=== PATIENT | female | born 1950 | race African-American/Black ===

== ENCOUNTER 2016-12-19 07:08 | Inpatient (IN) | payer MEDICARE, OTHER ==
[2016-12-19] MEDS ORDERED: SODIUM CHLORIDE 0.9% 1,000 ML IV STA (07:27)
--- NOTE | 2016-12-19 07:33 | ED ---
Syncope HPI - General Chief Complaint: Syncope Stated Complaint: Syncope/Fall Time Seen by Provider: 12/19/16 07:08 Source: patient, EMS, RN notes reviewed Mode of arrival: EMS Limitations: no limitations - History of Present Illness Initial Comments: This is a 66-year-old female history of congestive heart failure and morbid obesity who states she went to bed last night blurry murmur that she forgot her phone and got up and next thing she knew she woke up on the floor in the morning. She does not recall passing out she notes she laid on the floor alive however she denies any head or neck or torso pain she states she has had a cough with clear phlegm no fevers chills or sweats she has no prior history of syncope. She denied any palpitations or chest pain. MD Complaint: loss of consciousness - Related Data Home Medications Medication Instructions Recorded Confirmed Albuterol Inhaler [Ventolin Hfa 2 puff INHALATION RT-Q4H PRN 12/19/16 12/19/16 Inhaler] Allopurinol [Zyloprim] 300 mg PO DAILY 12/19/16 12/19/16 Ammonium Lactate Lotion 1 applic TOPICAL TID 12/19/16 12/19/16 [Lac-Hydrin 12% Lotion] Carvedilol Phosphate [Coreg Cr] 40 mg PO DAILY 12/19/16 12/19/16 Cholecalciferol [Vitamin D3] 2,000 unit PO DAILY 12/19/16 12/19/16 Ferrous Sulfate [Feosol] 325 mg PO DAILY 12/19/16 12/19/16 Folic Acid 1 mg PO DAILY 12/19/16 12/19/16 Furosemide [Lasix] 40 mg PO TID 12/19/16 12/19/16 Ipratropium-Albuterol Nebulize 3 ml INHALATION RT-Q6H 12/19/16 12/19/16 [Duoneb 0.5 mg-3 mg/3 ml Soln] Potassium Chloride [Klor-Con 20] 20 meq PO BID 12/19/16 12/19/16 Allergies Allergy/AdvReac Type Severity Reaction Status Date / Time No Known Allergies Allergy Verified 12/19/16 10:27 Review of Systems ROS Statement: Those systems with pertinent positive or pertinent negative responses have been documented in the HPI. ROS Other: All systems not noted in ROS Statement are negative. Past Medical History Past Medical History: Atrial Fibrillation, Hypertension Additional Past Medical History / Comment(s): gout, morbid obesity History of Any Multi-Drug Resistant Organisms: None Reported Past Surgical History: Section, Ear Surgery Past Psychological History: No Psychological Hx Reported Smoking Status: Former smoker Past Alcohol Use History: None Reported Past Drug Use History: None Reported General Exam - General Exam Comments Initial Comments: This is a well-developed morbidly obese female she is awake alert oriented 3 Limitations: no limitations General appearance: alert, in no apparent distress Head exam: Present: atraumatic, normocephalic, normal inspection Eye exam: Present: normal appearance, PERRL, EOMI. Absent: scleral icterus, conjunctival injection, periorbital swelling ENT exam: Present: normal exam, mucous membranes moist Neck exam: Present: normal inspection. Absent: tenderness, meningismus, lymphadenopathy Respiratory exam: Present: wheezes (Occasional wheeze), decreased breath sounds. Absent: respiratory distress, rales, rhonchi, stridor Cardiovascular Exam: Present: normal rhythm, tachycardia, normal heart sounds. Absent: systolic murmur, diastolic murmur, rubs, gallop, clicks GI/Abdominal exam: Present: soft, normal bowel sounds, other (Obese abdomen). Absent: distended, tenderness, guarding, rebound, rigid, bruit, pulsatile mass Extremities exam: Present: full ROM, normal capillary refill, pedal edema, other (Stasis dermatitis with some edema noted). Absent: tenderness, joint swelling, calf tenderness Back exam: Present: normal inspection Neurological exam: Present: alert, oriented X3, CN II-XII intact Psychiatric exam: Present: normal affect, normal mood Skin exam: Present: warm, dry, intact, normal color. Absent: rash Course Vital Signs 12/19/16 12/19/16 12/19/16 07:13 07:25 07:27 Temperature 97.1 F L Pulse Rate 108 H Pulse Rate [ 104 H Remote Sensing Technician ] Respiratory 18 16 Rate Blood Pressure 227/102 O2 Sat by Pulse 92 L Oximetry 12/19/16 12/19/16 12/19/16 07:31 09:17 10:10 Temperature 98 F Pulse Rate 104 H 103 H 108 H Pulse Rate [ Remote Sensing Technician ] Respiratory 18 18 24 Rate Blood Pressure 181/87 189/94 O2 Sat by Pulse 96 99 Oximetry 12/19/16 10:46 Temperature Pulse Rate 103 H Pulse Rate [ Remote Sensing Technician ] Respiratory 24 Rate Blood Pressure 181/99 O2 Sat by Pulse 98 Oximetry EKG Findings - EKG Results: EKG: interpreted by NARCISA, sinus rhythm (Sinus rhythm with rate of 51. We'll 158 QRS duration 14 QT/QTC of 474/436 st-t wave changes are seen.) Medical Decision Making - Medical Decision Making I did reevaluate patient several occasions he is feeling much improved. I did discuss case with Dr. Lemons the patient will be rescheduled for a cardiac cath earlier this week. - Lab Data Result diagrams: 12/19/16 07:10 12/19/16 07:10 Lab Results 12/19/16 12/19/16 12/19/16 Range/Units 07:10 07:10 07:10 WBC 6.1 (3.8-10.6) k/uL RBC 4.63 (3.80-5.40) m/uL Hgb 12.6 (11.4-16.0) gm/dL Hct 43.6 (34.0-46.0) % MCV 94.3 (80.0-100.0) fL MCH 27.2 (25.0-35.0) pg MCHC 28.9 L (31.0-37.0) g/dL RDW 17.8 H (11.5-15.5) % Plt Count 142 L (150-450) k/uL Neutrophils % 72 % Lymphocytes % 12 % Monocytes % 10 % Eosinophils % 1 % Basophils % 1 % Neutrophils # 4.4 (1.3-7.7) k/uL Lymphocytes # 0.7 L (1.0-4.8) k/uL Monocytes # 0.6 (0-1.0) k/uL Eosinophils # 0.1 (0-0.7) k/uL Basophils # 0.1 (0-0.2) k/uL Hypochromasia Marked Anisocytosis Slight PT (9.0-12.0) sec INR (<1.1) APTT (22.0-30.0) sec Sodium (137-145) mmol/L Potassium (3.5-5.1) mmol/L Chloride (98-107) mmol/L Carbon Dioxide (22-30) mmol/L Anion Gap mmol/L BUN (7-17) mg/dL Creatinine (0.52-1.04) mg/dL Est GFR (MDRD) Af Amer (>60 ml/min/1.73 sqM) Est GFR (MDRD) Non-Af (>60 ml/min/1.73 sqM) Glucose (74-99) mg/dL Calcium (8.4-10.2) mg/dL Magnesium (1.6-2.3) mg/dL Total Bilirubin (0.2-1.3) mg/dL AST (14-36) U/L ALT (9-52) U/L Alkaline Phosphatase (38-126) U/L Total Creatine Kinase 83 (30-135) U/L CK-MB (CK-2) 3.6 H* (0.0-2.4) ng/mL CK-MB (CK-2) Rel Index 4.3 Troponin I 0.022 (0.000-0.034) ng/mL NT-Pro-B Natriuret Pep 6580 pg/mL Total Protein (6.3-8.2) g/dL Albumin (3.5-5.0) g/dL 12/19/16 12/19/16 Range/Units 07:10 07:10 WBC (3.8-10.6) k/uL RBC (3.80-5.40) m/uL Hgb (11.4-16.0) gm/dL Hct (34.0-46.0) % MCV (80.0-100.0) fL MCH (25.0-35.0) pg MCHC (31.0-37.0) g/dL RDW (11.5-15.5) % Plt Count (150-450) k/uL Neutrophils % % Lymphocytes % % Monocytes % % Eosinophils % % Basophils % % Neutrophils # (1.3-7.7) k/uL Lymphocytes # (1.0-4.8) k/uL Monocytes # (0-1.0) k/uL Eosinophils # (0-0.7) k/uL Basophils # (0-0.2) k/uL Hypochromasia Anisocytosis PT 14.9 H (9.0-12.0) sec INR 1.5 (<1.1) APTT 23.9 (22.0-30.0) sec Sodium 145 (137-145) mmol/L Potassium 4.3 (3.5-5.1) mmol/L Chloride 106 (98-107) mmol/L Carbon Dioxide 28 (22-30) mmol/L Anion Gap 11 mmol/L BUN 26 H (7-17) mg/dL Creatinine 1.31 H (0.52-1.04) mg/dL Est GFR (MDRD) Af Amer 49 (>60 ml/min/1.73 sqM) Est GFR (MDRD) Non-Af 41 (>60 ml/min/1.73 sqM) Glucose 98 (74-99) mg/dL Calcium 8.7 (8.4-10.2) mg/dL Magnesium 2.0 (1.6-2.3) mg/dL Total Bilirubin 1.4 H (0.2-1.3) mg/dL AST 100 H (14-36) U/L ALT 270 H (9-52) U/L Alkaline Phosphatase 213 H (38-126) U/L Total Creatine Kinase (30-135) U/L CK-MB (CK-2) (0.0-2.4) ng/mL CK-MB (CK-2) Rel Index Troponin I (0.000-0.034) ng/mL NT-Pro-B Natriuret Pep pg/mL Total Protein 6.7 (6.3-8.2) g/dL Albumin 3.2 L (3.5-5.0) g/dL - Radiology Data Radiology results: report reviewed (Imaging study shows no acute findings.), image reviewed Disposition Clinical Impression: Hypoglycemia Disposition: HOME SELF-CARE Condition: Good Instructions: Hypoglycemia in a Person with Diabetes (ED)
[2016-12-19 08:03] LABS: Anisocytosis Slight; Basophils # (A) 0.1 k/uL (0-0.2); Basophils % (A) 1 %; CH 27.2; CHCM 29.1; Eosinophils # (A) 0.1 k/uL (0-0.7); Eosinophils % (A) 1 %; HCT 43.6 % (34.0-46.0); HDW 3.21; HGB 12.6 gm/dL (11.4-16.0); Hypochromasia Marked; Luc # (Auto) 0.23; Luc % (Auto) 4; Lymphocytes # (A) 0.7 k/uL (1.0-4.8); Lymphocytes % (A) 12 %; MCH 27.2 pg (25.0-35.0); MCHC 28.9 g/dL (31.0-37.0); MCV 94.3 fL (80.0-100.0); Mean Platelet Volume 9.1; Monocytes # (A) 0.6 k/uL (0-1.0); Monocytes % (A) 10 %; Neutrophils # (A) 4.4 k/uL (1.3-7.7); Neutrophils % (A) 72 %; RBC 4.63 m/uL (3.80-5.40); RDW 17.8 % (11.5-15.5); WBC 6.1 k/uL (3.8-10.6); WBC (Perox) 6.03
[2016-12-19 08:22] LABS: Calcium 8.7 mg/dL (8.4-10.2); Potassium 4.3 mmol/L (3.5-5.1); Total Bilirubin 1.4 mg/dL (0.2-1.3); Total Protein 6.7 g/dL (6.3-8.2)
[2016-12-19 08:24] LABS: INR 1.5 (<1.1); Partial Thromboplastin Time 23.9 sec (22.0-30.0); Prothrombin Time 14.9 sec (9.0-12.0)
--- NOTE | 2016-12-19 08:33 | XR ---
EXAMINATION TYPE: XR chest 2V DATE OF EXAM: 12/19/2016 8:14 AM COMPARISON: 09/17/2013 HISTORY: 66-year-old female with syncope TECHNIQUE: AP and lateral views FINDINGS: Limited exam due to portable technique and large patient body habitus. Heart appears enlarged. Accent uation of the interstitium and pulmonary vasculature appears increased from previous. Also, there may be trace effusions on the lateral view. Left perihilar prominence can be reassessed at follow-up. IMPRESSION: 1. Limited portable exam. Correlate for CHF and pulmonary vascular congestion. Trace pleural effusion s. 2. Left hilar prominence can be reassessed with a follow-up dedicated PA view of the chest when the p atient is able though appears to be chronic.
[2016-12-19 08:49] LABS: Troponin I 0.022 ng/mL (0.000-0.034)
[2016-12-19 08:51] LABS: Creatine Kinase MB 3.6 ng/mL (0.0-2.4)
--- NOTE | 2016-12-19 09:53 | CT ---
EXAMINATION TYPE: CT brain wo con DATE OF EXAM: 12/19/2016 9:47 AM COMPARISON: NONE HISTORY: 66-year-old female with Syncope/Fall TECHNIQUE: Examination was done in axial plane without intravenous contrast. Coronal and sagittal reconstructio ns performed. CT DLP: 1090.40 mGycm Automated exposure control for dose reduction was used. FINDINGS: There is no evidence of acute intracranial hemorrhage, acute ischemic changes, mass, mass-effect, or extra-axial fluid collection. There is no effacement of cerebral sulci or basal subarachnoid cister ns. There is no hydrocephalus. There is no midline shift. Patel-white matter distinction is preserv ed. Mild mucosal thickening throughout the paranasal sinuses with trace air fluid levels in the right sph enoid and left maxillary sinuses. Orbits and globes are intact. There is normal variant of hyperostos is frontalis interna. No calvarial fracture. Mastoid air cells well pneumatized. IMPRESSION: 1. No acute intracranial abnormality seen. 2. Trace air-fluid levels in the left maxillary and right sphenoid sinuses; correlate for any symptom s of acute sinusitis.
[2016-12-19] MEDS ORDERED: ALBUTEROL NEBULIZED 2.5 MG/3 ML INHALATION PRN (11:25)
--- NOTE | 2016-12-19 11:28 | ED ---
Medical Decision Making - Medical Decision Making I did discuss findings with the patient family members patient will be admitted for evaluation for syncope. She is seen by the visiting physicians at this time she will be admitted to the hospitalist service. - Lab Data Result diagrams: 12/19/16 07:10 12/19/16 07:10 Lab Results 12/19/16 12/19/16 12/19/16 Range/Units 07:10 07:10 07:10 WBC 6.1 (3.8-10.6) k/uL RBC 4.63 (3.80-5.40) m/uL Hgb 12.6 (11.4-16.0) gm/dL Hct 43.6 (34.0-46.0) % MCV 94.3 (80.0-100.0) fL MCH 27.2 (25.0-35.0) pg MCHC 28.9 L (31.0-37.0) g/dL RDW 17.8 H (11.5-15.5) % Plt Count 142 L (150-450) k/uL Neutrophils % 72 % Lymphocytes % 12 % Monocytes % 10 % Eosinophils % 1 % Basophils % 1 % Neutrophils # 4.4 (1.3-7.7) k/uL Lymphocytes # 0.7 L (1.0-4.8) k/uL Monocytes # 0.6 (0-1.0) k/uL Eosinophils # 0.1 (0-0.7) k/uL Basophils # 0.1 (0-0.2) k/uL Hypochromasia Marked Anisocytosis Slight PT (9.0-12.0) sec INR (<1.1) APTT (22.0-30.0) sec Sodium (137-145) mmol/L Potassium (3.5-5.1) mmol/L Chloride (98-107) mmol/L Carbon Dioxide (22-30) mmol/L Anion Gap mmol/L BUN (7-17) mg/dL Creatinine (0.52-1.04) mg/dL Est GFR (MDRD) Af Amer (>60 ml/min/1.73 sqM) Est GFR (MDRD) Non-Af (>60 ml/min/1.73 sqM) Glucose (74-99) mg/dL Calcium (8.4-10.2) mg/dL Magnesium (1.6-2.3) mg/dL Total Bilirubin (0.2-1.3) mg/dL AST (14-36) U/L ALT (9-52) U/L Alkaline Phosphatase (38-126) U/L Total Creatine Kinase 83 (30-135) U/L CK-MB (CK-2) 3.6 H* (0.0-2.4) ng/mL CK-MB (CK-2) Rel Index 4.3 Troponin I 0.022 (0.000-0.034) ng/mL NT-Pro-B Natriuret Pep 6580 pg/mL Total Protein (6.3-8.2) g/dL Albumin (3.5-5.0) g/dL 12/19/16 12/19/16 Range/Units 07:10 07:10 WBC (3.8-10.6) k/uL RBC (3.80-5.40) m/uL Hgb (11.4-16.0) gm/dL Hct (34.0-46.0) % MCV (80.0-100.0) fL MCH (25.0-35.0) pg MCHC (31.0-37.0) g/dL RDW (11.5-15.5) % Plt Count (150-450) k/uL Neutrophils % % Lymphocytes % % Monocytes % % Eosinophils % % Basophils % % Neutrophils # (1.3-7.7) k/uL Lymphocytes # (1.0-4.8) k/uL Monocytes # (0-1.0) k/uL Eosinophils # (0-0.7) k/uL Basophils # (0-0.2) k/uL Hypochromasia Anisocytosis PT 14.9 H (9.0-12.0) sec INR 1.5 (<1.1) APTT 23.9 (22.0-30.0) sec Sodium 145 (137-145) mmol/L Potassium 4.3 (3.5-5.1) mmol/L Chloride 106 (98-107) mmol/L Carbon Dioxide 28 (22-30) mmol/L Anion Gap 11 mmol/L BUN 26 H (7-17) mg/dL Creatinine 1.31 H (0.52-1.04) mg/dL Est GFR (MDRD) Af Amer 49 (>60 ml/min/1.73 sqM) Est GFR (MDRD) Non-Af 41 (>60 ml/min/1.73 sqM) Glucose 98 (74-99) mg/dL Calcium 8.7 (8.4-10.2) mg/dL Magnesium 2.0 (1.6-2.3) mg/dL Total Bilirubin 1.4 H (0.2-1.3) mg/dL AST 100 H (14-36) U/L ALT 270 H (9-52) U/L Alkaline Phosphatase 213 H (38-126) U/L Total Creatine Kinase (30-135) U/L CK-MB (CK-2) (0.0-2.4) ng/mL CK-MB (CK-2) Rel Index Troponin I (0.000-0.034) ng/mL NT-Pro-B Natriuret Pep pg/mL Total Protein 6.7 (6.3-8.2) g/dL Albumin 3.2 L (3.5-5.0) g/dL - Radiology Data Radiology results: report reviewed (I did review the imaging and reports evidence of sinusitis on the CAT scan evidence of pulmonary basilar congestion the x-ray.), image reviewed Critical Care Time Critical Care Time: Yes Critical Care Time: 35 minutes of critical care time which included monitoring the EMS run as well as discussed with paramedics. History physical lab and x-ray evaluation reevaluation the patient to response to therapy reevaluation the patient discussed with family members admission orders documentation above evaluation of old charting available. Disposition Clinical Impression: Congestive heart failure (CHF), Syncope and collapse Disposition: ADMITTED IP TO THIS HOSP Condition: Stable
[2016-12-19 11:33] LABS: Appearance,Urine Cloudy (Clear); Bacteria,Urine Occasional /hpf; Bilirubin,Urine Negative (Negative); Glucose,Urine (UA) Negative (Negative); Ketones,Urine Negative (Negative); Leukocyte Esterase,Urine Small (Negative); Mucus,Urine Rare /hpf; Nitrite,Urine Positive (Negative); Particle Count 79053; Protein,Urine 2+ (Negative); RBC,Urine 170 /hpf (0-5); Specific Gravity,Urine 1.017 (1.001-1.035); Squamous Epithelial Cell,Urine 1 /hpf (0-4); UA Billing (MACRO vs. MICRO) MICRO; WBC,Urine >182 /hpf (0-5)
--- NOTE | 2016-12-19 12:35 | ED ---
Medical Decision Making - Medical Decision Making Second addendum the urinary sample was obtained and does show evidence of UTI patient be placed on antibiotics. - Lab Data Result diagrams: 12/19/16 07:10 12/19/16 07:10 Lab Results 12/19/16 12/19/16 12/19/16 Range/Units 07:10 07:10 07:10 WBC 6.1 (3.8-10.6) k/uL RBC 4.63 (3.80-5.40) m/uL Hgb 12.6 (11.4-16.0) gm/dL Hct 43.6 (34.0-46.0) % MCV 94.3 (80.0-100.0) fL MCH 27.2 (25.0-35.0) pg MCHC 28.9 L (31.0-37.0) g/dL RDW 17.8 H (11.5-15.5) % Plt Count 142 L (150-450) k/uL Neutrophils % 72 % Lymphocytes % 12 % Monocytes % 10 % Eosinophils % 1 % Basophils % 1 % Neutrophils # 4.4 (1.3-7.7) k/uL Lymphocytes # 0.7 L (1.0-4.8) k/uL Monocytes # 0.6 (0-1.0) k/uL Eosinophils # 0.1 (0-0.7) k/uL Basophils # 0.1 (0-0.2) k/uL Hypochromasia Marked Anisocytosis Slight PT (9.0-12.0) sec INR (<1.1) APTT (22.0-30.0) sec Sodium (137-145) mmol/L Potassium (3.5-5.1) mmol/L Chloride (98-107) mmol/L Carbon Dioxide (22-30) mmol/L Anion Gap mmol/L BUN (7-17) mg/dL Creatinine (0.52-1.04) mg/dL Est GFR (MDRD) Af Amer (>60 ml/min/1.73 sqM) Est GFR (MDRD) Non-Af (>60 ml/min/1.73 sqM) Glucose (74-99) mg/dL Calcium (8.4-10.2) mg/dL Magnesium (1.6-2.3) mg/dL Total Bilirubin (0.2-1.3) mg/dL AST (14-36) U/L ALT (9-52) U/L Alkaline Phosphatase (38-126) U/L Total Creatine Kinase 83 (30-135) U/L CK-MB (CK-2) 3.6 H* (0.0-2.4) ng/mL CK-MB (CK-2) Rel Index 4.3 Troponin I 0.022 (0.000-0.034) ng/mL NT-Pro-B Natriuret Pep 6580 pg/mL Total Protein (6.3-8.2) g/dL Albumin (3.5-5.0) g/dL Urine Color Urine Appearance (Clear) Urine pH (5.0-8.0) Ur Specific [place] (1.001-1.035) Urine Protein (Negative) Urine Glucose (UA) (Negative) Urine Ketones (Negative) Urine Blood (Negative) Urine Nitrate (Negative) Urine Bilirubin (Negative) Urine Urobilinogen (<2.0) mg/dL Ur Leukocyte Esterase (Negative) Urine RBC (0-5) /hpf Urine WBC (0-5) /hpf Urine WBC Clumps (None) /hpf Ur Squamous Epith Cells (0-4) /hpf Urine Bacteria (None) /hpf Urine Mucus (None) /hpf 12/19/16 12/19/16 12/19/16 Range/Units 07:10 07:10 11:09 WBC (3.8-10.6) k/uL RBC (3.80-5.40) m/uL Hgb (11.4-16.0) gm/dL Hct (34.0-46.0) % MCV (80.0-100.0) fL MCH (25.0-35.0) pg MCHC (31.0-37.0) g/dL RDW (11.5-15.5) % Plt Count (150-450) k/uL Neutrophils % % Lymphocytes % % Monocytes % % Eosinophils % % Basophils % % Neutrophils # (1.3-7.7) k/uL Lymphocytes # (1.0-4.8) k/uL Monocytes # (0-1.0) k/uL Eosinophils # (0-0.7) k/uL Basophils # (0-0.2) k/uL Hypochromasia Anisocytosis PT 14.9 H (9.0-12.0) sec INR 1.5 (<1.1) APTT 23.9 (22.0-30.0) sec Sodium 145 (137-145) mmol/L Potassium 4.3 (3.5-5.1) mmol/L Chloride 106 (98-107) mmol/L Carbon Dioxide 28 (22-30) mmol/L Anion Gap 11 mmol/L BUN 26 H (7-17) mg/dL Creatinine 1.31 H (0.52-1.04) mg/dL Est GFR (MDRD) Af Amer 49 (>60 ml/min/1.73 sqM) Est GFR (MDRD) Non-Af 41 (>60 ml/min/1.73 sqM) Glucose 98 (74-99) mg/dL Calcium 8.7 (8.4-10.2) mg/dL Magnesium 2.0 (1.6-2.3) mg/dL Total Bilirubin 1.4 H (0.2-1.3) mg/dL AST 100 H (14-36) U/L ALT 270 H (9-52) U/L Alkaline Phosphatase 213 H (38-126) U/L Total Creatine Kinase (30-135) U/L CK-MB (CK-2) (0.0-2.4) ng/mL CK-MB (CK-2) Rel Index Troponin I (0.000-0.034) ng/mL NT-Pro-B Natriuret Pep pg/mL Total Protein 6.7 (6.3-8.2) g/dL Albumin 3.2 L (3.5-5.0) g/dL Urine Color Light Red Urine Appearance Cloudy H (Clear) Urine pH 6.0 (5.0-8.0) Ur Specific [place] 1.017 (1.001-1.035) Urine Protein 2+ H (Negative) Urine Glucose (UA) Negative (Negative) Urine Ketones Negative (Negative) Urine Blood Large H (Negative) Urine Nitrate Positive H (Negative) Urine Bilirubin Negative (Negative) Urine Urobilinogen 3.0 (<2.0) mg/dL Ur Leukocyte Esterase Small H (Negative) Urine RBC 170 H (0-5) /hpf Urine WBC >182 H (0-5) /hpf Urine WBC Clumps Occasional H (None) /hpf Ur Squamous Epith Cells 1 (0-4) /hpf Urine Bacteria Occasional H (None) /hpf Urine Mucus Rare H (None) /hpf Disposition Clinical Impression: Congestive heart failure (CHF), Syncope and collapse, Urinary tract infection Disposition: ADMITTED IP TO THIS HOSP Condition: Stable
[2016-12-19] MEDS ORDERED: NITROGLYCERIN OINT 1 INCH/GM PACKET TOPICAL SCH (13:00)
[2016-12-19] MEDS: SODIUM CHLORIDE 0.9% 1,000 ML IV SCH (13:26)
[2016-12-19] MEDS: ISOSORBIDE MONONITRATE ER 30 MG TAB.ER.24H PO SCH (13:29)
[2016-12-19] MEDS: IPRATROPIUM-ALBUTEROL 3 ML NEB INHALATION SCH ×2 (13:46→20:01)
--- NOTE | 2016-12-19 13:47 | CONS ---
DATE OF CONSULTATION: Ms. Anand is a 66-year-old female with a history of hypertension, history of atrial fibrillation/flutter, although not well documented to me at this point, who was followed by the visiting physician, while at home, turned to get the remote control, felt dizzy and fell to the ground. Apparently, she had a brief syncopal episode, although the duration is not available to me, but she does not think it was a long time. She came to, she was awake, alert, was on the ground for a long time and subsequently was brought into the emergency room. Patient denies any chest pain. She is very limited in her physical activity, has severe dyspnea on exertion. She has morbid obesity, obstructive sleep apnea, uses a CPAP at home. She denies any palpitations. She has no prior syncope. She has no history of PND. She has chronic peripheral edema and chronic skin changes. She has a cough. She has recently been treated for upper respiratory infection. She had vaginal bleeding and is scheduled for D&C. She used to be anticoagulated but has been stopped in August according to her, because of the bleeding. She was at that time admitted to [facility]. Patient denies any prior history of myocardial infarction, but she has history of congestive heart failure according to her. The evaluation of her systolic function is not available to me. Her coronary risk factors are marked for hypertension. She is a nonsmoker, nondiabetic, lipid profile is not available to me. Her medications include DuoNeb, iron, Coreg 40 mg daily, Lasix 40 mg 3 times a day, allopurinol, potassium and folic acid. REVIEW OF SYSTEMS: RESPIRATORY SYSTEM: She had a cough, history of chronic dyspnea on exertion, quite severe. History of obstructive sleep apnea. GI SYSTEM: She has no recent nausea, no vomiting. She has no recent GI bleeding. SYSTEM: She had the vaginal bleeding. NERVOUS SYSTEM: No history of stroke or seizure. PHYSICAL EXAMINATION: A 66-year-old female, alert, oriented, in no apparent distress, morbidly obese. Blood pressure 182/90 with a heart rate in the 100s. HEAD: Normocephalic. EYES: Sclerae nonicteric. NECK: Good upstroke and able ( ). LUNGS: Clear to auscultation. HEART: Tachycardic. S1, S2, no S3, with a systolic murmur at the base. No diastolic murmur. ABDOMEN: Soft, obese, nontender. EXTREMITIES: Chronic skin changes with 2 to 3+ edema bilaterally. LAB DATA: BUN and creatinine 26 and 1.31. Potassium 4.3. Her AST is 100, ALT is 270. NT-proBNP is 6,580. Troponin 0.022. Hemoglobin of 12.6, platelet count of 142. INR 1.5. EKG shows atrial flutter with 2:1 conduction, a rate of [address]-T wave changes. Chest x-ray raised the possibility of congestive heart failure, though it was suboptimal in quality. Her CT scan of the head revealed no acute changes. IMPRESSION: 1. Symptoms of fall and possible syncope could be orthostatic hypotension. 2. Chronic peripheral edema with morbid obesity. Patient may have diastolic dysfunction heart failure. The edema according to her has been chronic and I do not believe that we are have an acute episode of congestive heart failure. 3. Atrial flutter/fibrillation appears to be chronic. 4. History of hypertension. 5. Morbid obesity. 6. Obstructive sleep apnea. RECOMMENDATION: Will switch her to intravenous diuretics. I will add to her regimen hydralazine and nitrate to optimize her blood pressure control. I will increase the dose of her beta shira. I will obtain the prior work-up that was done in [facility], will obtain an echocardiogram with Doppler. I will hold on adding an JUDIE inhibitor pending the progression of her renal function and her level before. Depending on her progress, further recommendation will be made. The patient will need to be anticoagulated, but apparently that was held because of severe vaginal bleeding. Thank you for this consult. Will follow with you.
[2016-12-19] MEDS: HEPARIN SODIUM,PORCINE 5,000 UNIT/ML 1 ML VIAL SQ SCH ×2 (15:20→22:46)
[2016-12-19] MEDS: hydrALAZINE HCL 25 MG TAB PO SCH ×2 (15:21→21:04)
[2016-12-19] MEDS: FUROSEMIDE 10 MG/ML 4 ML VIAL IV SCH ×2 (15:21→22:46)
[2016-12-19] MEDS ORDERED: FUROSEMIDE 40 MG TAB PO SCH ×2 (16:00)
[2016-12-19] MEDS: CARVEDILOL 12.5 MG TAB PO SCH (17:23)
[2016-12-19] MEDS ORDERED: CARVEDILOL 12.5 MG TAB PO SCH (17:30)
[2016-12-19] MEDS: POTASSIUM CHLORIDE ER 20 MEQ TAB.ER PO SCH (21:04)
[2016-12-20] MEDS: IPRATROPIUM-ALBUTEROL 3 ML NEB INHALATION SCH ×4 (02:19→20:17)
[2016-12-20 06:44] LABS: Calcium 8.2 mg/dL (8.4-10.2)
[2016-12-20] MEDS: CARVEDILOL 12.5 MG TAB PO SCH ×2 (08:12→16:45)
[2016-12-20] MEDS: ISOSORBIDE MONONITRATE ER 30 MG TAB.ER.24H PO SCH (08:12)
[2016-12-20] MEDS: FUROSEMIDE 10 MG/ML 4 ML VIAL IV SCH ×3 (08:13→23:18)
[2016-12-20] MEDS: CHOLECALCIFEROL 1,000 UNIT TAB PO SCH (08:13)
[2016-12-20] MEDS: FOLIC ACID 1 MG TAB PO SCH (08:13)
[2016-12-20] MEDS: ALLOPURINOL 300 MG TAB PO SCH (08:13)
[2016-12-20] MEDS: FERROUS SULFATE 325 MG TAB PO SCH (08:13)
[2016-12-20] MEDS: HEPARIN SODIUM,PORCINE 5,000 UNIT/ML 1 ML VIAL SQ SCH ×3 (08:13→23:19)
[2016-12-20] MEDS: POTASSIUM CHLORIDE ER 20 MEQ TAB.ER PO SCH ×2 (08:13→21:02)
[2016-12-20] MEDS: hydrALAZINE HCL 25 MG TAB PO SCH ×3 (08:13→21:02)
[2016-12-20 12:18] LABS: Glucose,Whole Blood 110 mg/dL (75-99)
[2016-12-20] MEDS: SODIUM CHLORIDE 0.9% 1,000 ML IV SCH (12:46)
--- NOTE | 2016-12-20 13:50 | HP ---
DATE OF ADMISSION: 12/19/2016 PRESENTING COMPLAINT: Dizzy, passed out. HISTORY OF PRESENTING COMPLAINT: This is a 66-year-old patient who follows with [facility]. Chronic stable medical conditions include asthma, hypertension, osteoarthritis, sleep apnea, gout. Patient uses a walker to get about in her apartment. Patient is morbidly obese with a weight of over 200 kg. Patient has occasional falls. Went to get her phone and then patient felt dizzy and then she fell down. She thinks she must have gone for about at least 20 minutes as one of the programs she watches in the evening was still on when she came about. Denies any palpitations or chest pain. Patient when arrived her, found to be in atrial flutter with a rate just over 100. Patient denies any headache. No change in vision, no change in speech, no focal weakness. The patient just is recovering from a cough and cold. Did not take any medication for the same. REVIEW OF SYSTEMS: CONSTITUTIONAL: Tired. HEENT: None. RESPIRATORY: As above. CARDIOVASCULAR: No chest pain. GASTROINTESTINAL: None. GENITOURINARY: None. MUSCULOSKELETAL: Pain in the joints. DERMATOLOGICAL: None. HEMATOLOGICAL: None. LYMPHATIC: None. PSYCHIATRY: None. NEUROLOGICAL: No focal. PAST MEDICAL HISTORY: Atrial fibrillation, asthma, congestive heart failure, hypertension, osteoarthritis, pneumonia, sleep apnea with CPAP, gout, arthritis in multiple joints, wounds. PAST SURGICAL HISTORY: , knee surgery, debridement bilateral pedal toenails. SOCIAL HISTORY: Lives at [facility] on the second floor, uses a walker to get about. Uses transportation from [employer]. Patient smoked for about 32 years, stopped in 2002. FAMILY HISTORY: Mother had colon cancer at age of 54. HOME MEDICATIONS: 1. Lac-Hydrin 12% topical t.i.d. 2. DuoNeb q.6. 3. Ferrous sulfate 325 p.o. daily. 4. Coreg CR 40 mg daily. 5. Ventolin HFA 2 puffs q.4 p.r.n. 6. Lasix 40 mg t.i.d. 7. Vitamin D3 two thousand units daily. 8. Allopurinol 300 mg daily. 9. Potassium 20 mEq p.o. b.i.d. 10. Folic acid 1 mg daily. ALLERGIES: None. On examination, temperature 97.1, pulse 108, respiration 18, blood pressure initially 227/102, repeat 181/87, pulse ox 96% on room air. GENERAL APPEARANCE: Morbidly obese with 200 kg and BMI of 73.6, sitting up in a chair, not in distress. EYES: Pupils equal, conjunctivae normal. HEENT: Neck short, thick, mass not palpable. JVD unable to assess. Respiratory effort increased. LUNGS: Distant breath sounds. CARDIOVASCULAR: Heart sounds distant. No edema. ABDOMEN: Distended, soft. Liver and spleen not palpable. LYMPHATIC: No lymph nodes palpable in neck or axillae. PSYCHIATRY: Alert and oriented x3. Mood and affect normal. NEUROLOGICAL: Pupils equal. Cranial nerves grossly intact. Power and sensation grossly intact. INVESTIGATIONS: Telemetry shows heart rate goes up to 150 with minimal activity. White count 6.1, hemoglobin 12.6, potassium 4.3. BUN 26, creatinine 1.31, troponin I 0.022, TSH positive for nitrate, leukocyte esterase, WBC 182. ASSESSMENT: 1. Persistent atrial fibrillation with rapid ventricular rate with minimal activity, likely responsible for patient's episode of syncope. 2. Acute urinary tract infection. 3. Increased LFTs, likely fatty liver. 4. Chronic kidney disease stage III, probably from hypertensive nephrosclerosis. 5. Chronic obstructive pulmonary disease in an ex-smoker. 6. Essential hypertension. 7. Primary osteoarthritis in multiple joints, bilateral. 8. Obstructive sleep apnea, uses a CPAP. 9. Chronic gout. 10. Thrombocytopenia, mild. PLAN: Patient is on Coreg 25 twice a day, switched over here. Home medications are resumed. Patient definitely not a candidate for anticoagulation because of history of fall she gives. Cardiology put the patient on IV Lasix, possibly from underlying diastolic dysfunction. Dose of beta shira has been increased. Care was discussed with the patient.
[2016-12-20 14:54] VITALS: BMI 73.5
--- NOTE | 2016-12-20 14:56 | P.PN ---
Subjective Principal diagnosis: Syncope This is a 66-year-old female with history of hypertension, atrial fibrillation, obstructive sleep apnea, uses CPAP at home, and chronic peripheral edema, who presented to the hospital following a brief syncopal episode. She was seen in consultation by Dr. Flores yesterday. Patient was also on some mild heart failure, diastolic, has been diuresing well on IV Lasix. The patient used to be on anticoagulation but because of vaginal bleeding this was discontinued. Although the echo report is yet pending, a verbal report was given by the garbage collector supervisor, stated that the RA pressures were elevated and right ventricle hypokinetic. Upon review of recent echo, this was similar to that. We will continue IV Lasix for 24 hours. Changed to by mouth Lasix tomorrow. Patient will need to be resumed on anticoagulation once stable from the bleeding perspective. Blood pressure today 135/60 with a heart rate in the 90s. Edema improved today. Objective - Vital Signs Vital signs: Vital Signs Temp 97.1 F L 12/20/16 08:00 Pulse 100 12/20/16 13:49 Resp 18 12/20/16 12:00 BP 135/61 12/20/16 12:00 Pulse Ox 98 12/20/16 12:00 Intake & Output 12/19/16 12/20/16 12/20/16 18:59 06:59 18:59 Intake Total 120 Output Total 300 400 Balance 120 -300 -400 Weight 200.5 kg Intake: Oral 120 Output: Urine 300 400 Other: Voiding Method Bedside Commode Bedpan Bedpan # Voids 1 1 - Exam PHYSICAL EXAMINATION: HEENT: Head is atraumatic, normocephalic. Pupils equal, round. Neck is supple. There is no elevated jugular venous pressure. HEART EXAMINATION: S1 and S2 systolic murmur is heard. CHEST EXAMINATION: Lungs are clear to auscultation. ABDOMEN: Soft, obese, nontender. Bowel sounds are heard. No organomegaly noted. EXTREMITIES: 1+ peripheral pulses with 2+ evidence of peripheral edema and no calf tenderness noted. NEUROLOGIC patient is awake, alert and oriented -3. . - Labs CBC & Chem 7: 12/19/16 07:10 12/20/16 05:32 Labs: Abnormal Lab Results - Last 24 Hours (Table) 12/20/16 12/20/16 Range/Units 05:32 12:13 BUN 23 H (7-17) mg/dL Creatinine 1.31 H (0.52-1.04) mg/dL POC Glucose (mg/dL) 110 H (75-99) mg/dL Calcium 8.2 L (8.4-10.2) mg/dL Assessment and Plan (1) Syncope Status: Acute (2) Diastolic CHF, acute on chronic Status: Acute (3) Chronic edema Status: Acute (4) Atrial flutter Status: Acute (5) HTN (hypertension) Status: Acute (6) Morbid obesity Status: Acute (7) Sleep apnea Status: Acute Plan: From cardiology's perspective, we'll continue current dose of IV Lasix until tomorrow. Continue to monitor intake and output. Patient will need to be resumed on anticoagulation once stable from a bleeding perspective. We will continue to follow. DNP note has been reviewed, I agree with a documented findings and plan of care. Patient was seen and examined.
[2016-12-20 17:33] LABS: Glucose,Whole Blood 99 mg/dL (75-99)
[2016-12-21] MEDS: CARVEDILOL 12.5 MG TAB PO SCH ×2 (06:39→17:25)
[2016-12-21] MEDS: FUROSEMIDE 10 MG/ML 4 ML VIAL IV SCH (08:12)
[2016-12-21] MEDS: HEPARIN SODIUM,PORCINE 5,000 UNIT/ML 1 ML VIAL SQ SCH ×3 (08:16→23:35)
[2016-12-21] MEDS: ISOSORBIDE MONONITRATE ER 30 MG TAB.ER.24H PO SCH (08:20)
[2016-12-21] MEDS: POTASSIUM CHLORIDE ER 20 MEQ TAB.ER PO SCH ×2 (08:20→20:59)
[2016-12-21] MEDS: ALLOPURINOL 300 MG TAB PO SCH (08:21)
[2016-12-21] MEDS: FERROUS SULFATE 325 MG TAB PO SCH (08:21)
[2016-12-21] MEDS: CHOLECALCIFEROL 1,000 UNIT TAB PO SCH (08:21)
[2016-12-21] MEDS: FOLIC ACID 1 MG TAB PO SCH (08:21)
[2016-12-21] MEDS: hydrALAZINE HCL 25 MG TAB PO SCH ×3 (08:22→20:59)
[2016-12-21] MEDS: IPRATROPIUM-ALBUTEROL 3 ML NEB INHALATION SCH ×3 (08:47→20:05)
[2016-12-21] MEDS: SODIUM CHLORIDE 0.9% 1,000 ML IV SCH (11:48)
--- NOTE | 2016-12-21 12:31 | P.PN ---
Subjective Principal diagnosis: Syncope This is a 66-year-old female with history of hypertension, atrial fibrillation, obstructive sleep apnea, uses CPAP at home, and chronic peripheral edema, who presented to the hospital following a brief syncopal episode. She was seen in consultation by Dr. Flores yesterday. Patient was also on some mild heart failure, diastolic, has been diuresing well on IV Lasix. The patient used to be on anticoagulation but because of vaginal bleeding this was discontinued. Although the echo report is yet pending, a verbal report was given by the relay telegrapher, stated that the RA pressures were elevated and right ventricle hypokinetic. Upon review of recent echo, this was similar to that. Patient was seen and examined this morning, continue to diurese well on IV Lasix. We will discontinue the IV Lasix today and put the patient back on her home dose of Lasix at 40 mg by mouth 3 times a day. Objective - Vital Signs Vital signs: Vital Signs Temp 96.8 F L 12/21/16 08:00 Pulse 74 12/21/16 11:48 Resp 16 12/21/16 11:48 BP 105/57 12/21/16 11:48 Pulse Ox 100 12/21/16 11:48 Intake & Output 12/20/16 12/21/16 12/21/16 18:59 06:59 18:59 Intake Total 360 1080 534 Output Total 1380 1000 Balance -1020 80 534 Weight 200.5 kg 200 kg Intake: IV 14 Invasive Line 1 14 Oral 360 1080 520 Output: Urine 1380 1000 Other: Voiding Method Bedpan Bedpan Bedpan Diaper # Voids 1 1 # Bowel Movements 0 0 - Exam PHYSICAL EXAMINATION: HEENT: Head is atraumatic, normocephalic. Pupils equal, round. Neck is supple. There is no elevated jugular venous pressure. HEART EXAMINATION: S1 and S2 systolic murmur is heard. CHEST EXAMINATION: Lungs are clear to auscultation. ABDOMEN: Soft, obese, nontender. Bowel sounds are heard. No organomegaly noted. EXTREMITIES: 1+ peripheral pulses with 2+ evidence of peripheral edema and no calf tenderness noted. NEUROLOGIC patient is awake, alert and oriented -3. . - Labs CBC & Chem 7: 12/19/16 07:10 12/20/16 05:32 Assessment and Plan (1) Syncope Status: Acute (2) Diastolic CHF, acute on chronic Status: Acute (3) Chronic edema Status: Acute (4) Atrial flutter Status: Acute (5) HTN (hypertension) Status: Acute (6) Morbid obesity Status: Acute (7) Sleep apnea Status: Acute Plan: From cardiology's perspective, we'll discontinue the IV Lasix, put the patient back on Lasix 40 mg one tablet by mouth 3 times a day. We will make her a follow-up appointment to see Dr. Monte in the office post discharge. DNP note has been reviewed, I agree with a documented findings and plan of care. Patient was seen and examined.
[2016-12-21] MEDS: FUROSEMIDE 40 MG TAB PO SCH ×3 (12:37→20:59)
--- NOTE | 2016-12-21 20:06 | PN ---
DATE OF SERVICE: 12/21/2016 PRESENTING COMPLAINT: Dizzy, edema. INTERVAL HISTORY: This is a patient who presented with dizziness and passed out, felt to be from underlying arrhythmia. Patient has had some underlying atrial fibrillation. The patient had been on IV Lasix, switched to p.o. Lasix today. Patient difficult to get about. 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 The patient is tolerating a diet. Overall doing better. Review of systems done for constitutional, cardiovascular, GI, pulmonary; relevant findings as above. Current medications include p.o. Lasix. On examination, temperature 96.8, pulse 81, respiratory rate 16, blood pressure 101/58, pulse ox 99% on 2 liters. GENERAL APPEARANCE: Sitting up, eating. EYES: Pupils equal. Conjunctivae normal. NECK: JVD unable to assess. RESPIRATORY: Effort normal. LUNGS: Distant breath sounds. CARDIOVASCULAR: Heart sounds distant. Minimal edema. ABDOMEN: Distended, soft. Liver and spleen not palpable. PSYCHIATRY: Alert and oriented x3. Mood and affect normal. INVESTIGATIONS: BUN 23, creatinine 1.31. ASSESSMENT: 1. Persistent atrial fibrillation likely reason for the patient's syncope. 2. Acute urinary tract infection. 3. Fatty liver causing elevated liver enzymes likely. 4. Chronic kidney stage III, probably from hypertensive nephrosclerosis. 5. Chronic obstructive pulmonary disease in an ex-smoker. 6. Essential hypertension. 7. Primary osteoarthritis in multiple joints, bilateral. 8. Obstructive sleep apnea uses CPAP. 9. Chronic gout. PLAN: Patient will be switched over to Lasix. deer farm worker looking into placement. Patient has got a total of 6 doses of Ceftin for urinary tract infection. Check labs in the morning. Awaiting results of 2-D echo.
[2016-12-21] MEDS: CEFUROXIME 250 MG TAB PO SCH (20:59)
[2016-12-22] MEDS: CARVEDILOL 12.5 MG TAB PO SCH (06:39)
[2016-12-22 06:56] LABS: Calcium 8.4 mg/dL (8.4-10.2); Potassium 4.4 mmol/L (3.5-5.1)
[2016-12-22] MEDS: IPRATROPIUM-ALBUTEROL 3 ML NEB INHALATION SCH ×2 (08:22→13:24)
[2016-12-22] MEDS: HEPARIN SODIUM,PORCINE 5,000 UNIT/ML 1 ML VIAL SQ SCH (08:26)
[2016-12-22] MEDS: ALLOPURINOL 300 MG TAB PO SCH (08:29)
[2016-12-22] MEDS: CEFUROXIME 250 MG TAB PO SCH (08:30)
[2016-12-22] MEDS: FUROSEMIDE 40 MG TAB PO SCH (08:30)
[2016-12-22] MEDS: FERROUS SULFATE 325 MG TAB PO SCH (08:30)
[2016-12-22] MEDS: FOLIC ACID 1 MG TAB PO SCH (08:31)
[2016-12-22] MEDS: CHOLECALCIFEROL 1,000 UNIT TAB PO SCH (08:31)
[2016-12-22] MEDS: hydrALAZINE HCL 25 MG TAB PO SCH (08:32)
[2016-12-22] MEDS: ISOSORBIDE MONONITRATE ER 30 MG TAB.ER.24H PO SCH (08:32)
[2016-12-22] MEDS: POTASSIUM CHLORIDE ER 20 MEQ TAB.ER PO SCH (08:32)
--- NOTE | 2016-12-22 10:52 | P.PN ---
Subjective Principal diagnosis: Syncope 66-year-old female patient with a history of hypertension, atrial fibrillation, obstructive sleep apnea, uses CPAP at home, and chronic peripheral edema present hospital following a brief syncopal episode. Patient was also noted to have some mild heart failure, diastolic was on IV Lasix and diuresed well. She is currently on by mouth Lasix. The patient had been on anticoagulation but has been on hold due to vaginal bleeding for which she needs a D&C. An echocardiogram was completed that showed elevated RA pressures and hypokinetic RV. Previous echo showed similar findings. On examination today, patient is resting comfortably laying flat in bed. She does say that she feels her breathing is shallow but does not necessarily complain of shortness of breath. His complaints of chest discomfort, palpitations, dizziness or lightheadedness. She does complain of lower extremity edema since this is related to her stopping her Lasix at home for quite some time. We did discuss the importance of medication compliance. Objective - Vital Signs Vital signs: Vital Signs Temp 96.0 F L 12/22/16 08:00 Pulse 68 12/22/16 08:35 Resp 20 12/22/16 08:00 BP 112/67 12/22/16 08:00 Pulse Ox 95 12/22/16 08:24 Intake & Output 12/21/16 12/22/16 12/22/16 18:59 06:59 18:59 Intake Total 1176 370 Output Total 250 Balance 1176 120 Weight 200.9 kg Intake: IV 14 10 Invasive Line 1 14 10 Oral 1162 360 Output: Urine 250 Other: Voiding Method Bedpan Bedside Commode Bedside Commode Diaper Diaper Diaper # Voids 1 1 1 - Exam PHYSICAL EXAMINATION: HEENT: Head is atraumatic, normocephalic. Pupils equal, round. Neck is supple. There is no elevated jugular venous pressure. HEART EXAMINATION: Heart sounds irregular irregular, S1 and S2 with a systolic murmur. CHEST EXAMINATION: Lungs are clear to auscultation and precussion. No chest wall tenderness is noted on palpation or with deep breathing. ABDOMEN: Soft, obese, nontender. Bowel sounds are heard. No organomegaly noted. EXTREMITIES: 2+ peripheral pulses with evidence of 2+ peripheral edema and no calf tenderness noted. NEUROLOGIC patient is awake, alert and oriented x3. . - Labs CBC & Chem 7: 12/19/16 07:10 12/22/16 05:46 Labs: Abnormal Lab Results - Last 24 Hours (Table) 12/22/16 Range/Units 05:46 BUN 25 H (7-17) mg/dL Creatinine 1.40 H (0.52-1.04) mg/dL Assessment and Plan (1) Atrial flutter Status: Chronic (2) Chronic edema Status: Chronic (3) Diastolic CHF, acute on chronic Status: Acute (4) HTN (hypertension) Status: Chronic (5) Morbid obesity Status: Chronic (6) Sleep apnea Status: Chronic (7) Syncope Status: Acute Plan: From technical communicator perspective, patient is stable for discharge to [facility]. She will need to resume anticoagulation as soon as possible following D&C. She will follow-up with Dr. Lemons in the office. STUFFING MACHINE OPERATOR note has been reviewed, I agree with a documented findings and plan of care. Patient was seen and examined.
[2016-12-22 12:49] VITALS: BP 106/56; RESP 16; TEMP 96.2
[2016-12-22 13:26] VITALS: PULSE 72
--- NOTE | 2016-12-22 13:57 | DS ---
DATE OF ADMISSION: 12/19/2016 DATE OF DISCHARGE: 12/22/2016 FINAL DIAGNOSES: 1. Persistent atrial fibrillation causing syncope. 2. Acute urinary tract infection, present at admission. 3. Fatty liver causing elevated liver enzymes likely. 4. Chronic kidney disease stage 3 from hypertensive nephrosclerosis. 5. Chronic obstructive pulmonary disease in an ex-smoker. 6. Essential hypertension. 7. Primary osteoarthritis of multiple joints, bilateral. 8. Obstructive sleep apnea uses continuous positive airway pressure. 9. Chronic gout. 10. Acute on chronic congestive heart failure from diastolic dysfunction, ejection fraction not known. HOSPITAL COURSE: This patient presented with syncope felt to underlying arrhythmia. Patient not felt a candidate for anticoagulation because of high risk of fall and vaginal bleeding. The patient also felt to have CHF, given diuretics, doing better at the time of discharge. On examination, LUNGS: Distant breath sounds. CARDIOVASCULAR: Heart sounds muffled. Edema minimal. PSYCH: Alert and oriented x3. CONSULTATION: Dr. Flores from cardiology. LABS: BUN and creatinine 25 and 1.40 at the time of discharge. DISCHARGE MEDICATIONS: 1. Ventolin HFA 2 puffs q.4 p.r.n. 2. Allopurinol 300 mg a day. 3. Lac-Hydrin 12% 1 application topical t.i.d. 4. Vitamin D3 1000 units p.o. daily. 5. Iron 65 mg p.o. daily. 6. Folic acid 1 mg p.o. daily. 7. Lasix 40 mg p.o. t.i.d. 8. DuoNeb every 6 hours. 9. Potassium 20 mEq p.o. b.i.d. 10. Coreg 25 mg p.o. b.i.d. 11. Ceftin 250 mg p.o. b.i.d. 6 tablets. 12. Imdur ER 30 mg daily. 13. Hydralazine 25 mg p.o. t.i.d. DISPOSITION: La. Follow up with Dr. Monte in 2 weeks. Follow up with [facility] from [facility]; follow up with Dr. Rodriguez at the [facility]. LABS: CBC, CMP in 3 days.
--- NOTE | 2016-12-27 10:12 | ECHOF ---
Referral Reason:chf MEASUREMENTS -------- HEIGHT: 165.1 cm WEIGHT: 182.8 kg BP: 164/92 RVIDd: 3.6 cm (< 3.3) IVSd: 1.4 cm (0.6 - 1.1) LVIDd: 4.7 cm (3.9 - 5.3) LVPWd: 1.3 cm (0.6 - 1.1) IVSs: 1.8 cm LVIDs: 3.6 cm LVPWs: 1.9 cm LA Diam: 3.8 cm (2.7 - 3.8) Ao Diam: 2.9 cm (2.0 - 3.7) AV Cusp: 1.8 cm (1.5 - 2.6) LA Diam: 3.5 cm (2.7 - 3.8) MV EXCURSION: 14.056 mm (> 18.000) MV EF SLOPE: 79 mm/s (70 - 150) EPSS: 1.0 cm RAP: 15.00 mmHg RVSP: 51.99 mmHg FINDINGS -------- The rhythm appears to be atrial flutter. This was a technically difficult study with suboptimal views. There is moderate concentric left ventricular hypertrophy. Overall left ventricular systolic function is mild-moderately impaired with, an EF between 40 - 45 %. The right ventricle is mildly enlarged. The right ventricular systolic function is severely impaired. The right ventricular septal wall is flattened in diastole and systole which is consistent with right ventricular volume and pressure overload. The left atrium is mildly dilated. The right atrium is normal in size. The aortic valve is trileaflet and appears structurally normal. The mitral valve leaflets are mildly thickened. Mild mitral annular calcification present. Mild mitral regurgitation is present. Mild tricuspid regurgitation present. There is moderate pulmonary hypertension. The right ventricular systolic pressure, as measured by Doppler, is 51.99mmHg. Trace/mild (physiologic) pulmonic regurgitation. The aortic root size is normal. The inferior vena cava is dilated with no significant inspiratory collapse which is consistent estimated right atrial pressure of >15 mmHg. There is no pericardial effusion. CONCLUSIONS -------- 1. The rhythm appears to be atrial flutter. 2. The aortic valve is trileaflet and appears structurally normal. 3. The mitral valve leaflets are mildly thickened. 4. Mild mitral annular calcification present. 5. Mild mitral regurgitation is present. 6. Mild tricuspid regurgitation present. 7. There is moderate pulmonary hypertension. 8. The right ventricular systolic pressure, as measured by Doppler, is 51.99mmHg. 9. Trace/mild (physiologic) pulmonic regurgitation. 10. The aortic root size is normal. 11. The inferior vena cava is dilated with no significant inspiratory collapse which is consistent estimated right atrial pressure of >15 mmHg. 12. This was a technically difficult study with suboptimal views. 13. There is no pericardial effusion. 14. There is moderate concentric left ventricular hypertrophy. 15. Overall left ventricular systolic function is mild-moderately impaired with, an EF between 40 - 45 %. 16. The right ventricle is mildly enlarged. 17. The right ventricular systolic function is severely impaired. 18. The right ventricular septal wall is flattened in diastole and systole which is consistent with right ventricular volume and pressure overload. 19. The left atrium is mildly dilated. 20. The right atrium is normal in size. HEDIS ANALYST: Zora Romero RDCS
== END 2016-12-22 15:27 | DRG 292 ==
LOC: EC 07:08 → 6SEL 11:28
PROVIDERS: ADMIT Hospitalist; ATTEND Hospitalist
DX: I50.33 Acute on chronic diastolic (congestive) heart failure (principal); I48.1 Persistent atrial fibrillation; I48.92 Unspecified atrial flutter; N39.0 Urinary tract infection, site not specified; D69.6 Thrombocytopenia, unspecified; I12.9 Hypertensive chronic kidney disease with stage 1 through stage 4 chronic kidney disease, or unspecified chronic kidney disease; E66.01 Morbid (severe) obesity due to excess calories; K76.0 Fatty (change of) liver, not elsewhere classified; J44.9 Chronic obstructive pulmonary disease, unspecified; N18.3 Chronic kidney disease, stage 3 (moderate); E16.2 Hypoglycemia, unspecified; G47.33 Obstructive sleep apnea (adult) (pediatric); J45.909 Unspecified asthma, uncomplicated; M15.9 Polyosteoarthritis, unspecified; M1A.9XX0 Chronic gout, unspecified, without tophus (tophi); Z79.899 Other long term (current) drug therapy; Z87.891 Personal history of nicotine dependence
CPT/HCPCS: 36415; 70450; 71020; 80048; 80053; 81001; 82550; 82553; 83735; 83880; 84443; 84484; 85025; 85610; 85730; 87502; 93005; 93306; 94640; 94760; 99291

== ENCOUNTER 2016-12-26 06:05 | Day surgery (SDC) | payer MEDICARE ==
--- NOTE | 2016-12-25 09:23 | P.HPOB ---
History of Present Illness H&P Date: 12/25/16 Chief Complaint: post menopausal bleeding 66 year old presents for D&C hysteroscopy. She started with some vaginal bleeding after she was placed on anticoagulation therapy due to CHF and arrhythmia. She has since stopped the anticoagulation treatment but continues to have some bleeding. Review of Systems All systems: negative Constitutional: Denies chills, Denies fever Eyes: denies blurred vision, denies pain Ears, nose, mouth and throat: Denies headache, Denies sore throat Cardiovascular: Denies chest pain, Denies shortness of breath Respiratory: Denies cough Gastrointestinal: Denies abdominal pain, Denies diarrhea, Denies nausea, Denies vomiting Genitourinary: Denies dysuria, Denies hematuria Musculoskeletal: Denies myalgias Integumentary: Denies pruritus, Denies rash Neurological: Denies numbness, Denies weakness Psychiatric: Denies anxiety, Denies depression Endocrine: Denies fatigue, Denies weight change Past Medical History Past Medical History: Atrial Flutter, Asthma, Heart Failure, Hypertension, Osteoarthritis (OA), Sleep Apnea/CPAP/BIPAP Additional Past Medical History / Comment(s): Hx. of Gout, taking antx.'s for current UTI, sinus problems, hx. of LLE cellulitis & wound to that area. Recently adm to [facility] for CHF and discharged on 12-22-16 to [facility] for physical therapy. History of Any Multi-Drug Resistant Organisms: None Reported Past Surgical History: Section, Ear Surgery, Tubal Ligation Additional Past Surgical History / Comment(s): Debridement bilat.toenails, colonoscopy, L ear benign tumor removed. Past Anesthesia/Blood Transfusion Reactions: No Reported Reaction Past Psychological History: No Psychological Hx Reported Smoking Status: Former smoker Past Alcohol Use History: Rare Additional Past Alcohol Use History / Comment(s): Patient quit smoking in 2002. Started in 1970. Past Drug Use History: None Reported - Past Family History Mother Family Medical History: Cancer Additional Family Medical History / Comment(s): Colon Medications and Allergies Home Medications Medication Instructions Recorded Confirmed Type Albuterol Inhaler [Ventolin Hfa 2 puff INHALATION RT-Q4H PRN 12/19/16 12/19/16 History Inhaler] Allopurinol [Zyloprim] 300 mg PO DAILY 12/19/16 12/19/16 History Ammonium Lactate Lotion 1 applic TOPICAL TID 12/19/16 12/19/16 History [Lac-Hydrin 12% Lotion] Cholecalciferol [Vitamin D3] 2,000 unit PO DAILY 12/19/16 12/19/16 History Ferrous Sulfate [Iron (65 MG 325 mg PO DAILY 12/19/16 12/19/16 History Elemental)] Folic Acid 1 mg PO DAILY 12/19/16 12/19/16 History Furosemide [Lasix] 40 mg PO TID 12/19/16 12/19/16 History Ipratropium-Albuterol Nebulize 3 ml INHALATION RT-Q6H 12/19/16 12/19/16 History [Duoneb 0.5 mg-3 mg/3 ml Soln] Potassium Chloride [Klor-Con 20] 20 meq PO BID 12/19/16 12/19/16 History Allergies Allergy/AdvReac Type Severity Reaction Status Date / Time No Known Allergies Allergy Verified 12/19/16 10:27 Exam Osteopathic Statement: *. No significant issues noted on an osteopathic structural exam other than those noted in the History and Physical/Consult. Heart: RRR Lungs: CTAB Abdomen: soft, nontender Extremeties: neg kristal's Assessment and Plan (1) Post-menopausal bleeding Status: Acute Plan: 1. D&C hysteroscopy
[2016-12-25 10:53] VITALS: BMI 73.8
[~2016-12-26 06:05] MED LIST: DEXAMETHASONE SOD PHOSPHATE 10 MG/ML 1 ML VIAL IV ONE; HYDROmorphone 1 MG/ML 1 ML SYRINGE IVP PRN; LACTATED RINGERS 1,000 ML IV SCH; LIDOCAINE 1% 20 ML VIAL (10MG/ML) FOR IV START INTRADERMA PRN; MIDAZOLAM 2 MG/2 ML VIAL IV PRN; ONDANSETRON 4 MG/2 ML VIAL IVP ONE; Pre Op ABX Message 1 EACH MISC MISCELLANE ONE; SCOPOLAMINE 1.5MG/72HR PATCH TRANSDERM ONE
[2016-12-26] MEDS ORDERED: PROPOFOL 10 MG/ML 20 ML VIAL IV ONE (08:07)
[2016-12-26] MEDS ORDERED: SUCCINYLCHOLINE CHLORIDE VIAL 200 MG/10 ML VIAL IV ONE (08:07)
[2016-12-26] MEDS ORDERED: LIDOCAINE 1% INJ 10MG/ML (20 ML MDV) ONE (08:07)
--- NOTE | 2016-12-26 08:55 | P.OP ---
Date of Procedure: 12/26/16 Preoperative Diagnosis: 1. Postmenopausal bleeding Postoperative Diagnosis: 1. Postmenopausal bleeding Procedure(s) Performed: Pap smear, D&C Anesthesia: JAMSHID Surgeon: Sondra Alcaraz Estimated Blood Loss (ml): 5 IV fluids (ml): 100 Urine output (ml): 10 Pathology: other (Pap smear, endometrial curettings) Condition: stable Disposition: PACU Operative Findings: Uterus sounded to 9 cm, minimal amount of endometrial tissue Description of Procedure: Patient is taken the operating room where general anesthesia was obtained without difficulty. She is prepped and draped in normal sterile fashion dorsal funny position, legs placed in the Kraig stirrups. Bladder was drained of all urine. Weighted speculum was not adequate so a bivalve speculum was placed in the vagina and the anterior lip the cervix was grasped with the tenaculum. The uterus was sounded to 9 cm. Cervix was dilated to #8 Hegar dilator. Sharp curet was gently used to obtain endometrial curettings. All instrument removed from the vagina. Patient tolerated the procedure well, sponge and instrument counts are correct 2 and she was taken to recovery room in stable condition.
[2016-12-26 09:14] VITALS: TEMP 97
[2016-12-26 18:15] VITALS: BP 118/78; PULSE 70; RESP 22
== END 2016-12-26 16:55 ==
LOC: OR 06:05
PROVIDERS: ATTEND Obstetrics & Gynecology
DX: N72 Inflammatory disease of cervix uteri (principal); N85.8 Other specified noninflammatory disorders of uterus; I50.9 Heart failure, unspecified; I49.9 Cardiac arrhythmia, unspecified; I10 Essential (primary) hypertension; I48.91 Unspecified atrial fibrillation; J44.9 Chronic obstructive pulmonary disease, unspecified; J45.909 Unspecified asthma, uncomplicated; Z87.891 Personal history of nicotine dependence; G47.33 Obstructive sleep apnea (adult) (pediatric); Z99.81 Dependence on supplemental oxygen; Z99.89 Dependence on other enabling machines and devices; N28.9 Disorder of kidney and ureter, unspecified; F03.90 Unspecified dementia, unspecified severity, without behavioral disturbance, psychotic disturbance, mood disturbance, and anxiety; M10.9 Gout, unspecified; Z79.2 Long term (current) use of antibiotics; Z79.899 Other long term (current) drug therapy
CPT/HCPCS: 88305; 58120; J0330; J1100; J2405; J2001; J2704

== ENCOUNTER 2016-12-30 06:40 | Inpatient (IN) | payer MEDICARE ==
[2016-12-30] MEDS ORDERED: SODIUM CHLORIDE 0.9% 1,000 ML IV ONE (06:48)
--- NOTE | 2016-12-30 06:54 | ED ---
General Adult HPI - General Source: patient, EMS, RN notes reviewed, old records reviewed Mode of arrival: EMS <BrianBereket - Last Filed: 12/30/16 06:49> <Usman Sunshine - Last Filed: 12/30/16 09:32> - General Stated complaint: abnormal labs Time Seen by Provider: 12/30/16 06:40 - History of Present Illness Initial comments: This is a 66-year-old female with a history of chronic atrial fibrillation and multiple medical problems was brought from a jail after she was found have a potassium 6.4. She complains some visual disturbances and confusion she still feels somewhat confused with the visual problems have changed back to normal. She does have morbid obesity. No history kidney disease her creatinine was also noted an elevated. (Bereket Torres) - Related Data Home Medications Medication Instructions Recorded Confirmed Albuterol Inhaler [Ventolin Hfa 2 puff INHALATION RT-Q4H PRN 12/19/16 12/25/16 Inhaler] Allopurinol [Zyloprim] 300 mg PO DAILY 12/19/16 12/26/16 Ammonium Lactate Lotion 1 applic TOPICAL TID 12/19/16 12/25/16 [Lac-Hydrin 12% Lotion] Cholecalciferol [Vitamin D3] 2,000 unit PO DAILY 12/19/16 12/25/16 Ferrous Sulfate [Iron (65 MG 325 mg PO DAILY 12/19/16 12/25/16 Elemental)] Folic Acid 1 mg PO DAILY 12/19/16 12/25/16 Furosemide [Lasix] 40 mg PO TID 12/19/16 12/26/16 Ipratropium-Albuterol Nebulize 3 ml INHALATION RT-Q6H 12/19/16 12/25/16 [Duoneb 0.5 mg-3 mg/3 ml Soln] Potassium Chloride [Klor-Con 20] 20 meq PO BID 12/19/16 12/25/16 Acetaminophen Tab [Tylenol Tab] 650 mg PO Q4H PRN 12/25/16 12/25/16 Bisacodyl 10 mg RECTAL DAILY PRN 12/25/16 12/25/16 Caldesene Powder 1 applicate TOPICAL DAILY 12/25/16 12/26/16 Magnesium Hydroxide [Milk of 400 mg PO DAILY PRN 12/25/16 12/25/16 Magnesia] Previous Rx's Medication Instructions Recorded Carvedilol [Coreg*] 25 mg PO BID-W/MEALS tab 12/22/16 Cefuroxime [Ceftin] 250 mg PO BID #6 tab 12/22/16 Isosorbide Mononitrate ER [Imdur] 30 mg PO DAILY tab.er.24h 12/22/16 hydrALAZINE HCL [Apresoline] 25 mg PO TID tab 12/22/16 Allergies Allergy/AdvReac Type Severity Reaction Status Date / Time No Known Allergies Allergy Verified 12/30/16 06:52 Review of Systems ROS Other: All systems not noted in ROS Statement are negative. <Bereket Torres - Last Filed: 12/30/16 06:49> ROS Other: All systems not noted in ROS Statement are negative. <Usman Sunshine - Last Filed: 12/30/16 09:32> ROS Statement: Those systems with pertinent positive or pertinent negative responses have been documented in the HPI. Past Medical History Past Medical History: Atrial Fibrillation, Asthma, Heart Failure, Hypertension, Osteoarthritis (OA), Pneumonia, Sleep Apnea/CPAP/BIPAP Additional Past Medical History / Comment(s): BRUNILDA with CPAP, gout bilateral legs /feet, arthritis multiple joints, sinus problems, past left lower leg cellulitis and wound, UTIs. History of Any Multi-Drug Resistant Organisms: None Reported Past Surgical History: Section, Ear Surgery Additional Past Surgical History / Comment(s): Debridement bilateral pedal toenails, colonoscopy-normal, L ear benign tumor removed, x 2. pt currently resides at [facility] Past Anesthesia/Blood Transfusion Reactions: No Reported Reaction Past Psychological History: No Psychological Hx Reported Additional Psychological History / Comment(s): Pt lives at [facility] on the second floor. She uses a walker to ambulate. She no longer drives, she uses transportation provided by [employer] on [address]. Smoking Status: Former smoker Past Alcohol Use History: Rare Additional Past Alcohol Use History / Comment(s): Pt states she started smoking in 1970 and quit in 2002 Past Drug Use History: None Reported - Past Family History Mother Family Medical History: Cancer Additional Family Medical History / Comment(s): Mother of colon cancer at the age of 54 yrs. Father Family Medical History: Myocardial Infarction ([place]) Additional Family Medical History / Comment(s): Father of a massive [place] at the age of 60 yrs. <BrianBereket - Last Filed: 12/30/16 06:49> General Exam Limitations: physical limitation General appearance: alert, in no apparent distress Head exam: Present: atraumatic, normocephalic, normal inspection Eye exam: Present: normal appearance, PERRL, EOMI. Absent: scleral icterus, conjunctival injection, periorbital swelling ENT exam: Present: normal exam, mucous membranes moist Neck exam: Present: normal inspection. Absent: tenderness, meningismus, lymphadenopathy Respiratory exam: Present: decreased breath sounds. Absent: respiratory distress, wheezes, rales, rhonchi, stridor Cardiovascular Exam: Present: regular rate, normal rhythm, normal heart sounds. Absent: systolic murmur, diastolic murmur, rubs, gallop, clicks GI/Abdominal exam: Present: soft, normal bowel sounds, other (Obese abdomen). Absent: distended, tenderness, guarding, rebound, rigid Rectal exam: Present: deferred Extremities exam: Present: full ROM, normal capillary refill, pedal edema, other (Stasis dermatitis). Absent: tenderness, joint swelling, calf tenderness Back exam: Present: normal inspection Neurological exam: Present: alert, oriented X3, CN II-XII intact Psychiatric exam: Present: normal affect, normal mood Skin exam: Present: warm, dry, intact. Absent: rash <Bereket Torres - Last Filed: 12/30/16 06:49> <Usman Sunshine - Last Filed: 12/30/16 09:32> - General Exam Comments Initial Comments: This is a well-developed morbidly obese female she is awake alert oriented 3 ( Bereket Torres) Course <Bereket Torres - Last Filed: 12/30/16 06:49> <Usman Sunshine - Last Filed: 12/30/16 09:32> Vital Signs 12/30/16 12/30/16 12/30/16 06:49 07:52 08:00 Temperature 95.5 F L Pulse Rate 60 67 57 L Respiratory 18 14 14 Rate Blood Pressure 134/79 132/73 156/69 O2 Sat by Pulse 100 100 Oximetry 12/30/16 09:00 Temperature 97 F L Pulse Rate 57 L Respiratory 14 Rate Blood Pressure 139/70 O2 Sat by Pulse 99 Oximetry - Reevaluation(s) Reevaluation #1: 12/30/16 06:53 The patient will be endorsed to Dr. Sunshine who will make the final disposition. ( Bereket Torres) EKG Findings - EKG Results: EKG: interpreted by ERMD, sinus rhythm (Irregular 69. Interval once 96 QRS duration 96 QT/QTC of 406/435 nonspecific T-wave changes) <Bereket Torres - Last Filed: 12/30/16 06:49> Medical Decision Making <Bereket Torres - Last Filed: 12/30/16 06:49> - Lab Data Result diagrams: 12/30/16 07:30 12/30/16 08:12 <Usman Sunshine - Last Filed: 12/30/16 09:32> - Medical Decision Making Patient's potassium was elevated psychiatric the patient Kayexalate, calcium chloride, D50, sodium bicarb, and insulin IV. I spoke with Dr. Bell I admitted the patient I wrote admitting orders and consult the urology (Usman Sunshine) - Lab Data Lab Results 12/30/16 12/30/16 12/30/16 Range/Units 07:30 07:32 08:09 WBC 3.6 L (3.8-10.6) k/uL RBC 4.22 (3.80-5.40) m/uL Hgb 11.1 L (11.4-16.0) gm/dL Hct 39.9 (34.0-46.0) % MCV 94.5 (80.0-100.0) fL MCH 26.4 (25.0-35.0) pg MCHC 27.9 L (31.0-37.0) g/dL RDW 17.5 H (11.5-15.5) % Plt Count 89 L (150-450) k/uL Neutrophils % 72 % Lymphocytes % 16 % Monocytes % 9 % Eosinophils % 1 % Basophils % 0 % Neutrophils # 2.6 (1.3-7.7) k/uL Lymphocytes # 0.6 L (1.0-4.8) k/uL Monocytes # 0.3 (0-1.0) k/uL Eosinophils # 0.0 (0-0.7) k/uL Basophils # 0.0 (0-0.2) k/uL Hypochromasia Marked Anisocytosis Slight PT (9.0-12.0) sec INR (<1.1) APTT (22.0-30.0) sec Sodium (137-145) mmol/L Potassium (3.5-5.1) mmol/L Chloride (98-107) mmol/L Carbon Dioxide (22-30) mmol/L Anion Gap mmol/L BUN (7-17) mg/dL Creatinine (0.52-1.04) mg/dL Est GFR (MDRD) Af Amer (>60 ml/min/1.73 sqM) Est GFR (MDRD) Non-Af (>60 ml/min/1.73 sqM) Glucose (74-99) mg/dL POC Glucose (mg/dL) 81 (75-99) mg/dL POC Glu Medical Scientist ID Milagros Barbour Calcium (8.4-10.2) mg/dL Magnesium (1.6-2.3) mg/dL Total Bilirubin (0.2-1.3) mg/dL AST (14-36) U/L ALT (9-52) U/L Alkaline Phosphatase (38-126) U/L Ammonia (<30) umol/L Total Creatine Kinase (30-135) U/L CK-MB (CK-2) (0.0-2.4) ng/mL CK-MB (CK-2) Rel Index Troponin I (0.000-0.034) ng/mL Total Protein (6.3-8.2) g/dL Albumin (3.5-5.0) g/dL TSH (0.465-4.680) mIU/L Urine Color Yellow Urine Appearance Clear (Clear) Urine pH 5.0 (5.0-8.0) Ur Specific Boyers 1.006 (1.001-1.035) Urine Protein Negative (Negative) Urine Glucose (UA) Negative (Negative) Urine Ketones Negative (Negative) Urine Blood Trace H (Negative) Urine Nitrate Negative (Negative) Urine Bilirubin Negative (Negative) Urine Urobilinogen <2.0 (<2.0) mg/dL Ur Leukocyte Esterase Negative (Negative) Urine RBC 11 H (0-5) /hpf Urine WBC 2 (0-5) /hpf Ur Squamous Epith Cells <1 (0-4) /hpf Urine Bacteria Rare H (None) /hpf Hyaline Casts 1 (0-2) /lpf Urine Mucus Rare H (None) /hpf Urine Opiates Screen Not Detected (NotDetected) Ur Oxycodone Screen Not Detected (NotDetected) Urine Methadone Screen Not Detected (NotDetected) Ur Propoxyphene Screen Not Detected (NotDetected) Ur Barbiturates Screen Not Detected (NotDetected) U Tricyclic Antidepress Not Detected (NotDetected) Ur Phencyclidine Scrn Not Detected (NotDetected) Ur Amphetamines Screen Not Detected (NotDetected) U Methamphetamines Scrn Not Detected (NotDetected) U Benzodiazepines Scrn Not Detected (NotDetected) Urine Cocaine Screen Not Detected (NotDetected) U Marijuana (THC) Screen Not Detected (NotDetected) 12/30/16 12/30/16 12/30/16 Range/Units 08:12 08:12 08:12 WBC (3.8-10.6) k/uL RBC (3.80-5.40) m/uL Hgb (11.4-16.0) gm/dL Hct (34.0-46.0) % MCV (80.0-100.0) fL MCH (25.0-35.0) pg MCHC (31.0-37.0) g/dL RDW (11.5-15.5) % Plt Count (150-450) k/uL Neutrophils % % Lymphocytes % % Monocytes % % Eosinophils % % Basophils % % Neutrophils # (1.3-7.7) k/uL Lymphocytes # (1.0-4.8) k/uL Monocytes # (0-1.0) k/uL Eosinophils # (0-0.7) k/uL Basophils # (0-0.2) k/uL Hypochromasia Anisocytosis PT (9.0-12.0) sec INR (<1.1) APTT (22.0-30.0) sec Sodium 143 (137-145) mmol/L Potassium 6.5 H* (3.5-5.1) mmol/L Chloride 101 (98-107) mmol/L Carbon Dioxide 32 H (22-30) mmol/L Anion Gap 10 mmol/L BUN 48 H (7-17) mg/dL Creatinine 2.33 H (0.52-1.04) mg/dL Est GFR (MDRD) Af Amer 25 (>60 ml/min/1.73 sqM) Est GFR (MDRD) Non-Af 21 (>60 ml/min/1.73 sqM) Glucose 93 (74-99) mg/dL POC Glucose (mg/dL) (75-99) mg/dL POC Glu Medical Scientist ID Calcium 9.8 (8.4-10.2) mg/dL Magnesium 2.3 (1.6-2.3) mg/dL Total Bilirubin 0.7 (0.2-1.3) mg/dL AST 39 H (14-36) U/L ALT 64 H (9-52) U/L Alkaline Phosphatase 112 (38-126) U/L Ammonia 28 (<30) umol/L Total Creatine Kinase <20 L (30-135) U/L CK-MB (CK-2) 1.0 (0.0-2.4) ng/mL CK-MB (CK-2) Rel Index 0.0 Troponin I <0.012 (0.000-0.034) ng/mL Total Protein 6.9 (6.3-8.2) g/dL Albumin 3.4 L (3.5-5.0) g/dL TSH 5.410 H (0.465-4.680) mIU/L Urine Color Urine Appearance (Clear) Urine pH (5.0-8.0) Ur Specific Boy[place] (1.001-1.035) Urine Protein (Negative) Urine Glucose (UA) (Negative) Urine Ketones (Negative) Urine Blood (Negative) Urine Nitrate (Negative) Urine Bilirubin (Negative) Urine Urobilinogen (<2.0) mg/dL Ur Leukocyte Esterase (Negative) Urine RBC (0-5) /hpf Urine WBC (0-5) /hpf Ur Squamous Epith Cells (0-4) /hpf Urine Bacteria (None) /hpf Hyaline Casts (0-2) /lpf Urine Mucus (None) /hpf Urine Opiates Screen (NotDetected) Ur Oxycodone Screen (NotDetected) Urine Methadone Screen (NotDetected) Ur Propoxyphene Screen (NotDetected) Ur Barbiturates Screen (NotDetected) U Tricyclic Antidepress (NotDetected) Ur Phencyclidine Scrn (NotDetected) Ur Amphetamines Screen (NotDetected) U Methamphetamines Scrn (NotDetected) U Benzodiazepines Scrn (NotDetected) Urine Cocaine Screen (NotDetected) U Marijuana (THC) Screen (NotDetected) 12/30/16 Range/Units 08:21 WBC (3.8-10.6) k/uL RBC (3.80-5.40) m/uL Hgb (11.4-16.0) gm/dL Hct (34.0-46.0) % MCV (80.0-100.0) fL MCH (25.0-35.0) pg MCHC (31.0-37.0) g/dL RDW (11.5-15.5) % Plt Count (150-450) k/uL Neutrophils % % Lymphocytes % % Monocytes % % Eosinophils % % Basophils % % Neutrophils # (1.3-7.7) k/uL Lymphocytes # (1.0-4.8) k/uL Monocytes # (0-1.0) k/uL Eosinophils # (0-0.7) k/uL Basophils # (0-0.2) k/uL Hypochromasia Anisocytosis PT 12.9 H (9.0-12.0) sec INR 1.3 (<1.1) APTT 27.5 (22.0-30.0) sec Sodium (137-145) mmol/L Potassium (3.5-5.1) mmol/L Chloride (98-107) mmol/L Carbon Dioxide (22-30) mmol/L Anion Gap mmol/L BUN (7-17) mg/dL Creatinine (0.52-1.04) mg/dL Est GFR (MDRD) Af Amer (>60 ml/min/1.73 sqM) Est GFR (MDRD) Non-Af (>60 ml/min/1.73 sqM) Glucose (74-99) mg/dL POC Glucose (mg/dL) (75-99) mg/dL POC Glu Medical Scientist ID Calcium (8.4-10.2) mg/dL Magnesium (1.6-2.3) mg/dL Total Bilirubin (0.2-1.3) mg/dL AST (14-36) U/L ALT (9-52) U/L Alkaline Phosphatase (38-126) U/L Ammonia (<30) umol/L Total Creatine Kinase (30-135) U/L CK-MB (CK-2) (0.0-2.4) ng/mL CK-MB (CK-2) Rel Index Troponin I (0.000-0.034) ng/mL Total Protein (6.3-8.2) g/dL Albumin (3.5-5.0) g/dL TSH (0.465-4.680) mIU/L Urine Color Urine Appearance (Clear) Urine pH (5.0-8.0) Ur Specific [place] (1.001-1.035) Urine Protein (Negative) Urine Glucose (UA) (Negative) Urine Ketones (Negative) Urine Blood (Negative) Urine Nitrate (Negative) Urine Bilirubin (Negative) Urine Urobilinogen (<2.0) mg/dL Ur Leukocyte Esterase (Negative) Urine RBC (0-5) /hpf Urine WBC (0-5) /hpf Ur Squamous Epith Cells (0-4) /hpf Urine Bacteria (None) /hpf Hyaline Casts (0-2) /lpf Urine Mucus (None) /hpf Urine Opiates Screen (NotDetected) Ur Oxycodone Screen (NotDetected) Urine Methadone Screen (NotDetected) Ur Propoxyphene Screen (NotDetected) Ur Barbiturates Screen (NotDetected) U Tricyclic Antidepress (NotDetected) Ur Phencyclidine Scrn (NotDetected) Ur Amphetamines Screen (NotDetected) U Methamphetamines Scrn (NotDetected) U Benzodiazepines Scrn (NotDetected) Urine Cocaine Screen (NotDetected) U Marijuana (THC) Screen (NotDetected) Critical Care Time Critical Care Time: Yes Total Critical Care Time: 35 <Usman Sunshine - Last Filed: 12/30/16 09:32> Disposition <Bereket Torres - Last Filed: 12/30/16 06:49> Time of Disposition: 09:10 <Usman Sunshine - Last Filed: 12/30/16 09:32> Clinical Impression: Hyperkalemia, Acute renal failure, Altered mental status Disposition: ADMITTED IP TO THIS HOSP
[2016-12-30 07:44] LABS: Glucose,Whole Blood 81 mg/dL (75-99)
[2016-12-30 07:58] LABS: Anisocytosis Slight; Basophils % (A) 0 %; CH 26.5; CHCM 28.3; Eosinophils % (A) 1 %; HCT 39.9 % (34.0-46.0); HDW 3.13; HGB 11.1 gm/dL (11.4-16.0); Hypochromasia Marked; Luc # (Auto) 0.06; Luc % (Auto) 2; Lymphocytes # (A) 0.6 k/uL (1.0-4.8); Lymphocytes % (A) 16 %; MCH 26.4 pg (25.0-35.0); MCV 94.5 fL (80.0-100.0); Mean Platelet Volume 10.3; Monocytes # (A) 0.3 k/uL (0-1.0); Monocytes % (A) 9 %; Neutrophils # (A) 2.6 k/uL (1.3-7.7); Neutrophils % (A) 72 %; RBC 4.22 m/uL (3.80-5.40); RDW 17.5 % (11.5-15.5); WBC 3.6 k/uL (3.8-10.6); WBC (Perox) 3.72
[2016-12-30 08:00] LABS: MCHC 27.9 g/dL (31.0-37.0)
[2016-12-30 08:47] LABS: Calcium 9.8 mg/dL (8.4-10.2); Magnesium 2.3 mg/dL (1.6-2.3); Total Bilirubin 0.7 mg/dL (0.2-1.3); Total Protein 6.9 g/dL (6.3-8.2)
[2016-12-30 08:49] LABS: INR 1.3 (<1.1); Partial Thromboplastin Time 27.5 sec (22.0-30.0); Prothrombin Time 12.9 sec (9.0-12.0)
[2016-12-30 08:49] LABS: Appearance,Urine Clear (Clear); Bacteria,Urine Rare /hpf; Bilirubin,Urine Negative (Negative); Glucose,Urine (UA) Negative (Negative); Ketones,Urine Negative (Negative); Leukocyte Esterase,Urine Negative (Negative); Mucus,Urine Rare /hpf; Nitrite,Urine Negative (Negative); Particle Count 1248; Protein,Urine Negative (Negative); RBC,Urine 11 /hpf (0-5); Specific Gravity,Urine 1.006 (1.001-1.035); Squamous Epithelial Cell,Urine <1 /hpf (0-4); UA Billing (MACRO vs. MICRO) MICRO; Urobilinogen,Urine <2.0 mg/dL (<2.0); WBC,Urine 2 /hpf (0-5)
[2016-12-30 08:50] LABS: Potassium 6.5 mmol/L (3.5-5.1)
--- NOTE | 2016-12-30 08:51 | CT ---
EXAMINATION TYPE: CT brain wo con DATE OF EXAM: 12/30/2016 8:42 AM COMPARISON: 12/19/2016 INDICATION: Confusion DLP: 1018.6 mGycm, Automated exposure control for dose reduction was used. CONTRAST: None CT of the brain is performed utilizing 3 mm thick sections through the posterior fossa and 3 mm thick sections through the remaining calvarium. Study is performed within 24 hours of arrival to the hosp [facility]. No abnormal hyperdensity is present to suggest an acute intracranial hemorrhage. No mass lesion is evident. No acute infarcts are evident. Ventricles and sulci are appropriate for the patient age. There is poor visualization of the maharaj-wh ite matter interface. Correlate for anoxic injury. Small retention cyst is within the right maxillary sinus. Remaining paranasal sinuses and mastoid air cells are clear. There is hyperostosis frontalis internus, normal variant IMPRESSIONS: 1. The maharaj-white interface is not well defined on the current examination which can be associated with anoxic injury. 2. Focal abnormality is not identified.
--- NOTE | 2016-12-30 08:53 | XR ---
EXAMINATION TYPE: XR chest 2V DATE OF EXAM: 12/30/2016 8:45 AM COMPARISON: 12/19/2016 INDICATION: Altered mental status TECHNIQUE: Single frontal view of the chest is obtained. FINDINGS: The heart size is borderline prominent.. The pulmonary vasculature is normal. Posterior pleural effusion is present likely on the right. This is developing IMPRESSION: 1. Developing small to moderate sized right posterior pleural effusion
[2016-12-30 08:58] LABS: Creatine Kinase <20 U/L (30-135)
[2016-12-30] MEDS ORDERED: CALCIUM CHLORIDE 100 MG/ML 10 ML SYRINGE IVP STA (09:03)
[2016-12-30] MEDS ORDERED: SODIUM BICARB 8.4% 50 ML SYR (1 MEQ/ML) IV STA (09:05)
[2016-12-30] MEDS ORDERED: DEXTROSE 50%-WATER 50 ML SYRINGE IVP STA ×2 (09:05→16:41)
[2016-12-30] MEDS ORDERED: INSULIN REGULAR 100 UNIT/ML VIAL IV ONE ×2 (09:05→16:40)
[2016-12-30] MEDS ORDERED: SODIUM POLYSTYRENE SULFONATE 15 GM/60 ML BOTTLE PO STA (09:05)
[2016-12-30 09:12] LABS: Troponin I <0.012 ng/mL (0.000-0.034)
--- NOTE | 2016-12-30 10:37 | P.NPCON ---
History of Present Illness - Reason for Consult acute renal failure - History of Present Illness Reason for consultation: Acute kidney injury and hyperkalemia History of present illness: Patient is a 66-year-old female seen in renal consultation for acute kidney injury and hyperkalemia. Patient has chronic kidney disease stage III secondary to nephrosclerosis with baseline creatinine near 1.3. Patient resides at [facility] and presented due to abnormal labs. She was noted to have a potassium level of 6.4 and subsequently sent to the hospital for further care. In the emergency room she did receive IV insulin, IV sodium bicarbonate as well as calcium chloride and Kayexalate. She is incontinent. In her home medications, I do see that she was taking potassium supplements. Denies vomiting or diarrhea. Appetite has been diminished. Denies chest pain or shortness of breath. Hemodynamically she's been stable. She is currently receiving IV fluids. Vital signs are stable. General: The patient appeared well nourished and normally developed. HEENT: Head exam is unremarkable. Neck is without jugular venous distension. LUNGS: Lungs are clear to auscultation and percussion. Breath sounds decreased. HEART: Rate and Rhythm are regular. First and second heart sounds normal. No murmurs, rubs or gallops. ABDOMEN: Abdominal exam reveals normal bowel sounds. Non-tender and non- distended. No evidence of peritonitis. Morbidly obese. EXTREMITITES: Chronic venous stasis changes. Past Medical History Past Medical History: Atrial Fibrillation, Asthma, Heart Failure, Hypertension, Osteoarthritis (OA), Pneumonia, Sleep Apnea/CPAP/BIPAP Additional Past Medical History / Comment(s): BRUNILDA with CPAP, gout bilateral legs /feet, arthritis multiple joints, sinus problems, past left lower leg cellulitis and wound, UTIs. History of Any Multi-Drug Resistant Organisms: None Reported Past Surgical History: Section, Ear Surgery Additional Past Surgical History / Comment(s): Debridement bilateral pedal toenails, colonoscopy-normal, L ear benign tumor removed, x 2. pt currently resides at [facility] Past Anesthesia/Blood Transfusion Reactions: No Reported Reaction Past Psychological History: No Psychological Hx Reported Additional Psychological History / Comment(s): Pt lives at [facility] on the second floor. She uses a walker to ambulate. She no longer drives, she uses transportation provided by [employer]. Smoking Status: Former smoker Past Alcohol Use History: Rare Additional Past Alcohol Use History / Comment(s): Pt states she started smoking in 1970 and quit in 2002 Past Drug Use History: None Reported - Past Family History Mother Family Medical History: Cancer Additional Family Medical History / Comment(s): Mother of colon cancer at the age of 54 yrs. Father Family Medical History: Myocardial Infarction ([place]) Additional Family Medical History / Comment(s): Father of a massive [place] at the age of 60 yrs. Medications and Allergies Home Medications Medication Instructions Recorded Confirmed Type Albuterol Inhaler [Ventolin Hfa 2 puff INHALATION RT-Q4H PRN 12/19/16 12/25/16 History Inhaler] Allopurinol [Zyloprim] 300 mg PO DAILY 12/19/16 12/26/16 History Ammonium Lactate Lotion 1 applic TOPICAL TID 12/19/16 12/25/16 History [Lac-Hydrin 12% Lotion] Cholecalciferol [Vitamin D3] 2,000 unit PO DAILY 12/19/16 12/25/16 History Ferrous Sulfate [Iron (65 MG 325 mg PO DAILY 12/19/16 12/25/16 History Elemental)] Folic Acid 1 mg PO DAILY 12/19/16 12/25/16 History Furosemide [Lasix] 40 mg PO TID 12/19/16 12/26/16 History Ipratropium-Albuterol Nebulize 3 ml INHALATION RT-Q6H 12/19/16 12/25/16 History [Duoneb 0.5 mg-3 mg/3 ml Soln] Potassium Chloride [Klor-Con 20] 20 meq PO BID 12/19/16 12/25/16 History Acetaminophen Tab [Tylenol Tab] 650 mg PO Q4H PRN 12/25/16 12/25/16 History Bisacodyl 10 mg RECTAL DAILY PRN 12/25/16 12/25/16 History Caldesene Powder 1 applicate TOPICAL DAILY 12/25/16 12/26/16 History Magnesium Hydroxide [Milk of 400 mg PO DAILY PRN 12/25/16 12/25/16 History Magnesia] Allergies Allergy/AdvReac Type Severity Reaction Status Date / Time No Known Allergies Allergy Verified 12/30/16 06:52 Results - Lab Results Most recent lab results Calcium 9.8 mg/dL (8.4-10.2) 12/30/16 08:12 Magnesium 2.3 mg/dL (1.6-2.3) 12/30/16 08:12 12/30/16 07:30 12/30/16 08:12 Assessment and Plan Plan: Assessment: #1. Nonoliguric acute kidney injury mostly prerenal secondary to diuretics and poor oral intake. Creatinine up to 2.3 today. #2. Hyperkalemia secondary to acute kidney injury and potassium supplementation. No evidence of acidosis. #3. Chronic kidney disease stage III with baseline creatinine near 1.3 secondary to nephrosclerosis. #4. Morbid obesity. #5. Hypertension with chronic kidney disease. Controlled. Plan: Maintain normal saline to be run at 100 mL an hour for the next 24 hours. Repeat potassium level at 1 PM today. He was medically treated in the emergency room with Kayexalate, IV insulin as well as IV sodium bicarbonate. Arteaga catheter placement due to retention and strict I's and O's. Avoid nephrotoxic agents and hypotensive episodes. Diuretics held for now. Check renal ultrasound. Thank you for the consultation. I will continue to follow the patient with you during her hospital stay.
--- NOTE | 2016-12-30 12:00 | P.HPIM ---
History of Present Illness H&P Date: 12/30/16 Chief Complaint: Mental status change Is a 66-year-old female with history of congestive heart failure EF is 40-45% and pulmonary hypertension comes into the hospital from [facility] as patient was noted to have change in mental status over the last few days. Patient apparently has had poor oral intake. Patient was recently in the hospital after sustaining a fall patient was noted to have low hemoglobin thereafter underwent endometrial biopsy. Patient apparently has not had significant oral intake in the last few days creatinine has jumped up from baseline of 1-2.36 on this admission. During my examination patient is not arousable opens her eyes to painful similar. The information is retrieved from the chart review. Patient has a Arteaga catheter inserted the same. Diuretics were held. Patient is currently maintained on 2 L of supplemental oxygen. At baseline patient is able to ambulate with some difficulty however is dependent on help for all ADLs. Review of Systems ROS unobtainable: due to mental status Past Medical History Past Medical History: Atrial Fibrillation, Asthma, Heart Failure, Hypertension, Osteoarthritis (OA), Pneumonia, Sleep Apnea/CPAP/BIPAP Additional Past Medical History / Comment(s): BRUNILDA with CPAP, gout bilateral legs /feet, arthritis multiple joints, sinus problems, past left lower leg cellulitis and wound, UTIs. History of Any Multi-Drug Resistant Organisms: None Reported Past Surgical History: Section, Ear Surgery Additional Past Surgical History / Comment(s): Debridement bilateral pedal toenails, colonoscopy-normal, L ear benign tumor removed, x 2. pt currently resides at [facility] Past Anesthesia/Blood Transfusion Reactions: No Reported Reaction Past Psychological History: No Psychological Hx Reported Additional Psychological History / Comment(s): Pt lives at [facility] on the second floor. She uses a walker to ambulate. She no longer drives, she uses transportation provided by [employer] on [address]. Smoking Status: Former smoker Past Alcohol Use History: Rare Additional Past Alcohol Use History / Comment(s): Pt states she started smoking in 1970 and quit in 2002 Past Drug Use History: None Reported - Past Family History Mother Family Medical History: Cancer Additional Family Medical History / Comment(s): Mother of colon cancer at the age of 54 yrs. Father Family Medical History: Myocardial Infarction ([place]) Additional Family Medical History / Comment(s): Father of a massive [place] at the age of 60 yrs. Medications and Allergies Home Medications Medication Instructions Recorded Confirmed Type Albuterol Inhaler [Ventolin Hfa 2 puff INHALATION RT-Q4H PRN 12/19/16 12/30/16 History Inhaler] Allopurinol [Zyloprim] 300 mg PO DAILY 12/19/16 12/30/16 History Ammonium Lactate Lotion 1 applic TOPICAL TID 12/19/16 12/30/16 History [Lac-Hydrin 12% Lotion] Ferrous Sulfate [Iron (65 MG 325 mg PO DAILY 12/19/16 12/30/16 History Elemental)] Folic Acid 1 mg PO DAILY 12/19/16 12/30/16 History Furosemide [Lasix] 40 mg PO TID 12/19/16 12/30/16 History Ipratropium-Albuterol Nebulize 3 ml INHALATION RT-Q6H 12/19/16 12/30/16 History [Duoneb 0.5 mg-3 mg/3 ml Soln] Potassium Chloride [Klor-Con 20] 20 meq PO BID 12/19/16 12/30/16 History Acetaminophen Tab [Tylenol Tab] 650 mg PO Q4H PRN 12/25/16 12/30/16 History Bisacodyl 10 mg RECTAL DAILY PRN 12/25/16 12/30/16 History Caldesene Powder 1 applicate TOPICAL BID 12/25/16 12/30/16 History Magnesium Hydroxide [Milk of 2,400 mg PO DAILY PRN 12/25/16 12/30/16 History Magnesia] Cholecalciferol [Vitamin D3] 2,000 unit PO DAILY 12/30/16 12/30/16 History Menthol/Zinc Oxide [Calmoseptine 1 applic TOPICAL BID 12/30/16 12/30/16 History Ointment] Na Phos,M-B/Na Phos,Di-Ba [Fleet 133 ml RECTAL DAILY PRN 12/30/16 12/30/16 History Adult] Allergies Allergy/AdvReac Type Severity Reaction Status Date / Time No Known Allergies Allergy Verified 12/30/16 11:16 Physical Exam Gen. appearance patient is lethargic Neck is supple no JVD. Heart S1-S2 heard no murmurs appreciated Lungs diminished breath sounds however exam is limited due to body habitus Abdomen is obese soft nontender no organomegaly Lower extremities chronic skin changes trace edema is appreciated that is nonpitting in nature Neurologically patient is lethargic. Results CBC & Chem 7: 12/30/16 07:30 12/30/16 08:12 Assessment and Plan Plan: 1 acute metabolic encephalopathy #2 history of COPD #3 nonoliguric acute kidney injury with underlying ATN likely secondary to medications and poor oral intake #4 history of congestive heart failure that is compensated EF of 40-45% #5 pulmonary hypertension #6 obstructive sleep apnea there is some question of compliance #7 morbid obesity #8 anemia #9 hyperkalemia #10 hypertension Plan We'll obtain a stat ABG. Patient may benefit from a noninvasive of ventilation. Hold off on all diuretics. Nephrology has evaluated the patient. Strict I's and O's. A renal ultrasound will also be done. Rest of the labs were reviewed. A repeat potassium should be done. Patient is status post Kayexalate at this time. Patient is critically ill and this was also discussed with the patient's family.
[2016-12-30 12:56] LABS: ABG Base Excess 8.2 mmol/L; ABG HCO3 34 mmol/L (21-25); ABG PCO2 69 mmHg (35-45); ABG PH 7.32 (7.35-7.45); ABG PO2 131 mmHg (83-108); ABG TCO2 36 mmol/L (19-24)
--- NOTE | 2016-12-30 13:12 | US ---
EXAMINATION TYPE: US kidneys/renal and bladder DATE OF EXAM: 12/30/2016 12:26 PM COMPARISON: NONE CLINICAL HISTORY: christiano. EXAM MEASUREMENTS: Right Kidney: 9.2 x 4.6 x 4.4 cm Left Kidney: 9.6 x 5.3 x 5.0 cm TECHNOLOGIST IMPRESSION: Limited examination due to patient body habitus, patient altered mental sta tus thus unable to hold breath or roll, and overlying bowel gas present. Right Kidney: Appears wnl as visualized Left Kidney: Obscured by overlying bowel gas, portions visualized appear wnl Bladder: Compressed around Hughes Catheter Bilateral Jets seen: No There is no evidence for hydronephrosis at this point in time. No nephrolithiasis is seen. No janet s are identified. The urinary bladder is not seen, decompressed around hughes catheter. IMPRESSION: Normal bilateral kidneys. Exam is limited due to patient body habitus
[2016-12-30] MEDS: ALBUTEROL NEBULIZED 2.5 MG/3 ML INHALATION PRN (15:42)
[2016-12-30] MEDS ORDERED: ACETAMINOPHEN TAB 325 MG TAB PO PRN (16:13)
[2016-12-30] MEDS: hydrALAZINE HCL 25 MG TAB PO SCH ×2 (17:33→22:14)
[2016-12-30] MEDS: CARVEDILOL 12.5 MG TAB PO SCH (18:27)
--- NOTE | 2016-12-30 18:33 | P.CNNES ---
History of Present Illness Consult date: 12/30/16 Reason for Consult: Patient with altered mental status. History of Present Illness: This patient is a 66-year-old right-handed -Kosovan female who has been residing recently at [facility]. Apparently on the day of admission she was noted by the nursing staff at the [facility] is having a very elevated serum potassium level. Her potassium was noted to be 6.5. For this reason she was transferred to the emergency room at [facility] for further evaluation and treatment. She was subsequently admitted to the hospital. According to the daughter who provided the medical history she has noted over the past 1 week that the patient has been having slurring of her speech. She was noted to have increase weakness and lethargy as well. According to the daughter she had not been given her CPAP machine at night for 4 days prior to her admission. She does have a history of obstructive sleep apnea and does use a CPAP on a regular basis every evening. Due to her change in mental status she was sent for a computed tomography scan of the brain. CAT scan of the brain revealed poor definition of the maharaj-white junction. No evidence of acute stroke or hemorrhage was noted. The daughter also states that over the past one week the patient has been complaining of double vision. This is a new finding according to the daughter. She has been generally weak but in the last week the family has clearly noticed a decline in the patient's overall day-to-day functioning. She has had much better days previously and was much more awake and alert. When questioned in regards to her speech should clearly sounds muffled at times with some dysarthria. According to the daughter she was also having some [facility] The patient has had intermittent lethargy. This may be due to her severe obstructive sleep apnea. She also has a history of congestive heart failure and multiple other medical issues. She was found to have evidence of acute kidney injury and her serum creatinine was elevated at 2.33. There is findings suggesting she likely has some degree of a metabolic encephalopathy due to her acute kidney injury and hyperkalemia. Nephrology has been consult for this patient. She does have chronic kidney disease stage III secondary to nephrosclerosis. According to the daughter she has noted in the past week mental status change associated with her slurred speech and also some difficulty with her vision. As noted she has been complaining of double vision only in this past week. On further evaluation of the patient at bedside she is noted to have some disconjugate eye gaze when looking to the left. This suggests possibility of ocular muscle impairment possibly secondary to stroke. Patient has been treated recently for low hemoglobin. She underwent endometrial biopsy for this condition. The daughter mentions no significant history of stroke for the patient. She is not diabetic. Due to the findings of ocular motility difficulty involving the left eye as well as a slightly abnormal CAT scan of the brain we have recommended the patient undergo an MRI of the brain if possible locally due to her weight she may require a large bore MRI unit. We have discussed this today with the patient's daughter who does work and MRI. We will try to obtain an MRI for further evaluation of possible brainstem ischemia and/or stroke. The patient is resting comfortably. She is slightly lethargic at times. She does have nasal oxygen in place at this time. Apparently when she does get the double vision it is usually a horizontal diplopia. As noted she does have eye gaze deficit in the left eye. We have discussed all of these findings in detail today with the patient's daughter at bedside. We have recommended a complete stroke evaluation for the patient. Her overall prognosis remains guarded. Neurology is now been consulted for further evaluation and recommendations. Review of Systems Constitutional: Denies chills, Denies fever Eyes: denies blurred vision, denies pain Ears, nose, mouth and throat: Denies headache, Denies sore throat Cardiovascular: Denies chest pain, Denies shortness of breath Respiratory: Reports home oxygen, Reports sleep apnea, Denies cough Gastrointestinal: Denies abdominal pain, Denies diarrhea, Denies nausea, Denies vomiting Genitourinary: Denies dysuria, Denies hematuria Musculoskeletal: Denies myalgias Integumentary: Denies pruritus, Denies rash Neurological: Reports change in mentation, Reports change in speech, Reports confusion, Reports double vision, Reports headaches, Reports memory loss, Denies numbness, Denies weakness Psychiatric: Denies anxiety, Denies depression Endocrine: Denies fatigue, Denies weight change Past Medical History Past Medical History: Atrial Fibrillation, Asthma, Heart Failure, Hypertension, Osteoarthritis (OA), Pneumonia, Sleep Apnea/CPAP/BIPAP Additional Past Medical History / Comment(s): BRUNILDA with CPAP, gout bilateral legs /feet, arthritis multiple joints, sinus problems, past left lower leg cellulitis and wound, UTIs. History of Any Multi-Drug Resistant Organisms: None Reported Past Surgical History: Section, Ear Surgery Additional Past Surgical History / Comment(s): Debridement bilateral pedal toenails, colonoscopy-normal, L ear benign tumor removed, x 2. pt currently resides at [facility] Past Anesthesia/Blood Transfusion Reactions: No Reported Reaction Past Psychological History: No Psychological Hx Reported Additional Psychological History / Comment(s): Pt lives at [facility] on the second floor. She uses a walker to ambulate. She no longer drives, she uses transportation provided by [employer]. Smoking Status: Former smoker Past Alcohol Use History: Rare Additional Past Alcohol Use History / Comment(s): Pt states she started smoking in 1970 and quit in 2002 Past Drug Use History: None Reported - Past Family History Mother Family Medical History: Cancer Additional Family Medical History / Comment(s): Mother of colon cancer at the age of 54 yrs. Father Family Medical History: Myocardial Infarction ([place]) Additional Family Medical History / Comment(s): Father of a massive [place] at the age of 60 yrs. Medications and Allergies Home Medications Medication Instructions Recorded Confirmed Type Albuterol Inhaler [Ventolin Hfa 2 puff INHALATION RT-Q4H PRN 12/19/16 12/30/16 History Inhaler] Allopurinol [Zyloprim] 300 mg PO DAILY 12/19/16 12/30/16 History Ammonium Lactate Lotion 1 applic TOPICAL TID 12/19/16 12/30/16 History [Lac-Hydrin 12% Lotion] Ferrous Sulfate [Iron (65 MG 325 mg PO DAILY 12/19/16 12/30/16 History Elemental)] Folic Acid 1 mg PO DAILY 12/19/16 12/30/16 History Furosemide [Lasix] 40 mg PO TID 12/19/16 12/30/16 History Ipratropium-Albuterol Nebulize 3 ml INHALATION RT-Q6H 12/19/16 12/30/16 History [Duoneb 0.5 mg-3 mg/3 ml Soln] Potassium Chloride [Klor-Con 20] 20 meq PO BID 12/19/16 12/30/16 History Acetaminophen Tab [Tylenol Tab] 650 mg PO Q4H PRN 12/25/16 12/30/16 History Bisacodyl 10 mg RECTAL DAILY PRN 12/25/16 12/30/16 History Caldesene Powder 1 applicate TOPICAL BID 12/25/16 12/30/16 History Magnesium Hydroxide [Milk of 2,400 mg PO DAILY PRN 12/25/16 12/30/16 History Magnesia] Cholecalciferol [Vitamin D3] 2,000 unit PO DAILY 12/30/16 12/30/16 History Menthol/Zinc Oxide [Calmoseptine 1 applic TOPICAL BID 12/30/16 12/30/16 History Ointment] Na Phos,M-B/Na Phos,Di-Ba [Fleet 133 ml RECTAL DAILY PRN 12/30/16 12/30/16 History Adult] Allergies Allergy/AdvReac Type Severity Reaction Status Date / Time No Known Allergies Allergy Verified 12/30/16 11:16 Physical Examination - Vital Signs Vital Signs: Vital Signs Temp Pulse Resp BP Pulse Ox 12/30/16 09:31 97.5 F L 54 L 16 124/72 100 Intake and Output 12/29/16 12/30/16 12/30/16 22:59 06:59 14:59 Other: Weight 204.117 kg Patient Weight 12/31/16 06:59 Weight 204.117 kg - Constitutional General appearance: morbidly obese - EENT EENT: PERRL, mucous membranes moist - Respiratory Respiratory: lungs clear, normal breath sounds - Cardiovascular Cardiovascular: regular rate, normal S1, normal S2 Extremities: no peripheral edema bilaterally - Gastrointestinal Gastrointestinal: normoactive bowel sounds - Integumentary Integumentary: normal - Neurologic Cranial nerve examination: PERRL, EOMI, VFF (Patient has evidence of left lateral rectus muscle weakness.), V1/V2/V3 grossly intact, face symmetric, tongue midline, intact gag reflex, intact corneal reflex, normal palatal elevation Speech examination: intact Sensorimotor examination: intact Motor examination - right side: 3/5: biceps, triceps, wrist flexion, wrist extension, security solutions architect, hip flexors, knee extensors, dorsiflexion, toe extension (EHL) , plantarflexion Motor examination - left side: 3/5: biceps, triceps, wrist flexion, wrist extension, security solutions architect, hip flexors, knee extensors, dorsiflexion, toe extension (EHL) , plantarflexion Detailed sensory examination: intact Reflex and gait examination: intact Reflexes: 1+: ankle, bicep, knee, tricep Cerebellar examination: ocular dysmetria - Musculoskeletal Musculoskeletal: no pain - Psychiatric Psychiatric: mood/affect appropriate, cooperative Results - Laboratory Findings CBC and BMP: 12/30/16 07:30 12/30/16 13:07 Abnormal Lab Findings: Abnormal Labs 12/30/16 12:45 ABG pH 7.32 L ABG pCO2 69 H ABG pO2 131 H ABG HCO3 34 H ABG Total CO2 36 H ABG O2 Saturation 99.0 H Assessment and Plan (1) Arterial ischemic stroke, vertebrobasilar, brainstem, acute Status: Acute Code(s): I63.219 - CEREB INFRC DUE TO UNSP OCCLS OR STENOSIS OF UNSP VERTEB ART; I63.22 - CEREBRAL INFRC DUE TO UNSP OCCLS OR STENOSIS OF BASILAR ART (2) Diplopia Status: Acute Code(s): H53.2 - DIPLOPIA (3) Expressive aphasia Status: Acute Code(s): R47.01 - APHASIA (4) Acute renal failure Status: Acute Code(s): N17.9 - ACUTE KIDNEY FAILURE, UNSPECIFIED (5) Morbid obesity Status: Chronic Code(s): E66.01 - MORBID (SEVERE) OBESITY DUE TO EXCESS CALORIES (6) Sleep apnea Status: Chronic Code(s): G47.30 - SLEEP APNEA, UNSPECIFIED Plan: This patient is a 66-year-old female who is being evaluated for altered mental status and diplopia. According to the daughter who provided the medical history today for the past 1 week she has been complaining of slurred speech as well as double vision. Her [facility] and due to the finding today of hyperkalemia she was sent in to the emergency room subsequent admitted to the hospital. The daughter who provided the medical history today at bedside states that for the past week she has noted increasing slurring of her speech. She is also more confused and disoriented. She was complaining of double vision to the daughter for the past week as well. Apparently this was a horizontal diplopia. Her neurological examination today does reveal evidence of ocular dysmetria involving the left eye. There is possible left lateral rectus muscle weakness in the left eye possibly due to brain stem ischemia. Her slurred speech is also noted today on examination. We have recommended patient undergo a complete stroke evaluation to rule out brainstem stroke. Her computed tomography scan of the brain revealed some maharaj white matter differentiation changes. We would recommend an MRI of the brain for further evaluation of possible brainstem stroke as well as further assessment of the maharaj-white junction. All of these findings were reviewed today with the patient's daughter at bedside. All of her questions were answered. We will proceed to obtain an MRI if possible locally due to her weight and girth she may have to go to a open MRI as an outpatient. We have discussed all of these details today with the patient's daughter and the patient. We will proceed with our stroke evaluation for the patient. She does have evidence of mild metabolic encephalopathy secondary to metabolic derangement. Her serum creatinine today is 2.33. Hopefully her mental status will improve as her kidney function improves. The patient does have multiple complex medical issues. We will continue close neurological follow-up for the patient during this admission. Her overall prognosis at this time remains very guarded. We will continue close neurological follow-up for this patient during this admission. Time with Patient: Greater than 30
[2016-12-31 06:21] LABS: Anisocytosis Slight; CH 26.4; CHCM 27.4; HCT 40.5 % (34.0-46.0); HDW 3.04; HGB 11.1 gm/dL (11.4-16.0); Hypochromasia Marked; Large Platelets Flag Slight; MCH 26.7 pg (25.0-35.0); MCV 96.9 fL (80.0-100.0); Macrocytosis Slight; Mean Platelet Volume 10.4; RBC 4.18 m/uL (3.80-5.40); RDW 17.6 % (11.5-15.5); WBC 3.6 k/uL (3.8-10.6); WBC (Perox) 3.93
[2016-12-31 06:35] LABS: Calcium 9.7 mg/dL (8.4-10.2); Magnesium 2.3 mg/dL (1.6-2.3); Total Bilirubin 0.7 mg/dL (0.2-1.3); Total Protein 6.6 g/dL (6.3-8.2)
[2016-12-31 06:36] LABS: MCHC 27.5 g/dL (31.0-37.0)
[2016-12-31 06:38] LABS: Potassium 6.4 mmol/L (3.5-5.1)
[2016-12-31] MEDS ORDERED: SODIUM POLYSTYRENE SULFONATE 15 GM/60 ML BOTTLE PO STA (06:50)
[2016-12-31] MEDS ORDERED: INSULIN REGULAR 100 UNIT/ML VIAL IV ONE (06:51)
[2016-12-31] MEDS ORDERED: SODIUM BICARB 8.4% 50 ML SYR (1 MEQ/ML) IV STA (06:51)
[2016-12-31] MEDS ORDERED: DEXTROSE 50%-WATER 50 ML SYRINGE IVP STA (06:52)
[2016-12-31] MEDS: CARVEDILOL 12.5 MG TAB PO SCH ×2 (07:03→18:31)
[2016-12-31 07:16] LABS: Add Differential Manual Differential
[2016-12-31 07:20] LABS: Manual Review Performed; Nucleated Red Blood Cells 0 /100 WBC (0-0); Target Cells Present; Total Cells Counted 100
[2016-12-31] MEDS: hydrALAZINE HCL 25 MG TAB PO SCH ×3 (08:15→23:10)
--- NOTE | 2016-12-31 08:50 | P.PN ---
Subjective Patient is seen in follow-up for acute kidney injury on chronic kidney disease. Patient has chronic kidney disease stage III secondary to nephrosclerosis with baseline creatinine near 1.3. It was elevated at 2.6 on admission and is improved to 2.2 today. However she remains hyperkalemic with a potassium level of 6.4. She was sent from extended care facility due to hyperkalemia. She has a Arteaga catheter in place. Urine output overnight was 600 mL. Denies chest pain or shortness of breath. Appetite has been good. Vital signs are stable. General: The patient appeared well nourished and normally developed. HEENT: Head exam is unremarkable. Neck is without jugular venous distension. LUNGS: Lungs are clear to auscultation and percussion. Breath sounds decreased. HEART: Rate and Rhythm are regular. First and second heart sounds normal. No murmurs, rubs or gallops. ABDOMEN: Abdominal exam reveals normal bowel sounds. Non-tender and non- distended. No evidence of peritonitis. EXTREMITITES: Trace edema. Chronic venous stasis changes. Objective - Vital Signs Vital signs: Vital Signs Temp 97.6 F 12/31/16 08:00 Pulse 55 L 12/31/16 08:00 Resp 16 12/31/16 08:00 BP 133/70 12/31/16 08:00 Pulse Ox 99 12/31/16 08:00 Intake & Output 12/30/16 12/31/16 12/31/16 18:59 06:59 18:59 Intake Total 120 Output Total 600 Balance -600 120 Weight 204.117 kg Intake: Oral 120 Output: Urine 600 Other: Voiding Method Indwelling Catheter Indwelling Catheter Indwelling Catheter # Voids 1 # Bowel Movements 2 - Labs CBC & Chem 7: 12/31/16 06:00 12/31/16 06:00 Labs: Abnormal Lab Results - Last 24 Hours (Table) 12/30/16 12/30/16 12/31/16 Range/Units 12:45 13:07 06:00 WBC (3.8-10.6) k/uL Hgb (11.4-16.0) gm/dL MCHC (31.0-37.0) g/dL RDW (11.5-15.5) % Plt Count (150-450) k/uL Lymphocytes # (Manual) (1.0-4.8) k/uL ABG pH 7.32 L (7.35-7.45) ABG pCO2 69 H (35-45) mmHg ABG pO2 131 H (83-108) mmHg ABG HCO3 34 H (21-25) mmol/L ABG Total CO2 36 H (19-24) mmol/L ABG O2 Saturation 99.0 H (94-97) % Potassium 5.9 H 6.4 H* (3.5-5.1) mmol/L Carbon Dioxide 35 H (22-30) mmol/L BUN 47 H (7-17) mg/dL Creatinine 2.20 H (0.52-1.04) mg/dL Glucose 70 L (74-99) mg/dL ALT 64 H (9-52) U/L Albumin 3.2 L (3.5-5.0) g/dL 12/31/16 Range/Units 06:00 WBC 3.6 L (3.8-10.6) k/uL Hgb 11.1 L (11.4-16.0) gm/dL MCHC 27.5 L (31.0-37.0) g/dL RDW 17.6 H (11.5-15.5) % Plt Count 86 L (150-450) k/uL Lymphocytes # (Manual) 0.5 L (1.0-4.8) k/uL ABG pH (7.35-7.45) ABG pCO2 (35-45) mmHg ABG pO2 (83-108) mmHg ABG HCO3 (21-25) mmol/L ABG Total CO2 (19-24) mmol/L ABG O2 Saturation (94-97) % Potassium (3.5-5.1) mmol/L Carbon Dioxide (22-30) mmol/L BUN (7-17) mg/dL Creatinine (0.52-1.04) mg/dL Glucose (74-99) mg/dL ALT (9-52) U/L Albumin (3.5-5.0) g/dL Assessment and Plan Plan: Assessment: #1. Nonoliguric acute kidney injury mostly prerenal secondary to diuretics and poor oral intake. Improving. #2. Hyperkalemia secondary to acute kidney injury and potassium supplementation. No evidence of acidosis. #3. Chronic kidney disease stage III with baseline creatinine near 1.3 secondary to nephrosclerosis. Renal ultrasound benign. Recent urinalysis also benign. #4. Morbid obesity. #5. Hypertension with chronic kidney disease. Controlled. Plan: Fluids have been discontinued. She is tolerating oral intake. Repeat potassium level at 2 PM today. It was medically treated this morning with Kayexalate, IV insulin as well as IV sodium bicarbonate. Arteaga catheter placement due to retention and strict I's and O's. Avoid nephrotoxic agents and hypotensive episodes. Diuretics held for now.
--- NOTE | 2016-12-31 08:59 | US ---
EXAMINATION TYPE: US carotid duplex BILAT DATE OF EXAM: 12/31/2016 7:45 AM COMPARISON: NONE CLINICAL HISTORY: Possible brainstem stroke, patient 5'4, 450lbs and unable to move, very technically difficult study.. EXAM MEASUREMENTS: RIGHT: Peak Systolic Velocity (PSV) cm/sec ----- Right CCA: 96.0 ----- Right ICA: 93.9 ----- Right ECA: 64.9 ICA/CCA ratio: 1.0 RIGHT: End Diastole cm/sec ----- Right CCA: 15.1 ----- Right ICA: 29.6 ----- Right ECA: 8.9 LEFT: Peak Systolic Velocity (PSV) cm/sec ----- Left CCA: 90.5 ----- Left ICA: 92.5 ----- Left ECA: 77.1 ICA/CCA ratio: 1.0 LEFT: End Diastole cm/sec ----- Left CCA: 29.9 ----- Left ICA: 41.0 ----- Left ECA: 16.2 VERTEBRALS (direction of flow): Right Vertebral: Antegrade Left Vertebral: Antegrade TECHNOLOGIST IMPRESSION: No significant velocity elevations, no obvious atherosclerotic changes alth ough exam somewhat limited. IMPRESSION: 1. No significant flow-limiting stenosis 2. Mild intimal thickening bilateral common carotid arteries Criteria for Assigning % of Stenosis / Diameter reduction (Estimation based on the indirect measurements of the internal carotid artery velocities (ICA PSV). 1. Normal (no stenosis)=ICA PSV < 125 cm/s: ratio < 2.0: ICA EDV<40 cm/s. 2. Less than 50% stenosis=ICA PSV < 125 cm/s: ratio < 2.0: ICA EDV<40 cm/s. 3. 50 to 69% stenosis=ICA PSV of 125 to 230 cm/s: ration 2.0 ? 4.0: ICA EDV 40-100 cm/s. 4. Greater than 70% stenosis to near occlusion= ICA PSV > 230 cm/s: ratio > 4.0: ICA EDV > 100 cm/s. 5. Near occlusion= ICA PSV velocities may be low or undetectable: variable ratio and ICA EDV. 6. Total occlusion=unable to detect flow.
--- NOTE | 2016-12-31 09:04 | XR ---
EXAMINATION TYPE: XR chest 1V portable DATE OF EXAM: 12/31/2016 7:02 AM COMPARISON: 12/30/2016 INDICATION: Difficulty breathing TECHNIQUE: Single frontal view of the chest is obtained. FINDINGS: The heart size is mildly prominent. The pulmonary vasculature is normal. The lungs are clear. IMPRESSION: 1. No acute pulmonary process.
[2016-12-31] MEDS: ALBUTEROL NEBULIZED 2.5 MG/3 ML INHALATION PRN ×2 (09:06→19:36)
--- NOTE | 2016-12-31 14:44 | P.PN ---
Subjective This patient is a 66-year-old right-handed -[place] female who was transferred for [facility] for evaluation of hyperkalemia. She was treated with Kayexalate yesterday for this condition. She also according to her daughter and other family members had shown changes in mentation with slurred speech and confusion for the past 1 week at the assisted. She did undergo a computed tomography scan of the brain which revealed poor delineation of the maharaj-white junction. There was no evidence of acute stroke or hemorrhage. CAT scan findings was suggesting possibility of anoxic injury. Patient does have a history of obstructive sleep apnea and does use CPAP machine for treatment. Apparently she was not using her CPAP for 4 days at the assisted. We did review the CAT scan results with the daughter and the patient yesterday. We have recommended if possible for the patient to obtain a MRI of the brain. Due to her weight this may be a restriction locally for MRI scanning. We will try to obtain an MRI for further assessment of her current neurological status. Her neurological examination yesterday also revealed her to have slurred speech as well as left ocular muscle weakness. This is suggesting a left lateral rectus palsy. For this reason MRI scanning was recommended to further evaluate for brainstem ischemia and/or stroke. The patient is being treated for hyperkalemia today as well. Her potassium level is 6.4 and she was given Kayexalate as well as IV insulin and sodium bicarbonate. Nephrology is monitoring her condition closely. Her serum creatinine is come down slightly to 2.2 today. Neurologically she is showing no new changes in her neurological exam. She did have a carotid Doppler ultrasound done which revealed no significant carotid artery stenosis. We will continue close neurological follow-up for the patient. Her overall prognosis remains guarded. Objective - Vital Signs Vital signs: Vital Signs Temp 97.6 F 12/31/16 08:00 Pulse 58 L 12/31/16 11:27 Resp 16 12/31/16 08:00 BP 133/70 12/31/16 08:00 Pulse Ox 99 12/31/16 08:00 Intake & Output 12/30/16 12/31/16 12/31/16 18:59 06:59 18:59 Intake Total 120 Output Total 600 Balance -600 120 Weight 204.117 kg Intake: Oral 120 Output: Urine 600 Other: Voiding Method Indwelling Catheter Indwelling Catheter Indwelling Catheter # Voids 1 # Bowel Movements 2 - Exam Physical examination: PHYSICAL EXAMINATION: Patient is resting comfortably in bed. VITAL SIGNS: Blood pressure is [133/70]. Heart rate is [55]. Respiration is [16] . Temperature is [97.7]. HEENT: Head is atraumatic, neck is supple, there were no carotid bruits. CHEST: Lungs are clear to auscultation and percussion. CARDIAC: S1, S2 normal rate and rhythm. There is no murmur. ABDOMEN: Soft and nontender. Bowel sounds are present. EXTREMITIES: There is no pedal edema. Peripheral pulses are present. Neurological examination: Patient's neurological examination is unchanged from yesterday. - Labs CBC & Chem 7: 12/31/16 06:00 12/31/16 14:05 Labs: Abnormal Lab Results - Last 24 Hours (Table) 12/30/16 12/31/16 12/31/16 Range/Units 13:07 06:00 06:00 WBC 3.6 L (3.8-10.6) k/uL Hgb 11.1 L (11.4-16.0) gm/dL MCHC 27.5 L (31.0-37.0) g/dL RDW 17.6 H (11.5-15.5) % Plt Count 86 L (150-450) k/uL Lymphocytes # (Manual) 0.5 L (1.0-4.8) k/uL Potassium 5.9 H 6.4 H* (3.5-5.1) mmol/L Carbon Dioxide 35 H (22-30) mmol/L BUN 47 H (7-17) mg/dL Creatinine 2.20 H (0.52-1.04) mg/dL Glucose 70 L (74-99) mg/dL ALT 64 H (9-52) U/L Albumin 3.2 L (3.5-5.0) g/dL Assessment and Plan (1) Arterial ischemic stroke, vertebrobasilar, brainstem, acute Status: Acute Code(s): I63.219 - CEREB INFRC DUE TO UNSP OCCLS OR STENOSIS OF UNSP VERTEB ART; I63.22 - CEREBRAL INFRC DUE TO UNSP OCCLS OR STENOSIS OF BASILAR ART (2) Diplopia Status: Acute Code(s): H53.2 - DIPLOPIA (3) Expressive aphasia Status: Acute Code(s): R47.01 - APHASIA (4) Acute renal failure Status: Acute Code(s): N17.9 - ACUTE KIDNEY FAILURE, UNSPECIFIED (5) Morbid obesity Status: Chronic Code(s): E66.01 - MORBID (SEVERE) OBESITY DUE TO EXCESS CALORIES (6) Sleep apnea Status: Chronic Code(s): G47.30 - SLEEP APNEA, UNSPECIFIED Plan: This patient is a 66-year-old female who is being evaluated for altered mental status and diplopia. According to the daughter who provided the medical history today for the past 1 week she has been complaining of slurred speech as well as double vision. Her daughter has been caring for her at the assisted and due to the finding today of hyperkalemia she was sent in to the emergency room subsequent admitted to the hospital. The daughter who provided the medical history today at bedside states that for the past week she has noted increasing slurring of her speech. She is also more confused and disoriented. She was complaining of double vision to the daughter for the past week as well. Apparently this was a horizontal diplopia. Her neurological examination today does reveal evidence of ocular dysmetria involving the left eye. There is possible left lateral rectus muscle weakness in the left eye possibly due to brain stem ischemia. Her slurred speech is also noted today on examination. We have recommended patient undergo a complete stroke evaluation to rule out brainstem stroke. Her computed tomography scan of the brain revealed some maharaj white matter differentiation changes. We would recommend an MRI of the brain for further evaluation of possible brainstem stroke as well as further assessment of the maharaj-white junction. All of these findings were reviewed today with the patient's daughter at bedside. All of her questions were answered. We will proceed to obtain an MRI if possible locally due to her weight and girth she may have to go to a open MRI as an outpatient. We have discussed all of these details today with the patient's daughter and the patient. We will proceed with our stroke evaluation for the patient. She does have evidence of mild metabolic encephalopathy secondary to metabolic derangement. Her serum creatinine today is 2.2. Hopefully her mental status will improve as her kidney function improves. The patient does have multiple complex medical issues. We have scheduled the patient for MRI of the brain provided she can fit into the unit. If this is not possible then would recommend outside open MRI for further evaluation. Patient continues to have symptoms of slurred speech and diplopia. We will continue close neurological follow-up for the patient during this admission. Her overall prognosis at this time remains very guarded. We will continue close neurological follow-up for this patient during this admission.
--- NOTE | 2016-12-31 15:29 | P.PN ---
Subjective Is a 66-year-old female with history of congestive heart failure EF is 40-45% and pulmonary hypertension comes into the hospital from [facility] as patient was noted to have change in mental status over the last few days. Patient apparently has had poor oral intake. Patient was recently in the hospital after sustaining a fall patient was noted to have low hemoglobin thereafter underwent endometrial biopsy. Patient apparently has not had significant oral intake in the last few days creatinine has jumped up from baseline of 1-2.36 on this admission. During my examination patient is not arousable opens her eyes to painful similar. The information is retrieved from the chart review. Patient has a Arteaga catheter inserted the same. Diuretics were held. Patient is currently maintained on 2 L of supplemental oxygen. At baseline patient is able to ambulate with some difficulty however is dependent on help for all ADLs. 12/31/2069 Patient appears to be slightly improved. Apparently is tolerating more diet. No new overnight events reported. Patient is tolerating BiPAP family was at bedside. Patient has not had a bowel movement the same. Patient's potassium was noted to be around 6.5. Objective - Vital Signs Vital signs: Vital Signs Temp 97 F L 12/31/16 12:00 Pulse 59 L 12/31/16 12:00 Resp 16 12/31/16 12:00 BP 122/64 12/31/16 12:00 Pulse Ox 100 12/31/16 12:00 Intake & Output 12/30/16 12/31/16 12/31/16 18:59 06:59 18:59 Intake Total 120 Output Total 600 250 Balance -600 -130 Weight 204.117 kg Intake: Oral 120 Output: Urine 600 250 Other: Voiding Method Indwelling Catheter Indwelling Catheter Indwelling Catheter # Voids 1 # Bowel Movements 2 - Exam Physical exam Gen. appearance oriented 3 in no distress Neck is supple no JVD Lungs breath sounds no rhonchi wheezing or crackles appreciated Heart S1-S2 heard regular rate and rhythm no murmurs appreciated Abdomen is soft nontender no organomegaly bowel sounds are intact Neurologically cranial nerves II-12 grossly intact no focal motor or sensory deficits noted Skin a skin tear apparently on the buttock region. present on admission - Labs CBC & Chem 7: 12/31/16 06:00 12/31/16 14:05 Labs: Abnormal Lab Results - Last 24 Hours (Table) 12/31/16 12/31/16 12/31/16 Range/Units 06:00 06:00 14:05 WBC 3.6 L (3.8-10.6) k/uL Hgb 11.1 L (11.4-16.0) gm/dL MCHC 27.5 L (31.0-37.0) g/dL RDW 17.6 H (11.5-15.5) % Plt Count 86 L (150-450) k/uL Lymphocytes # (Manual) 0.5 L (1.0-4.8) k/uL Potassium 6.4 H* 5.4 H (3.5-5.1) mmol/L Carbon Dioxide 35 H (22-30) mmol/L BUN 47 H (7-17) mg/dL Creatinine 2.20 H (0.52-1.04) mg/dL Glucose 70 L (74-99) mg/dL ALT 64 H (9-52) U/L Albumin 3.2 L (3.5-5.0) g/dL Assessment and Plan Plan: 1 acute metabolic encephalopathy #2 history of COPD #3 nonoliguric acute kidney injury with underlying ATN likely secondary to medications and poor oral intake #4 history of congestive heart failure that is compensated EF of 40-45% #5 pulmonary hypertension #6 obstructive sleep apnea there is some question of compliance #7 morbid obesity #8 anemia #9 hyperkalemia #10 hypertension Plan Continue BiPAP therapy. Monitor urine output. Carotid and renal ultrasound were negative. Repeat labs name. Repeat potassium. Appreciate nephrology recommendations.
[2017-01-01 06:49] LABS: Calcium 9.7 mg/dL (8.4-10.2); Potassium 5.4 mmol/L (3.5-5.1)
[2017-01-01] MEDS: CARVEDILOL 12.5 MG TAB PO SCH ×2 (07:41→17:21)
[2017-01-01] MEDS: ALBUTEROL NEBULIZED 2.5 MG/3 ML INHALATION PRN ×3 (08:00→16:56)
[2017-01-01] MEDS: hydrALAZINE HCL 25 MG TAB PO SCH ×3 (09:30→20:29)
--- NOTE | 2017-01-01 11:16 | CDI ---
In responding to this query, please exercise your independent professional judgment. The [facility] Coding Staff and Clinical Documentation Specialists appreciate your assistance in clarifying documentation, maintaining compliance with coding guidelines, accurately documenting patients condition and capturing severity of illness. The fact that a question is asked does not imply that any particular answer is desired or expected. Communication forms are a method of clarifying documentation and are not made part of the Legal Health Record. Thank you in advance for your clarification. Last Revision, December 2015 Tai Contreras [address] [place] [address] Documentation Clarification Form Date: 01/01/2017 11:03:00 AM From: Mag Romero RN, CCDS Admit Date: 12/30/2016 9:13:00 AM Patient Name: Yojana Anand Visit Number: [id number] Dr. Enrique Zheng History: Chronic atrial Fib, falls, HTN Pt came in with c/o confusion, lethargy, diplopia, slurred speech, left ocular muscle weakness Clinical Indicators: CVA is documented as a diagnosis in the Neurology Consult and Progress Notes: "Arterial ischemic stroke, vertebrobasilar, brainstem, acute." 12/30 CT Brain: The maharaj-white interface is not well defined on the current examination which can be associated with anoxic injury. " MRI/MRA: Ordered, not yet completed Treatment: MRI ordered In your professional opinion, please clarify if you agree with CVA diagnosis and was it POA and specify if able the following: Cause of Stroke/CVA: Stenosis/Occlusion Embolic Thrombolytic Hypertension Other (please specify) Unable to Determine Laterality: Left Right Bilateral Other (please specify) Unable to Determine Vessel/Location Involved: Anterior Cerebral Artery Cerebellar Middle Cerebral Artery Posterior Cerebral Artery Precerebral Artery: Carotid Basilar Auditory, internal Vertebral Other (please specify) Unable to Determine Also, indicate any deficits related to the Stroke/CVA in your documentation ( such as aphasia, ataxia, cognitive deficits, dysphagia, hemiplegiaetc.) Please document in your progress notes and discharge summary in order to capture severity of illness and risk of mortality. Include clinical findings that support your diagnosis. FYI: Press F11 to launch patient chart Place X here if this finding has no clinical significance, is not applicable or if you are not able to provide any additional documentation. MTDD
--- NOTE | 2017-01-01 17:05 | P.PN ---
Subjective This patient is a 66-year-old right-handed -[place]ian female who was transferred for [facility] for evaluation of hyperkalemia. She was treated with Kayexalate yesterday for this condition. She also according to her daughter and other family members had shown changes in mentation with slurred speech and [facility] She did undergo a computed tomography scan of the brain which revealed poor delineation of the maharaj-white junction. There was no evidence of acute stroke or hemorrhage. CAT scan findings was suggesting possibility of anoxic injury. Patient does have a history of obstructive sleep apnea and does use CPAP machine for treatment. Apparently she was not using [facility]. We did review the CAT scan results with the daughter and the patient yesterday. We have recommended if possible for the patient to obtain a MRI of the brain. Due to her weight this may be a restriction locally for MRI scanning. We will try to obtain an MRI for further assessment of her current neurological status. Her neurological examination yesterday also revealed her to have slurred speech as well as left ocular muscle weakness. This is suggesting a left lateral rectus palsy. For this reason MRI scanning was recommended to further evaluate for brainstem ischemia and/or stroke. The patient is being treated for hyperkalemia today as well. Her potassium level is 6.4 and she was given Kayexalate as well as IV insulin and sodium bicarbonate. Nephrology is monitoring her condition closely. Her serum creatinine is come down slightly to 2.2 today. Neurologically she is showing no new changes in her neurological exam. Patient continues to have slurring of her speech. She denies any headache today. She did have a carotid Doppler ultrasound done which revealed no significant carotid artery stenosis. Apparently the patient is unable to have MRI of the brain done at this facility due to her weight and girth. We have recommended that she be sent for a outside open MRI for further assessment of possible brainstem stroke. Nursing staff is aware of her inability to have MRI done locally. Case management is working on arranging for outpatient MRI to be done. We will continue close neurological follow-up for the patient. Her overall prognosis remains guarded. Objective - Vital Signs Vital signs: Vital Signs Temp 96.8 F L 01/01/17 00:00 Pulse 64 01/01/17 12:17 Resp 18 01/01/17 11:29 BP 138/75 01/01/17 11:29 Pulse Ox 99 01/01/17 11:29 Intake & Output 12/31/16 01/01/17 01/01/17 18:59 06:59 18:59 Intake Total 240 210 Output Total 250 425 Balance -10 -425 210 Weight 212 kg Intake: Oral 240 210 Output: Urine 250 425 Other: Voiding Method Indwelling Catheter Indwelling Catheter Indwelling Catheter - Exam Physical examination: PHYSICAL EXAMINATION: Patient is resting comfortably in bed. VITAL SIGNS: Blood pressure is [140/65]. Heart rate is [65]. Respiration is [16] . Temperature is [97.0]. HEENT: Head is atraumatic, neck is supple, there were no carotid bruits. CHEST: Lungs are clear to auscultation and percussion. CARDIAC: S1, S2 normal rate and rhythm. There is no murmur. ABDOMEN: Soft and nontender. Bowel sounds are present. EXTREMITIES: There is no pedal edema. Peripheral pulses are present. Neurological examination: Patient's neurological examination is unchanged from yesterday. Patient continues to show evidence of slurred speech. Cranial nerve examination continues to show evidence of disconjugate eye gaze. - Labs CBC & Chem 7: 12/31/16 06:00 01/01/17 06:00 Labs: Abnormal Lab Results - Last 24 Hours (Table) 01/01/17 Range/Units 06:00 Sodium 146 H (137-145) mmol/L Potassium 5.4 H (3.5-5.1) mmol/L Carbon Dioxide 37 H (22-30) mmol/L BUN 45 H (7-17) mg/dL Creatinine 2.01 H (0.52-1.04) mg/dL Glucose 63 L (74-99) mg/dL Assessment and Plan (1) Arterial ischemic stroke, vertebrobasilar, brainstem, acute Status: Acute Code(s): I63.219 - CEREB INFRC DUE TO UNSP OCCLS OR STENOSIS OF UNSP VERTEB ART; I63.22 - CEREBRAL INFRC DUE TO UNSP OCCLS OR STENOSIS OF BASILAR ART (2) Diplopia Status: Acute Code(s): H53.2 - DIPLOPIA (3) Expressive aphasia Status: Acute Code(s): R47.01 - APHASIA (4) Acute renal failure Status: Acute Code(s): N17.9 - ACUTE KIDNEY FAILURE, UNSPECIFIED (5) Morbid obesity Status: Chronic Code(s): E66.01 - MORBID (SEVERE) OBESITY DUE TO EXCESS CALORIES (6) Sleep apnea Status: Chronic Code(s): G47.30 - SLEEP APNEA, UNSPECIFIED Plan: This patient is a 66-year-old female who is being evaluated for possibility of brainstem stroke. She was unable to have MRI of the brain done at this facility due to her weight and girth. We're waiting to see if she can have an open MRI done as outpatient and brought back to the hospital for further management. Case management and director social service are working on this today. Patient continues to have slurring of her speech. She also continues to demonstrate disconjugate eye gaze. Concern for possibility of brainstem ischemia remains high in this patient. We will continue our complete stroke evaluation for this patient. Her overall prognosis at this time remains guarded. We will await to see if she will be able to have an MRI during this admission. As noted her overall prognosis at this time remains guarded.
--- NOTE | 2017-01-01 18:04 | P.PN ---
Subjective Is a 66-year-old female with history of congestive heart failure EF is 40-45% and pulmonary hypertension comes into the hospital from [facility] as patient was noted to have change in mental status over the last few days. Patient apparently has had poor oral intake. Patient was recently in the hospital after sustaining a fall patient was noted to have low hemoglobin thereafter underwent endometrial biopsy. Patient apparently has not had significant oral intake in the last few days creatinine has jumped up from baseline of 1-2.36 on this admission. During my examination patient is not arousable opens her eyes to painful similar. The information is retrieved from the chart review. Patient has a Arteaga catheter inserted the same. Diuretics were held. Patient is currently maintained on 2 L of supplemental oxygen. At baseline patient is able to ambulate with some difficulty however is dependent on help for all ADLs. 12/31/2069 Patient appears to be slightly improved. Apparently is tolerating more diet. No new overnight events reported. Patient is tolerating BiPAP family was at bedside. Patient has not had a bowel movement the same. Patient's potassium was noted to be around 6.5. 01/01/2002 She is awake is able to answer questions appropriately. Patient does not state to have any double vision. Is having any headaches, nausea, vomiting, diarrhea. Objective - Vital Signs Vital signs: Vital Signs Temp 96.8 F L 01/01/17 16:00 Pulse 68 01/01/17 17:07 Resp 16 01/01/17 16:00 BP 140/65 01/01/17 16:00 Pulse Ox 100 01/01/17 16:00 Intake & Output 12/31/16 01/01/17 01/01/17 18:59 06:59 18:59 Intake Total 240 330 Output Total 250 425 425 Balance -10 -425 -95 Weight 212 kg 212 kg Intake: Oral 240 330 Output: Urine 250 425 425 Other: Voiding Method Indwelling Catheter Indwelling Catheter Indwelling Catheter # Voids 1 - Exam Physical exam Gen. appearance oriented 3 in no distress Neck is supple no JVD Lungs breath sounds no rhonchi wheezing or crackles appreciated Heart S1-S2 heard regular rate and rhythm no murmurs appreciated Abdomen is soft nontender no organomegaly bowel sounds are intact Neurologically cranial nerves II-12 grossly intact no focal motor or sensory deficits noted. Disconjugate gaze Skin a skin tear apparently on the buttock region. present on admission - Labs CBC & Chem 7: 12/31/16 06:00 01/01/17 06:00 Labs: Abnormal Lab Results - Last 24 Hours (Table) 01/01/17 Range/Units 06:00 Sodium 146 H (137-145) mmol/L Potassium 5.4 H (3.5-5.1) mmol/L Carbon Dioxide 37 H (22-30) mmol/L BUN 45 H (7-17) mg/dL Creatinine 2.01 H (0.52-1.04) mg/dL Glucose 63 L (74-99) mg/dL Assessment and Plan Plan: 1 acute metabolic encephalopathy #2 history of COPD #3 nonoliguric acute kidney injury with underlying ATN likely secondary to medications and poor oral intake #4 history of congestive heart failure that is compensated EF of 40-45% #5 pulmonary hypertension #6 obstructive sleep apnea there is some question of compliance #7 morbid obesity #8 anemia #9 hyperkalemia #10 hypertension #11 disconjugate gaze likely superior obliquepalsy rule out CVA and brain stem. Plan Patient does appear to have some isolated rectus muscle palsy or possibly even a brainstem stroke Discussed regarding timing of MRI. Patient apparently needs to be an open MRI Patient will however be started on aspirin and statin at this time. Did discussed the findings with the patient's family.
--- NOTE | 2017-01-01 19:50 | PN ---
Patient is seen for followup for acute kidney injury. She was admitted to the hospital with hyperkalemia. Patient has a chronic Arteaga in place. She does have CKD with baseline creatinine of about 1.3 mg/dL. Serum creatinine was at 2.3 on 12/30/2016; now it is down to 2.01. Potassium is improved to 5.4 today. Currently patient is not on any IV fluids or diuretics. On examination, patient is comfortable. Blood pressure is 140/65, heart rate 66 per minute. She is morbidly obese. EXAMINATION OF THE HEART: S1 and S2. EXAMINATION OF LUNGS: Decreased breath sounds in bases. Breath sounds are poorly heard secondary to body habitus. Examination of lower extremities shows severe chronic skin changes with evidence of chronic edema. No open wounds are noted at this time. Labs show sodium 146, potassium 5.4, BUN 45, serum creatinine 2.01. Hemoglobin 11.1 g/dL. ASSESSMENT: 1. Acute kidney injury, non-oliguric, with indwelling Arteaga catheter secondary to fluid retention. Renal function is improving. Diuretics are on hold. 2. Hyperkalemia associated with acute kidney injury. Avoid constipation. Maintain patient on low-potassium diet. Currently she is not acidotic; therefore sodium bicarb will not help. 3. Morbid obesity. 4. Chronic kidney disease with previous creatinine in November of 2016 of about 1.3 and 1.4 mg/dL with UA negative for protein. CKD is stage III, most likely secondary to nephrosclerosis. Patient is not on any nephrotoxic medications. 5. Cardiomyopathy with ejection fraction of 40% to 45%. 6. Pulmonary hypertension. 7. Obstructive sleep apnea. PLAN: Repeat labs in a.m. Continue indwelling Arteaga catheter for now. Patient was seen in the morning at about 11:30 a.m.
[2017-01-01] MEDS: ASPIRIN 325 MG TAB PO SCH (20:30)
[2017-01-01] MEDS: ATORVASTATIN 40 MG TAB PO SCH (20:30)
[2017-01-02 03:59] LABS: Appearance,Urine Cloudy (Clear); Bacteria,Urine Occasional /hpf; Bilirubin,Urine Negative (Negative); Glucose,Urine (UA) Negative (Negative); Ketones,Urine Negative (Negative); Leukocyte Esterase,Urine Large (Negative); Mucus,Urine Rare /hpf; Nitrite,Urine Negative (Negative); Particle Count 17410; Protein,Urine 1+ (Negative); RBC,Urine 18 /hpf (0-5); Specific Gravity,Urine 1.012 (1.001-1.035); Squamous Epithelial Cell,Urine 3 /hpf (0-4); UA Billing (MACRO vs. MICRO) MICRO; Urobilinogen,Urine <2.0 mg/dL (<2.0); WBC,Urine 56 /hpf (0-5)
--- NOTE | 2017-01-02 05:16 | EEG ---
DATE OF SERVICE: 01/01/2017 INDICATIONS FOR EXAMINATION: This patient is a 66-year-old female being evaluated for brain stem stroke. Patient with increasing slurred speech and disconjugate eye gaze. AGE: 66Y EEG FINDINGS: A routine 21-channel, awake digital EEG recording was accomplished utilizing the 10 to 20 international system with bipolar and referential montages. The background activity in the most alert resting state consists of a low to medium amplitude, poorly developed and poorly sustained 5 to 6 Hz activity over the posterior head regions. This posterior rhythm attenuates minimally to eye opening. There is a small amount of low amplitude 18 to 20 Hz beta activity seen maximally over the anterior head regions. Muscle and movement artifact was observed on a few occasions during the tracing. Hyperventilation was not performed. Photic stimulation at flash frequencies of 2 to 30 Hz produced a minimal occipital driving response. No epileptiform discharges were seen. IMPRESSION: This EEG gives evidence of a severe widespread diffuse disturbance in cerebral function. The EEG failed to reveal any focal, lateralized or epileptiform abnormalities. Clinical correlation is recommended.
[2017-01-02] MEDS: CARVEDILOL 12.5 MG TAB PO SCH ×2 (06:07→17:11)
[2017-01-02 06:25] LABS: Calcium 9.5 mg/dL (8.4-10.2); Potassium 5.2 mmol/L (3.5-5.1); Total Bilirubin 0.7 mg/dL (0.2-1.3); Total Protein 5.9 g/dL (6.3-8.2)
[2017-01-02] MEDS: ASPIRIN 325 MG TAB PO SCH (10:22)
[2017-01-02] MEDS: hydrALAZINE HCL 25 MG TAB PO SCH ×3 (10:22→20:40)
--- NOTE | 2017-01-02 16:56 | P.PN ---
Objective - Vital Signs Vital signs: Vital Signs Temp 97.9 F 01/02/17 03:07 Pulse 62 01/02/17 11:35 Resp 18 01/02/17 11:35 BP 101/67 01/02/17 11:35 Pulse Ox 99 01/02/17 11:35 Intake & Output 01/01/17 01/02/17 01/02/17 18:59 06:59 18:59 Intake Total 450 540 120 Output Total 825 1400 0 Balance -375 -860 120 Weight 212 kg 214.2 kg Intake: Oral 450 540 120 Output: Urine 825 1400 0 Other: Voiding Method Indwelling Catheter Indwelling Catheter Indwelling Catheter # Voids 1 1 - Labs CBC & Chem 7: 12/31/16 06:00 01/02/17 05:47 Labs: Abnormal Lab Results - Last 24 Hours (Table) 01/02/17 01/02/17 Range/Units 03:30 05:47 Sodium 146 H (137-145) mmol/L Potassium 5.2 H (3.5-5.1) mmol/L Carbon Dioxide 35 H (22-30) mmol/L BUN 46 H (7-17) mg/dL Creatinine 1.70 H (0.52-1.04) mg/dL Glucose 72 L (74-99) mg/dL Total Protein 5.9 L (6.3-8.2) g/dL Albumin 2.9 L (3.5-5.0) g/dL Urine Appearance Cloudy H (Clear) Urine Protein 1+ H (Negative) Urine Blood Trace H (Negative) Ur Leukocyte Esterase Large H (Negative) Urine RBC 18 H (0-5) /hpf Urine WBC 56 H (0-5) /hpf Urine WBC Clumps Few H (None) /hpf Urine Bacteria Occasional H (None) /hpf Hyaline Casts 56 H (0-2) /lpf Urine Mucus Rare H (None) /hpf Assessment and Plan Plan: Was not able to see the patient today as patient was sent to open MRI in [facility]
--- NOTE | 2017-01-02 18:22 | P.PN ---
Subjective This patient is a 66-year-old right-handed -[place] female who was transferred for [facility] for evaluation of hyperkalemia. She was treated with Kayexalate yesterday for this condition. She also according to her daughter and other family members had shown changes in mentation with slurred speech and confusion for the past 1 week at the group home. She did undergo a computed tomography scan of the brain which revealed poor delineation of the maharaj-white junction. There was no evidence of acute stroke or hemorrhage. CAT scan findings was suggesting possibility of anoxic injury. Patient does have a history of obstructive sleep apnea and does use CPAP machine for treatment. Apparently she was not using her CPAP for 4 days at the group home. We did review the CAT scan results with the daughter and the patient yesterday. We have recommended if possible for the patient to obtain a MRI of the brain. Due to her weight this may be a restriction locally for MRI scanning. We will try to obtain an MRI for further assessment of her current neurological status. Her neurological examination yesterday also revealed her to have slurred speech as well as left ocular muscle weakness. This is suggesting a left lateral rectus palsy. For this reason MRI scanning was recommended to further evaluate for brainstem ischemia and/or stroke. The patient is being treated for hyperkalemia today as well. Her potassium level is 6.4 and she was given Kayexalate as well as IV insulin and sodium bicarbonate. Nephrology is monitoring her condition closely. Her serum creatinine is come down slightly to 2.2 today. Neurologically she is showing no new changes in her neurological exam. Patient continues to have slurring of her speech. She denies any headache today. She did have a carotid Doppler ultrasound done which revealed no significant carotid artery stenosis. Apparently the patient is unable to have MRI of the brain done at this facility due to her weight and girth. We have recommended that she be sent for a outside open MRI for further assessment of possible brainstem stroke. Nursing staff is aware of her inability to have MRI done locally. Case management is working on arranging for outpatient MRI to be done. Patient was able to go for MRI at the open MRI Center in [place] today. She just returned from the MRI Center and we're waiting the final report on this MRI of the brain. The patient is doing better today in terms of her speech. It is less dysphasic as it was 2 days ago. She also states that the double vision is shown some improvement today. She is continues to show some ocular weakness with the left eye movements. We will await the MRI report to rule out brainstem ischemia. Case was discussed today at length with the patient's daughter at bedside. She was updated on her neurological findings today in detail. We will continue close neurological follow-up for the patient. Her overall prognosis remains guarded. Objective - Vital Signs Vital signs: Vital Signs Temp 97.9 F 01/02/17 03:07 Pulse 62 01/02/17 11:35 Resp 18 01/02/17 11:35 BP 101/67 01/02/17 11:35 Pulse Ox 99 01/02/17 11:35 Intake & Output 01/01/17 01/02/17 01/02/17 18:59 06:59 18:59 Intake Total 450 540 120 Output Total 825 1400 0 Balance -375 -860 120 Weight 212 kg 214.2 kg Intake: Oral 450 540 120 Output: Urine 825 1400 0 Other: Voiding Method Indwelling Catheter Indwelling Catheter Indwelling Catheter # Voids 1 1 - Exam Physical examination: PHYSICAL EXAMINATION: Patient is resting comfortably in bed. VITAL SIGNS: Blood pressure is [101/67]. Heart rate is [60]. Respiration is [18] . Temperature is [97.9]. HEENT: Head is atraumatic, neck is supple, there were no carotid bruits. CHEST: Lungs are clear to auscultation and percussion. CARDIAC: S1, S2 normal rate and rhythm. There is no murmur. ABDOMEN: Soft and nontender. Bowel sounds are present. EXTREMITIES: There is no pedal edema. Peripheral pulses are present. Neurological examination: Patient's neurological examination is unchanged from yesterday. Patient has less slurring of her speech today. Cranial nerve examination continues to show evidence of disconjugate eye gaze. Patient has left eye gaze paresis. - Labs CBC & Chem 7: 12/31/16 06:00 01/02/17 05:47 Labs: Abnormal Lab Results - Last 24 Hours (Table) 01/02/17 01/02/17 Range/Units 03:30 05:47 Sodium 146 H (137-145) mmol/L Potassium 5.2 H (3.5-5.1) mmol/L Carbon Dioxide 35 H (22-30) mmol/L BUN 46 H (7-17) mg/dL Creatinine 1.70 H (0.52-1.04) mg/dL Glucose 72 L (74-99) mg/dL Total Protein 5.9 L (6.3-8.2) g/dL Albumin 2.9 L (3.5-5.0) g/dL Urine Appearance Cloudy H (Clear) Urine Protein 1+ H (Negative) Urine Blood Trace H (Negative) Ur Leukocyte Esterase Large H (Negative) Urine RBC 18 H (0-5) /hpf Urine WBC 56 H (0-5) /hpf Urine WBC Clumps Few H (None) /hpf Urine Bacteria Occasional H (None) /hpf Hyaline Casts 56 H (0-2) /lpf Urine Mucus Rare H (None) /hpf Assessment and Plan (1) Arterial ischemic stroke, vertebrobasilar, brainstem, acute Status: Acute Code(s): I63.219 - CEREB INFRC DUE TO UNSP OCCLS OR STENOSIS OF UNSP VERTEB ART; I63.22 - CEREBRAL INFRC DUE TO UNSP OCCLS OR STENOSIS OF BASILAR ART (2) Diplopia Status: Acute Code(s): H53.2 - DIPLOPIA (3) Expressive aphasia Status: Acute Code(s): R47.01 - APHASIA (4) Acute renal failure Status: Acute Code(s): N17.9 - ACUTE KIDNEY FAILURE, UNSPECIFIED (5) Morbid obesity Status: Chronic Code(s): E66.01 - MORBID (SEVERE) OBESITY DUE TO EXCESS CALORIES (6) Sleep apnea Status: Chronic Code(s): G47.30 - SLEEP APNEA, UNSPECIFIED Plan: This patient is a 66-year-old female who is being evaluated for possible stroke. Patient was able to complete a MRI of the brain at the [facility] center and fluent. She returned this evening and we're waiting the final MRI report. Case was discussed at length with the patient's daughter and family members at bedside. We're waiting the final MRI report. Rule out brainstem ischemia. Patient is showing improvement today not only with her speech but also I movements in the left eye. We will continue close neurological follow-up for this patient during this admission. She'll be reevaluated tomorrow hopefully with the results of her MRI of the brain available to be discussed with the daughter and family members. Her overall prognosis at this time remains guarded.
--- NOTE | 2017-01-02 19:34 | PN ---
Patient is seen for followup for acute kidney injury. She is currently awake, comfortable. She is not in any acute distress. She seems to be alert and oriented x3. She is currently in the process of going for an MRI in [place], as it is an open MRI. On examination today, blood pressure was 130/64, heart rate 60 per minute. She is afebrile. Examination shows chronic skin changes, lower extremities, with chronic edema. Abdomen is morbidly obese. Heart sounds are heard. Decreased breath sounds in the lung bases. Labs show sodium 146, potassium 5.2, serum creatinine down to 1.7. ASSESSMENT: 1. Acute kidney injury, currently improving. Patient has an indwelling Arteaga catheter secondary to urine retention. Blood pressure is not significantly low. No nephrotoxic made agents on board. No IV fluids or diuretics. 2. Chronic kidney disease with previous creatinine at about 1.3 and 1.4 mg/dL in November of 2016 with estimated GFR at about 30 to 36 mL/minute. Etiology is likely nephrosclerosis; however, UA shows 1+ protein. This may be secondary to urinary tract infection. Previous UA was negative for protein. 3. Hyperkalemia associated with acute kidney injury, currently improved. 4. Morbid obesity. 5. Cardiomyopathy with an ejection fraction of 40% to 45%. 6. Urine retention with indwelling Arteaga catheter. 7. Pulmonary hypertension. 8. Obstructive sleep apnea. 9. Acute cerebrovascular accident, status post MRI with findings suggestive of possible basilar artery-related infarct. Patient is being seen by Neurology. PLAN: Repeat labs in a.m. Continue to avoid nephrotoxic medications.
[2017-01-02] MEDS: ALBUTEROL NEBULIZED 2.5 MG/3 ML INHALATION PRN (20:40)
[2017-01-02] MEDS: ATORVASTATIN 40 MG TAB PO SCH (20:40)
[2017-01-02] MEDS ORDERED: DOCUSATE 100 MG CAP PO PRN (22:17)
[2017-01-02] MEDS ORDERED: LACTULOSE 20 GM/30 ML CUP PO PRN (22:20)
[2017-01-03] MEDS: CARVEDILOL 12.5 MG TAB PO SCH ×2 (06:34→16:54)
[2017-01-03] MEDS: ALBUTEROL NEBULIZED 2.5 MG/3 ML INHALATION PRN (08:20)
[2017-01-03 09:32] LABS: Calcium 9.5 mg/dL (8.4-10.2); Potassium 4.9 mmol/L (3.5-5.1)
[2017-01-03 09:34] LABS: Anisocytosis Slight; CH 26.5; HCT 36.5 % (34.0-46.0); HDW 3.09; HGB 10.5 gm/dL (11.4-16.0); Hypochromasia Marked; MCH 27.4 pg (25.0-35.0); MCHC 28.7 g/dL (31.0-37.0); MCV 95.4 fL (80.0-100.0); Macrocytosis Slight; Mean Platelet Volume 11.2; RBC 3.82 m/uL (3.80-5.40); RDW 18.1 % (11.5-15.5); WBC 4.3 k/uL (3.8-10.6)
[2017-01-03] MEDS: ASPIRIN 325 MG TAB PO SCH (10:06)
[2017-01-03] MEDS: hydrALAZINE HCL 25 MG TAB PO SCH ×3 (10:07→22:18)
--- NOTE | 2017-01-03 15:13 | PN ---
Patient is seen for follow-up for acute kidney injury, renal function has been improving with serum creatinine now down to 1.7 from 2.3 mg/dL. Patient has an indwelling Arteaga catheter and she has had fairly good urine output. Currently, she is not on Lasix or diuretics. She has had good oral intake. On examination, blood pressure is 122/58, heart rate 59 per minute. She is afebrile. Examination of the heart, S1 and S2. Examination of the lungs, decreased breath sounds in the bases. Abdomen is soft, morbidly obese. Examination of lower extremities shows chronic skin changes with chronic edema which is not worse. 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 Speech does not appear to be slurred. Labs show sodium 145, potassium 4.9, BUN 50, serum creatinine 1.78. Hemoglobin 10.5 g/dL UA shows WBC is 18 with WBC clumps. ASSESSMENT: 1. Acute kidney injury, most likely prerenal, currently improving. Patient also had urine retention for which she has an indwelling Arteaga catheter now. Continue off of IV fluids and diuretics and patient is encouraged to increase oral intake. 2. Chronic kidney disease, NKF stage III with previous creatinine about 1.3-1.4 mg/dL in November of 2016 with estimated GFR at 30 to 36 mL/min likely secondary to nephrosclerosis. Previous UA was negative for protein. 3. Hyperkalemia associated with acute kidney injury, currently improved. 4. Cardiomyopathy with ejection fraction of 40% to 45%. 5. Urine retention with indwelling Arteaga catheter. 6. Obstructive sleep apnea. 7. Acute cerebrovascular accident, being followed by Neurology, status post MRI, result of which is not available at this time. PLAN: No changes in medications. Hold off on diuretics for now along with JUDIE inhibitors. The urine culture is still in progress. Patient is currently not on any antibiotics.
--- NOTE | 2017-01-03 16:53 | P.PN ---
Subjective Is a 66-year-old female with history of congestive heart failure EF is 40-45% and pulmonary hypertension comes into the hospital from [facility] as patient was noted to have change in mental status over the last few days. Patient apparently has had poor oral intake. Patient was recently in the hospital after sustaining a fall patient was noted to have low hemoglobin thereafter underwent endometrial biopsy. Patient apparently has not had significant oral intake in the last few days creatinine has jumped up from baseline of 1-2.36 on this admission. During my examination patient is not arousable opens her eyes to painful similar. The information is retrieved from the chart review. Patient has a Arteaga catheter inserted the same. Diuretics were held. Patient is currently maintained on 2 L of supplemental oxygen. At baseline patient is able to ambulate with some difficulty however is dependent on help for all ADLs. 12/31/2069 Patient appears to be slightly improved. Apparently is tolerating more diet. No new overnight events reported. Patient is tolerating BiPAP family was at bedside. Patient has not had a bowel movement the same. Patient's potassium was noted to be around 6.5. 01/01/2017 She is awake is able to answer questions appropriately. Patient does not state to have any double vision. Is having any headaches, nausea, vomiting, diarrhea. 01/03/2017 Patient is awake family was at bedside states that this is her baseline. Is able to recognize me. Denies having any chest pain, difficulty breathing, nausea, vomiting. Patient states that she has not had a bowel movement. Objective - Vital Signs Vital signs: Vital Signs Temp 94.5 F L 01/03/17 11:20 Pulse 59 L 01/03/17 11:55 Resp 16 01/03/17 11:20 BP 122/58 01/03/17 11:20 Pulse Ox 99 01/03/17 11:20 Intake & Output 01/02/17 01/03/17 01/03/17 18:59 06:59 18:59 Intake Total 220 440 300 Output Total 250 1050 Balance -30 -610 300 Weight 214.2 kg 214 kg 214 kg Intake: Oral 220 440 300 Output: Urine 250 1050 Other: Voiding Method Indwelling Catheter Indwelling Catheter Indwelling Catheter # Voids 1 1 # Bowel Movements 0 0 0 - Exam Physical exam Gen. appearance oriented 3 in no distress Neck is supple no JVD Lungs breath sounds no rhonchi wheezing or crackles appreciated Heart S1-S2 heard regular rate and rhythm no murmurs appreciated Abdomen is soft nontender no organomegaly bowel sounds are intact Neurologically cranial nerves II-12 grossly intact no focal motor or sensory deficits noted. this appears to be normal. Skin a skin tear apparently on the buttock region. present on admission - Labs CBC & Chem 7: 01/03/17 08:00 01/03/17 08:00 Labs: Abnormal Lab Results - Last 24 Hours (Table) 01/03/17 01/03/17 01/03/17 Range/Units 07:55 08:00 08:00 Hgb 10.5 L (11.4-16.0) gm/dL MCHC 28.7 L (31.0-37.0) g/dL RDW 18.1 H (11.5-15.5) % Plt Count 65 L (150-450) k/uL Carbon Dioxide 35 H (22-30) mmol/L BUN 50 H (7-17) mg/dL Creatinine 1.78 H (0.52-1.04) mg/dL Plasma Lactic Acid [place] 0.6 L (0.7-2.0) mmol/L Microbiology - Last 24 Hours (Table) 01/02/17 18:30 Urine Culture - Preliminary Urine,Catheterized Assessment and Plan Plan: 1 acute metabolic encephalopathy #2 history of COPD #3 nonoliguric acute kidney injury with underlying ATN likely secondary to medications and poor oral intake #4 history of congestive heart failure that is compensated EF of 40-45% #5 pulmonary hypertension #6 obstructive sleep apnea there is some question of compliance #7 morbid obesity #8 anemia #9 hyperkalemia #10 hypertension #11 disconjugate gaze likely superior obliquepalsy rule out CVA and brain stem. plan Await MRI results. Patient appears to be improved. Continue ongoing care. We' ll likely need to be placed if clinical improvement appears to be stable. Continue BiPAP.
--- NOTE | 2017-01-03 19:41 | P.PN ---
Subjective This patient is a 66-year-old right-handed -[place] female who was transferred for [facility] for evaluation of hyperkalemia. She was treated with Kayexalate yesterday for this condition. She also according to her daughter and other family members had shown changes in mentation with slurred speech and confusion for the past [facility] the [facility]. She did undergo a computed tomography scan of the brain which revealed poor delineation of the maharaj-white junction. There was no evidence of acute stroke or hemorrhage. CAT scan findings was suggesting possibility of anoxic injury. Patient does have a history of obstructive sleep apnea and does use CPAP machine for treatment. Apparently she was not using her CPAP for 4 days at the [facility]. We did review the CAT scan results with the daughter and the patient yesterday. We have recommended if possible for the patient to obtain a MRI of the brain. Due to her weight this may be a restriction locally for MRI scanning. We will try to obtain an MRI for further assessment of her current neurological status. Her neurological examination yesterday also revealed her to have slurred speech as well as left ocular muscle weakness. This is suggesting a left lateral rectus palsy. For this reason MRI scanning was recommended to further evaluate for brainstem ischemia and/or stroke. The patient is being treated for hyperkalemia today as well. Her potassium level is 6.4 and she was given Kayexalate as well as IV insulin and sodium bicarbonate. Nephrology is monitoring her condition closely. Her serum creatinine is come down slightly to 2.2 today. Neurologically she is showing no new changes in her neurological exam. Patient continues to have slurring of her speech. She denies any headache today. She did have a carotid Doppler ultrasound done which revealed no significant carotid artery stenosis. Apparently the patient is unable to have MRI of the brain done at this facility due to her weight and girth. We have recommended that she be sent for a outside open MRI for further assessment of possible brainstem stroke. Nursing staff is aware of her inability to have MRI done locally. Case management is working on arranging for outpatient MRI to be done. Patient was able to go for MRI at the open MRI Center in [place] today. She just returned from the MRI Center and we're waiting the final report on this MRI of the brain. The patient is doing better today in terms of her speech. It is less dysphasic as it was 2 days ago. She also states that the double vision is shown some improvement today. She is continues to show some ocular weakness with the left eye movements. We will await the MRI report to rule out brainstem ischemia. Case was discussed today at length with the patient's daughter at bedside. The patient does seem to be doing much better today in terms of her overall mental status. She was able to recognize her physician today by name. She is also more lucid and has much clear speech. Her left eye ocular paresis is also much improved. Her waiting the final report of the MRI of the brain for further assessment. She was updated on her neurological findings today in detail. We will continue close neurological follow-up for the patient. Her overall prognosis remains guarded. Objective - Vital Signs Vital signs: Vital Signs Temp 94.5 F L 01/03/17 11:20 Pulse 59 L 01/03/17 11:55 Resp 16 01/03/17 11:20 BP 122/58 01/03/17 11:20 Pulse Ox 99 01/03/17 11:20 Intake & Output 01/02/17 01/03/17 01/03/17 18:59 06:59 18:59 Intake Total 220 440 300 Output Total 250 1050 Balance -30 -610 300 Weight 214.2 kg 214 kg 214 kg Intake: Oral 220 440 300 Output: Urine 250 1050 Other: Voiding Method Indwelling Catheter Indwelling Catheter Indwelling Catheter # Voids 1 1 # Bowel Movements 0 0 0 - Exam Physical examination: PHYSICAL EXAMINATION: Patient is resting comfortably in bed. VITAL SIGNS: Blood pressure is [122/58]. Heart rate is [59]. Respiration is [16] . Temperature is [95.0]. HEENT: Head is atraumatic, neck is supple, there were no carotid bruits. CHEST: Lungs are clear to auscultation and percussion. CARDIAC: S1, S2 normal rate and rhythm. There is no murmur. ABDOMEN: Soft and nontender. Bowel sounds are present. EXTREMITIES: There is no pedal edema. Peripheral pulses are present. Neurological examination: Patient's neurological examination is unchanged from yesterday. Patient has less slurring of her speech today. Cranial nerve examination continues to show evidence of disconjugate eye gaze. Patient has left eye gaze paresis. Eye movements are improving daily. - Labs CBC & Chem 7: 01/03/17 08:00 01/03/17 08:00 Labs: Abnormal Lab Results - Last 24 Hours (Table) 01/03/17 01/03/17 01/03/17 Range/Units 07:55 08:00 08:00 Hgb 10.5 L (11.4-16.0) gm/dL MCHC 28.7 L (31.0-37.0) g/dL RDW 18.1 H (11.5-15.5) % Plt Count 65 L (150-450) k/uL Carbon Dioxide 35 H (22-30) mmol/L BUN 50 H (7-17) mg/dL Creatinine 1.78 H (0.52-1.04) mg/dL Plasma Lactic Acid [place] 0.6 L (0.7-2.0) mmol/L Microbiology - Last 24 Hours (Table) 01/02/17 18:30 Urine Culture - Preliminary Urine,Catheterized Assessment and Plan (1) Arterial ischemic stroke, vertebrobasilar, brainstem, acute Status: Acute Code(s): I63.219 - CEREB INFRC DUE TO UNSP OCCLS OR STENOSIS OF UNSP VERTEB ART; I63.22 - CEREBRAL INFRC DUE TO UNSP OCCLS OR STENOSIS OF BASILAR ART (2) Diplopia Status: Acute Code(s): H53.2 - DIPLOPIA (3) Expressive aphasia Status: Acute Code(s): R47.01 - APHASIA (4) Acute renal failure Status: Acute Code(s): N17.9 - ACUTE KIDNEY FAILURE, UNSPECIFIED (5) Morbid obesity Status: Chronic Code(s): E66.01 - MORBID (SEVERE) OBESITY DUE TO EXCESS CALORIES (6) Sleep apnea Status: Chronic Code(s): G47.30 - SLEEP APNEA, UNSPECIFIED Plan: This patient is a 66-year-old female who is being evaluated for possible brainstem ischemia. She completed an MRI of the brain at an outside MRI Center yesterday. We're waiting the final MRI report. Clinically she is showing significant improvement in her mental status as well as ocular eye movements. Her clinical history suggesting possibility of vertebrobasilar insufficiency as a form of brainstem ischemia. We will continue close neurological follow-up for this patient. We will hopefully be able to review the MRI results tomorrow with the patient and family members. Her overall prognosis at this time remains guarded. We will continue close neurological follow-up for the patient during this admission. Case was discussed at length with her daughter is at bedside. All of their questions were answered. Her overall prognosis at this time remains guarded.
[2017-01-03] MEDS: ATORVASTATIN 40 MG TAB PO SCH (22:18)
[2017-01-04 07:10] LABS: Calcium 9.7 mg/dL (8.4-10.2); Magnesium 2.4 mg/dL (1.6-2.3); Potassium 4.8 mmol/L (3.5-5.1); Total Bilirubin 0.7 mg/dL (0.2-1.3); Total Protein 6.2 g/dL (6.3-8.2)
[2017-01-04 07:11] LABS: Anisocytosis Slight; CH 26.9; CHCM 28.3; HCT 36.3 % (34.0-46.0); HGB 10.3 gm/dL (11.4-16.0); Hypochromasia Marked; Large Platelets Flag Slight; MCH 27.2 pg (25.0-35.0); MCHC 28.4 g/dL (31.0-37.0); MCV 95.7 fL (80.0-100.0); Macrocytosis Slight; Mean Platelet Volume 11.4; RBC 3.79 m/uL (3.80-5.40); RDW 18.2 % (11.5-15.5); WBC 3.8 k/uL (3.8-10.6); WBC (Perox) 4.38
[2017-01-04] MEDS: hydrALAZINE HCL 25 MG TAB PO SCH ×3 (07:36→20:50)
[2017-01-04] MEDS: ASPIRIN 325 MG TAB PO SCH (07:36)
[2017-01-04] MEDS: CARVEDILOL 12.5 MG TAB PO SCH ×2 (07:36→17:51)
[2017-01-04 08:41] LABS: Add Differential Manual Differential
[2017-01-04 08:46] LABS: Nucleated Red Blood Cells 0 /100 WBC (0-0); Total Cells Counted 100
[2017-01-04 08:47] LABS: Target Cells Present
--- NOTE | 2017-01-04 16:40 | P.PN ---
Subjective Patient is seen in follow-up for acute kidney injury on chronic kidney disease. Patient has chronic kidney disease stage III secondary to nephrosclerosis with baseline creatinine near 1.3. It was elevated at 2.6 on admission and is stable at 1.76 today. She has a Arteaga catheter in place and is nonoliguric. Denies chest pain or shortness of breath. Appetite has been good. Vital signs are stable. General: The patient appeared well nourished and normally developed. HEENT: Head exam is unremarkable. Neck is without jugular venous distension. LUNGS: Lungs are clear to auscultation and percussion. Breath sounds decreased. HEART: Rate and Rhythm are regular. First and second heart sounds normal. No murmurs, rubs or gallops. ABDOMEN: Abdominal exam reveals normal bowel sounds. Non-tender and non- distended. No evidence of peritonitis. EXTREMITITES: Trace edema. Chronic venous stasis changes. Objective - Vital Signs Vital signs: Vital Signs Temp 97.8 F 01/04/17 08:00 Pulse 77 01/04/17 08:00 Resp 15 01/04/17 08:00 BP 121/71 01/04/17 08:00 Pulse Ox 100 01/04/17 08:00 Intake & Output 01/03/17 01/04/17 01/04/17 18:59 06:59 18:59 Intake Total 300 240 Output Total 975 Balance 300 -735 Weight 214 kg 215.541 kg 215.541 kg Intake: Oral 300 240 Output: Urine 975 Uretheral (Arteaga) 250 Other: Voiding Method Indwelling Catheter Indwelling Catheter Indwelling Catheter # Voids 200 200 # Bowel Movements 0 0 - Labs CBC & Chem 7: 01/04/17 06:22 01/04/17 06:22 Labs: Abnormal Lab Results - Last 24 Hours (Table) 01/04/17 01/04/17 Range/Units 06:22 06:22 RBC 3.79 L (3.80-5.40) m/uL Hgb 10.3 L (11.4-16.0) gm/dL MCHC 28.4 L (31.0-37.0) g/dL RDW 18.2 H (11.5-15.5) % Plt Count 65 L (150-450) k/uL Lymphocytes # (Manual) 0.3 L (1.0-4.8) k/uL Sodium 146 H (137-145) mmol/L Carbon Dioxide 38 H (22-30) mmol/L BUN 47 H (7-17) mg/dL Creatinine 1.76 H (0.52-1.04) mg/dL Magnesium 2.4 H (1.6-2.3) mg/dL Total Protein 6.2 L (6.3-8.2) g/dL Albumin 3.0 L (3.5-5.0) g/dL Microbiology - Last 24 Hours (Table) 01/02/17 18:30 Urine Culture - Final Urine,Catheterized Assessment and Plan Plan: Assessment: #1. Nonoliguric acute kidney injury mostly prerenal secondary to diuretics and poor oral intake. Creatinine stable at 1.76 today. #2. Hyperkalemia secondary to acute kidney injury and potassium supplementation. No evidence of acidosis. Resolved. #3. Chronic kidney disease stage III with baseline creatinine near 1.3 secondary to nephrosclerosis. Renal ultrasound benign. Recent urinalysis also benign. #4. Morbid obesity. #5. Hypertension with chronic kidney disease. Controlled. Plan: Fluids have been discontinued. She is tolerating oral intake. Discontinue Arteaga catheter today and monitor serial postvoid residuals. Avoid nephrotoxic agents and hypotensive episodes. Diuretics held for now. Possible discharge tomorrow.
[2017-01-04] MEDS: LACTULOSE 20 GM/30 ML CUP PO SCH ×2 (17:51→20:51)
--- NOTE | 2017-01-04 18:17 | P.PN ---
Subjective Is a 66-year-old female with history of congestive heart failure EF is 40-45% and pulmonary hypertension comes into the hospital from [facility] as patient was noted to have change in mental status over the last few days. Patient apparently has had poor oral intake. Patient was recently in the hospital after sustaining a fall patient was noted to have low hemoglobin thereafter underwent endometrial biopsy. Patient apparently has not had significant oral intake in the last few days creatinine has jumped up from baseline of 1-2.36 on this admission. During my examination patient is not arousable opens her eyes to painful similar. The information is retrieved from the chart review. Patient has a Hughes catheter inserted the same. Diuretics were held. Patient is currently maintained on 2 L of supplemental oxygen. At baseline patient is able to ambulate with some difficulty however is dependent on help for all ADLs. 12/31/2069 Patient appears to be slightly improved. Apparently is tolerating more diet. No new overnight events reported. Patient is tolerating BiPAP family was at bedside. Patient has not had a bowel movement the same. Patient's potassium was noted to be around 6.5. 01/01/2017 She is awake is able to answer questions appropriately. Patient does not state to have any double vision. Is having any headaches, nausea, vomiting, diarrhea. 01/03/2017 Patient is awake family was at bedside states that this is her baseline. Is able to recognize me. Denies having any chest pain, difficulty breathing, nausea, vomiting. Patient states that she has not had a bowel movement. 01/04/17 No new overnight events Denies cp, kellie, nausea, vomiting or diarrhea. Objective - Vital Signs Vital signs: Vital Signs Temp 97.6 F 01/04/17 16:00 Pulse 76 01/04/17 16:00 Resp 14 01/04/17 16:00 BP 117/71 01/04/17 16:00 Pulse Ox 99 01/04/17 16:00 Intake & Output 01/03/17 01/04/17 01/04/17 18:59 06:59 18:59 Intake Total 300 240 Output Total 975 Balance 300 -735 Weight 214 kg 215.541 kg 215.541 kg Intake: Oral 300 240 Output: Urine 975 Uretheral (Hughes) 250 Other: Voiding Method Indwelling Catheter Indwelling Catheter Indwelling Catheter # Voids 200 200 # Bowel Movements 0 0 - Exam Physical exam Gen. appearance oriented 3 in no distress Neck is supple no JVD Lungs breath sounds no rhonchi wheezing or crackles appreciated Heart S1-S2 heard regular rate and rhythm no murmurs appreciated Abdomen is soft nontender no organomegaly bowel sounds are intact Neurologically cranial nerves II-12 grossly intact no focal motor or sensory deficits noted. this appears to be normal. Skin a skin tear apparently on the buttock region. present on admission - Labs CBC & Chem 7: 01/04/17 06:22 01/04/17 06:22 Labs: Abnormal Lab Results - Last 24 Hours (Table) 01/04/17 01/04/17 Range/Units 06:22 06:22 RBC 3.79 L (3.80-5.40) m/uL Hgb 10.3 L (11.4-16.0) gm/dL MCHC 28.4 L (31.0-37.0) g/dL RDW 18.2 H (11.5-15.5) % Plt Count 65 L (150-450) k/uL Lymphocytes # (Manual) 0.3 L (1.0-4.8) k/uL Sodium 146 H (137-145) mmol/L Carbon Dioxide 38 H (22-30) mmol/L BUN 47 H (7-17) mg/dL Creatinine 1.76 H (0.52-1.04) mg/dL Magnesium 2.4 H (1.6-2.3) mg/dL Total Protein 6.2 L (6.3-8.2) g/dL Albumin 3.0 L (3.5-5.0) g/dL Microbiology - Last 24 Hours (Table) 01/02/17 18:30 Urine Culture - Final Urine,Catheterized Assessment and Plan Plan: 1 acute metabolic encephalopathy #2 history of COPD #3 nonoliguric acute kidney injury with underlying ATN likely secondary to medications and poor oral intake #4 history of congestive heart failure that is compensated EF of 40-45% #5 pulmonary hypertension #6 obstructive sleep apnea there is some question of compliance #7 morbid obesity #8 anemia #9 hyperkalemia #10 hypertension #11 disconjugate gaze likely superior obliquepalsy rule out CVA and brain stem. ruled out 12. Mastoiditis, asymptomatic plan MRI brain negative for stroke Patient appears to be improved. Continue ongoing care. Continue BiPAP at night Placement back to NH. bp stable Dc hughes PVR 4-6 hrs after.
--- NOTE | 2017-01-04 20:45 | P.PN ---
Subjective This patient is a 66-year-old right-handed -[place] female who was transferred for [facility] for evaluation of hyperkalemia. She was treated with Kayexalate yesterday for this condition. She also according to her daughter and other family members had shown changes in mentation with slurred speech and confusion for the [facility]. She did undergo a computed tomography scan of the brain which revealed poor delineation of the maharaj-white junction. There was no evidence of acute stroke or hemorrhage. CAT scan findings was suggesting possibility of anoxic injury. Patient does have a history of obstructive sleep apnea and does use CPAP machine for treatment. Apparently she was not using her CPAP for 4 days at the [facility]. We did review the CAT scan results with the daughter and the patient yesterday. We have recommended if possible for the patient to obtain a MRI of the brain. Due to her weight this may be a restriction locally for MRI scanning. We will try to obtain an MRI for further assessment of her current neurological status. Her neurological examination yesterday also revealed her to have slurred speech as well as left ocular muscle weakness. This is suggesting a left lateral rectus palsy. For this reason MRI scanning was recommended to further evaluate for brainstem ischemia and/or stroke. The patient is being treated for hyperkalemia today as well. Her potassium level is 6.4 and she was given Kayexalate as well as IV insulin and sodium bicarbonate. Nephrology is monitoring her condition closely. Her serum creatinine is come down slightly to 2.2 today. Neurologically she is showing no new changes in her neurological exam. Patient continues to have slurring of her speech. She denies any headache today. She did have a carotid Doppler ultrasound done which revealed no significant carotid artery stenosis. Apparently the patient is unable to have MRI of the brain done at this facility due to her weight and girth. We have recommended that she be sent for a outside open MRI for further assessment of possible brainstem stroke. Nursing staff is aware of her inability to have MRI done locally. Case management is working on arranging for outpatient MRI to be done. Patient was able to go for MRI at the open MRI Center in [place] today. She just returned from the MRI Center and we're waiting the final report on this MRI of the brain. The patient is doing better today in terms of her speech. It is less dysphasic as it was 2 days ago. She also states that the double vision is shown some improvement today. She is continues to show some ocular weakness with the left eye movements. We will await the MRI report to rule out brainstem ischemia. Case was discussed today at length with the patient's daughter at bedside. The patient does seem to be doing much better today in terms of her overall mental status. The patient clinically continues to show improvement in her overall neurological findings. We did obtain a final report on her MRI of the brain that was done on 01/02/2017. MRI reveals mild chronic white matter ischemia without evidence of acute stroke or infarct. Moderate degree of mastoid opacification is noted. We reviewed the results of the MRI today with the patient. As noted clinically she is showing significant improvement in her overall neurological exam. We will continue close monitoring of her neurological findings during this admission. Objective - Vital Signs Vital signs: Vital Signs Temp 97.6 F 01/04/17 16:00 Pulse 76 01/04/17 16:00 Resp 14 01/04/17 16:00 BP 117/71 01/04/17 16:00 Pulse Ox 99 01/04/17 16:00 Intake & Output 01/03/17 01/04/17 01/04/17 18:59 06:59 18:59 Intake Total 300 240 Output Total 1040 Balance 300 -800 Weight 214 kg 215.541 kg 215.541 kg Intake: Oral 300 240 Output: Urine 975 Uretheral (Arteaga) 250 Post Void Residual 65 Other: Voiding Method Indwelling Catheter Indwelling Catheter Incontinent # Voids 200 200 # Bowel Movements 0 0 - Exam Physical examination: PHYSICAL EXAMINATION: Patient is resting comfortably in bed. VITAL SIGNS: Blood pressure is [122/58]. Heart rate is [59]. Respiration is [16] . Temperature is [95.0]. HEENT: Head is atraumatic, neck is supple, there were no carotid bruits. CHEST: Lungs are clear to auscultation and percussion. CARDIAC: S1, S2 normal rate and rhythm. There is no murmur. ABDOMEN: Soft and nontender. Bowel sounds are present. EXTREMITIES: There is no pedal edema. Peripheral pulses are present. Neurological examination: Patient's neurological examination is unchanged from yesterday. Patient has less slurring of her speech today. Cranial nerve examination continues to show evidence of disconjugate eye gaze. Patient has left eye gaze paresis. Eye movements are improving daily. - Labs CBC & Chem 7: 01/04/17 06:22 01/04/17 06:22 Labs: Abnormal Lab Results - Last 24 Hours (Table) 01/04/17 01/04/17 Range/Units 06:22 06:22 RBC 3.79 L (3.80-5.40) m/uL Hgb 10.3 L (11.4-16.0) gm/dL MCHC 28.4 L (31.0-37.0) g/dL RDW 18.2 H (11.5-15.5) % Plt Count 65 L (150-450) k/uL Lymphocytes # (Manual) 0.3 L (1.0-4.8) k/uL Sodium 146 H (137-145) mmol/L Carbon Dioxide 38 H (22-30) mmol/L BUN 47 H (7-17) mg/dL Creatinine 1.76 H (0.52-1.04) mg/dL Magnesium 2.4 H (1.6-2.3) mg/dL Total Protein 6.2 L (6.3-8.2) g/dL Albumin 3.0 L (3.5-5.0) g/dL Microbiology - Last 24 Hours (Table) 01/02/17 18:30 Urine Culture - Final Urine,Catheterized Assessment and Plan (1) Arterial ischemic stroke, vertebrobasilar, brainstem, acute Status: Acute Code(s): I63.219 - CEREB INFRC DUE TO UNSP OCCLS OR STENOSIS OF UNSP VERTEB ART; I63.22 - CEREBRAL INFRC DUE TO UNSP OCCLS OR STENOSIS OF BASILAR ART (2) Diplopia Status: Acute Code(s): H53.2 - DIPLOPIA (3) Expressive aphasia Status: Acute Code(s): R47.01 - APHASIA (4) Acute renal failure Status: Acute Code(s): N17.9 - ACUTE KIDNEY FAILURE, UNSPECIFIED (5) Morbid obesity Status: Chronic Code(s): E66.01 - MORBID (SEVERE) OBESITY DUE TO EXCESS CALORIES (6) Sleep apnea Status: Chronic Code(s): G47.30 - SLEEP APNEA, UNSPECIFIED Plan: This patient is a 66-year-old female who is being evaluated for possible brainstem ischemia. She completed an MRI of the brain at an outside MRI Center yesterday. We're waiting the final MRI report. Clinically she is showing significant improvement in her mental status as well as ocular eye movements. Her clinical history suggesting possibility of vertebrobasilar insufficiency as a form of brainstem ischemia. We will continue close neurological follow-up for this patient. We will hopefully be able to review the MRI results tomorrow with the patient and family members. Results of her MRI that was done in [place] on 01/02/2017 was obtained today. MRI revealed only mild chronic white matter ischemia with no evidence of acute brainstem stroke or infarct. No other areas of acute infarction or hemorrhage was noted. We did review the results of the MRI today with the patient in detail. She does continue to show improvement in her overall neurological exam findings. Her clinical history is still consistent with vertebrobasilar insufficiency or brainstem ischemia. Her overall prognosis at this time remains guarded. We will continue close neurological follow-up for the patient during this admission. Case was discussed at length with her daughter is at bedside. All of their questions were answered. Her overall prognosis at this time remains guarded.
[2017-01-04] MEDS: ATORVASTATIN 40 MG TAB PO SCH (20:51)
[2017-01-04 22:42] VITALS: TEMP 97.3
[2017-01-05 03:01] VITALS: RESP 16
[2017-01-05 07:44] VITALS: BP 128/65; PULSE 62
[2017-01-05 07:59] LABS: Anisocytosis Slight; Basophils % (A) 0 %; CH 26.6; CHCM 27.9; Eosinophils # (A) 0.1 k/uL (0-0.7); Eosinophils % (A) 1 %; HCT 35.2 % (34.0-46.0); HDW 3.01; Hypochromasia Marked; Large Platelets Flag Moderate; Luc # (Auto) 0.14; Luc % (Auto) 3; Lymphocytes # (A) 0.5 k/uL (1.0-4.8); Lymphocytes % (A) 13 %; MCH 27.2 pg (25.0-35.0); MCHC 28.3 g/dL (31.0-37.0); MCV 96.2 fL (80.0-100.0); Macrocytosis Slight; Mean Platelet Volume 12.5; Monocytes # (A) 0.4 k/uL (0-1.0); Monocytes % (A) 11 %; Neutrophils % (A) 72 %; RBC 3.66 m/uL (3.80-5.40); RDW 18.1 % (11.5-15.5); WBC 4.1 k/uL (3.8-10.6); WBC (Perox) 4.35
[2017-01-05 08:06] LABS: Magnesium 2.5 mg/dL (1.6-2.3); Phosphorous 3.5 mg/dL (2.5-4.5); Potassium 4.9 mmol/L (3.5-5.1); Total Bilirubin 0.9 mg/dL (0.2-1.3); Total Protein 6.2 g/dL (6.3-8.2)
[2017-01-05] MEDS: hydrALAZINE HCL 25 MG TAB PO SCH (08:44)
[2017-01-05] MEDS: CARVEDILOL 12.5 MG TAB PO SCH (08:44)
[2017-01-05] MEDS: ASPIRIN 325 MG TAB PO SCH (08:44)
[2017-01-05] MEDS: LACTULOSE 20 GM/30 ML CUP PO SCH (08:44)
[2017-01-05 09:21] LABS: Target Cells Present
--- NOTE | 2017-01-05 10:33 | P.PN ---
Subjective Patient is seen in follow-up for acute kidney injury on chronic kidney disease. Patient has chronic kidney disease stage III secondary to nephrosclerosis with baseline creatinine near 1.3. It was elevated at 2.6 on admission and is stable at 1.66 today. She is nonoliguric. Denies chest pain or shortness of breath. Appetite has been good. Vital signs are stable. General: The patient appeared well nourished and normally developed. HEENT: Head exam is unremarkable. Neck is without jugular venous distension. LUNGS: Lungs are clear to auscultation and percussion. Breath sounds decreased. HEART: Rate and Rhythm are regular. First and second heart sounds normal. No murmurs, rubs or gallops. ABDOMEN: Abdominal exam reveals normal bowel sounds. Non-tender and non- distended. No evidence of peritonitis. EXTREMITITES: Trace edema. Chronic venous stasis changes. Objective - Vital Signs Vital signs: Vital Signs Temp 97.3 F L 01/05/17 07:30 Pulse 62 01/05/17 07:30 Resp 16 01/05/17 07:30 BP 128/65 01/05/17 07:30 Pulse Ox 97 01/05/17 07:30 Intake & Output 01/04/17 01/05/17 01/05/17 18:59 06:59 18:59 Intake Total 240 540 Output Total 1040 425 Balance -800 115 Weight 215.541 kg 215.456 kg Intake: Oral 240 540 Output: Urine 975 425 Uretheral (Arteaga) 250 Post Void Residual 65 Other: Voiding Method Incontinent Incontinent # Voids 200 1 # Bowel Movements 0 - Labs CBC & Chem 7: 01/05/17 07:17 01/05/17 07:17 Labs: Abnormal Lab Results - Last 24 Hours (Table) 01/05/17 01/05/17 Range/Units 07:17 07:17 RBC 3.66 L (3.80-5.40) m/uL Hgb 10.0 L (11.4-16.0) gm/dL MCHC 28.3 L (31.0-37.0) g/dL RDW 18.1 H (11.5-15.5) % Plt Count 54 L (150-450) k/uL Lymphocytes # 0.5 L (1.0-4.8) k/uL Sodium 148 H (137-145) mmol/L Carbon Dioxide 38 H (22-30) mmol/L BUN 47 H (7-17) mg/dL Creatinine 1.66 H (0.52-1.04) mg/dL Magnesium 2.5 H (1.6-2.3) mg/dL AST 106 H (14-36) U/L ALT 80 H (9-52) U/L Alkaline Phosphatase 159 H (38-126) U/L Total Protein 6.2 L (6.3-8.2) g/dL Albumin 2.9 L (3.5-5.0) g/dL Assessment and Plan Plan: Assessment: #1. Nonoliguric acute kidney injury mostly prerenal secondary to diuretics and poor oral intake. Creatinine stable at 1.66 today. #2. Hyperkalemia secondary to acute kidney injury and potassium supplementation. No evidence of acidosis. Resolved. #3. Chronic kidney disease stage III with baseline creatinine near 1.3 secondary to nephrosclerosis. Renal ultrasound benign. Recent urinalysis also benign. #4. Morbid obesity. #5. Hypertension with chronic kidney disease. Controlled. #6. Hypernatremia secondary to lack of oral water intake. Plan: Fluids have been discontinued. She is tolerating oral intake. I encouraged her to drink more water. Avoid nephrotoxic agents and hypotensive episodes. Diuretics held for now. Possible discharge today. She will need to follow-up as an outpatient in the next 2 weeks.
[2017-01-05 10:44] VITALS: BMI 79.0
--- NOTE | 2017-01-05 13:42 | DS ---
DATE OF ADMISSION: 12/30/2016 DATE OF DISCHARGE: 01/05/2017 FINAL DIAGNOSES: 1. Acute brainstem ischemia in a right-handed patient. 2. Acute metabolic encephalopathy probably from underlying renal failure. 3. Acute renal failure, prerenal from diuretics. 4. Chronic kidney disease, stage III secondary to nephrosclerosis. 5. Hypertension with chronic kidney disease. 6. Hyperkalemia secondary to potassium supplement. 7. Persistent atrial fibrillation. 8. Fatty liver. 9. Chronic obstructive pulmonary disease in an ex-smoker. 10. Primary osteoarthritis of multiple joints, bilateral. 11. Obstructive sleep apnea, uses a CPAP. 12. Chronic gout. 13. Chronic congestive heart failure from diastolic dysfunction; ejection fraction not known. 14. Morbid obesity, body mass index 79. CONSULTATIONS: Dr. Vaughan from nephrology; Dr. Shin nephrology. HOSPITAL COURSE: This patient presented with mental status changes felt to be brainstem ischemia per Dr. Arenas. Patient has also had renal failure and creatinine did come down. Creatinine did come down from 2.33 down to 1.66. At the time of ( ), patient was communicative, talking. Carotid Doppler was unremarkable. An EEG did not show any seizure activity. Patient's dose of Lasix was cut back. On exam, she had distant breath sounds. PSYCH: Alert and oriented x3 days. Discharge planning more than 35 minutes. Patient's BUN and creatinine were 47 and 1.66. DISCHARGE MEDICATIONS: 1. Ventolin HFA 2 puffs q.4 p.r.n. 2. Allopurinol 300 mg a day. 3. Lac-Hydrin 12% topical t.i.d.. 4. Ferrous sulfate 325 mg p.o. daily. 5. Folic acid 1 mg p.o. daily. 6. DuoNeb 3 mL q.6. 7. Coreg 25 mg p.o. b.i.d. 8. Imdur ER 30 mg daily. 9. Hydralazine 25 mg p.o. t.i.d. 10. Tylenol 650 mg p.o. q.4 p.r.n. 11. Caldesene powder topically b.i.d. 12. Milk of magnesia 2400 mg p.o. daily p.r.n. 13. Vitamin D3, 2000 units p.o. daily. 14. Calmoseptine topical b.i.d. 15. Adult Fleet 133 mL rectal daily p.r.n. 16. Aspirin 81 mg p.o. daily. 17. Lipitor 40 mg p.o. q.h.s. 18. Lasix 40 mg p.o. daily, new dose. 19. Potassium 20 mEq p.o. daily. DISPOSITION: [facility]. Follow up with Dr. Rodriguez. Discharge planning more than 35 minutes. LABS: BMP in 3 to 5 days.
--- NOTE | 2017-01-05 16:00 | P.PN ---
Subjective This patient is a 66-year-old right-handed -[place] female who was transferred for [facility] for evaluation of hyperkalemia. She was treated with Kayexalate yesterday for this condition. She also according to her daughter and other family members had shown changes in mentation with slurred speech and confusion for the past 1 week at the [place] [facility]. She did undergo a computed tomography scan of the brain which revealed poor delineation of the maharaj-white junction. There was no evidence of acute stroke or hemorrhage. CAT scan findings was suggesting possibility of anoxic injury. Patient does have a history of obstructive sleep apnea and does use CPAP machine for treatment. Apparently she was not using her CPAP for 4 days at the [place] [facility]. We did review the CAT scan results with the daughter and the patient yesterday. We have recommended if possible for the patient to obtain a MRI of the brain. Due to her weight this may be a restriction locally for MRI scanning. We will try to obtain an MRI for further assessment of her current neurological status. Her neurological examination yesterday also revealed her to have slurred speech as well as left ocular muscle weakness. This is suggesting a left lateral rectus palsy. For this reason MRI scanning was recommended to further evaluate for brainstem ischemia and/or stroke. The patient is being treated for hyperkalemia today as well. Her potassium level is 6.4 and she was given Kayexalate as well as IV insulin and sodium bicarbonate. Nephrology is monitoring her condition closely. Her serum creatinine is come down slightly to 2.2 today. Neurologically she is showing no new changes in her neurological exam. Patient continues to have slurring of her speech. She denies any headache today. She did have a carotid Doppler ultrasound done which revealed no significant carotid artery stenosis. Apparently the patient is unable to have MRI of the brain done at this facility due to her weight and girth. We have recommended that she be sent for a outside open MRI for further assessment of possible brainstem stroke. Nursing staff is aware of her inability to have MRI done locally. Case management is working on arranging for outpatient MRI to be done. Patient was able to go for MRI at the [facility] in [place] today. She just returned from the MRI Center and we're waiting the final report on this MRI of the brain. The patient is doing better today in terms of her speech. It is less dysphasic as it was 2 days ago. She also states that the double vision is shown some improvement today. She is continues to show some ocular weakness with the left eye movements. We will await the MRI report to rule out brainstem ischemia. Case was discussed today at length with the patient's daughter at bedside. The patient does seem to be doing much better today in terms of her overall mental status. The patient clinically continues to show improvement in her overall neurological findings. We did obtain a final report on her MRI of the brain that was done on 01/02/2017. MRI reveals mild chronic white matter ischemia without evidence of acute stroke or infarct. Moderate degree of mastoid opacification is noted. We reviewed the results of the MRI today with the patient. As noted clinically she is showing significant improvement in her overall neurological exam. Patient is being discharged to [facility] later today. She may follow-up in the outpatient neurology clinic soon after discharge from the [facility]. We will continue close monitoring of her neurological findings during this admission. Objective - Vital Signs Vital signs: Vital Signs Temp 97.3 F L 01/05/17 07:30 Pulse 62 01/05/17 07:30 Resp 16 01/05/17 07:30 BP 128/65 01/05/17 07:30 Pulse Ox 97 01/05/17 07:30 Intake & Output 01/04/17 01/05/17 01/05/17 18:59 06:59 18:59 Intake Total 240 540 180 Output Total 1040 425 Balance -800 115 180 Weight 215.541 kg 215.456 kg 215.456 kg Intake: Oral 240 540 180 Output: Urine 975 425 Uretheral (Arteaga) 250 Post Void Residual 65 Other: Voiding Method Incontinent Incontinent Incontinent # Voids 200 1 1 # Bowel Movements 0 - Exam Physical examination: PHYSICAL EXAMINATION: Patient is resting comfortably in bed. VITAL SIGNS: Blood pressure is [128/65]. Heart rate is [62]. Respiration is [16] . Temperature is [97.3]. HEENT: Head is atraumatic, neck is supple, there were no carotid bruits. CHEST: Lungs are clear to auscultation and percussion. CARDIAC: S1, S2 normal rate and rhythm. There is no murmur. ABDOMEN: Soft and nontender. Bowel sounds are present. EXTREMITIES: There is no pedal edema. Peripheral pulses are present. Neurological examination: Patient's neurological examination is unchanged from yesterday. Patient has less slurring of her speech today. Cranial nerve examination continues to show evidence of disconjugate eye gaze. Patient has left eye gaze paresis. Eye movements are improving daily. - Labs CBC & Chem 7: 01/05/17 07:17 01/05/17 07:17 Labs: Abnormal Lab Results - Last 24 Hours (Table) 01/05/17 01/05/17 Range/Units 07:17 07:17 RBC 3.66 L (3.80-5.40) m/uL Hgb 10.0 L (11.4-16.0) gm/dL MCHC 28.3 L (31.0-37.0) g/dL RDW 18.1 H (11.5-15.5) % Plt Count 54 L (150-450) k/uL Lymphocytes # 0.5 L (1.0-4.8) k/uL Sodium 148 H (137-145) mmol/L Carbon Dioxide 38 H (22-30) mmol/L BUN 47 H (7-17) mg/dL Creatinine 1.66 H (0.52-1.04) mg/dL Magnesium 2.5 H (1.6-2.3) mg/dL AST 106 H (14-36) U/L ALT 80 H (9-52) U/L Alkaline Phosphatase 159 H (38-126) U/L Total Protein 6.2 L (6.3-8.2) g/dL Albumin 2.9 L (3.5-5.0) g/dL Assessment and Plan (1) Arterial ischemic stroke, vertebrobasilar, brainstem, acute Status: Acute Code(s): I63.219 - CEREB INFRC DUE TO UNSP OCCLS OR STENOSIS OF UNSP VERTEB ART; I63.22 - CEREBRAL INFRC DUE TO UNSP OCCLS OR STENOSIS OF BASILAR ART (2) Diplopia Status: Acute Code(s): H53.2 - DIPLOPIA (3) Expressive aphasia Status: Acute Code(s): R47.01 - APHASIA (4) Acute renal failure Status: Acute Code(s): N17.9 - ACUTE KIDNEY FAILURE, UNSPECIFIED (5) Morbid obesity Status: Chronic Code(s): E66.01 - MORBID (SEVERE) OBESITY DUE TO EXCESS CALORIES (6) Sleep apnea Status: Chronic Code(s): G47.30 - SLEEP APNEA, UNSPECIFIED Plan: This patient is a 66-year-old -[place] female initially evaluated for altered mental status and double vision. Patient had been symptomatic for a week prior to her admission. Her neurological exam findings suggested possibility of brainstem ischemia as she had left ocular muscle paresis. The symptoms have gradually improved over the last week. She was sent for MRI of the brain for further evaluation. These results were reviewed with the patient and family members extensively. There is no evidence of acute brainstem stroke. Her clinical history is still suggesting brainstem ischemia as a type of TIA. Most likely this represents an episode of vertebrobasilar insufficiency. She is being transferred to the [facility] later today. Her symptoms of ocular paresis involving the left eye have significantly improved. Her mental status is also improved. Her speech is improved from initial evaluation. She has much less dysarthric speech at this time. Patient remains stable and is being readied for discharge to the [facility] later today. She may follow-up in the outpatient neurology clinic in 3-4 weeks following discharge from [facility]. Her overall prognosis at this time remains guarded.
== END 2017-01-05 15:36 | DRG 682 ==
LOC: EC 06:40 → 6SEL 09:13 → 3SUR 01-03 17:46
PROVIDERS: ADMIT Hospitalist; ATTEND Hospitalist
DX: N17.0 Acute kidney failure with tubular necrosis (principal); G93.41 Metabolic encephalopathy; E87.0 Hyperosmolality and hypernatremia; I13.0 Hypertensive heart and chronic kidney disease with heart failure and stage 1 through stage 4 chronic kidney disease, or unspecified chronic kidney disease; I50.32 Chronic diastolic (congestive) heart failure; Z68.45 Body mass index [BMI] 70 or greater, adult; I42.9 Cardiomyopathy, unspecified; I67.82 Cerebral ischemia; I48.1 Persistent atrial fibrillation; R47.01 Aphasia; I27.2 Other secondary pulmonary hypertension; E66.01 Morbid (severe) obesity due to excess calories; E87.5 Hyperkalemia; N18.3 Chronic kidney disease, stage 3 (moderate); K76.0 Fatty (change of) liver, not elsewhere classified; J44.9 Chronic obstructive pulmonary disease, unspecified; H53.2 Diplopia; R47.02 Dysphasia; M1A.9XX0 Chronic gout, unspecified, without tophus (tophi); G47.33 Obstructive sleep apnea (adult) (pediatric); D64.9 Anemia, unspecified; M19.91 Primary osteoarthritis, unspecified site; I87.8 Other specified disorders of veins; J45.909 Unspecified asthma, uncomplicated; R32 Unspecified urinary incontinence; R33.9 Retention of urine, unspecified; M19.90 Unspecified osteoarthritis, unspecified site; T50.2X5A Adverse effect of carbonic-anhydrase inhibitors, benzothiadiazides and other diuretics, initial encounter; Z87.891 Personal history of nicotine dependence; Z79.899 Other long term (current) drug therapy
CPT/HCPCS: 36415; 36600; 70450; 71010; 71020; 76770; 80048; 80053; 80061; 80306; 81001; 81003; 82140; 82550; 82553; 82805; 83605; 83735; 84100; 84132; 84439; 84443; 84484; 85025; 85027; 85610; 85730; 87086; 93005; 93880; 94640; 94660; 95816; 96361; 96374; 96375; 99291

== ENCOUNTER 2017-01-13 11:34 | Inpatient (IN) | payer MEDICARE, OTHER ==
[2017-01-13] MEDS ORDERED: PANTOPRAZOLE 40 MG/10 ML VIAL IVP STA (12:06)
--- NOTE | 2017-01-13 12:10 | ED ---
General Adult HPI - General Chief complaint: GI Bleed Stated complaint: Blood in vomit Time Seen by Provider: 01/13/17 11:54 Source: patient, family, EMS, RN notes reviewed Mode of arrival: EMS Limitations: no limitations - History of Present Illness Initial comments: Patient is a pleasant 66-year-old female presenting to the emergency Department with dark emesis. [facility] is [facility]. Patient reportedly had 3 episodes of coffee-ground emesis. No history of similar symptoms previously. Hemoglobin was 8.5 yesterday. Hemoglobin was 10 2 weeks ago. No abdominal pain. Patient does feel somewhat fatigued the last couple of days. No dyspnea. Patient does have a history of atrial fibrillation. Patient is currently not on anticoagulation secondary to history of vaginal bleeding. This did seem to improve after recent D&C. - Related Data Home Medications Medication Instructions Recorded Confirmed Albuterol Inhaler [Ventolin Hfa 2 puff INHALATION RT-Q4H PRN 12/19/16 12/30/16 Inhaler] Allopurinol [Zyloprim] 300 mg PO DAILY 12/19/16 12/30/16 Ammonium Lactate Lotion 1 applic TOPICAL TID 12/19/16 12/30/16 [Lac-Hydrin 12% Lotion] Ferrous Sulfate [Iron (65 MG 325 mg PO DAILY 12/19/16 12/30/16 Elemental)] Folic Acid 1 mg PO DAILY 12/19/16 12/30/16 Ipratropium-Albuterol Nebulize 3 ml INHALATION RT-Q6H 12/19/16 12/30/16 [Duoneb 0.5 mg-3 mg/3 ml Soln] Acetaminophen Tab [Tylenol] 650 mg PO Q4H PRN 12/25/16 12/30/16 Bisacodyl 10 mg RECTAL DAILY PRN 12/25/16 12/30/16 Caldesene Powder 1 applicate TOPICAL BID 12/25/16 12/30/16 Magnesium Hydroxide [Milk of 2,400 mg PO DAILY PRN 12/25/16 12/30/16 Magnesia] Cholecalciferol [Vitamin D3] 2,000 unit PO DAILY 12/30/16 12/30/16 Menthol/Zinc Oxide [Calmoseptine 1 applic TOPICAL BID 12/30/16 12/30/16 Ointment] Na Phos,M-B/Na Phos,Di-Ba [Fleet 133 ml RECTAL DAILY PRN 12/30/16 12/30/16 Adult] Previous Rx's Medication Instructions Recorded Carvedilol [Coreg*] 25 mg PO BID-W/MEALS tab 12/22/16 Isosorbide Mononitrate ER [Imdur] 30 mg PO DAILY tab.er.24h 12/22/16 hydrALAZINE HCL [Apresoline] 25 mg PO TID tab 12/22/16 Aspirin 81 mg PO DAILY #1 chewable 01/05/17 Atorvastatin [Lipitor] 40 mg PO HS tab 01/05/17 Furosemide [Lasix] 40 mg PO DAILY #0 01/05/17 Potassium Chloride [Klor-Con 20] 20 meq PO DAILY #0 01/05/17 Allergies Allergy/AdvReac Type Severity Reaction Status Date / Time No Known Allergies Allergy Verified 01/13/17 13:32 Review of Systems ROS Statement: Those systems with pertinent positive or pertinent negative responses have been documented in the HPI. ROS Other: All systems not noted in ROS Statement are negative. Constitutional: Denies: fever Eyes: Denies: eye pain ENT: Denies: ear pain Respiratory: Denies: cough Cardiovascular: Denies: chest pain Endocrine: Reports: fatigue Gastrointestinal: Reports: vomiting. Denies: abdominal pain, nausea Genitourinary: Denies: dysuria Musculoskeletal: Denies: back pain Skin: Denies: rash Neurological: Denies: headache Past Medical History Past Medical History: Atrial Fibrillation, Asthma, Heart Failure, Hypertension, Osteoarthritis (OA), Pneumonia, Sleep Apnea/CPAP/BIPAP Additional Past Medical History / Comment(s): BRUNILDA with CPAP, gout bilateral legs /feet, arthritis multiple joints, sinus problems, past left lower leg cellulitis and wound, UTIs. Morbid obesity History of Any Multi-Drug Resistant Organisms: None Reported Past Surgical History: Section, Ear Surgery Additional Past Surgical History / Comment(s): Debridement bilateral pedal toenails, colonoscopy-normal, L ear benign tumor removed, x 2. pt currently resides at [facility] [place] Past Anesthesia/Blood Transfusion Reactions: No Reported Reaction Past Psychological History: No Psychological Hx Reported Additional Psychological History / Comment(s): Pt lives at [facility] on the second floor. She uses a walker to ambulate. She no longer drives, she uses transportation provided by [employer]. Smoking Status: Former smoker Past Alcohol Use History: Rare Additional Past Alcohol Use History / Comment(s): Pt states she started smoking in 1970 and quit in 2002 Past Drug Use History: None Reported - Past Family History Mother Family Medical History: Cancer Additional Family Medical History / Comment(s): Mother of colon cancer at the age of 54 yrs. Father Family Medical History: Myocardial Infarction (UT) Additional Family Medical History / Comment(s): Father of a massive UT at the age of 60 yrs. General Exam Limitations: no limitations General appearance: alert, in no apparent distress, obese Head exam: Present: atraumatic Eye exam: Present: normal appearance, PERRL ENT exam: Present: normal oropharynx Neck exam: Present: normal inspection Respiratory exam: Present: normal lung sounds bilaterally Cardiovascular Exam: Present: irregular rhythm GI/Abdominal exam: Present: soft. Absent: distended, tenderness, guarding, rebound, rigid Extremities exam: Present: normal inspection. Absent: pedal edema, calf tenderness Neurological exam: Present: alert Psychiatric exam: Present: normal affect, normal mood Skin exam: Absent: rash Course Vital Signs 01/13/17 11:44 Temperature 97 F L Pulse Rate 84 Respiratory 20 Rate Blood Pressure 117/76 O2 Sat by Pulse 99 Oximetry EKG Findings - EKG Comments: EKG Findings:: A. fib with rate of 83. QRS 102. QT 372. QTC 437. Normal axis. Normal QRS. Inferior T wave inversion and T-wave inversion in leads V3 through V6. Medical Decision Making - Medical Decision Making Patient reevaluated and resting comfortably in bed. Patient and family updated on results and plan. Dr. shankar paged for admission for , she is covering for Dr. alvarez. - Lab Data Result diagrams: 01/13/17 12:25 01/13/17 12:25 Lab Results 01/13/17 01/13/17 01/13/17 Range/Units 12:25 12:25 12:25 WBC 8.1 (3.8-10.6) k/uL RBC 3.11 L (3.80-5.40) m/uL Hgb 8.7 L (11.4-16.0) gm/dL Hct 29.8 L (34.0-46.0) % MCV 95.8 (80.0-100.0) fL MCH 28.0 (25.0-35.0) pg MCHC 29.3 L (31.0-37.0) g/dL RDW 18.9 H (11.5-15.5) % Plt Count 110 L (150-450) k/uL Neutrophils % 84 % Lymphocytes % 7 % Monocytes % 7 % Eosinophils % 1 % Basophils % 0 % Neutrophils # 6.7 (1.3-7.7) k/uL Lymphocytes # 0.6 L (1.0-4.8) k/uL Monocytes # 0.6 (0-1.0) k/uL Eosinophils # 0.1 (0-0.7) k/uL Basophils # 0.0 (0-0.2) k/uL Hypochromasia Marked Anisocytosis Slight Macrocytosis Slight PT 12.4 H (9.0-12.0) sec INR 1.2 (<1.1) APTT 23.2 (22.0-30.0) sec Sodium 145 (137-145) mmol/L Potassium 5.2 H (3.5-5.1) mmol/L Chloride 99 (98-107) mmol/L Carbon Dioxide 37 H (22-30) mmol/L Anion Gap 9 mmol/L BUN 72 H (7-17) mg/dL Creatinine 2.97 H (0.52-1.04) mg/dL Est GFR (MDRD) Af Amer 19 (>60 ml/min/1.73 sqM) Est GFR (MDRD) Non-Af 16 (>60 ml/min/1.73 sqM) Glucose 86 (74-99) mg/dL Calcium 9.7 (8.4-10.2) mg/dL Total Bilirubin 1.1 (0.2-1.3) mg/dL AST 77 H (14-36) U/L ALT 78 H (9-52) U/L Alkaline Phosphatase 165 H (38-126) U/L Total Creatine Kinase (30-135) U/L CK-MB (CK-2) (0.0-2.4) ng/mL CK-MB (CK-2) Rel Index Troponin I (0.000-0.034) ng/mL Total Protein 6.4 (6.3-8.2) g/dL Albumin 3.2 L (3.5-5.0) g/dL Blood Type Blood Type Recheck Antibody Screen Spec Expiration Date 01/13/17 01/13/17 Range/Units 12:25 12:25 WBC (3.8-10.6) k/uL RBC (3.80-5.40) m/uL Hgb (11.4-16.0) gm/dL Hct (34.0-46.0) % MCV (80.0-100.0) fL MCH (25.0-35.0) pg MCHC (31.0-37.0) g/dL RDW (11.5-15.5) % Plt Count (150-450) k/uL Neutrophils % % Lymphocytes % % Monocytes % % Eosinophils % % Basophils % % Neutrophils # (1.3-7.7) k/uL Lymphocytes # (1.0-4.8) k/uL Monocytes # (0-1.0) k/uL Eosinophils # (0-0.7) k/uL Basophils # (0-0.2) k/uL Hypochromasia Anisocytosis Macrocytosis PT (9.0-12.0) sec INR (<1.1) APTT (22.0-30.0) sec Sodium (137-145) mmol/L Potassium (3.5-5.1) mmol/L Chloride (98-107) mmol/L Carbon Dioxide (22-30) mmol/L Anion Gap mmol/L BUN (7-17) mg/dL Creatinine (0.52-1.04) mg/dL Est GFR (MDRD) Af Amer (>60 ml/min/1.73 sqM) Est GFR (MDRD) Non-Af (>60 ml/min/1.73 sqM) Glucose (74-99) mg/dL Calcium (8.4-10.2) mg/dL Total Bilirubin (0.2-1.3) mg/dL AST (14-36) U/L ALT (9-52) U/L Alkaline Phosphatase (38-126) U/L Total Creatine Kinase <20 L (30-135) U/L CK-MB (CK-2) 0.5 (0.0-2.4) ng/mL CK-MB (CK-2) Rel Index 0.0 Troponin I 0.169 H* (0.000-0.034) ng/mL Total Protein (6.3-8.2) g/dL Albumin (3.5-5.0) g/dL Blood Type O Positive Blood Type Recheck No Antibody Screen NEGATIVE Spec Expiration Date 01/16/2017 - 8224 - Radiology Data Radiology results: image reviewed Disposition Clinical Impression: Elevated troponin, Upper gastrointestinal hemorrhage Disposition: ADMITTED IP TO THIS HOSP
[2017-01-13 12:47] LABS: Anisocytosis Slight; Basophils % (A) 0 %; CH 26.8; CHCM 28.1; Eosinophils # (A) 0.1 k/uL (0-0.7); Eosinophils % (A) 1 %; HCT 29.8 % (34.0-46.0); HGB 8.7 gm/dL (11.4-16.0); Hypochromasia Marked; Large Platelets Flag Marked; Luc % (Auto) 1; Lymphocytes # (A) 0.6 k/uL (1.0-4.8); Lymphocytes % (A) 7 %; MCHC 29.3 g/dL (31.0-37.0); MCV 95.8 fL (80.0-100.0); Macrocytosis Slight; Mean Platelet Volume 11.6; Monocytes # (A) 0.6 k/uL (0-1.0); Monocytes % (A) 7 %; Neutrophils # (A) 6.7 k/uL (1.3-7.7); Neutrophils % (A) 84 %; RBC 3.11 m/uL (3.80-5.40); RDW 18.9 % (11.5-15.5); WBC 8.1 k/uL (3.8-10.6); WBC (Perox) 8.87
[2017-01-13 12:59] LABS: Calcium 9.7 mg/dL (8.4-10.2); Potassium 5.2 mmol/L (3.5-5.1); Total Bilirubin 1.1 mg/dL (0.2-1.3); Total Protein 6.4 g/dL (6.3-8.2)
[2017-01-13 13:10] LABS: Creatine Kinase <20 U/L (30-135)
[2017-01-13 13:17] LABS: INR 1.2 (<1.1); Partial Thromboplastin Time 23.2 sec (22.0-30.0); Prothrombin Time 12.4 sec (9.0-12.0)
[2017-01-13 13:22] LABS: Creatine Kinase MB 0.5 ng/mL (0.0-2.4)
[2017-01-13 13:25] LABS: Troponin I 0.169 ng/mL (0.000-0.034)
[2017-01-13] MEDS ORDERED: NITROGLYCERIN SL TABS 0.4 MG TAB SUBLINGUAL PRN (13:42)
[2017-01-13] MEDS ORDERED: NALOXONE 0.4 MG/ML 1 ML VIAL IV PRN (13:42)
[2017-01-13] MEDS ORDERED: SODIUM CHLORIDE 0.9% 1,000 ML IV SCH (13:45)
[2017-01-13] MEDS ORDERED: BISACODYL 10 MG SUPP RECTAL PRN (15:40)
[2017-01-13] MEDS ORDERED: MAGNESIUM HYDROXIDE 2,400 MG/10 ML CUP PO PRN (15:40)
[2017-01-13] MEDS ORDERED: ALBUTEROL NEBULIZED 2.5 MG/3 ML INHALATION PRN (15:40)
--- NOTE | 2017-01-13 16:14 | XR ---
EXAMINATION TYPE: XR chest 1V DATE OF EXAM: 01/13/2017 3:59 PM COMPARISON: Prior chest x-ray 31 December 2016 HISTORY: Abnormal chest x-ray, rule out congestive heart failure TECHNIQUE: Single frontal view of the chest is obtained. FINDINGS: The heart is markedly enlarged as on prior exam. Basilar increased density is present, the left hemidiaphragm is obscured. Central vascularity is mildly prominent, there is no evident pneumot horax. There are overlying cardiac leads and the patient is rotated. IMPRESSION: Cardiomegaly, difficult to exclude lower lobe atelectasis versus pneumonia or possibly e ffusion, the exam is likely limited by patient body habitus, correlate.
[2017-01-13] MEDS: IPRATROPIUM-ALBUTEROL 3 ML NEB INHALATION SCH ×2 (16:21→21:06)
[2017-01-13] MEDS: CARVEDILOL 12.5 MG TAB PO SCH (17:11)
--- NOTE | 2017-01-13 18:03 | HP ---
This 66-year-old female was sent from [facility] because of about 3 episodes of coffee-ground emesis yesterday morning. Patient denied any abdominal pain. Patient denied any diarrhea or dark stools. Patient denied any fevers, chills and patient not on anticoagulation. Although EKG is consistent with atrial fibrillation, not a candidate for anticoagulation at this point of time because of her upper GI bleed as mentioned above. Patient does not use any NSAIDs. Patient does have CKD, probably secondary to hypertensive nephrosclerosis, and baseline creatinine is around 1.8. Now it has gone up to 2.97. Does have history of congestive heart failure, chronic diastolic dysfunction with minimally decreased ejection fraction of around 45% and patient has moderate to severe pulmonary hypertension as well. REVIEW OF SYSTEMS: CONSTITUTIONAL: No fever, no malaise, no fatigue. HEENT: No recent visual problems or hearing problems. Denied any sore throat. CARDIOVASCULAR: No chest pain, orthopnea, PND, no palpitations, no syncope. PULMONARY: No shortness of breath, no cough, no hemoptysis. GASTROINTESTINAL: As described in HPI. NEUROLOGICAL: No headaches, no weakness, no numbness. HEMATOLOGICAL: Denies any bleeding or petechiae. GENITOURINARY: Denies any burning micturition, frequency, or urgency. MUSCULOSKELETAL/RHEUMATOLOGICAL: Denies any joint pain, swelling, or any muscle pain. ENDOCRINE: Denies any polyuria or polydipsia. The rest of the 14 point review of systems is negative. Home medications include: 1. Albuterol. 2. Allopurinol. 3. Ammonium lactate. 4. Ferrous sulfate. 5. Folic acid. 6. Ipratropium. 7. Acetaminophen. 8. Bisacodyl. 9. Magnesium hydroxide. 10. Cholecalciferol. 11. Coreg. 12. Isosorbide mononitrate. 13. Hydralazine. 14. Aspirin. 15. Atorvastatin. 16. Lasix and 17. Potassium chloride. ALLERGIES: No known drug allergies. PAST MEDICAL HISTORY: Significant for atrial fibrillation not on anticoagulation, congestive heart failure with chronic systolic dysfunction as mentioned above, pulmonary hypertension, asthma, osteoarthritis, sleep apnea, uses CPAP machine, morbid obesity with BMI of around 72, ( ) infection, ear surgery. SOCIAL HISTORY: Former smoker. Quit smoking in 2002. Denied any alcohol abuse or any drug abuse. FAMILY HISTORY: Mother of colon cancer at age 54. Father of ( ) at age 60. PHYSICAL EXAMINATION: VITAL SIGNS: Temperature 97.5, pulse 92, respiratory rate of 18, blood pressure 130/80, saturating at 97% on room air. GENERAL: Patient is morbidly obese, alert and oriented x3. HEENT: Pupils are round and equally reacting to light. EOMI. No scleral icterus. No conjunctival pallor. Normocephalic, atraumatic. No pharyngeal erythema. No thyromegaly. CARDIOVASCULAR: Patient has minimally elevated JVD. PULMONARY: Chest is clear to auscultation, no wheezing or crackles. ABDOMEN: Soft, nontender, nondistended, normoactive bowel sounds. No palpable organomegaly. MUSCULOSKELETAL: No joint swelling or deformity. EXTREMITIES: Patient has pedal edema with chronic venostasis dermatosis and some skin hypertrophy from chronic venostasis, hypertrophic scars on the skin without any significant keloids. NEUROLOGICAL: Gross neurological examination did not reveal any focal deficits. SKIN: No rashes. LABORATORY DATA: CBC, CMP significant for low hemoglobin of 8.7. Patient's previous hemoglobin was around 9.5. During her last hospitalization, her potassium was 5.2 from CKD. BUN of 300, creatinine is now at 2.97. AST and ALT are very minimally elevated and troponin is 0.169. The EKG showed A. fib. changes consistent with A. fib. without any chronic acute ST-T wave changes. ASSESSMENT AND PLAN: 1. Possible upper gastrointestinal bleed secondary to gastritis. Patient is on Protonix IV twice a day, which will be continued. 2. Possible acute blood loss anemia from above. 3. Chronic anemia from anemia of chronic kidney disease. 4. Congestive heart failure. Patient is actually hypovolemic. Patient is receiving IV fluids, which will continue for up to 1 L and hold off on Lasix. 5. Moderate to severe pulmonary hypertension. 6. Obstructive sleep apnea. Uses continuous positive airway pressure machine, which will continue. 7. Morbid obesity contributing to obstructive sleep apnea and pulmonary hypertension. 8. Chronic kidney disease stage 3, probably due to hypertensive nephrosclerosis. 9. Hyperkalemia due to renal dysfunction. 10. Asthma, possible chronic obstructive pulmonary disease without any acute exacerbation. 11. Mildly elevated troponin secondary to renal dysfunction. Patient does not have any symptoms of chest pain at this point of time.
[2017-01-13 21:01] LABS: Creatine Kinase MB 0.9 ng/mL (0.0-2.4)
[2017-01-13] MEDS: ATORVASTATIN 40 MG TAB PO SCH (22:13)
[2017-01-13] MEDS: MENTHOL-ZINC OXIDE OINT 113 GM TUBE TOPICAL SCH (22:14)
[2017-01-13] MEDS: NITROGLYCERIN OINT 1 INCH/GM PACKET TOPICAL SCH (22:14)
[2017-01-13 22:15] LABS: Troponin I 0.208 ng/mL (0.000-0.034)
[2017-01-14 00:55] LABS: Creatine Kinase <20 U/L (30-135)
[2017-01-14 01:07] LABS: Creatine Kinase MB 0.9 ng/mL (0.0-2.4)
[2017-01-14 01:25] LABS: Troponin I 0.197 ng/mL (0.000-0.034)
[2017-01-14] MEDS: NITROGLYCERIN OINT 1 INCH/GM PACKET TOPICAL SCH (02:10)
[2017-01-14 07:04] LABS: Anisocytosis Slight; Basophils % (A) 1 %; CH 27.6; CHCM 29.5; Eosinophils # (A) 0.1 k/uL (0-0.7); Eosinophils % (A) 2 %; HCT 28.4 % (34.0-46.0); HDW 3.13; HGB 8.4 gm/dL (11.4-16.0); Hypochromasia Marked; Large Platelets Flag Slight; Luc # (Auto) 0.15; Luc % (Auto) 3; Lymphocytes # (A) 0.8 k/uL (1.0-4.8); Lymphocytes % (A) 13 %; MCH 27.8 pg (25.0-35.0); MCHC 29.5 g/dL (31.0-37.0); MCV 94.2 fL (80.0-100.0); Macrocytosis Slight; Monocytes # (A) 0.5 k/uL (0-1.0); Monocytes % (A) 8 %; Neutrophils # (A) 4.3 k/uL (1.3-7.7); Neutrophils % (A) 74 %; RBC 3.01 m/uL (3.80-5.40); RDW 19.6 % (11.5-15.5); WBC 5.9 k/uL (3.8-10.6); WBC (Perox) 5.99
[2017-01-14 07:55] LABS: Anion Gap 10 mmol/L; Blood Urea Nitrogen 76 mg/dL (7-17); Calcium 9.5 mg/dL (8.4-10.2); Carbon Dioxide 33 mmol/L (22-30); Chloride 103 mmol/L (98-107); Cholesterol <50 mg/dL (<200); Glucose 64 mg/dL (74-99); HDL Cholesterol 33 mg/dL (40-60); Potassium 5.3 mmol/L (3.5-5.1); Sodium 146 mmol/L (137-145); Triglycerides 39 mg/dL (<150)
[2017-01-14 07:57] LABS: Non-African American GFR(MDRD) 15 (>60 ml/min/1.73 sqM)
[2017-01-14] MEDS: MENTHOL-ZINC OXIDE OINT 113 GM TUBE TOPICAL SCH ×2 (08:15→20:17)
[2017-01-14] MEDS: CARVEDILOL 12.5 MG TAB PO SCH ×2 (08:15→18:05)
[2017-01-14] MEDS: ISOSORBIDE MONONITRATE ER 30 MG TAB.ER.24H PO SCH (08:15)
[2017-01-14] MEDS: ALLOPURINOL 100 MG TAB PO SCH (08:15)
--- NOTE | 2017-01-14 08:16 | P.NPCON ---
History of Present Illness - Reason for Consult acute renal failure - History of Present Illness Reason for consultation: Acute kidney injury History of present illness: Patient is a 66-year-old -[place] female seen in renal consultation for acute kidney injury on chronic kidney disease. Patient has chronic kidney disease stage III with baseline creatinine near 1.4 secondary to nephrosclerosis. Patient was recently admitted and at that time she was noted to have urinary retention. Patient was discharged to [facility] and had 3 episodes of coffee-ground emesis yesterday morning. She was subsequently sent to the hospital for further care. Her hemoglobin this morning is 8.4. Her renal function has also been worsening with creatinine at 3.14 today. She denies any chest pain or shortness of breath. Denies use of NSAIDs. Denies diarrhea. She is currently nothing by mouth. She has history of systolic CHF with ejection fraction of 45% with moderate pulmonary hypertension. States her urine output has been low but denies any hematuria or dysuria. Vital signs are stable. General: The patient appeared well nourished and normally developed. HEENT: Head exam is unremarkable. Neck is without jugular venous distension. LUNGS: Lungs are clear to auscultation and percussion. Breath sounds decreased. HEART: Rate and Rhythm are regular. First and second heart sounds normal. No murmurs, rubs or gallops. ABDOMEN: Abdominal exam reveals normal bowel sounds. Non-tender and non- distended. No evidence of peritonitis. EXTREMITITES: No clubbing, cyanosis, or edema. Chronic changes noted. Past Medical History Past Medical History: Atrial Fibrillation, Asthma, Heart Failure, Hypertension, Osteoarthritis (OA), Pneumonia, Sleep Apnea/CPAP/BIPAP Additional Past Medical History / Comment(s): BRUNILDA with CPAP, gout bilateral legs /feet, arthritis multiple joints, sinus problems, past left lower leg cellulitis and wound, UTIs. Morbid obesity History of Any Multi-Drug Resistant Organisms: None Reported Past Surgical History: Section, Ear Surgery Additional Past Surgical History / Comment(s): Debridement bilateral pedal toenails, colonoscopy-normal, L ear benign tumor removed, x 2. pt currently resides at [facility] Past Anesthesia/Blood Transfusion Reactions: No Reported Reaction Past Psychological History: No Psychological Hx Reported Additional Psychological History / Comment(s): Lives at [facility] Smoking Status: Former smoker Past Alcohol Use History: Rare Additional Past Alcohol Use History / Comment(s): Pt states she started smoking in 1970 and quit in 2002 Past Drug Use History: None Reported - Past Family History Mother Family Medical History: Cancer Additional Family Medical History / Comment(s): Mother of colon cancer at the age of 54 yrs. Father Family Medical History: Myocardial Infarction ([place]) Additional Family Medical History / Comment(s): Father of a massive [place] at the age of 60 yrs. Medications and Allergies Home Medications Medication Instructions Recorded Confirmed Type Albuterol Inhaler [Ventolin Hfa 2 puff INHALATION RT-Q4H PRN 12/19/16 01/13/17 History Inhaler] Allopurinol [Zyloprim] 300 mg PO DAILY 12/19/16 01/13/17 History Ammonium Lactate Lotion 1 applic TOPICAL TID 12/19/16 01/13/17 History [Lac-Hydrin 12% Lotion] Ferrous Sulfate [Iron (65 MG 325 mg PO DAILY 12/19/16 01/13/17 History Elemental)] Folic Acid 1 mg PO DAILY 12/19/16 01/13/17 History Ipratropium-Albuterol Nebulize 3 ml INHALATION RT-QID 12/19/16 01/13/17 History [Duoneb 0.5 mg-3 mg/3 ml Soln] Acetaminophen Tab [Tylenol] 650 mg PO Q4H PRN 12/25/16 01/13/17 History Bisacodyl 10 mg RECTAL DAILY PRN 12/25/16 01/13/17 History Magnesium Hydroxide [Milk of 2,400 mg PO DAILY PRN 12/25/16 01/13/17 History Magnesia] Cholecalciferol [Vitamin D3] 2,000 unit PO DAILY 12/30/16 01/13/17 History Na Phos,M-B/Na Phos,Di-Ba [Fleet 133 ml RECTAL DAILY PRN 12/30/16 01/13/17 History Adult] Menthol/Zinc Oxide [Calmoseptine 1 applic TOPICAL BID 01/13/17 01/13/17 History Ointment] Allergies Allergy/AdvReac Type Severity Reaction Status Date / Time No Known Allergies Allergy Verified 01/13/17 13:32 Physical Exam Vitals: Vital Signs Temp Pulse Pulse Resp BP BP Pulse Ox 01/14/17 04:00 97 F L 80 20 116/74 92 L 01/14/17 00:00 76 18 114/69 94 L 01/13/17 20:00 97.3 F L 83 20 112/53 93 L 01/13/17 16:26 84 01/13/17 16:22 80 01/13/17 16:00 86 19 112/69 93 L 01/13/17 15:19 97 01/13/17 14:59 97.5 F L 82 18 100/65 95 01/13/17 14:34 97.6 F 01/13/17 14:16 72 18 130/80 100 Intake and Output 01/13/17 01/14/17 01/14/17 22:59 06:59 14:59 Intake Total 420 880 Balance 420 880 Intake: IV 220 880 Sodium Chloride 0.9% 1, 220 880 000 ml @ 110 mls/hr IV . Q9H6M [facility] Rx#:[id number] Oral 200 Other: Voiding Method Diaper Bedpan # Voids 2 Results - Lab Results Most recent lab results Calcium 9.5 mg/dL (8.4-10.2) 01/14/17 06:17 01/14/17 06:17 01/14/17 06:17 Assessment and Plan Plan: Assessment: #1. Nonoliguric acute kidney injury secondary to ATN secondary to vomiting and diaphoresis. Creatinine elevated at 3.14 today. Rule out urinary retention. #2. Chronic kidney disease stage III secondary to nephrosclerosis with baseline creatinine near 1.4. Recent urinalysis and ultrasound noted to be benign. #3. Systolic CHF with ejection fraction of 45% with moderate pulmonary hypertension. Compensated. #4. Anemia. Possible underlying upper GI bleed. Rule out iron deficiency. #5. History of urinary retention. Plan: Continue normal saline to be run at 100 mL an hour. Check postvoid residual and insert Arteaga catheter for strict I's and O's. Check iron studies. Advance diet per GI recommendations. Repeat electrolytes in the morning. Repeat urinalysis. Avoid nephrotoxic agents and hypotensive episodes. Hold diuretics for now. Thank you for the consultation. I will continue to follow the patient with you during her hospital stay.
[2017-01-14] MEDS: IPRATROPIUM-ALBUTEROL 3 ML NEB INHALATION SCH ×4 (08:22→19:42)
[2017-01-14 08:45] LABS: Polychromasia Present; Toxic Vacuolation Present
[2017-01-14] MEDS ORDERED: ALLOPURINOL 300 MG TAB PO SCH (09:00)
[2017-01-14] MEDS ORDERED: ASPIRIN 81 MG CHEW PO SCH (09:00)
[2017-01-14 10:46] LABS: % Iron Saturation 9.1 % (20-50)
--- NOTE | 2017-01-14 11:31 | P.CRDCN ---
History of Present Illness Consult date: 01/14/17 History of present illness: This is a pleasant 66-year-old -[place] female patient with a past medical history significant for morbid obesity, chronic kidney disease, systemic hypertension, as well as chronic atrial fibrillation, was brought from a rehab facility to the hospital for possible upper GI bleeding. The patient was found to have a black stool. Also she had multiple episodes of vomiting black material. She did not have any dizziness or lightheadedness. She did not have any symptoms of chest pain or discomfort. The EKG showed atrial fibrillation with nonspecific changes in the inferior leads. Looks slightly worse compared to before. The cardiac enzymes were checked and came in to be slightly abnormal. As a mentioned earlier the patient did not have any symptoms of chest pain or discomfort. Beside that, currently the patient seems to be hemodynamically stable and asymptomatic. The abnormal cardiac enzymes is likely secondary to the anemia as well as chronic kidney disease. I with consider medical treatment at this point. The patient is on beta shira and statin we will continue that. We'll continue holding the aspirin to the patient seen and evaluated by the GI service. Past Medical History Past Medical History: Atrial Fibrillation, Asthma, Heart Failure, Hypertension, Osteoarthritis (OA), Pneumonia, Sleep Apnea/CPAP/BIPAP Additional Past Medical History / Comment(s): BRUNILDA with CPAP, gout bilateral legs /feet, arthritis multiple joints, sinus problems, past left lower leg cellulitis and wound, UTIs. Morbid obesity History of Any Multi-Drug Resistant Organisms: None Reported Past Surgical History: Section, Ear Surgery Additional Past Surgical History / Comment(s): Debridement bilateral pedal toenails, colonoscopy-normal, L ear benign tumor removed, x 2. pt currently resides at [facility] Past Anesthesia/Blood Transfusion Reactions: No Reported Reaction Past Psychological History: No Psychological Hx Reported Additional Psychological History / Comment(s): Lives at [facility] Smoking Status: Former smoker Past Alcohol Use History: Rare Additional Past Alcohol Use History / Comment(s): Pt states she started smoking in 1970 and quit in 2002 Past Drug Use History: None Reported - Past Family History Mother Family Medical History: Cancer Additional Family Medical History / Comment(s): Mother of colon cancer at the age of 54 yrs. Father Family Medical History: Myocardial Infarction ([place]) Additional Family Medical History / Comment(s): Father of a massive [place] at the age of 60 yrs. Medications and Allergies Home Medications Medication Instructions Recorded Confirmed Type Albuterol Inhaler [Ventolin Hfa 2 puff INHALATION RT-Q4H PRN 12/19/16 01/13/17 History Inhaler] Allopurinol [Zyloprim] 300 mg PO DAILY 12/19/16 01/13/17 History Ammonium Lactate Lotion 1 applic TOPICAL TID 12/19/16 01/13/17 History [Lac-Hydrin 12% Lotion] Ferrous Sulfate [Iron (65 MG 325 mg PO DAILY 12/19/16 01/13/17 History Elemental)] Folic Acid 1 mg PO DAILY 12/19/16 01/13/17 History Ipratropium-Albuterol Nebulize 3 ml INHALATION RT-QID 12/19/16 01/13/17 History [Duoneb 0.5 mg-3 mg/3 ml Soln] Acetaminophen Tab [Tylenol] 650 mg PO Q4H PRN 12/25/16 01/13/17 History Bisacodyl 10 mg RECTAL DAILY PRN 12/25/16 01/13/17 History Magnesium Hydroxide [Milk of 2,400 mg PO DAILY PRN 12/25/16 01/13/17 History Magnesia] Cholecalciferol [Vitamin D3] 2,000 unit PO DAILY 12/30/16 01/13/17 History Na Phos,M-B/Na Phos,Di-Ba [Fleet 133 ml RECTAL DAILY PRN 12/30/16 01/13/17 History Adult] Menthol/Zinc Oxide [Calmoseptine 1 applic TOPICAL BID 01/13/17 01/13/17 History Ointment] Allergies Allergy/AdvReac Type Severity Reaction Status Date / Time No Known Allergies Allergy Verified 01/13/17 13:32 Physical Exam Vitals: Vital Signs Temp Pulse Pulse Resp BP BP Pulse Ox 01/14/17 08:35 88 01/14/17 08:24 80 01/14/17 08:00 97 F L 83 19 120/84 92 L 01/14/17 04:00 97 F L 80 20 116/74 92 L 01/14/17 00:00 76 18 114/69 94 L 01/13/17 20:00 97.3 F L 83 20 112/53 93 L 01/13/17 16:26 84 01/13/17 16:22 80 01/13/17 16:00 86 19 112/69 93 L 01/13/17 15:19 97 01/13/17 14:59 97.5 F L 82 18 100/65 95 01/13/17 14:34 97.6 F 01/13/17 14:16 72 18 130/80 100 Intake and Output 01/13/17 01/14/17 01/14/17 22:59 06:59 14:59 Intake Total 420 880 110 Balance 420 880 110 Intake: IV 220 880 110 Sodium Chloride 0.9% 1 220 880 110 000 ml @ 110 mls/hr IV . Q9H6M [facility] Rx#:[id number] Oral 200 Other: Voiding Method Diaper Bedpan Incontinent # Voids 2 1 # Bowel Movements 0 - Constitutional General appearance: no acute distress - Respiratory Respiratory: bilateral: diminished - Cardiovascular Rhythm: irregularly irregular Heart sounds: normal: S1, S2 Results 01/14/17 06:17 01/14/17 06:17 Cardiac Enzymes 01/13/17 01/14/17 Range/Units 20:09 00:23 CK-MB (CK-2) 0.9 0.9 (0.0-2.4) ng/mL Troponin I 0.208 H* 0.197 H* (0.000-0.034) ng/mL Lipids 01/14/17 Range/Units 06:17 Triglycerides 39 (<150) mg/dL Cholesterol <50 (<200) mg/dL HDL Cholesterol 33 L (40-60) mg/dL CBC 01/14/17 Range/Units 06:17 WBC 5.9 (3.8-10.6) k/uL RBC 3.01 L (3.80-5.40) m/uL Hgb 8.4 L (11.4-16.0) gm/dL Hct 28.4 L (34.0-46.0) % Plt Count 116 L (150-450) k/uL Comprehensive Metabolic Panel 01/14/17 Range/Units 06:17 Sodium 146 H (137-145) mmol/L Potassium 5.3 H (3.5-5.1) mmol/L Chloride 103 (98-107) mmol/L Carbon Dioxide 33 H (22-30) mmol/L BUN 76 H (7-17) mg/dL Creatinine 3.14 H (0.52-1.04) mg/dL Glucose 64 L (74-99) mg/dL Calcium 9.5 (8.4-10.2) mg/dL Current Medications Generic Name Dose Route Start Last Admin Trade Name Freq PRN Reason Stop Dose Admin Acetaminophen 650 mg 01/13/17 15:40 Tylenol Tab PO Q4H PRN Fever and/ or Pain Albuterol Sulfate 2.5 mg 01/13/17 15:40 Ventolin Nebulized INHALATION RT-Q4H PRN Shortness Of Breath Albuterol/Ipratropium 3 ml 01/13/17 16:00 01/14/17 08:22 Duoneb 0.5 Mg-3 Mg/3 Ml Soln INHALATION 3 ml RT-QID [facility] Administration Allopurinol 100 mg 01/14/17 09:00 01/14/17 08:15 Zyloprim PO 100 mg DAILY [facility] Administration Atorvastatin Calcium 40 mg 01/13/17 21:00 01/13/17 22:13 Lipitor PO Not Given HS [facility] Bisacodyl 10 mg 01/13/17 15:40 Dulcolax RECTAL DAILY PRN Constipation Calamine/Phenol 1 applic 01/13/17 21:00 01/14/17 08:15 Risamine Oint TOPICAL 1 applic BID [facility] Administration Carvedilol 25 mg 01/13/17 17:30 01/14/17 08:15 Coreg PO 25 mg BID-W/MEALS [facility] Administration Isosorbide Mononitrate 30 mg 01/14/17 09:00 01/14/17 08:15 Imdur PO 30 mg DAILY [facility] Administration Magnesium Hydroxide 2,400 mg 01/13/17 15:40 Milk Of Magnesia PO DAILY PRN Constipation Naloxone HCl 0.2 mg 01/13/17 13:42 Narcan IV Q2M PRN Opioid Reversal Nitroglycerin 0.4 mg 01/13/17 13:42 Nitrostat SUBLINGUAL Q5M PRN Chest Pain Pantoprazole Sodium 40 mg 01/14/17 09:00 Protonix IV DAILY [facility] Intake and Output 01/13/17 01/14/17 01/14/17 22:59 06:59 14:59 Intake Total 420 880 110 Balance 420 880 110 Intake: IV 220 880 110 Sodium Chloride 0.9% 1, 220 880 110 000 ml @ 110 mls/hr IV . Q9H6M [facility] Rx#:[id number] Oral 200 Other: Voiding Method Diaper Bedpan Incontinent # Voids 2 1 # Bowel Movements 0 01/14/17 06:17 01/14/17 06:17 Assessment and Plan Plan: Assessment #1 possible GI bleeding #2 anemia #3 chronic kidney disease #4 mildly abnormal cardiac enzymes #5 systemic hypertension #6 morbid obesity Plan #1 conservative medical approach at this point of time #2 continue the beta shira and statin #3 continue holding the aspirin to the patient evaluated by the GI service #4 follow-up with the patient
[2017-01-14] MEDS: PANTOPRAZOLE 40 MG/10 ML VIAL IV SCH (12:23)
[2017-01-14 16:17] LABS: Amorphous Sediment,Urine Few /hpf; Appearance,Urine Turbid (Clear); Bilirubin,Urine Negative (Negative); Glucose,Urine (UA) Negative (Negative); Ketones,Urine Negative (Negative); Leukocyte Esterase,Urine Negative (Negative); Nitrite,Urine Negative (Negative); Particle Count 18003; Protein,Urine 1+ (Negative); Specific Gravity,Urine 1.011 (1.001-1.035); Squamous Epithelial Cell,Urine 5 /hpf (0-4); UA Billing (MACRO vs. MICRO) MICRO; Urobilinogen,Urine <2.0 mg/dL (<2.0); WBC,Urine 3 /hpf (0-5)
[2017-01-14] MEDS: ATORVASTATIN 40 MG TAB PO SCH (20:17)
--- NOTE | 2017-01-15 03:55 | P.CONS ---
History of Present Illness - Reason for Consult Consult date: 01/14/17 Coffee ground emesis. - Chief Complaint Coffee ground emesis. - History of Present Illness The patient is a 66-year old female with multiple medical problems including history of morbid obesity, was sent to ER from the [facility] because of three episodes of coffee ground emesis. Stools reportedly dark. Patient had a recent Hb of 10.2 and it was 8.7 on arrival to ER. Denied history of UGI complaints. Has history of atrial fibrillation, stage III chronic kidney disease secondary to nephrosclerosis with baseline Cr 1.4 and history of pulmonary HTN and CHF with EF of 40-45%. Apparently was having vaginal bleeding that has been improving and was recently hospitalized for urinary retention. Nurse indicated that the patient had no manifestations of active bleeding after admission. She had a small smear of dark/black stools noted when she was vleaning her perianal area. Review of Systems Constitutional: Denies fever, chills, sweats, weight gain, or loss. HEENT: Negative for migraines, blurred vision or loss, earaches, drainage, tinnitus, oral mucosal lesions, dysphagia, or odynophagia. CARDIAC: Negative for chest pain, arrhythmias, or palpitations. History AFib and CHF RESPIRATORY: Negative for shortness of breath, hemoptysis, cough, or sputum production. History of asthma and BRUNILDA GI: See HPI for pertinent findings. : Negative for hematuria, urgency, frequency, polyuria, or dysuria. BUILDING SPECIALIST: History of vaginal discharge. MUSCULOSKELETAL: Degenerative joint disease and history of gout. NEUROLOGIC: Negative for stroke or TIA. ENDOCRINE: Negative for thyroid problems. SKIN: Negative for rash or itching. PSYCHIATRIC: Negative history for depression and anxiety Past Medical History Past Medical History: Atrial Fibrillation, Asthma, Heart Failure, Hypertension, Osteoarthritis (OA), Pneumonia, Sleep Apnea/CPAP/BIPAP Additional Past Medical History / Comment(s): BRUNILDA with CPAP, gout bilateral legs /feet, arthritis multiple joints, sinus problems, past left lower leg cellulitis and wound, UTIs. Morbid obesity History of Any Multi-Drug Resistant Organisms: None Reported Past Surgical History: Section, Ear Surgery Additional Past Surgical History / Comment(s): Debridement bilateral pedal toenails, colonoscopy-normal, L ear benign tumor removed, x 2. pt currently resides at [facility] Past Anesthesia/Blood Transfusion Reactions: No Reported Reaction Past Psychological History: No Psychological Hx Reported Additional Psychological History / Comment(s): Lives at [facility] Smoking Status: Former smoker Past Alcohol Use History: Rare Additional Past Alcohol Use History / Comment(s): Pt states she started smoking in 1970 and quit in 2002 Past Drug Use History: None Reported - Past Family History Mother Family Medical History: Cancer Additional Family Medical History / Comment(s): Mother of colon cancer at the age of 54 yrs. Father Family Medical History: Myocardial Infarction ([place]) Additional Family Medical History / Comment(s): Father of a massive [place] at the age of 60 yrs. Medications and Allergies Home Medications Medication Instructions Recorded Confirmed Type Albuterol Inhaler [Ventolin Hfa 2 puff INHALATION RT-Q4H PRN 12/19/16 01/13/17 History Inhaler] Allopurinol [Zyloprim] 300 mg PO DAILY 12/19/16 01/13/17 History Ammonium Lactate Lotion 1 applic TOPICAL TID 12/19/16 01/13/17 History [Lac-Hydrin 12% Lotion] Ferrous Sulfate [Iron (65 MG 325 mg PO DAILY 12/19/16 01/13/17 History Elemental)] Folic Acid 1 mg PO DAILY 12/19/16 01/13/17 History Ipratropium-Albuterol Nebulize 3 ml INHALATION RT-QID 12/19/16 01/13/17 History [Duoneb 0.5 mg-3 mg/3 ml Soln] Acetaminophen Tab [Tylenol] 650 mg PO Q4H PRN 12/25/16 01/13/17 History Bisacodyl 10 mg RECTAL DAILY PRN 12/25/16 01/13/17 History Magnesium Hydroxide [Milk of 2,400 mg PO DAILY PRN 12/25/16 01/13/17 History Magnesia] Cholecalciferol [Vitamin D3] 2,000 unit PO DAILY 12/30/16 01/13/17 History Na Phos,M-B/Na Phos,Di-Ba [Fleet 133 ml RECTAL DAILY PRN 12/30/16 01/13/17 History Adult] Menthol/Zinc Oxide [Calmoseptine 1 applic TOPICAL BID 01/13/17 01/13/17 History Ointment] Allergies Allergy/AdvReac Type Severity Reaction Status Date / Time No Known Allergies Allergy Verified 01/13/17 13:32 Physical Exam Vitals: Vital Signs Temp Pulse Pulse Resp BP Pulse Ox 01/14/17 20:25 96.8 F L 80 20 106/50 92 L 01/14/17 16:00 97 F L 69 20 138/69 96 01/14/17 15:39 80 01/14/17 15:24 80 01/14/17 12:03 88 01/14/17 12:00 91 19 116/74 2 L 01/14/17 11:43 84 01/14/17 08:35 88 01/14/17 08:24 80 01/14/17 08:00 97 F L 83 19 120/84 92 L 01/14/17 04:00 97 F L 80 20 116/74 92 L 01/14/17 00:00 76 18 114/69 94 L Intake and Output 01/14/17 01/14/17 01/15/17 14:59 22:59 06:59 Intake Total 110 Output Total 100 Balance 110 -100 Intake: IV 110 Sodium Chloride 0.9% 1, 110 000 ml @ 110 mls/hr IV . Q9H6M [facility] Rx#:[id number] Output: Urine 100 Other: Voiding Method Incontinent Incontinent # Voids 1 1 # Bowel Movements 0 General appearance: The patient is very pleasant, alert, oriented, in no acute distress. HET: Head is normocephalic and atraumatic. Pupils are equal and reactive. Oropharynx is clear without lesions. Neck: Supple without lymphadenopathy. Trachea midline. Heart: Irregular, normal S1 S2. Lungs: No crackles or wheezes. Abdomen: Obese, soft, nontender, nondistended with bowel sounds. No peritoneal signs. No palpable organomegaly or masses. Extremities: Significant edema and chronic stasis changes. Radial and pedal pulses are 2/4 bilaterally. Neurological: No focal deficits. Strength and sensation are grossly intact. Results CBC & Chem 7: 01/14/17 06:17 01/14/17 06:17 Labs: Abnormal Lab Results - Last 24 Hours (Table) 01/14/17 01/14/17 01/14/17 Range/Units 00:23 06:17 06:17 RBC 3.01 L (3.80-5.40) m/uL Hgb 8.4 L (11.4-16.0) gm/dL Hct 28.4 L (34.0-46.0) % MCHC 29.5 L (31.0-37.0) g/dL RDW 19.6 H (11.5-15.5) % Plt Count 116 L (150-450) k/uL Lymphocytes # 0.8 L (1.0-4.8) k/uL Sodium 146 H (137-145) mmol/L Potassium 5.3 H (3.5-5.1) mmol/L Carbon Dioxide 33 H (22-30) mmol/L BUN 76 H (7-17) mg/dL Creatinine 3.14 H (0.52-1.04) mg/dL Glucose 64 L (74-99) mg/dL Iron (37-170) ug/dL % Saturation (20-50) % Total Creatine Kinase <20 L (30-135) U/L Troponin I 0.197 H* (0.000-0.034) ng/mL HDL Cholesterol 33 L (40-60) mg/dL Urine Appearance (Clear) Urine Protein (Negative) Ur Squamous Epith Cells (0-4) /hpf Amorphous Sediment (None) /hpf Hyaline Casts (0-2) /lpf 01/14/17 01/14/17 Range/Units 06:17 15:40 RBC (3.80-5.40) m/uL Hgb (11.4-16.0) gm/dL Hct (34.0-46.0) % MCHC (31.0-37.0) g/dL RDW (11.5-15.5) % Plt Count (150-450) k/uL Lymphocytes # (1.0-4.8) k/uL Sodium (137-145) mmol/L Potassium (3.5-5.1) mmol/L Carbon Dioxide (22-30) mmol/L BUN (7-17) mg/dL Creatinine (0.52-1.04) mg/dL Glucose (74-99) mg/dL Iron 26 L (37-170) ug/dL % Saturation 9.1 L (20-50) % Total Creatine Kinase (30-135) U/L Troponin I (0.000-0.034) ng/mL HDL Cholesterol (40-60) mg/dL Urine Appearance Turbid H (Clear) Urine Protein 1+ H (Negative) Ur Squamous Epith Cells 5 H (0-4) /hpf Amorphous Sediment Few H (None) /hpf Hyaline Casts 16 H (0-2) /lpf Microbiology - Last 24 Hours (Table) 01/14/17 15:40 Urine Culture - Preliminary Urine,Catheterized Assessment and Plan Plan: GI bleeding and anemia likely related to gastritis or PUD. Patient has multiple co-morbid conditions. Was evaluated by cardiology for elevated troponins and nephrology for increased Cr of 3.14. The patient is already on protonix and is not manifesting active bleeding at this time. Will allow clear liquid diet and consider EGD in the next 24-48 hours based on her overall condition and risk for conscious sedation. I will discuss with you and follow with you with interest.
[2017-01-15] MEDS: CARVEDILOL 12.5 MG TAB PO SCH ×2 (06:16→18:04)
[2017-01-15 07:27] LABS: Calcium 9.5 mg/dL (8.4-10.2); Potassium 4.8 mmol/L (3.5-5.1)
[2017-01-15] MEDS: ALLOPURINOL 100 MG TAB PO SCH (07:56)
[2017-01-15] MEDS: ISOSORBIDE MONONITRATE ER 30 MG TAB.ER.24H PO SCH (07:57)
[2017-01-15] MEDS: PANTOPRAZOLE 40 MG/10 ML VIAL IV SCH (07:57)
[2017-01-15] MEDS: IPRATROPIUM-ALBUTEROL 3 ML NEB INHALATION SCH ×4 (08:41→19:13)
--- NOTE | 2017-01-15 09:18 | P.PN ---
Subjective Patient is seen in follow-up for acute kidney injury on chronic kidney disease. Patient has chronic kidney disease stage III with baseline creatinine near 1.4 secondary to nephrosclerosis. Patient presented with coffee-ground emesis. She hasn't had any vomiting for the last 24 hours. Renal function is worsening with creatinine at 3.14 today. Her fluids have been discontinued. Denies any chest pain or shortness of breath. Vital signs are stable. General: The patient appeared well nourished and normally developed. HEENT: Head exam is unremarkable. Neck is without jugular venous distension. LUNGS: Lungs are clear to auscultation and percussion. Breath sounds decreased. HEART: Rate and Rhythm are regular. First and second heart sounds normal. No murmurs, rubs or gallops. ABDOMEN: Abdominal exam reveals normal bowel sounds. Non-tender and non- distended. No evidence of peritonitis. EXTREMITITES: Chronic changes. Objective - Vital Signs Vital signs: Vital Signs Temp 97.5 F L 01/15/17 08:00 Pulse 72 01/15/17 08:56 Resp 18 01/15/17 08:00 BP 109/66 01/15/17 08:00 Pulse Ox 95 01/15/17 08:00 Intake & Output 01/14/17 01/15/17 01/15/17 18:59 06:59 18:59 Intake Total 110 150 Output Total 100 Balance 10 150 Intake: IV 110 Sodium Chloride 0.9% 1, 110 000 ml @ 110 mls/hr IV . Q9H6M [facility] Rx#:[id number] Oral 150 Output: Urine 100 Other: Voiding Method Incontinent Incontinent Incontinent # Voids 1 # Bowel Movements 0 - Labs CBC & Chem 7: 01/14/17 06:17 01/15/17 06:38 Labs: Abnormal Lab Results - Last 24 Hours (Table) 01/14/17 01/14/17 01/15/17 Range/Units 06:17 15:40 06:38 Sodium 146 H (137-145) mmol/L Carbon Dioxide 32 H (22-30) mmol/L BUN 74 H (7-17) mg/dL Creatinine 3.24 H (0.52-1.04) mg/dL Glucose 68 L (74-99) mg/dL Iron 26 L (37-170) ug/dL % Saturation 9.1 L (20-50) % Urine Appearance Turbid H (Clear) Urine Protein 1+ H (Negative) Ur Squamous Epith Cells 5 H (0-4) /hpf Amorphous Sediment Few H (None) /hpf Hyaline Casts 16 H (0-2) /lpf Microbiology - Last 24 Hours (Table) 01/14/17 15:40 Urine Culture - Preliminary Urine,Catheterized Assessment and Plan Plan: Assessment: #1. Nonoliguric acute kidney injury secondary to ATN secondary to vomiting and diaphoresis. Creatinine elevated at 3.24 today. Rule out urinary retention. #2. Chronic kidney disease stage III secondary to nephrosclerosis with baseline creatinine near 1.4. Recent urinalysis and ultrasound noted to be benign. #3. Systolic CHF with ejection fraction of 45% with moderate pulmonary hypertension. Compensated. #4. Anemia. Possible underlying upper GI bleed. Iron deficiency present. #5. History of urinary retention. Plan: Resume normal saline to be run at 50 mL an hour. Will Hep-Lock IV fluids as oral intake improves. Check postvoid residual and insert Arteaga catheter for strict I's and O's. Ferrlecit 125 mg IV daily for 3 days. First dose today. Advance diet per GI recommendations. Repeat electrolytes in the morning. Avoid nephrotoxic agents and hypotensive episodes. Hold diuretics for now.
[2017-01-15] MEDS: SODIUM FERRIC GLUCONAT-SUCROSE 125 MG in SODIUM CHLORIDE 0.9% 100 ML IVPB SCH (10:09)
--- NOTE | 2017-01-15 10:29 | ECHOF ---
Referral Reason:ELEVATED TROP MEASUREMENTS -------- HEIGHT: 165.1 cm WEIGHT: 197.3 kg BP: RVIDd: 3.9 cm (< 3.3) IVSd: 1.2 cm (0.6 - 1.1) LVIDd: 4.5 cm (3.9 - 5.3) LVPWd: 1.5 cm (0.6 - 1.1) IVSs: 1.5 cm LVIDs: 3.8 cm LVPWs: 1.4 cm LA Diam: 3.5 cm (2.7 - 3.8) Ao Diam: 3.3 cm (2.0 - 3.7) AV Cusp: 1.7 cm (1.5 - 2.6) LA Diam: 5.1 cm (2.7 - 3.8) MV EXCURSION: 19.523 mm (> 18.000) MV EF SLOPE: 73 mm/s (70 - 150) EPSS: 0.5 cm MV E Silver: 0.52 m/s MV DecT: 455 ms MV A Silver: 0.78 m/s MV E/A Ratio: 0.67 RAP: 5.00 mmHg RVSP: 36.84 mmHg FINDINGS -------- Sinus rhythm. Morbid Obesity This was a techncally difficult study with suboptimal views, , Definity utilized for enhancement of images. There is mild concentric left ventricular hypertrophy. Overall left ventricular systolic function is low-normal with, an EF between 50 - 55 %. The right ventricle is moderately enlarged. The left atrial size is normal. The right atrial size is normal. 1.5MG OF DEFINITY UTLIZED: 2 OR MORE WALL SEGMENTS NOT VISUALIZED. There is mild aortic valve sclerosis. There is no evidence of aortic regurgitation. Mild mitral annular calcification present. Mild mitral regurgitation is present. Mild tricuspid regurgitation present. There is mild pulmonary hypertension. The right ventricular systolic pressure, as measured by Doppler, is 36.84mmHg. There is no pulmonic regurgitation present. The aortic root size is normal. There is no pericardial effusion. CONCLUSIONS -------- 1. Morbid Obesity 2. Mild tricuspid regurgitation present. 3. There is mild pulmonary hypertension. 4. The right ventricular systolic pressure, as measured by Doppler, is 36.84mmHg. 5. This was a techncally difficult study with suboptimal views, , Definity utilized for enhancement of images. 6. There is mild concentric left ventricular hypertrophy. 7. Overall left ventricular systolic function is low-normal with, an EF between 50 - 55 %. 8. The right ventricle is moderately enlarged. 9. 1.5MG OF DEFINITY UTLIZED: 2 OR MORE WALL SEGMENTS NOT VISUALIZED. 10. There is mild aortic valve sclerosis. 11. Mild mitral annular calcification present. 12. Mild mitral regurgitation is present. DERRICK MAN: Melissa Medina RDCS
--- NOTE | 2017-01-15 11:01 | PN ---
Patient is a 66-year-old admitted with upper GI bleed, probably secondary to peptic ulcer disease and GI to evaluate the patient. Patient has worsening renal function because of which Nephrology evaluated the patient. They believe patient has prerenal azotemia as well as acute tubular necrosis and patient is being continued on IV fluids. REVIEW OF SYSTEMS: CARDIOVASCULAR: No chest pain, no orthopnea, no PND, no palpitations. PULMONARY: Denied any shortness of breath. No cough or hemoptysis. GASTROINTESTINAL: No diarrhea, nausea or vomiting. No abdominal pain. Normoactive bowel sounds. NEUROLOGIC: No headaches, no weakness, no numbness. Medications were reviewed. PHYSICAL EXAMINATION: VITAL SIGNS: Temperature 97.0, pulse of 80, respiratory rate of 20, blood pressure 138/60, saturating at 96% on 2 L of O2 by nasal cannula. GENERAL: Morbidly obese, alert and oriented x3. EXTREMITIES: No significant change compared to yesterday. Chronic venostasis dermatosis and hypertrophic scars. HEENT: Pupils are round and equally reacting to light. EOMI. No scleral icterus. No conjunctival pallor. Normocephalic, atraumatic. No pharyngeal erythema. No thyromegaly. CARDIOVASCULAR: S1 and S2 present. No murmurs, rubs, or gallops. PULMONARY: Chest is clear to auscultation, no wheezing or crackles. ABDOMEN: Soft, nontender, nondistended, normoactive bowel sounds. No palpable organomegaly. MUSCULOSKELETAL: No joint swelling or deformity. NEUROLOGICAL: Gross neurological examination did not reveal any focal deficits. SKIN: No rashes. LABORATORY DATA: No significant drop in hemoglobin was appreciated. Potassium is 5.3 due to renal dysfunction. Patient's BUN and creatinine are elevated to 76 and 3.14. ASSESSMENT AND PLAN: 1. Possible upper gastrointestinal bleed secondary to gastritis or peptic ulcer disease and Gastroenterology will evaluate the patient. 2. Possible acute blood loss anemia, patient's hemoglobin today is stable. 3. Anemia of chronic kidney disease, congestive heart failure, mild systolic dysfunction. Patient in the hypovolemic side. Time to hold off on diuretic therapy. Mildly depressed ejection fraction of around 45%. 4. Obstructive sleep apnea. 5. Chronic kidney disease stage III probably secondary to hypertensive nephrosclerosis. 6. Hyperkalemia. 7. Asthma secondary to chronic obstructive pulmonary disease without any acute exacerbation. 8. Mildly elevated troponin secondary to renal dysfunction.
[2017-01-15] MEDS: MENTHOL-ZINC OXIDE OINT 113 GM TUBE TOPICAL SCH (11:26)
--- NOTE | 2017-01-15 12:22 | PN ---
66-year-old lady is admitted to hospital with GI bleed, anemia, chronic kidney disease, and mildly elevated troponins. She had an echo done that showed normal LV systolic function. At the time of my evaluation this morning, she appears comfortable at rest, morbidly obese. Chest exam reveals diminished air entry bilaterally. Heart exam reveals first and second heart sounds. No gallop. Exam of the extremities reveals chronic stasis changes. Mild edema. Labs show that potassium is 4.8. Troponins were 0.2 and 0.1. Creatinine is 3.2. ASSESSMENT: 1. Mild troponin probably secondary to underlying renal insufficiency. 2. Morbid obesity. 3. Chronic renal failure. 4. Chronic atrial fibrillation. PLAN: Patient is not a candidate for long-term anticoagulation at this time because of GI bleed. I will continue her on her current medications including the Lipitor, Imdur, Coreg.
[2017-01-15] MEDS: ATORVASTATIN 40 MG TAB PO SCH (21:46)
[2017-01-16] MEDS: MENTHOL-ZINC OXIDE OINT 113 GM TUBE TOPICAL SCH ×3 (04:39→21:40)
[2017-01-16] MEDS: CARVEDILOL 12.5 MG TAB PO SCH ×2 (06:46→16:57)
[2017-01-16 06:48] LABS: Calcium 9.2 mg/dL (8.4-10.2); Potassium 4.6 mmol/L (3.5-5.1)
[2017-01-16] MEDS: IPRATROPIUM-ALBUTEROL 3 ML NEB INHALATION SCH ×4 (07:38→20:20)
[2017-01-16] MEDS: ISOSORBIDE MONONITRATE ER 30 MG TAB.ER.24H PO SCH (09:23)
[2017-01-16] MEDS: PANTOPRAZOLE 40 MG/10 ML VIAL IV SCH (09:23)
[2017-01-16] MEDS: ALLOPURINOL 100 MG TAB PO SCH (09:23)
[2017-01-16] MEDS: SODIUM FERRIC GLUCONAT-SUCROSE 125 MG in SODIUM CHLORIDE 0.9% 100 ML IVPB SCH (09:23)
--- NOTE | 2017-01-16 09:23 | P.PN ---
Subjective Patient is seen in follow-up for acute kidney injury on chronic kidney disease. Patient has chronic kidney disease stage III with baseline creatinine near 1.4 secondary to nephrosclerosis. Patient presented with coffee-ground emesis. Denies any nausea or vomiting this admission. Renal function is improved with creatinine at 2.9 today. Denies any chest pain or shortness of breath. She has been tolerating clear liquid diet. Admits to good urine output. Vital signs are stable. General: The patient appeared well nourished and normally developed. HEENT: Head exam is unremarkable. Neck is without jugular venous distension. LUNGS: Lungs are clear to auscultation and percussion. Breath sounds decreased. HEART: Rate and Rhythm are regular. First and second heart sounds normal. No murmurs, rubs or gallops. ABDOMEN: Abdominal exam reveals normal bowel sounds. Non-tender and non- distended. No evidence of peritonitis. EXTREMITITES: Chronic changes. Objective - Vital Signs Vital signs: Vital Signs Temp 98.1 F 01/16/17 08:13 Pulse 66 01/16/17 08:13 Resp 18 01/16/17 08:13 BP 109/86 01/16/17 08:13 Pulse Ox 95 01/16/17 08:13 Intake & Output 01/15/17 01/16/17 01/16/17 18:59 06:59 18:59 Intake Total 160 100 0 Output Total 112 Balance 48 100 0 Intake: IV 100 Sodium Ferric Gluconat- 100 Sucrose 125 mg In Sodium Chloride 0.9% 100 ml @ 100 mls/hr IVPB DAILY [facility] Rx#:[id number] Intake, IV Titration 100 Amount Sodium Ferric Gluconat- 100 Sucrose 125 mg In Sodium Chloride 0.9% 100 ml @ 100 mls/hr IVPB DAILY [facility] Rx#:[id number] Oral 60 0 Output: Post Void Residual 112 Other: Voiding Method Incontinent Incontinent Incontinent - Labs CBC & Chem 7: 01/14/17 06:17 01/16/17 05:58 Labs: Abnormal Lab Results - Last 24 Hours (Table) 01/16/17 Range/Units 05:58 Sodium 146 H (137-145) mmol/L Carbon Dioxide 34 H (22-30) mmol/L BUN 74 H (7-17) mg/dL Creatinine 2.91 H (0.52-1.04) mg/dL Glucose 68 L (74-99) mg/dL Microbiology - Last 24 Hours (Table) 01/14/17 15:40 Urine Culture - Final Urine,Catheterized Assessment and Plan Plan: Assessment: #1. Nonoliguric acute kidney injury secondary to ATN secondary to vomiting and diaphoresis. Creatinine improved to 2.9 today. No evidence of urinary retention. #2. Chronic kidney disease stage III secondary to nephrosclerosis with baseline creatinine near 1.4. Recent urinalysis and ultrasound noted to be benign. #3. Systolic CHF with ejection fraction of 45% with moderate pulmonary hypertension. Compensated. #4. Anemia. Possible underlying upper GI bleed. Iron deficiency present. #5. History of urinary retention. Plan: Continue normal saline to be run at 50 mL an hour. Will Hep-Lock IV fluids as oral intake improves. Ferrlecit 125 mg IV daily for 3 days. Second dose today. Advance diet per GI recommendations. Repeat electrolytes in the morning. Avoid nephrotoxic agents and hypotensive episodes. Hold diuretics for now.
[2017-01-16 09:42] LABS: Anisocytosis Moderate; Basophils % (A) 0 %; CH 26.8; CHCM 28.1; Eosinophils # (A) 0.1 k/uL (0-0.7); Eosinophils % (A) 2 %; HCT 27.3 % (34.0-46.0); HDW 3.07; Hypochromasia Marked; Luc # (Auto) 0.07; Luc % (Auto) 1; Lymphocytes # (A) 0.7 k/uL (1.0-4.8); Lymphocytes % (A) 13 %; MCH 28.2 pg (25.0-35.0); MCHC 29.3 g/dL (31.0-37.0); Macrocytosis Slight; Mean Platelet Volume 11.7; Monocytes # (A) 0.3 k/uL (0-1.0); Monocytes % (A) 7 %; Neutrophils % (A) 76 %; RBC 2.84 m/uL (3.80-5.40); WBC 5.2 k/uL (3.8-10.6); WBC (Perox) 5.34
--- NOTE | 2017-01-16 10:33 | P.PN ---
Subjective Principal diagnosis: Coffee-ground emesis 66-year-old female admitted with nausea vomiting coffee-ground emesis with acute kidney injury superimposed on chronic kidney disease. History of atrial fibrillation without anticoagulation. No recurrence of nausea vomiting or coffee-ground emesis. Denies rectal bleeding. Afebrile. Hemoglobin 8. Objective - Vital Signs Vital signs: Vital Signs Temp 98.1 F 01/16/17 08:13 Pulse 66 01/16/17 08:13 Resp 18 01/16/17 08:13 BP 109/86 01/16/17 08:13 Pulse Ox 95 01/16/17 08:13 Intake & Output 01/15/17 01/16/17 01/16/17 18:59 06:59 18:59 Intake Total 160 100 0 Output Total 112 Balance 48 100 0 Intake: IV 100 Sodium Ferric Gluconat- 100 Sucrose 125 mg In Sodium Chloride 0.9% 100 ml @ 100 mls/hr IVPB DAILY [facility] Rx#:[id number] Intake, IV Titration 100 Amount Sodium Ferric Gluconat- 100 Sucrose 125 mg In Sodium Chloride 0.9% 100 ml @ 100 mls/hr IVPB DAILY [facility] Rx#:[id number] Oral 60 0 Output: Post Void Residual 112 Other: Voiding Method Incontinent Incontinent Incontinent - Exam General appearance: The patient is alert, oriented, in no acute distress. Morbidly obese. HET: Head is normocephalic and atraumatic. Pupils are equal and reactive. Oropharynx is clear without lesions. Neck: Supple without lymphadenopathy. Trachea midline. Heart: S1 S2. Lungs: No crackles or wheezes are heard. Diminished bilaterally bases. Abdomen: Soft, nontender, nondistended with bowel sounds. No peritoneal signs. No palpable organomegaly or masses. Extremities: No edema. - Labs CBC & Chem 7: 01/16/17 05:58 01/16/17 05:58 Labs: Abnormal Lab Results - Last 24 Hours (Table) 01/16/17 01/16/17 Range/Units 05:58 05:58 RBC 2.84 L (3.80-5.40) m/uL Hgb 8.0 L (11.4-16.0) gm/dL Hct 27.3 L (34.0-46.0) % MCHC 29.3 L (31.0-37.0) g/dL RDW 20.0 H (11.5-15.5) % Plt Count 133 L (150-450) k/uL Lymphocytes # 0.7 L (1.0-4.8) k/uL Sodium 146 H (137-145) mmol/L Carbon Dioxide 34 H (22-30) mmol/L BUN 74 H (7-17) mg/dL Creatinine 2.91 H (0.52-1.04) mg/dL Glucose 68 L (74-99) mg/dL Microbiology - Last 24 Hours (Table) 01/14/17 15:40 Urine Culture - Final Urine,Catheterized Assessment and Plan (1) Coffee ground emesis Narrative/Plan: Possible gastritis possible peptic ulcer disease hemoglobin relatively stable over the last 48 hours. No recurrence of coffee-ground emesis or active GI bleeding. Status: Acute (2) Upper gastrointestinal hemorrhage Status: Acute (3) Morbid obesity with BMI of 70 and over, adult Status: Acute (4) Elevated troponin Status: Acute (5) Acute renal failure Status: Acute (6) Chronic disease anemia Status: Chronic Plan: 1. Full liquid diet. Continue to monitor CBC and for any signs or symptoms of active GI bleeding. Continue with IV Protonix. Endoscopic exams not planned at this time. Assessment and plan of care discussed with Dr. Patel.
--- NOTE | 2017-01-16 11:44 | PN ---
66-year-old admitted for ( ) that resolved at this point in time. The patient is on Protonix. The patient has worsening renal function secondary to acute tubular necrosis which is multifactorial ( ), along with medications and the patient has normal ejection fraction now. The patient has only mild pulmonary hypertension. The patient is morbidly obese. The patient also has a Arteaga catheter for which the patient has urinary retention contributing to her acute renal failure. REVIEW OF SYSTEMS: CARDIOVASCULAR: No chest pain, no orthopnea, no PND, no palpitations. PULMONARY: Denied any shortness of breath. No cough or hemoptysis. GASTROINTESTINAL: No diarrhea, nausea or vomiting. No abdominal pain. Normoactive bowel sounds. NEUROLOGIC: No headaches, no weakness, no numbness. Medications are reviewed. PHYSICAL EXAMINATION: Temperature 97.7, pulse 72, respiratory rate of 16, blood pressure is 111/68, saturating at 99% on CPAP as needed. GENERAL: The patient is alert and oriented x3, not in any acute distress. Well developed, well nourished. HEENT: Pupils are round and equally reacting to light. EOMI. No scleral icterus. No conjunctival pallor. Normocephalic, atraumatic. No pharyngeal erythema. No thyromegaly. CARDIOVASCULAR: S1 and S2 present. No murmurs, rubs, or gallops. PULMONARY: Chest is clear to auscultation, no wheezing or crackles. ABDOMEN: Soft, nontender, nondistended, normoactive bowel sounds. No palpable organomegaly. MUSCULOSKELETAL: No joint swelling or deformity. EXTREMITIES: No cyanosis, clubbing, or pedal edema. NEUROLOGICAL: Gross neurological examination did not reveal any focal deficits. SKIN: No rashes. LABORATORY DATA: Basic metabolic profile is significant for fairly stable BUN and creatinine of 7.4 and 3.24, sodium of 146. Patient was started on IV normal saline by nephrology. ASSESSMENT AND PLAN: 1. Upper gastrointestinal bleed which improved secondary to peptic ulcer disease. 2. Acute blood loss anemia from upper gastrointestinal bleed. 3. Acute renal failure secondary to possible acute tubular necrosis along with severe prerenal azotemia and all the nephrotoxic medications are being held at this point of time. Patient has normal ejection fraction at this point of time. Patient does not have any congestive heart failure. I do not believe the patient even has systolic dysfunction although patient has chronic venostasis dermatosis and chronic venostasis in bilateral lower limbs. 4. Obstructive sleep apnea. 5. Chronic kidney disease stage III secondary to hypertensive nephrosclerosis. 6. Obstructive sleep apnea. 7. Morbid obesity. 8. Asthma or chronic obstructive pulmonary disease without any acute exacerbation. 9. Mildly elevated troponin secondary to chronic renal dysfunction. PLAN: Continue with IV fluids, monitor kidney function, monitor for any gastrointestinal bleed.
--- NOTE | 2017-01-16 15:15 | P.PN ---
Subjective This is a 66-year-old -[place] female who is admitted to the hospital with GI bleed, anemia, chronic kidney disease and mildly elevated troponins. She had a 2-D echo that showed normal LV systolic function. Upon examination this morning, patient is resting comfortably in bed. She denies complaints of chest discomfort, shortness of breath, palpitations, further GI bleeding or nausea and vomiting. Objective - Vital Signs Vital signs: Vital Signs Temp 97.7 F 01/16/17 11:42 Pulse 69 01/16/17 11:53 Resp 18 01/16/17 11:53 BP 131/67 01/16/17 11:42 Pulse Ox 96 01/16/17 11:42 Intake & Output 01/15/17 01/16/17 01/16/17 18:59 06:59 18:59 Intake Total 160 100 120 Output Total 112 Balance 48 100 120 Intake: IV 100 Sodium Ferric Gluconat- 100 Sucrose 125 mg In Sodium Chloride 0.9% 100 ml @ 100 mls/hr IVPB DAILY [facility] Rx#:[id number] Intake, IV Titration 100 Amount Sodium Ferric Gluconat- 100 Sucrose 125 mg In Sodium Chloride 0.9% 100 ml @ 100 mls/hr IVPB DAILY [facility] Rx#:[id number] Oral 60 120 Output: Post Void Residual 112 Other: Voiding Method Incontinent Incontinent Incontinent - Exam PHYSICAL EXAMINATION: HEENT: Head is atraumatic, normocephalic. Pupils equal, round. Neck is supple. There is no elevated jugular venous pressure. HEART EXAMINATION: Heart sounds irregular irregular, S1 and S2 normal. No murmur or gallop heard. CHEST EXAMINATION: Lungs are clear to auscultation and precussion. No chest wall tenderness is noted on palpation or with deep breathing. ABDOMEN: Soft, obese, nontender. Bowel sounds are heard. No organomegaly noted. EXTREMITIES: Diminished peripheral pulses with evidence of 1+ peripheral edema and no calf tenderness noted. Changes consistent with chronic stasis noted to bilateral lower legs. NEUROLOGIC patient is awake, alert and oriented x3. . - Labs CBC & Chem 7: 01/16/17 05:58 01/16/17 05:58 Labs: Abnormal Lab Results - Last 24 Hours (Table) 01/16/17 01/16/17 Range/Units 05:58 05:58 RBC 2.84 L (3.80-5.40) m/uL Hgb 8.0 L (11.4-16.0) gm/dL Hct 27.3 L (34.0-46.0) % MCHC 29.3 L (31.0-37.0) g/dL RDW 20.0 H (11.5-15.5) % Plt Count 133 L (150-450) k/uL Lymphocytes # 0.7 L (1.0-4.8) k/uL Sodium 146 H (137-145) mmol/L Carbon Dioxide 34 H (22-30) mmol/L BUN 74 H (7-17) mg/dL Creatinine 2.91 H (0.52-1.04) mg/dL Glucose 68 L (74-99) mg/dL Microbiology - Last 24 Hours (Table) 01/14/17 15:40 Urine Culture - Final Urine,Catheterized Assessment and Plan Plan: Assessment and plan #1 mild troponin elevation likely secondary to underlying renal insufficiency #2 chronic atrial fibrillation #3 morbid obesity #4 GI bleed #5 chronic renal failure From cardiology perspective, patient is not a candidate for long-term anticoagulation at this time due to GI bleeding. We will continue current medications including Lipitor, Imdur and Coreg. The above dictated assessment and findings were discussed with signing physician. The impression and plan of care have been directed as dictated. Mellisa Abrams, Nurse Practitioner, acting as scribe for signing physician.
[2017-01-16] MEDS: SODIUM CHLORIDE 0.9% 1,000 ML IV SCH (16:58)
--- NOTE | 2017-01-16 19:13 | PN ---
DATE OF SERVICE: 01/16/2017 CHIEF COMPLAINT: Coffee ground emesis. INTERVAL HISTORY: This patient with multiple problems presented with coffee-ground emesis with ( ) which happened at the [facility]. Patient is requesting diet to be advanced. The patient also had acute tubular necrosis felt to be multifactorial. The patient daughter at the bedside, lying in bed. Review of systems done for constitutional, cardiovascular, GI, pulmonary; relevant findings as above. Current medications are reviewed and include Protonix. On examination, temperature 97.7, pulse 59, respiratory rate 18, blood pressure 130/67, pulse ox 96% on 2 liters. GENERAL APPEARANCE: Morbidly obese, lying in bed, comfortable. EYES: Pupils equal. Conjunctivae normal. NECK: JVD unable to assess. Mass not palpable. RESPIRATORY: Effort increased. LUNGS: Distant breath sounds. CARDIOVASCULAR: Heart sounds muffled. ABDOMEN: Distended, soft. Liver and spleen not palpable. PSYCHIATRY: Alert and oriented times three. Mood and affect normal. INVESTIGATIONS: Hemoglobin is 8, potassium 4.6, BUN 74, creatinine 2.91. ASSESSMENT: 1. Acute upper gastrointestinal bleed manifesting as coffee-ground emesis, not for EGD by Dr. Patel to be followed conservatively. 2. Chronic kidney disease, stage III from nephrosclerosis. 3. Hypertension with chronic kidney disease. 4. Persistent atrial fibrillation. 5. Fatty liver disease. 6. Chronic obstructive pulmonary disease in an ex-smoker. 7. Primary osteoarthritis in multiple joints, bilateral. 8. Obstructive sleep apnea, uses CPAP. 9. Chronic gout. 10. Morbid obesity, body mass index of 79. 11. Acute renal failure, likely acute tubular necrosis, present on admission 12. Acute blood loss anemia, the patient's hemoglobin did drop down to 8. PLAN: Continue current medication and treatment plan. Diet is being advanced. Care was discussed with the patient and daughter at the bedside. No EGD per Gastroenterology. Given the renal failure, acute component, we will continue with some gentle hydration. Definitely patient on the dry side given that patient's sodium was 146.
[2017-01-16] MEDS: ATORVASTATIN 40 MG TAB PO SCH (21:40)
[2017-01-17] MEDS: SODIUM CHLORIDE 0.9% 1,000 ML IV SCH ×2 (06:21→20:20)
[2017-01-17] MEDS: CARVEDILOL 12.5 MG TAB PO SCH ×2 (06:22→17:20)
[2017-01-17 06:36] LABS: Calcium 9.2 mg/dL (8.4-10.2); Potassium 4.8 mmol/L (3.5-5.1)
[2017-01-17] MEDS: IPRATROPIUM-ALBUTEROL 3 ML NEB INHALATION SCH ×4 (08:56→22:23)
--- NOTE | 2017-01-17 10:08 | P.PN ---
Subjective Patient is seen in follow-up for acute kidney injury on chronic kidney disease. Patient has chronic kidney disease stage III with baseline creatinine near 1.4 secondary to nephrosclerosis. Patient presented with coffee-ground emesis. Denies any nausea or vomiting this admission. Renal function is improved with creatinine at 2.83 today. Denies any chest pain or shortness of breath. She has been tolerating clear liquid diet. Admits to good urine output. Vital signs are stable. General: The patient appeared well nourished and normally developed. HEENT: Head exam is unremarkable. Neck is without jugular venous distension. LUNGS: Lungs are clear to auscultation and percussion. Breath sounds decreased. HEART: Rate and Rhythm are regular. First and second heart sounds normal. No murmurs, rubs or gallops. ABDOMEN: Abdominal exam reveals normal bowel sounds. Non-tender and non- distended. No evidence of peritonitis. EXTREMITITES: Chronic changes. Objective - Vital Signs Vital signs: Vital Signs Temp 97.3 F L 01/17/17 08:05 Pulse 72 01/17/17 09:04 Resp 18 01/17/17 08:05 BP 109/60 01/17/17 08:05 Pulse Ox 98 01/17/17 08:05 Intake & Output 01/16/17 01/17/17 01/17/17 18:59 06:59 18:59 Intake Total 120 1140 120 Output Total 300 Balance 120 840 120 Weight 205 kg Intake: IV 900 Sodium Chloride 0.9% 1, 900 000 ml @ 110 mls/hr IV . Q9H6M [facility] Rx#:[id number] Oral 120 240 120 Output: Urine 300 Other: Voiding Method Incontinent Bedpan # Voids 1 # Bowel Movements 1 - Labs CBC & Chem 7: 01/16/17 05:58 01/17/17 05:50 Labs: Abnormal Lab Results - Last 24 Hours (Table) 01/17/17 Range/Units 05:50 Carbon Dioxide 32 H (22-30) mmol/L BUN 70 H (7-17) mg/dL Creatinine 2.83 H (0.52-1.04) mg/dL Assessment and Plan Plan: Assessment: #1. Nonoliguric acute kidney injury secondary to ATN secondary to vomiting and diaphoresis. Creatinine improved to 2.83 today. No evidence of urinary retention. #2. Chronic kidney disease stage III secondary to nephrosclerosis with baseline creatinine near 1.4. Recent urinalysis and ultrasound noted to be benign. #3. Systolic CHF with ejection fraction of 45% with moderate pulmonary hypertension. Compensated. #4. Anemia. Possible underlying upper GI bleed. Iron deficiency present. #5. History of urinary retention. Plan: Continue normal saline to be run at 75 mL an hour. Will Hep-Lock IV fluids as oral intake improves - she is now on a full liquid diet. Ferrlecit 125 mg IV daily for 3 days. Third dose today. Advance diet per GI recommendations. Repeat electrolytes in the morning. Avoid nephrotoxic agents and hypotensive episodes. Hold diuretics for now.
[2017-01-17] MEDS: PANTOPRAZOLE 40 MG/10 ML VIAL IV SCH (10:45)
[2017-01-17] MEDS: SODIUM FERRIC GLUCONAT-SUCROSE 125 MG in SODIUM CHLORIDE 0.9% 100 ML IVPB SCH (10:46)
[2017-01-17] MEDS: ALLOPURINOL 100 MG TAB PO SCH (10:46)
[2017-01-17] MEDS: MENTHOL-ZINC OXIDE OINT 113 GM TUBE TOPICAL SCH ×2 (11:40→22:42)
[2017-01-17] MEDS: ISOSORBIDE MONONITRATE ER 30 MG TAB.ER.24H PO SCH (11:40)
--- NOTE | 2017-01-17 12:05 | P.PN ---
Subjective Principal diagnosis: GI bleed This is a 66-year-old morbidly obese -[place] female who was admitted to the hospital with GI bleed, anemia, chronic kidney disease, and mild elevated troponins. The patient has chronic persistent atrial fibrillation, nonischemic day for anticoagulation because of GI bleeding. Patient did have an echocardiogram with Doppler study performed which revealed normal left ventricular systolic function. At the time of my examination this morning, patient is lying comfortably in bed, states her breathing is stable, denies any chest pain, no dizziness or lightheadedness. No further episodes of GI bleeding. Blood pressure 110/60 with a heart rate in 80s. Objective - Vital Signs Vital signs: Vital Signs Temp 97.3 F L 01/17/17 08:05 Pulse 72 01/17/17 09:04 Resp 18 01/17/17 08:05 BP 109/60 01/17/17 08:05 Pulse Ox 98 01/17/17 08:05 Intake & Output 01/16/17 01/17/17 01/17/17 18:59 06:59 18:59 Intake Total 120 1140 120 Output Total 300 Balance 120 840 120 Weight 205 kg Intake: IV 900 Sodium Chloride 0.9% 1, 900 000 ml @ 110 mls/hr IV . Q9H6M [facility] Rx#:[id number] Oral 120 240 120 Output: Urine 300 Other: Voiding Method Incontinent Bedpan Bedpan # Voids 1 # Bowel Movements 1 - Exam PHYSICAL EXAMINATION: HEENT: Head is atraumatic, normocephalic. Pupils equal, round. Neck is supple. There is no elevated jugular venous pressure. HEART EXAMINATION: Heart sounds irregular irregular, S1 and S2 normal. No murmur or gallop heard. CHEST EXAMINATION: Lungs are clear to auscultation and precussion. No chest wall tenderness is noted on palpation or with deep breathing. ABDOMEN: Soft, obese, nontender. Bowel sounds are heard. No organomegaly noted. EXTREMITIES: Diminished peripheral pulses with evidence of 1+ peripheral edema and no calf tenderness noted. Changes consistent with chronic stasis noted to bilateral lower legs. NEUROLOGIC patient is awake, alert and oriented x3. - Labs CBC & Chem 7: 01/16/17 05:58 01/17/17 05:50 Labs: Abnormal Lab Results - Last 24 Hours (Table) 01/17/17 Range/Units 05:50 Carbon Dioxide 32 H (22-30) mmol/L BUN 70 H (7-17) mg/dL Creatinine 2.83 H (0.52-1.04) mg/dL Assessment and Plan (1) GI bleed Status: Acute (2) Anemia Status: Acute (3) Chronic kidney disease Status: Acute (4) Hypertension Status: Acute (5) Chronic a-fib Status: Acute (6) Elevated troponin Status: Acute Plan: From cardiology's perspective, patient is not a candidate for long-term anticoagulation secondary to GI bleeding. We will continue the current medications she is on including Lipitor, Imdur and Coreg. DNP note has been reviewed, I agree with a documented findings and plan of care. Patient was seen and examined.
[2017-01-17] MEDS: ONDANSETRON 4 MG/2 ML VIAL IVP PRN (20:09)
[2017-01-17] MEDS: ATORVASTATIN 40 MG TAB PO SCH (20:20)
--- NOTE | 2017-01-17 23:28 | PN ---
DATE OF SERVICE: 01/17/2017 PRESENTING COMPLAINT: Coffee-ground emesis. This is a patient who presented with coffee-ground emesis which has settled. Diet was advanced. Patient also has acute renal failure, getting gentle hydration. Numbers are slowly coming down. Daughter is at the bedside. Review of systems done for constitutional, cardiovascular, GI, pulmonary; relevant findings as above. Current medications are reviewed. IV fluids at 75 mL/hour. Also getting IV iron. On examination, temperature 96.8, pulse 65, respiration 18, blood pressure 115/63, pulse ox 93% on 5 L. GENERAL APPEARANCE: Propped up in bed. Awake. EYES: Pupils equal. Conjunctivae normal. NECK: JVD unable to assess. Mass not palpable. RESPIRATORY: Effort increased. LUNGS: Distant breath sounds. CARDIOVASCULAR: Heart sounds muffled. ABDOMEN: Distended, soft. Liver and spleen not palpable. PSYCHIATRY: Alert and oriented x3. Mood and affect normal. INVESTIGATIONS: BUN 70, creatinine 2.83. ASSESSMENT: 1. Acute upper gastrointestinal bleed manifesting as coffee-ground emesis, not for EGD by Dr. Patel. To be followed conservatively. Patient's diet has been tolerated. 2. Chronic kidney disease, stage III, from nephrosclerosis. 3. Hypertension with chronic kidney disease. 4. Persistent atrial fibrillation. 5. Fatty liver disease. 6. Chronic obstructive pulmonary disease in an ex-smoker. 7. Primary osteoarthritis in multiple joints, bilateral. 8. Obstructive sleep apnea; uses CPAP. 9. Chronic gout. 10. Morbid obesity; body mass index 72.9. 11. Acute renal failure, likely acute tubular necrosis, present on admission, slow to respond. 12. Acute blood loss anemia. Patient did drop her hemoglobin. PLAN: Continue to hydrate the patient. Increase IV fluids to 100 mL/hour. Care was discussed with the patient and her daughter at the bedside. Await BUN and creatinine to further come down.
[2017-01-18] MEDS: SODIUM CHLORIDE 0.9% 1,000 ML IV SCH (06:15)
[2017-01-18] MEDS: CARVEDILOL 12.5 MG TAB PO SCH ×2 (08:22→17:23)
[2017-01-18] MEDS: IPRATROPIUM-ALBUTEROL 3 ML NEB INHALATION SCH ×5 (08:31→20:08)
[2017-01-18] MEDS: ONDANSETRON 4 MG/2 ML VIAL IVP PRN (08:39)
[2017-01-18 09:13] LABS: Calcium 8.9 mg/dL (8.4-10.2); Potassium 4.4 mmol/L (3.5-5.1)
[2017-01-18 09:14] LABS: Anisocytosis Moderate; Basophils % (A) 0 %; CHCM 28.2; Eosinophils # (A) 0.1 k/uL (0-0.7); Eosinophils % (A) 2 %; HGB 8.1 gm/dL (11.4-16.0); Hypochromasia Marked; Luc # (Auto) 0.07; Luc % (Auto) 2; Lymphocytes # (A) 0.6 k/uL (1.0-4.8); Lymphocytes % (A) 13 %; MCH 27.9 pg (25.0-35.0); MCHC 28.9 g/dL (31.0-37.0); MCV 96.6 fL (80.0-100.0); Macrocytosis Slight; Mean Platelet Volume 9.6; Monocytes # (A) 0.3 k/uL (0-1.0); Monocytes % (A) 7 %; Neutrophils # (A) 3.7 k/uL (1.3-7.7); Neutrophils % (A) 77 %; RDW 21.2 % (11.5-15.5); WBC 4.9 k/uL (3.8-10.6); WBC (Perox) 4.71
[2017-01-18 09:30] LABS: Large Platelets Present; Manual Review Performed; Target Cells Present
[2017-01-18] MEDS: PANTOPRAZOLE 40 MG/10 ML VIAL IV SCH (10:38)
[2017-01-18] MEDS: ALLOPURINOL 100 MG TAB PO SCH (10:39)
[2017-01-18] MEDS: ISOSORBIDE MONONITRATE ER 30 MG TAB.ER.24H PO SCH (10:39)
[2017-01-18] MEDS: MENTHOL-ZINC OXIDE OINT 113 GM TUBE TOPICAL SCH ×3 (10:41→22:06)
--- NOTE | 2017-01-18 11:21 | P.PN ---
Subjective Patient is seen in follow-up for acute kidney injury on chronic kidney disease. Patient has chronic kidney disease stage III with baseline creatinine near 1.4 secondary to nephrosclerosis. Patient presented with coffee-ground emesis. Denies any nausea or vomiting this admission. Renal function is worsened today with creatinine at 3.08. Denies any chest pain or shortness of breath. Admits to good urine output. Her oral intake has been poor and she feels nauseous. Vital signs are stable. General: The patient appeared well nourished and normally developed. HEENT: Head exam is unremarkable. Neck is without jugular venous distension. LUNGS: Lungs are clear to auscultation and percussion. Breath sounds decreased. HEART: Rate and Rhythm are regular. First and second heart sounds normal. No murmurs, rubs or gallops. ABDOMEN: Abdominal exam reveals normal bowel sounds. Non-tender and non- distended. No evidence of peritonitis. EXTREMITITES: Chronic changes. Objective - Vital Signs Vital signs: Vital Signs Temp 98.2 F 01/18/17 11:15 Pulse 74 01/18/17 11:15 Resp 20 01/18/17 11:15 BP 100/59 01/18/17 11:15 Pulse Ox 100 01/18/17 11:15 Intake & Output 01/17/17 01/18/17 01/18/17 18:59 06:59 18:59 Intake Total 1070 440 0 Balance 1070 440 0 Weight 206.4 kg Intake: IV 100 Sodium Ferric Gluconat- 100 Sucrose 125 mg In Sodium Chloride 0.9% 100 ml @ 100 mls/hr IVPB DAILY [facility] Rx#:[id number] Intake, IV Titration 600 Amount Sodium Chloride 0.9% 1, 600 000 ml @ 75 mls/hr IV . [id number] [facility] Rx#:[id number] Oral 370 440 Blood Product 0 Rc As-1 Unit 0 [id number] Other: Voiding Method Bedpan # Voids 1 1 # Bowel Movements 0 # Emeses 2 - Labs CBC & Chem 7: 01/18/17 08:33 01/18/17 08:33 Labs: Abnormal Lab Results - Last 24 Hours (Table) 01/18/17 01/18/17 01/18/17 Range/Units 08:33 08:33 08:33 RBC 2.90 L (3.80-5.40) m/uL Hgb 8.1 L (11.4-16.0) gm/dL Hct 28.0 L (34.0-46.0) % MCHC 28.9 L (31.0-37.0) g/dL RDW 21.2 H (11.5-15.5) % Plt Count 112 L (150-450) k/uL Lymphocytes # 0.6 L (1.0-4.8) k/uL Sodium 148 H (137-145) mmol/L Carbon Dioxide 36 H (22-30) mmol/L BUN 64 H (7-17) mg/dL Creatinine 3.08 H (0.52-1.04) mg/dL Crossmatch See Detail Assessment and Plan Plan: Assessment: #1. Nonoliguric acute kidney injury secondary to ATN secondary to vomiting and diaphoresis. Creatinine elevated at 3.08 today - this is related to hypotension. Her blood pressure this morning was in the systolic 60-70 range. She remains asymptomatic. #2. Chronic kidney disease stage III secondary to nephrosclerosis with baseline creatinine near 1.4. Recent urinalysis and ultrasound noted to be benign. #3. Systolic CHF with ejection fraction of 45% with moderate pulmonary hypertension. Compensated. #4. Anemia. Possible underlying upper GI bleed. Iron deficiency present. Status post 3 doses of IV iron. #5. History of urinary retention. #6. Hypernatremia secondary to lack of oral water intake. Plan: I will change IV fluids to half-normal saline to be run at 125 mL an hour. Advance diet per GI recommendations. Repeat electrolytes in the morning. Avoid nephrotoxic agents and hypotensive episodes. Hold diuretics for now. She is also scheduled to get 1 unit of packed red blood cell transfusion today. Bolus with 0.9% saline if systolic blood pressure remains persistently less than 100. Check cortisol level.
[2017-01-18] MEDS: SODIUM CHLORIDE 0.45% 1,000 ML IV SCH ×3 (12:53→22:58)
[2017-01-18] MEDS: SODIUM FERRIC GLUCONAT-SUCROSE 125 MG in SODIUM CHLORIDE 0.9% 100 ML IVPB SCH (12:53)
[2017-01-18] MEDS ORDERED: SODIUM CHLORIDE 0.9% 500 ML IV ONE (15:08)
[2017-01-18 16:59] LABS: Appearance,Urine Cloudy (Clear); Bacteria,Urine Moderate /hpf; Bilirubin,Urine Negative (Negative); Glucose,Urine (UA) Negative (Negative); Ketones,Urine Negative (Negative); Leukocyte Esterase,Urine Negative (Negative); Nitrite,Urine Negative (Negative); PH, Urine 5.5 (5.0-8.0); Particle Count 28954; Protein,Urine 2+ (Negative); Specific Gravity,Urine 1.012 (1.001-1.035); Squamous Epithelial Cell,Urine 4 /hpf (0-4); UA Billing (MACRO vs. MICRO) MICRO; WBC,Urine 7 /hpf (0-5)
[2017-01-18 17:28] LABS: Anisocytosis Moderate; CH 27.8; CHCM 29.2; HCT 29.4 % (34.0-46.0); HDW 3.73; HGB 8.5 gm/dL (11.4-16.0); Hypochromasia Marked; MCH 27.9 pg (25.0-35.0); MCHC 28.9 g/dL (31.0-37.0); MCV 96.5 fL (80.0-100.0); Macrocytosis Slight; Mean Platelet Volume 10.8; Poikilocytosis Slight; RBC 3.04 m/uL (3.80-5.40); RDW 21.9 % (11.5-15.5); WBC 4.6 k/uL (3.8-10.6)
[2017-01-18] MEDS: ATORVASTATIN 40 MG TAB PO SCH (22:05)
--- NOTE | 2017-01-18 23:00 | PN ---
DATE OF SERVICE: 01/18/2017 Presenting complaint: Coffee ground emesis. INTERVAL HISTORY: This patient presented with coffee ground emesis which has settled. This morning nurse called me, that the patient has been hypertensive running systolics about 80. Patient also having nausea, not able to keep any foods down. Hemoglobin down to 8. Given hypertensive, I decided I ordered a unit of blood to be given over an hour. The patient also getting hydration. Review of systems done for constitutional, cardiovascular, GI, pulmonary; relevant findings as above. Current medications are reviewed. On examination, temperature 98.6, pulse 69, respiration 18, blood pressure 75/40, pulse ox 96% on 3 liters. GENERAL APPEARANCE: Lying in bed, tired -appearing. EYES: Pupils equal, conjunctivae pale. NECK: JVD unable to assess. Mass not palpable. RESPIRATORY: Effort normal. LUNGS: Diminished breath sounds. CARDIOVASCULAR: Muffled. ABDOMEN: Distended, soft. Liver and spleen not palpable. PSYCHIATRIC: Alert and oriented x3. Mood and affect normal. INVESTIGATIONS: Hemoglobin was 8.1 this morning. BUN 64, creatinine 3.08, sodium 148. ASSESSMENT: 1. Acute upper gastrointestinal bleeding manifesting coffee-ground emesis. The patient did drop her hemoglobin becoming symptomatic, hypertensive, hence one unit of blood was ordered this morning. 2. Chronic kidney disease, stage III from nephrosclerosis. 3. Hypertensive with chronic kidney disease. 4. Persistent atrial fibrillation. 5. Fatty liver. 6. Chronic obstructive pulmonary disease in an ex-smoker. 7. Primary osteoarthritis of multiple joints, bilateral. 8. Obstructive sleep apnea, uses CPAP. 9. Chronic gout. 10. Moderate obesity, body mass index of 32.9. 11. Acute renal failure, likely acute tubular necrosis present at admission. 12. Acute symptomatic severe blood loss anemia. PLAN: The patient is getting a unit of blood, IV fluids are back on board. Repeat electrolytes in the morning. Follow.
[2017-01-19] MEDS: IPRATROPIUM-ALBUTEROL 3 ML NEB INHALATION SCH ×4 (08:27→20:09)
--- NOTE | 2017-01-19 09:23 | P.PN ---
Subjective Patient is seen in follow-up for acute kidney injury on chronic kidney disease. Patient has chronic kidney disease stage III with baseline creatinine near 1.4 secondary to nephrosclerosis. Patient presented with coffee-ground emesis. Denies any nausea or vomiting this admission. Renal function worsened with creatinine at 3.08 as of yesterday. Denies any chest pain or shortness of breath. Her oral intake has been poor and she feels nauseous. She does have history of urinary retention and a Arteaga catheter was inserted yesterday. Vital signs are stable. General: The patient appeared well nourished and normally developed. HEENT: Head exam is unremarkable. Neck is without jugular venous distension. LUNGS: Lungs are clear to auscultation and percussion. Breath sounds decreased. HEART: Rate and Rhythm are regular. First and second heart sounds normal. No murmurs, rubs or gallops. ABDOMEN: Abdominal exam reveals normal bowel sounds. Non-tender and non- distended. No evidence of peritonitis. EXTREMITITES: Chronic changes. Objective - Vital Signs Vital signs: Vital Signs Temp 98.1 F 01/19/17 07:00 Pulse 68 01/19/17 07:00 Resp 18 01/19/17 07:00 BP 102/48 01/19/17 07:00 Pulse Ox 99 01/19/17 07:00 Intake & Output 01/18/17 01/19/17 01/19/17 18:59 06:59 18:59 Intake Total 1420 120 Output Total 600 900 Balance 820 -780 Weight 206.4 kg 170.8 kg Intake: Intake, IV Titration 800 Amount Sodium Chloride 0.9% 1, 200 000 ml @ 100 mls/hr IV . Q10H [facility] Rx#:[id number] Sodium Chloride 0.9% 500 500 ml @ 999 mls/hr IV .Q31M [facility] Rx#:[id number] Sodium Ferric Gluconat- 100 Sucrose 125 mg In Sodium Chloride 0.9% 100 ml @ 100 mls/hr IVPB DAILY [facility] Rx#:[id number] Oral 120 Blood Product 620 Rc As-1 Unit 310 [id number] Output: Urine 600 900 Uretheral (Arteaga) 300 Other: Voiding Method Bedpan # Voids 0 0 # Bowel Movements 0 # Emeses 2 - Labs CBC & Chem 7: 01/18/17 17:10 01/18/17 08:33 Labs: Abnormal Lab Results - Last 24 Hours (Table) 01/18/17 01/18/17 01/18/17 Range/Units 08:33 08:33 08:33 RBC 2.90 L (3.80-5.40) m/uL Hgb 8.1 L (11.4-16.0) gm/dL Hct 28.0 L (34.0-46.0) % MCHC 28.9 L (31.0-37.0) g/dL RDW 21.2 H (11.5-15.5) % Plt Count 112 L (150-450) k/uL Lymphocytes # 0.6 L (1.0-4.8) k/uL Sodium 148 H (137-145) mmol/L Carbon Dioxide 36 H (22-30) mmol/L BUN 64 H (7-17) mg/dL Creatinine 3.08 H (0.52-1.04) mg/dL Urine Appearance (Clear) Urine Protein (Negative) Urine Blood (Negative) Urine WBC (0-5) /hpf Urine Bacteria (None) /hpf Crossmatch See Detail 01/18/17 01/18/17 Range/Units 16:45 17:10 RBC 3.04 L (3.80-5.40) m/uL Hgb 8.5 L (11.4-16.0) gm/dL Hct 29.4 L (34.0-46.0) % MCHC 28.9 L (31.0-37.0) g/dL RDW 21.9 H (11.5-15.5) % Plt Count 118 L (150-450) k/uL Lymphocytes # (1.0-4.8) k/uL Sodium (137-145) mmol/L Carbon Dioxide (22-30) mmol/L BUN (7-17) mg/dL Creatinine (0.52-1.04) mg/dL Urine Appearance Cloudy H (Clear) Urine Protein 2+ H (Negative) Urine Blood Small H (Negative) Urine WBC 7 H (0-5) /hpf Urine Bacteria Moderate H (None) /hpf Crossmatch Microbiology - Last 24 Hours (Table) 01/18/17 16:46 Urine Culture - Preliminary Urine,Catheterized Assessment and Plan Plan: Assessment: #1. Nonoliguric acute kidney injury secondary to ATN secondary to vomiting and hypotension. Creatinine elevated at 3.08 as of yesterday. Her blood pressure yesterday morning was in the systolic 60-70 range. Now in the systolic 120s. She remains asymptomatic. #2. Chronic kidney disease stage III secondary to nephrosclerosis with baseline creatinine near 1.4. Recent urinalysis and ultrasound noted to be benign. #3. Systolic CHF with ejection fraction of 45% with moderate pulmonary hypertension. Compensated. #4. Anemia. Possible underlying upper GI bleed. Iron deficiency present. Status post 3 doses of IV iron. She also received 1 unit of packed red blood cell transfusion on January 18. #5. Urinary retention status post Arteaga catheter placement. #6. Hypernatremia secondary to lack of oral water intake. Plan: Continue half-normal saline to be run at 125 mL an hour. Encourage oral intake as tolerated. Repeat electrolytes in the morning. Avoid nephrotoxic agents and hypotensive episodes. Hold diuretics for now. Bolus with 0.9% saline if systolic blood pressure remains persistently less than 100. Maintain Arteaga catheter. Continue to monitor renal function and urine output.
[2017-01-19 09:57] LABS: Calcium 8.8 mg/dL (8.4-10.2); Potassium 4.5 mmol/L (3.5-5.1)
[2017-01-19] MEDS: PANTOPRAZOLE 40 MG/10 ML VIAL IV SCH (10:29)
[2017-01-19] MEDS: ISOSORBIDE MONONITRATE ER 30 MG TAB.ER.24H PO SCH (10:29)
[2017-01-19] MEDS: ALLOPURINOL 100 MG TAB PO SCH (10:29)
[2017-01-19] MEDS: SODIUM CHLORIDE 0.45% 1,000 ML IV SCH ×2 (10:29→19:59)
[2017-01-19] MEDS: CARVEDILOL 12.5 MG TAB PO SCH ×2 (10:30→16:52)
[2017-01-19] MEDS: MENTHOL-ZINC OXIDE OINT 113 GM TUBE TOPICAL SCH ×2 (10:30→19:59)
[2017-01-19] MEDS: METOCLOPRAMIDE 5 MG TAB PO SCH ×2 (11:53→16:51)
[2017-01-19 15:29] LABS: Anisocytosis Moderate; Basophils % (A) 0 %; CH 27.2; CHCM 28.4; Eosinophils # (A) 0.1 k/uL (0-0.7); Eosinophils % (A) 3 %; HCT 30.1 % (34.0-46.0); HGB 8.4 gm/dL (11.4-16.0); Hypochromasia Marked; Luc # (Auto) 0.08; Luc % (Auto) 2; Lymphocytes # (A) 0.7 k/uL (1.0-4.8); Lymphocytes % (A) 15 %; MCH 27.1 pg (25.0-35.0); MCHC 28.1 g/dL (31.0-37.0); MCV 96.7 fL (80.0-100.0); Macrocytosis Slight; Mean Platelet Volume 11.3; Monocytes # (A) 0.4 k/uL (0-1.0); Monocytes % (A) 9 %; Neutrophils # (A) 3.4 k/uL (1.3-7.7); Neutrophils % (A) 72 %; Poikilocytosis Slight; RBC 3.11 m/uL (3.80-5.40); RDW 21.5 % (11.5-15.5); WBC 4.8 k/uL (3.8-10.6); WBC (Perox) 4.67
[2017-01-19] MEDS: ATORVASTATIN 40 MG TAB PO SCH (19:59)
[2017-01-20] MEDS ORDERED: ACETAMINOPHEN TAB 325 MG TAB ONE (02:15)
[2017-01-20] MEDS: SODIUM CHLORIDE 0.45% 1,000 ML IV SCH ×3 (04:15→20:04)
[2017-01-20] MEDS: IPRATROPIUM-ALBUTEROL 3 ML NEB INHALATION SCH ×4 (07:24→19:31)
[2017-01-20] MEDS: ALLOPURINOL 100 MG TAB PO SCH (07:42)
[2017-01-20] MEDS: MENTHOL-ZINC OXIDE OINT 113 GM TUBE TOPICAL SCH ×2 (07:42→20:04)
[2017-01-20] MEDS: METOCLOPRAMIDE 5 MG TAB PO SCH ×3 (07:42→17:09)
[2017-01-20] MEDS: PANTOPRAZOLE 40 MG TABLET PO SCH (07:42)
[2017-01-20] MEDS: CARVEDILOL 12.5 MG TAB PO SCH ×2 (07:42→17:09)
[2017-01-20] MEDS: ISOSORBIDE MONONITRATE ER 30 MG TAB.ER.24H PO SCH (07:42)
--- NOTE | 2017-01-20 08:19 | PN ---
DATE OF SERVICE: 01/19/2017 PRESENTING COMPLAINT: Coffee ground emesis, renal failure. INTERVAL HISTORY: This patient with coffee ground emesis. Yesterday, patient had become hypotensive and was given a unit of blood and some fluids. Parent appetite is slightly better, lying in bed. Some reflux is bothering her. Review of systems done for constitutional, cardiovascular, GI, pulmonary; relevant findings as above. Current medications are reviewed that include IV fluids. On examination, temperature 97.8, pulse 69, respiratory rate 18, blood pressure 111/60, pulse ox 99% on 3 L. GENERAL APPEARANCE: Lying in bed, tired -appearing. Eyes pupils equal. Conjunctivae normal. NECK: JVD unable to assess. Mass not palpable. RESPIRATORY: Effort normal. LUNGS: Diminished breath sounds. CARDIOVASCULAR: Heart sounds muffled. Slight edema. ABDOMEN: Distended, soft. Liver and spleen not palpable. PSYCHIATRY: Alert and oriented x3. Mood and affect normal. INVESTIGATIONS: White count 4.8, hemoglobin 8.4. Potassium 4.5, BUN 61, creatinine 3.14, sodium 146. ASSESSMENT: 1. Acute upper gastrointestinal bleed manifesting as coffee ground emesis. Did drop hemoglobin, became symptomatic, was given a unit of blood. 2. Chronic kidney disease, stage III from underlying nephrosclerosis. 3. Persistent atrial fibrillation. 4. Fatty liver. 5. Chronic obstructive pulmonary disease in an ex-smoker. 6. Primary osteoarthritis of multiple joints, bilateral. 7. Obstructive sleep apnea, uses CPAP. 8. Chronic gout. 9. Morbid obesity, body mass index of 32.9. 10. Nonoliguric acute renal failure, likely acute tubular necrosis from hypotension and other factors. PLAN: Patient's IV fluid is being increased. The patient also put on Reglan. Told the patient to be sat up when being fed. Follow.
[2017-01-20 08:38] LABS: Calcium 8.6 mg/dL (8.4-10.2); Potassium 4.5 mmol/L (3.5-5.1)
[2017-01-20 09:23] VITALS: BMI 62.3
--- NOTE | 2017-01-20 11:33 | P.PN ---
Subjective Patient is seen in follow-up for acute kidney injury on chronic kidney disease. Patient has chronic kidney disease stage III with baseline creatinine near 1.4 secondary to nephrosclerosis. Patient presented with coffee-ground emesis. On today's exam she Denies any nausea or vomiting this admission. Denies any chest pain or shortness of breath. Her oral intake has been poor and she feels nauseous. She does have history of urinary retention and a Arteaga catheter was inserted day before yesterday. She is feeling fairly well and denies any other complaints. Objective - Vital Signs Vital signs: Vital Signs Temp 96.8 F L 01/20/17 07:00 Pulse 80 01/20/17 11:25 Resp 20 01/20/17 07:00 BP 132/64 01/20/17 07:00 Pulse Ox 100 01/20/17 07:31 Intake & Output 01/19/17 01/20/17 01/20/17 18:59 06:59 18:59 Intake Total 700 Output Total 400 800 Balance -400 -100 Weight 175.2 kg 175.2 kg Intake: Oral 700 Output: Urine 400 800 Uretheral (Arteaga) 400 Other: Voiding Method Indwelling Catheter Indwelling Catheter Indwelling Catheter # Bowel Movements 0 On examination because of obesity is a difficult exam A chin exam no JVP neck is supple no facial asymmetry Lungs are clear to auscultation fair air entry bilaterally. Obesity makes it difficult for auscultation and percussion Heart sounds are unremarkable no murmur rub gallop she'll seems to be in atrial fibrillation. Abdomen is obese pendulous nontender extremity exams chronic stasis edema of her legs able to move it. Neurologically awake alert oriented no focal motor deficits - Labs CBC & Chem 7: 01/19/17 08:37 01/20/17 07:53 Labs: Abnormal Lab Results - Last 24 Hours (Table) 01/19/17 01/20/17 Range/Units 08:37 07:53 RBC 3.11 L (3.80-5.40) m/uL Hgb 8.4 L (11.4-16.0) gm/dL Hct 30.1 L (34.0-46.0) % MCHC 28.1 L (31.0-37.0) g/dL RDW 21.5 H (11.5-15.5) % Plt Count 117 L (150-450) k/uL Lymphocytes # 0.7 L (1.0-4.8) k/uL BUN 58 H (7-17) mg/dL Creatinine 2.87 H (0.52-1.04) mg/dL Glucose 66 L (74-99) mg/dL Assessment and Plan Plan: Impression. 1. Acute kidney injury secondary to prerenal, nausea vomiting and hypotension. Creatinine slowly improving, creatinine down to 2.87 this morning. 2. Hyponatremia sodium is 148, 146 last 2 days and is down to 143 with hydration. Cause of hyponatremia was acute kidney injury and decreased free water intake and therefore dehydration, and concentration defect by the kidney. 3. 2+ proteinuria on urinalysis but not quantified. 4. Morbid obesity. 5. Systolic dysfunction with ejection fraction 45% with pulmonary hypertension. 6. Possible GI bleed hemoglobin stable. Status post IV infusion of iron and packed cells. 7. Urinary retention with Arteaga catheter. 8. His chronic kidney disease stage III with creatinine of 1.4 but she has proteinuria. Recommendation. Continue IV normal saline for another 24 hours or so until oral intake is established to be adequate. Maintain Arteaga catheter for another 24 hours approximately. Will obtain urine protein to creatinine ratio
[2017-01-20] MEDS: ATORVASTATIN 40 MG TAB PO SCH (20:03)
--- NOTE | 2017-01-20 21:01 | PN ---
DATE OF SERVICE: 01/20/2017 Presenting complaint: Tired. INTERVAL HISTORY: The patient presented with coffee-ground emesis, did drop hemoglobin. Blood pressure went down. The patient received a unit of blood. The patient appetite is coming back and actually doing better after started on Reglan yesterday. Did tolerate breakfast, supper last night. Review systems done for constitutional, cardiovascular, GI, pulmonary; relevant findings as above. Current medications are reviewed. On examination, temperature 96.5, pulse 73, respiratory rate 19, blood pressure 120/64, pulse ox 100% on 2 liters. GENERAL APPEARANCE: Lying in bed, more comfortable. EYES: Pupils equal. Conjunctivae normal. NECK: JVD unable to assess. Mass not palpable. RESPIRATORY: Effort normal. LUNGS: Diminished breath sounds. CARDIOVASCULAR: Heart sounds muffled. Slight edema. ABDOMEN: Distended, soft. Liver and spleen not palpable. PSYCHIATRY: Alert and oriented x3. Mood and affect normal. INVESTIGATIONS: Potassium 4.5, BUN 58, creatinine 2.87. ASSESSMENT: 1. Acute upper gastrointestinal bleed manifesting as coffee-ground emesis, did drop hemoglobin became symptomatic given a unit of blood. 2. Acute blood loss anemia from upper gastrointestinal bleed receiving a unit of blood. 3. Chronic kidney disease, stage III, from underlying nephrosclerosis. 4. Persistent atrial fibrillation. 5. Fatty liver. 6. Chronic obstructive pulmonary disease in an ex-smoker. 7. Primary osteoarthritis of multiple joints, bilateral. 8. Obstructive sleep apnea, uses CPAP. 9. Chronic gout. 10. Morbid obesity, body mass index of 32.9. 11. Nonoliguric acute renal failure, likely acute tubular necrosis from hypotension and other factors, starting to turn around. PLAN: Continue with IV fluids. Overall doing better. Keep the patient on Reglan for at least another 24 hours. Care was discussed with the patient.
[2017-01-20 21:07] LABS: Glucose,Whole Blood 81 mg/dL (75-99)
[2017-01-20] MEDS: ACETAMINOPHEN TAB 325 MG TAB PO PRN (21:39)
[2017-01-21] MEDS: SODIUM CHLORIDE 0.45% 1,000 ML IV SCH ×2 (02:52→11:10)
[2017-01-21] MEDS: CARVEDILOL 12.5 MG TAB PO SCH ×2 (08:05→17:06)
[2017-01-21] MEDS: ISOSORBIDE MONONITRATE ER 30 MG TAB.ER.24H PO SCH (08:05)
[2017-01-21] MEDS: MENTHOL-ZINC OXIDE OINT 113 GM TUBE TOPICAL SCH ×2 (08:05→21:11)
[2017-01-21] MEDS: ALLOPURINOL 100 MG TAB PO SCH (08:05)
[2017-01-21] MEDS: METOCLOPRAMIDE 5 MG TAB PO SCH ×3 (08:05→17:06)
[2017-01-21] MEDS: PANTOPRAZOLE 40 MG TABLET PO SCH (08:05)
[2017-01-21] MEDS: ACETAMINOPHEN TAB 325 MG TAB PO PRN (10:33)
--- NOTE | 2017-01-21 11:46 | P.PN ---
Subjective Patient is seen in follow-up for acute kidney injury on chronic kidney disease. Patient has chronic kidney disease stage III with baseline creatinine near 1.4 secondary to nephrosclerosis. Patient presented with coffee-ground emesis. On today's exam she Denies any nausea or vomiting this admission. Denies any chest pain or shortness of breath. Her oral intake has improved. She continues to have a Arteaga catheter. She does have history of urinary retention and a Arteaga catheter was inserted on 01/18/2017 . She is feeling fairly well and denies any other complaints. Objective - Vital Signs Vital signs: Vital Signs Temp 98.5 F 01/21/17 07:00 Pulse 58 L 01/21/17 07:00 Resp 18 01/21/17 07:00 BP 110/59 01/21/17 07:00 Pulse Ox 96 01/21/17 07:00 Intake & Output 01/20/17 01/21/17 01/21/17 18:59 06:59 18:59 Intake Total 300 Output Total 400 600 Balance -400 -300 Weight 175.2 kg 180.7 kg Intake: Oral 300 Output: Urine 400 600 Other: Voiding Method Indwelling Catheter Indwelling Catheter Indwelling Catheter # Bowel Movements 1 She is morbidly obese. HEENT exam is difficult because of this there is no facial asymmetry neck is supple. Lungs are difficult to examine again but normal as best as one can hear her breath sounds. Heart sounds are again distant but normal Abdomen is difficult exam because of morbid obesity and large protuberant abdomen. Nontender Extremity exam reveals 2+ chronic stasis edema Neurologically awake alert oriented mostly bedridden. No focal motor deficit - Labs CBC & Chem 7: 01/19/17 08:37 01/20/17 07:53 Labs: Microbiology - Last 24 Hours (Table) 01/18/17 16:46 Urine Culture - Final Urine,Catheterized Enterococcus faecalis Assessment and Plan Plan: Impression. 1. Acute kidney injury secondary to prerenal, nausea vomiting and hypotension. Creatinine slowly improving, creatinine down to 2.87 yesterday and today's labs are pending this morning. 2. Hypernatremia sodium is improved from 148 11/29/1942 as of yesterday with hydration. Cause of hypernatremia was acute kidney injury and decreased free water intake and therefore dehydration, and concentration defect by the kidney. 3. 2+ proteinuria on urinalysis but urine protein is reported as less than 12 mg/dL and a urine creatinine is 114 therefore no significant proteinuria 4. Morbid obesity. No obesity related FSGS based on a bowel urine protein to creatinine ratio 5. Systolic dysfunction with ejection fraction 45% with pulmonary hypertension. 6. Possible GI bleed hemoglobin stable. Status post IV infusion of iron and packed cells. 7. Urinary retention with Arteaga catheter. 8. His chronic kidney disease stage III with creatinine of 1.4 but she has proteinuria. Recommendation. DC IV fluids and DC Arteaga catheter and check for postvoid residual. This may be somewhat difficult given her body habitus. Repeat labs tomorrow. If she is discharged she needs to be followed up because of the incomplete resolution of acute kidney injury and resins of chronic kidney disease.
[2017-01-21] MEDS: IPRATROPIUM-ALBUTEROL 3 ML NEB INHALATION SCH ×4 (13:36→19:44)
[2017-01-21] MEDS: ATORVASTATIN 40 MG TAB PO SCH (21:11)
[2017-01-22] MEDS: IPRATROPIUM-ALBUTEROL 3 ML NEB INHALATION SCH ×3 (07:25→15:44)
[2017-01-22 08:25] LABS: Glucose,Whole Blood 88 mg/dL (75-99)
[2017-01-22] MEDS: MENTHOL-ZINC OXIDE OINT 113 GM TUBE TOPICAL SCH (09:04)
[2017-01-22] MEDS: ISOSORBIDE MONONITRATE ER 30 MG TAB.ER.24H PO SCH (09:04)
[2017-01-22] MEDS: ALLOPURINOL 100 MG TAB PO SCH (09:04)
[2017-01-22] MEDS: CARVEDILOL 12.5 MG TAB PO SCH ×2 (09:04→17:14)
[2017-01-22] MEDS: PANTOPRAZOLE 40 MG TABLET PO SCH (09:04)
[2017-01-22 09:13] VITALS: BP 106/56; RESP 18; TEMP 96.3
[2017-01-22] MEDS ORDERED: DOCUSATE 100 MG CAP PO SCH (09:30)
[2017-01-22 09:31] LABS: Calcium 8.7 mg/dL (8.4-10.2); Potassium 4.3 mmol/L (3.5-5.1)
--- NOTE | 2017-01-22 09:41 | PN ---
DATE OF SERVICE: 01/21/2017 PRESENTING COMPLAINT: Lying in bed. INTERVAL HISTORY: This patient presented with coffee-ground emesis and did drop hemoglobin and did drop did get blood transfusion, hepatitis came back, doing well on the Reglan. Daughter at the bedside. Review of systems done for constitutional, cardiovascular, GI, pulmonary; relevant findings as above. Current medications are reviewed. On examination, temperature 96.5, pulse 54, respiration 16, blood pressure 125/73, pulse ox 95% on 4 L. GENERAL APPEARANCE: Lying in bed, comfortable. EYES: Pupils equal. Conjunctivae normal. NECK: JVD not raised. Mass not palpable. Respiratory effort normal. LUNGS: Diminished breath sounds. CARDIOVASCULAR: Heart sounds muffled, slight edema. ABDOMEN: Distended, soft. Liver and spleen not palpable. PSYCHIATRY: Alert and oriented x3. Mood and affect was normal. INVESTIGATIONS: BUN 58, creatinine 2.27 as of yesterday. ASSESSMENT: 1. Acute upper gastrointestinal bleed with coffee-ground emesis, did drop hemoglobin, became symptomatic, did receive unit of blood. 2. Acute blood loss anemia from upper gastrointestinal bleed, got a unit of blood. 3. Chronic kidney disease stage III, from underlying nephrosclerosis. 4. Persistent atrial fibrillation. 5. Fatty liver. 6. Chronic obstructive pulmonary disease in an ex-smoker. 7. Primary osteoarthritis of multiple joints, bilateral. 8. Obstructive sleep apnea, uses CPAP. 9. Chronic gout. 10. Morbid obesity, body mass index of 32.9. 11. Nonoliguric acute renal failure, likely acute tubular necrosis from hypotension and other facts, continues to improve. PLAN: Care was discussed with the patient and daughter at the bedside. Will DC the Reglan. Repeat BMP in the morning. Looking at the patient doing better. ECF hopefully tomorrow.
[2017-01-22 09:50] LABS: Anisocytosis Moderate; Basophils % (A) 0 %; CH 27.3; CHCM 28.8; Eosinophils # (A) 0.1 k/uL (0-0.7); Eosinophils % (A) 3 %; HDW 3.37; HGB 9.1 gm/dL (11.4-16.0); Hypochromasia Marked; Luc # (Auto) 0.06; Luc % (Auto) 1; Lymphocytes # (A) 0.5 k/uL (1.0-4.8); Lymphocytes % (A) 11 %; MCH 28.1 pg (25.0-35.0); MCHC 29.4 g/dL (31.0-37.0); MCV 95.7 fL (80.0-100.0); Macrocytosis Slight; Mean Platelet Volume 9.7; Monocytes # (A) 0.3 k/uL (0-1.0); Monocytes % (A) 6 %; Neutrophils # (A) 3.6 k/uL (1.3-7.7); Neutrophils % (A) 79 %; RBC 3.24 m/uL (3.80-5.40); RDW 21.7 % (11.5-15.5); WBC 4.6 k/uL (3.8-10.6)
--- NOTE | 2017-01-22 10:05 | P.PN ---
Subjective Patient is seen in follow-up for acute kidney injury on chronic kidney disease. Patient has chronic kidney disease stage III with baseline creatinine near 1.4 secondary to nephrosclerosis. Patient presented with coffee-ground emesis. Denies any nausea or vomiting this admission. Renal function improving with creatinine down to 2.6 today. Denies any chest pain or shortness of breath. Her oral intake has been improving. She does have history of urinary retention - Arteaga catheter was discontinued on January 21. She has been voiding. Vital signs are stable. General: The patient appeared well nourished and normally developed. HEENT: Head exam is unremarkable. Neck is without jugular venous distension. LUNGS: Lungs are clear to auscultation and percussion. Breath sounds decreased. HEART: Rate and Rhythm are regular. First and second heart sounds normal. No murmurs, rubs or gallops. ABDOMEN: Abdominal exam reveals normal bowel sounds. Non-tender and non- distended. No evidence of peritonitis. EXTREMITITES: Chronic changes. Objective - Vital Signs Vital signs: Vital Signs Temp 96.3 F L 01/22/17 07:00 Pulse 72 01/22/17 07:35 Resp 18 01/22/17 07:00 BP 106/56 01/22/17 07:00 Pulse Ox 95 01/22/17 07:00 Intake & Output 01/21/17 01/22/17 01/22/17 18:59 06:59 18:59 Output Total 400 Balance -400 Weight 180.7 kg Output: Urine 400 Other: Voiding Method Indwelling Catheter Bedpan Bedpan # Voids 0 # Bowel Movements 0 - Labs CBC & Chem 7: 01/22/17 08:37 01/22/17 08:41 Labs: Abnormal Lab Results - Last 24 Hours (Table) 01/22/17 01/22/17 Range/Units 08:37 08:41 RBC 3.24 L (3.80-5.40) m/uL Hgb 9.1 L (11.4-16.0) gm/dL Hct 31.0 L (34.0-46.0) % MCHC 29.4 L (31.0-37.0) g/dL RDW 21.7 H (11.5-15.5) % BUN 50 H (7-17) mg/dL Creatinine 2.62 H (0.52-1.04) mg/dL Assessment and Plan Plan: Assessment: #1. Nonoliguric acute kidney injury secondary to ATN secondary to vomiting and hypotension. Improving with creatinine down to 2.6 today. She had an episode of hypotension this admission with systolic blood pressure in the 70s which is now resolved. #2. Chronic kidney disease stage III secondary to nephrosclerosis with baseline creatinine near 1.4. Recent urinalysis and ultrasound noted to be benign. #3. Systolic CHF with ejection fraction of 45% with moderate pulmonary hypertension. Compensated. #4. Anemia. Possible underlying upper GI bleed. Iron deficiency present. Status post 3 doses of IV iron. She also received 1 unit of packed red blood cell transfusion on January 18. #5. Urinary retention status post Arteaga catheter placement. #6. Hypernatremia secondary to lack of oral water intake. Improved. Plan: She remains off all IV fluids. Oral intake is improved. Repeat electrolytes in the morning. Avoid nephrotoxic agents and hypotensive episodes. Hold diuretics for now. Bolus with 0.9% saline if systolic blood pressure remains persistently less than 100.
[2017-01-22 11:05] VITALS: PULSE 72
[2017-01-22 12:30] LABS: Manual Review Performed; Target Cells Present
[2017-01-22 12:31] LABS: Polychromasia Present
--- NOTE | 2017-01-22 15:09 | DS ---
DATE OF ADMISSION: 01/13/2017 DATE OF DISCHARGE: FINAL DIAGNOSIS(ES): 1. Acute upper gastrointestinal bleed coffee-ground emesis, causing acute blood loss anemia, having the patient receive 1 unit of blood. 2. Chronic kidney disease, stage III from underlying nephrosclerosis. 3. Persistent atrial fibrillation, not a candidate for anticoagulation. 4. Fatty liver. 5. Chronic obstructive pulmonary disease in an ex-smoker. 6. Primary osteoarthritis in multiple joints, bilateral. 7. Obstructive sleep apnea, uses CPAP. 8. Chronic gout. 9. Morbid obesity, body mass index of 32.9. 10. Nonoliguric acute renal failure, likely acute tubular necrosis from hypertension present on admission. 11. Persistent atrial fibrillation. HOSPITAL COURSE: This patient presented with coffee-ground emesis. Hemoglobin did drop down to 8. Patient was hypotensive. Has given a unit of blood. At the time of discharge, hemoglobin 9.1. Patient also felt to be acute renal failure/ acute tubular necrosis. Creatinine did climb up to 3.24. Diuretics were held. Creatinine did come down to 2.62, though this was up from before. Patient has been tolerating oral liquids expected to come down a bit more slowly. On the day of discharge, care was discussed in detail with the patient. Patient is tolerating a diet, answering questions. On exam: LUNGS: Distant breath sounds. CARDIOVASCULAR: Heart sounds distant. ABDOMEN: Soft, nontender. CONSULTATION: Dr. Eduardo and colleagues from nephrology. Dr. Patel from GI manage the gastrointestinal bleed conservatively. Dr. Lupis Banegas from cardiology. Today care was discussed with Dr. Eduardo. The patient will have repeat labs as an outpatient and follow with nephrology. Care was discussed with the patient. Questions were answered. Discharge planning more than 35 minutes. DISCHARGE MEDICATIONS: 1. Ventolin HFA 2 puffs q.4 p.r.n. 2. Lac-Hydrin 12% topical t.i.d. 3. Folic acid 1 mg daily. 4. DuoNeb q.i.d. 5. Coreg 25 mg p.o. b.i.d. 6. Imdur ER 30 mg daily. 7. Tylenol 650 mg q.4 p.r.n. 8. Dulcolax 10 mg rectal daily p.r.n. 9. Milk of magnesia 2500 mg p.o. daily p.r.n. 10. Vitamin D3 2000 units p.o. daily. 11. ( ) Fleet 133 mL rectal daily p.r.n. 12. Aspirin 81 mg p.o. daily to be started in 7 days from discharge. 13. Lipitor 40 mg p.o. q.h.s. 14. Calmoseptine topical b.i.d. 15. Allopurinol 200 mg a day. 16. Protonix 40 mg p.o. daily. LABS: BMP in 3 days. DISPOSITION: [place] [facility] . FULL CODE. Follow-up with Dr. Rodriguez on 01/23/2017. Follow-up with Dr. Eduardo in 10 days.
[2017-01-22] MEDS: ACETAMINOPHEN TAB 325 MG TAB PO PRN (15:52)
== END 2017-01-22 18:26 | DRG 377 ==
LOC: EC 11:34 → 6SEL 13:43 → 4MS4W 01-17 18:38
PROVIDERS: ADMIT Hospitalist; ATTEND Hospitalist
PROC: 30233N1 Transfusion of Nonautologous Red Blood Cells into Peripheral Vein, Percutaneous Approach (ICD-10-PCS; principal; 2017-01-18)
DX: K29.71 Gastritis, unspecified, with bleeding (principal); N17.0 Acute kidney failure with tubular necrosis; E87.0 Hyperosmolality and hypernatremia; I48.1 Persistent atrial fibrillation; D62 Acute posthemorrhagic anemia; I27.2 Other secondary pulmonary hypertension; I95.9 Hypotension, unspecified; I48.2 Chronic atrial fibrillation; K76.0 Fatty (change of) liver, not elsewhere classified; J44.9 Chronic obstructive pulmonary disease, unspecified; K27.4 Chronic or unspecified peptic ulcer, site unspecified, with hemorrhage; E66.01 Morbid (severe) obesity due to excess calories; E86.1 Hypovolemia; I12.9 Hypertensive chronic kidney disease with stage 1 through stage 4 chronic kidney disease, or unspecified chronic kidney disease; E87.5 Hyperkalemia; D63.1 Anemia in chronic kidney disease; G47.33 Obstructive sleep apnea (adult) (pediatric); J45.909 Unspecified asthma, uncomplicated; K21.9 Gastro-esophageal reflux disease without esophagitis; M15.9 Polyosteoarthritis, unspecified; M1A.9XX0 Chronic gout, unspecified, without tophus (tophi); N18.3 Chronic kidney disease, stage 3 (moderate); R33.9 Retention of urine, unspecified; R32 Unspecified urinary incontinence; D50.9 Iron deficiency anemia, unspecified; Z68.45 Body mass index [BMI] 70 or greater, adult; Z79.82 Long term (current) use of aspirin; Z79.899 Other long term (current) drug therapy; Z87.891 Personal history of nicotine dependence; Z82.49 Family history of ischemic heart disease and other diseases of the circulatory system
CPT/HCPCS: 36415; 71010; 80048; 80053; 80061; 81001; 82533; 82550; 82553; 82570; 82728; 83540; 83550; 84156; 84484; 85025; 85027; 85610; 85730; 86850; 86900; 86901; 86920; 87077; 87086; 87186; 93005; 93306; 94640; 94660; 94760; 96374; 99285

== ENCOUNTER 2017-02-23 13:52 | Inpatient (IN) | payer MEDICARE, OTHER ==
[2017-02-23 15:02] LABS: Calcium 9.1 mg/dL (8.4-10.2); Potassium 4.2 mmol/L (3.5-5.1); Total Bilirubin 0.8 mg/dL (0.2-1.3); Total Protein 5.7 g/dL (6.3-8.2)
--- NOTE | 2017-02-23 15:06 | ED ---
General Adult HPI - General Chief complaint: GI Bleed Stated complaint: Poss GI Bleed Time Seen by Provider: 02/23/17 14:00 Source: EMS, RN notes reviewed Mode of arrival: EMS Limitations: no limitations - History of Present Illness Initial comments: Patient is a 66-year-old female presents to the emergency room for evaluation of possible GI bleed. Patient states around 4:00 this morning she had 2 bowel movements an episode of vomiting. Patient states that she was told by one of the [employer] employees that her stools were very dark. Patient states she was sent here to rule out GI bleed. Patient does state that she occasionally receives iron infusions. Patient has a history of iron deficiency anemia. Patient also states that she takes iron pills daily. Patient denies any current nausea. Patient states her first bowel movement this morning was formed. Patient states her second bowel movement was diarrhea. Patient denies new foods. Patient denies recent travel outside the country. Patient denies sick contacts. Patient denies lightheadedness or dizziness. Patient denies increased shortness of breath or chest pain. Patient denies abdominal pain. Patient denies pain or burning while urinating. Patient denies any fevers or chills. - Related Data Home Medications Medication Instructions Recorded Confirmed Albuterol Inhaler [Ventolin Hfa 2 puff INHALATION RT-Q4H PRN 12/19/16 02/23/17 Inhaler] Folic Acid 1 mg PO DAILY@1700 12/19/16 02/23/17 Ipratropium-Albuterol Nebulize 3 ml INHALATION RT-QID 12/19/16 02/23/17 [Duoneb 0.5 mg-3 mg/3 ml Soln] Acetaminophen Tab [Tylenol] 650 mg PO Q4H PRN 12/25/16 02/23/17 Magnesium Hydroxide [Milk of 2,400 mg PO DAILY PRN 12/25/16 02/23/17 Magnesia] Cholecalciferol [Vitamin D3] 2,000 unit PO DAILY@1700 12/30/16 02/23/17 Aspirin 81 mg PO DAILY@0 02/23/17 02/23/17 Bisacodyl [Dulcolax] 10 mg RECTAL DAILY PRN 02/23/17 02/23/17 Carbamide Peroxide [Debrox Otic] 8 drops RIGHT EAR HS 02/23/17 02/23/17 Carvedilol [Coreg] 25 mg PO BID 02/23/17 02/23/17 Ensure Clear 1 can PO TID 02/23/17 02/23/17 Ferrous Sulfate [Feosol] 325 mg PO DAILY@1700 02/23/17 02/23/17 Lactulose 10 gm PO DAILY PRN 02/23/17 02/23/17 Menthol/Zinc Oxide [Calmoseptine 1 applic TOPICAL BID 02/23/17 02/23/17 Ointment] Previous Rx's Medication Instructions Recorded Isosorbide Mononitrate ER [Imdur] 30 mg PO DAILY tab.er.24h 12/22/16 Atorvastatin [Lipitor] 40 mg PO HS tab 01/05/17 Allopurinol [Zyloprim] 200 mg PO DAILY tab 01/22/17 Pantoprazole [Protonix] 40 mg PO DAILY tablet. 01/22/17 Allergies Allergy/AdvReac Type Severity Reaction Status Date / Time No Known Allergies Allergy Verified 02/23/17 14:38 Review of Systems ROS Statement: Those systems with pertinent positive or pertinent negative responses have been documented in the HPI. ROS Other: All systems not noted in ROS Statement are negative. Past Medical History Past Medical History: Atrial Fibrillation, Asthma, Heart Failure, Hypertension, Osteoarthritis (OA), Pneumonia, Sleep Apnea/CPAP/BIPAP Additional Past Medical History / Comment(s): BRUNILDA with CPAP, gout bilateral legs /feet, arthritis multiple joints, sinus problems, past left lower leg cellulitis and wound, UTIs. Morbid obesity History of Any Multi-Drug Resistant Organisms: None Reported Past Surgical History: Section, Ear Surgery Additional Past Surgical History / Comment(s): Debridement bilateral pedal toenails, colonoscopy-normal, L ear benign tumor removed, x 2. pt currently resides at [facility] Past Anesthesia/Blood Transfusion Reactions: No Reported Reaction Past Psychological History: No Psychological Hx Reported Additional Psychological History / Comment(s): Lives at [facility] Smoking Status: Former smoker Past Alcohol Use History: Rare Additional Past Alcohol Use History / Comment(s): Pt states she started smoking in 1970 and quit in 2002 Past Drug Use History: None Reported - Past Family History Mother Family Medical History: Cancer Additional Family Medical History / Comment(s): Mother of colon cancer at the age of 54 yrs. Father Family Medical History: Myocardial Infarction ([place]) Additional Family Medical History / Comment(s): Father of a massive [place] at the age of 60 yrs. General Exam - General Exam Comments Initial Comments: Laying in exam room, no distress. Limitations: no limitations General appearance: alert, in no apparent distress Head exam: Present: atraumatic, normocephalic, normal inspection Eye exam: Present: normal appearance ENT exam: Present: normal exam Neck exam: Present: normal inspection Respiratory exam: Present: normal lung sounds bilaterally. Absent: respiratory distress Cardiovascular Exam: Present: regular rate, normal rhythm, normal heart sounds GI/Abdominal exam: Present: soft, normal bowel sounds. Absent: distended, tenderness, guarding, rebound, rigid Rectal exam: Present: normal inspection, normal rectal tone Extremities exam: Present: normal inspection Back exam: Present: normal inspection Neurological exam: Present: alert, oriented X3, CN II-XII intact, normal gait Psychiatric exam: Present: normal affect, normal mood Skin exam: Present: warm, dry, intact, normal color. Absent: rash Course Vital Signs 02/23/17 02/23/17 14:05 19:23 Temperature 96.7 F L 95.5 F L Pulse Rate 67 66 Respiratory 18 18 Rate Blood Pressure 113/57 124/66 O2 Sat by Pulse 100 100 Oximetry Medical Decision Making - Medical Decision Making Patient is a 66-year-old female presents emergency room for evaluation of hematochezia. Nurse staff report states patient began with dark tarry stools around 2 AM this morning. Fecal occult positive. Patient's hemoglobin stable. Patient's hemoglobin compared to lab draw from yesterday which is slightly improved. Case discussed with Dr. Reynolds. Case also discussed with Dr. Fletcher agreed to admit patient. - Lab Data Result diagrams: 02/23/17 14:08 02/23/17 14:08 Lab Results 02/23/17 02/23/17 02/23/17 Range/Units 14:08 14:08 14:08 WBC 3.7 L (3.8-10.6) k/uL RBC 2.90 L (3.80-5.40) m/uL Hgb 8.9 L (11.4-16.0) gm/dL Hct 30.0 L (34.0-46.0) % MCV 103.8 H (80.0-100.0) fL MCH 30.9 (25.0-35.0) pg MCHC 29.8 L (31.0-37.0) g/dL RDW 24.0 H (11.5-15.5) % Plt Count 60 L (150-450) k/uL Neutrophils % 74 % Lymphocytes % 14 % Monocytes % 9 % Eosinophils % 1 % Basophils % 0 % Neutrophils # 2.8 (1.3-7.7) k/uL Lymphocytes # 0.5 L (1.0-4.8) k/uL Monocytes # 0.3 (0-1.0) k/uL Eosinophils # 0.1 (0-0.7) k/uL Basophils # 0.0 (0-0.2) k/uL Manual Slide Review Performed Hypochromasia Marked Poikilocytosis Slight Anisocytosis Moderate Macrocytosis Marked Sodium 145 (137-145) mmol/L Potassium 4.2 (3.5-5.1) mmol/L Chloride 109 H (98-107) mmol/L Carbon Dioxide 28 (22-30) mmol/L Anion Gap 8 mmol/L BUN 28 H (7-17) mg/dL Creatinine 2.30 H (0.52-1.04) mg/dL Est GFR (MDRD) Af Amer 26 (>60 ml/min/1.73 sqM) Est GFR (MDRD) Non-Af 21 (>60 ml/min/1.73 sqM) Glucose 77 (74-99) mg/dL Calcium 9.1 (8.4-10.2) mg/dL Total Bilirubin 0.8 (0.2-1.3) mg/dL AST 35 (14-36) U/L ALT 35 (9-52) U/L Alkaline Phosphatase 127 H (38-126) U/L Total Protein 5.7 L (6.3-8.2) g/dL Albumin 2.7 L (3.5-5.0) g/dL Amylase 32 (30-110) U/L Lipase 28 (23-300) U/L Vitamin B12 964 pg/mL Stool Occult Blood (Negative) 02/23/17 Range/Units 14:48 WBC (3.8-10.6) k/uL RBC (3.80-5.40) m/uL Hgb (11.4-16.0) gm/dL Hct (34.0-46.0) % MCV (80.0-100.0) fL MCH (25.0-35.0) pg MCHC (31.0-37.0) g/dL RDW (11.5-15.5) % Plt Count (150-450) k/uL Neutrophils % % Lymphocytes % % Monocytes % % Eosinophils % % Basophils % % Neutrophils # (1.3-7.7) k/uL Lymphocytes # (1.0-4.8) k/uL Monocytes # (0-1.0) k/uL Eosinophils # (0-0.7) k/uL Basophils # (0-0.2) k/uL Manual Slide Review Hypochromasia Poikilocytosis Anisocytosis Macrocytosis Sodium (137-145) mmol/L Potassium (3.5-5.1) mmol/L Chloride (98-107) mmol/L Carbon Dioxide (22-30) mmol/L Anion Gap mmol/L BUN (7-17) mg/dL Creatinine (0.52-1.04) mg/dL Est GFR (MDRD) Af Amer (>60 ml/min/1.73 sqM) Est GFR (MDRD) Non-Af (>60 ml/min/1.73 sqM) Glucose (74-99) mg/dL Calcium (8.4-10.2) mg/dL Total Bilirubin (0.2-1.3) mg/dL AST (14-36) U/L ALT (9-52) U/L Alkaline Phosphatase (38-126) U/L Total Protein (6.3-8.2) g/dL Albumin (3.5-5.0) g/dL Amylase (30-110) U/L Lipase (23-300) U/L Vitamin B12 pg/mL Stool Occult Blood Positive H (Negative) Disposition Clinical Impression: Hematochezia Disposition: ADMITTED IP TO THIS [facility] Referrals: Jake Rodriguez MD [Primary Care Provider] - 1-2 days Decision Date: 02/23/17
[2017-02-23 15:08] LABS: Anisocytosis Moderate; Basophils % (A) 0 %; CH 29.7; Eosinophils # (A) 0.1 k/uL (0-0.7); Eosinophils % (A) 1 %; HDW 3.46; HGB 8.9 gm/dL (11.4-16.0); Hypochromasia Marked; Luc # (Auto) 0.07; Luc % (Auto) 2; Lymphocytes # (A) 0.5 k/uL (1.0-4.8); Lymphocytes % (A) 14 %; MCH 30.9 pg (25.0-35.0); MCHC 29.8 g/dL (31.0-37.0); MCV 103.8 fL (80.0-100.0); Macrocytosis Marked; Mean Platelet Volume 9.1; Monocytes # (A) 0.3 k/uL (0-1.0); Monocytes % (A) 9 %; Neutrophils # (A) 2.8 k/uL (1.3-7.7); Neutrophils % (A) 74 %; Poikilocytosis Slight; WBC 3.7 k/uL (3.8-10.6); WBC (Perox) 3.69
[2017-02-23] MEDS ORDERED: ACETAMINOPHEN TAB 325 MG TAB PO PRN (16:41)
[2017-02-23] MEDS ORDERED: LACTULOSE 20 GM/30 ML CUP PO PRN (16:41)
[2017-02-23] MEDS ORDERED: ALBUTEROL NEBULIZED 2.5 MG/3 ML INHALATION PRN (16:41)
[2017-02-23] MEDS ORDERED: MORPHINE SULFATE 4 MG/ML SYRINGE IV PRN (16:44)
[2017-02-23] MEDS ORDERED: HYDROcodone/APAP 5-325MG 1 EACH TAB PO PRN (16:44)
[2017-02-23] MEDS ORDERED: NALOXONE 0.4 MG/ML 1 ML VIAL IV PRN (16:44)
[2017-02-23] MEDS ORDERED: ONDANSETRON 4 MG/2 ML VIAL IVP PRN (16:44)
[2017-02-23] MEDS ORDERED: FOLIC ACID 1 MG TAB PO SCH (17:00)
[2017-02-23] MEDS: SODIUM CHLORIDE 0.9% 1,000 ML IV SCH (17:22)
[2017-02-23 17:30] LABS: Manual Review Performed
--- NOTE | 2017-02-23 18:54 | HP ---
DATE OF ADMISSION: Patient is a 66-year-old, who came in with the possibility of upper gastrointestinal bleed. Patient had 2 bowel movements, which were soft and dark. Patient does take iron supplementation at home, but normally she is constipated. This time she was having loose bowel movements. Patient denied any abdominal pain. Patient denied any nausea or vomiting. Patient denied any fever, chills, diarrhea. Patient has multiple other medical problems. Patient is morbidly obese. Does have some chronic venostasis dermatosis and patient believed to have congestive heart failure, although his EF is normal and patient is not on Lasix at home. Patient had chronic kidney disease stage III to IV with baseline creatinine around 2.3 and now is 2.3. Patient's BUN is 28. Patient has mildly low platelet count and patient is on aspirin. Does not take any Advil. Patient has sleep apnea, uses CPAP machine. A very pleasant female who denies any dysuria. REVIEW OF SYSTEMS: CONSTITUTIONAL: No fever, no malaise, no fatigue. HEENT: No recent visual problems or hearing problems. Denied any sore throat. CARDIOVASCULAR: No chest pain, orthopnea, PND, no palpitations, no syncope. PULMONARY: No shortness of breath, no cough, no hemoptysis. GASTROINTESTINAL: As described in HPI. NEUROLOGICAL: No headaches, no weakness, no numbness. HEMATOLOGICAL: Denies any bleeding or petechiae. GENITOURINARY: Denies any burning micturition, frequency, or urgency. MUSCULOSKELETAL/RHEUMATOLOGICAL: Denies any joint pain, swelling, or any muscle pain. ENDOCRINE: Denies any polyuria or polydipsia. The rest of the 14 point review of systems is negative. Medications include: Albuterol, folic acid, albuterol ipratropium, acetaminophen, magnesium oxide, cholecalciferol, aspirin, aspirin, bisacodyl, Debrox otic, Coreg, Ensure Plus. Patient had previous episodes of GI bleed in the past. I still have to review her if she had any upper GI endoscopy. Patient says that she had a gastric ulcer disease in the past, peptic ulcer disease in the past. Patient also takes Protonix daily. ALLERGIES: No known drug allergies. PAST MEDICAL HISTORY: Atrial fibrillation, rate controlled at this point of time not on anticoagulation, history of asthma, hypertension, osteoarthritis, sleep apnea, chronic venostasis dermatosis and chronic bilateral lower limb edema. Patient uses CPAP machine. Morbidly obese, section, ear surgery in the past. SOCIAL HISTORY: Former smoker. Denied any alcohol abuse or any drug abuse. FAMILY HISTORY: Mother had cancer. Mother of colon cancer at age 54. Father had myocardial infarction. PHYSICAL EXAMINATION: Temperature is 96.7, pulse of 61, respiratory rate of 18, blood pressure is 110/57, saturating at 100% on 2 liters of O2 by nasal cannula. GENERAL: Morbidly obese. Alert and oriented x3. HEENT: Pupils are round and equally reacting to light. EOMI. No scleral icterus. No conjunctival pallor. Normocephalic, atraumatic. No pharyngeal erythema. No thyromegaly. CARDIOVASCULAR: S1 and S2 present. No murmurs, rubs, or gallops. PULMONARY: Chest is clear to auscultation, no wheezing or crackles. ABDOMEN: Soft, nontender, nondistended, normoactive bowel sounds. No palpable organomegaly. MUSCULOSKELETAL: No joint swelling or deformity. EXTREMITIES: Patient has chronic venostasis dermatosis and chronic pedal edema, which is nonpitting. NEUROLOGICAL: Gross neurological examination did not reveal any focal deficits. SKIN: No rashes. LABORATORY DATA: CBC, CMP are abnormal for elevated MCV of 103.8, hemoglobin is 8.9, fairly stable at that level though, but will monitor hemoglobin with clinical monitoring of gastrointestinal bleed. Creatinine of 2.3. I do not have any chest x-ray. Overall the patient is saturating well at 100% on 2 liters. The patient does use her oxygen during nighttime and CPAP during nighttime. ASSESSMENT AND PLAN: 1. Possibility of upper gastrointestinal bleed. Patient will be started on ( ) Protonix. GI will be consult, will monitor for any clinical signs or symptoms of GI bleed along with repeat hemoglobin tomorrow. 2. Chronic kidney disease, stage IV. Patient's creatinine has remained stable. 3. Atrial fibrillation, rate controlled. Patient cannot be on anticoagulation. Even aspirin, I have to hold it at this point of time. Patient has normal ejection fraction. 4. Patient has moderate pulmonary hypertension. 5. Patient has probably hypertensive nephrosclerosis. 6. Patient has chronic anemia, acute on chronic anemia along with acute blood loss anemia from GI bleed. Chronic anemia is probably iron deficiency from her previous gastrointestinal bleed. 7. Asthma without any acute exacerbation. 8. My suspicion is low that patient has either chronic diastolic or systolic dysfunction.
[2017-02-23] MEDS ORDERED: CARBAMIDE PEROXIDE 6.5% DROPS 15 ML BTL RIGHT EAR SCH (21:00)
[2017-02-23] MEDS ORDERED: ATORVASTATIN 40 MG TAB PO SCH (21:00)
[2017-02-23] MEDS: PANTOPRAZOLE 40 MG/10 ML VIAL IVP SCH (21:02)
[2017-02-23] MEDS: CARVEDILOL 12.5 MG TAB PO SCH (21:03)
[2017-02-23 21:18] LABS: Amorphous Sediment,Urine Occasional /hpf; Appearance,Urine Cloudy (Clear); Bacteria,Urine Many /hpf; Bilirubin,Urine Negative (Negative); Glucose,Urine (UA) Negative (Negative); Ketones,Urine Negative (Negative); Leukocyte Esterase,Urine Large (Negative); Mucus,Urine Rare /hpf; Nitrite,Urine Negative (Negative); PH, Urine 5.5 (5.0-8.0); Particle Count 63865; Protein,Urine 1+ (Negative); RBC,Urine 3 /hpf (0-5); Specific Gravity,Urine 1.013 (1.001-1.035); Squamous Epithelial Cell,Urine 4 /hpf (0-4); UA Billing (MACRO vs. MICRO) MICRO; Urobilinogen,Urine <2.0 mg/dL (<2.0); WBC,Urine 41 /hpf (0-5)
[2017-02-24 08:43] LABS: Calcium 9.1 mg/dL (8.4-10.2); Potassium 4.3 mmol/L (3.5-5.1)
[2017-02-24 08:47] VITALS: BP 105/53; PULSE 75; RESP 20; TEMP 96.9
[2017-02-24] MEDS ORDERED: ALLOPURINOL 100 MG TAB PO SCH (09:00)
[2017-02-24] MEDS ORDERED: ISOSORBIDE MONONITRATE ER 30 MG TAB.ER.24H PO SCH (09:00)
[2017-02-24] MEDS: SODIUM CHLORIDE 0.9% 1,000 ML IV SCH (10:05)
[2017-02-24] MEDS: PANTOPRAZOLE 40 MG/10 ML VIAL IVP SCH (10:06)
[2017-02-24] MEDS: CARVEDILOL 12.5 MG TAB PO SCH (10:06)
[2017-02-24 10:10] LABS: Anisocytosis Marked; Basophils % (A) 1 %; CH 29.1; CHCM 27.6; Eosinophils # (A) 0.1 k/uL (0-0.7); Eosinophils % (A) 2 %; HDW 3.26; HGB 7.9 gm/dL (11.4-16.0); Hypochromasia Marked; Luc # (Auto) 0.06; Luc % (Auto) 2; Lymphocytes # (A) 0.6 k/uL (1.0-4.8); Lymphocytes % (A) 20 %; MCH 30.2 pg (25.0-35.0); MCHC 28.3 g/dL (31.0-37.0); MCV 106.9 fL (80.0-100.0); Macrocytosis Marked; Mean Platelet Volume 8.5; Monocytes # (A) 0.3 k/uL (0-1.0); Monocytes % (A) 11 %; Neutrophils # (A) 1.8 k/uL (1.3-7.7); Neutrophils % (A) 64 %; RBC 2.62 m/uL (3.80-5.40); RDW 24.1 % (11.5-15.5); WBC 2.9 k/uL (3.8-10.6); WBC (Perox) 2.95
--- NOTE | 2017-02-24 11:28 | DS ---
DATE OF ADMISSION: 02/23/2017 DATE OF DISCHARGE: Patient is a 66-year-old who came in with possibility of upper GI bleed with a couple bowel movements which were dark in color, although patient is on iron supplementation. Patient did have a hemoglobin drop from 8.9 to 7.9, which is a hemodilutory effect from IV fluid she is receiving. Patient's BUN is not high enough and patient did not have any bowel movement today, because of which I do not believe patient has any GI bleed at this point of time. Patient's platelet count was low, and because of this suspicious GI bleed I am holding aspirin for a couple of days. If her platelet count improves above 50 and if patient does not have any bowel movements for the next couple of days, she can be resumed on aspirin. Patient has had multiple GI bleeds in the past, because of which patient is not on anticoagulation for atrial fibrillation. Since her low normal blood pressures with systolics going as low as 90s, I discontinued her Coreg and instead I am starting her on metoprolol, which has much lesser effect on blood pressure. Patient will be discharged to subacute rehabilitation today. Patient was seen and examined on the day of discharge. Vitals are stable. GENERAL: The patient is alert and oriented x3, not in any acute distress. Well developed, well nourished. HEENT: Pupils are round and equally reacting to light. EOMI. No scleral icterus. No conjunctival pallor. Normocephalic, atraumatic. No pharyngeal erythema. No thyromegaly. CARDIOVASCULAR: S1 and S2 present. No murmurs, rubs, or gallops. PULMONARY: Chest is clear to auscultation, no wheezing or crackles. ABDOMEN: Soft, nontender, nondistended, normoactive bowel sounds. No palpable organomegaly. MUSCULOSKELETAL: No joint swelling or deformity. EXTREMITIES: No change compared to yesterday. NEUROLOGICAL: Gross neurological examination did not reveal any focal deficits. SKIN: No rashes. Alert and oriented x3. Morbidly obese. LABORATORY DATA: Significant ones as described above. ASSESSMENT AND PLAN: 1. Patient is admitted for possibility of upper gastrointestinal bleed from peptic ulcer disease. That was ruled out and patient will be discharged today. 2. Chronic kidney disease, stage IV. Will need to follow up as an outpatient. 3. Probably hypertensive nephrosclerosis. Will need to follow up with Nephrology as an outpatient. 4. Atrial fibrillation, at present rate controlled. Patient's anticoagulation was discontinued at this point of time because of above-mentioned reasons of platelet count going down to as low as below 50. There is a low suspicion that she has upper GI bleed, because of which I am holding aspirin, which can be resumed in a couple of days if she does not have any more increase in her bowel movements or soft bowel movements and patient's platelet count goes up. 5. Moderate pulmonary hypertension. 6. Hypertensive nephrosclerosis leading to stage IV chronic kidney disease. 7. Chronic anemia, probably iron deficiency anemia. Patient will be resumed on ferrous sulfate and can use p.r.n. constipation medications. 8. Asthma without any acute exacerbation. 9. Chronic venostasis with chronic venostasis dermatosis on bilateral lower limb limbs. Patient will be discharged today. Spent greater than 35 minutes in total discharge process. DISCHARGE DIET: Cardiac activity as per the facility. Patient will follow up with Dr. Jake Rodriguez in the facility.
== END 2017-02-24 11:40 | DRG 378 ==
LOC: EC 13:52 → 5MS5E 18:35
PROVIDERS: ADMIT Internal Medicine; ATTEND Internal Medicine
DX: K92.1 Melena (principal); N18.4 Chronic kidney disease, stage 4 (severe); I27.2 Other secondary pulmonary hypertension; D62 Acute posthemorrhagic anemia; Z99.81 Dependence on supplemental oxygen; Z68.45 Body mass index [BMI] 70 or greater, adult; I48.91 Unspecified atrial fibrillation; E66.01 Morbid (severe) obesity due to excess calories; D50.9 Iron deficiency anemia, unspecified; I12.9 Hypertensive chronic kidney disease with stage 1 through stage 4 chronic kidney disease, or unspecified chronic kidney disease; K59.00 Constipation, unspecified; L98.8 Other specified disorders of the skin and subcutaneous tissue; I87.8 Other specified disorders of veins; M10.9 Gout, unspecified; G47.33 Obstructive sleep apnea (adult) (pediatric); M19.90 Unspecified osteoarthritis, unspecified site; R19.7 Diarrhea, unspecified; R11.10 Vomiting, unspecified; R60.0 Localized edema; J45.909 Unspecified asthma, uncomplicated; Z79.82 Long term (current) use of aspirin; Z79.899 Other long term (current) drug therapy; Z80.0 Family history of malignant neoplasm of digestive organs; Z82.49 Family history of ischemic heart disease and other diseases of the circulatory system; Z87.891 Personal history of nicotine dependence; Z87.11 Personal history of peptic ulcer disease; Z87.19 Personal history of other diseases of the digestive system; Z86.69 Personal history of other diseases of the nervous system and sense organs; Z87.01 Personal history of pneumonia (recurrent); Z87.440 Personal history of urinary (tract) infections; Z86.19 Personal history of other infectious and parasitic diseases; Z86.79 Personal history of other diseases of the circulatory system
CPT/HCPCS: 36415; 80048; 80053; 81001; 82150; 82272; 82607; 83690; 85025; 94660; 96360; 96361; 99285

== ENCOUNTER 2017-04-12 17:50 | Inpatient (IN) | payer MEDICARE, OTHER ==
--- NOTE | 2017-04-12 18:14 | ED ---
General Adult HPI - General Stated complaint: low temperature,abn labs Time Seen by Provider: 04/12/17 17:50 Source: patient, EMS, RN notes reviewed Mode of arrival: EMS Limitations: physical limitation - History of Present Illness Initial comments: This is a 66-year-old female history or renal insufficiency and morbid obesity who was sent in from [facility] for evaluation for worsening renal disease. Her BUN and creatinine have gone up. She does have a history of GI bleed and history of A. fib. LVH. She is not on anticoagulants. Her GFR is gone from 25 document 9 per the attending physician. Patient is here for further evaluation and nephrology consultation. Also note her temperature was reported 92.9 orally. Patient herself denies any fevers chills or sweats no shortness of breath cough or abdominal pain. - Related Data Home Medications Medication Instructions Recorded Confirmed Albuterol Inhaler [Ventolin Hfa 2 puff INHALATION RT-Q4H PRN 12/19/16 02/23/17 Inhaler] Folic Acid 1 mg PO DAILY@1700 12/19/16 02/23/17 Ipratropium-Albuterol Nebulize 3 ml INHALATION RT-QID 12/19/16 02/23/17 [Duoneb 0.5 mg-3 mg/3 ml Soln] Acetaminophen Tab [Tylenol] 650 mg PO Q4H PRN 12/25/16 02/23/17 Magnesium Hydroxide [Milk of 2,400 mg PO DAILY PRN 12/25/16 02/23/17 Magnesia] Cholecalciferol [Vitamin D3] 2,000 unit PO DAILY@1700 12/30/16 02/23/17 Bisacodyl [Dulcolax] 10 mg RECTAL DAILY PRN 02/23/17 02/23/17 Carbamide Peroxide [Debrox Otic] 8 drops RIGHT EAR HS 02/23/17 02/23/17 Ensure Clear 1 can PO TID 02/23/17 02/23/17 Ferrous Sulfate [Iron (65 MG 325 mg PO DAILY@1700 02/23/17 02/23/17 Elemental)] Lactulose 10 gm PO DAILY PRN 02/23/17 02/23/17 Menthol/Zinc Oxide [Calmoseptine 1 applic TOPICAL BID 02/23/17 02/23/17 Ointment] Previous Rx's Medication Instructions Recorded Isosorbide Mononitrate ER [Imdur] 30 mg PO DAILY tab.er.24h 12/22/16 Atorvastatin [Lipitor] 40 mg PO HS tab 01/05/17 Allopurinol [Zyloprim] 200 mg PO DAILY tab 01/22/17 Pantoprazole [Protonix] 40 mg PO DAILY tablet. 01/22/17 Aspirin 81 mg PO DAILY@1700 #0 02/24/17 Metoprolol Tartrate [Lopressor] 100 mg PO BID #60 tab 02/24/17 Allergies Allergy/AdvReac Type Severity Reaction Status Date / Time No Known Allergies Allergy Verified 04/12/17 18:09 Review of Systems ROS Statement: Those systems with pertinent positive or pertinent negative responses have been documented in the HPI. ROS Other: All systems not noted in ROS Statement are negative. Past Medical History Past Medical History: Atrial Fibrillation, Asthma, Heart Failure, Hypertension, Osteoarthritis (OA), Pneumonia, Sleep Apnea/CPAP/BIPAP Additional Past Medical History / Comment(s): BRUNILDA with CPAP, gout bilateral legs /feet, arthritis multiple joints, sinus problems, past left lower leg cellulitis and wound, UTIs. Morbid obesity History of Any Multi-Drug Resistant Organisms: None Reported Past Surgical History: Section, Ear Surgery Additional Past Surgical History / Comment(s): Debridement bilateral pedal toenails, colonoscopy-normal, L ear benign tumor removed, x 2. pt currently resides at [facility] Past Anesthesia/Blood Transfusion Reactions: No Reported Reaction Past Psychological History: No Psychological Hx Reported Smoking Status: Former smoker Past Alcohol Use History: Rare Past Drug Use History: None Reported - Past Family History Mother Family Medical History: Cancer Additional Family Medical History / Comment(s): Mother of colon cancer at the age of 54 yrs. Father Family Medical History: Myocardial Infarction (TN) Additional Family Medical History / Comment(s): Father of a massive [place] at the age of 60 yrs. General Exam - General Exam Comments Initial Comments: This is a well-developed well-nourished morbidly obese female she is awake alert oriented 3 Limitations: physical limitation General appearance: alert, in no apparent distress Head exam: Present: atraumatic, normocephalic, normal inspection Eye exam: Present: normal appearance, PERRL, EOMI. Absent: scleral icterus, conjunctival injection, periorbital swelling ENT exam: Present: normal exam, mucous membranes moist Neck exam: Present: normal inspection. Absent: tenderness, meningismus, lymphadenopathy Respiratory exam: Present: normal lung sounds bilaterally. Absent: respiratory distress, wheezes, rales, rhonchi, stridor Cardiovascular Exam: Present: regular rate, normal rhythm, normal heart sounds. Absent: systolic murmur, diastolic murmur, rubs, gallop, clicks GI/Abdominal exam: Present: soft, normal bowel sounds, other (Obese abdomen). Absent: distended, tenderness, guarding, rebound, rigid Extremities exam: Present: full ROM, normal capillary refill, other (Obese). Absent: tenderness, pedal edema, joint swelling, calf tenderness Back exam: Present: normal inspection Neurological exam: Present: alert, oriented X3, CN II-XII intact Psychiatric exam: Present: normal affect, normal mood Skin exam: Present: warm, dry, intact, normal color. Absent: rash Course Vital Signs 04/12/17 17:58 Temperature 94.6 F L Pulse Rate 64 Respiratory 18 Rate Blood Pressure 110/58 EKG Findings - EKG Results: EKG: interpreted by NARCISA (Atrial fibrillation rate of 64 QRS 110 daily since QTC of 470/[address]-T wave configuration) Medical Decision Making - Medical Decision Making I did reevaluate the lab work. Patient will be admitted I did discuss case with the admitting physician. - Lab Data Result diagrams: 04/12/17 18:20 04/12/17 18:20 Lab Results 04/12/17 04/12/17 Range/Units 18:20 18:20 WBC 3.1 L (3.8-10.6) k/uL RBC 2.93 L (3.80-5.40) m/uL Hgb 9.3 L (11.4-16.0) gm/dL Hct 30.8 L (34.0-46.0) % MCV 105.0 H (80.0-100.0) fL MCH 31.7 (25.0-35.0) pg MCHC 30.2 L (31.0-37.0) g/dL RDW 22.7 H (11.5-15.5) % Plt Count 58 L (150-450) k/uL Neutrophils % 68 % Lymphocytes % 19 % Monocytes % 7 % Eosinophils % 3 % Basophils % 0 % Neutrophils # 2.1 (1.3-7.7) k/uL Lymphocytes # 0.6 L (1.0-4.8) k/uL Monocytes # 0.2 (0-1.0) k/uL Eosinophils # 0.1 (0-0.7) k/uL Basophils # 0.0 (0-0.2) k/uL Polychromasia Present Hypochromasia Marked Poikilocytosis Slight Anisocytosis Moderate Macrocytosis Marked Sodium 142 (137-145) mmol/L Potassium 3.9 (3.5-5.1) mmol/L Chloride 101 (98-107) mmol/L Carbon Dioxide 32 H (22-30) mmol/L Anion Gap 9 mmol/L BUN 44 H (7-17) mg/dL Creatinine 5.10 H* (0.52-1.04) mg/dL Est GFR (MDRD) Af Amer 10 (>60 ml/min/1.73 sqM) Est GFR (MDRD) Non-Af 8 (>60 ml/min/1.73 sqM) Glucose 84 (74-99) mg/dL Calcium 9.1 (8.4-10.2) mg/dL Magnesium 2.2 (1.6-2.3) mg/dL Total Bilirubin 1.1 (0.2-1.3) mg/dL AST 17 (14-36) U/L ALT 23 (9-52) U/L Alkaline Phosphatase 111 (38-126) U/L Total Protein 6.1 L (6.3-8.2) g/dL Albumin 2.9 L (3.5-5.0) g/dL Disposition Clinical Impression: Acute on chronic renal failure, Chronic anemia, Morbid obesity Disposition: ADMITTED IP TO THIS [facility] Condition: Stable Referrals: Jake Rodriguez MD [Primary Care Provider] - 1-2 days
[2017-04-12 18:43] LABS: Anisocytosis Moderate; Basophils % (A) 0 %; CHCM 29.9; Eosinophils # (A) 0.1 k/uL (0-0.7); Eosinophils % (A) 3 %; HCT 30.8 % (34.0-46.0); HDW 3.56; HGB 9.3 gm/dL (11.4-16.0); Hypochromasia Marked; Luc # (Auto) 0.09; Luc % (Auto) 3; Lymphocytes # (A) 0.6 k/uL (1.0-4.8); Lymphocytes % (A) 19 %; MCH 31.7 pg (25.0-35.0); MCHC 30.2 g/dL (31.0-37.0); Macrocytosis Marked; Mean Platelet Volume 10.4; Monocytes # (A) 0.2 k/uL (0-1.0); Monocytes % (A) 7 %; Neutrophils # (A) 2.1 k/uL (1.3-7.7); Neutrophils % (A) 68 %; Poikilocytosis Slight; RBC 2.93 m/uL (3.80-5.40); RDW 22.7 % (11.5-15.5); WBC 3.1 k/uL (3.8-10.6); WBC (Perox) 3.17
[2017-04-12 18:47] LABS: Calcium 9.1 mg/dL (8.4-10.2); Magnesium 2.2 mg/dL (1.6-2.3); Potassium 3.9 mmol/L (3.5-5.1); Total Bilirubin 1.1 mg/dL (0.2-1.3); Total Protein 6.1 g/dL (6.3-8.2)
[2017-04-12 18:54] LABS: Polychromasia Present
[2017-04-12] MEDS ORDERED: NALOXONE 0.4 MG/ML 1 ML VIAL IV PRN (19:00)
[2017-04-12] MEDS ORDERED: BISACODYL 10 MG SUPP RECTAL PRN (19:09)
[2017-04-12] MEDS ORDERED: ACETAMINOPHEN TAB 325 MG TAB PO PRN (19:09)
[2017-04-12] MEDS ORDERED: MAGNESIUM HYDROXIDE 2,400 MG/10 ML CUP PO PRN (19:09)
[2017-04-12] MEDS ORDERED: LACTULOSE 20 GM/30 ML CUP PO PRN (19:09)
[2017-04-12] MEDS ORDERED: ALBUTEROL NEBULIZED 2.5 MG/3 ML INHALATION PRN (19:09)
[2017-04-12 19:11] LABS: INR 1.2 (<1.1); Partial Thromboplastin Time 26.7 sec (22.0-30.0); Prothrombin Time 11.9 sec (9.0-12.0)
[2017-04-12] MEDS: SODIUM CHLORIDE 0.9% 1,000 ML IV SCH (19:40)
[2017-04-12] MEDS: IPRATROPIUM-ALBUTEROL 3 ML NEB INHALATION SCH (21:26)
[2017-04-12] MEDS: ATORVASTATIN 40 MG TAB PO SCH (21:50)
[2017-04-12] MEDS: CARBAMIDE PEROXIDE 6.5% DROPS 15 ML BTL RIGHT EAR SCH (21:51)
[2017-04-12] MEDS: METOPROLOL TARTRATE 50 MG TAB PO SCH (21:51)
[2017-04-12] MEDS: MENTHOL-ZINC OXIDE OINT 113 GM TUBE TOPICAL SCH (21:51)
[2017-04-12] MEDS ORDERED: NON-FORMULARY DRUG (Ensure Clear 1 CAN) PO SCH (22:00)
[2017-04-12] MEDS: HEPARIN SODIUM,PORCINE 5,000 UNIT/ML 1 ML VIAL SQ SCH (23:30)
[2017-04-12] MEDS: AMMONIUM LACTATE 12% CREAM 140 GM TUBE TOPICAL SCH (23:30)
[2017-04-13] MEDS ORDERED: FUROSEMIDE 10 MG/ML 10 ML VIAL IV STA (06:50)
[2017-04-13] MEDS: IPRATROPIUM-ALBUTEROL 3 ML NEB INHALATION SCH ×4 (07:19→19:37)
--- NOTE | 2017-04-13 08:12 | XR ---
EXAMINATION TYPE: XR chest 1V DATE OF EXAM: 04/13/2017 COMPARISON: 01/13/2017 HISTORY: CHF TECHNIQUE: Single frontal view of the chest is obtained. FINDINGS: Heart is enlarged and there is bilateral infiltrate. Atherosclerotic change of the aorta. No pneumothorax. Interstitium prominent. IMPRESSION: 1. Bilateral infiltrate and small effusion correlate for mild central venous congestion.
[2017-04-13] MEDS ORDERED: PANTOPRAZOLE 40 MG TABLET PO SCH (09:00)
[2017-04-13] MEDS ORDERED: MENTHOL-ZINC OXIDE OINT 113 GM TUBE TOPICAL SCH (09:00)
[2017-04-13] MEDS ORDERED: ALLOPURINOL 100 MG TAB PO SCH (09:00)
[2017-04-13] MEDS: HEPARIN SODIUM,PORCINE 5,000 UNIT/ML 1 ML VIAL SQ SCH ×2 (09:29→16:00)
[2017-04-13] MEDS: METOPROLOL TARTRATE 50 MG TAB PO SCH (09:30)
[2017-04-13] MEDS: POTASSIUM CHLORIDE ER 10 MEQ TAB.ER.PRT PO SCH (09:30)
[2017-04-13] MEDS: PANTOPRAZOLE 40 MG TABLET PO SCH (09:30)
[2017-04-13] MEDS: ISOSORBIDE MONONITRATE ER 30 MG TAB.ER.24H PO SCH (09:31)
[2017-04-13] MEDS: FUROSEMIDE 20 MG TAB PO SCH (09:31)
[2017-04-13] MEDS: AMMONIUM LACTATE 12% CREAM 140 GM TUBE TOPICAL SCH ×2 (09:31→18:26)
[2017-04-13] MEDS: MENTHOL-ZINC OXIDE OINT 113 GM TUBE TOPICAL SCH ×2 (09:31→18:26)
[2017-04-13 11:00] LABS: Anisocytosis Moderate; Basophils % (A) 0 %; CH 31.3; CHCM 29.8; Eosinophils # (A) 0.1 k/uL (0-0.7); Eosinophils % (A) 2 %; HCT 28.1 % (34.0-46.0); HDW 3.38; HGB 8.4 gm/dL (11.4-16.0); Hypochromasia Marked; Luc # (Auto) 0.09; Luc % (Auto) 3; Lymphocytes # (A) 0.5 k/uL (1.0-4.8); Lymphocytes % (A) 16 %; MCH 31.8 pg (25.0-35.0); MCHC 29.9 g/dL (31.0-37.0); MCV 106.3 fL (80.0-100.0); Macrocytosis Marked; Mean Platelet Volume 9.9; Monocytes # (A) 0.3 k/uL (0-1.0); Monocytes % (A) 8 %; Neutrophils # (A) 2.5 k/uL (1.3-7.7); Neutrophils % (A) 72 %; RBC 2.65 m/uL (3.80-5.40); RDW 22.1 % (11.5-15.5); WBC 3.5 k/uL (3.8-10.6); WBC (Perox) 3.54
--- NOTE | 2017-04-13 13:47 | CONS ---
DATE OF CONSULTATION: REASON FOR CONSULT: Renal failure. HISTORY OF PRESENT ILLNESS: Patient is a 66-year-old female who was admitted to the hospital from the alf with worsening renal function. As outpatient, patient's serum creatinine had gone up to 4.8 mg/dL from around 2. Her blood pressure had been running on the lower side. Antihypertensive medications were held and repeat labs were done and; however, serum creatinine was higher at 5.1 mg/dL, and therefore patient was admitted to the hospital. She does have chronic kidney disease, NKF stage IIIB, with baseline creatinine previously around 1.4 and then more recently around 2 mg/dL. She was hypothermic when she came in. She does not have any sacral decub. No cough. No chest pains. No shortness of breath. Patient does have cardiomyopathy, systolic CHF with ejection fraction of about 45% with moderate pulmonary hypertension. She has had significant lower extremity edema which seems to be worse recently. PAST MEDICAL HISTORY: A. fib, asthma, CHF, hypertension, osteoarthritis, chronic kidney disease stage IIIB, pneumonia, history of sleep apnea, history of cellulitis and wound in lower extremities. PAST SURGICAL HISTORY: , colonoscopy. SOCIAL HISTORY: Patient is a former smoker, no history of drug abuse or alcohol abuse. She currently resides at [facility]. Medications prior to admission included folic acid, iron, Zyloprim, Tylenol, milk of magnesia, vitamin D3. ALLERGIES: None. REVIEW OF SYSTEMS: As per HPI. Other systems negative. On examination, patient is comfortable, awake, she is not in any acute distress. Blood pressure is 95/46, heart rate 68 per minute. She is afebrile. Examination of the heart, S1 and S2. Examination of the lungs, bilateral breath sounds are heard. They are distant secondary to body habitus. Abdomen is soft, obese, nontender. Examination of lower extremities shows significant edema bilaterally about 3+ with chronic skin changes. APPRAISER ART exam is grossly intact. Patient is moving all 4 extremities Labs show sodium 143, potassium 4.0, CO2 is 31, BUN 42, serum creatinine 5.5 mg/dL, albumin 2.9. Magnesium 2.2. Chest x-ray from this morning shows bilateral infiltrates, small effusion. Possible mild central venous congestion. ASSESSMENT: 1. Acute kidney injury, possibly acute tubular necrosis secondary to hypotension and hypoperfusion. Currently oliguric. Patient may need to have a Arteaga catheter placed to accurately check her urine output. I will try one dose of Lasix to improve her urine output. If her renal function does not improve and urine output remains poor, patient will need pressor agents as her blood pressure is low. We can add low dose dopamine. Currently, she is not on any nephrotoxic medications. I will order an ultrasound of the kidneys as well. 2. Chronic lower extremity edema with evidence of mild fluid overload noted on the chest x-ray, try Lasix x1. 3. Morbid obesity. 4. Chronic kidney disease with baseline creatinine previously at around 2.3 mg/dL as of January of 2017. It had been around 1.3 and 1.4 in September of 2016 and November of 2016. PLAN: Lasix x1, check ultrasound of the kidneys, add dopamine, check blood cultures to rule out underlying infection. Patient was hypothermic at the time of admission. Monitor hemoglobin for possible need for packed RBC transfusion. Also check a urinalysis. Patient may need Arteaga catheter placement for accurate urine output measurement. Thank you for this consultation. Will continue to follow the patient with you during her hospitalization.
--- NOTE | 2017-04-13 14:38 | US ---
EXAMINATION TYPE: US kidneys/renal and bladder DATE OF EXAM: 04/13/2017 COMPARISON: See PACS CLINICAL HISTORY: renal failure. EXAM MEASUREMENTS: Right Kidney: 9.8 x 4.5 x 5.0 cm Left Kidney: 9.3 x 5.1 x 4.8 cm Patient 5'5", 474, difficulty positioning for left kidney, technically difficult study Right Kidney: No hydronephrosis or masses seen Left Kidney: No hydronephrosis or masses seen, very limited visualization Bladder: not well visualized Mild free fluid seen right and left upper quadrants. IMPRESSION: 1. Ascites. 2. Renal ultrasound appears unremarkable
[2017-04-13] MEDS: ASPIRIN 81 MG CHEW PO SCH (18:22)
[2017-04-13] MEDS: FOLIC ACID 1 MG TAB PO SCH (18:22)
[2017-04-13] MEDS: FERROUS SULFATE 325 MG TAB PO SCH (18:22)
[2017-04-13] MEDS: CHOLECALCIFEROL 1,000 UNIT TAB PO SCH (18:22)
[2017-04-13] MEDS ORDERED: DOBUTamine DRIP 500 MG in DEXTROSE/WATER 1 250ML.BAG IV SCH (18:31)
--- NOTE | 2017-04-13 20:45 | HP ---
DATE OF ADMISSION: 04/12/2017 PRESENTING COMPLAINT: Worsening renal failure. HISTORY OF PRESENTING COMPLAINT: This is a 66-year-old patient who is a [facility] whose chronic stable medical conditions include persistent atrial fibrillation ( ) coagulation, fatty liver, chronic obstructive pulmonary disease in an ex-smoker, osteoarthritis, obstructive sleep apnea, chronic gout, morbid obesity, persistent atrial fibrillation. Patient was sent in for worsening renal functions. Patient's BUN and creatinine were 30/2.3 back in January of this year and now presents with BUN/creatinine of 44 and 5.1. Patient has been tolerating a diet. Does feel weak and tired. The patient is pretty much bed bound, being morbidly obese. REVIEW OF SYSTEMS: CONSTITUTIONAL: Tired. HEENT: None. RESPIRATORY: Baseline short of breath. CARDIOVASCULAR: None. GASTROINTESTINAL: None. GENITOURINARY: None. MUSCULOSKELETAL: Some arthritic pain in the joints. DERMATOLOGICAL: None. HEMATOLOGICAL: None. LYMPHATIC: None. PSYCHIATRY: None. NEUROLOGICAL: None. PAST MEDICAL HISTORY: Persistent atrial fibrillation, hyperlipidemia, hypertension, osteoarthritis, obstructive sleep apnea with CPAP, gout, bilateral arthritis, morbid obesity, oxygen 2 liters nasal cannula. PAST SURGICAL HISTORY: , ear surgery, debridement of bilateral ( ) toe nails, left ear benign tumor removed, . SOCIAL HISTORY: Patient resident of [facility]. Not ambulatory, uses a lift with wheelchair. Patient started smoking at the age of 21 and quit in 2006. Pack would last her a week. FAMILY HISTORY: Mother colon cancer at the age of 54. HOME MEDICATIONS: 1. Potassium 10 mEq a day. 2. Protonix 20 mg a day. 3. Zofran 4 mg q.8 p.r.n. 4. Calmoseptine one application topically b.i.d. 5. Milk of magnesia 25 mg daily p.r.n. 6. Lactulose 10 grams p.o. daily p.r.n. 7. Imdur ER 50 mg p.o. daily. 8. DuoNeb 3 mL q.i.d. 9. Lasix 20 mg p.o. daily. 10. Folic acid 1 mg p.o. daily. 11. Iron 325 daily. 12. Ensure one can p.o. t.i.d. 13. Vitamin D3 2000 units p.o. daily. 14. Coreg 3.125 p.o. b.i.d. 15. Dulcolax 10 mg rectal daily p.r.n. 16. Lipitor 40 mg q.h.s. 17. Aspirin 81 mg p.o. daily. 18. Lac-Hydrin 12% one tablet topical t.i.d. 19. Allopurinol 200 mg p.o. daily. 20. Ventolin HFA 2 puffs q.4 p.r.n. ALLERGIES: None. On examination, temperature 97.6, pulse 61, respiration 18, blood pressure 106/55, pulse ox 100% on 2- liters. GENERAL APPEARANCE: Morbidly obese. BMI 78.9. Sitting up, tired -appearing. EYES: Pupils equal. Conjunctivae normal. HEENT: Oral cavity normal. NECK: Short, thick. JVD unable to assess. RESPIRATORY: Effort normal. LUNGS: Diminished breath sounds. CARDIOVASCULAR: Heart sounds muffled. Minimal edema. ABDOMEN: Large, distended, soft. Liver and spleen not palpable. LYMPHATIC: No lymph node palpable in the neck or axillae. PSYCHIATRY: Alert and oriented x3. Mood and affect normal. NEUROLOGICAL: Pupils equal. Cranial nerves grossly intact. INVESTIGATIONS: White count 3.1, hemoglobin 9.3, platelets 58, potassium 3.9. BUN 44, creatinine 15.10. ASSESSMENT: 1. Acute kidney injury, possibly acute tubular necrosis versus prerenal in a patient with known chronic kidney disease. 2. Persistent atrial fibrillation, not a candidate for anticoagulation. 3. Fatty liver. 4. Chronic obstructive pulmonary disease in an ex-smoker. 5. Osteoarthritis of multiple joints, bilateral. 6. Obstructive sleep apnea, uses CPAP. 7. Chronic gout. 8. Morbid obesity; body mass index more than 70. 9. Chronic hypoxic respiratory failure on 2 liters of oxygen from underlying chronic obstructive pulmonary disease. 10. Chronic medical debility uses lift to wheelchair. PLAN: Patient's home medications are resumed. Nephrology was consulted. Care was discussed with the patient. Strict I's & O's will be done. Renal function will be followed closely. Prognosis guarded.
[2017-04-13] MEDS: DEXTROSE/WATER 1 500ML.BAG with DOPamine DRIP 800 MG IV SCH (21:12)
[2017-04-13 22:09] LABS: Appearance,Urine Cloudy (Clear); Bacteria,Urine Occasional /hpf; Bilirubin,Urine Negative (Negative); Glucose,Urine (UA) Negative (Negative); Ketones,Urine Negative (Negative); Leukocyte Esterase,Urine Trace (Negative); Mucus,Urine Rare /hpf; Nitrite,Urine Negative (Negative); Particle Count 9488; Protein,Urine 1+ (Negative); RBC,Urine 2 /hpf (0-5); Specific Gravity,Urine 1.008 (1.001-1.035); Squamous Epithelial Cell,Urine 1 /hpf (0-4); UA Billing (MACRO vs. MICRO) MICRO; Urobilinogen,Urine <2.0 mg/dL (<2.0); WBC,Urine 6 /hpf (0-5)
[2017-04-14] MEDS: ONDANSETRON 4 MG/2 ML VIAL IVP PRN ×2 (00:32→16:10)
[2017-04-14] MEDS: HEPARIN SODIUM,PORCINE 5,000 UNIT/ML 1 ML VIAL SQ SCH ×3 (01:22→15:59)
[2017-04-14] MEDS: METOPROLOL TARTRATE 50 MG TAB PO SCH ×3 (01:22→21:33)
[2017-04-14] MEDS: ATORVASTATIN 40 MG TAB PO SCH ×2 (01:22→21:33)
[2017-04-14] MEDS: CARBAMIDE PEROXIDE 6.5% DROPS 15 ML BTL RIGHT EAR SCH ×2 (01:22→21:33)
[2017-04-14] MEDS: SODIUM CHLORIDE 0.9% 1,000 ML IV SCH ×2 (05:37→22:20)
[2017-04-14] MEDS: AMMONIUM LACTATE 12% CREAM 140 GM TUBE TOPICAL SCH ×4 (05:55→21:34)
[2017-04-14] MEDS: PANTOPRAZOLE 40 MG TABLET PO SCH (06:41)
[2017-04-14 06:42] LABS: Anisocytosis Moderate; Basophils % (A) 0 %; CHCM 28.8; Eosinophils # (A) 0.1 k/uL (0-0.7); Eosinophils % (A) 2 %; HCT 32.4 % (34.0-46.0); HDW 3.23; HGB 9.4 gm/dL (11.4-16.0); Hypochromasia Marked; Luc # (Auto) 0.08; Luc % (Auto) 2; Lymphocytes # (A) 0.5 k/uL (1.0-4.8); Lymphocytes % (A) 11 %; MCH 31.5 pg (25.0-35.0); MCHC 28.9 g/dL (31.0-37.0); MCV 108.9 fL (80.0-100.0); Macrocytosis Marked; Mean Platelet Volume 10.7; Monocytes # (A) 0.4 k/uL (0-1.0); Monocytes % (A) 8 %; Neutrophils # (A) 3.3 k/uL (1.3-7.7); Neutrophils % (A) 77 %; RBC 2.97 m/uL (3.80-5.40); WBC 4.3 k/uL (3.8-10.6); WBC (Perox) 4.45
[2017-04-14] MEDS: IPRATROPIUM-ALBUTEROL 3 ML NEB INHALATION SCH ×4 (07:05→19:51)
[2017-04-14 07:21] LABS: Potassium 4.5 mmol/L (3.5-5.1)
[2017-04-14] MEDS: POTASSIUM CHLORIDE ER 10 MEQ TAB.ER.PRT PO SCH (08:37)
[2017-04-14] MEDS: ISOSORBIDE MONONITRATE ER 30 MG TAB.ER.24H PO SCH (08:37)
[2017-04-14] MEDS: ALLOPURINOL 100 MG TAB PO SCH (08:37)
[2017-04-14] MEDS: FUROSEMIDE 20 MG TAB PO SCH (08:37)
[2017-04-14] MEDS: MENTHOL-ZINC OXIDE OINT 113 GM TUBE TOPICAL SCH ×2 (08:42→21:34)
[2017-04-14] MEDS ORDERED: FUROSEMIDE 10 MG/ML 10 ML VIAL IV STA (09:35)
--- NOTE | 2017-04-14 10:11 | PN ---
The patient is seen for followup for acute kidney injury. Patient's blood pressure had been low as outpatient. Her creatinine continued to rise. She initially had no significant urine output. She was started on dopamine and transferred to [facility]. The Arteaga catheter was also placed and I do see that she has had good urine output at least in the last 8 hours of about 300 mL. Serum creatinine is about the same as yesterday at least it is not worse. Patient denies any significant complaints. On examination, blood pressure is 111/71, heart rate 75 per minute. She is afebrile. EXAMINATION OF THE HEART: S1 and S2. EXAMINATION OF THE LUNGS: Bilateral breath sounds are heard. Heart sounds and lung sounds are distant secondary to body habitus. ABDOMEN: Soft, obese, morbidly obese. Examination of lower extremities shows chronic skin changes, chronic edema bilaterally. JUDGE'S CLERK exam is grossly intact. Labs show sodium 143, potassium 4.5, BUN 49, serum creatinine 5.5. Hemoglobin 9.4 g/dL. ASSESSMENT: 1. Acute kidney injury, most likely acute tubular necrosis, currently nonoliguric with improved urine output. Patient was hypotensive initially. Currently she is maintained on dopamine, which I will continue. Her ejection fraction was 50% to 55% on echocardiogram done in December 2016. She had mild pulmonary hypertension at that time. 2. Chronic kidney disease with baseline creatinine of about 2.3 mg/dL as of January 2017; previously it had been at about 1.3 and 1.4 in September 2016 and November 2016. 3. Chronic lower extremity edema which seems to be worse as compared to a few months ago. Patient did not respond well to Lasix yesterday. I will repeat another dose of Lasix today while she is on the dopamine. 4. Anemia with no active bleeding noted. Hemoglobin is up to 9.4 g/dL today. PLAN: Repeat Lasix. Continue dopamine and repeat labs in the a.m. Continue to avoid nephrotoxic agents.
[2017-04-14] MEDS: ASPIRIN 81 MG CHEW PO SCH (15:59)
[2017-04-14] MEDS: FOLIC ACID 1 MG TAB PO SCH (15:59)
[2017-04-14] MEDS: CHOLECALCIFEROL 1,000 UNIT TAB PO SCH (15:59)
[2017-04-14] MEDS: FERROUS SULFATE 325 MG TAB PO SCH (15:59)
--- NOTE | 2017-04-14 20:28 | P.PN ---
Progress Note - Text DATE OF SERVICE: 04/14/2017 PRESENTING COMPLAINT: Worsening renal failure INTERVAL HISTORY: This is a 66-year-old female who has acute kidney injury, possibly acute tubular necrosis. Today the patient is lying in bed appears comfortable. Tolerating her diet able to move around in her bed, patient is obese and requires much assistance to move around. No family at the bedside plan of care was discussed with patient REVIEW OF SYSTEMS: Done for constitutional ,cardiovascular, GI, pulmonary with relevant findings as above. CURRENT MEDICATIONS DuoNeb, Zyloprim, aspirin, Lipitor, Protonix, Lopressor, potassium, dopamine drip, PHYSICAL EXAM: VITAL SIGNS: 96.2 temperature, pulse 75, respiratory rate 18, blood pressure 111/71, oxygen saturation 99% on 2 L GENERAL APPEARANCE: Lying in bed, appears comfortable. EYES: Pupils equal. Conjunctiva normal. NECK: JVD not raised. Mass not palpable. RESPIRATORY: Respiratory effort normal. Lungs sounds distant to auscultation. CARDIOVASCULAR: First and second sounds normal. No edema. ABDOMEN: Soft. Pendulous abdomen, Liver and spleen not palpable. No tenderness. No mass palpable. PSYCHIATRY: Alert and oriented x3. Mood and affect normal. INVESTIGATIONS: Hemoglobin 9.4, platelet count 65, BUN 49 creatinine 5.50, TSH 5.760. ASSESSMENT: Acute kidney injury, possibly acute tubular necrosis versus prerenal in patient with known chronic kidney disease. Persistent atrial fibrillation, not a candidate for anticoagulation. Fatty liver. Chronic obstructive pulmonic disease and ex-smoker. Osteoarthritis of multiple joints, bilateral. Obstructive sleep apnea, uses a CPAP. Chronic gout. Morbid obesity, body mass index of more than 70. Chronic hypoxic respiratory failure on 2 L of oxygen from underlying chronic obstructive pulmonate disease. Chronic medical debility uses lift and wheelchair. PLAN: Nephrology continues to follow patient, dopamine drip continues to run with good results. Patient's TSH low, will evaluate using Synthroid. Patient's prognosis is guarded plan of care discussed with the patient and is agreeable. We'll continue to follow closely. LOCKSTITCH COAT JOINER statement: Patient was seen and examined by nurse practitioner Beatrice Fajardo in all elements of the case discussed with attending is Dr. Stephens
[2017-04-14] MEDS: DEXTROSE/WATER 1 500ML.BAG with DOPamine DRIP 800 MG IV SCH (22:20)
[2017-04-15 06:38] LABS: Anisocytosis Moderate; Basophils % (A) 0 %; CH 31.1; CHCM 29.7; Eosinophils # (A) 0.1 k/uL (0-0.7); Eosinophils % (A) 3 %; HCT 32.6 % (34.0-46.0); HDW 3.33; HGB 9.6 gm/dL (11.4-16.0); Hypochromasia Marked; Luc % (Auto) 3; Lymphocytes # (A) 0.5 k/uL (1.0-4.8); Lymphocytes % (A) 11 %; MCH 31.2 pg (25.0-35.0); MCHC 29.5 g/dL (31.0-37.0); MCV 105.9 fL (80.0-100.0); Macrocytosis Marked; Mean Platelet Volume 9.8; Monocytes # (A) 0.3 k/uL (0-1.0); Monocytes % (A) 7 %; Neutrophils # (A) 3.1 k/uL (1.3-7.7); Neutrophils % (A) 76 %; RBC 3.08 m/uL (3.80-5.40); RDW 21.9 % (11.5-15.5); WBC 4.1 k/uL (3.8-10.6); WBC (Perox) 4.47
[2017-04-15] MEDS: PANTOPRAZOLE 40 MG TABLET PO SCH (06:42)
[2017-04-15 06:46] LABS: Calcium 9.2 mg/dL (8.4-10.2); Potassium 4.4 mmol/L (3.5-5.1)
[2017-04-15] MEDS: IPRATROPIUM-ALBUTEROL 3 ML NEB INHALATION SCH ×4 (08:07→20:32)
[2017-04-15 08:36] LABS: Manual Review Performed; Target Cells Present
[2017-04-15] MEDS: MENTHOL-ZINC OXIDE OINT 113 GM TUBE TOPICAL SCH ×2 (08:48→21:27)
[2017-04-15] MEDS: AMMONIUM LACTATE 12% CREAM 140 GM TUBE TOPICAL SCH ×3 (08:48→21:26)
[2017-04-15] MEDS: ISOSORBIDE MONONITRATE ER 30 MG TAB.ER.24H PO SCH (08:51)
[2017-04-15] MEDS: POTASSIUM CHLORIDE ER 10 MEQ TAB.ER.PRT PO SCH (08:51)
[2017-04-15] MEDS: METOPROLOL TARTRATE 50 MG TAB PO SCH ×2 (08:51→21:20)
[2017-04-15] MEDS: ALLOPURINOL 100 MG TAB PO SCH (08:51)
[2017-04-15] MEDS: ONDANSETRON 4 MG/2 ML VIAL IVP PRN ×2 (08:56→21:19)
--- NOTE | 2017-04-15 12:33 | PN ---
DATE OF SERVICE: 04/14/2017 PRESENTING COMPLAINT: Fever. INTERVAL HISTORY: This is a patient with multiple medical problems with acute kidney injury, ATN, is on dopamine drip. The patient did throw up last night and also threw up this morning. Not much of an appetite she states. Urine output is limited. On examination, blood pressure 101/71. LUNGS: Distant breath sounds. CARDIOVASCULAR: Heart sounds normal. Lower extremity edema is present. PSYCH: Awake, answering questions. ASSESSMENT: 1. Acute kidney injury, possible acute tubular necrosis, nonoliguric. 2. Persistent atrial fibrillation, not a candidate for anticoagulation. 3. Thyrombocytopenia, likely idiopathic thrombocytopenic purpura. PLAN: Prognosis is not good. Continue on dopamine drip. Follow with nephrology. Patient to get medication for nausea. Follow. Note the patient's creatinine has not budged at all.
[2017-04-15] MEDS ORDERED: TERBUTALINE 1 MG/ML VIAL SQ ONE (14:40)
--- NOTE | 2017-04-15 14:46 | P.PN ---
Progress Note - Text DATE OF SERVICE: 04/15/2017 PRESENTING COMPLAINT: Worsening renal failure INTERVAL HISTORY: This is a 66-year-old female who has acute kidney injury, possibly acute tubular necrosis. Today the patient is lying in bed appears comfortable. Does not feel like eating, nauseated when food present, able to move around in her bed,with assistance patient is obese. Patient's tolerating her diet, producing urine, lower extremities wrapped with Everette wraps to aid with venous return. REVIEW OF SYSTEMS: Done for constitutional ,cardiovascular, GI, pulmonary with relevant findings as above. CURRENT MEDICATIONS DuoNeb, Zyloprim, aspirin, Lipitor, Protonix, Lopressor, potassium, dopamine drip, PHYSICAL EXAM: VITAL SIGNS: Temperature 96.0, pulse 70 respiratory rate 18, blood pressure 115/58, oxygen saturation 100% on 2 L. GENERAL APPEARANCE: Lying in bed, appears comfortable. EYES: Pupils equal. Conjunctiva normal. NECK: JVD not raised. Mass not palpable. RESPIRATORY: Respiratory effort normal. Lungs sounds distant to auscultation. CARDIOVASCULAR: First and second sounds normal. No edema. ABDOMEN: Soft. Pendulous abdomen, Liver and spleen not palpable. No tenderness. No mass palpable. PSYCHIATRY: Alert and oriented x3. Mood and affect normal. INVESTIGATIONS: Hemoglobin 9.6, platelet count 64, BUN 51, creatinine 5.73, ASSESSMENT: Acute kidney injury, possibly acute tubular necrosis , nonoliguric Persistent atrial fibrillation, not a candidate for anticoagulation. Thrombocytopenia, likely idiopathic thrombocytopenic purpura Fatty liver. Chronic obstructive pulmonary disease and ex-smoker. Osteoarthritis of multiple joints, bilateral. Obstructive sleep apnea, uses a CPAP. Chronic gout. Morbid obesity, body mass index of more than 70. Chronic hypoxic respiratory failure on 2 L of oxygen from underlying chronic obstructive pulmonate disease. Chronic medical debility uses lift and wheelchair. PLAN: Nephrology continues to follow patient, dopamine drip continues with good results. Patient's TSH low, will consider using Synthroid. Patient's prognosis is guarded plan of care discussed with the patient and daughter and both are agreeable. We'll continue to follow closely. FUNERAL SERVICE MANAGER statement: Patient was seen and examined by nurse practitioner Beatrice Fajardo in all elements of the case discussed with attending is Dr. Stephens
--- NOTE | 2017-04-15 14:51 | PN ---
Patient is seen for follow-up for acute kidney injury. Currently she is lying in bed. She is comfortable, awake, alert, oriented x3. Patient's family is present at bedside. She has an indwelling Arteaga catheter and has had urine output of about 950 mL for 24 hours. Patient was admitted with a creatinine of 5.1 mg/dL as outpatient, which it had increased from a baseline of about 2.5. Patient's blood pressure had been on the lower side and as outpatient at [facility] prior to admission. Since she was admitted they started her on dopamine. Initially patient had no urine output; however, her urine output has now improved. She is not on any nephrotoxic medications and there is no evidence of obstructive uropathy on the ultrasound. No suspicion for acute interstitial nephritis. I have discussed with the patient regarding her renal function and at this time she is agreeable to starting renal replacement therapy if renal function does not improve. Systolic blood pressures is still staying at about 95 to 100 mmHg with highest at 115. The dopamine will be increased further today. On examination, blood pressure is 114/65, heart rate 65 per minute. She is afebrile. Examination of the heart: S1 and S2. Examination of the lungs: Bilateral breath sounds are heard. Abdomen is soft, morbidly obese. Heart sounds and breath sounds are distant secondary to body habitus. Examination of lower extremities shows significant chronic skin changes bilaterally with edema noted in her lower extremities as well. No draining wounds are seen. Labs show sodium 143, potassium 4.4, chloride 101, CO2 33, BUN 51, serum creatinine 5.73, hemoglobin 9.6 g/dL. UA shows 1+ protein, trace leukocyte esterase, no blood is noted. ASSESSMENT: 1. Acute kidney injury, most likely acute tubular necrosis secondary to hypotension and hypoperfusion. No evidence of obstructive uropathy clinical picture and urinalysis is not suggestive of acute interstitial nephritis. I will increase the dopamine to 5 mcg and I will start her on IV fluids as well and repeat labs in a.m. At this time patient has agreed to renal replacement therapy in case her renal function is worse. She has been nauseated and has not been able to maintain good oral intake over the last few days. 2. Morbid obesity. 3. History of hypertension. Blood pressure currently is staying on the lower side. 4. Atrial fibrillation, not on anticoagulation. 5. Chronic obstructive pulmonary disease. 6. Obstructive sleep apnea. 7. Chronic kidney disease with baseline creatinine about 2.3 in January 2017 and previously as low as 1.3 and 1.4 in September 2016 and November 2016. PLAN: Increase dopamine to 5 mcg and start IV fluids at 70 mL/h and repeat labs in a.m.
[2017-04-15] MEDS: CHOLECALCIFEROL 1,000 UNIT TAB PO SCH ×2 (16:43→17:42)
[2017-04-15] MEDS: ASPIRIN 81 MG CHEW PO SCH ×2 (16:43→17:42)
[2017-04-15] MEDS: FERROUS SULFATE 325 MG TAB PO SCH ×2 (16:43→17:42)
[2017-04-15] MEDS: FOLIC ACID 1 MG TAB PO SCH ×2 (16:43→17:42)
[2017-04-15] MEDS: CARBAMIDE PEROXIDE 6.5% DROPS 15 ML BTL RIGHT EAR SCH (21:20)
[2017-04-15] MEDS: ATORVASTATIN 40 MG TAB PO SCH (21:20)
[2017-04-15] MEDS: SODIUM CHLORIDE 0.9% 1,000 ML IV SCH ×3 (22:19→22:20)
[2017-04-16] MEDS: SODIUM CHLORIDE 0.9% 1,000 ML IV SCH ×4 (06:43→22:42)
[2017-04-16] MEDS: DEXTROSE/WATER 1 500ML.BAG with DOPamine DRIP 800 MG IV SCH ×6 (06:44→22:40)
[2017-04-16] MEDS: PANTOPRAZOLE 40 MG TABLET PO SCH (06:44)
[2017-04-16 06:57] LABS: Anisocytosis Moderate; Basophils % (A) 0 %; CHCM 29.1; Eosinophils # (A) 0.1 k/uL (0-0.7); Eosinophils % (A) 3 %; HCT 35.6 % (34.0-46.0); HDW 3.13; HGB 10.4 gm/dL (11.4-16.0); Hypochromasia Marked; Luc % (Auto) 2; Lymphocytes # (A) 0.6 k/uL (1.0-4.8); Lymphocytes % (A) 13 %; MCH 31.5 pg (25.0-35.0); MCHC 29.2 g/dL (31.0-37.0); MCV 107.9 fL (80.0-100.0); Macrocytosis Marked; Mean Platelet Volume 9.2; Monocytes # (A) 0.5 k/uL (0-1.0); Monocytes % (A) 10 %; Neutrophils # (A) 3.2 k/uL (1.3-7.7); Neutrophils % (A) 72 %; Potassium 4.5 mmol/L (3.5-5.1); RDW 21.4 % (11.5-15.5); WBC 4.5 k/uL (3.8-10.6); WBC (Perox) 4.58
--- NOTE | 2017-04-16 07:19 | PN ---
DATE OF SERVICE: 04/15/2017 ATTENDING NOTE: This patient was seen and examined by me earlier today. Patient with acute kidney injury. Has been on dopamine drip earlier. Not much oral intake because of nausea. On examination, blood pressure 105/58. The patient lying in bed, not grossly short of breath. ABDOMEN: Soft and nontender. PSYCHIATRY: Awake, alert. Answering questions. Lower extremities some edema is present. INVESTIGATIONS: BUN 51, creatinine 5.73. ASSESSMENT: 1. Acute kidney disease, possibly acute tubular necrosis nonoliguric, worsening. 2. Persistent atrial fibrillation, not a candidate for anticoagulation. 3. Thrombocytopenia, likely idiopathic thrombocytopenic purpura. 4. Primary osteoarthritis of multiple joints, bilateral. PLAN: Nephrology spoke with the patient. Looking at renal replacement therapy/hemodialysis. Patient is agreeable to the same especially in view of persistent nausea from the same.
[2017-04-16 08:27] LABS: Manual Review Performed; Target Cells Present
--- NOTE | 2017-04-16 08:40 | P.PN ---
Subjective Patient is seen in follow-up for acute kidney injury on chronic kidney disease. Patient has chronic kidney disease stage IIIB secondary to nephrosclerosis with baseline creatinine in the range of 2-2.5. Her creatinine peaked at 5.73 and is 5.5 today. Patient admits to nausea and has a poor appetite. Her urine output in the last 24 hours was about 500 mL. She is currently maintained on dopamine as well as IV fluids. Diuretics were held. Denies chest pain or shortness of breath. Vital signs are stable. General: The patient appeared well nourished and normally developed. HEENT: Head exam is unremarkable. Neck is without jugular venous distension. LUNGS: Lungs are clear to auscultation and percussion. Breath sounds decreased. HEART: Rate and Rhythm are regular. First and second heart sounds normal. No murmurs, rubs or gallops. ABDOMEN: Abdominal exam reveals normal bowel sounds. Non-tender and non- distended. No evidence of peritonitis. EXTREMITITES: 1+ edema. Wound dressing clean and dry with no obvious drainage. Chronic changes noted. Objective - Vital Signs Vital signs: Vital Signs Temp 97.4 F L 04/16/17 04:00 Pulse 72 04/16/17 04:00 Resp 18 04/16/17 04:00 BP 113/65 04/16/17 04:00 Pulse Ox 98 04/16/17 04:00 Intake & Output 04/15/17 04/16/17 04/16/17 18:59 06:59 18:59 Intake Total 160 1320 Output Total 250 275 Balance -90 1045 Weight 202.3 kg Intake: Intake, IV Titration 160 1320 Amount Dextrose/Water 1 500ml. 480 bag @ 5 MCG/KG/MIN 40.31 mls/hr IV .[id number] CARLOS with DOPamine DRIP 800 mg Rx#:[id number] Sodium Chloride 0.9% 1, 160 840 000 ml @ 70 mls/hr IV . [id number] CARLOS Rx#:[id number] Output: Urine 250 275 Other: Voiding Method Indwelling Catheter Indwelling Catheter - Labs CBC & Chem 7: 04/16/17 06:20 04/16/17 06:20 Labs: Abnormal Lab Results - Last 24 Hours (Table) 04/15/17 04/16/17 04/16/17 Range/Units 06:05 06:20 06:20 RBC 3.08 L 3.30 L (3.80-5.40) m/uL Hgb 9.6 L 10.4 L (11.4-16.0) gm/dL Hct 32.6 L (34.0-46.0) % MCV 105.9 H 107.9 H (80.0-100.0) fL MCHC 29.5 L 29.2 L (31.0-37.0) g/dL RDW 21.9 H 21.4 H (11.5-15.5) % Plt Count 64 L 81 L (150-450) k/uL Lymphocytes # 0.5 L 0.6 L (1.0-4.8) k/uL BUN 52 H (7-17) mg/dL Creatinine 5.59 H* (0.52-1.04) mg/dL Assessment and Plan Plan: Assessment: #1. Acute kidney injury secondary to ischemic ATN secondary to hypotension. No significant improvement in renal function. Creatinine 5.59 today. #2. Chronic kidney disease stage IIIB secondary to nephrosclerosis with baseline creatinine in the range of 2-2.5. #3. Hypertension with chronic kidney disease. Blood pressures now on the lower side. #4. Morbid obesity. Plan: As patient has poor urine output and no significant improvement in renal function, I will plan for first treatment of hemodialysis today. She does have some signs of uremia including nausea and poor appetite. Continue with dopamine as well as IV fluids. Avoid nephrotoxic agents and hypotensive episodes. Maintain Arteaga catheter for strict I's and O's.
[2017-04-16] MEDS: ONDANSETRON 4 MG/2 ML VIAL IVP PRN (09:23)
[2017-04-16] MEDS: IPRATROPIUM-ALBUTEROL 3 ML NEB INHALATION SCH ×4 (09:25→19:59)
[2017-04-16] MEDS ORDERED: LIDOCAINE 2% INJ 20 MG/ML (20 ML MDV) ONE (10:43)
[2017-04-16] MEDS ORDERED: SODIUM CHLORIDE 0.9% 1,000 ML IV ONE (10:58)
[2017-04-16] MEDS ORDERED: fentaNYL (PF) 50 MCG/ML 2 ML AMP ONE (11:00)
[2017-04-16] MEDS ORDERED: fentaNYL (PF) 50 MCG/ML 2 ML AMP IVP ONE (11:02)
[2017-04-16] MEDS ORDERED: LIDOCAINE 2% INJ 20 MG/ML SQ ONE (11:03)
[2017-04-16] MEDS ORDERED: MIDAZOLAM 2 MG/2 ML VIAL ONE (11:04)
[2017-04-16] MEDS ORDERED: MIDAZOLAM 2 MG/2 ML VIAL IVP ONE (11:06)
[2017-04-16] MEDS ORDERED: HEPARIN SODIUM 1,000 UNIT/ML VIAL ONE (11:23)
[2017-04-16] MEDS: ALLOPURINOL 100 MG TAB PO SCH (12:26)
[2017-04-16] MEDS: METOPROLOL TARTRATE 50 MG TAB PO SCH (12:26)
[2017-04-16] MEDS: ISOSORBIDE MONONITRATE ER 30 MG TAB.ER.24H PO SCH (12:26)
[2017-04-16] MEDS: MENTHOL-ZINC OXIDE OINT 113 GM TUBE TOPICAL SCH (12:31)
[2017-04-16] MEDS: AMMONIUM LACTATE 12% CREAM 140 GM TUBE TOPICAL SCH ×2 (12:31→16:55)
--- NOTE | 2017-04-16 12:47 | XR ---
EXAMINATION TYPE: XR chest 1V portable DATE OF EXAM: 04/16/2017 COMPARISON: 04/13/2017 HISTORY: Dialysis catheter insertion TECHNIQUE: Single frontal view of the chest is obtained. FINDINGS: There is bilateral small effusion left lower lobe infiltrate. Arthropathy of the shoulders seen with right-sided dialysis catheter and tip overlying the SVC. No pneumothorax. Cardiomegaly not ed. IMPRESSION: 1. Bilateral airspace disease and pleural effusion correlate for mild venous congestion 2. No pneumothorax.
--- NOTE | 2017-04-16 13:05 | CONS ---
DATE OF CONSULTATION: This is a 66-year-old female with history of renal insufficiency and morbid obesity. Patient came with nausea and vomiting and a high BUN and creatinine. I was consulted for placement of dialysis catheter. Patient has history of GI bleed and history of A. fib in the past. She is not on any anticoagulation. Her GFR is 25 documented 9% of attending physician. Patient was seen by Dr. Eduardo and requested placement of dialysis catheter. Past medical history includes history of atrial fibrillation, has some heart failure, hypertension, osteoarthritis, sleep apnea. On examination, patient is a well-developed. Neck is supple. No bruit appreciated. Patient has normal breath sounds bilaterally. First and second sounds present. ABDOMEN: Protuberant. No mass palpable. LAB FINDINGS: Her hemoglobin is 9.3. Potassium is 3.9. IMPRESSION: 1. Acute on chronic renal failure. 2. History of morbid obesity. Plan is placement of dialysis catheter. Risks and complications of bleeding, infection, thrombosis has been discussed.
[2017-04-16] MEDS: ASPIRIN 81 MG CHEW PO SCH (16:55)
[2017-04-16] MEDS: CHOLECALCIFEROL 1,000 UNIT TAB PO SCH (16:55)
[2017-04-16] MEDS: FERROUS SULFATE 325 MG TAB PO SCH (16:55)
[2017-04-16] MEDS: FOLIC ACID 1 MG TAB PO SCH (16:56)
--- NOTE | 2017-04-16 17:42 | IR ---
Fluoroscopy HISTORY: Pain 2.2 minutes fluoroscopy time supplied to the referring clinician. 665 intraoperative C-arm images do cument the procedure. See dictated report from vascular surgery.
--- NOTE | 2017-04-16 19:45 | P.PN ---
Progress Note - Text DATE OF SERVICE: 04/16/2017 PRESENTING COMPLAINT: Worsening renal failure INTERVAL HISTORY: This is a 66-year-old female who has acute kidney injury, secondary to ischemic acute tubular necrosis. Today the patient is lying in bed appears uncomfortable. . Does not feel like eating, nauseated, no emesis, when food present it makes her feel worse. Able to move around in her bed,with assistance patient is obese. Producing urine,about 500 ml, lower extremities wrapped with Everette wraps to aid with venous return. Continues on dopamine IV 5 mcg/kg/min , diuretics held per nephrology . Scheduled for hemodialysis catheter placement this morning and received a round of hemodialysis later this afternoon. REVIEW OF SYSTEMS: Done for constitutional ,cardiovascular, GI, , pulmonary with relevant findings as above. CURRENT MEDICATIONS DuoNeb, Zyloprim, aspirin, Lipitor, Protonix, Lopressor, potassium, dopamine PHYSICAL EXAM: VITAL SIGNS: Temperature 96.7, pulse 90, respiratory rate 18, blood pressure 105/56, oxygen saturation 91% on 3 L. GENERAL APPEARANCE: Lying in bed, appears comfortable. EYES: Pupils equal. Conjunctiva normal. NECK: JVD unable to assess. Mass not palpable. RESPIRATORY: Respiratory effort mildly labored.. Lungs sounds distant to auscultation. CARDIOVASCULAR: First and second sounds normal. Some edema legs Everette wrapped area ABDOMEN: Soft. Pendulous abdomen, Liver and spleen not palpable. No tenderness. No mass palpable. PSYCHIATRY: Alert and oriented x3. Mood and affect normal. INVESTIGATIONS: Hemoglobin 10.4, platelet count 81, BUN 52, creatinine 5.59. Chest x-ray: Right-sided hemodialysis catheter with tip overlying the SVC. No pneumothorax. ASSESSMENT: Acute kidney injury, secondary to ischemic acute tubular necrosis , nonoliguric , worsening. Chronic kidney disease stage IIIB secondary to nephrosclerosis, baseline creatinine 2-2.5. Persistent atrial fibrillation, not a candidate for anticoagulation. Thrombocytopenia, likely idiopathic thrombocytopenic purpura Fatty liver. Chronic obstructive pulmonary disease and ex-smoker. Primary osteoarthritis of multiple joints, bilateral. Obstructive sleep apnea, uses a CPAP. Chronic gout. Morbid obesity, body mass index of more than 70. Chronic hypoxic respiratory failure on 2 L of oxygen from underlying chronic obstructive pulmonate disease. Chronic medical debility uses lift and wheelchair. PLAN: Nephrology continues to follow patient, dopamine drip continues, not a significant increase in urine output. Renal replacement therapy/hemodialysis will be initiated once patient has her dialysis catheter placed today. Patient' s prognosis is guarded plan of care discussed with the patient and granddaughters and both are agreeable. We'll continue to follow closely. BEHAVIORAL HEALTH DIRECTOR statement: Patient was seen and examined by nurse practitioner Beatrice Fajardo in all elements of the case discussed with attending is Dr. Stephens
--- NOTE | 2017-04-16 23:30 | PCN ---
DATE OF PROCEDURE: PREOPERATIVE DIAGNOSIS: Acute on chronic renal failure. PROCEDURE: Placement of a dialysis catheter, 28 cm, ultrasound-guided, right internal jugular approach. PROCEDURE: This patient was brought to the center medical and lab director. Right side of the neck and chest was prepped and draped in usual sterile manner. Lidocaine 1% was infiltrated into the neck and chest area. Ultrasound-guided micropuncture was introduced into the right internal jugular vein. Micropuncture guidewire was passed. Then we passed a regular guidewire, which was parked in the inferior vena cava. After that, we created a tunnel. Through the tunnel we brought the 28 cm dialysis catheter. Dilator was advanced on top of the guidewire. The sheath was advanced. Through the sheath we introduced the dialysis catheter ( ) vena cava ( ) atrial junction, flushed with heparin saline. Incision was closed nylon and dressing applied. Patient tolerated the procedure well.
[2017-04-17] MEDS: ATORVASTATIN 40 MG TAB PO SCH ×2 (00:04→23:53)
[2017-04-17] MEDS: METOPROLOL TARTRATE 50 MG TAB PO SCH ×5 (00:05→23:56)
[2017-04-17] MEDS: CARBAMIDE PEROXIDE 6.5% DROPS 15 ML BTL RIGHT EAR SCH ×2 (00:06→23:52)
[2017-04-17] MEDS: AMMONIUM LACTATE 12% CREAM 140 GM TUBE TOPICAL SCH ×4 (00:10→23:50)
[2017-04-17] MEDS: MENTHOL-ZINC OXIDE OINT 113 GM TUBE TOPICAL SCH ×3 (00:10→23:57)
[2017-04-17 06:28] LABS: Anisocytosis Moderate; Basophils % (A) 0 %; CHCM 29.8; Eosinophils # (A) 0.1 k/uL (0-0.7); Eosinophils % (A) 3 %; HCT 35.1 % (34.0-46.0); HDW 3.31; HGB 10.3 gm/dL (11.4-16.0); Hypochromasia Marked; Luc # (Auto) 0.09; Luc % (Auto) 2; Lymphocytes # (A) 0.5 k/uL (1.0-4.8); Lymphocytes % (A) 11 %; MCH 30.7 pg (25.0-35.0); MCHC 29.2 g/dL (31.0-37.0); MCV 105.2 fL (80.0-100.0); Macrocytosis Marked; Mean Platelet Volume 8.4; Monocytes # (A) 0.3 k/uL (0-1.0); Monocytes % (A) 6 %; Neutrophils # (A) 3.6 k/uL (1.3-7.7); Neutrophils % (A) 78 %; RBC 3.34 m/uL (3.80-5.40); RDW 21.4 % (11.5-15.5); WBC 4.6 k/uL (3.8-10.6); WBC (Perox) 4.65
[2017-04-17 06:39] LABS: Anion Gap 10 mmol/L; Blood Urea Nitrogen 40 mg/dL (7-17); Calcium 8.8 mg/dL (8.4-10.2); Carbon Dioxide 29 mmol/L (22-30); Chloride 101 mmol/L (98-107); Glucose 86 mg/dL (74-99); Potassium 4.1 mmol/L (3.5-5.1); Sodium 140 mmol/L (137-145)
[2017-04-17 06:46] LABS: Non-African American GFR(MDRD) 10 (>60 ml/min/1.73 sqM)
[2017-04-17] MEDS: IPRATROPIUM-ALBUTEROL 3 ML NEB INHALATION SCH ×4 (07:02→20:29)
[2017-04-17 07:10] LABS: Hepatitis B Surface Ag Index 0.05
[2017-04-17 07:27] LABS: Hepatitis B Surface Antibody Negative (Negative)
--- NOTE | 2017-04-17 08:45 | P.PN ---
Subjective Patient is seen in follow-up for acute kidney injury on chronic kidney disease. Patient has chronic kidney disease stage IIIB secondary to nephrosclerosis with baseline creatinine in the range of 2-2.5. Her creatinine peaked at 5.73 this admission. Patient admits to nausea and has a poor appetite. Her urine output in the last 24 hours was about 600 mL. She is currently maintained on dopamine as well as IV fluids. Diuretics are held. Denies chest pain or shortness of breath. She underwent first treatment of hemodialysis on April 16. Vital signs are stable. General: The patient appeared well nourished and normally developed. HEENT: Head exam is unremarkable. Neck is without jugular venous distension. LUNGS: Lungs are clear to auscultation and percussion. Breath sounds decreased. HEART: Rate and Rhythm are regular. First and second heart sounds normal. No murmurs, rubs or gallops. ABDOMEN: Abdominal exam reveals normal bowel sounds. Non-tender and non- distended. No evidence of peritonitis. EXTREMITITES: 1+ edema. Wound dressing clean and dry with no obvious drainage. Chronic changes noted. Objective - Vital Signs Vital signs: Vital Signs Temp 97.2 F L 04/17/17 04:00 Pulse 76 04/17/17 04:00 Resp 18 04/17/17 04:00 BP 117/63 04/17/17 04:00 Pulse Ox 95 04/17/17 04:00 Intake & Output 04/16/17 04/17/17 04/17/17 18:59 06:59 18:59 Intake Total 125 Output Total 225 400 Balance -100 -400 Weight 199.3 kg Intake: IV 125 Output: Urine 225 400 Other: Voiding Method Indwelling Catheter Indwelling Catheter # Voids 0 # Bowel Movements 0 - Labs CBC & Chem 7: 04/17/17 05:33 04/17/17 05:33 Labs: Abnormal Lab Results - Last 24 Hours (Table) 04/17/17 04/17/17 Range/Units 05:33 05:33 RBC 3.34 L (3.80-5.40) m/uL Hgb 10.3 L (11.4-16.0) gm/dL MCV 105.2 H (80.0-100.0) fL MCHC 29.2 L (31.0-37.0) g/dL RDW 21.4 H (11.5-15.5) % Plt Count 72 L (150-450) k/uL Lymphocytes # 0.5 L (1.0-4.8) k/uL BUN 40 H (7-17) mg/dL Creatinine 4.50 H (0.52-1.04) mg/dL Assessment and Plan Plan: Assessment: #1. Acute kidney injury secondary to ischemic ATN secondary to hypotension. Currently hemodialysis dependent. Underwent first treatment of hemodialysis on April 16. #2. Chronic kidney disease stage IIIB secondary to nephrosclerosis with baseline creatinine in the range of 2-2.5. #3. Hypertension with chronic kidney disease. Blood pressures now on the lower side. #4. Morbid obesity. Plan: Second treatment of hemodialysis today. Continue with dopamine as well as IV fluids. Avoid nephrotoxic agents and hypotensive episodes. Maintain Arteaga catheter for strict I's and O's. Encouraged oral intake.
[2017-04-17] MEDS: ONDANSETRON 4 MG/2 ML VIAL IVP PRN (08:46)
[2017-04-17] MEDS: ISOSORBIDE MONONITRATE ER 30 MG TAB.ER.24H PO SCH (08:56)
[2017-04-17] MEDS: ALLOPURINOL 100 MG TAB PO SCH (08:56)
[2017-04-17] MEDS: PANTOPRAZOLE 40 MG TABLET PO SCH (08:56)
--- NOTE | 2017-04-17 09:14 | PN ---
DATE OF SERVICE: 04/16/2017 ATTENDING NOTE: This patient was seen and examined by me on 04/16/2017. I reviewed the note of my nurse practitioner, Ms. Fajardo. Discussed, reviewed additional findings below. This is a patient admitted with acute kidney injury, worsening renal failure, has been on dopamine drip. When I saw this patient in the morning, the patient already had a dialysis catheter placed on the right chest wall, pending dialysis. Family was at the bedside. Patient is tired with a poor appetite, nausea. Daughter is present. On examination, blood pressure 105/56. LUNGS: Distant breath sounds. CARDIOVASCULAR: Heart sounds distant. PSYCH: Awake, answering questions, tired appearing. INVESTIGATIONS: Hemoglobin 10.4. BUN 52, creatinine 5.59. ASSESSMENT: 1. Acute kidney injury, nonoliguric on dopamine drip, worsening. 2. Renal replacement therapy to be started. Patient already has a dialysis catheter placed. 3. Signs of uremia including tiredness, nausea, all present hopefully should get better with dialysis. Discussed this with the daughter. PLAN: Care was discussed with the patient and daughter. Questions were answered. Hopefully her symptoms will get better after dialysis ( ) this afternoon. Will follow.
[2017-04-17] MEDS: DEXTROSE/WATER 1 500ML.BAG with DOPamine DRIP 800 MG IV SCH ×2 (11:08→23:50)
[2017-04-17] MEDS: SODIUM CHLORIDE 0.9% 1,000 ML IV SCH (11:08)
--- NOTE | 2017-04-17 15:05 | P.PN ---
Progress Note - Text DATE OF SERVICE: 04/17/2017 PRESENTING COMPLAINT: Worsening renal failure INTERVAL HISTORY: This is a 66-year-old female who has acute kidney injury, secondary to ischemic acute tubular necrosis. Today the patient is lying in bed appears uncomfortable and tired. Nausea continues, received first round of hemodialysis on Sunday after her dialysis port placement. Blood pressure low this morning see below, manually retaken found to be 130/80. Iron supplementation discontinued secondary to nausea. No BM for about the past week , lactulose, Dulcolax ordered. Lower extremities wrapped with Everette wraps to aid with venous return. Continues on dopamine IV 5 mcg/kg/min, diuretics held per nephrology . Scheduled for hemodialysis today. REVIEW OF SYSTEMS: Done for constitutional ,cardiovascular, GI, , pulmonary with relevant findings as above. CURRENT MEDICATIONS DuoNeb, Zyloprim, aspirin, Lipitor, Protonix, Lopressor, potassium, dopamine drip PHYSICAL EXAM: VITAL SIGNS: Temperature 97.3, pulse 68, respiratory rate 18, blood pressure 85/48, oxygen saturation 100% on 3 L. GENERAL APPEARANCE: Lying in bed, appears uncomfortable.. EYES: Pupils equal. Conjunctiva normal. NECK: JVD unable to assess. Mass not palpable. RESPIRATORY: Respiratory effort mildly labored.. Lungs sounds distant to auscultation. CARDIOVASCULAR: First and second sounds normal. Moderate edema legs Everette wrapped. ABDOMEN: Soft. Pendulous abdomen, Liver and spleen not palpable. No tenderness. No mass palpable. PSYCHIATRY: Alert and oriented x3. Mood and affect tired appearing. INVESTIGATIONS: Hemoglobin 10.3, platelet count 72, sodium 140, potassium 4.1, BUN 40, creatinine 4.50. Chest x-ray: Right-sided hemodialysis catheter with tip overlying the SVC. No pneumothorax. ASSESSMENT: Acute kidney injury, secondary to ischemic acute tubular necrosis , nonoliguric , on dopamine drip, first hemodialysis 04/16, slowly improving Renal replacement therapy initiated 04/16. Second round expected today. Uremia secondary to acute kidney injury, tired nausea, should get better with continued dialysis. Chronic kidney disease stage IIIB secondary to nephrosclerosis, baseline creatinine 2-2.5. Persistent atrial fibrillation, not a candidate for anticoagulation. Thrombocytopenia, likely idiopathic thrombocytopenic purpura Constipation, lactulose and Dulcolax given, await results. Fatty liver. Chronic obstructive pulmonary disease and ex-smoker. Primary osteoarthritis of multiple joints, bilateral. Obstructive sleep apnea, uses a CPAP. Chronic gout. Morbid obesity, body mass index of more than 70. Chronic hypoxic respiratory failure on 2 L of oxygen from underlying chronic obstructive pulmonate disease. Chronic medical debility uses lift and wheelchair. PLAN: Nephrology continues to follow patient, dopamine drip and fluids continue. Renal replacement therapy/hemodialysis completed 04/16, and a second round expected today. Constipated, lactulose given, await results. Patient's prognosis is guarded plan of care discussed with the patient and daughter , questions answered to their satisfaction, and both are agreeable. We'll continue to follow closely. REPAIRER SCREEN CRUSHER statement: Patient was seen and examined by nurse practitioner Beatrice Fajardo in all elements of the case discussed with attending is Dr. Stephens
[2017-04-17] MEDS: ASPIRIN 81 MG CHEW PO SCH ×2 (16:03→18:40)
[2017-04-17] MEDS: CHOLECALCIFEROL 1,000 UNIT TAB PO SCH ×2 (16:03→18:40)
[2017-04-17] MEDS: FOLIC ACID 1 MG TAB PO SCH ×2 (16:03→18:40)
[2017-04-18] MEDS: PANTOPRAZOLE 40 MG TABLET PO SCH (06:28)
[2017-04-18] MEDS: IPRATROPIUM-ALBUTEROL 3 ML NEB INHALATION SCH ×4 (06:47→20:16)
[2017-04-18 07:29] LABS: Calcium 8.4 mg/dL (8.4-10.2)
[2017-04-18 07:34] LABS: Potassium 4.4 mmol/L (3.5-5.1)
[2017-04-18] MEDS: AMMONIUM LACTATE 12% CREAM 140 GM TUBE TOPICAL SCH ×3 (09:27→22:07)
[2017-04-18] MEDS: ALLOPURINOL 100 MG TAB PO SCH (09:27)
[2017-04-18] MEDS: METOPROLOL TARTRATE 50 MG TAB PO SCH ×2 (09:28→22:06)
[2017-04-18] MEDS: ISOSORBIDE MONONITRATE ER 30 MG TAB.ER.24H PO SCH (09:28)
[2017-04-18] MEDS: MENTHOL-ZINC OXIDE OINT 113 GM TUBE TOPICAL SCH ×2 (09:28→22:07)
[2017-04-18] MEDS: SODIUM CHLORIDE 0.9% 1,000 ML IV SCH ×2 (09:29→16:58)
[2017-04-18] MEDS ORDERED: FUROSEMIDE 10 MG/ML 10 ML VIAL IV STA (10:10)
--- NOTE | 2017-04-18 10:10 | P.PN ---
Subjective Patient is seen in follow-up for acute kidney injury on chronic kidney disease. Patient has chronic kidney disease stage IIIB secondary to nephrosclerosis with baseline creatinine in the range of 2-2.5. Her creatinine peaked at 5.73 this admission. Patient was nauseous and had a poor appetite which are both improved today. Her urine output in the last 24 hours was about 600 mL. She is currently maintained on dopamine as well as IV fluids. Diuretics are held. Denies chest pain or shortness of breath. She underwent second treatment of hemodialysis on April 17. Vital signs are stable. General: The patient appeared well nourished and normally developed. HEENT: Head exam is unremarkable. Neck is without jugular venous distension. LUNGS: Lungs are clear to auscultation and percussion. Breath sounds decreased. HEART: Rate and Rhythm are regular. First and second heart sounds normal. No murmurs, rubs or gallops. ABDOMEN: Abdominal exam reveals normal bowel sounds. Non-tender and non- distended. No evidence of peritonitis. EXTREMITITES: 1+ edema. Wound dressing clean and dry with no obvious drainage. Chronic changes noted. Objective - Vital Signs Vital signs: Vital Signs Temp 97.7 F 04/18/17 03:50 Pulse 70 04/18/17 07:00 Resp 18 04/18/17 03:50 BP 119/67 04/18/17 03:50 Pulse Ox 100 04/18/17 00:00 Intake & Output 04/17/17 04/18/17 04/18/17 18:59 06:59 18:59 Intake Total 880 0 Output Total 200 Balance 880 -200 0 Weight 199.3 kg 198.7 kg Intake: Intake, IV Titration 880 Amount Dextrose/Water 1 500ml. 320 bag @ 5 MCG/KG/MIN 40.31 mls/hr IV .[id number] [facility] with DOPamine DRIP 800 mg Rx#:[id number] Sodium Chloride 0.9% 1, 560 000 ml As IV .[employer] Rx#:[id number] Oral 0 Output: Urine 200 Other: Voiding Method Indwelling Catheter Indwelling Catheter # Voids 0 - Labs CBC & Chem 7: 04/17/17 05:33 04/18/17 06:18 Labs: Abnormal Lab Results - Last 24 Hours (Table) 06/20/17 06/21/17 Range/Units 05:33 06:18 BUN 30 H (7-17) mg/dL Creatinine 3.55 H (0.52-1.04) mg/dL Hep B Core Total Ab Reactive H (Non-Reactive) Assessment and Plan Plan: Assessment: #1. Acute kidney injury secondary to ischemic ATN secondary to hypotension. Currently hemodialysis dependent. Underwent second treatment of hemodialysis on April 17. #2. Chronic kidney disease stage IIIB secondary to nephrosclerosis with baseline creatinine in the range of 2-2.5. #3. Hypertension with chronic kidney disease. Blood pressures now on the lower side. #4. Morbid obesity. Plan: Hold dialysis today. Lasix 80 mg IV once today. Continue with dopamine as well as IV fluids. Avoid nephrotoxic agents and hypotensive episodes. Maintain Arteaga catheter for strict I's and O's. Encouraged oral intake.
[2017-04-18] MEDS ORDERED: FUROSEMIDE 10 MG/ML 4 ML VIAL ONE (10:55)
--- NOTE | 2017-04-18 15:44 | PN ---
DATE OF SERVICE: 04/17/17. ATTENDING NOTE: This patient was seen and examined by me on 04/17/17. I reviewed the note of my nurse practitioner, Ms. Fajardo. Discussed reviewed additional finings below. This is a patient with progressive renal failure, who has been on dopamine drip, now started on hemodialysis. Feeling weak and tired. The patient is due to get hemodialyzed today, complaining of constipation. Lactulose has been ordered. On examination, blood pressure 85/45. Repeat blood pressure checked manually was 133/70. LUNGS: Distant breath sounds. CARDIOVASCULAR: Heart sounds distant edema is present. Everette wraps. Investigations: Potassium 4.1, hemoglobin 10.3. ASSESSMENT: 1. Acute kidney injury secondary to acute tubular necrosis on dopamine now started on hemodialysis on 04/16/17. 2. Uremic symptoms including weak, tired, nausea expected to get better with dialysis. PLAN: Care was discussed with the patient's family is at bedside. Lactulose has been ordered. If ( ) enema was will be given. The patient may need a couple days of hemodialysis before she is goes back to the ECF.
[2017-04-18] MEDS: CHOLECALCIFEROL 1,000 UNIT TAB PO SCH (16:59)
[2017-04-18] MEDS: ASPIRIN 81 MG CHEW PO SCH (16:59)
[2017-04-18] MEDS: FOLIC ACID 1 MG TAB PO SCH (17:00)
[2017-04-18] MEDS: CARBAMIDE PEROXIDE 6.5% DROPS 15 ML BTL RIGHT EAR SCH (22:07)
[2017-04-18] MEDS: ATORVASTATIN 40 MG TAB PO SCH (22:07)
[2017-04-19 05:57] VITALS: RESP 18
[2017-04-19 06:12] LABS: Calcium 8.6 mg/dL (8.4-10.2); Potassium 3.7 mmol/L (3.5-5.1)
[2017-04-19] MEDS: PANTOPRAZOLE 40 MG TABLET PO SCH (06:34)
[2017-04-19] MEDS: DEXTROSE/WATER 1 500ML.BAG with DOPamine DRIP 800 MG IV SCH ×2 (06:35)
[2017-04-19] MEDS: IPRATROPIUM-ALBUTEROL 3 ML NEB INHALATION SCH ×4 (06:58→20:35)
--- NOTE | 2017-04-19 07:22 | PN ---
DATE OF SERVICE: 04/18/2017 This 67-year-old woman was admitted with acute kidney disease secondary to acute tubular necrosis. Was on Dopamine. The patient started hemodialysis with PermCath on the right side. The patient is feeling slightly better. Nephrology is following the patient closely. The most recent chest x-ray was done about two days ago, showed bilateral air space disease and pleural effusion and congestion without any pneumothorax. Past medical history reviewed. REVIEW OF SYSTEMS: CARDIOVASCULAR: As mentioned earlier. GI: As mentioned earlier. : As mentioned earlier. CENTRAL NERVOUS SYSTEM: Generalized weakness. Current medications are reviewed and include: 1. Tylenol 650 q.4 p.r.n. 2. Ventolin 2.5 q.4. p.r.n. . 3. Zyloprim 100 mg. 4. Aspirin 81 mg. 5. Lipitor 40 mg. 7. Calamine lotion. 8. Debrox ointment. 9. Vitamin D3. 10. Folic acid. 12. Lactose 10 grams daily. 13. Lopressor 25 mg p.o. b.i.d. 14. Milk of magnesia 2.4 daily p.r.n. 15. Zofran 4 mg q.6. 16. Protonix 40 mg daily. PHYSICAL EXAMINATION: The patient is alert and oriented x three. Pulse 79, blood pressure 140/82, respirations 16. Temperature is normal, pulse ox is 100% on room air. HEENT: Conjunctivae normal. NECK: No jugular venous distention. CARDIOVASCULAR: S1, S2 muffled. RESPIRATORY: Breath sounds diminished at the bases. A few scattered rhonchi and crackles. ABDOMEN: Soft, obese, nontender. LEGS: No edema. No swelling. CENTRAL NERVOUS SYSTEM: Diffusely weak. LABS: WBC 4.7, hemoglobin 10.3 and the creatinine is 3.55. Hepatitis B core antibodies positive. ASSESSMENT: 1. Acute renal failure secondary to acute tubular necrosis secondary to prerenal factors with nonoliguric. 2. Chronic kidney disease, stage IIIB secondary to nephrosclerosis baseline creatinine 2 to 2.5. 3. Started on new hemodialysis thru right Permacath. 4. Persistent atrial fibrillation, not a candidate for anticoagulation. 5. Thrombocytopenia likely idiopathic thrombocytopenic purpura. 6. Fatty liver. 7. Chronic obstructive pulmonary disease. 8. History of nicotine dependence. 9. Primary degenerative joint disease multiple joints bilaterally. 10. Obstructive sleep apnea on CPAP. 11. Chronic gout. 12. Morbid obesity body mass index more than 30. 13. Gait dysfunction. 14. Chronic hypoxic respiratory failure on 2 L oxygen from underlying chronic obstructive pulmonary disease. 15. Chronic hypoxic respiratory failure. 16. Chronic medical debility using wheelchair. 17. FULL CODE. RECOMMENDATIONS AND DISCUSSION: In this 67 -year-old woman presented with multiple complex medical issues, we will monitor the patient closely. Continue the current medications. Continue hemodialysis. Otherwise, we will closely follow with discharge planning team for possible discharge. Dr. Eduardo has seen the patient. The patient is significantly better feeling. Shortness of breath also improving. The patient also had Lasix. Avoid nephrotoxic medications and continue to monitor. Prognosis guarded. Further recommendations to follow. MTDD
[2017-04-19] MEDS: SODIUM CHLORIDE 0.9% 1,000 ML IV SCH ×5 (08:35→23:49)
[2017-04-19] MEDS: ISOSORBIDE MONONITRATE ER 30 MG TAB.ER.24H PO SCH (08:36)
[2017-04-19] MEDS: METOPROLOL TARTRATE 50 MG TAB PO SCH ×2 (08:36→22:03)
[2017-04-19] MEDS: AMMONIUM LACTATE 12% CREAM 140 GM TUBE TOPICAL SCH ×3 (08:36→22:04)
[2017-04-19] MEDS: MENTHOL-ZINC OXIDE OINT 113 GM TUBE TOPICAL SCH ×2 (08:36→22:04)
[2017-04-19] MEDS: ALLOPURINOL 100 MG TAB PO SCH (08:36)
--- NOTE | 2017-04-19 11:29 | P.PN ---
Subjective Patient is seen in follow-up for acute kidney injury on chronic kidney disease. Patient has chronic kidney disease stage IIIB secondary to nephrosclerosis with baseline creatinine in the range of 2-2.5. Her creatinine peaked at 5.73 this admission. Patient was nauseous and had a poor appetite which are both improved today. Her urine output in the last 24 hours was 1850 mL. She is currently maintained on dopamine as well as IV fluids. Denies chest pain or shortness of breath. She underwent second treatment of hemodialysis on April 17. Creatinine is stable at 3.58 today. Vital signs are stable. General: The patient appeared well nourished and normally developed. HEENT: Head exam is unremarkable. Neck is without jugular venous distension. LUNGS: Lungs are clear to auscultation and percussion. Breath sounds decreased. HEART: Rate and Rhythm are regular. First and second heart sounds normal. No murmurs, rubs or gallops. ABDOMEN: Abdominal exam reveals normal bowel sounds. Non-tender and non- distended. No evidence of peritonitis. EXTREMITITES: 1+ edema. Wound dressing clean and dry with no obvious drainage. Chronic changes noted. Objective - Vital Signs Vital signs: Vital Signs Temp 96.6 F L 04/19/17 08:00 Pulse 76 04/19/17 08:00 Resp 18 04/19/17 08:00 BP 135/83 04/19/17 08:00 Pulse Ox 99 04/19/17 08:00 Intake & Output 04/18/17 04/19/17 04/19/17 18:59 06:59 18:59 Intake Total 0 880 Output Total 800 1050 Balance -800 -170 Weight 200.6 kg Intake: Intake, IV Titration 880 Amount Dextrose/Water 1 500ml. 320 bag @ 5 MCG/KG/MIN 40.31 mls/hr IV .[id number] [facility] with DOPamine DRIP 800 mg Rx#:[id number] Sodium Chloride 0.9% 1, 560 000 ml @ 70 mls/hr IV . [id number] [facility] Rx#:[id number] Oral 0 Output: Urine 800 1050 Other: Voiding Method Indwelling Catheter Indwelling Catheter Indwelling Catheter # Voids 1 - Labs CBC & Chem 7: 04/17/17 05:33 04/19/17 05:40 Labs: Abnormal Lab Results - Last 24 Hours (Table) 04/19/17 Range/Units 05:40 BUN 31 H (7-17) mg/dL Creatinine 3.58 H (0.52-1.04) mg/dL Assessment and Plan Plan: Assessment: #1. Acute kidney injury secondary to ischemic ATN secondary to hypotension. Currently hemodialysis dependent. Underwent second treatment of hemodialysis on April 17. #2. Chronic kidney disease stage IIIB secondary to nephrosclerosis with baseline creatinine in the range of 2-2.5. #3. Hypertension with chronic kidney disease. Blood pressures now on the lower side. #4. Morbid obesity. Plan: Hold dialysis today. Lasix 80 mg IV once today. Discontinue dopamine. Decreased rate of IV fluids to 50 mL an hour. Avoid nephrotoxic agents and hypotensive episodes. Maintain Arteaga catheter for strict I's and O's. Encouraged oral intake. Complaining of swelling around catheter insertion site. Vascular surgery to evaluate.
[2017-04-19] MEDS ORDERED: FUROSEMIDE 10 MG/ML 10 ML VIAL IV STA (11:30)
[2017-04-19] MEDS: CHOLECALCIFEROL 1,000 UNIT TAB PO SCH (16:50)
[2017-04-19] MEDS: ASPIRIN 81 MG CHEW PO SCH (16:50)
[2017-04-19] MEDS: FOLIC ACID 1 MG TAB PO SCH (16:50)
--- NOTE | 2017-04-19 16:55 | P.PN ---
Subjective Date of service 04/19/2017. Progress note being dictated for Dr. Coreas. Interval history: This is a 67-year-old female admitted with acute renal failure secondary to acute tubular necrosis, status post placement of permacath with initiation of hemodialysis. Total urine output Dopamine drip discontinued this morning, IV fluids decreased to 50 MLS with 1 dose of Lasix IV push administered as per nephrology. Patient complaining of swelling around permacath insertion site, reevaluation per Dr. Singh -vascular surgery pending. Improving Diet intake, denies nausea or vomiting. Telemetry atrial fibrillation with controlled ventricular rate. Denies chest pain, or palpitations Review of systems: HEENT: Denies headache or focal deficits. Denies any dizziness or lightheadedness. Respiratory: Denies any increased shortness of breath. Cardiac: Denies any chest pain, palpitations. GI: Denies any nausea, vomiting, or diarrhea. Denies any abdominal tenderness. : As mentioned earlier Psychiatry: Denies any anxiety or depression. Central Nervous System: Generalized weakness Active Medications Acetaminophen (Tylenol Tab) 650 mg PO Q4H PRN PRN Reason: Fever and/ or Mild Pain Albuterol Sulfate (Ventolin Nebulized) 2.5 mg INHALATION RT-Q4H PRN PRN Reason: Shortness Of Breath Albuterol/Ipratropium (Duoneb 0.5 Mg-3 Mg/3 Ml Soln) 3 ml INHALATION RT-QID [facility] Last Admin: 04/19/17 11:42 Dose: 3 ml Allopurinol (Zyloprim) 100 mg PO DAILY [facility] Last Admin: 04/19/17 08:36 Dose: 100 mg Aspirin (Aspirin) 81 mg PO DAILY@1700 [facility] Last Admin: 04/18/17 16:59 Dose: 81 mg Atorvastatin Calcium (Lipitor) 40 mg PO HS [facility] Last Admin: 04/18/17 22:07 Dose: 40 mg Bisacodyl (Dulcolax) 10 mg RECTAL DAILY PRN PRN Reason: Constipation Last Admin: 04/17/17 11:17 Dose: 10 mg Calamine/Phenol (Risamine Oint) 1 applic TOPICAL BID [facility] Last Admin: 04/19/17 08:36 Dose: 1 applic Carbamide Perox/Anhydrous Glycerin (Debrox Otic) 8 drops RIGHT EAR [facility] Last Admin: 06/21/17 22:07 Dose: 8 drops Cholecalciferol (Vitamin D3) 2,000 unit PO DAILY@1700 [facility] Last Admin: 04/18/17 16:59 Dose: 2,000 unit Folic Acid (Folic Acid) 1 mg PO DAILY@1700 [facility] Last Admin: 04/18/17 17:00 Dose: 1 mg Sodium Chloride (Saline 0.9%) 1,000 mls @ 50 mls/hr IV .Q20H [facility] Last Admin: 04/19/17 12:19 Dose: Not Given Isosorbide Mononitrate (Imdur) 30 mg PO DAILY [facility] Last Admin: 04/19/17 08:36 Dose: 30 mg Lactic Acid (Ammonium Lactate) 1 applic TOPICAL TID [facility] Last Admin: 04/19/17 08:36 Dose: 1 applic Lactulose (Cephulac) 10 gm PO DAILY PRN PRN Reason: Constipation Magnesium Hydroxide (Milk Of Magnesia) 2,400 mg PO DAILY PRN PRN Reason: Constipation Metoprolol Tartrate (Lopressor) 100 mg PO BID [facility] Last Admin: 04/19/17 08:36 Dose: 100 mg Naloxone HCl (Narcan) 0.2 mg IV Q2M PRN PRN Reason: Opioid Reversal Ondansetron HCl (Zofran) 4 mg IVP Q6HR PRN PRN Reason: Nausea And Vomiting Last Admin: 04/17/17 08:46 Dose: 4 mg Pantoprazole Sodium (Protonix) 40 mg PO AC-BRKFST [facility] Last Admin: 04/19/17 06:34 Dose: 40 mg Objective - Vital Signs Vital signs: Vital Signs Temp 96.0 F L 04/19/17 15:34 Pulse 71 04/19/17 15:34 Resp 18 04/19/17 15:34 BP 117/57 04/19/17 15:34 Pulse Ox 100 04/19/17 15:34 Intake & Output 04/18/17 04/19/17 04/19/17 18:59 06:59 18:59 Intake Total 0 880 Output Total 800 1050 650 Balance -800 -170 -650 Weight 200.6 kg Intake: Intake, IV Titration 880 Amount Dextrose/Water 1 500ml. 320 bag @ 5 MCG/KG/MIN 40.31 mls/hr IV [id number] [facility] with DOPamine DRIP 800 mg Rx#:[id number] Sodium Chloride 0.9% 1, 560 000 ml @ 50 mls/hr IV . Q20H [facility] Rx#:[id number] Oral 0 Output: Urine 800 1050 650 Other: Voiding Method Indwelling Catheter Indwelling Catheter Indwelling Catheter # Voids 1 - Exam PHYSICAL EXAM: VITAL SIGNS: As above GENERAL: sitting up in bed, no acute distress] HEENT: [Pupils equal conjunctiva normal.] NECK: [Supple, no JVD] RESPIRATORY EFFORT:[ Normal] LUNGS: [] Bilateral Diminished bases, scattered rhonchi, fine bibasilar crackles] CARDIOVASCULAR[ irregular, no murmurs rubs or gallops, positive edema] GI: [Abdomen soft, nontender, positive bowel sounds.] PSYCH: [Alert and oriented -3, mood and affect normal.] CENTRAL NERVOUS SYSTEM: Generalized diffuse weakness] - Labs CBC & Chem 7: 04/17/17 05:33 04/19/17 05:40 Labs: Abnormal Lab Results - Last 24 Hours (Table) 04/19/17 Range/Units 05:40 BUN 31 H (7-17) mg/dL Creatinine 3.58 H (0.52-1.04) mg/dL Microbiology - Last 24 Hours (Table) 04/18/17 23:30 Gram Stain - Preliminary Chest Wound Culture - Preliminary Assessment and Plan Plan: 1. [ Acute renal failure secondary to acute tubular necrosis related to prerenal factors, nonoliguric]. 2. [ CKD, stage IIIB, secondary to nephrosclerosis, baseline creatinine to 2.5]. 3. [ Status post permacath with initiation of hemodialysis]. 4. [ Persistent atrial fibrillation, not a candidate for anticoagulation]. 5. [ Thrombocytopenia likely idiopathic thrombocytopenic purpura]. 6. [ Fatty liver]. 7. [ COPD]. 8. History of nicotine dependence 9. Chronic medical debility ,Gait dysfunction-uses wheelchair, Primary degenerative joint disease, multiple joints bilaterally 10. Obstructive sleep apnea on CPAP 11. Chronic 12. Morbid obesity, BMI 73.6 13. Chronic hypoxic respiratory failure on 2 L nasal cannula secondary to underlying COPD Plan: Continue on current medication regime ,monitoring and symptomatic treatment. Hemodialysis as per nephrology. Re-evaluation of permacath pending per vascular surgery, Dr. Singh. Discharge planning in progress for return to [facility] rehab. tomorrow. Prognosis guarded. Further recommendations to follow. The impression and plan of care has been dictated as directed. : I performed a H&P examination of this patient and discussed the same with the dictator. I agree with the dictator's note. Any additional findings/opinions/ etc. will be noted.
[2017-04-19] MEDS: ATORVASTATIN 40 MG TAB PO SCH (22:03)
[2017-04-19] MEDS: CARBAMIDE PEROXIDE 6.5% DROPS 15 ML BTL RIGHT EAR SCH (22:04)
--- NOTE | 2017-04-19 23:18 | PN ---
DATE OF SERVICE: 04/19/2017 This 67 -year-old woman was admitted to the hospital with acute renal failure, on hemodialysis and the patient also had PT/OT evaluation. Seen and evaluated the patient along with nurse practitioner. Please refer to the nurse practitioner notes and impression documented as a scribe for further information. Prognosis guarded. Increase ambulation, possible plan to return to ECF once the patient is stable. LINDAD
[2017-04-20] MEDS: PANTOPRAZOLE 40 MG TABLET PO SCH (06:49)
[2017-04-20] MEDS: SODIUM CHLORIDE 0.9% 1,000 ML IV SCH ×3 (07:40→09:34)
[2017-04-20] MEDS: IPRATROPIUM-ALBUTEROL 3 ML NEB INHALATION SCH ×3 (07:55→16:06)
[2017-04-20 08:39] LABS: Calcium 8.7 mg/dL (8.4-10.2); Potassium 4.1 mmol/L (3.5-5.1)
[2017-04-20] MEDS: ISOSORBIDE MONONITRATE ER 30 MG TAB.ER.24H PO SCH (09:07)
[2017-04-20] MEDS: ALLOPURINOL 100 MG TAB PO SCH (09:07)
[2017-04-20] MEDS: METOPROLOL TARTRATE 50 MG TAB PO SCH (09:07)
[2017-04-20] MEDS: MENTHOL-ZINC OXIDE OINT 113 GM TUBE TOPICAL SCH (09:07)
[2017-04-20] MEDS: AMMONIUM LACTATE 12% CREAM 140 GM TUBE TOPICAL SCH ×2 (09:08→16:27)
[2017-04-20 09:25] VITALS: BMI 57.1
--- NOTE | 2017-04-20 10:36 | P.PN ---
Subjective Patient is seen in follow-up for acute kidney injury on chronic kidney disease. Patient has chronic kidney disease stage IIIB secondary to nephrosclerosis with baseline creatinine in the range of 2-2.5. Her creatinine peaked at 5.73 this admission. Patient was nauseous and had a poor appetite which are both improved today. Her urine output in the last 24 hours was 1550 mL. dopamine was discontinued yesterday. Denies chest pain or shortness of breath. She underwent second treatment of hemodialysis on April 17. Creatinine is stable at 3.50 today. Vital signs are stable. General: The patient appeared well nourished and normally developed. HEENT: Head exam is unremarkable. Neck is without jugular venous distension. LUNGS: Lungs are clear to auscultation and percussion. Breath sounds decreased. HEART: Rate and Rhythm are regular. First and second heart sounds normal. No murmurs, rubs or gallops. ABDOMEN: Abdominal exam reveals normal bowel sounds. Non-tender and non- distended. No evidence of peritonitis. EXTREMITITES: Trace edema. Wound dressing clean and dry with no obvious drainage. Chronic changes noted. Objective - Vital Signs Vital signs: Vital Signs Temp 97.1 F L 04/20/17 09:07 Pulse 70 04/20/17 09:07 Resp 18 04/20/17 09:07 BP 114/54 04/20/17 09:07 Pulse Ox 100 04/20/17 09:07 Intake & Output 04/19/17 04/20/17 04/20/17 18:59 06:59 18:59 Intake Total 400 Output Total 650 900 Balance -650 -500 Weight 155.7 kg 155.7 kg Intake: Intake, IV Titration 400 Amount Sodium Chloride 0.9% 1, 400 000 ml @ 50 mls/hr IV . Q20H [facility] Rx#:[id number] Output: Urine 650 900 Other: Voiding Method Indwelling Catheter Indwelling Catheter Indwelling Catheter # Voids 1 - Labs CBC & Chem 7: 04/17/17 05:33 04/20/17 06:30 Labs: Abnormal Lab Results - Last 24 Hours (Table) 04/20/17 Range/Units 06:30 BUN 32 H (7-17) mg/dL Creatinine 3.50 H (0.52-1.04) mg/dL Glucose 52 L (74-99) mg/dL Microbiology - Last 24 Hours (Table) 04/18/17 23:30 Gram Stain - Preliminary Chest Wound Culture - Preliminary Gram Neg Bacilli Assessment and Plan Plan: Assessment: #1. Acute kidney injury secondary to ischemic ATN secondary to hypotension. Status post 2 treatments of hemodialysis this admission - underwent second treatment of hemodialysis on April 17. Renal function stable with creatinine at 3.5 today. #2. Chronic kidney disease stage IIIB secondary to nephrosclerosis with baseline creatinine in the range of 2-2.5. #3. Hypertension with chronic kidney disease. Blood pressures now on the lower side. #4. Morbid obesity. Plan: No further need for hemodialysis at this time. Stable to be discharged to [facility] on Lasix 40 mg once daily with repeat basic metabolic panel to be checked Sunday morning. She will need to follow-up as an outpatient in the next 7-10 days. Arteaga catheter may be discontinued but monitor for urinary retention.
--- NOTE | 2017-04-20 14:29 | DS ---
DATE OF ADMISSION: 04/12/2017 DATE OF DISCHARGE: 04/20/2017 FINAL DIAGNOSES: 1. Acute renal failure secondary to acute tubular necrosis secondary to prerenal factors, nonoliguric. 2. Chronic kidney stage 3B secondary to nephrosclerosis. Baseline creatinine 2.5. 3. Status post PermCath and initiation of hemodialysis, new onset, during the current admission 4. Persistent atrial fibrillation, not a candidate for anticoagulation. 5. Thrombocytopenia, likely immune thrombocytopenic purpura. 6. Fatty liver history. 7. History of chronic obstructive pulmonary disease. 8. History of nicotine dependence. 9. Super morbid obesity. 10. Gait dysfunction. 11. General medical debility. 12. Primary degenerative joint disease of multiple joints bilaterally. 13. History of sleep apnea on continuous positive airway pressure. 14. Morbid obesity. 15. Chronic hypoxic respiratory failure on 2L nasal cannula secondary to chronic obstructive pulmonary disease underlying. 16. Cellulitis. 17. FULL CODE. DISCHARGE DISPOSITION: The patient will be discharged in stable condition with guarded prognosis. The patient will be transferred to [facility] for further rehab. Total time taken is 35 minutes. HISTORY OF PRESENT ILLNESS: This 67-year-old woman with a past medical history of multiple medical problems was admitted with acute on chronic renal failure. Creatinine was elevated at 5.59. Hemodialysis initiated by Dr. Bobby, who saw the patient, and the patient was seen by nephrology, Dr. Boone, also. Patient improved significantly, feeling much better. PT, OT evaluated the patient, recommended rehab. On exam, vital are stable. CARDIOVASCULAR: S1, S2 muffled. ABDOMEN: Soft. NERVOUS SYSTEM: No focal deficits. DISCHARGE ADVICE AND MEDICATIONS: 1. Diet is renal. 2. Activity as tolerated. 3. CBC, BMP in 2 to 3 days. 4. Continue with hemodialysis per Nephrology. 5. Otherwise, antibiotics per Infectious Disease. 6. Other medications are as follows: a. Tylenol 650 q.4 p.r.n. b. Ventolin 2.5 q.i.d. and p.r.n. c. Zyloprim 200 mg p.o. daily. d. Lac-Hydrin 1 application topically daily. e. Aspirin 81 mg p.o. daily. f. Lipitor 40 mg q.h.s. h. Vitamin D3 2000 daily. i. Ensure Clear 1 can p.o. t.i.d. j. Ancef 320 mg p.o. daily. k. Folic acid 1 mg p.o. daily. l. Lasix 40 mg p.o. daily. m. Albuterol/Atrovent updrafts q.i.d. and p.r.n. n. Imdur ER 30 mg p.o. daily. o. Lactulose 10 g p.o. daily p.r.n. p. Calmoseptine for local application. q. Lopressor 100 mg p.o. b.i.d. r. Zofran 4 mg q.8 p.r.n. s. Protonix 20 mg p.o. daily. Once again, the patient will be discharged in stable condition with guarded prognosis. MTDD
[2017-04-20 15:35] LABS: Anisocytosis Moderate; Basophils % (A) 0 %; CH 30.7; CHCM 29.1; Eosinophils # (A) 0.1 k/uL (0-0.7); Eosinophils % (A) 1 %; HCT 30.1 % (34.0-46.0); HDW 3.16; Hypochromasia Marked; Luc # (Auto) 0.09; Luc % (Auto) 1; Lymphocytes # (A) 0.5 k/uL (1.0-4.8); Lymphocytes % (A) 8 %; MCH 31.8 pg (25.0-35.0); MCHC 29.9 g/dL (31.0-37.0); MCV 106.4 fL (80.0-100.0); Macrocytosis Marked; Mean Platelet Volume 9.4; Monocytes # (A) 0.5 k/uL (0-1.0); Monocytes % (A) 8 %; Neutrophils # (A) 5.3 k/uL (1.3-7.7); Neutrophils % (A) 81 %; RBC 2.83 m/uL (3.80-5.40); RDW 20.8 % (11.5-15.5); WBC 6.5 k/uL (3.8-10.6); WBC (Perox) 6.73
[2017-04-20 16:22] VITALS: BP 122/67; PULSE 68; TEMP 97.2
[2017-04-20] MEDS: CHOLECALCIFEROL 1,000 UNIT TAB PO SCH (16:26)
[2017-04-20] MEDS: ASPIRIN 81 MG CHEW PO SCH (16:26)
[2017-04-20] MEDS: FOLIC ACID 1 MG TAB PO SCH (16:26)
--- NOTE | 2017-04-20 17:08 | CONS ---
DATE OF CONSULTATION: 04/20/2017 REASON FOR CONSULTATION: ( ) site infection. HISTORY OF PRESENT ILLNESS: The patient is a 67 -year-old female who presented to the [facility] ER on 04/12/2017 more than a week ago with symptoms of for evaluation of renal insufficiency sent in from the long term, when she was noticed to have an elevated BUN and creatinine ( ) by nephrology services. Dialysis was recommended. Patient did have a right IJ Perm-A-Cath placed, ultrasound-guided by Dr. Bobby on 04/16/2017 and the patient getting dialysis thru the same. The patient remains to be afebrile throughout her hospital stay. Apparently the nurses on the twenty-first at night noted there was some swelling on the chest wall or the neck area which is slightly distal to the insertion of the Perm-A-Cath site and did obtain cultures from it which are now showing gram-negative bacilli and so I was asked to see the patient for antibiotic recommendation and clearance for discharge so the patient can arrange to go back to the long term already. Patient as I said remaining to be afebrile. The patient said that initially after placement of the [id number]-I-[id number] she was having some pain in that area, but that has been improving. The patient did have has some bruises on that area, which is more laterally to it. Culture has been obtained. Slight skin breakdown is there. The patient denies any drainage from it. Patient denies having any fever, chills. Denies significant chest pain, shortness of breath, or cough. No abdominal pain or any diarrhea. REVIEW OF SYSTEMS: CONSTITUTIONAL: Positive for weakness. No fever has been recorded during this hospital stay. EYES: No complaint. ENT: No complaint. RESPIRATORY: No complaint. CARDIOVASCULAR: No complaint. GENITOURINARY: No complaint. GASTROINTESTINAL: No complaint. INTEGUMENTARY: As mentioned earlier. ENDOCRINE: No complaint. NEUROLOGICAL: No complaint. PAST MEDICAL HISTORY: Past medical history significant for atrial fibrillation, hypertension, osteoarthritis, pneumonia, sleep apnea, heart failure and cellulitis, urinary tract infection, morbid obesity. Past surgical history: History of , bilateral debridement of big toe nails, colonoscopy, left ( ) benign tumor removed. SOCIAL HISTORY: Remote history of smoking. No drinking or drug use. FAMILY HISTORY: Mother had colon cancer, age 54. Father with NH, age of 60. ALLERGIES: No known allergies. Medications currently include the patient is on: 1. Tylenol. 2. Ventolin. 3. DuoNeb. 4. Zyloprim. 5. Aspirin. 6. Lipitor. 7. Dulcolax. 8. Calamine lotion. 9. Dobrox teardrops. 10. Vitamin D3. 11. Folic acid. 12. Lasix. 13. Imdur. 14. Lactulose. On examination, blood pressure 109/50 with a pulse of 71. ( ) 100% on 3 L nasal cannula. General description is an elderly female lying in bed in no distress. No tachypnea or accessory muscles of respiration use. HEENT EXAMINATION: Pallor. No scleral icterus. Oral mucosa membranes moist. NECK: The Perm-A-Cath site insertion site looks clean. There is a bruise around the area with small skin breakdown distal to the insertion of the Ochs-N-Pcrhjxwd with no induration, fluctuation or any drainage was noticed. LUNGS: Unlabored breathing. Clear to auscultation anteriorly. HEART: S1, S2 regular rate and rhythm. ABDOMEN: Soft. No tenderness. EXTREMITIES: No edema of feet. LABS: No CBC has been done today. BUN of 32, creatinine 3.50. ( ) antibody was positive. ( ) antigen was negative. Cultures obtained from the Perm-A-Cath site is showing gram negative bacilli. DIAGNOSTIC IMPRESSION AND PLAN: Patient ( ) had Perm-A-Cath slightly ( ) slightly distended with actual Perm-A-Cath is going into the neck area. I did not see any evidence of any swelling, redness or cellulitis. She did have some bruise, more peripherally. Clinically doubt significant infection. However, we have taken cultures from more likely skin colonization rather than actual cellulitis. PLAN: 1. Blood cultures ( ) to be on the safe side and CBC should be obtained. 2. Patient may be continued on a short course of Cipro; however, I would advised to be keep a close eye on this area. If the area becomes more swollen, or red or the patient develop any fevers, to call us as soon as possible. 3. Plan of care discussed with the attending admitting team.
[2017-04-21] MEDS ORDERED: CIPROFLOXACIN HCL 500 MG TAB PO SCH (09:00)
[2017-04-21] MEDS ORDERED: FUROSEMIDE 40 MG TAB PO SCH (09:00)
== END 2017-04-20 17:03 | DRG 683 ==
LOC: EC 17:50 → 5MS5E 19:00 → 6SEL 04-13 20:09
PROVIDERS: ADMIT Hospitalist; ATTEND Hospitalist
PROC: 0T9B70Z Drainage of Bladder with Drainage Device, Via Natural or Artificial Opening (ICD-10-PCS; 2017-04-13)
PROC: 5A1D60Z (ICD-10-PCS; principal; 2017-04-16 10:48)
PROC: 02HV33Z Insertion of Infusion Device into Superior Vena Cava, Percutaneous Approach (ICD-10-PCS; 2017-04-16 10:48)
DX: N17.0 Acute kidney failure with tubular necrosis (principal); I48.1 Persistent atrial fibrillation; D69.3 Immune thrombocytopenic purpura; J96.11 Chronic respiratory failure with hypoxia; I95.9 Hypotension, unspecified; I42.9 Cardiomyopathy, unspecified; I13.0 Hypertensive heart and chronic kidney disease with heart failure and stage 1 through stage 4 chronic kidney disease, or unspecified chronic kidney disease; I50.20 Unspecified systolic (congestive) heart failure; I27.2 Other secondary pulmonary hypertension; Z68.45 Body mass index [BMI] 70 or greater, adult; N18.3 Chronic kidney disease, stage 3 (moderate); K76.0 Fatty (change of) liver, not elsewhere classified; J44.9 Chronic obstructive pulmonary disease, unspecified; M19.91 Primary osteoarthritis, unspecified site; E66.01 Morbid (severe) obesity due to excess calories; G47.33 Obstructive sleep apnea (adult) (pediatric); E78.5 Hyperlipidemia, unspecified; M1A.9XX0 Chronic gout, unspecified, without tophus (tophi); R26.9 Unspecified abnormalities of gait and mobility; K59.00 Constipation, unspecified; D64.9 Anemia, unspecified; R11.2 Nausea with vomiting, unspecified; Z87.19 Personal history of other diseases of the digestive system; Z99.2 Dependence on renal dialysis; Z82.49 Family history of ischemic heart disease and other diseases of the circulatory system; Z79.899 Other long term (current) drug therapy; Z79.82 Long term (current) use of aspirin; Z80.0 Family history of malignant neoplasm of digestive organs; Z87.891 Personal history of nicotine dependence; Z87.440 Personal history of urinary (tract) infections; Z87.01 Personal history of pneumonia (recurrent); Z86.19 Personal history of other infectious and parasitic diseases; Z99.81 Dependence on supplemental oxygen
CPT/HCPCS: 36415; 36556; 71010; 76770; 76937; 77001; 80048; 80053; 81001; 83735; 84439; 84443; 84481; 85025; 85610; 85730; 86704; 86706; 87040; 87070; 87077; 87186; 87205; 87340; 90935; 93005; 94640; 94660; 94760; 96374; 99285

== ENCOUNTER 2017-06-28 07:04 | Day surgery (SDC) | payer MEDICARE, OTHER ==
[2017-06-25 16:49] VITALS: BMI 62.6
[~2017-06-28 07:04] MED LIST changes: -DEXAMETHASONE SOD PHOSPHATE 10 MG/ML 1 ML VIAL IV ONE; -HYDROmorphone 1 MG/ML 1 ML SYRINGE IVP PRN; -MIDAZOLAM 2 MG/2 ML VIAL IV PRN; -ONDANSETRON 4 MG/2 ML VIAL IVP ONE; -Pre Op ABX Message 1 EACH MISC MISCELLANE ONE; -SCOPOLAMINE 1.5MG/72HR PATCH TRANSDERM ONE
[2017-06-28 07:46] VITALS: TEMP 97.1
[2017-06-28] MEDS ORDERED: LIDOCAINE 1% INJ 10MG/ML (20 ML MDV) ONE (08:40)
[2017-06-28] MEDS ORDERED: PROPOFOL 10 MG/ML 20 ML VIAL IV ONE (08:40)
--- NOTE | 2017-06-28 09:20 | P.OP ---
Date of Procedure: 06/28/17 Preoperative Diagnosis: History of gases reflux disease and weight loss Postoperative Diagnosis: sever Erosive gastritis Patient has pandiverticulosis Procedure(s) Performed: EGD with cold biopsy forceps for biopsies. Colonoscopy Implants: Anesthesia: JAMSHID Surgeon: Ariella Nails Pathology: other Indications for Procedure: Operative Findings: Description of Procedure: patient's 67-year-old female who had excessive weight loss and has had a colonoscopy 2 years ago he she presents for EGD and colonoscopy because of her history of gases which reflux disease and excessive weight loss. Informed consent was obtained and the patient taken to the procedure room and placed in the family discuss position and given IV sedation after appropriate timeout. After this plate and were lubricated EGD scope was passed all the way down the esophagus to the symmetrical stomach traversing it into the duodenum which was 40 documented and biopsied. Scope was then withdrawn and antrum was biopsied. Scope was then retroflexed and the hill grade 2 hiatal hernia. On the fundus the patient has severe obstructive gastritis which was not actively bleeding and was biopsied. Scope was withdrawn to the GE junction at 38 cm from the incisors she's also biopsied. Scope was then completely withdrawn completing the EGD. The patient's position was then turned to the colonoscopy. Digital examination was not performed due to the patient's habitus. We will await: The scope was passed all the way through the anus and traversing easily into the ascending colon. Descending colon and very poor prep and had completely obscured the cecum in spite of thoroughly washing and cecum was not properly visible however the upper surface of the IVC valve was identified and further documented. The base of the cecum was not clearly visualized. The scope with abdominal mucosa was inspected as stated the right colon ascending colon had poor prep with very difficult visualizing obvious mass tumor in the right colon. Mucosa was inspected for the remaining part of the colon revealing dudley diverticulosis extending into the transverse colon. There was no active bleeding or mass or infection in them. Scope was then withdrawn into the left side of the colon and mucosa inspected and looked normal. Scope was withdrawn and the rectum was retroflexed revealing normal looking hemorrhoids. Scope was instructed straightened: Desufflated and scope removed.
[2017-06-28 09:24] VITALS: RESP 16
[2017-06-28 09:53] VITALS: BP 120/69; PULSE 80
== END 2017-06-28 10:20 | disposition home or self-care (01) ==
LOC: ORWHC2ENDO 07:04
PROVIDERS: ATTEND Surgery
DX: K29.50 Unspecified chronic gastritis without bleeding (principal); K57.30 Diverticulosis of large intestine without perforation or abscess without bleeding; K44.9 Diaphragmatic hernia without obstruction or gangrene; R63.4 Abnormal weight loss; E78.5 Hyperlipidemia, unspecified; I48.91 Unspecified atrial fibrillation; I13.0 Hypertensive heart and chronic kidney disease with heart failure and stage 1 through stage 4 chronic kidney disease, or unspecified chronic kidney disease; N18.9 Chronic kidney disease, unspecified; I50.9 Heart failure, unspecified; G47.33 Obstructive sleep apnea (adult) (pediatric); E66.01 Morbid (severe) obesity due to excess calories; Z79.82 Long term (current) use of aspirin; Z79.899 Other long term (current) drug therapy
CPT/HCPCS: 88305; 88342; 45378; 43239; J2001; J2704

== ENCOUNTER 2017-08-23 15:10 | Observation (INO) | payer MEDICARE, OTHER ==
--- NOTE | 2017-08-23 15:22 | ED ---
GI Bleed HPI - General Chief complaint: GI Bleed Stated complaint: GI Bleed Time Seen by Provider: 08/23/17 15:10 Source: patient, RN/MD, RN notes reviewed Mode of arrival: EMS Limitations: no limitations - History of Present Illness Initial comments: This is a 67-year-old jail patient was brought in for evaluation for possible GI bleed she apparently was found have a hemoglobin of 9 yesterday she had nausea vomiting with dark brown material also brown loose stool from below both were darker than usual but no definite black or red material noted patient does take iron pills. She does have a history however the prior GI bleed. She states she has some epigastric discomfort no shortness of breath chest pain fevers chills or sweats she is nonambulatory. - Related Data Home Medications Medication Instructions Recorded Confirmed Folic Acid 1 mg PO DAILY@1700 12/19/16 08/23/17 Ipratropium-Albuterol Nebulize 3 ml INHALATION RT-QID 12/19/16 08/23/17 [Duoneb 0.5 mg-3 mg/3 ml Soln] Acetaminophen Tab [Tylenol] 650 mg PO Q4H PRN 12/25/16 08/23/17 Cholecalciferol [Vitamin D3] 2,000 unit PO DAILY@1700 12/30/16 08/23/17 Bisacodyl [Dulcolax] 10 mg RECTAL DAILY PRN 02/23/17 08/23/17 Ferrous Sulfate [Iron (65 MG 325 mg PO DAILY@1700 02/23/17 08/23/17 Elemental)] Menthol/Zinc Oxide [Calmoseptine 1 applic TOPICAL BID 04/12/17 08/23/17 Ointment] Ondansetron HCl [Zofran] 4 mg PO Q8H PRN 04/12/17 08/23/17 Pantoprazole Sodium [Protonix] 20 mg PO DAILY 04/12/17 08/23/17 Ammonium Lactate Cream [Lac-Hydrin 1 applic TOPICAL BID 06/25/17 08/23/17 12% Cream] Atorvastatin [Lipitor] 40 mg PO HS 06/25/17 08/23/17 Magnesium Hydroxide [Milk of 400 mg PO DAILY PRN 06/25/17 08/23/17 Magnesia] Potassium Chloride [K-Tab ER] 20 meq PO DAILY@1700 06/25/17 08/23/17 Calcium Acetate [Phoslo] 667 mg PO DAILY@1700 08/23/17 08/23/17 Epoetin Juan Jose [Procrit] 20,000 unit IM SA 08/23/17 08/23/17 Furosemide [Lasix] 20 mg PO DAILY 08/23/17 08/23/17 Linaclotide [Linzess] 145 mcg PO DAILY 08/23/17 08/23/17 Omeprazole 40 mg PO DAILY PRN 08/23/17 08/23/17 Polyethylene Glycol 3350 [Miralax] 17 gm PO Q12H PRN 08/23/17 08/23/17 Previous Rx's Medication Instructions Recorded Allopurinol [Zyloprim] 200 mg PO DAILY tab 01/22/17 Aspirin 81 mg PO DAILY@1700 #0 02/24/17 Albuterol Nebulized [Ventolin 2.5 mg INHALATION RT-Q4H PRN neb 04/20/17 Nebulized] Ensure Clear 1 can PO TID #0 04/20/17 Isosorbide Mononitrate ER [Imdur] 30 mg PO DAILY tab 04/20/17 Metoprolol Tartrate [Lopressor] 100 mg PO BID tab 04/20/17 Allergies Allergy/AdvReac Type Severity Reaction Status Date / Time Iodinated Contrast- Oral and AdvReac SEE COMMENT Verified 08/23/17 16:08 IV Dye sodium phosphate AdvReac SEE COMMENT Verified 08/23/17 16:08 [From Fleet Enema] NEPHROTOXINS Allergy SEE COMMENT Uncoded 08/23/17 16:08 Review of Systems ROS Statement: Those systems with pertinent positive or pertinent negative responses have been documented in the HPI. ROS Other: All systems not noted in ROS Statement are negative. Past Medical History Past Medical History: Atrial Fibrillation, Asthma, Heart Failure, Hyperlipidemia , Hypertension, Osteoarthritis (OA), Pneumonia, Renal Disease, Sleep Apnea/CPAP/ BIPAP Additional Past Medical History / Comment(s): BRUNILDA with CPAP, gout bilateral legs /feet, arthritis multiple joints, sinus problems, past left lower leg cellulitis and wound, UTIs. Morbid obesity, 02 2 LITERS N/C, gastritis,"in my 20 's i had ulcers", anemia "has had blood transfusion, and iron infusions" History of Any Multi-Drug Resistant Organisms: None Reported Past Surgical History: Section, Ear Surgery Additional Past Surgical History / Comment(s): Debridement bilateral pedal toenails, colonoscopy-normal, L ear benign tumor removed, x 2. pt currently resides at [facility] Past Anesthesia/Blood Transfusion Reactions: No Reported Reaction Additional Past Anesthesia/Blood Transfusion Reaction / Comment(s): blood transfusions- no reaction Past Psychological History: No Psychological Hx Reported Smoking Status: Former smoker Past Alcohol Use History: Rare Past Drug Use History: None Reported - Past Family History Mother Family Medical History: Cancer Additional Family Medical History / Comment(s): Mother of colon cancer at the age of 54 yrs. Father Family Medical History: Myocardial Infarction (OH) Additional Family Medical History / Comment(s): Father of a massive [place] at the age of 60 yrs. General Exam - General Exam Comments Initial Comments: This is a well-developed well-nourished awake alert oriented 3 female Limitations: no limitations General appearance: alert, in no apparent distress Head exam: Present: atraumatic, normocephalic, normal inspection Eye exam: Present: normal appearance, PERRL, EOMI. Absent: scleral icterus, conjunctival injection, periorbital swelling ENT exam: Present: normal exam, mucous membranes moist Neck exam: Present: normal inspection. Absent: tenderness, meningismus, lymphadenopathy Respiratory exam: Present: normal lung sounds bilaterally. Absent: respiratory distress, wheezes, rales, rhonchi, stridor Cardiovascular Exam: Present: normal rhythm, tachycardia, normal heart sounds. Absent: systolic murmur, diastolic murmur, rubs, gallop, clicks GI/Abdominal exam: Present: soft, tenderness (Mild epigastric tenderness palpation no guarding no rebound), normal bowel sounds, other (Obese abdomen). Absent: distended, guarding, rebound, rigid Extremities exam: Present: normal inspection, full ROM, normal capillary refill. Absent: tenderness, pedal edema, joint swelling, calf tenderness Back exam: Present: normal inspection Neurological exam: Present: alert, oriented X3, CN II-XII intact Psychiatric exam: Present: normal affect, normal mood Skin exam: Present: warm, dry, intact, normal color. Absent: rash Course Vital Signs 08/23/17 15:11 Temperature 96.9 F L Pulse Rate 126 H Respiratory 18 Rate Blood Pressure 140/66 O2 Sat by Pulse 95 Oximetry Medical Decision Making - Medical Decision Making I did discuss the findings with the patient family member that was present. The patient did have heme positive stools and is unclear whether this is from GI bleed or from the patient's oral iron that she takes. Patient will be admitted for observation for serial CBCs and consultation by GI. I did discuss case with Dr. Stephens. - Lab Data Result diagrams: 08/23/17 16:23 08/23/17 16:23 Lab Results 08/23/17 08/23/17 08/23/17 Range/Units 16:23 16:23 16:23 WBC 14.7 H (3.8-10.6) k/uL RBC 3.56 L (3.80-5.40) m/uL Hgb 11.1 L (11.4-16.0) gm/dL Hct 38.1 (34.0-46.0) % MCV 107.2 H (80.0-100.0) fL MCH 31.1 (25.0-35.0) pg MCHC 29.0 L (31.0-37.0) g/dL RDW 21.2 H (11.5-15.5) % Plt Count 209 (150-450) k/uL APTT (22.0-30.0) sec Sodium 144 (137-145) mmol/L Potassium 5.4 H (3.5-5.1) mmol/L Chloride 110 H (98-107) mmol/L Carbon Dioxide 21 L (22-30) mmol/L Anion Gap 13 mmol/L BUN 56 H (7-17) mg/dL Creatinine 2.46 H (0.52-1.04) mg/dL Est GFR (MDRD) Af Amer 24 (>60 ml/min/1.73 sqM) Est GFR (MDRD) Non-Af 20 (>60 ml/min/1.73 sqM) Glucose 109 H (74-99) mg/dL Calcium 10.0 (8.4-10.2) mg/dL Magnesium 2.1 (1.6-2.3) mg/dL Total Bilirubin 1.1 (0.2-1.3) mg/dL AST 26 (14-36) U/L ALT 24 (9-52) U/L Alkaline Phosphatase 132 H (38-126) U/L Total Protein 7.4 (6.3-8.2) g/dL Albumin 3.6 (3.5-5.0) g/dL Stool Occult Blood Positive H (Negative) 08/23/17 Range/Units 16:23 WBC (3.8-10.6) k/uL RBC (3.80-5.40) m/uL Hgb (11.4-16.0) gm/dL Hct (34.0-46.0) % MCV (80.0-100.0) fL MCH (25.0-35.0) pg MCHC (31.0-37.0) g/dL RDW (11.5-15.5) % Plt Count (150-450) k/uL APTT 22.9 (22.0-30.0) sec Sodium (137-145) mmol/L Potassium (3.5-5.1) mmol/L Chloride (98-107) mmol/L Carbon Dioxide (22-30) mmol/L Anion Gap mmol/L BUN (7-17) mg/dL Creatinine (0.52-1.04) mg/dL Est GFR (MDRD) Af Amer (>60 ml/min/1.73 sqM) Est GFR (MDRD) Non-Af (>60 ml/min/1.73 sqM) Glucose (74-99) mg/dL Calcium (8.4-10.2) mg/dL Magnesium (1.6-2.3) mg/dL Total Bilirubin (0.2-1.3) mg/dL AST (14-36) U/L ALT (9-52) U/L Alkaline Phosphatase (38-126) U/L Total Protein (6.3-8.2) g/dL Albumin (3.5-5.0) g/dL Stool Occult Blood (Negative) - EKG Data -: EKG Interpreted by Me (Atrial fibrillation the rate is well 5 QRS 96 QT since QTC of 366/43 nonspe) - Radiology Data Radiology results: report reviewed (I did review the imaging and reports no acute findings.), image reviewed Disposition Clinical Impression: GI bleed, Anemia Disposition: ADMITTED IP TO THIS [facility] Condition: Stable Referrals: Jake Rodriguez MD [Primary Care Provider] - 1-2 days
--- NOTE | 2017-08-23 16:18 | XR ---
EXAMINATION TYPE: XR KUB portable DATE OF EXAM: 08/23/2017 4:13 PM CLINICAL HISTORY: Abdominal pain and diarrhea. TECHNIQUE: 3 AP portable supine views of the abdomen are obtained. COMPARISON: None. FINDINGS: Gamma suboptimal secondary to portable technique and patient's large body habitus. Gas is s een in nondistended stomach gas is seen in non-distended small bowel loops in the left abdomen. There is some paucity of bowel gas in the right abdomen. A few pelvic phleboliths are seen. There is multi level spurring in the mid to lower thoracic spine. There is moderate joint space loss in both hips. IMPRESSION: Overall nonspecific but favor nonobstructive bowel gas pattern.
[2017-08-23 16:35] LABS: Anisocytosis Moderate; Basophils % (A) 0 %; CH 31.3; CHCM 29.5; Eosinophils # (A) 0.1 k/uL (0-0.7); Eosinophils % (A) 1 %; HCT 38.1 % (34.0-46.0); HDW 2.95; HGB 11.1 gm/dL (11.4-16.0); Hypochromasia Marked; Luc # (Auto) 0.04; Luc % (Auto) 0; Lymphocytes # (A) 0.6 k/uL (1.0-4.8); Lymphocytes % (A) 4 %; MCH 31.1 pg (25.0-35.0); MCV 107.2 fL (80.0-100.0); Macrocytosis Marked; Mean Platelet Volume 8.1; Monocytes # (A) 0.4 k/uL (0-1.0); Monocytes % (A) 3 %; Neutrophils # (A) 13.5 k/uL (1.3-7.7); Neutrophils % (A) 92 %; RBC 3.56 m/uL (3.80-5.40); RDW 21.2 % (11.5-15.5); WBC 14.7 k/uL (3.8-10.6); WBC (Perox) 14.95
[2017-08-23 16:43] LABS: Magnesium 2.1 mg/dL (1.6-2.3); Potassium 5.4 mmol/L (3.5-5.1); Total Bilirubin 1.1 mg/dL (0.2-1.3); Total Protein 7.4 g/dL (6.3-8.2)
[2017-08-23] MEDS ORDERED: NALOXONE 0.4 MG/ML 1 ML VIAL IV PRN (16:49)
[2017-08-23] MEDS ORDERED: MAGNESIUM HYDROXIDE 2,400 MG/10 ML CUP PO PRN (16:53)
[2017-08-23] MEDS ORDERED: ACETAMINOPHEN TAB 325 MG TAB PO PRN (16:53)
[2017-08-23] MEDS ORDERED: BISACODYL 10 MG SUPP RECTAL PRN (16:53)
[2017-08-23] MEDS ORDERED: ONDANSETRON 4 MG TAB PO PRN (16:53)
[2017-08-23] MEDS ORDERED: POLYETHYLENE GLYCOL 3350 17 GM POWD.PACK PO PRN (16:53)
[2017-08-23 16:56] LABS: Manual Review Performed; Polychromasia Present; Target Cells Present
[2017-08-23] MEDS ORDERED: FERROUS SULFATE 325 MG TAB PO SCH (17:00)
[2017-08-23] MEDS ORDERED: SODIUM CHLORIDE 0.9% 1,000 ML IV SCH (17:00)
[2017-08-23 17:04] LABS: Creatine Kinase 28 U/L (30-135)
[2017-08-23 17:17] LABS: Creatine Kinase MB 0.5 ng/mL (0.0-2.4); Troponin I <0.012 ng/mL (0.000-0.034)
[2017-08-23] MEDS: CALCIUM ACETATE 667 MG CAP PO SCH (18:27)
[2017-08-23] MEDS: POTASSIUM CHLORIDE ER 20 MEQ TAB.ER PO SCH (18:27)
[2017-08-23] MEDS: CHOLECALCIFEROL 1,000 UNIT TAB PO SCH (18:27)
[2017-08-23] MEDS: FOLIC ACID 1 MG TAB PO SCH (18:28)
[2017-08-23 18:51] VITALS: BMI 55.1
[2017-08-23] MEDS ORDERED: ALBUTEROL NEBULIZED 2.5 MG/3 ML INHALATION PRN (19:25)
[2017-08-23] MEDS: IPRATROPIUM-ALBUTEROL 3 ML NEB INHALATION SCH (20:08)
[2017-08-23] MEDS: MENTHOL-ZINC OXIDE OINT 113 GM TUBE TOPICAL SCH (20:41)
[2017-08-23] MEDS: METOPROLOL TARTRATE 50 MG TAB PO SCH (20:41)
[2017-08-23] MEDS: AMMONIUM LACTATE 12% CREAM 140 GM TUBE TOPICAL SCH (20:41)
[2017-08-23] MEDS ORDERED: PANTOPRAZOLE 40 MG/10 ML VIAL IV SCH (21:00)
[2017-08-23] MEDS ORDERED: ATORVASTATIN 40 MG TAB PO SCH (21:00)
[2017-08-23] MEDS ORDERED: NON-FORMULARY DRUG (Ensure Clear 1 CAN) PO SCH (22:00)
[2017-08-23 22:48] LABS: Anisocytosis Slight; CH 32.2; CHCM 30.4; HCT 35.8 % (34.0-46.0); HDW 3.03; HGB 10.8 gm/dL (11.4-16.0); Hypochromasia Marked; MCH 32.1 pg (25.0-35.0); MCHC 30.1 g/dL (31.0-37.0); MCV 106.7 fL (80.0-100.0); Mean Platelet Volume 7.4; RBC 3.36 m/uL (3.80-5.40); RDW 19.9 % (11.5-15.5); WBC 18.9 k/uL (3.8-10.6)
[2017-08-23 22:49] LABS: Macrocytosis Marked
--- NOTE | 2017-08-23 23:08 | HP ---
HISTORY AND PHYSICAL DATE OF ADMISSION: 08/23/2017 PRESENTING COMPLAINT: Nausea, vomiting, diarrhea. HISTORY OF PRESENTING COMPLAINT: This is a very pleasant 67-year-old patient of Dr. Rodriguez, resident of [facility]. Chronic stable medical conditions include atrial fibrillation, fatty liver, COPD in an ex- smoker, osteoarthritis, obstructive sleep apnea, uses CPAP; chronic gout, morbid obesity. The patient this morning started off with nausea, vomiting and abdominal pain, multiple loose stools. Some blood was noted. Denies any fever. Tired, run down and she was sent in here. She did have some food brought in from outside by her daughter the previous night. REVIEW OF SYSTEMS: CONSTITUTIONAL: Tired. HEENT: None. RESPIRATORY: Baseline short of breath. CARDIOVASCULAR: None. GASTROINTESTINAL: As above. GENITOURINARY: None. MUSCULOSKELETAL: Arthritic pain in joints. DERMATOLOGICAL: None. HEMATOLOGIC: None. LYMPHATIC: None. PSYCHIATRY: None. NEUROLOGICAL: None. PAST MEDICAL HISTORY: Atrial fibrillation, hyperlipidemia, hypertension, osteoarthritis, also sleep apnea with CPAP, gout, bilateral arthritis, morbid obesity, oxygen 2L at all times. PAST SURGICAL HISTORY: , ear surgery, debridement of bilateral toenails, left ear benign tumor removed, . SOCIAL HISTORY: Resident of [facility], nonambulatory, uses the left foot wheelchair. The patient started smoking at age of 21 and quit in 2006 and smoked a few cigarettes a day. FAMILY HISTORY: Mother had colon cancer at the age of 54. HOME MEDICATIONS: 1. Potassium 20 mEq p.o. daily. 2. MiraLAX 17 g p.o. q.12 p.r.n. 3. Protonix 20 mg p.o. daily. 4. Zofran 4 mg p.o. q.8h p.r.n. 5. Omeprazole 40 mg p.o. daily p.r.n. 6. Lopressor 100 mg p.o. b.i.d. 7. Calmoseptine 1 application topical b.i.d. 8. Milk of magnesia 400 mg p.o. daily p.r.n. 9. Linzess 145 mcg p.o. daily. 10.Imdur ER 30 mg p.o. daily. 11.DuoNeb q.i.d. 12.Lasix 20 mg p.o. daily. 13.Folic acid 1 mg p.o. daily. 14.Iron 325 p.o. daily. 15.Procrit 20,000 units IM. 16.Ensure 1 can p.o. t.i.d. 17.Vitamin D3 2000 units p.o. daily. 18.PhosLo 667 mg p.o. daily. 19.Dulcolax 10 mg rectal daily p.r.n. 20.Lipitor 40 mg q.h.s. 21.Aspirin 81 mg p.o. daily. 22.Lac-Hydrin 12% topical b.i.d. 23.Allopurinol 200 mg p.o. daily. 24.Ventolin nebulizer 2.5 q.4h p.r.n. 25.Tylenol 650 mg q.4 p.r.n. ALLERGY: TO IV CONTRAST DYE, FLEET ENEMA, NEPHROTOXINS. EXAMINATION: VITAL SIGNS: On presentation, temperature 96.9, pulse 126, respirations 18, blood pressure 140/66, pulse ox 95% on room air. GENERAL APPEARANCE: Well-built, BMI of 55.2, lying in bed, tired appearing. EYES: Pupils equal. Conjunctivae normal. HEENT: Oral cavity: Dry mucous membranes. NECK: Short, thick. JVD unable to assess. Mass not palpable. RESPIRATORY: Effort normal. Lungs are clear. CARDIOVASCULAR: First and second sounds normal. No edema. ABDOMEN: Slight tenderness, diffuse. Liver and spleen not palpable. LYMPHATIC: No lymph node palpable in neck or axillae. PSYCHIATRY: Alert and oriented x3. Mood and affect normal. NEUROLOGICAL: Pupils equal. Cranial nerve grossly intact. Power and sensation grossly intact. MUSCULOSKELETAL: Evidence of osteoarthritis, especially in the knees and hands. INVESTIGATIONS: White count 14.7, hemoglobin 11.1. Potassium 5.4, BUN 56, creatinine 2.46. The patient's BUN/creatinine was 32/3.50 on 04/20/2017. Stool occult is positive. KUB nonspecific. ASSESSMENT: 1. This is a patient that presented with severe nausea, vomiting, diarrhea, started earlier in the day, actually starting to recede, possibly acute food poisoning/acute gastroenteritis with systemic inflammatory response syndrome. 2. Persistent atrial fibrillation, not a candidate for anticoagulation. 3. Fatty liver. 4. Chronic obstructive pulmonary disease in an ex-smoker. 5. Primary osteoarthritis multiple joints, bilateral. 6. Obstructive sleep apnea. Uses continuous positive airway pressure. 7. Chronic gout. 8. Morbid obesity. Body mass index more than 55. 9. Chronic hypoxic respiratory failure, decreased oxygen from underlying chronic obstructive pulmonary disease. 10.Chronic medical debility. Uses a left wheelchair. 11.Chronic kidney disease stage 4 from hypertensive nephrosclerosis. 12.Hyperkalemia from renal failure. PLAN: Patient's home medications will be resumed. Hold off any diuretic right now. Patient will be hydrated. Normally, this food poisoning is self-limiting and often times viral. No need for antibiotics for the same. The patient will be put on a clear liquid diet and diet will be advanced as tolerated. Patient will BiPAP settings from before. Care was discussed with the patient. MARIOLA / JOHANNYN: [id number] /
[2017-08-23] MEDS: LACTATED RINGERS 1,000 ML IV SCH (23:17)
[2017-08-24] MEDS: LACTATED RINGERS 1,000 ML IV SCH ×2 (05:48→15:26)
[2017-08-24] MEDS: IPRATROPIUM-ALBUTEROL 3 ML NEB INHALATION SCH ×3 (07:17→16:53)
[2017-08-24 07:44] VITALS: BP 129/73; RESP 16; TEMP 97.9
[2017-08-24] MEDS: ALLOPURINOL 100 MG TAB PO SCH (08:33)
[2017-08-24] MEDS: METOPROLOL TARTRATE 50 MG TAB PO SCH (08:33)
[2017-08-24] MEDS: MENTHOL-ZINC OXIDE OINT 113 GM TUBE TOPICAL SCH (08:37)
[2017-08-24] MEDS: AMMONIUM LACTATE 12% CREAM 140 GM TUBE TOPICAL SCH (08:37)
[2017-08-24] MEDS ORDERED: ISOSORBIDE MONONITRATE ER 30 MG TAB.ER.24H PO SCH (09:00)
[2017-08-24] MEDS ORDERED: FUROSEMIDE 20 MG TAB PO SCH (09:00)
[2017-08-24] MEDS ORDERED: NON-FORMULARY DRUG (Linaclotide [Linzess] 145 MCG) PO SCH (09:00)
[2017-08-24] MEDS ORDERED: ALLOPURINOL 100 MG TAB PO SCH (09:00)
[2017-08-24 09:32] LABS: Anisocytosis Slight; Basophils % (A) 0 %; CH 31.7; CHCM 29.6; Eosinophils # (A) 0.2 k/uL (0-0.7); Eosinophils % (A) 2 %; HCT 32.9 % (34.0-46.0); HGB 9.5 gm/dL (11.4-16.0); Hypochromasia Marked; Luc # (Auto) 0.08; Luc % (Auto) 1; Lymphocytes # (A) 0.9 k/uL (1.0-4.8); Lymphocytes % (A) 8 %; MCH 31.3 pg (25.0-35.0); MCV 108.1 fL (80.0-100.0); Macrocytosis Marked; Mean Platelet Volume 7.6; Monocytes # (A) 0.6 k/uL (0-1.0); Monocytes % (A) 5 %; Neutrophils # (A) 9.9 k/uL (1.3-7.7); Neutrophils % (A) 85 %; RBC 3.05 m/uL (3.80-5.40); RDW 19.8 % (11.5-15.5); WBC 11.8 k/uL (3.8-10.6); WBC (Perox) 12.18
[2017-08-24 09:47] LABS: Calcium 9.4 mg/dL (8.4-10.2)
--- NOTE | 2017-08-24 09:47 | P.CONS ---
History of Present Illness - Reason for Consult Consult date: 08/24/17 Nausea vomiting diarrhea Requesting physician: Leonardo Stephens - History of Present Illness 67-year-old female with a history of multiple medical problems including atrial fibrillation morbid obesity CHF chronic kidney disease stage III anemia chronic constipation presently undergoing rehabilitation at [facility] presents with intractable nausea vomiting diarrhea that started yesterday. Patient is on iron supplementation. She had multiple episodes of darker looking bowel movements yesterday but denies gross hematochezia hematemesis or melena. Intermittent abdominal discomfort yesterday but improved today. She underwent EGD and colonoscopy 06/28/[address] Nails with findings of severe erosive gastritis and pandiverticulosis. Admission hemoglobin 11.1 presently 9.5. MCV 108. Platelet 183. BUN 56. Creatinine 2.4. Hemoccult stool positive. Presently denies abdominal pain.. No further emesis. Requesting diet advancement. ECF medications include but not limited to Protonix baby aspirin Linzess Procrit and ferrous sulfate. KUB nonspecific nonobstructive bowel gas pattern. Review of Systems Constitutional: Denies fever, chills, sweats, weight gain, or loss. HEENT: Negative for migraines, blurred vision or loss, earaches, drainage, tinnitus, oral mucosal lesions, dysphagia, or odynophagia. CARDIAC: CHF. Atrial fibrillation. Hypo-lipid. Hypertension. Negative for chest pain, arrhythmias, or palpitation. RESPIRATORY: Obstructive sleep apnea. Pneumonia. Asthma. Negative for shortness of breath, hemoptysis, cough, or sputum production. GI: See HPI for pertinent findings. : Negative for hematuria, urgency, frequency, polyuria, or dysuria. GYNc: Denies possibility of . Negative vaginal discharge. MUSCULOSKELETAL: Osteoarthritis. NEUROLOGIC: Negative for stroke or TIA. ENDOCRINE: Negative for thyroid problems. Nephrology: Chronic kidney disease stage III. Anemia. SKIN: Negative for rash or itching. PSYCHIATRIC: Negative history for depression and anxiety All systems: negative (See HPI) Past Medical History Past Medical History: Atrial Fibrillation, Asthma, Heart Failure, Hyperlipidemia , Hypertension, Osteoarthritis (OA), Pneumonia, Renal Disease, Sleep Apnea/CPAP/ BIPAP Additional Past Medical History / Comment(s): BRUNILDA with CPAP, gout bilateral legs /feet, arthritis multiple joints, sinus problems, past left lower leg cellulitis and wound, UTIs. Morbid obesity, 02 2 LITERS N/C, gastritis,"in my 20 's i had ulcers", anemia "has had blood transfusion, and iron infusions" History of Any Multi-Drug Resistant Organisms: None Reported Past Surgical History: Section, Ear Surgery Additional Past Surgical History / Comment(s): Debridement bilateral pedal toenails, colonoscopy-normal, L ear benign tumor removed, x 2. pt currently resides at [facility] Past Anesthesia/Blood Transfusion Reactions: No Reported Reaction Additional Past Anesthesia/Blood Transfusion Reaction / Comm: blood transfusions - no reaction Past Psychological History: No Psychological Hx Reported Additional Psychological History / Comment(s): pt currently at [facility]. not ambulatory-they use lift to w/c Smoking Status: Former smoker Past Alcohol Use History: Rare Additional Past Alcohol Use History / Comment(s): started smoking at age 21 and quit 2007 a pack would last a week. Past Drug Use History: None Reported - Past Family History Mother Family Medical History: Cancer Additional Family Medical History / Comment(s): Mother of colon cancer at the age of 54 yrs. Father Family Medical History: Myocardial Infarction (NE) Additional Family Medical History / Comment(s): Father of a massive NE at the age of 60 yrs. Medications and Allergies Home Medications Medication Instructions Recorded Confirmed Type Folic Acid 1 mg PO DAILY@1700 12/19/16 08/23/17 History Ipratropium-Albuterol Nebulize 3 ml INHALATION RT-QID 12/19/16 08/23/17 History [Duoneb 0.5 mg-3 mg/3 ml Soln] Acetaminophen Tab [Tylenol] 650 mg PO Q4H PRN 12/25/16 08/23/17 History Cholecalciferol [Vitamin D3] 2,000 unit PO DAILY@1700 12/30/16 08/23/17 History Allopurinol [Zyloprim] 200 mg PO DAILY tab 01/22/17 08/23/17 Rx Bisacodyl [Dulcolax] 10 mg RECTAL DAILY PRN 02/23/17 08/23/17 History Ferrous Sulfate [Iron (65 MG 325 mg PO DAILY@1700 02/23/17 08/23/17 History Elemental)] Aspirin 81 mg PO DAILY@1700 #0 02/24/17 08/23/17 Rx Menthol/Zinc Oxide [Calmoseptine 1 applic TOPICAL BID 04/12/17 08/23/17 History Ointment] Ondansetron HCl [Zofran] 4 mg PO Q8H PRN 04/12/17 08/23/17 History Pantoprazole Sodium [Protonix] 20 mg PO DAILY 04/12/17 08/23/17 History Albuterol Nebulized [Ventolin 2.5 mg INHALATION RT-Q4H PRN neb 04/20/17 Rx Nebulized] Ensure Clear 1 can PO TID #0 04/20/17 08/23/17 Rx Isosorbide Mononitrate ER [Imdur] 30 mg PO DAILY tab 04/20/17 08/23/17 Rx Metoprolol Tartrate [Lopressor] 100 mg PO BID tab 04/20/17 08/23/17 Rx Ammonium Lactate Cream [Lac-Hydrin 1 applic TOPICAL BID 06/25/17 08/23/17 History 12% Cream] Atorvastatin [Lipitor] 40 mg PO HS 06/25/17 08/23/17 History Magnesium Hydroxide [Milk of 400 mg PO DAILY PRN 06/25/17 08/23/17 History Magnesia] Potassium Chloride [K-Tab ER] 20 meq PO DAILY@1700 06/25/17 08/23/17 History Calcium Acetate [Phoslo] 667 mg PO DAILY@1700 08/23/17 08/23/17 History Epoetin Juan Jose [Procrit] 20,000 unit IM SA 08/23/17 08/23/17 History Furosemide [Lasix] 20 mg PO DAILY 08/23/17 08/23/17 History Linaclotide [Linzess] 145 mcg PO DAILY 08/23/17 08/23/17 History Omeprazole 40 mg PO DAILY PRN 08/23/17 08/23/17 History Polyethylene Glycol 3350 [Miralax] 17 gm PO Q12H PRN 08/23/17 08/23/17 History Allergies Allergy/AdvReac Type Severity Reaction Status Date / Time Iodinated Contrast- Oral and AdvReac SEE COMMENT Verified 08/23/17 16:08 IV Dye sodium phosphate AdvReac SEE COMMENT Verified 08/23/17 16:08 [From Fleet Enema] NEPHROTOXINS Allergy SEE COMMENT Uncoded 08/23/17 16:08 Physical Exam Vitals: Vital Signs Temp Pulse Pulse Resp BP BP Pulse Ox 08/24/17 07:24 104 H 08/24/17 07:19 102 H 08/24/17 07:00 97.9 F 80 16 129/73 98 08/23/17 23:00 98.3 F 105 H 20 103/60 93 L 08/23/17 20:22 110 H 08/23/17 20:11 108 H 08/23/17 18:00 96.7 F L 97 18 155/91 100 08/23/17 16:45 111 H 18 172/78 08/23/17 15:11 96.9 F L 126 H 18 140/66 95 Intake and Output 08/23/17 08/24/17 08/24/17 22:59 06:59 14:59 Intake Total 400 100 Balance 400 100 Intake: Oral 400 100 Other: # Voids 1 3 Weight 155 kg General appearance: The patient is alert, oriented, in no acute distress. HET: Head is normocephalic and atraumatic. Pupils are equal and reactive. Oropharynx is clear without lesions. Neck: Supple without lymphadenopathy. Trachea midline. Heart: S1 S2. Regular rate and rhythm. Lungs: No crackles or wheezes are heard. Abdomen: Soft, nontender, nondistended with bowel sounds. No peritoneal signs. No palpable organomegaly or masses. Extremities: +2 bilateral lower extremity edema with Everette wraps. Neurological: No focal deficits. Strength and sensation are grossly intact. Results CBC & Chem 7: 08/23/17 22:25 08/23/17 16:23 Labs: Abnormal Lab Results - Last 24 Hours (Table) 08/23/17 08/23/17 08/23/17 Range/Units 16:23 16:23 16:23 WBC 14.7 H (3.8-10.6) k/uL RBC 3.56 L (3.80-5.40) m/uL Hgb 11.1 L (11.4-16.0) gm/dL MCV 107.2 H (80.0-100.0) fL MCHC 29.0 L (31.0-37.0) g/dL RDW 21.2 H (11.5-15.5) % Neutrophils # 13.5 H (1.3-7.7) k/uL Lymphocytes # 0.6 L (1.0-4.8) k/uL Potassium 5.4 H (3.5-5.1) mmol/L Chloride 110 H (98-107) mmol/L Carbon Dioxide 21 L (22-30) mmol/L BUN 56 H (7-17) mg/dL Creatinine 2.46 H (0.52-1.04) mg/dL Glucose 109 H (74-99) mg/dL Alkaline Phosphatase 132 H (38-126) U/L Total Creatine Kinase 28 L (30-135) U/L Stool Occult Blood (Negative) 08/23/17 08/23/17 Range/Units 16:23 22:25 WBC 18.9 H (3.8-10.6) k/uL RBC 3.36 L (3.80-5.40) m/uL Hgb 10.8 L (11.4-16.0) gm/dL MCV 106.7 H (80.0-100.0) fL MCHC 30.1 L (31.0-37.0) g/dL RDW 19.9 H (11.5-15.5) % Neutrophils # (1.3-7.7) k/uL Lymphocytes # (1.0-4.8) k/uL Potassium (3.5-5.1) mmol/L Chloride (98-107) mmol/L Carbon Dioxide (22-30) mmol/L BUN (7-17) mg/dL Creatinine (0.52-1.04) mg/dL Glucose (74-99) mg/dL Alkaline Phosphatase (38-126) U/L Total Creatine Kinase (30-135) U/L Stool Occult Blood Positive H (Negative) Abdominal x-ray: report reviewed (Dr. Banegas) Assessment and Plan (1) Nausea vomiting and diarrhea Narrative/Plan: 67-year-old female admitted with intractable nausea vomiting diarrhea without overt bleeding but positive guaiac stool. Possible gastroenteritis possible gastritis possible esophagitis status post EGD colonoscopy 06/28/2017 with findings of severe erosive gastritis and pandiverticulosis. Current Visit: Yes Status: Acute Code(s): R11.2 - NAUSEA WITH VOMITING, UNSPECIFIED; R19.7 - DIARRHEA, UNSPECIFIED SNOMED Code(s): 7004424 (2) Morbid obesity with BMI of 50.0-59.9, adult Current Visit: Yes Status: Acute Code(s): E66.01 - MORBID (SEVERE) OBESITY DUE TO EXCESS CALORIES; Z68.43 - BODY MASS INDEX (BMI) 50-59.9 , ADULT SNOMED Code(s): 820255102 (3) Acute on chronic renal failure Current Visit: No Status: Acute Code(s): N17.9 - ACUTE KIDNEY FAILURE, UNSPECIFIED; N18.9 - CHRONIC KIDNEY DISEASE, UNSPECIFIED SNOMED Code(s): 729870367 (4) Chronic a-fib Current Visit: No Status: Acute Code(s): I48.2 - CHRONIC ATRIAL FIBRILLATION SNOMED Code(s): 616334191 (5) Chronic anemia Current Visit: No Status: Acute Code(s): D64.9 - ANEMIA, UNSPECIFIED SNOMED Code(s): 192026637 (6) Diverticulosis of colon Current Visit: Yes Status: Acute Code(s): K57.30 - DVRTCLOS OF LG INT W/O PERFORATION OR ABSCESS W/O BLEEDING SNOMED Code(s): 078206064 (7) Guaiac + stool Current Visit: Yes Status: Acute Code(s): R19.5 - OTHER FECAL ABNORMALITIES SNOMED Code(s): 99564762 Plan: 1. Protonix 40 mg daily. 2. Carafate 1 g twice a day with meals. 3. Full liquid diet. Repeat endoscopy not planned this time but contingent on clinical course. Follow CBC closely. Continue with maintenance medications. We'll continue to follow with you. Stool studies requested and pending. Thank you for this kind referral and the opportunity to participate in the care of your patient. This consultation was discussed with Dr. Banegas. The impression and plan of care have been directed as dictated.
[2017-08-24 09:49] LABS: Potassium 4.6 mmol/L (3.5-5.1)
[2017-08-24 10:57] LABS: Manual Review Performed
--- NOTE | 2017-08-24 15:34 | DS ---
DISCHARGE SUMMARY DATE OF ADMISSION: 08/23/2017. DATE OF DISCHARGE: 08/24/2017. FINAL DIAGNOSIS: MMODL / IJN: [id number] /
--- NOTE | 2017-08-24 15:58 | DS ---
DISCHARGE SUMMARY DATE OF ADMISSION: August 23, 2017. DATE OF DISCHARGE: August 24, 2017 FINAL DIAGNOSES: 1. Acute severe acute severe gastroenteritis with systemic inflammatory response syndrome and acute food poisoning. 2. Persistent atrial fibrillation, not a candidate for anticoagulation. 3. Fatty liver. 4. Chronic obstructive pulmonary disease in an ex-smoker. 5. Primary osteoarthritis multiple joints, bilateral. 6. Obstructive sleep apnea uses CPAP. 7. Chronic gout. 8. Morbid obesity, BMI more than 55. 9. Chronic hypoxic respiratory failure, decreased oxygen from underlying chronic obstructive pulmonary disease. 10.Chronic medical debility. Uses a lift and a wheelchair. 11.Chronic kidney disease stage 4 from hypertensive nephrosclerosis. 12.Hypokalemia from chronic renal failure. HOSPITAL COURSE: This patient ate food brought in by the daughter including cheese preparation, cooked meat and also then had [employer], developed nausea, vomiting, abdominal cramping, diarrhea which since has all resolved. The patient is afebrile. White count came down nicely. Tolerating a full liquid diet. The patient has chronic kidney disease. BUN and creatinine is 55 and 2.37. Patient advanced now to a soft bland diet. PHYSICAL EXAMINATION: On exam abdomen is soft, nontender. Patient looks comfortable. Patient being discharged back to the [facility]. Care was discussed with the patient. DISCHARGE MEDICATIONS: 1. Folic acid 1 mg p.o. daily. 2. DuoNeb q.i.d. 3. Tylenol 650 mg q.4 p.r.n. 4. Vitamin D3 2000 units p.o. daily. 5. Dulcolax 10 mg rectal daily p.r.n. 6. Iron 325 p.o. daily. 7. Aspirin 81 mg p.o. daily. 8. Calmoseptine 1 application topical b.i.d. 9. Zofran 4 mg p.o. q8h p.r.n. 10.Ventolin 2.5 nebulizer q.4h p.r.n. 11.Ensure Clear 1 can p.o. t.i.d. 12.Imdur ER 30 mg p.o. daily. 13.Lopressor 100 mg p.o. b.i.d. 14.Lac-Hydrin 12% topical b.i.d. 15.Lipitor 40 mg q.h.s. 16.Milk of magnesia 400 mg p.o. daily. 17.Potassium 20 mEq p.o. daily. 18.PhosLo 667 mg p.o. daily 5:00 pm. 19.Procrit 20,000 units IM on Saturdays. 20.Lasix 20 mg p.o. daily. 21.Linzess 145 mcg p.o. daily. 22.Omeprazole 40 mg p.o. daily. 23.MiraLAX 17 g p.o. q.12 hours p.r.n. 24.Allopurinol 100 mg p.o. daily new dose for the renal failure. 25.Ceftin 5 mg p.o. b.i.d. 6 tablets. DISPOSITION: [facility]. Follow up with Dr. Rodriguez. Labs, CBC, BMP in 1-2 days. Diet soft bland advanced then into renal diet. MMODL / IJN: [id number] /
[2017-08-24] MEDS: CHOLECALCIFEROL 1,000 UNIT TAB PO SCH (16:31)
[2017-08-24] MEDS: POTASSIUM CHLORIDE ER 20 MEQ TAB.ER PO SCH (16:31)
[2017-08-24] MEDS: CALCIUM ACETATE 667 MG CAP PO SCH (16:31)
[2017-08-24] MEDS: FOLIC ACID 1 MG TAB PO SCH (16:31)
[2017-08-24 17:11] VITALS: PULSE 72
[2017-08-25] MEDS ORDERED: DARBEPOETIN ALFA 60 MCG/0.3 ML SYRINGE SQ SCH (09:00)
== END 2017-08-24 19:17 ==
LOC: EC 15:10 → 4MS4W 16:49
PROVIDERS: ADMIT Hospitalist; ATTEND Hospitalist
DX: T62.91XA Toxic effect of unspecified noxious substance eaten as food, accidental (unintentional), initial encounter (principal); K52.9 Noninfective gastroenteritis and colitis, unspecified; R65.10 Systemic inflammatory response syndrome (SIRS) of non-infectious origin without acute organ dysfunction; K76.0 Fatty (change of) liver, not elsewhere classified; I48.1 Persistent atrial fibrillation; G47.33 Obstructive sleep apnea (adult) (pediatric); J44.9 Chronic obstructive pulmonary disease, unspecified; J96.11 Chronic respiratory failure with hypoxia; E66.01 Morbid (severe) obesity due to excess calories; I13.0 Hypertensive heart and chronic kidney disease with heart failure and stage 1 through stage 4 chronic kidney disease, or unspecified chronic kidney disease; I50.9 Heart failure, unspecified; M1A.9XX0 Chronic gout, unspecified, without tophus (tophi); N18.4 Chronic kidney disease, stage 4 (severe); E78.5 Hyperlipidemia, unspecified; M15.9 Polyosteoarthritis, unspecified; E87.5 Hyperkalemia; D64.9 Anemia, unspecified; K59.09 Other constipation; N17.9 Acute kidney failure, unspecified; K57.30 Diverticulosis of large intestine without perforation or abscess without bleeding; Z68.43 Body mass index [BMI] 50.0-59.9, adult; Z79.899 Other long term (current) drug therapy; Z79.82 Long term (current) use of aspirin; Z88.8 Allergy status to other drugs, medicaments and biological substances; Z91.041 Radiographic dye allergy status; Z99.89 Dependence on other enabling machines and devices; Z99.81 Dependence on supplemental oxygen; Z87.11 Personal history of peptic ulcer disease; Z87.891 Personal history of nicotine dependence; Z80.0 Family history of malignant neoplasm of digestive organs; Z82.49 Family history of ischemic heart disease and other diseases of the circulatory system
CPT/HCPCS: 96361; 96365; 96375; 99285; 36415; 94660 ×2; 94640 ×3; 94760; 93005; 86900; 86901; 80053; 80048; 82550; 82553; 83735; 84484; 85025 ×2; 85027; 85730; 86850; 82272; 74000; G0378 ×2; J0696; C9113

== ENCOUNTER 2019-05-23 15:36 | Inpatient (IN) | payer MEDICARE, OTHER ==
[2019-05-23] MEDS ORDERED: FUROSEMIDE 10 MG/ML 4 ML VIAL IV STA (16:35)
[2019-05-23] MEDS ORDERED: MAGNESIUM SULFATE-D5W PMX 1 GM in DEXTROSE/WATER 1 100ML.BAG IVPB STA (16:35)
--- NOTE | 2019-05-23 16:40 | ED ---
SOB HPI - General Chief Complaint: Shortness of Breath Stated Complaint: SOB, Abnormal Labs Time Seen by Provider: 05/23/19 16:15 Source: patient, RN notes reviewed Mode of arrival: ambulatory Limitations: no limitations - History of Present Illness Initial Comments: This is a 69-year-old female history of congestive heart failure and asthma among other medical issues who was sent in from her [facility] with complaints of shortness of breath and exertional dyspnea for the past 2-3 days with at least a 10 pound weight gain in the last week. She was easier updrafts without much relief no fevers chills or sweats she has had a cough no palpitations no overt chest pain she states she has had increased edema. MD Complaint: shortness of breath - Related Data Home Medications Medication Instructions Recorded Confirmed Folic Acid 1 mg PO DAILY@1700 12/19/16 11/25/18 Cholecalciferol [Vitamin D3 (25 2,000 unit PO DAILY@1700 12/30/16 11/25/18 Mcg = 1000 Iu)] Bisacodyl [Dulcolax] 10 mg RECTAL DAILY PRN 02/23/17 11/25/18 Ferrous Sulfate [Iron (65 MG 325 mg PO DAILY@1700 02/23/17 11/25/18 Elemental)] Atorvastatin [Lipitor] 40 mg PO HS 06/25/17 11/25/18 Magnesium Hydroxide [Milk of 400 mg PO DAILY PRN 06/25/17 11/25/18 Magnesia] Potassium Chloride [K-Tab ER] 20 meq PO DAILY@1700 06/25/17 11/25/18 Calcium Acetate [PhosLo] 667 mg PO DAILY@1700 08/23/17 11/25/18 Epoetin Juan Jose [Procrit] 20,000 unit IM WEEKLY 08/23/17 11/25/18 Linaclotide [Linzess] 145 mcg PO DAILY 08/23/17 11/25/18 Calcitriol 0.25 mcg PO DAILY 11/20/18 11/25/18 Lactulose 30 ml PO DAILY 11/20/18 11/25/18 Sennosides [Senna] 8.6 mg PO HS 11/20/18 11/25/18 Torsemide [Demadex] 100 mg PO DAILY 11/20/18 11/25/18 Previous Rx's Medication Instructions Recorded Aspirin 81 mg PO DAILY@1700 #0 02/24/17 Albuterol Nebulized [Ventolin 2.5 mg INHALATION RT-Q4H PRN neb 04/20/17 Nebulized] Isosorbide Mononitrate ER [Imdur] 30 mg PO DAILY tab 04/20/17 Metoprolol Tartrate [Lopressor] 100 mg PO BID tab 04/20/17 Allopurinol [Zyloprim] 100 mg PO DAILY #0 tab 08/24/17 Allergies Allergy/AdvReac Type Severity Reaction Status Date / Time Iodinated Contrast- Oral and AdvReac SEE COMMENT Verified 05/23/19 17:56 IV Dye sodium phosphate AdvReac SEE COMMENT Verified 05/23/19 17:56 [From Fleet Enema] NEPHROTOXINS Allergy SEE COMMENT Uncoded 11/25/18 12:54 Review of Systems ROS Statement: Those systems with pertinent positive or pertinent negative responses have been documented in the HPI. ROS Other: All systems not noted in ROS Statement are negative. Past Medical History Past Medical History: Atrial Fibrillation, Asthma, Heart Failure, Hyperlipidemia, Hypertension, Osteoarthritis (OA), Pneumonia, Renal Disease, Sleep Apnea/CPAP/BIPAP Additional Past Medical History / Comment(s): BRUNILDA with CPAP, gout bilateral legs/feet, arthritis multiple joints, sinus problems, past left lower leg cellulitis and wound, UTIs. Morbid obesity, 02 2 LITERS N/C, gastritis,"in my 20's i had ulcers", anemia "has had blood transfusion, and iron infusions" History of Any Multi-Drug Resistant Organisms: None Reported Past Surgical History: Section, Ear Surgery Additional Past Surgical History / Comment(s): Debridement bilateral pedal toenails, colonoscopy-normal, L ear benign tumor removed, x 2. pt currently resides at [facility] Past Anesthesia/Blood Transfusion Reactions: No Reported Reaction Additional Past Anesthesia/Blood Transfusion Reaction / Comment(s): blood transfusions- no reaction Past Psychological History: No Psychological Hx Reported Smoking Status: Former smoker - Past Family History Mother Family Medical History: Cancer Additional Family Medical History / Comment(s): Mother of colon cancer at the age of 54 yrs. Father Family Medical History: Myocardial Infarction (MT) Additional Family Medical History / Comment(s): Father of a massive MT at the age of 60 yrs. General Exam - General Exam Comments Initial Comments: This a well-developed well-nourished obese female who is awake alert oriented 3 Limitations: no limitations General appearance: alert, anxious Head exam: Present: atraumatic, normocephalic, normal inspection Eye exam: Present: normal appearance, PERRL, EOMI. Absent: scleral icterus, conjunctival injection, periorbital swelling ENT exam: Present: normal exam, mucous membranes moist Neck exam: Present: normal inspection, full ROM, other (Phenergan or bruits). Absent: tenderness, meningismus, lymphadenopathy Respiratory exam: Present: decreased breath sounds. Absent: respiratory distress, wheezes, rales, rhonchi, stridor Cardiovascular Exam: Present: irregular rhythm. Absent: systolic murmur, diastolic murmur, rubs, gallop, clicks GI/Abdominal exam: Present: soft, normal bowel sounds. Absent: distended, tenderness, guarding, rebound, rigid Extremities exam: Present: full ROM, normal capillary refill, pedal edema. Absent: tenderness, joint swelling, calf tenderness Back exam: Present: normal inspection Neurological exam: Present: alert, oriented X3, CN II-XII intact Psychiatric exam: Present: normal affect, normal mood Skin exam: Present: warm, dry, intact, normal color. Absent: rash Course Vital Signs 05/23/19 15:58 Temperature 97.2 F L Pulse Rate 62 Respiratory 20 Rate Blood Pressure 124/74 O2 Sat by Pulse 100 Oximetry - Reevaluation(s) Reevaluation #1: 05/23/19 18:00 Reevaluation patient she is receiving a breathing treatment. Patient will be admitted she does demonstrate evidence of CHF. Medical Decision Making - Medical Decision Making The patient will be admitted I did discuss case Dr. Coreas. He does evidence of CHF and renal insufficiency. Both cardiology and nephrology will be consulted. - Lab Data Result diagrams: 05/23/19 16:21 05/23/19 16:21 Lab Results 05/23/19 05/23/19 05/23/19 Range/Units 16:21 16:21 16:21 WBC 11.4 H (3.8-10.6) k/uL RBC 3.98 (3.80-5.40) m/uL Hgb 11.6 (11.4-16.0) gm/dL Hct 38.0 (34.0-46.0) % MCV 95.7 (80.0-100.0) fL MCH 29.1 (25.0-35.0) pg MCHC 30.4 L (31.0-37.0) g/dL RDW 16.2 H (11.5-15.5) % Plt Count 210 (150-450) k/uL Neutrophils % 82 % Lymphocytes % 9 % Monocytes % 5 % Eosinophils % 4 % Basophils % 0 % Neutrophils # 9.3 H (1.3-7.7) k/uL Lymphocytes # 1.0 (1.0-4.8) k/uL Monocytes # 0.5 (0-1.0) k/uL Eosinophils # 0.4 (0-0.7) k/uL Basophils # 0.0 (0-0.2) k/uL Hypochromasia Moderate Anisocytosis Slight PT (9.0-12.0) sec INR (<1.2) APTT (22.0-30.0) sec Sodium 140 (137-145) mmol/L Potassium 4.5 (3.5-5.1) mmol/L Chloride 102 (98-107) mmol/L Carbon Dioxide 28 (22-30) mmol/L Anion Gap 10 mmol/L BUN 68 H (7-17) mg/dL Creatinine 3.07 H (0.52-1.04) mg/dL Est GFR (CKD-EPI)AfAm 17 (>60 ml/min/1.73 sqM) Est GFR (CKD-EPI)NonAf 15 (>60 ml/min/1.73 sqM) Glucose 107 H (74-99) mg/dL Calcium 9.1 (8.4-10.2) mg/dL Magnesium 2.2 (1.6-2.3) mg/dL Total Bilirubin 0.5 (0.2-1.3) mg/dL AST 26 (14-36) U/L ALT 16 (9-52) U/L Alkaline Phosphatase 156 H (38-126) U/L Creatine Kinase 53 (30-135) U/L Troponin I (0.000-0.034) ng/mL NT-Pro-B Natriuret Pep 4650 pg/mL Total Protein 6.9 (6.3-8.2) g/dL Albumin 3.4 L (3.5-5.0) g/dL 07/26/19 07/26/19 Range/Units 16:21 16:21 WBC (3.8-10.6) k/uL RBC (3.80-5.40) m/uL Hgb (11.4-16.0) gm/dL Hct (34.0-46.0) % MCV (80.0-100.0) fL MCH (25.0-35.0) pg MCHC (31.0-37.0) g/dL RDW (11.5-15.5) % Plt Count (150-450) k/uL Neutrophils % % Lymphocytes % % Monocytes % % Eosinophils % % Basophils % % Neutrophils # (1.3-7.7) k/uL Lymphocytes # (1.0-4.8) k/uL Monocytes # (0-1.0) k/uL Eosinophils # (0-0.7) k/uL Basophils # (0-0.2) k/uL Hypochromasia Anisocytosis PT 10.5 (9.0-12.0) sec INR 1.0 (<1.2) APTT 25.6 (22.0-30.0) sec Sodium (137-145) mmol/L Potassium (3.5-5.1) mmol/L Chloride (98-107) mmol/L Carbon Dioxide (22-30) mmol/L Anion Gap mmol/L BUN (7-17) mg/dL Creatinine (0.52-1.04) mg/dL Est GFR (CKD-EPI)AfAm (>60 ml/min/1.73 sqM) Est GFR (CKD-EPI)NonAf (>60 ml/min/1.73 sqM) Glucose (74-99) mg/dL Calcium (8.4-10.2) mg/dL Magnesium (1.6-2.3) mg/dL Total Bilirubin (0.2-1.3) mg/dL AST (14-36) U/L ALT (9-52) U/L Alkaline Phosphatase (38-126) U/L Creatine Kinase (30-135) U/L Troponin I <0.012 (0.000-0.034) ng/mL NT-Pro-B Natriuret Pep pg/mL Total Protein (6.3-8.2) g/dL Albumin (3.5-5.0) g/dL - EKG Data -: EKG Interpreted by Me (Atrial fibrillation with a rate of 6070 QRS 90 QT since QTC 424/448 abnorma) - Radiology Data Radiology results: report reviewed (Increased pulmonary vascular markings cardiomegaly), image reviewed Critical Care Time Critical Care Time: Yes Critical Care Time: Review of critical care time which includes initial presentation with history physical labs x-rays multiple reevaluation the patient review old charting discussion with Dr. Coreas admission orders documentation the above Disposition Clinical Impression: Systolic congestive heart failure, Asthma exacerbation, Adult respiratory distress syndrome, Renal insufficiency syndrome, Obesity Disposition: ADMITTED IP TO THIS HOSP Condition: Fair Referrals: Jake Rodriguez MD [Primary Care Provider] - 1-2 days
[2019-05-23 16:55] LABS: Anisocytosis Slight; Basophils % (A) 0 %; Eosinophils # (A) 0.4 k/uL (0-0.7); Eosinophils % (A) 4 %; HGB 11.6 gm/dL (11.4-16.0); Hypochromasia Moderate; Lymphocytes % (A) 9 %; MCH 29.1 pg (25.0-35.0); MCHC 30.4 g/dL (31.0-37.0); MCV 95.7 fL (80.0-100.0); Mean Platelet Volume 6.9; Monocytes # (A) 0.5 k/uL (0-1.0); Monocytes % (A) 5 %; Neutrophils # (A) 9.3 k/uL (1.3-7.7); Neutrophils % (A) 82 %; Platelet Count 210 k/uL (150-450); RBC 3.98 m/uL (3.80-5.40); RDW 16.2 % (11.5-15.5); WBC 11.4 k/uL (3.8-10.6)
[2019-05-23 17:04] LABS: Partial Thromboplastin Time 25.6 sec (22.0-30.0); Prothrombin Time 10.5 sec (9.0-12.0)
[2019-05-23 17:06] LABS: Albumin 3.4 g/dL (3.5-5.0); Calcium 9.1 mg/dL (8.4-10.2); Magnesium 2.2 mg/dL (1.6-2.3); Potassium 4.5 mmol/L (3.5-5.1); Total Bilirubin 0.5 mg/dL (0.2-1.3); Total Protein 6.9 g/dL (6.3-8.2)
[2019-05-23] MEDS ORDERED: IPRATROPIUM-ALBUTEROL 3 ML NEB INHALATION STA (17:15)
--- NOTE | 2019-05-23 17:42 | XR ---
EXAMINATION: XR chest 2V DATE AND TIME: 05/23/2019 5:23 PM CLINICAL INDICATION: PHH; difficulty breathing TECHNIQUE: Departmental protocol COMPARISON: 04/16/2017 FINDINGS: The cardiac silhouette is markedly enlarged, appearing more prominent that the prior study. Pulmonary vasculature is mildly silhouetted by a fine reticular pattern of increased density with mil dly thickened fissures, consistent with interstitial phase pulmonary edema. Pleural spaces are negative. No definite acute skeletal or soft tissue findings. IMPRESSION: Mild interstitial phase cardiogenic pulmonary edema pattern.
[2019-05-23] MEDS ORDERED: NA PHOS,M-B/NA PHOS,DI-BA 133 ML ENEMA RECTAL PRN (18:12)
[2019-05-23] MEDS ORDERED: MAGNESIUM HYDROXIDE 2,400 MG/10 ML CUP PO PRN (18:12)
[2019-05-23] MEDS ORDERED: BISACODYL 10 MG SUPP RECTAL PRN (18:12)
[2019-05-23] MEDS ORDERED: ALPRAZolam 0.25 MG TAB PO PRN (21:01)
[2019-05-23] MEDS ORDERED: NITROGLYCERIN OINT 1 INCH/GM PACKET TOPICAL SCH (22:00)
[2019-05-23] MEDS: ATORVASTATIN 40 MG TAB PO SCH (22:07)
[2019-05-23] MEDS: SENNOSIDES 8.6 MG TAB PO SCH (22:07)
--- NOTE | 2019-05-23 23:00 | HP ---
HISTORY AND PHYSICAL DATE OF SERVICE: 05/23/2019 CHIEF COMPLAINT: Shortness of breath and weight gain. HISTORY OF PRESENT ILLNESS: 69-year-old woman with a past medical history of multiple medical problems including CHF, is being followed by Dr. Rodriguez in [facility] on the [place]. A 2D echocardiogram done in 2017 showed ejection fraction about 55 to 55 percent. The patient is complaining of increasing shortness of breath and also gaining weight at least 20 to 30 pounds over the past several weeks. The patient came to [facility] and was admitted for further evaluation and treatment. The patient also had other medical issues including chronic kidney disease, history of asthma, atrial fibrillation, hypertension, hyperlipidemia, DJD, history pneumonia, sleep apnea, chronic hypoxic respiratory failure also. The creatinine was found to be elevated around 3.07, which is more than normal indicating acute on chronic renal failure. The patient was admitted for further evaluation. Patient was started on IV Lasix. There is no history of fever, rigors. No history of chest pain, palpitations. No history of headache, loss of consciousness, seizures. PAST MEDICAL HISTORY: Renal failure, history of CHF, history of asthma, atrial fibrillation, DJD, history of sleep apnea, history of section. MEDICATIONS: 1. Demadex 100 mg p.o. daily. 2. Senna 8.6 at bedtime p.r.n. 3. K-Tab ER 20 mg p.o. daily. 4. Fleets enema p.r.n. 5. Lopressor 100 mg p.o. b.i.d. 6. Milk of magnesia 2.4 mg daily p.r.n. 7. Linzess 145 g mcg p.o. daily. 8. Lactulose 20 mg p.o. daily. 9. Imdur 30 mg p.o. daily. 10.DuoNeb q.i.d. 11.Folic acid 1 mg p.o. daily. 12.Iron 320 mg p.o. daily. 13.Procrit 20,000. 14.Coenzyme Q 60 mg p.o. daily. 15.Vitamin D3 2000 daily. 16.PhosLo 667 p.o. daily. 17.Calcitriol 0.25 mcg p.o. daily. 18.Dulcolax p.r.n. 19.Lipitor 40 mg at bedtime. 20.Aspirin 81 mg p.o. daily. 21.Zyloprim 100 mg p.o. daily. 22.Ventolin HFA 1-2 puffs every 4h p.r.n. 23.Tylenol 650 every 4 p.r.n. ALLERGIES: IODINATED CONTRAST DYE, SODIUM PHOSPHATE, NEPHROTOXINS. FAMILY HISTORY: No history of cancer in the family. SOCIAL HISTORY: History of smoking. Occasional alcohol intake. REVIEW OF SYSTEMS: ENT: No diminished vision or hearing. CARDIOVASCULAR: As mentioned earlier. GI: No nausea. : No dysuria. NERVOUS SYSTEM: No numbness or weakness. ALLERGY/IMMUNOLOGY: No asthma or hayfever. MUSCULOSKELETAL: As mentioned earlier. ENDOCRINE: No history of diabetes or hypothyroidism. CONSTITUTIONAL: As mentioned earlier. DERMATOLOGY: Negative. RHEUMATOLOGY: Negative. PSYCHIATRY: As mentioned. PHYSICAL EXAMINATION: Alert oriented. Pulse is 62, blood pressure is 120/70, respirations 20, temperature 97.2, pulse ox 100 percent on room air. HEENT: Conjunctivae normal. Oral mucosa moist. NECK: Obese. Jugular venous veins are not visible. CARDIOVASCULAR: S1 and S2 muffled. Ejection systolic murmur. LUNGS: Breath sounds diminished at the bases. Breathing effort is increased. Bilateral scattered rhonchi and basilar crackles. ABDOMEN: Soft, nontender. No mass palpable. LEGS: Bilateral leg edema. Generalized anasarca also present. NERVOUS SYSTEM: Higher functions as mentioned. Moves all 4 limbs. Mild diffuse weakness. LYMPHATICS: No lymph nodes palpable in the neck, axillae or groin. JOINTS: No active deformities or arthropathy. LABS: WBC 7.2, hemoglobin 11.6, sodium 140, potassium 4.5, creatinine 3.07. ASSESSMENT: 1. Congestive heart failure acute exacerbation acute on chronic diastolic dysfunction ejection fraction 40-50 percent. 2. Renal failure with creatinine 3.07 with possible acute on chronic renal failure with baseline chronic kidney disease stage III. 3. Increased WBC. 4. History of atrial fibrillation. 5. History of asthma. 6. History of hypertension. 7. History of hyperlipidemia. 8. History of DJD. 9. History of pneumonia. 10.History of sleep apnea. 11.Chronic hypoxic respiratory failure on 2 L nasal cannula. 12.History of degenerative joint disease. 13.Remote history of nicotine dependence. 14.Obesity with body mass index of 64.2. RECOMMENDATIONS AND DISCUSSION: In this 69-year-old woman who presented with multiple medical issues, we will monitor the patient closely. Resume the home medications. Avoid nephrotoxic medications. I would recommend Lasix 40 IV every 8 and limit fluid intake to 1200 mL per 24 hours. Otherwise cardiology consultation. Guarded prognosis because of multiple complex medical issues. Further recommendations to follow. MMLETY / JOHANNYN: [id number] /
[2019-05-23] MEDS: FUROSEMIDE 10 MG/ML 4 ML VIAL IV SCH (23:49)
[2019-05-24] MEDS ORDERED: FUROSEMIDE 40 MG TAB PO SCH
[2019-05-24] MEDS: IPRATROPIUM-ALBUTEROL 3 ML NEB INHALATION SCH ×4 (01:44→19:23)
[2019-05-24] MEDS: PANTOPRAZOLE 40 MG TABLET PO SCH (06:34)
[2019-05-24] MEDS: CALCIUM ACETATE 667 MG CAP PO SCH (06:34)
[2019-05-24 07:19] LABS: Anisocytosis Slight; Basophils % (A) 0 %; Eosinophils # (A) 0.5 k/uL (0-0.7); Eosinophils % (A) 4 %; HCT 35.5 % (34.0-46.0); HGB 10.9 gm/dL (11.4-16.0); Hypochromasia Marked; Lymphocytes % (A) 8 %; MCH 30.4 pg (25.0-35.0); MCHC 30.6 g/dL (31.0-37.0); MCV 99.1 fL (80.0-100.0); Macrocytosis Slight; Mean Platelet Volume 7.2; Monocytes # (A) 0.6 k/uL (0-1.0); Monocytes % (A) 5 %; Neutrophils # (A) 10.1 k/uL (1.3-7.7); Neutrophils % (A) 82 %; Platelet Count 221 k/uL (150-450); RBC 3.58 m/uL (3.80-5.40); RDW 16.7 % (11.5-15.5); WBC 12.3 k/uL (3.8-10.6)
[2019-05-24 07:44] LABS: Potassium 4.1 mmol/L (3.5-5.1)
[2019-05-24] MEDS: CALCITRIOL 0.25 MCG CAP PO SCH (08:22)
[2019-05-24] MEDS: METOPROLOL TARTRATE 50 MG TAB PO SCH ×2 (08:22→16:23)
[2019-05-24] MEDS: FUROSEMIDE 10 MG/ML 4 ML VIAL IV SCH ×3 (08:22→23:26)
[2019-05-24] MEDS ORDERED: TORSEMIDE 100 MG PO SCH (09:00)
[2019-05-24] MEDS ORDERED: CO Q10 PO SCH (09:00)
[2019-05-24] MEDS: ALLOPURINOL 100 MG TAB PO SCH (09:06)
[2019-05-24] MEDS: LACTULOSE 20 GM/30 ML CUP PO SCH (09:06)
[2019-05-24] MEDS: HEPARIN SODIUM,PORCINE 5,000 UNIT/ML 1 ML VIAL SQ SCH ×2 (09:06→20:48)
--- NOTE | 2019-05-24 09:26 | P.CRDCN ---
History of Present Illness Consult date: 05/24/19 Requesting physician: Margie Coreas Consult reason: congestive heart failure Chief complaint: Shortness of breath History of present illness: This is a 69-year-old -[place] female with past medical history significant for obesity, chronic chronic kidney disease, hypertension, chronic persistent atrial fibrillation, patient states she used to be on blood thinners because of history of GI bleeding as well as vaginal bleeding this had been discontinued. Patient also has history of sleep apnea for which she uses a BiPAP regularly. She lives at [facility], presented to the hospital with symptoms of progressively worsening shortness of breath, and she did notice some swelling in her feet and her hands. Chest x-ray showed mild interstitial phase cardiogenic pulmonary edema. EKG showed atrial fibrillation with a controlled ventricular response. I pressure on arrival here 124/70 with a heart rate in the 60s, 100% on room air. White blood cell count 12.3, hemoglobin 10.9, platelet count 221. Sodium 141, potassium 4.1, BUN 64, creatinine 2.9. Magnesium 2.2, troponins negative 3, BNP level 4650. The patient was initiated on IV Lasix in the emergency room, she is overall diuresing well, 2600 out night. Past Medical History Past Medical History: Atrial Fibrillation, Asthma, Heart Failure, Hyperlipidemia, Hypertension, Osteoarthritis (OA), Pneumonia, Renal Disease, Sleep Apnea/CPAP/BIPAP Additional Past Medical History / Comment(s): BRUNILDA with CPAP, gout bilateral legs/feet, arthritis multiple joints, sinus problems, past left lower leg cellulitis and wound, UTIs. Morbid obesity, 02 2 LITERS N/C, gastritis,"in my 20's i had ulcers", anemia "has had blood transfusion, and iron infusions" History of Any Multi-Drug Resistant Organisms: None Reported Past Surgical History: Section, Ear Surgery Additional Past Surgical History / Comment(s): Debridement bilateral pedal toenails, colonoscopy-normal, L ear benign tumor removed, x 2. pt currently resides at [facility] Past Anesthesia/Blood Transfusion Reactions: No Reported Reaction Additional Past Anesthesia/Blood Transfusion Reaction / Comment(s): blood transfusions- no reaction Past Psychological History: No Psychological Hx Reported Additional Psychological History / Comment(s): pt currently at [facility]. not ambulatory-they use lift to w/c Smoking Status: Former smoker Past Alcohol Use History: Rare Additional Past Alcohol Use History / Comment(s): started smoking at age 21 and quit 2007 a pack would last a week. Past Drug Use History: None Reported - Past Family History Mother Family Medical History: Cancer Additional Family Medical History / Comment(s): Mother of colon cancer at the age of 54 yrs. Father Family Medical History: Myocardial Infarction ([place]) Additional Family Medical History / Comment(s): Father of a massive VA at the age of 60 yrs. Medications and Allergies Home Medications Medication Instructions Recorded Confirmed Type Folic Acid 1 mg PO DAILY@1200 12/19/16 05/23/19 History Cholecalciferol [Vitamin D3 (25 2,000 unit PO DAILY@1200 12/30/16 05/23/19 History Mcg = 1000 Iu)] Bisacodyl [Dulcolax] 10 mg RECTAL DAILY PRN 02/23/17 05/23/19 History Ferrous Sulfate [Iron (65 MG 325 mg PO DAILY@1200 02/23/17 05/23/19 History Elemental)] Atorvastatin [Lipitor] 40 mg PO HS 06/25/17 05/23/19 History Magnesium Hydroxide [Milk of 2,400 mg PO DAILY PRN 06/25/17 05/23/19 History Magnesia] Potassium Chloride [K-Tab ER] 20 meq PO DAILY@1200 06/25/17 05/23/19 History Calcium Acetate [PhosLo] 667 mg PO DAILY 08/23/17 05/23/19 History Epoetin Juan Jose [Procrit] 20,000 unit SQ TH 08/23/17 05/23/19 History Linaclotide [Linzess] 145 mcg PO DAILY 08/23/17 05/23/19 History Allopurinol [Zyloprim] 100 mg PO DAILY #0 tab 08/24/17 05/23/19 Rx Calcitriol 0.25 mcg PO DAILY@0800 11/20/18 05/23/19 History Lactulose 20 mg PO DAILY 11/20/18 05/23/19 History Sennosides [Senna] 8.6 - 17.2 mg PO HS PRN 11/20/18 05/23/19 History Torsemide [Demadex] 100 mg PO DAILY 11/20/18 05/23/19 History Acetaminophen Tab [Tylenol Tab] 650 mg PO Q4H 05/23/19 05/23/19 History Albuterol Inhaler [Ventolin Hfa 1 - 2 puff INHALATION RT-Q4H PRN 05/23/19 05/23/19 History Inhaler] Aspirin 81 mg PO DAILY@1200 05/23/19 05/23/19 History Co Q-10 60mg 60 mg PO DAILY 05/23/19 05/23/19 History Ipratropium-Albuterol Nebulize 3 ml INHALATION RT-QID 05/23/19 05/23/19 History [Duoneb 0.5 mg-3 mg/3 ml Soln] Isosorbide Mononitrate ER [Imdur] 30 mg PO DAILY@1200 05/23/19 05/23/19 History Metoprolol Tartrate [Lopressor] 100 mg PO BID@0800,1700 05/23/19 05/23/19 History Na Phos,M-B/Na Phos,Di-Ba [Fleet 133 ml RECTAL ONCE PRN 05/23/19 05/23/19 History Adult] Allergies Allergy/AdvReac Type Severity Reaction Status Date / Time Iodinated Contrast- Oral and AdvReac SEE COMMENT Verified 05/23/19 17:56 IV Dye sodium phosphate AdvReac SEE COMMENT Verified 05/23/19 17:56 [From Fleet Enema] NEPHROTOXINS Allergy SEE COMMENT Uncoded 11/25/18 12:54 Physical Exam Vitals: Vital Signs Temp Pulse Pulse Resp BP BP Pulse Ox 05/24/19 08:28 74 05/24/19 08:16 70 05/24/19 07:45 98.5 F 74 18 118/54 97 05/24/19 04:00 97.5 F L 70 20 122/57 100 05/24/19 01:55 68 05/24/19 01:46 68 05/23/19 23:45 98.1 F 62 18 118/79 100 05/23/19 21:30 98.4 F 64 16 107/51 99 05/23/19 20:00 97.8 F 76 18 126/78 98 05/23/19 18:12 70 05/23/19 17:59 68 05/23/19 16:45 20 05/23/19 15:58 97.2 F L 62 20 124/74 100 Intake and Output 05/23/19 05/24/19 05/24/19 22:59 06:59 14:59 Intake Total 240 180 Output Total 1800 800 Balance -1800 -560 180 Intake: Oral 240 180 Output: Urine 1800 800 Other: Voiding Method Indwelling Catheter Indwelling Catheter Indwelling Catheter Weight 175.087 kg 176.9 kg PHYSICAL EXAMINATION: GENERAL: 69-year-old -[place] female in no acute distress at the time of my examination HEENT: Head is atraumatic, normocephalic. Pupils equal, round. Sclera anicteric. Conjunctiva are clear. Mucous membranes of the mouth are moist. Neck is supple. There is no elevated jugular venous pressure. No carotid bruit is heard. HEART EXAMINATION: Heart S1 and S2 irregularly irregular a systolic murmur is heard CHEST EXAMINATION: Lungs reveal diminished air entry to bilateral bases. ABDOMEN: Soft, obese, nontender. Bowel sounds are heard. No organomegaly noted. EXTREMITIES:[ 2+ peripheral pulses with trace to 1+ evidence of peripheral edema, ulcerated area noted to the patient on the right leg NEUROLOGIC patient is awake, alert and oriented 3 . . Results 05/24/19 06:30 05/24/19 06:30 Cardiac Enzymes 05/23/19 05/23/19 05/23/19 Range/Units 16:21 16:21 23:48 AST 26 (14-36) U/L Troponin I <0.012 <0.012 (0.000-0.034) ng/mL 05/24/19 Range/Units 06:30 AST (14-36) U/L Troponin I <0.012 (0.000-0.034) ng/mL Coagulation 05/23/19 Range/Units 16:21 PT 10.5 (9.0-12.0) sec APTT 25.6 (22.0-30.0) sec CBC 05/23/19 05/24/19 Range/Units 16:21 06:30 WBC 11.4 H 12.3 H (3.8-10.6) k/uL RBC 3.98 3.58 L (3.80-5.40) m/uL Hgb 11.6 10.9 L (11.4-16.0) gm/dL Hct 38.0 35.5 (34.0-46.0) % Plt Count 210 221 (150-450) k/uL Comprehensive Metabolic Panel 05/23/19 05/24/19 Range/Units 16:21 06:30 Sodium 140 141 (137-145) mmol/L Potassium 4.5 4.1 (3.5-5.1) mmol/L Chloride 102 102 (98-107) mmol/L Carbon Dioxide 28 31 H (22-30) mmol/L BUN 68 H 64 H (7-17) mg/dL Creatinine 3.07 H 2.98 H (0.52-1.04) mg/dL Glucose 107 H 90 (74-99) mg/dL Calcium 9.1 9.0 (8.4-10.2) mg/dL AST 26 (14-36) U/L ALT 16 (9-52) U/L Alkaline Phosphatase 156 H (38-126) U/L Total Protein 6.9 (6.3-8.2) g/dL Albumin 3.4 L (3.5-5.0) g/dL Current Medications Generic Name Dose Route Start Last Admin Trade Name Freq PRN Reason Stop Dose Admin Acetaminophen 650 mg 05/23/19 18:15 Tylenol Tab PO Q4H PRN mild pain/fever Albuterol/Ipratropium 3 ml 05/24/19 02:00 05/24/19 08:14 Duoneb 0.5 Mg-3 Mg/3 Ml Soln INHALATION 3 ml RT-Q6H CARLOS Administration Allopurinol 100 mg 05/24/19 09:00 05/24/19 09:06 Zyloprim PO 100 mg DAILY [facility] Administration Alprazolam 0.25 mg 05/23/19 21:01 Xanax PO TID PRN Anxiety Aspirin 81 mg 05/24/19 12:00 Aspirin PO DAILY@1200 [facility] Atorvastatin Calcium 40 mg 05/23/19 21:00 05/23/19 22:07 Lipitor PO 40 mg HS [facility] Administration Bisacodyl 10 mg 05/23/19 18:12 Dulcolax RECTAL DAILY PRN Constipation Calcitriol 0.25 mcg 05/24/19 08:00 05/24/19 08:22 Rocaltrol PO 0.25 mcg DAILY@0800 [facility] Administration Calcium Acetate 667 mg 05/24/19 07:30 05/24/19 06:34 Phoslo PO 667 mg AC-BRKFST [facility] Administration Cholecalciferol 2,000 unit 05/24/19 12:00 Vitamin D3 (25 Mcg = 1000 Iu) PO DAILY@1200 [facility] Darbepoetin Juan Jose 60 mcg 05/29/19 09:00 Aranesp SQ TH [facility] Ferrous Sulfate 325 mg 05/24/19 12:00 Feosol PO DAILY@1200 [facility] Folic Acid 1 mg 05/24/19 12:00 Folic Acid PO DAILY@1200 [facility] Furosemide 40 mg 05/24/19 00:00 05/24/19 08:22 Lasix IV 40 mg Q8HR [facility] Administration Heparin Sodium (Porcine) 5,000 unit 05/24/19 09:00 05/24/19 09:06 Heparin SQ 5,000 unit Q12HR [facility] Administration Isosorbide Mononitrate 30 mg 05/24/19 12:00 Imdur PO DAILY@1200 [facility] Lactulose 20 gm 05/24/19 09:00 05/24/19 09:06 Cephulac PO 20 gm DAILY [facility] Administration Magnesium Hydroxide 2,400 mg 05/23/19 18:12 Milk Of Magnesia PO DAILY PRN Constipation Metoprolol Tartrate 100 mg 05/24/19 08:00 05/24/19 08:22 Lopressor PO 100 mg BID@0800,1700 [facility] Administration Linaclotide [Linzess 145 mcg 05/24/19 09:00 05/24/19 09:03 ] 145 Mcg PO Not Given DAILY [facility] Pantoprazole Sodium 40 mg 05/24/19 07:30 05/24/19 06:34 Protonix PO 40 mg AC-BRKFST [facility] Administration Potassium Chloride 20 meq 05/24/19 12:00 K-Dur 20 PO DAILY@1200 [facility] Senna 8.6 mg 05/23/19 21:00 05/23/19 22:07 Senokot PO 8.6 mg HS [facility] Administration Sodium Biphosphate/Sodium Phosphate 133 ml 05/23/19 18:12 Fleet Adult RECTAL ONCE PRN Constipation Intake and Output 05/23/19 05/24/19 05/24/19 22:59 06:59 14:59 Intake Total 240 180 Output Total 1800 800 Balance -1800 -560 180 Intake: Oral 240 180 Output: Urine 1800 800 Other: Voiding Method Indwelling Catheter Indwelling Catheter Indwelling Catheter Weight 175.087 kg 176.9 kg 05/24/19 06:30 05/24/19 06:30 EKG Interpretations (text) EKG shows atrial fibrillation with a controlled ventricular response Assessment and Plan Plan: Assessment and plan #1 diastolic congestive heart failure acute on chronic. Patient had an echo cardiac gram with Doppler study performed in 2016 which revealed an ejection fraction of 50-55% #2 obesity #3 hypertension #4 diabetes #5 hyperlipidemia #6 chronic kidney disease #7 sleep apnea #8 chronic atrial fibrillation, not a candidate for anticoagulation because of history of GI and vaginal bleeding Plan We will obtain an echocardiogram with Doppler study and continue current dose of IV Lasix, monitoring intake and output as well as daily weights and daily lytes BUN and creatinine closely. Further recommendations to follow. DNP note has been reviewed, I agree with a documented findings and plan of care. Patient was seen and examined.
--- NOTE | 2019-05-24 09:36 | P.NPCON ---
History of Present Illness - Reason for Consult Consult date: 05/24/19 acute renal failure - Chief Complaint Shortness of breath - History of Present Illness Admitted to the hospital with shortness of breath and 10 pound weight gain. History of diastolic CHF on Demadex 100 mg by mouth daily. Denies noncompliance. Questionable dietary compliance. No nausea vomiting diarrhea. Chronic kidney disease stage IV with Baseline creatinine 2.8-3.0 MG per DL. Currently has a Arteaga catheter. 2 L of urine output since last night and currently on Lasix 40 mg IV every 8. Feels better today. No NSAID use, recent contrast studies. Review of Systems Constitutional: Reports as per HPI Past Medical History Past Medical History: Atrial Fibrillation, Asthma, Heart Failure, Hyperlipidemia, Hypertension, Osteoarthritis (OA), Pneumonia, Renal Disease, Sleep Apnea/CPAP/BIPAP Additional Past Medical History / Comment(s): BRUNILDA with CPAP, gout bilateral legs/feet, arthritis multiple joints, sinus problems, past left lower leg cellulitis and wound, UTIs. Morbid obesity, 02 2 LITERS [place], gastritis,"in my 20's i had ulcers", anemia "has had blood transfusion, and iron infusions" History of Any Multi-Drug Resistant Organisms: None Reported Past Surgical History: Section, Ear Surgery Additional Past Surgical History / Comment(s): Debridement bilateral pedal toenails, colonoscopy-normal, L ear benign tumor removed, x 2. pt currently resides at [facility] Past Anesthesia/Blood Transfusion Reactions: No Reported Reaction Additional Past Anesthesia/Blood Transfusion Reaction / Comment(s): blood transfusions- no reaction Past Psychological History: No Psychological Hx Reported Additional Psychological History / Comment(s): pt currently at [facility]. not ambulatory-they use lift to w/c Smoking Status: Former smoker Past Alcohol Use History: Rare Additional Past Alcohol Use History / Comment(s): started smoking at age 21 and quit 2007 a pack would last a week. Past Drug Use History: None Reported - Past Family History Mother Family Medical History: Cancer Additional Family Medical History / Comment(s): Mother of colon cancer at the age of 54 yrs. Father Family Medical History: Myocardial Infarction ([place]) Additional Family Medical History / Comment(s): Father of a massive VA at the age of 60 yrs. Medications and Allergies Home Medications Medication Instructions Recorded Confirmed Type Folic Acid 1 mg PO DAILY@1200 12/19/16 05/23/19 History Cholecalciferol [Vitamin D3 (25 2,000 unit PO DAILY@1200 12/30/16 05/23/19 History Mcg = 1000 Iu)] Bisacodyl [Dulcolax] 10 mg RECTAL DAILY PRN 02/23/17 05/23/19 History Ferrous Sulfate [Iron (65 MG 325 mg PO DAILY@1200 02/23/17 05/23/19 History Elemental)] Atorvastatin [Lipitor] 40 mg PO HS 06/25/17 05/23/19 History Magnesium Hydroxide [Milk of 2,400 mg PO DAILY PRN 06/25/17 05/23/19 History Magnesia] Potassium Chloride [K-Tab ER] 20 meq PO DAILY@1200 06/25/17 05/23/19 History Calcium Acetate [PhosLo] 667 mg PO DAILY 08/23/17 05/23/19 History Epoetin Juan Jose [Procrit] 20,000 unit SQ TH 08/23/17 05/23/19 History Linaclotide [Linzess] 145 mcg PO DAILY 08/23/17 05/23/19 History Allopurinol [Zyloprim] 100 mg PO DAILY #0 tab 08/24/17 05/23/19 Rx Calcitriol 0.25 mcg PO DAILY@0800 11/20/18 05/23/19 History Lactulose 20 mg PO DAILY 11/20/18 05/23/19 History Sennosides [Senna] 8.6 - 17.2 mg PO HS PRN 11/20/18 05/23/19 History Torsemide [Demadex] 100 mg PO DAILY 11/20/18 05/23/19 History Acetaminophen Tab [Tylenol Tab] 650 mg PO Q4H 05/23/19 05/23/19 History Albuterol Inhaler [Ventolin Hfa 1 - 2 puff INHALATION RT-Q4H PRN 05/23/19 05/23/19 History Inhaler] Aspirin 81 mg PO DAILY@1200 05/23/19 05/23/19 History Co Q-10 60mg 60 mg PO DAILY 05/23/19 05/23/19 History Ipratropium-Albuterol Nebulize 3 ml INHALATION RT-QID 05/23/19 05/23/19 History [Duoneb 0.5 mg-3 mg/3 ml Soln] Isosorbide Mononitrate ER [Imdur] 30 mg PO DAILY@1200 05/23/19 05/23/19 History Metoprolol Tartrate [Lopressor] 100 mg PO BID@0800,1700 05/23/19 05/23/19 History Na Phos,M-B/Na Phos,Di-Ba [Fleet 133 ml RECTAL ONCE PRN 05/23/19 05/23/19 History Adult] Allergies Allergy/AdvReac Type Severity Reaction Status Date / Time Iodinated Contrast- Oral and AdvReac SEE COMMENT Verified 05/23/19 17:56 IV Dye sodium phosphate AdvReac SEE COMMENT Verified 05/23/19 17:56 [From Fleet Enema] NEPHROTOXINS Allergy SEE COMMENT Uncoded 11/25/18 12:54 Physical Exam Vitals: Vital Signs Temp Pulse Pulse Resp BP BP Pulse Ox 05/24/19 08:28 74 05/24/19 08:16 70 05/24/19 07:45 98.5 F 74 18 118/54 97 05/24/19 04:00 97.5 F L 70 20 122/57 100 05/24/19 01:55 68 05/24/19 01:46 68 05/23/19 23:45 98.1 F 62 18 118/79 100 05/23/19 21:30 98.4 F 64 16 107/51 99 05/23/19 20:00 97.8 F 76 18 126/78 98 05/23/19 18:12 70 05/23/19 17:59 68 05/23/19 16:45 20 05/23/19 15:58 97.2 F L 62 20 124/74 100 Intake and Output 05/23/19 05/24/19 05/24/19 22:59 06:59 14:59 Intake Total 240 180 Output Total 1800 800 Balance -1800 -560 180 Intake: Oral 240 180 Output: Urine 1800 800 Other: Voiding Method Indwelling Catheter Indwelling Catheter Indwelling Catheter Weight 175.087 kg 176.9 kg No acute distress S1-S2 heard Decreased breath sounds Arteaga catheter Edema Results - Lab Results Most recent lab results Calcium 9.0 mg/dL (8.4-10.2) 05/24/19 06:30 Magnesium 2.2 mg/dL (1.6-2.3) 05/23/19 16:21 05/24/19 06:30 05/24/19 06:30 Assessment and Plan Assessment: #1 CK D stage IV secondary to nephrosclerosis/type to cardiorenal syndrome with a baseline creatinine of 2.8-3.0 MG per DL. 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 Continue with IV Lasix at the current dose. #2 check ABG to rule out peritonitis acidosis causing metabolic alkalosis. #3 at discharge change Demadex to 40 mg by mouth twice a day. #4 avoid nephrotoxic agents and hypotensive episodes.
[2019-05-24] MEDS: CHOLECALCIFEROL 1,000 UNIT TAB PO SCH (11:35)
[2019-05-24] MEDS: ASPIRIN 81 MG PO SCH (11:35)
[2019-05-24] MEDS: FOLIC ACID 1 MG TAB PO SCH (11:35)
[2019-05-24] MEDS: POTASSIUM CHLORIDE ER 20 MEQ TAB.ER PO SCH (11:35)
[2019-05-24] MEDS: FERROUS SULFATE 325 MG TAB PO SCH (11:35)
[2019-05-24] MEDS ORDERED: ISOSORBIDE MONONITRATE ER 30 MG TAB.ER.24H PO SCH (12:00)
[2019-05-24 13:54] VITALS: BMI 64.9
[2019-05-24] MEDS ORDERED: ASPIRIN 325 MG TAB PO SCH (14:00)
[2019-05-24 18:23] LABS: Appearance,Urine Clear (Clear); Bacteria,Urine Rare /hpf; Bilirubin,Urine Negative (Negative); Blood,Urine Small (Negative); Color,Urine Light Yellow; Glucose,Urine (UA) Negative (Negative); Ketones,Urine Negative (Negative); Leukocyte Esterase,Urine Large (Negative); Mucus,Urine Rare /hpf; Nitrite,Urine Negative (Negative); PH, Urine 5.5 (5.0-8.0); Protein,Urine Negative (Negative); RBC,Urine 6 /hpf (0-5); Specific Gravity,Urine 1.009 (1.001-1.035); Squamous Epithelial Cell,Urine 1 /hpf (0-4); Urobilinogen,Urine <2.0 mg/dL (<2.0); WBC,Urine 34 /hpf (0-5)
--- NOTE | 2019-05-24 19:58 | PN ---
PROGRESS NOTE DATE OF SERVICE: 05/24/2019 This 69-year-old woman who was admitted with CHF acute exacerbation with acute on chronic diastolic dysfunction, is on IV diuretics. Patient appears to be diuresing well at this time. Cardiology following the patient as well as nephrology. The creatinine is 2.98 today. PAST MEDICAL HISTORY: Reviewed. REVIEW OF SYSTEMS: CARDIOVASCULAR SYSTEM: No angina or palpitations. RESPIRATION: As mentioned earlier. GI: As mentioned earlier. : No dysuria. CENTRAL NERVOUS SYSTEM: No focal deficits. CURRENT MEDICATIONS: Reviewed and include: 1. Tylenol 650 q.4 p.r.n. 2. DuoNeb q.i.d. and p.r.n. 3. Zyloprim 100 mg p.o. 4. Xanax 0.5 t.i.d. 5. Aspirin 81 mg. 6. Lipitor 40 mg q.h.s. 7. Dulcolax 10 mg daily p.r.n. 8. Rocaltrol 0.5 mg daily. 9. PhosLo 667 with breakfast. 10.Vitamin D3 2000 daily. 11.Iron sulfate 320 mg daily. 12.Folic acid 1 mg. 13.Lasix 40 mg IV q.8h. 14.Heparin 5000 subcu b.i.d. 15.Imdur 30 mg. 16.Cephulac 20 g p.o. daily. 17.Milk of magnesia. 18.Lopressor 100 mg p.o. b.i.d. 19.Linzess 145 mg p.o. daily. 20.Protonix 40 mg a.c. breakfast. 21.K-Dur 20 mEq p.o. daily. 22.Senokot 8.6 mg q.h.s. 23.Fleet enema p.r.n. PHYSICAL EXAM: Patient is alert, oriented x3. Pulse 67. Blood pressure 108/57, respiration 18, temperature 97.7, pulse ox 98% on room air. HEENT: Conjunctivae normal. Oral mucosa moist. NECK: Obese. CARDIOVASCULAR SYSTEM: S1, S2 muffled. Ejection systolic murmur. RESPIRATORY: Breath sounds diminished in the bases. A few scattered rhonchi and crackles. ABDOMEN: Soft, obese, nontender. LEGS: Bilateral leg edema. NERVOUS SYSTEM: Diffusely weak. LAB: WBC 12.2, hemoglobin 10.9. Sodium 140, potassium 4.1. ASSESSMENT: 1. Congestive heart failure, acute exacerbation with acute on chronic diastolic dysfunction. Ejection fraction 40-50 percent. 2. Renal failure with creatinine 3.07, possible acute on chronic kidney failure with baseline chronic kidney stage III. 3. Increased WBC. 4. Atrial fibrillation. 5. History of asthma. 6. History of hypertension. 7. History of hyperlipidemia. 8. History of degenerative joint disease. 9. History of pneumonia. 10.History of sleep apnea. 11.Chronic hypoxic respiratory failure on 2 L nasal cannula. 12.History of degenerative joint disease. 13.Remote history of nicotine dependence. 14.Obesity with body mass index 64.2. RECOMMENDATIONS AND DISCUSSION: In this 69-year-old woman who presented with multiple medical issues, at this time, I recommend to continue current medications, management and symptomatic treatment. Continue the diuretics. Monitor fluid and electrolytes balance closely. Fluid restriction 1200 mL for 24 hours. Otherwise, continue the rest of medications. Repeat labs. I would also recommend UA with micro. Closely follow with multiple consultants. Guarded prognosis. Further recommendations to follow. MMODL / IJN: [id number] /
[2019-05-24] MEDS: SENNOSIDES 8.6 MG TAB PO SCH (20:48)
[2019-05-24] MEDS: ATORVASTATIN 40 MG TAB PO SCH (20:48)
[2019-05-25] MEDS: ACETAMINOPHEN TAB 325 MG TAB PO PRN ×2 (00:08→06:34)
[2019-05-25] MEDS: IPRATROPIUM-ALBUTEROL 3 ML NEB INHALATION SCH ×5 (02:11→20:01)
[2019-05-25] MEDS: PANTOPRAZOLE 40 MG TABLET PO SCH (06:31)
[2019-05-25] MEDS: CALCIUM ACETATE 667 MG CAP PO SCH (06:31)
[2019-05-25 07:08] LABS: Anisocytosis Slight; Basophils % (A) 0 %; Eosinophils # (A) 0.5 k/uL (0-0.7); Eosinophils % (A) 4 %; HGB 10.5 gm/dL (11.4-16.0); Hypochromasia Moderate; Lymphocytes # (A) 1.2 k/uL (1.0-4.8); Lymphocytes % (A) 10 %; MCHC 30.1 g/dL (31.0-37.0); MCV 96.4 fL (80.0-100.0); Mean Platelet Volume 6.6; Monocytes # (A) 0.6 k/uL (0-1.0); Monocytes % (A) 5 %; Neutrophils # (A) 9.1 k/uL (1.3-7.7); Neutrophils % (A) 79 %; Platelet Count 219 k/uL (150-450); RBC 3.63 m/uL (3.80-5.40); RDW 16.2 % (11.5-15.5); WBC 11.6 k/uL (3.8-10.6)
[2019-05-25 07:14] LABS: Potassium 4.3 mmol/L (3.5-5.1)
[2019-05-25] MEDS: CALCITRIOL 0.25 MCG CAP PO SCH (08:16)
[2019-05-25] MEDS: LACTULOSE 20 GM/30 ML CUP PO SCH ×2 (08:16→08:18)
[2019-05-25] MEDS: FUROSEMIDE 10 MG/ML 4 ML VIAL IV SCH ×2 (08:16→21:31)
[2019-05-25] MEDS: HEPARIN SODIUM,PORCINE 5,000 UNIT/ML 1 ML VIAL SQ SCH ×2 (08:17→21:31)
[2019-05-25] MEDS: ALLOPURINOL 100 MG TAB PO SCH (08:17)
[2019-05-25] MEDS: METOPROLOL TARTRATE 50 MG TAB PO SCH ×2 (09:09→17:50)
--- NOTE | 2019-05-25 10:11 | P.PN ---
Subjective Principal diagnosis: Seen and examined for the follow-up of acute kidney injury. Shortness of breath better. No nausea vomiting diarrhea. 3 L of urine output in the last 24 hours. Objective - Vital Signs Vital signs: Vital Signs Temp 97.9 F 05/25/19 07:34 Pulse 66 05/25/19 07:34 Resp 18 05/25/19 07:34 BP 98/68 05/25/19 07:34 Pulse Ox 96 05/25/19 07:34 Intake & Output 05/24/19 05/25/19 05/25/19 18:59 06:59 18:59 Intake Total 660 100 180 Output Total 1800 1200 Balance -1140 -1100 180 Weight 176.9 kg Intake: Oral 660 100 180 Output: Urine 1800 1200 Other: Voiding Method Indwelling Catheter Indwelling Catheter Indwelling Catheter - Exam No acute distress S1-S2 heard Lungs clear Arteaga catheter No edema - Labs CBC & Chem 7: 05/25/19 06:48 05/25/19 06:48 Labs: Abnormal Lab Results - Last 24 Hours (Table) 05/24/19 05/25/19 05/25/19 Range/Units 18:08 06:48 06:48 WBC 11.6 H (3.8-10.6) k/uL RBC 3.63 L (3.80-5.40) m/uL Hgb 10.5 L (11.4-16.0) gm/dL MCHC 30.1 L (31.0-37.0) g/dL RDW 16.2 H (11.5-15.5) % Neutrophils # 9.1 H (1.3-7.7) k/uL Carbon Dioxide 31 H (22-30) mmol/L BUN 72 H (7-17) mg/dL Creatinine 3.11 H (0.52-1.04) mg/dL Glucose 111 H (74-99) mg/dL Urine Blood Small H (Negative) Ur Leukocyte Esterase Large H (Negative) Urine RBC 6 H (0-5) /hpf Urine WBC 34 H (0-5) /hpf Urine Bacteria Rare H (None) /hpf Urine Mucus Rare H (None) /hpf Assessment and Plan Assessment: #1 CKD stage IV secondary to nephrosclerosis/type 2 cardiorenal syndrome with a baseline creatinine of 2.8-3.0 MG per DL. 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 Continue with IV Lasix. Decrease Lasix to twice daily. #2 check ABG to rule out respiratory acidosis causing metabolic alkalosis. #3 at discharge change Demadex to 40 mg by mouth twice a day. #4 avoid nephrotoxic agents and hypotensive episodes.
--- NOTE | 2019-05-25 10:28 | ECHOF ---
Referral Reason:chf MEASUREMENTS -------- HEIGHT: 165.1 cm WEIGHT: 176.4 kg BP: 102/57 RVIDd: 3.7 cm (< 3.3) IVSd: 1.3 cm (0.6 - 1.1) LVIDd: 4.9 cm (3.9 - 5.3) LVPWd: 1.2 cm (0.6 - 1.1) IVSs: 1.8 cm LVIDs: 2.6 cm LVPWs: 2.0 cm LA Diam: 3.8 cm (2.7 - 3.8) Ao Diam: 2.6 cm (2.0 - 3.7) MV EXCURSION: 15.662 mm (> 18.000) MV EF SLOPE: 54 mm/s (70 - 150) EPSS: 0.5 cm RAP: 5.00 mmHg RVSP: 24.18 mmHg FINDINGS -------- Sinus rhythm. This was a technically difficult study with suboptimal views. The left ventricular size is normal. There is mild concentric left ventricular hypertrophy. Overa ll left ventricular systolic function is low-normal with, an EF between 50 - 55 %. The right ventricle is mild to moderately enlarged. The left atrial size is normal. The right atrium is normal in size. The aortic valve was not well visualized. The mitral valve leaflets are mildly thickened. Mild tricuspid regurgitation present. Right ventricular systolic pressure is normal at < 35 mmHg. The pulmonic valve was not well visualized. The aortic root size is normal. IVC Not well visulized. There is no pericardial effusion. CONCLUSIONS -------- 1. Sinus rhythm. 2. This was a technically difficult study with suboptimal views. 3. The left ventricular size is normal. 4. There is mild concentric left ventricular hypertrophy. 5. Overall left ventricular systolic function is low-normal with, an EF between 50 - 55 %. 6. The right ventricle is mild to moderately enlarged. 7. The left atrial size is normal. 8. The right atrium is normal in size. 9. The aortic valve was not well visualized. 10. The mitral valve leaflets are mildly thickened. 11. Mild tricuspid regurgitation present. 12. Right ventricular systolic pressure is normal at < 35 mmHg. 13. The pulmonic valve was not well visualized. 14. The aortic root size is normal. 15. IVC Not well visulized. 16. There is no pericardial effusion. [employer]IL CAR UN[employer]ER: Criss Kidd RDCS
--- NOTE | 2019-05-25 10:34 | P.PN ---
Subjective Progress Note Date: 05/25/19 This is a 69-year-old -[place]ian female with past medical history significant for obesity, chronic chronic kidney disease, hypertension, chronic persistent atrial fibrillation, patient states she used to be on blood thinners because of history of GI bleeding as well as vaginal bleeding this had been discontinued. Patient also has history of sleep apnea for which she uses a BiPAP regularly. She lives at [facility], presented to the hospital with symptoms of progressively worsening shortness of breath, and she did notice some swelling in her feet and her hands. Chest x-ray showed mild interstitial phase cardiogenic pulmonary edema. EKG showed atrial fibrillation with a controlled ventricular response. I pressure on arrival here 124/70 with a heart rate in the 60s, 100% on room air. White blood cell count 12.3, hemoglobin 10.9, platelet count 221. Sodium 141, potassium 4.1, BUN 64, creatinine 2.9. Magnesium 2.2, troponins negative 3, BNP level 4650. The patient was initiated on IV Lasix in the emergency room, she is overall diuresing well, 2600 out night. 05/25 2019 Patient seen and examined this morning, breathing is improving, good urine output through the night last night. Creatinine 3.1 today, continues to be on IV Lasix. She was complaining of some bilateral knee pain through the night which she states is much improved this morning. Blood pressure 98/68 with a he art rate in the 60s, 96% on room air. White blood cell count 11.6, hemoglobin 10.5, platelet count 219. Sodium 141, potassium 4.3, BUN 72 and creatinine 3.1 today. Objective - Vital Signs Vital signs: Vital Signs Temp 97.9 F 05/25/19 07:34 Pulse 66 05/25/19 07:34 Resp 18 05/25/19 07:34 BP 98/68 05/25/19 07:34 Pulse Ox 96 05/25/19 07:34 Intake & Output 05/24/19 05/25/19 05/25/19 18:59 06:59 18:59 Intake Total 660 100 180 Output Total 1800 1200 Balance -1140 -1100 180 Weight 176.9 kg Intake: Oral 660 100 180 Output: Urine 1800 1200 Other: Voiding Method Indwelling Catheter Indwelling Catheter Indwelling Catheter - Exam PHYSICAL EXAMINATION: GENERAL: 69-year-old -[place]ian female in no acute distress at the time of my examination HEENT: Head is atraumatic, normocephalic. Pupils equal, round. Sclera anicter ic. Conjunctiva are clear. Mucous membranes of the mouth are moist. Neck is supple. There is no elevated jugular venous pressure. No carotid bruit is heard. HEART EXAMINATION: Heart S1 and S2 irregularly irregular a systolic murmur is heard CHEST EXAMINATION: Lungs reveal diminished air entry to bilateral bases. ABDOMEN: Soft, obese, nontender. Bowel sounds are heard. No organomegaly noted. EXTREMITIES:[ 2+ peripheral pulses with trace to 1+ evidence of peripheral edema, ulcerated area noted to the patient on the right leg NEUROLOGIC patient is awake, alert and oriented 3 . - Labs CBC & Chem 7: 05/25/19 06:48 05/25/19 06:48 Labs: Abnormal Lab Results - Last 24 Hours (Table) 05/24/19 05/25/19 05/25/19 Range/Units 18:08 06:48 06:48 WBC 11.6 H (3.8-10.6) k/uL RBC 3.63 L (3.80-5.40) m/uL Hgb 10.5 L (11.4-16.0) gm/dL MCHC 30.1 L (31.0-37.0) g/dL RDW 16.2 H (11.5-15.5) % Neutrophils # 9.1 H (1.3-7.7) k/uL Carbon Dioxide 31 H (22-30) mmol/L BUN 72 H (7-17) mg/dL Creatinine 3.11 H (0.52-1.04) mg/dL Glucose 111 H (74-99) mg/dL Urine Blood Small H (Negative) Ur Leukocyte Esterase Large H (Negative) Urine RBC 6 H (0-5) /hpf Urine WBC 34 H (0-5) /hpf Urine Bacteria Rare H (None) /hpf Urine Mucus Rare H (None) /hpf Assessment and Plan Plan: Assessment and plan #1 diastolic congestive heart failure acute on chronic. Patient had an echo car diac gram with Doppler study performed in 2017 which revealed an ejection fraction of 50-55% #2 obesity #3 hypertension #4 diabetes #5 hyperlipidemia #6 chronic kidney disease #7 sleep apnea #8 chronic atrial fibrillation, not a candidate for anticoagulation because of history of GI and vaginal bleeding Plan Echocardiogram with Doppler study was performed which revealed an ejection fraction of 50-55%, we'll continue with current dose of IV Lasix, continue to monitor intake and output along with daily weights and daily lytes BUN and creatinine. DNP note has been reviewed, I agree with a documented findings and plan of care. Patient was seen and examined.
[2019-05-25] MEDS: FOLIC ACID 1 MG TAB PO SCH (12:32)
[2019-05-25] MEDS: CHOLECALCIFEROL 1,000 UNIT TAB PO SCH (12:32)
[2019-05-25] MEDS: POTASSIUM CHLORIDE ER 20 MEQ TAB.ER PO SCH (12:32)
[2019-05-25] MEDS: FERROUS SULFATE 325 MG TAB PO SCH (12:32)
[2019-05-25] MEDS: ASPIRIN 81 MG PO SCH (12:32)
[2019-05-25] MEDS ORDERED: IPRATROPIUM-ALBUTEROL 3 ML NEB INHALATION PRN (19:56)
--- NOTE | 2019-05-25 20:25 | PN ---
PROGRESS NOTE DATE OF SERVICE: 05/25/2019 This 69-year-old woman who was admitted with CHF acute exacerbations on IV Lasix. Creatinine is slightly high at this time. No chest pain. No palpitations. No fever. Cardiology and nephrology following the patient closely. The patient is currently still on Lasix 40 IV b.i.d. No chest pain. No palpitations. No fever. EXAM: Alert and oriented x3. Pulse 64, blood pressure 125/70, respiration 18, temperature 97.9, pulse ox 97% on room air. HEENT: Conjunctivae normal. NECK: No jugular venous distention. CARDIOVASCULAR: S1, S2 muffled. RESPIRATORY: Breath sounds diminished in the bases. A few scattered rhonchi. ABDOMEN: Soft, obese. LEGS: Bilateral leg edema. NERVOUS SYSTEM: Diffusely weak. LABS: WBC 11.2, hemoglobin 10.5, sodium 140, potassium 4.2, creatinine 3.11. ASSESSMENT: 1. Congestive heart failure acute exacerbation with acute on chronic diastolic dysfunction, ejection fraction 50-55 percent. 2. Renal failure with creatinine 3.07, possible acute on chronic kidney failure with baseline chronic kidney disease stage III. 3. Increased WBC. 4. Atrial fibrillation. 5. History of asthma. 6. History of hypertension. 7. History of hyperlipidemia. 8. History of degenerative joint disease. 9. History of pneumonia. 10.History of sleep apnea. 11.Chronic hypoxic respiratory failure on 2 L nasal cannula. 12.History of degenerative joint disease. 13.Remote history of nicotine dependence. 14.Obesity with body mass index 64.2. RECOMMENDATIONS AND DISCUSSION: I recommend to continue current medications, continue symptomatic treatment. Otherwise we will continue the Lasix. Monitor creatinine closely. Intake will monitor closely with Cardiology and Nephrology. Guarded prognosis. Resume the rest of medications. Further recommendations to follow. See orders for details. MMODL / IJN: [id number] /
[2019-05-25] MEDS: ATORVASTATIN 40 MG TAB PO SCH (21:31)
[2019-05-25] MEDS: SENNOSIDES 8.6 MG TAB PO SCH (21:32)
[2019-05-26] MEDS: PANTOPRAZOLE 40 MG TABLET PO SCH (06:30)
[2019-05-26] MEDS: CALCIUM ACETATE 667 MG CAP PO SCH (06:30)
[2019-05-26] MEDS: IPRATROPIUM-ALBUTEROL 3 ML NEB INHALATION SCH ×4 (07:23→19:09)
[2019-05-26 07:37] LABS: Anisocytosis Slight; Basophils % (A) 0 %; Eosinophils # (A) 0.5 k/uL (0-0.7); Eosinophils % (A) 5 %; HCT 35.8 % (34.0-46.0); HGB 10.8 gm/dL (11.4-16.0); Hypochromasia Marked; Lymphocytes # (A) 1.1 k/uL (1.0-4.8); Lymphocytes % (A) 11 %; MCH 29.8 pg (25.0-35.0); MCHC 30.1 g/dL (31.0-37.0); MCV 99.1 fL (80.0-100.0); Macrocytosis Slight; Mean Platelet Volume 7.5; Monocytes # (A) 0.6 k/uL (0-1.0); Monocytes % (A) 6 %; Neutrophils # (A) 7.9 k/uL (1.3-7.7); Neutrophils % (A) 76 %; Platelet Count 197 k/uL (150-450); RBC 3.61 m/uL (3.80-5.40); RDW 16.4 % (11.5-15.5); WBC 10.4 k/uL (3.8-10.6)
[2019-05-26 07:50] LABS: Calcium 8.9 mg/dL (8.4-10.2); Potassium 4.7 mmol/L (3.5-5.1)
[2019-05-26] MEDS: LACTULOSE 20 GM/30 ML CUP PO SCH (08:02)
[2019-05-26] MEDS: CALCITRIOL 0.25 MCG CAP PO SCH (08:15)
[2019-05-26] MEDS: METOPROLOL TARTRATE 50 MG TAB PO SCH ×2 (08:15→17:24)
[2019-05-26] MEDS: FUROSEMIDE 10 MG/ML 4 ML VIAL IV SCH (08:15)
[2019-05-26] MEDS: ALLOPURINOL 100 MG TAB PO SCH (08:15)
[2019-05-26] MEDS: HEPARIN SODIUM,PORCINE 5,000 UNIT/ML 1 ML VIAL SQ SCH ×2 (08:16→21:35)
--- NOTE | 2019-05-26 09:51 | P.PN ---
Subjective Patient is seen in follow-up for acute kidney injury on chronic kidney disease. Renal function is stable. Dyspnea and edema has improved. Oral intake is fair. No vomiting or diarrhea. Vital signs are stable. General: The patient appeared well nourished and normally developed. HEENT: Head exam is unremarkable. Neck is without jugular venous distension. LUNGS: Lungs are clear to auscultation and percussion. Breath sounds decreased. HEART: Rate and Rhythm are regular. First and second heart sounds normal. No murmurs, rubs or gallops. ABDOMEN: Abdominal exam reveals normal bowel sounds. Non-tender and non- distended. No evidence of peritonitis. EXTREMITITES: 1+ edema. Chronic changes noted. Objective - Vital Signs Vital signs: Vital Signs Temp 98.2 F 05/26/19 07:41 Pulse 61 05/26/19 07:41 Resp 18 05/26/19 07:41 BP 118/72 05/26/19 07:41 Pulse Ox 92 L 05/26/19 07:41 Intake & Output 05/25/19 05/26/19 05/26/19 18:59 06:59 18:59 Intake Total 660 500 240 Output Total 1450 Balance -790 500 240 Weight 179.9 kg Intake: Oral 660 500 240 Output: Urine 1450 Other: Voiding Method Indwelling Catheter Indwelling Catheter Indwelling Catheter - Labs CBC & Chem 7: 05/26/19 06:44 05/26/19 06:44 Labs: Abnormal Lab Results - Last 24 Hours (Table) 05/26/19 05/26/19 Range/Units 06:44 06:44 RBC 3.61 L (3.80-5.40) m/uL Hgb 10.8 L (11.4-16.0) gm/dL MCHC 30.1 L (31.0-37.0) g/dL RDW 16.4 H (11.5-15.5) % Neutrophils # 7.9 H (1.3-7.7) k/uL Carbon Dioxide 31 H (22-30) mmol/L BUN 74 H (7-17) mg/dL Creatinine 3.17 H (0.52-1.04) mg/dL Assessment and Plan Plan: Assessment: 1. Mild acute kidney injury mostly prerenal secondary to diuresis. Creatinine 3.17 today. 2. Chronic kidney disease stage IV secondary to nephrosclerosis and cardiorenal syndrome with baseline creatinine near 3. 3. Chronic kidney disease mineral bone disease. 4. Dyspnea secondary to volume overload. 5. Anemia of chronic kidney disease. Hemoglobin at goal. 6. Diastolic CHF. Plan: Change IV Lasix to oral Demadex 40 mg twice daily. Low-salt diet. 60-70 ounces fluid restriction outpatient. Avoid nephrotoxins. Follow up outpatient in the next 2 weeks.
--- NOTE | 2019-05-26 10:48 | P.PN ---
Subjective Progress Note Date: 05/26/19 This is a 69-year-old -Citizen Of [place] female with past medical history significant for obesity, chronic chronic kidney disease, hypertension, chronic persistent atrial fibrillation, patient states she used to be on blood thinners because of history of GI bleeding as well as vaginal bleeding this had been discontinued. Patient also has history of sleep apnea for which she uses a BiPAP regularly. She lives at [facility], presented to the hospital with symptoms of progressively worsening shortness of breath, and she did notice some swelling in her feet and her hands. Chest x-ray showed mild interstitial phase cardiogenic pulmonary edema. EKG showed atrial fibrillation with a controlled ventricular response. I pressure on arrival here 124/70 with a heart rate in the 60s, 100% on room air. White blood cell count 12.3, hemoglobin 10.9, platelet count 221. Sodium 141, potassium 4.1, BUN 64, creatinine 2.9. Magnesium 2.2, troponins negative 3, BNP level 4650. The patient was initiated on IV Lasix in the emergency room, she is overall diuresing well, 2600 out night. 05/25 2019 Patient seen and examined this morning, breathing is improving, good urine output through the night last night. Creatinine 3.1 today, continues to be on IV Lasix. She was complaining of some bilateral knee pain through the night which she states is much improved this morning. Blood pressure 98/68 with a he art rate in the 60s, 96% on room air. White blood cell count 11.6, hemoglobin 10.5, platelet count 219. Sodium 141, potassium 4.3, BUN 72 and creatinine 3.1 today. 05/26/2019 Patient seen and examined this morning, diuresed again well through the night last night and continues to feel better. Breathing is stable. Blood pressure 118/70 with a heart rate of 60, 92% on room air. White blood cell count 10.4, hemoglobin 10.8, platelet count 197. Sodium 141, potassium 4.7, BUN 74 and creatinine 3.1. Objective - Vital Signs Vital signs: Vital Signs Temp 98.2 F 05/26/19 07:41 Pulse 61 05/26/19 07:41 Resp 18 05/26/19 07:41 BP 118/72 05/26/19 07:41 Pulse Ox 92 L 05/26/19 07:41 Intake & Output 05/25/19 05/26/19 05/26/19 18:59 06:59 18:59 Intake Total 660 500 240 Output Total 1450 Balance -790 500 240 Weight 179.9 kg Intake: Oral 660 500 240 Output: Urine 1450 Other: Voiding Method Indwelling Catheter Indwelling Catheter Indwelling Catheter - Exam PHYSICAL EXAMINATION: GENERAL: 69-year-old -Citizen Of [place] female in no acute distress at the time of my examination HEENT: Head is atraumatic, normocephalic. Pupils equal, round. Sclera anicteric. Conjunctiva are clear. Mucous membranes of the mouth are moist. Neck is supple. There is no elevated jugular venous pressure. No carotid bruit is heard. HEART EXAMINATION: Heart S1 and S2 irregularly irregular a systolic murmur is heard CHEST EXAMINATION: Lungs reveal improvement in air entry to bilateral bases. ABDOMEN: Soft, obese, nontender. Bowel sounds are heard. No organomegaly noted. EXTREMITIES:[ 2+ peripheral pulses with trace to 1+ evidence of peripheral edema, ulcerated area noted to the patient on the right leg NEUROLOGIC patient is awake, alert and oriented 3 . - Labs CBC & Chem 7: 05/26/19 06:44 05/26/19 06:44 Labs: Abnormal Lab Results - Last 24 Hours (Table) 05/26/19 05/26/19 Range/Units 06:44 06:44 RBC 3.61 L (3.80-5.40) m/uL Hgb 10.8 L (11.4-16.0) gm/dL MCHC 30.1 L (31.0-37.0) g/dL RDW 16.4 H (11.5-15.5) % Neutrophils # 7.9 H (1.3-7.7) k/uL Carbon Dioxide 31 H (22-30) mmol/L BUN 74 H (7-17) mg/dL Creatinine 3.17 H (0.52-1.04) mg/dL Assessment and Plan Plan: Assessment and plan #1 diastolic congestive heart failure acute on chronic. Patient had an echo cardiac gram with Doppler study performed in 2017 which revealed an ejection fraction of 50-55% #2 obesity #3 hypertension #4 diabetes #5 hyperlipidemia #6 chronic kidney disease #7 sleep apnea #8 chronic atrial fibrillation, not a candidate for anticoagulation because of history of GI and vaginal bleeding Plan Echocardiogram with Doppler study was performed which revealed an ejection f raction of 50-55%, we'll continue with current dose of IV Lasix, continue to monitor intake and output along with daily weights and daily lytes BUN and creatinine. DNP note has been reviewed, I agree with a documented findings and plan of care. Patient was seen and examined.
[2019-05-26] MEDS: FERROUS SULFATE 325 MG TAB PO SCH (11:19)
[2019-05-26] MEDS: FOLIC ACID 1 MG TAB PO SCH (11:19)
[2019-05-26] MEDS: ASPIRIN 81 MG PO SCH (11:19)
[2019-05-26] MEDS: CHOLECALCIFEROL 1,000 UNIT TAB PO SCH (11:19)
[2019-05-26] MEDS: POTASSIUM CHLORIDE ER 20 MEQ TAB.ER PO SCH (11:19)
[2019-05-26 15:12] VITALS: RESP 16
[2019-05-26] MEDS: SENNOSIDES 8.6 MG TAB PO SCH (21:34)
[2019-05-26] MEDS: ATORVASTATIN 40 MG TAB PO SCH (21:35)
[2019-05-26] MEDS: TORSEMIDE 20 MG TAB PO SCH (21:35)
--- NOTE | 2019-05-26 23:47 | P.PN ---
Progress Note - Text Progress Note Date: 05/26/19 Interval history: Patient admitted with CHF exacerbation. Had been on IV Lasix. Also and acute on chronic kidney disease. Today-feeling better. Was on IV Lasix. Seen by nephrology. Switched over to by mouth Demadex. Patient is tolerating a diet. Her nausea vomiting. Had a bowel movement. Breathing is better. Patient's long-term resident of [facility]. Review of systems: Was done for constitutional, cardiovascular, GI, pulmonary. relevant finding as above Active Medications Acetaminophen (Tylenol Tab) 650 mg PO Q4H PRN PRN Reason: mild pain/fever Last Admin: 05/25/19 06:34 Dose: 650 mg Documented by: Albuterol/Ipratropium (Duoneb 0.5 Mg-3 Mg/3 Ml Soln) 3 ml INHALATION RT-QID [facility] Last Admin: 05/26/19 19:09 Dose: 3 ml Documented by: Albuterol/Ipratropium (Duoneb 0.5 Mg-3 Mg/3 Ml Soln) 3 ml INHALATION RT-Q2H PRN PRN Reason: Shortness Of Breath Or Wheezing Allopurinol (Zyloprim) 100 mg PO DAILY [facility] Last Admin: 05/26/19 08:15 Dose: 100 mg Documented by: Alprazolam (Xanax) 0.25 mg PO TID PRN PRN Reason: Anxiety Aspirin (Aspirin) 81 mg PO DAILY@1200 [facility] Last Admin: 05/26/19 11:19 Dose: 81 mg Documented by: Atorvastatin Calcium (Lipitor) 40 mg PO HS [facility] Last Admin: 05/26/19 21:35 Dose: 40 mg Documented by: Bisacodyl (Dulcolax) 10 mg RECTAL DAILY PRN PRN Reason: Constipation Last Admin: 05/25/19 23:42 Dose: 10 mg Documented by: Calcitriol (Rocaltrol) 0.25 mcg PO DAILY@0800 [facility] Last Admin: 05/26/19 08:15 Dose: 0.25 mcg Documented by: Calcium Acetate (Phoslo) 667 mg PO AC-BRKFST [facility] Last Admin: 05/26/19 06:30 Dose: 667 mg Documented by: Cholecalciferol (Vitamin D3 (25 Mcg = 1000 Iu)) 2,000 unit PO DAILY@1200 [facility] Last Admin: 05/26/19 11:19 Dose: 2,000 unit Documented by: Darbepoetin Juan Jose (Aranesp) 60 mcg SQ TH [facility] Ferrous Sulfate (Feosol) 325 mg PO DAILY@1200 [facility] Last Admin: 05/26/19 11:19 Dose: 325 mg Documented by: Folic Acid (Folic Acid) 1 mg PO DAILY@1200 [facility] Last Admin: 05/26/19 11:19 Dose: 1 mg Documented by: Heparin Sodium (Porcine) (Heparin) 5,000 unit SQ Q12HR [facility] Last Admin: 05/26/19 21:35 Dose: 5,000 unit Documented by: Lactulose (Cephulac) 20 gm PO DAILY [facility] Last Admin: 05/26/19 08:02 Dose: Not Given Documented by: Magnesium Hydroxide (Milk Of Magnesia) 2,400 mg PO DAILY PRN PRN Reason: Constipation Metoprolol Tartrate (Lopressor) 100 mg PO BID@0800,1700 [facility] Last Admin: 05/26/19 17:24 Dose: 100 mg Documented by: Linaclotide [Linzess (] 145 Mcg) 145 mcg PO DAILY [facility] Last Admin: 05/26/19 08:02 Dose: Not Given Documented by: Pantoprazole Sodium (Protonix) 40 mg PO AC-BRKFST [facility] Last Admin: 05/26/19 06:30 Dose: 40 mg Documented by: Potassium Chloride (K-Dur 20) 20 meq PO DAILY@1200 [facility] Last Admin: 05/26/19 11:19 Dose: 20 meq Documented by: Senna (Senokot) 8.6 mg PO HS [facility] Last Admin: 05/26/19 21:34 Dose: 8.6 mg Documented by: Torsemide (Demadex) 40 mg PO BID [facility] Last Admin: 05/26/19 21:35 Dose: 40 mg Documented by: On examination: VITAL SIGNS: 98.2, 61, 18, 118/72, 92% room air GENERAL APPEARANCE: BMI 66. Lying in bed, not in distress. HEENT: Normal external appearance of nose and ear. Oral cavity normal EYES: Pupils equal. Conjunctiva normal. NECK: JVD unable to assess. Mass not palpable. RESPIRATORY: Respiratory effort normal. Lungs distant breath sounds CARDIOVASCULAR: Heart sounds muffled,. Minimal edema. ABDOMEN: Soft. Liver and spleen not palpable. No tenderness. No mass palpable. PSYCHIATRY: Alert and oriented x3. Mood and affect normal. INVESTIGATIONS, reviewed in the clinical context: White count 10.4 hemoglobin 10.8 platelets 197 potassium 4.7 Bun 74 creatinine 3.17 2-D echocardiogram-difficult study. EF 50-55% Assessment: -Acute on chronic congestive heart failure from diastolic dysfunction EF 50-55% -Morbid obesity BMI 66 -Chronic kidney disease stage IV secondary to nephrosclerosis and cardiorenal syndrome -Chronic kidney disease, minimal bone disease -Anemia of chronic kidney disease -Persistent atrial fibrillation -Fatty liver -COPD in an ex-smoker -Primary osteoarthritis multiple joints -Obstructive sleep apnea uses CPAP -Chronic gout -Chronic hypoxic respiratory failure -Chronic medical debility uses a lift and a wheelchair Plan: Care was discussed in detail with the patient. Seen by nephrology earlier today. Switched over to oral Lasix. We'll repeat labs in the morning. Hopefully can be discharged to [facility] tomorrow.
[2019-05-27] MEDS: PANTOPRAZOLE 40 MG TABLET PO SCH (06:29)
[2019-05-27] MEDS: CALCIUM ACETATE 667 MG CAP PO SCH (06:29)
[2019-05-27 07:02] LABS: Calcium 9.3 mg/dL (8.4-10.2); Magnesium 2.7 mg/dL (1.6-2.3); Potassium 4.6 mmol/L (3.5-5.1)
[2019-05-27 08:40] VITALS: TEMP 98.1
[2019-05-27] MEDS: IPRATROPIUM-ALBUTEROL 3 ML NEB INHALATION SCH ×3 (08:44→15:16)
[2019-05-27] MEDS: METOPROLOL TARTRATE 50 MG TAB PO SCH (08:48)
[2019-05-27] MEDS: CALCITRIOL 0.25 MCG CAP PO SCH (08:48)
[2019-05-27] MEDS: ALLOPURINOL 100 MG TAB PO SCH (08:48)
[2019-05-27] MEDS: HEPARIN SODIUM,PORCINE 5,000 UNIT/ML 1 ML VIAL SQ SCH (08:48)
[2019-05-27] MEDS: TORSEMIDE 20 MG TAB PO SCH (08:49)
[2019-05-27] MEDS: LACTULOSE 20 GM/30 ML CUP PO SCH (08:50)
--- NOTE | 2019-05-27 11:17 | P.PN ---
Subjective Patient is seen in follow-up for acute kidney injury on chronic kidney disease. Renal function is stable. Dyspnea and edema have improved. Oral intake is fair. No vomiting or diarrhea. Vital signs are stable. General: The patient appeared well nourished and normally developed. HEENT: Head exam is unremarkable. Neck is without jugular venous distension. LUNGS: Lungs are clear to auscultation and percussion. Breath sounds decreased. HEART: Rate and Rhythm are regular. First and second heart sounds normal. No murmurs, rubs or gallops. ABDOMEN: Abdominal exam reveals normal bowel sounds. Non-tender and non- distended. No evidence of peritonitis. EXTREMITITES: 1+ edema. Chronic changes noted. Objective - Vital Signs Vital signs: Vital Signs Temp 98.1 F 05/27/19 08:00 Pulse 70 05/27/19 08:56 Resp 16 05/27/19 08:00 BP 118/74 05/27/19 08:00 Pulse Ox 97 05/27/19 08:00 Intake & Output 05/26/19 05/27/19 05/27/19 18:59 06:59 18:59 Intake Total 1202 500 420 Output Total 1700 1150 Balance -498 500 -730 Weight 180.2 kg Intake: Oral 1202 500 420 Output: Urine 1700 1150 Other: Voiding Method Indwelling Catheter Bedside Commode Indwelling Catheter # Voids 1 # Bowel Movements 1 - Labs CBC & Chem 7: 05/26/19 06:44 05/27/19 06:13 Labs: Abnormal Lab Results - Last 24 Hours (Table) 05/27/19 Range/Units 06:13 Carbon Dioxide 32 H (22-30) mmol/L BUN 70 H (7-17) mg/dL Creatinine 3.21 H (0.52-1.04) mg/dL Magnesium 2.7 H (1.6-2.3) mg/dL Assessment and Plan Plan: Assessment: 1. Mild acute kidney injury mostly prerenal secondary to diuresis. Creatinine 3.21 today. 2. Chronic kidney disease stage IV secondary to nephrosclerosis and cardiorenal syndrome with baseline creatinine near 3. 3. Chronic kidney disease mineral bone disease maintained on PhosLo and calcitriol. 4. Dyspnea secondary to volume overload. Better. 5. Anemia of chronic kidney disease. Hemoglobin at goal. 6. Diastolic CHF. Plan: Maintain Demadex 40 mg twice daily. Low-salt diet. 60-70 ounces fluid restriction outpatient. Avoid nephrotoxins. Follow up outpatient in the next 2 weeks.
[2019-05-27 11:24] VITALS: BP 125/54
[2019-05-27] MEDS: FOLIC ACID 1 MG TAB PO SCH (11:24)
[2019-05-27] MEDS: ASPIRIN 81 MG PO SCH (11:24)
[2019-05-27] MEDS: CHOLECALCIFEROL 1,000 UNIT TAB PO SCH (11:24)
[2019-05-27] MEDS: POTASSIUM CHLORIDE ER 20 MEQ TAB.ER PO SCH (11:24)
[2019-05-27] MEDS: FERROUS SULFATE 325 MG TAB PO SCH (11:24)
--- NOTE | 2019-05-27 11:40 | XR ---
EXAMINATION TYPE: XR chest 1V portable DATE OF EXAM: 05/27/2019 COMPARISON: Prior chest x-ray 05/23/2019 HISTORY: Congestive heart failure and abnormal chest x-ray TECHNIQUE: Single frontal view of the chest is obtained. FINDINGS: Technique is somewhat limited. Patient is rotated. There are overlying cardiac leads. Hear t remains enlarged. The aorta is dense. No pneumothorax or evident effusion. Left lung base not well seen. Central vascularity appears less prominently. Pulmonary artery may be enlarged. Arthropathy not ed shoulders. IMPRESSION: There may be some improvement in patient's volume status, there are differences in techn ique. Persistent cardiomegaly, consider possible pulmonary artery hypertension.
--- NOTE | 2019-05-27 12:20 | P.DS ---
Providers Date of admission: 05/23/19 18:05 Expected date of discharge: 05/27/19 Attending physician: Leonardo Stephens Consults: 05/23/19 18:05 Consult Physician Routine Consulting Provider: Darrin Banegas Consult Reason/Comments: CHF Do you want consulting provider notified?: Yes Consult Physician Routine Consulting Provider: Natasha Vaughan Consult Reason/Comments: Renal failure syndrome Do you want consulting provider notified?: Yes Primary care physician: Jake Rodriguez Hospital Course: Hospital course: Patient admitted with CHF exacerbation. Had been on IV Lasix. Also and acute on chronic kidney disease. Doing much better by the time of discharge. Tolerating a diet. Breathing much improved. Consultations: Dr. Eduardo from nephrology Dr. Marti Banegas from cardiology On examination: VITAL SIGNS: 70, 16, 125/654, 98% room air GENERAL APPEARANCE: BMI 66. Lying in bed, comfortable. HEENT: Normal external appearance of nose and ear. Oral cavity normal EYES: Pupils equal. Conjunctiva normal. NECK: JVD unable to assess. Mass not palpable. RESPIRATORY: Respiratory effort normal. Lungs distant breath sounds CARDIOVASCULAR: Heart sounds muffled,. Minimal edema. ABDOMEN: Soft. Liver and spleen not palpable. No tenderness. No mass palpable. PSYCHIATRY: Alert and oriented x3. Mood and affect normal. INVESTIGATIONS, reviewed in the clinical context: White count 10.4 hemoglobin 10.8 platelets 197 Potassium 4.6 170 creatinine 3.21 2-D echocardiogram-difficult study. EF 50-55% Assessment: -Acute on chronic congestive heart failure from diastolic dysfunction EF 50-55% -Morbid obesity BMI 66 -Chronic kidney disease stage IV secondary to nephrosclerosis and cardiorenal syndrome -Chronic kidney disease, minimal bone disease -Anemia of chronic kidney disease -Persistent atrial fibrillation -Fatty liver -COPD in an ex-smoker -Primary osteoarthritis multiple joints -Obstructive sleep apnea uses CPAP -Chronic gout -Chronic hypoxic respiratory failure, from COPD -Chronic medical debility uses a lift and a wheelchair Disposition: [facility] Patient Condition at Discharge: Stable Plan - Discharge Summary Discharge Rx Participant: No New Discharge Prescriptions: No Action Folic Acid 1 mg PO DAILY@1200 Cholecalciferol [Vitamin D3 (25 Mcg = 1000 Iu)] 2,000 unit PO DAILY@1200 Bisacodyl [Dulcolax] 10 mg RECTAL DAILY PRN PRN Reason: Constipation Ferrous Sulfate [Iron (65 MG Elemental)] 325 mg PO DAILY@1200 Potassium Chloride [K-Tab ER] 20 meq PO DAILY@1200 Atorvastatin [Lipitor] 40 mg PO HS Magnesium Hydroxide [Milk of Magnesia] 2,400 mg PO DAILY PRN PRN Reason: Constipation Epoetin Juan Jose [Procrit] 20,000 unit SQ TH Linaclotide [Linzess] 145 mcg PO DAILY Calcium Acetate [PhosLo] 667 mg PO DAILY Allopurinol [Zyloprim] 100 mg PO DAILY #0 tab Sennosides [Senna] 8.6 - 17.2 mg PO HS PRN PRN Reason: Constipation Lactulose 20 mg PO DAILY Calcitriol 0.25 mcg PO DAILY@0800 Torsemide [Demadex] 100 mg PO DAILY Na Phos,M-B/Na Phos,Di-Ba [Fleet Adult] 133 ml RECTAL ONCE PRN PRN Reason: Constipation Metoprolol Tartrate [Lopressor] 100 mg PO BID@0800,1700 Isosorbide Mononitrate ER [Imdur] 30 mg PO DAILY@1200 Ipratropium-Albuterol Nebulize [Duoneb 0.5 mg-3 mg/3 ml Soln] 3 ml INHALATION RT-QID Aspirin 81 mg PO DAILY@1200 Albuterol Inhaler [Ventolin Hfa Inhaler] 1 - 2 puff INHALATION RT-Q4H PRN PRN Reason: Shortness Of Breath Acetaminophen Tab [Tylenol Tab] 650 mg PO Q4H Co Q-10 60mg 60 mg PO DAILY Discharge Medication List Folic Acid 1 mg PO DAILY@1200 12/19/16 [History] Cholecalciferol [Vitamin D3 (25 Mcg = 1000 Iu)] 2,000 unit PO DAILY@1200 12/30/16 [History] Bisacodyl [Dulcolax] 10 mg RECTAL DAILY PRN 02/23/17 [History] Ferrous Sulfate [Iron (65 MG Elemental)] 325 mg PO DAILY@1200 02/23/17 [History] Atorvastatin [Lipitor] 40 mg PO HS 06/25/17 [History] Magnesium Hydroxide [Milk of Magnesia] 2,400 mg PO DAILY PRN 06/25/17 [History] Potassium Chloride [K-Tab ER] 20 meq PO DAILY@1200 06/25/17 [History] Calcium Acetate [PhosLo] 667 mg PO DAILY 08/23/17 [History] Epoetin Juan Jose [Procrit] 20,000 unit SQ TH 08/23/17 [History] Linaclotide [Linzess] 145 mcg PO DAILY 08/23/17 [History] Allopurinol [Zyloprim] 100 mg PO DAILY #0 tab 08/24/17 [Rx] Calcitriol 0.25 mcg PO DAILY@0800 11/20/18 [History] Lactulose 20 mg PO DAILY 11/20/18 [History] Sennosides [Senna] 8.6 - 17.2 mg PO HS PRN 11/20/18 [History] Torsemide [Demadex] 100 mg PO DAILY 11/20/18 [History] Acetaminophen Tab [Tylenol Tab] 650 mg PO Q4H 05/23/19 [History] Albuterol Inhaler [Ventolin Hfa Inhaler] 1 - 2 puff INHALATION RT-Q4H PRN 05/23/19 [History] Aspirin 81 mg PO DAILY@1200 05/23/19 [History] Co Q-10 60mg 60 mg PO DAILY 05/23/19 [History] Ipratropium-Albuterol Nebulize [Duoneb 0.5 mg-3 mg/3 ml Soln] 3 ml INHALATION RT-QID 05/23/19 [History] Isosorbide Mononitrate ER [Imdur] 30 mg PO DAILY@1200 05/23/19 [History] Metoprolol Tartrate [Lopressor] 100 mg PO BID@0800,1700 05/23/19 [History] Na Phos,M-B/Na Phos,Di-Ba [Fleet Adult] 133 ml RECTAL ONCE PRN 05/23/19 [History] Follow up Appointment(s)/Referral(s): Jake Rodriguez MD [Primary Care Provider] - 1-2 days La Fuller [NON-STAFF] - As Needed George Eduardo DO [STAFF PHYSICIAN] - 2 Weeks Activity/Diet/Wound Care/Special Instructions: 60 ounces of fluid restriction daily BMP in 7 days
--- NOTE | 2019-05-27 12:59 | P.PN ---
Subjective Progress Note Date: 05/27/19 This is a 69-year-old -[place] female with past medical history significant for obesity, chronic chronic kidney disease, hypertension, chronic persistent atrial fibrillation, patient states she used to be on blood thinners because of history of GI bleeding as well as vaginal bleeding this had been discontinued. Patient also has history of sleep apnea for which she uses a BiPAP regularly. She lives at [facility], presented to the hospital with symptoms of progressively worsening shortness of breath, and she did notice some swelling in her feet and her hands. Chest x-ray showed mild interstitial phase cardiogenic pulmonary edema. EKG showed atrial fibrillation with a controlled ventricular response. I pressure on arrival here 124/70 with a heart rate in the 60s, 100% on room air. White blood cell count 12.3, hemoglobin 10.9, platelet count 221. Sodium 141, potassium 4.1, BUN 64, creatinine 2.9. Magnesium 2.2, troponins negative 3, BNP level 4650. The patient was initiated on IV Lasix in the emergency room, she is overall diuresing well, 2600 out night. 05/25 2019 Patient seen and examined this morning, breathing is improving, good urine output through the night last night. Creatinine 3.1 today, continues to be on IV Lasix. She was complaining of some bilateral knee pain through the night which she states is much improved this morning. Blood pressure 98/68 with a he art rate in the 60s, 96% on room air. White blood cell count 11.6, hemoglobin 10.5, platelet count 219. Sodium 141, potassium 4.3, BUN 72 and creatinine 3.1 today. 05/26/2019 Patient seen and examined this morning, diuresed again well through the night last night and continues to feel better. Breathing is stable. Blood pressure 118/70 with a heart rate of 60, 92% on room air. White blood cell count 10.4, hemoglobin 10.8, platelet count 197. Sodium 141, potassium 4.7, BUN 74 and creatinine 3.1. 05/27/2019 Patient seen and examined this morning, continues to diurese well again through the night last night. Feeling significantly better overall. Her weight is down. Sodium 140, potassium 4.6, BUN 70 and creatinine 3.2 today. Patient's IV Lasix has been discontinued and she is currently on oral diuretics. Objective - Vital Signs Vital signs: Vital Signs Temp 98.1 F 05/27/19 08:00 Pulse 52 L 05/27/19 11:53 Resp 16 05/27/19 11:22 BP 125/54 05/27/19 11:22 Pulse Ox 98 05/27/19 11:22 Intake & Output 05/26/19 05/27/19 05/27/19 18:59 06:59 18:59 Intake Total 1202 500 420 Output Total 1700 1150 Balance -498 500 -730 Weight 180.2 kg Intake: Oral 1202 500 420 Output: Urine 1700 1150 Other: Voiding Method Indwelling Catheter Bedside Commode Indwelling Catheter # Voids 1 # Bowel Movements 1 - Exam PHYSICAL EXAMINATION: GENERAL: 69-year-old -[place]aj[place] female in no acute distress at the time of my examination HEENT: Head is atraumatic, normocephalic. Pupils equal, round. Sclera ani cteric. Conjunctiva are clear. Mucous membranes of the mouth are moist. Neck is supple. There is no elevated jugular venous pressure. No carotid bruit is heard. HEART EXAMINATION: Heart S1 and S2 irregularly irregular a systolic murmur is heard CHEST EXAMINATION: Lungs reveal improvement in air entry to bilateral bases. ABDOMEN: Soft, obese, nontender. Bowel sounds are heard. No organomegaly noted. EXTREMITIES:[ 2+ peripheral pulses with trace to 1+ evidence of peripheral edema, ulcerated area noted to the patient on the right leg NEUROLOGIC patient is awake, alert and oriented 3 . - Labs CBC & Chem 7: 05/26/19 06:44 05/27/19 06:13 Labs: Abnormal Lab Results - Last 24 Hours (Table) 05/27/19 Range/Units 06:13 Carbon Dioxide 32 H (22-30) mmol/L BUN 70 H (7-17) mg/dL Creatinine 3.21 H (0.52-1.04) mg/dL Magnesium 2.7 H (1.6-2.3) mg/dL Assessment and Plan Plan: Assessment and plan #1 diastolic congestive heart failure acute on chronic. Patient had an echo cardiac gram with Doppler study performed in 2017 which revealed an ejection fraction of 50-55% #2 obesity #3 hypertension #4 diabetes #5 hyperlipidemia #6 chronic kidney disease #7 sleep apnea #8 chronic atrial fibrillation, not a candidate for anticoagulation because of history of GI and vaginal bleeding Plan Echocardiogram with Doppler study was performed which revealed an ejection fraction of 50-55%, IV Lasix has been discontinued and patient is currently on by mouth Demadex. From Cardiology perspective she may be able to be discharged home today. We'll make her a follow-up appointment in the office post discharge. DNP note has been reviewed, I agree with a documented findings and plan of care. Patient was seen and examined.
[2019-05-27 15:25] VITALS: PULSE 72
[2019-05-29] MEDS ORDERED: DARBEPOETIN ALFA 60 MCG/0.3 ML SYRINGE SQ SCH (09:00)
== END 2019-05-27 15:41 | DRG 291 ==
LOC: EC 15:36 → 3SCARD 18:05
PROVIDERS: ADMIT Hospitalist; ATTEND Hospitalist
DX: I13.0 Hypertensive heart and chronic kidney disease with heart failure and stage 1 through stage 4 chronic kidney disease, or unspecified chronic kidney disease (principal); I50.33 Acute on chronic diastolic (congestive) heart failure; Z68.44 Body mass index [BMI] 60.0-69.9, adult; J96.11 Chronic respiratory failure with hypoxia; N17.9 Acute kidney failure, unspecified; N18.4 Chronic kidney disease, stage 4 (severe); E87.3 Alkalosis; E66.01 Morbid (severe) obesity due to excess calories; E88.89 Other specified metabolic disorders; G47.33 Obstructive sleep apnea (adult) (pediatric); M15.9 Polyosteoarthritis, unspecified; M1A.9XX0 Chronic gout, unspecified, without tophus (tophi); I48.2 Chronic atrial fibrillation; D63.1 Anemia in chronic kidney disease; E11.22 Type 2 diabetes mellitus with diabetic chronic kidney disease; E78.5 Hyperlipidemia, unspecified; J44.9 Chronic obstructive pulmonary disease, unspecified; K76.0 Fatty (change of) liver, not elsewhere classified; T50.2X5A Adverse effect of carbonic-anhydrase inhibitors, benzothiadiazides and other diuretics, initial encounter; Z87.891 Personal history of nicotine dependence; Z99.3 Dependence on wheelchair; Z99.81 Dependence on supplemental oxygen; Z79.82 Long term (current) use of aspirin; Z79.899 Other long term (current) drug therapy; Z87.01 Personal history of pneumonia (recurrent); Z82.49 Family history of ischemic heart disease and other diseases of the circulatory system; Z80.0 Family history of malignant neoplasm of digestive organs; Z88.8 Allergy status to other drugs, medicaments and biological substances; Z91.041 Radiographic dye allergy status
CPT/HCPCS: 36415; 71045; 71046; 80048; 80053; 81001; 82550; 83735; 83880; 84484; 85025; 85610; 85730; 93005; 93306; 94640; 94760; 96365; 96375; 99285

== ENCOUNTER 2019-10-28 11:51 | Emergency (ER) | payer MEDICARE, OTHER ==
[2019-10-28 12:13] VITALS: RESP 18; TEMP 97.5
[2019-10-28] MEDS ORDERED: SODIUM CHLORIDE 0.9% 500 ML 500 ML IV STA (12:24)
[2019-10-28 13:07] LABS: Anisocytosis Slight; Basophils % (A) 0 %; Eosinophils # (A) 0.8 k/uL (0-0.7); Eosinophils % (A) 5 %; HCT 31.9 % (34.0-46.0); Hypochromasia Marked; Lymphocytes # (A) 1.2 k/uL (1.0-4.8); Lymphocytes % (A) 8 %; MCH 29.6 pg (25.0-35.0); MCHC 31.3 g/dL (31.0-37.0); MCV 94.7 fL (80.0-100.0); Mean Platelet Volume 7.7; Monocytes # (A) 0.7 k/uL (0-1.0); Monocytes % (A) 4 %; Neutrophils # (A) 12.7 k/uL (1.3-7.7); Neutrophils % (A) 82 %; Platelet Count 230 k/uL (150-450); RBC 3.37 m/uL (3.80-5.40); RDW 17.2 % (11.5-15.5); WBC 15.5 k/uL (3.8-10.6)
[2019-10-28 13:17] LABS: Albumin 3.2 g/dL (3.5-5.0); Calcium 9.5 mg/dL (8.4-10.2); Potassium 4.6 mmol/L (3.5-5.1); Total Bilirubin 0.6 mg/dL (0.2-1.3); Total Protein 7.1 g/dL (6.3-8.2)
--- NOTE | 2019-10-28 13:50 | ED ---
General Adult HPI - General Chief complaint: Vaginal Bleeding Stated complaint: Vaginal Bleeding Source: EMS Mode of arrival: EMS Limitations: no limitations - History of Present Illness Initial comments: 69-year-old female with a past medical history of hyperlipidemia, hypertension renal disease, heart failure, atrial fibrillation, asthma presents to the emergency center from [facility] for a chief complaint of vaginal bleeding. Patient has had vaginal bleeding for about 2 weeks. Primary care was unable to get patient into [facility] so sent her to the emergency department. Patient has had vaginal bleeding earlier this year and was taken off blood thinner, vaginal bleeding then resolved. However as patient is not on any blood thinners at this time it was recommended she come for further evaluation.Patient has no other complaints at this time including shortness of breath, chest pain, abdominal pain, nausea or vomiting, headache, or visual changes. - Related Data Home Medications Medication Instructions Recorded Confirmed Folic Acid 1 mg PO DAILY@1200 12/19/16 10/28/19 Cholecalciferol [Vitamin D3 (25 2,000 unit PO DAILY@1700 12/30/16 10/28/19 Mcg = 1000 Iu)] Bisacodyl [Dulcolax] 10 mg RECTAL DAILY PRN 02/23/17 10/28/19 Ferrous Sulfate [Iron (65 MG 325 mg PO DAILY@1200 02/23/17 10/28/19 Elemental)] Atorvastatin [Lipitor] 40 mg PO HS@2100 06/25/17 10/28/19 Magnesium Hydroxide [Milk of 2,400 mg PO DAILY PRN 06/25/17 10/28/19 Magnesia] Calcium Acetate [PhosLo] 667 mg PO DAILY@0800 08/23/17 10/28/19 Epoetin Juan Jose [Procrit] 20,000 unit SQ TH 08/23/17 10/28/19 Linaclotide [Linzess] 145 mcg PO DAILY@0800 08/23/17 10/28/19 Calcitriol 0.25 mcg PO DAILY@0800 11/20/18 10/28/19 Lactulose 20 mg PO DAILY PRN 11/20/18 10/28/19 Sennosides [Senna] 8.6 - 17.2 mg PO HS PRN 11/20/18 10/28/19 Acetaminophen Tab [Tylenol] 650 mg PO Q4H PRN 05/23/19 10/28/19 Albuterol Inhaler [Ventolin Hfa 1 - 2 puff INHALATION RT-Q4H PRN 05/23/19 10/28/19 Inhaler] Aspirin 81 mg PO DAILY@1200 05/23/19 10/28/19 Co Q-10 60mg 60 mg PO DAILY@1700 05/23/19 10/28/19 Ipratropium-Albuterol Nebulize 3 ml INHALATION RT-QID 05/23/19 10/28/19 [Duoneb 0.5 mg-3 mg/3 ml Soln] Isosorbide Mononitrate ER [Imdur] 30 mg PO DAILY@0800 05/23/19 10/28/19 Na Phos,M-B/Na Phos,Di-Ba [Fleet 133 ml RECTAL DAILY PRN 05/23/19 10/28/19 Adult] Acetaminophen-Codeine 300-30mg 1 tab PO TID PRN 10/28/19 10/28/19 [Tylenol w/codeine #3] Allopurinol [Zyloprim] 100 mg PO DAILY@0800 10/28/19 10/28/19 Hydrocortisone Cream 1 applic TOPICAL BID 10/28/19 10/28/19 [Hydrocortisone 2.5% Cream] Metoprolol Tartrate [Lopressor] 50 mg PO BID@0800,1700 10/28/19 10/28/19 Potassium Chloride [K-Tab ER] 20 meq PO DAILY@1200 10/28/19 10/28/19 Torsemide [Demadex] 40 mg PO BID@0800,1700 10/28/19 10/28/19 Allergies Allergy/AdvReac Type Severity Reaction Status Date / Time Iodinated Contrast Media AdvReac SEE COMMENT Verified 10/28/19 12:24 [Iodinated Contrast- Oral and IV Dye] sodium phosphate AdvReac SEE COMMENT Verified 10/28/19 12:24 [From Fleet Enema] NEPHROTOXINS Allergy SEE COMMENT Uncoded 11/25/18 12:54 Review of Systems ROS Statement: Those systems with pertinent positive or pertinent negative responses have been documented in the HPI. ROS Other: All systems not noted in ROS Statement are negative. Past Medical History Past Medical History: Atrial Fibrillation, Asthma, Heart Failure, Hyperlipidemia, Hypertension, Osteoarthritis (OA), Pneumonia, Renal Disease, Sleep Apnea/CPAP/BIPAP Additional Past Medical History / Comment(s): BRUNILDA with CPAP, gout bilateral legs/feet, arthritis multiple joints, sinus problems, past left lower leg cellulitis and wound, UTIs. Morbid obesity, 02 2 LITERS N/C, gastritis,"in my 20's i had ulcers", anemia "has had blood transfusion, and iron infusions" History of Any Multi-Drug Resistant Organisms: Other MDRO Past Surgical History: Section, Ear Surgery Additional Past Surgical History / Comment(s): Debridement bilateral pedal toenails, colonoscopy-normal, L ear benign tumor removed, x 2. pt currently resides at [facility] Past Anesthesia/Blood Transfusion Reactions: No Reported Reaction Additional Past Anesthesia/Blood Transfusion Reaction / Comment(s): blood transfusions- no reaction Past Psychological History: No Psychological Hx Reported Smoking Status: Former smoker Past Alcohol Use History: Rare Past Drug Use History: None Reported - Past Family History Mother Family Medical History: Cancer Additional Family Medical History / Comment(s): Mother of colon cancer at the age of 54 yrs. Father Family Medical History: Myocardial Infarction ([place]) Additional Family Medical History / Comment(s): Father of a massive [place] at the age of 60 yrs. General Exam Limitations: no limitations General appearance: alert, in no apparent distress Head exam: Present: atraumatic, normocephalic, normal inspection Eye exam: Present: normal appearance, PERRL, EOMI. Absent: scleral icterus, conjunctival injection ENT exam: Present: normal exam, mucous membranes moist Neck exam: Present: normal inspection, full ROM. Absent: tenderness, meningismus, lymphadenopathy Respiratory exam: Present: normal lung sounds bilaterally. Absent: respiratory distress, wheezes, rales, rhonchi, stridor Cardiovascular Exam: Present: regular rate, normal rhythm, normal heart sounds. Absent: systolic murmur, diastolic murmur, rubs, gallop, clicks GI/Abdominal exam: Present: soft, normal bowel sounds. Absent: distended, tenderness, guarding, rebound, rigid External exam: Present: normal external exam. Absent: erythema, swelling, lesions, lacerations, ecchymosis Speculum exam: Present: vaginal bleeding (Vaginal bleeding noted from cervix. Large clot passed). Absent: normal speculum exam, erythema, vaginal discharge, cervical discharge, foreign body, tissue, laceration Course Vital Signs 10/28/19 12:02 Temperature 97.5 F L Pulse Rate 60 Respiratory 18 Rate Blood Pressure 120/60 O2 Sat by Pulse 96 Oximetry Medical Decision Making - Medical Decision Making CBC shows a white blood cell count 15.5. This is not abnormal for patient. Hemoglobin is 10.0 which is chronic. Creatinine of 2.79 is also chronic. The vehicle exam revealed blood clot from the vaginal opening however only mild bleeding on exam. Ultrasound shows abnormal thickening of the endometrium. Differential includes hyperplasia but neoplasm cannot be excluded. This was limited given patient's body habitus. I contacted Dr. Angeles about this to states that she would like to come to the emergency department and do biopsy well patient is here as it is difficult for her to follow up outpatient. Dr. Mendoza saw patient in the ER and did endometrial biopsy. This was personally taken down to the lab by Delaney SWANN and requisition form was completed for cytology. Dr. Mendoza recommends patient follow up with her outpatient next week. - Lab Data Result diagrams: 10/28/19 12:42 10/28/19 12:42 Lab Results 10/28/19 10/28/19 Range/Units 12:42 12:42 WBC 15.5 H (3.8-10.6) k/uL RBC 3.37 L (3.80-5.40) m/uL Hgb 10.0 L (11.4-16.0) gm/dL Hct 31.9 L (34.0-46.0) % MCV 94.7 (80.0-100.0) fL MCH 29.6 (25.0-35.0) pg MCHC 31.3 (31.0-37.0) g/dL RDW 17.2 H (11.5-15.5) % Plt Count 230 (150-450) k/uL Neutrophils % 82 % Lymphocytes % 8 % Monocytes % 4 % Eosinophils % 5 % Basophils % 0 % Neutrophils # 12.7 H (1.3-7.7) k/uL Lymphocytes # 1.2 (1.0-4.8) k/uL Monocytes # 0.7 (0-1.0) k/uL Eosinophils # 0.8 H (0-0.7) k/uL Basophils # 0.0 (0-0.2) k/uL Hypochromasia Marked Anisocytosis Slight Sodium 141 (137-145) mmol/L Potassium 4.6 (3.5-5.1) mmol/L Chloride 103 (98-107) mmol/L Carbon Dioxide 30 (22-30) mmol/L Anion Gap 8 mmol/L BUN 70 H (7-17) mg/dL Creatinine 2.79 H (0.52-1.04) mg/dL Est GFR (CKD-EPI)AfAm 19 (>60 ml/min/1.73 sqM) Est GFR (CKD-EPI)NonAf 17 (>60 ml/min/1.73 sqM) Glucose 133 H (74-99) mg/dL Calcium 9.5 (8.4-10.2) mg/dL Total Bilirubin 0.6 (0.2-1.3) mg/dL AST 22 (14-36) U/L ALT 9 (4-34) U/L Alkaline Phosphatase 139 H (38-126) U/L Total Protein 7.1 (6.3-8.2) g/dL Albumin 3.2 L (3.5-5.0) g/dL Disposition Clinical Impression: Vaginal bleeding Disposition: HOME SELF-CARE Condition: Good Instructions (If sedation given, give patient instructions): Dysfunctional Uterine Bleeding (ED) Additional Instructions: Please follow up with Dr. Mendoza next week. Please return to the emergency department if you have any worsening symptoms. As discussed with Dr. Mendoza, you will continue to have vaginal bleeding. Is patient prescribed a controlled substance at d/c from ED?: No Referrals: Jake Rodriguez MD [Primary Care Provider] - 1-2 days Laura Mendoza DO [Doctor of Osteopathic Medicine] - 1-2 days Time of Disposition: 17:11
--- NOTE | 2019-10-28 14:09 | US ---
EXAMINATION TYPE: US pelvic complete DATE OF EXAM: 10/28/2019 COMPARISON: NONE CLINICAL HISTORY: DUB. passing clots for 2 weeks, this happened earlier this year, , 2 c-sections , tubal ligation, morbidly obese TECHNIQUE: TA. Transabdominal sonographic images of the pelvis were acquired. Due to patients size , TV approach was not an option Date of LMP: 20+yrs ago EXAM MEASUREMENTS: Uterus: 10.7 x 5.0 x 4.7 cm Endometrial Stripe: 1.1 cm Right Ovary: not seen Left Ovary: not seen limited imaging due to 388lb habitus 1. Uterus: Anteverted wnl 2. Endometrium: thickened 3. Right Ovary: not seen due to bowel gas, atrophy and habitus 4. Left Ovary: not seen due to bowel gas, atrophy and habitus 5. Bilateral Adnexa: wnl 6. Posterior cul-de-sac: wnl Exam suboptimal due to patient's large body habitus. IMPRESSION: Suboptimal study with abnormal thickening of the endometrium identified and transabdomina l pelvic ultrasound. Differential includes hyperplasia and polyp but neoplasm cannot be excluded. Fur ther investigation with endometrial biopsy advised.
[2019-10-28 17:46] VITALS: BP 122/70; PULSE 62
== END 2019-10-28 18:08 | disposition home or self-care (01) ==
LOC: EC 11:51
DX: N93.9 Abnormal uterine and vaginal bleeding, unspecified (principal); R93.89 Abnormal findings on diagnostic imaging of other specified body structures; J45.909 Unspecified asthma, uncomplicated; I11.0 Hypertensive heart disease with heart failure; I50.9 Heart failure, unspecified; E78.5 Hyperlipidemia, unspecified; M19.90 Unspecified osteoarthritis, unspecified site; G47.33 Obstructive sleep apnea (adult) (pediatric); M10.9 Gout, unspecified; D64.9 Anemia, unspecified; Z87.891 Personal history of nicotine dependence; Z88.8 Allergy status to other drugs, medicaments and biological substances; Z91.041 Radiographic dye allergy status; Z91.048 Other nonmedicinal substance allergy status; Z79.52 Long term (current) use of systemic steroids; Z79.82 Long term (current) use of aspirin; Z79.899 Other long term (current) drug therapy; Z99.89 Dependence on other enabling machines and devices
CPT/HCPCS: 36415; 76856; 80053; 85025; 88305; 99284

== ENCOUNTER 2020-04-30 14:49 | Inpatient (IN) | payer MEDICARE, OTHER ==
[2020-04-30] MEDS ORDERED: SODIUM CHLORIDE 0.9% 1,000 ML IV STA (14:52)
--- NOTE | 2020-04-30 14:55 | ED ---
Recheck HPI - General Stated Complaint: Elevated labs Time Seen by Provider: 04/30/20 14:52 Source: RN notes reviewed, old records reviewed Limitations: no limitations - History of Present Illness Initial Comments: This is a 70-year-old female presented today for evaluation regards to abnormal outpatient lab studies. Worsening renal failure increasing BUN. Patient suffers mildly altered patient suffers from high blood pressure diabetes atrial fibrillation, mild renal disease. Patient herself denying any significant complaints patient was told by primary care presents emergency department secondary to abnormal outpatient lab testing. Complaint: abnormal lab -: unknown Returns Today for: Called Because of Abnormal Lab/Test Symptoms Since Prior Visit: no new symptoms Context: called for abnormal lab result Associated Symptoms: none - Related Data Home Medications Medication Instructions Recorded Confirmed Folic Acid 1 mg PO DAILY@1200 12/19/16 10/28/19 Cholecalciferol [Vitamin D3 (25 2,000 unit PO DAILY@1700 12/30/16 10/28/19 Mcg = 1000 Iu)] Bisacodyl [Dulcolax] 10 mg RECTAL DAILY PRN 02/23/17 10/28/19 Ferrous Sulfate [Iron (65 MG 325 mg PO DAILY@1200 02/23/17 10/28/19 Elemental)] Atorvastatin [Lipitor] 40 mg PO HS@2100 06/25/17 10/28/19 Magnesium Hydroxide [Milk of 2,400 mg PO DAILY PRN 06/25/17 10/28/19 Magnesia] Calcium Acetate [PhosLo] 667 mg PO DAILY@0800 08/23/17 10/28/19 Epoetin Juan Jose [Procrit] 20,000 unit SQ TH 08/23/17 10/28/19 Linaclotide [Linzess] 145 mcg PO DAILY@0800 08/23/17 10/28/19 Calcitriol 0.25 mcg PO DAILY@0800 11/20/18 10/28/19 Lactulose 20 mg PO DAILY PRN 11/20/18 10/28/19 Sennosides [Senna] 8.6 - 17.2 mg PO HS PRN 11/20/18 10/28/19 Acetaminophen Tab [Tylenol] 650 mg PO Q4H PRN 05/23/19 10/28/19 Albuterol Inhaler (Mhu) [Ventolin 1 - 2 puff INHALATION RT-Q4H PRN 05/23/19 10/28/19 Hfa Inhaler (Mhu)] Aspirin 81 mg PO DAILY@1200 05/23/19 10/28/19 Co Q-10 60mg 60 mg PO DAILY@1700 05/23/19 10/28/19 Ipratropium-Albuterol Nebulize 3 ml INHALATION RT-QID 05/23/19 10/28/19 [Duoneb 0.5 mg-3 mg/3 ml Soln] Isosorbide Mononitrate ER [Imdur] 30 mg PO DAILY@0800 05/23/19 10/28/19 Na Phos,M-B/Na Phos,Di-Ba [Fleet 133 ml RECTAL DAILY PRN 05/23/19 10/28/19 Adult] Acetaminophen-Codeine 300-30mg 1 tab PO TID PRN 10/28/19 10/28/19 [Tylenol w/codeine #3] Allopurinol [Zyloprim] 100 mg PO DAILY@0800 10/28/19 10/28/19 Hydrocortisone Cream 1 applic TOPICAL BID 10/28/19 10/28/19 [Hydrocortisone 2.5% Cream] Metoprolol Tartrate [Lopressor] 50 mg PO BID@0800,1700 10/28/19 10/28/19 Potassium Chloride [K-Tab ER] 20 meq PO DAILY@1200 10/28/19 10/28/19 Torsemide [Demadex] 40 mg PO BID@0800,1700 10/28/19 10/28/19 Allergies Allergy/AdvReac Type Severity Reaction Status Date / Time Iodinated Contrast Media AdvReac SEE COMMENT Verified 10/28/19 12:24 [Iodinated Contrast- Oral and IV Dye] sodium phosphate AdvReac SEE COMMENT Verified 10/28/19 12:24 [From Fleet Enema] NEPHROTOXINS Allergy SEE COMMENT Uncoded 11/25/18 12:54 Review of Systems ROS Statement: Those systems with pertinent positive or pertinent negative responses have been documented in the HPI. ROS Other: All systems not noted in ROS Statement are negative. Past Medical History Past Medical History: Atrial Fibrillation, Asthma, Heart Failure, Hyperlipidemia, Hypertension, Osteoarthritis (OA), Pneumonia, Renal Disease, Sleep Apnea/CPAP/BIPAP Additional Past Medical History / Comment(s): BRUNILDA with CPAP, gout bilateral legs/feet, arthritis multiple joints, sinus problems, past left lower leg cellulitis and wound, UTIs. Morbid obesity, 02 2 LITERS [place], gastritis,"in my 20's i had ulcers", anemia "has had blood transfusion, and iron infusions" History of Any Multi-Drug Resistant Organisms: Other MDRO Past Surgical History: Section, Ear Surgery Additional Past Surgical History / Comment(s): Debridement bilateral pedal toenails, colonoscopy-normal, L ear benign tumor removed, x 2. pt currently resides at [facility] Past Anesthesia/Blood Transfusion Reactions: No Reported Reaction Additional Past Anesthesia/Blood Transfusion Reaction / Comment(s): blood transfusions- no reaction Past Psychological History: No Psychological Hx Reported Smoking Status: Former smoker Past Alcohol Use History: Rare Past Drug Use History: None Reported - Past Family History Mother Family Medical History: Cancer Additional Family Medical History / Comment(s): Mother of colon cancer at the age of 54 yrs. Father Family Medical History: Myocardial Infarction ([place]) Additional Family Medical History / Comment(s): Father of a massive [place] at the age of 60 yrs. General Exam General appearance: alert, in no apparent distress Head exam: Present: atraumatic, normocephalic, normal inspection Eye exam: Present: normal appearance, PERRL, EOMI. Absent: scleral icterus, conjunctival injection, periorbital swelling ENT exam: Present: normal exam, mucous membranes moist Neck exam: Present: normal inspection. Absent: tenderness, meningismus, lymphadenopathy Respiratory exam: Present: normal lung sounds bilaterally. Absent: respiratory distress, wheezes, rales, rhonchi, stridor Cardiovascular Exam: Present: regular rate, normal rhythm, normal heart sounds. Absent: systolic murmur, diastolic murmur, rubs, gallop, clicks GI/Abdominal exam: Present: soft, normal bowel sounds. Absent: distended, tenderness, guarding, rebound, rigid Extremities exam: Present: normal inspection, full ROM, normal capillary refill. Absent: tenderness, pedal edema, joint swelling, calf tenderness Back exam: Present: normal inspection Neurological exam: Present: alert, oriented X3, CN II-XII intact Psychiatric exam: Present: normal affect, normal mood Skin exam: Present: warm, dry, intact, normal color. Absent: rash Course Vital Signs 04/30/20 14:57 Temperature 97.5 F L Pulse Rate 72 Respiratory 18 Rate Blood Pressure 99/41 O2 Sat by Pulse 95 Oximetry - Reevaluation(s) Reevaluation #1: 04/30/20 15:05 Medical records reviewed Reevaluation #2: 04/30/20 16:10 Patient still continued to feel weak, mildly confused at times - Consultations Consultation #1: Spoke with Dr. Stephens agrees to admit patient Medical Decision Making - Medical Decision Making 70 female DF for evaluation of abnormal patient Lantus significantly elevated BUN recent drop in hemoglobin likely related to probable upper GI bleed. We'll admit for continued evaluation monitoring of hemoglobin as well as uremia - Lab Data Result diagrams: 04/30/20 15:16 04/30/20 15:16 Lab Results 04/30/20 04/30/20 04/30/20 Range/Units 15:16 15:16 15:16 WBC 16.7 H (3.8-10.6) k/uL RBC 3.11 L (3.80-5.40) m/uL Hgb 8.5 L (11.4-16.0) gm/dL Hct 29.2 L (34.0-46.0) % MCV 93.8 (80.0-100.0) fL MCH 27.4 (25.0-35.0) pg MCHC 29.2 L (31.0-37.0) g/dL RDW 20.4 H (11.5-15.5) % Plt Count 214 (150-450) k/uL Neutrophils % 87 % Lymphocytes % 5 % Monocytes % 5 % Eosinophils % 3 % Basophils % 0 % Neutrophils # 14.4 H (1.3-7.7) k/uL Lymphocytes # 0.8 L (1.0-4.8) k/uL Monocytes # 0.8 (0-1.0) k/uL Eosinophils # 0.4 (0-0.7) k/uL Basophils # 0.0 (0-0.2) k/uL Hypochromasia Marked Anisocytosis Moderate Macrocytosis Slight Sodium 141 (137-145) mmol/L Potassium 4.5 (3.5-5.1) mmol/L Chloride 103 (98-107) mmol/L Carbon Dioxide 28 (22-30) mmol/L Anion Gap 10 mmol/L BUN 116 H* (7-17) mg/dL Creatinine 2.73 H (0.52-1.04) mg/dL Est GFR (CKD-EPI)AfAm 20 (>60 ml/min/1.73 sqM) Est GFR (CKD-EPI)NonAf 17 (>60 ml/min/1.73 sqM) Glucose 136 H (74-99) mg/dL Plasma Lactic Acid [place] 1.1 (0.7-2.0) mmol/L Calcium 9.0 (8.4-10.2) mg/dL Phosphorus 3.5 (2.5-4.5) mg/dL Magnesium 2.3 (1.6-2.3) mg/dL Total Bilirubin 0.5 (0.2-1.3) mg/dL AST 23 (14-36) U/L ALT 12 (4-34) U/L Alkaline Phosphatase 124 (38-126) U/L Creatine Kinase 39 (30-135) U/L NT-Pro-B Natriuret Pep pg/mL Total Protein 6.5 (6.3-8.2) g/dL Albumin 3.1 L (3.5-5.0) g/dL 04/30/20 Range/Units 15:16 WBC (3.8-10.6) k/uL RBC (3.80-5.40) m/uL Hgb (11.4-16.0) gm/dL Hct (34.0-46.0) % MCV (80.0-100.0) fL MCH (25.0-35.0) pg MCHC (31.0-37.0) g/dL RDW (11.5-15.5) % Plt Count (150-450) k/uL Neutrophils % % Lymphocytes % % Monocytes % % Eosinophils % % Basophils % % Neutrophils # (1.3-7.7) k/uL Lymphocytes # (1.0-4.8) k/uL Monocytes # (0-1.0) k/uL Eosinophils # (0-0.7) k/uL Basophils # (0-0.2) k/uL Hypochromasia Anisocytosis Macrocytosis Sodium (137-145) mmol/L Potassium (3.5-5.1) mmol/L Chloride (98-107) mmol/L Carbon Dioxide (22-30) mmol/L Anion Gap mmol/L BUN (7-17) mg/dL Creatinine (0.52-1.04) mg/dL Est GFR (CKD-EPI)AfAm (>60 ml/min/1.73 sqM) Est GFR (CKD-EPI)NonAf (>60 ml/min/1.73 sqM) Glucose (74-99) mg/dL Plasma Lactic Acid [place] (0.7-2.0) mmol/L Calcium (8.4-10.2) mg/dL Phosphorus (2.5-4.5) mg/dL Magnesium (1.6-2.3) mg/dL Total Bilirubin (0.2-1.3) mg/dL AST (14-36) U/L ALT (4-34) U/L Alkaline Phosphatase (38-126) U/L Creatine Kinase (30-135) U/L NT-Pro-B Natriuret Pep 7830 pg/mL Total Protein (6.3-8.2) g/dL Albumin (3.5-5.0) g/dL - EKG Data -: EKG Interpreted by Me (EKG shows A. fib of 68 QRS 90 QTC 4:38) Disposition Clinical Impression: Uremia, Anemia, Acute renal failure, Altered mental status Disposition: HOME SELF-CARE Condition: Fair Is patient prescribed a controlled substance at d/c from ED?: No Referrals: Jake Rodriguez MD [Primary Care Provider] - 1-2 days
[2020-04-30 15:28] LABS: Anisocytosis Moderate; Basophils % (A) 0 %; Eosinophils # (A) 0.4 k/uL (0-0.7); Eosinophils % (A) 3 %; HCT 29.2 % (34.0-46.0); HGB 8.5 gm/dL (11.4-16.0); Hypochromasia Marked; Lymphocytes # (A) 0.8 k/uL (1.0-4.8); Lymphocytes % (A) 5 %; MCH 27.4 pg (25.0-35.0); MCHC 29.2 g/dL (31.0-37.0); MCV 93.8 fL (80.0-100.0); Macrocytosis Slight; Mean Platelet Volume 7.8; Monocytes # (A) 0.8 k/uL (0-1.0); Monocytes % (A) 5 %; Neutrophils # (A) 14.4 k/uL (1.3-7.7); Neutrophils % (A) 87 %; Platelet Count 214 k/uL (150-450); RBC 3.11 m/uL (3.80-5.40); RDW 20.4 % (11.5-15.5); WBC 16.7 k/uL (3.8-10.6)
[2020-04-30 15:43] LABS: Albumin 3.1 g/dL (3.5-5.0); Magnesium 2.3 mg/dL (1.6-2.3); Phosphorus 3.5 mg/dL (2.5-4.5); Potassium 4.5 mmol/L (3.5-5.1); Total Bilirubin 0.5 mg/dL (0.2-1.3); Total Protein 6.5 g/dL (6.3-8.2)
[2020-04-30] MEDS ORDERED: LORATADINE 10 MG TAB PO PRN (18:07)
[2020-04-30] MEDS ORDERED: BISACODYL 10 MG SUPP RECTAL PRN (18:07)
[2020-04-30] MEDS ORDERED: ALBUTEROL NEBULIZED 2.5 MG/3 ML INHALATION PRN (18:07)
[2020-04-30] MEDS ORDERED: ACETAMINOPHEN TAB 325 MG TAB PO PRN (18:07)
[2020-04-30] MEDS ORDERED: LACTULOSE 20 GM/30 ML CUP PO PRN (18:07)
[2020-04-30] MEDS ORDERED: Acetaminophen-Codeine 300-30mg TAB PO PRN (18:07)
[2020-04-30] MEDS ORDERED: SENNOSIDES 8.6 MG TAB PO PRN (18:07)
[2020-04-30] MEDS ORDERED: MAGNESIUM HYDROXIDE 2,400 MG/10 ML CUP PO PRN (18:07)
[2020-04-30] MEDS: IPRATROPIUM-ALBUTEROL 3 ML NEB INHALATION SCH (20:10)
[2020-04-30] MEDS: ATORVASTATIN 40 MG TAB PO SCH (20:41)
--- NOTE | 2020-04-30 22:50 | P.HPIM ---
History of Present Illness H&P Date: 04/30/20 Chief Complaint: Abnormal renal function History of presenting complaint: This is a pleasant 70-year-old patient was chronic stable medical conditions include CHF EF 55 and 55%, morbid obesity, chronic kidney disease stage IV secondary to nephrosclerosis, renal bone disease, anemia of chronic kidney disease, persistent atrial fibrillation, fatty liver, COPD, primary osteoa rthritis, obstructive sleep apnea, chronic gout, on home oxygen, chronic medical debility at her baseline uses a lift a wheelchair. Patient is a resident at [facility]. Patient was sent in from the [facility] for worsening kidney function. His appetite is fair. Does feel at baseline tired. No fever no chills. No respiratory symptoms. No trouble with bowel movements. Review of systems: GEN.: Tired EYES: None HEENT: None NECK: None RESPIRATORY: None CARDIOVASCULAR: None GASTROINTESTINAL: None GENITOURINARY: None MUSCULOSKELETAL: [Joint pains LYMPHATICS: None HEMATOLOGICAL: None PSYCHIATRY: None NEUROLOGICAL: None Past medical history to include: CHF EF 55 and 55%, morbid obesity, chronic kidney disease stage IV secondary to nephrosclerosis, renal bone disease, anemia of chronic kidney disease, persistent atrial fibrillation, fatty liver, COPD, primary osteoarthritis, obstructive sleep apnea, chronic gout, on home oxygen, chronic medical debility at her baseline uses a lift to a wheelchair Social history: Lives at the [facility]. Patient smoked from age of 21 for about 35 years. Typically a pack would last about for a week. Alcohol rarely. Physical examination: VITAL SIGNS: [97.6, 62, 16, 100/66, 97% room air GENERAL: BMI 69, laying in bed, awake. EYES: Pupils equal. Conjunctiva normal. HEENT: External appearance of nose and ears normal, oral cavity grossly normal. NECK: JVD not raised; masses not palpable. HEART: First and second heart sounds are normal; no edema. LUNGS: Respiratory rate normal; clear to auscultation. ABDOMEN: Soft, nontender, liver spleen not palpable, no masses palpable. PSYCH: Alert and oriented x3; mood and affect normal. NEUROLOGICAL: Cranial nerves grossly intact; no facial asymmetry, power and sensation grossly intact. LYMPHATICS: No lymph nodes palpable in the axilla and neck INVESTIGATIONS, reviewed in the clinical context: White count 16.7 8.5 platelets 214 potassium 4.5 bun 116 creatinine 2.73 EKG tracing atrial fibrillation rate in the 60s with some PVC Assessment: -Chronic kidney disease stage IV secondary to nephrosclerosis with some worsening -Chronic congestive heart failure from diastolic dysfunction EF 55-60% -Morbid obesity BMI 16.6 -Chronic kidney disease renal bone disease -Anemia of chronic kidney disease -Persistent atrial fibrillation, rate controlled Nonalcoholic fatty liver disease -COPD in an ex-smoker -Primary osteoarthritis -Obstructive sleep apnea -Chronic gout -Chronic hypoxic respiratory failure from COPD -Chronic medical debility and a baseline patient does use a lift to a wheelchair Plan: Home medications resumed. Patient be gently hydrated. Nephrology is consulted. Patient really does not have any significant uremic symptoms at the present time. We'll temporally hold of the dose of Demadex to tomorrow. He'll be gently hydrated the patient. Go from there. Care was discussed the patient. Past Medical History Past Medical History: Atrial Fibrillation, Asthma, Heart Failure, Hyperlipidemia, Hypertension, Osteoarthritis (OA), Pneumonia, Renal Disease, Sleep Apnea/CPAP/BIPAP Additional Past Medical History / Comment(s): BRUNILDA with CPAP, gout bilateral legs/feet, arthritis multiple joints, sinus problems, past left lower leg cellulitis and wound, UTIs. Morbid obesity, 02 2 LITERS N/[place], gastritis,"in my 20's i had ulcers", anemia "has had blood transfusion, and iron infusions" History of Any Multi-Drug Resistant Organisms: Other MDRO Past Surgical History: Section, Ear Surgery Additional Past Surgical History / Comment(s): Debridement bilateral pedal toenails, colonoscopy-normal, L ear benign tumor removed, x 2. pt currently resides at [facility] Past Anesthesia/Blood Transfusion Reactions: No Reported Reaction Additional Past Anesthesia/Blood Transfusion Reaction / Comment(s): blood transfusions- no reaction Past Psychological History: No Psychological Hx Reported Additional Psychological History / Comment(s): pt currently at [facility]. not ambulatory-they use lift to w/c Smoking Status: Former smoker Past Alcohol Use History: Rare Additional Past Alcohol Use History / Comment(s): started smoking at age 21 and quit 2007 a pack would last a week. Past Drug Use History: None Reported - Past Family History Mother Family Medical History: Cancer Additional Family Medical History / Comment(s): Mother of colon cancer at the age of 54 yrs. Father Family Medical History: Myocardial Infarction ([place]) Additional Family Medical History / Comment(s): Father of a massive [place] at the age of 60 yrs. Medications and Allergies Home Medications Medication Instructions Recorded Confirmed Type Folic Acid 1 mg PO DAILY@1200 12/19/16 04/30/20 History Cholecalciferol [Vitamin D3 (25 2,000 unit PO DAILY@1700 12/30/16 04/30/20 History Mcg = 1000 Iu)] Bisacodyl [Dulcolax] 10 mg RECTAL DAILY PRN 02/23/17 04/30/20 History Ferrous Sulfate [Iron (65 MG 325 mg PO DAILY@1200 02/23/17 04/30/20 History Elemental)] Atorvastatin [Lipitor] 40 mg PO HS@2100 06/25/17 04/30/20 History Calcium Acetate [PhosLo] 667 mg PO DAILY@0800 08/23/17 04/30/20 History Epoetin Juan Jose [Procrit] 20,000 unit SQ TH 08/23/17 04/30/20 History Linaclotide [Linzess] 145 mcg PO DAILY@0800 08/23/17 04/30/20 History Calcitriol 0.25 mcg PO DAILY@0800 11/20/18 04/30/20 History Lactulose 20 mg PO DAILY PRN 11/20/18 04/30/20 History Sennosides [Senna] 8.6 - 17.2 mg PO HS PRN 11/20/18 04/30/20 History Acetaminophen Tab [Tylenol] 650 mg PO Q4H PRN 05/23/19 04/30/20 History Aspirin 81 mg PO DAILY@1200 05/23/19 04/30/20 History Co Q-10 60mg 60 mg PO DAILY@1700 05/23/19 04/30/20 History Ipratropium-Albuterol Nebulize 3 ml INHALATION RT-QID 05/23/19 04/30/20 History [Duoneb 0.5 mg-3 mg/3 ml Soln] Isosorbide Mononitrate ER [Imdur] 30 mg PO DAILY@0800 05/23/19 04/30/20 History Na Phos,M-B/Na Phos,Di-Ba [Fleet 133 ml RECTAL DAILY PRN 05/23/19 04/30/20 History Adult] Acetaminophen-Codeine 300-30mg 1 tab PO TID PRN 10/28/19 04/30/20 History [Tylenol w/codeine #3] Allopurinol [Zyloprim] 100 mg PO DAILY@0800 10/28/19 04/30/20 History Hydrocortisone Cream 1 applic TOPICAL BID 10/28/19 04/30/20 History [Hydrocortisone 2.5% Cream] Potassium Chloride [K-Tab ER] 20 meq PO DAILY@1200 10/28/19 04/30/20 History Torsemide [Demadex] 40 mg PO BID@0800,1700 10/28/19 04/30/20 History Albuterol Sulfate [Albuterol 2 puff PO RT-Q4H PRN 04/30/20 04/30/20 History Sulfate Hfa] Hydrocortisone Cream 1 applic TOPICAL DAILY PRN 04/30/20 04/30/20 History [Hydrocortisone 2.5% Cream] Loratadine [Claritin] 10 mg PO Q48H PRN 04/30/20 04/30/20 History Magnesium Hydroxide [Milk of 7,200 mg PO DAILY PRN 04/30/20 04/30/20 History Magnesia Concentrate] Metoprolol Tartrate [Lopressor] 100 mg PO BID@0800,1700 04/30/20 04/30/20 History Allergies Allergy/AdvReac Type Severity Reaction Status Date / Time Iodinated Contrast Media AdvReac SEE COMMENT Verified 04/30/20 16:41 [Iodinated Contrast- Oral and IV Dye] sodium phosphate AdvReac SEE COMMENT Verified 04/30/20 16:41 [From Fleet Enema] NEPHROTOXINS Allergy SEE COMMENT Uncoded 11/25/18 12:54 Physical Exam Vitals: Vital Signs Temp Pulse Pulse Resp BP BP Pulse Ox 04/30/20 20:22 62 04/30/20 20:13 58 L 04/30/20 19:00 97.6 F 62 16 100/66 97 04/30/20 17:25 97.8 F 56 L 16 103/66 97 04/30/20 17:00 18 100 04/30/20 16:54 57 L 18 105/52 100 04/30/20 16:00 18 100 04/30/20 15:00 18 04/30/20 14:57 97.5 F L 72 18 99/41 95 Intake and Output 04/30/20 04/30/20 04/30/20 06:59 14:59 22:59 Output Total 400 Balance -400 Output: Urine 400 Other: Voiding Method Bedpan # Voids 1 Weight 190.509 kg 190.509 kg Results CBC & Chem 7: 04/30/20 15:16 04/30/20 15:16 Labs: Abnormal Lab Results - Last 24 Hours (Table) 04/30/20 04/30/20 Range/Units 15:16 15:16 WBC 16.7 H (3.8-10.6) k/uL RBC 3.11 L (3.80-5.40) m/uL Hgb 8.5 L (11.4-16.0) gm/dL Hct 29.2 L (34.0-46.0) % MCHC 29.2 L (31.0-37.0) g/dL RDW 20.4 H (11.5-15.5) % Neutrophils # 14.4 H (1.3-7.7) k/uL Lymphocytes # 0.8 L (1.0-4.8) k/uL BUN 116 H* (7-17) mg/dL Creatinine 2.73 H (0.52-1.04) mg/dL Glucose 136 H (74-99) mg/dL Albumin 3.1 L (3.5-5.0) g/dL Thrombosis Risk Factor Assmnt - Choose All That Apply Each Risk Factor Represents 2 Points: Age 61-74 years, Patient confined to bed Thrombosis Risk Factor Assessment Total Risk Factor Score: 4 Thrombosis Risk Factor Assessment Level: Moderate Risk
[2020-04-30] MEDS: SODIUM CHLORIDE 0.9% 1,000 ML IV SCH (23:11)
[2020-05-01] MEDS: IPRATROPIUM-ALBUTEROL 3 ML NEB INHALATION SCH ×4 (07:50→19:48)
[2020-05-01] MEDS ORDERED: METOPROLOL TARTRATE 50 MG TAB PO SCH ×2 (08:00→21:00)
[2020-05-01] MEDS ORDERED: TORSEMIDE 20 MG TAB PO SCH (08:00)
[2020-05-01] MEDS: ISOSORBIDE MONONITRATE ER 30 MG TAB.ER.24H PO SCH (09:01)
[2020-05-01] MEDS: CALCIUM ACETATE 667 MG TAB PO SCH (09:01)
[2020-05-01] MEDS: ALLOPURINOL 100 MG TAB PO SCH (09:02)
[2020-05-01] MEDS: CALCITRIOL 0.25 MCG CAP PO SCH (09:02)
[2020-05-01] MEDS: Linaclotide [Linzess] PO SCH (09:04)
--- NOTE | 2020-05-01 09:49 | P.NPCON ---
History of Present Illness - Reason for Consult acute renal failure - Chief Complaint Asymptomatic patient with high BUN - History of Present Illness This is a 70-year-old female shelter resident of [facility] who came in because of a high BUN. She has chronic kidney disease stage IV with a creatinine ranging between 2.7-3.2. Admission creatinine was 2.7 but BUN is high at 112 usually she runs around 60s to 70s BUN She denies any nausea vomiting diarrhea abdominal pain fever chills shortness of breath. Good appetite. No diarrhea. No dysuria frequency She is morbidly obese less than a shelter for the last 3 years No recent changes in medications. No recent GI bleed. Her hemoglobin is down from 12.9 on 04/21/2020 10 days ago -7.8 on admission. No history of melena heartburn or taking any nonsteroidals. Past Medical History Past Medical History: Atrial Fibrillation, Asthma, Heart Failure, Hyperlipidemia, Hypertension, Osteoarthritis (OA), Pneumonia, Renal Disease, Sleep Apnea/CPAP/BIPAP Additional Past Medical History / Comment(s): BRUNILDA with CPAP, gout bilateral legs/feet, arthritis multiple joints, sinus problems, past left lower leg cellulitis and wound, UTIs. Morbid obesity, 02 2 L[place], gastritis,"in my 20's i had ulcers", anemia "has had blood transfusion, and iron infusions" History of Any Multi-Drug Resistant Organisms: Other MDRO Past Surgical History: Section, Ear Surgery Additional Past Surgical History / Comment(s): Debridement bilateral pedal toenails, colonoscopy-normal, L ear benign tumor removed, x 2. pt currently resides at [facility] Past Anesthesia/Blood Transfusion Reactions: No Reported Reaction Additional Past Anesthesia/Blood Transfusion Reaction / Comment(s): blood transfusions- no reaction Past Psychological History: No Psychological Hx Reported Additional Psychological History / Comment(s): pt currently at [facility]. not ambulatory-they use lift to w/c Smoking Status: Former smoker Past Alcohol Use History: Rare Additional Past Alcohol Use History / Comment(s): started smoking at age 21 and quit 2007 a pack would last a week. Past Drug Use History: None Reported - Past Family History Mother Family Medical History: Cancer Additional Family Medical History / Comment(s): Mother of colon cancer at the age of 54 yrs. Father Family Medical History: Myocardial Infarction ([place]) Additional Family Medical History / Comment(s): Father of a massive [place] at the age of 60 yrs. Medications and Allergies Home Medications Medication Instructions Recorded Confirmed Type Folic Acid 1 mg PO DAILY@1200 12/19/16 04/30/20 History Cholecalciferol [Vitamin D3 (25 2,000 unit PO DAILY@1700 12/30/16 04/30/20 History Mcg = 1000 Iu)] Bisacodyl [Dulcolax] 10 mg RECTAL DAILY PRN 02/23/17 04/30/20 History Ferrous Sulfate [Iron (65 MG 325 mg PO DAILY@1200 02/23/17 04/30/20 History Elemental)] Atorvastatin [Lipitor] 40 mg PO HS@2100 06/25/17 04/30/20 History Calcium Acetate [PhosLo] 667 mg PO DAILY@0800 08/23/17 04/30/20 History Epoetin Juan Jose [Procrit] 20,000 unit SQ TH 08/23/17 04/30/20 History Linaclotide [Linzess] 145 mcg PO DAILY@0800 08/23/17 04/30/20 History Calcitriol 0.25 mcg PO DAILY@0800 11/20/18 04/30/20 History Lactulose 20 mg PO DAILY PRN 11/20/18 04/30/20 History Sennosides [Senna] 8.6 - 17.2 mg PO HS PRN 11/20/18 04/30/20 History Acetaminophen Tab [Tylenol] 650 mg PO Q4H PRN 05/23/19 04/30/20 History Aspirin 81 mg PO DAILY@1200 05/23/19 04/30/20 History Co Q-10 60mg 60 mg PO DAILY@1700 05/23/19 04/30/20 History Ipratropium-Albuterol Nebulize 3 ml INHALATION RT-QID 05/23/19 04/30/20 History [Duoneb 0.5 mg-3 mg/3 ml Soln] Isosorbide Mononitrate ER [Imdur] 30 mg PO DAILY@0800 05/23/19 04/30/20 History Na Phos,M-B/Na Phos,Di-Ba [Fleet 133 ml RECTAL DAILY PRN 05/23/19 04/30/20 History Adult] Acetaminophen-Codeine 300-30mg 1 tab PO TID PRN 10/28/19 04/30/20 History [Tylenol w/codeine #3] Allopurinol [Zyloprim] 100 mg PO DAILY@0800 10/28/19 04/30/20 History Hydrocortisone Cream 1 applic TOPICAL BID 10/28/19 04/30/20 History [Hydrocortisone 2.5% Cream] Potassium Chloride [K-Tab ER] 20 meq PO DAILY@1200 10/28/19 04/30/20 History Torsemide [Demadex] 40 mg PO BID@0800,1700 10/28/19 04/30/20 History Albuterol Sulfate [Albuterol 2 puff PO RT-Q4H PRN 04/30/20 04/30/20 History Sulfate Hfa] Hydrocortisone Cream 1 applic TOPICAL DAILY PRN 04/30/20 04/30/20 History [Hydrocortisone 2.5% Cream] Loratadine [Claritin] 10 mg PO Q48H PRN 04/30/20 04/30/20 History Magnesium Hydroxide [Milk of 7,200 mg PO DAILY PRN 04/30/20 04/30/20 History Magnesia Concentrate] Metoprolol Tartrate [Lopressor] 100 mg PO BID@0800,1700 04/30/20 04/30/20 History Allergies Allergy/AdvReac Type Severity Reaction Status Date / Time Iodinated Contrast Media AdvReac SEE COMMENT Verified 04/30/20 16:41 [Iodinated Contrast- Oral and IV Dye] sodium phosphate AdvReac SEE COMMENT Verified 04/30/20 16:41 [From Fleet Enema] NEPHROTOXINS Allergy SEE COMMENT Uncoded 11/25/18 12:54 Physical Exam Vitals: Vital Signs Temp Pulse Pulse Resp BP BP Pulse Ox 05/01/20 08:00 60 05/01/20 07:52 60 05/01/20 04:49 97.6 F 72 18 101/65 91 L 04/30/20 20:22 62 04/30/20 20:13 58 L 04/30/20 19:00 97.6 F 62 16 100/66 97 04/30/20 17:25 97.8 F 56 L 16 103/66 97 04/30/20 17:00 18 100 04/30/20 16:54 57 L 18 105/52 100 04/30/20 16:00 18 100 04/30/20 15:00 18 04/30/20 14:57 97.5 F L 72 18 99/41 95 Intake and Output 04/30/20 05/01/20 05/01/20 22:59 06:59 14:59 Output Total 400 Balance -400 Output: Urine 400 Other: Voiding Method Bedpan Bedpan # Voids 1 1 # Bowel Movements 1 Weight 190.509 kg This is a morbidly obese female. HEENT exam no JVP neck is supple no facial asymmetry Lungs are clear to auscultation good air entry bilaterally Heart sounds are unremarkable for any murmur rub gallop Abdomen soft nontender obese difficult to examine Extremity exam reveals minimal edema Neurologically awake alert oriented Results - Lab Results Most recent lab results Calcium 9.0 mg/dL (8.4-10.2) 04/30/20 15:16 Phosphorus 3.5 mg/dL (2.5-4.5) 04/30/20 15:16 Magnesium 2.3 mg/dL (1.6-2.3) 04/30/20 15:16 04/30/20 15:16 04/30/20 15:16 Assessment and Plan Assessment: Impression 1. Chronic kidney disease, stage IV for is in the is 16-20 range, etiology is nephrosclerosis Baseline creatinine 2.7-3.2 DATED 2016 9.89.3 [facility] SMALL KIDNEYS 2. Admitted with increased BUn, she usually runs in the 60-70 but was admitted in the 110 range. This is likely from the GI bleed as her hemoglobin has gone down from 12.9 on 04/21/2020 TO 7.8 on admission. No history of melena although she has dark stool but she is also on ferrous sulfate. She does have vaginal bleeding but she says is small and that should not cause her BUN to be disproportionately high 3. Blood pressure slightly low. 4. History of obstructive sleep apnea on CPAP 5. History of vaginal bleeding and has had endometrial biopsy which was unremarkable she does bleed small amounts. Recommendation 1. Hold diuresis for right now because of the low blood pressure. 2. Check iron saturation to rule out an deficiency 3. Possible GI workup. 4. Reduce the metoprolol from 100 twice a day to 50 twice a day, because of the low blood pressure and heart rate in the 60s Thank you for this consultation and I'll continue to follow
[2020-05-01 10:22] LABS: Calcium 8.6 mg/dL (8.4-10.2); Potassium 4.1 mmol/L (3.5-5.1)
[2020-05-01] MEDS: FERROUS SULFATE 325 MG TAB PO SCH (12:41)
[2020-05-01] MEDS: ASPIRIN 81 MG PO SCH (12:41)
[2020-05-01] MEDS: FOLIC ACID 1 MG TAB PO SCH (12:41)
[2020-05-01] MEDS: POTASSIUM CHLORIDE ER 20 MEQ TAB.ER PO SCH (12:41)
[2020-05-01] MEDS: SODIUM CHLORIDE 0.9% 1,000 ML IV SCH ×2 (12:46→20:11)
[2020-05-01] MEDS ORDERED: CO Q10 PO SCH (17:00)
--- NOTE | 2020-05-01 17:33 | P.PN ---
Progress Note - Text Progress Note Date: 05/01/20 Chief Complaint: Abnormal renal function History of presenting complaint: This is a pleasant 70-year-old patient was chronic stable medical conditions include CHF EF 55 and 55%, morbid obesity, chronic kidney disease stage IV secondary to nephrosclerosis, renal bone disease, anemia of chronic kidney disease, persistent atrial fibrillation, fatty liver, COPD, primary osteoarthritis, obstructive sleep apnea, chronic gout, on home oxygen, chronic medical debility at her baseline uses a lift a wheelchair. Patient is a resident at [facility]. Patient was sent in from the [facility] for worsening kidney function. His appetite is fair. Does feel at baseline tired. No fever no c hills. No respiratory symptoms. No trouble with bowel movements. Patient recently's had intermittent vaginal bleeding. Admitted with elevated BUN. Could be from GI bleed. Today-laying in bed. Awaiting endoscopy tomorrow. No new issues. Review of systems: Was done for constitutional, cardiovascular, GI, pulmonary. relevant finding as above Active Medications Acetaminophen (Tylenol Tab) 650 mg PO Q4H PRN PRN Reason: Pain or Fever > 100.5 Acetaminophen/Codeine Phosphate (Tylenol #3) 1 each PO TID PRN PRN Reason: Pain Albuterol Sulfate (Ventolin Nebulized) 2.5 mg INHALATION RT-Q4H PRN PRN Reason: Shortness Of Breath Albuterol/Ipratropium (Duoneb 0.5 Mg-3 Mg/3 Ml Soln) 3 ml INHALATION RT-QID [facility] Last Admin: 05/01/20 15:31 Dose: Not Given Documented by: Allopurinol (Zyloprim) 100 mg PO DAILY@0800 [facility] Last Admin: 05/01/20 09:02 Dose: 100 mg Documented by: Aspirin (Aspirin) 81 mg PO DAILY@1200 [facility] Last Admin: 05/01/20 12:41 Dose: 81 mg Documented by: Atorvastatin Calcium (Lipitor) 40 mg PO HS@2100 [facility] Last Admin: 04/30/20 20:41 Dose: 40 mg Documented by: Bisacodyl (Dulcolax) 10 mg RECTAL DAILY PRN PRN Reason: Constipation Calcitriol (Rocaltrol) 0.25 mcg PO DAILY@0800 [facility] Last Admin: 05/01/20 09:02 Dose: 0.25 mcg Documented by: Calcium Acetate (Phoslo) 667 mg PO DAILY@0800 [facility] Last Admin: 05/01/20 09:01 Dose: 667 mg Documented by: Cholecalciferol (Vitamin D3 (25 Mcg = 1000 Iu)) 2,000 unit PO DAILY@1700 [facility] Darbepoetin Juan Jose (Aranesp) 60 mcg SQ TH [facility] Ferrous Sulfate (Feosol) 325 mg PO DAILY@1200 [facility] Last Admin: 05/01/20 12:41 Dose: 325 mg Documented by: Folic Acid (Folic Acid) 1 mg PO DAILY@1200 [facility] Last Admin: 05/01/20 12:41 Dose: 1 mg Documented by: Sodium Chloride (Saline 0.9%) 1,000 mls @ 75 mls/hr IV .[id number] [facility] Last Admin: 05/01/20 12:46 Dose: 75 mls/hr Documented by: Isosorbide Mononitrate (Imdur) 30 mg PO DAILY@0800 [facility] Last Admin: 05/01/20 09:01 Dose: 30 mg Documented by: Lactulose (Cephulac) 20 gm PO DAILY PRN PRN Reason: Constipation Loratadine (Claritin) 10 mg PO Q48H PRN PRN Reason: Allergy Symptoms Magnesium Hydroxide (Milk Of Magnesia) 7,200 mg PO DAILY PRN PRN Reason: Constipation Metoprolol Tartrate (Lopressor) 50 mg PO BID [facility] Linaclotide [Linzess (]) 145 mcg PO DAILY@0800 [facility] Last Admin: 05/01/20 09:04 Dose: Not Given Documented by: Potassium Chloride (K-Dur 20) 20 meq PO DAILY@1200 [facility] Last Admin: 05/01/20 12:41 Dose: 20 meq Documented by: Senna (Senokot) 8.6 - 17.2 mg PO HS PRN PRN Reason: Constipation Physical examination: VITAL SIGNS: 97.7, 63, 18, 89/53, 91% room air GENERAL: BMI 69, laying in bed, awake. EYES: Pupils equal. Conjunctiva normal. HEENT: External appearance of nose and ears normal, oral cavity grossly normal. NECK: JVD not raised; masses not palpable. HEART: First and second heart sounds are normal; no edema. LUNGS: Respiratory rate normal; clear to auscultation. ABDOMEN: Soft, nontender, liver spleen not palpable, no masses palpable. PSYCH: Alert and oriented x3; mood and affect normal. INVESTIGATIONS, reviewed in the clinical context: Potassium 4.1 creatinine 2.76 Previous testing White count 16.7 Hemoglobin 8.5 platelets 214 potassium 4.5 bun 116 creatinine 2.73 EKG tracing atrial fibrillation rate in the 60s with some PVC April 21-hemoglobin was 12.9 Assessment: -Chronic kidney disease stage IV secondary to nephrosclerosis with some worsening -Lower GI bleed. Hemoglobin dropped from 12.9 on April 21 down to currently 7.8 on presentation. Also patient's been having some vaginal bleeding.-Intermittent -Chronic congestive heart failure from diastolic dysfunction EF 55-60% -Morbid obesity BMI 16.6 -Chronic kidney disease renal bone disease -Anemia of chronic kidney disease -Persistent atrial fibrillation, rate controlled Nonalcoholic fatty liver disease -COPD in an ex-smoker -Primary osteoarthritis -Obstructive sleep apnea -Chronic gout -Chronic hypoxic respiratory failure from COPD -Chronic medical debility and a baseline patient does use a lift to a wheelchair Plan: -Patient is scheduled for EGD colonoscopic tomorrow. Discussed the patient.
[2020-05-01] MEDS: CHOLECALCIFEROL 1,000 UNIT TAB PO SCH (17:48)
[2020-05-01] MEDS: ATORVASTATIN 40 MG TAB PO SCH (20:11)
--- NOTE | 2020-05-01 23:51 | P.CONS ---
History of Present Illness - Reason for Consult Consult date: 05/01/20 Anemia Requesting physician: Leonardo Stephens - Chief Complaint Abnormal labs - History of Present Illness 70-year-old female with a medical history significant for congestive heart failure, morbid obesity, chronic kidney disease, anemia of chronic disease, persistent atrial fibrillation, fatty liver, COPD, osteoarthritis, BRUNILDA, and gout who presented to the hospital for evaluation of abnormal labs. The patient is a resident at an extended care facility and was noted to have worsening kidney function and was sent in for further evaluation. On questioning the patient d enies any gross GI bleeding with no hematemesis or hematochezia. She does feel that bowel movements have been somewhat dark but does note that she is on iron therapy. She reports some nausea and one episode of dark vomiting. She also reports constipation at baseline. Laboratory evaluation on presentation was significant for WBC 16.7, platelet count 214,000, hemoglobin 8.5 with normocytic normochromic indices with a total bilirubin 0.3, alkaline phosphatase 224, AST 23 and ALT 12. She does report some postmenopausal bleeding which has been evaluated by gynecology in the past. Review of Systems REVIEW OF SYSTEMS: CONSTITUTIONAL: Denies any fevers, chills, weight change or fatigue. CARDIOVASCULAR: Denies any chest pain, palpitations high or low blood pressures RESPIRATORY: Denies any shortness of breath, hemoptysis or cough. GENITOURINARY: No dysuria or hematuria, but does report postmenopausal bleeding. MUSCULOSKELETAL: No weakness reported. SKIN: Denies any new rashes or lesions, jaundice or pallor. PSYCHIATRIC: Denies any depression or anxiety. NEUROLOGY: Denies headache, denies any new focal deficits. EARS/NOSE/THROAT: No recent hearing change, congestion, nasal discharge or sore throat. EYES: No pain in eyes, discharge or change in vision. GASTROINTESTINAL: As per HPI. Past Medical History Past Medical History: Atrial Fibrillation, Asthma, Heart Failure, Hyperli pidemia, Hypertension, Osteoarthritis (OA), Pneumonia, Renal Disease, Sleep Apnea/CPAP/BIPAP Additional Past Medical History / Comment(s): BRUNILDA with CPAP, gout bilateral legs/feet, arthritis multiple joints, sinus problems, past left lower leg cellulitis and wound, UTIs. Morbid obesity, 02 2 LITERS N/C, gastritis,"in my 20's i had ulcers", anemia "has had blood transfusion, and iron infusions" History of Any Multi-Drug Resistant Organisms: Other MDRO Past Surgical History: Section, Ear Surgery Additional Past Surgical History / Comment(s): Debridement bilateral pedal toenails, colonoscopy-normal, L ear benign tumor removed, x 2. pt currently resides at [facility] Past Anesthesia/Blood Transfusion Reactions: No Reported Reaction Additional Past Anesthesia/Blood Transfusion Reaction / Comm: blood transfusions- no reaction Past Psychological History: No Psychological Hx Reported Additional Psychological History / Comment(s): pt currently at [facility]. not ambulatory-they use lift to w/c Smoking Status: Former smoker Past Alcohol Use History: Rare Additional Past Alcohol Use History / Comment(s): started smoking at age 21 and quit 2007 a pack would last a week. Past Drug Use History: None Reported - Past Family History Mother Family Medical History: Cancer Additional Family Medical History / Comment(s): Mother of colon cancer at the age of 54 yrs. Father Family Medical History: Myocardial Infarction (WA) Additional Family Medical History / Comment(s): Father of a massive [place] at the age of 60 yrs. Medications and Allergies Home Medications Medication Instructions Recorded Confirmed Type Folic Acid 1 mg PO DAILY@1200 12/19/16 04/30/20 History Cholecalciferol [Vitamin D3 (25 2,000 unit PO DAILY@1700 12/30/16 04/30/20 History Mcg = 1000 Iu)] Bisacodyl [Dulcolax] 10 mg RECTAL DAILY PRN 02/23/17 04/30/20 History Ferrous Sulfate [Iron (65 MG 325 mg PO DAILY@1200 02/23/17 04/30/20 History Elemental)] Atorvastatin [Lipitor] 40 mg PO HS@2100 06/25/17 04/30/20 History Calcium Acetate [PhosLo] 667 mg PO DAILY@0800 08/23/17 04/30/20 History Epoetin Juan Jose [Procrit] 20,000 unit SQ TH 08/23/17 04/30/20 History Linaclotide [Linzess] 145 mcg PO DAILY@0800 08/23/17 04/30/20 History Calcitriol 0.25 mcg PO DAILY@0800 11/20/18 04/30/20 History Lactulose 20 mg PO DAILY PRN 11/20/18 04/30/20 History Sennosides [Senna] 8.6 - 17.2 mg PO HS PRN 11/20/18 04/30/20 History Acetaminophen Tab [Tylenol] 650 mg PO Q4H PRN 05/23/19 04/30/20 History Aspirin 81 mg PO DAILY@1200 05/23/19 04/30/20 History Co Q-10 60mg 60 mg PO DAILY@1700 05/23/19 04/30/20 History Ipratropium-Albuterol Nebulize 3 ml INHALATION RT-QID 05/23/19 04/30/20 History [Duoneb 0.5 mg-3 mg/3 ml Soln] Isosorbide Mononitrate ER [Imdur] 30 mg PO DAILY@0800 05/23/19 04/30/20 History Na Phos,M-B/Na Phos,Di-Ba [Fleet 133 ml RECTAL DAILY PRN 05/23/19 04/30/20 History Adult] Acetaminophen-Codeine 300-30mg 1 tab PO TID PRN 10/28/19 04/30/20 History [Tylenol w/codeine #3] Allopurinol [Zyloprim] 100 mg PO DAILY@0800 10/28/19 04/30/20 History Hydrocortisone Cream 1 applic TOPICAL BID 10/28/19 04/30/20 History [Hydrocortisone 2.5% Cream] Potassium Chloride [K-Tab ER] 20 meq PO DAILY@1200 10/28/19 04/30/20 History Torsemide [Demadex] 40 mg PO BID@0800,1700 10/28/19 04/30/20 History Albuterol Sulfate [Albuterol 2 puff PO RT-Q4H PRN 04/30/20 04/30/20 History Sulfate Hfa] Hydrocortisone Cream 1 applic TOPICAL DAILY PRN 04/30/20 04/30/20 History [Hydrocortisone 2.5% Cream] Loratadine [Claritin] 10 mg PO Q48H PRN 04/30/20 04/30/20 History Magnesium Hydroxide [Milk of 7,200 mg PO DAILY PRN 04/30/20 04/30/20 History Magnesia Concentrate] Metoprolol Tartrate [Lopressor] 100 mg PO BID@0800,1700 04/30/20 04/30/20 Histor y Allergies Allergy/AdvReac Type Severity Reaction Status Date / Time Iodinated Contrast Media AdvReac SEE COMMENT Verified 04/30/20 16:41 [Iodinated Contrast- Oral and IV Dye] sodium phosphate AdvReac SEE COMMENT Verified 04/30/20 16:41 [From Fleet Enema] NEPHROTOXINS Allergy SEE COMMENT Uncoded 11/25/18 12:54 Physical Exam Vitals: Vital Signs Temp Pulse Pulse Resp BP BP Pulse Ox 05/01/20 08:00 60 05/01/20 07:52 60 05/01/20 07:00 98.0 F 62 17 112/66 94 L 05/01/20 04:49 97.6 F 72 18 101/65 91 L 04/30/20 20:22 62 04/30/20 20:13 58 L 04/30/20 19:00 97.6 F 62 16 100/66 97 04/30/20 17:25 97.8 F 56 L 16 103/66 97 04/30/20 17:00 18 100 04/30/20 16:54 57 L 18 105/52 100 04/30/20 16:00 18 100 04/30/20 15:00 18 04/30/20 14:57 97.5 F L 72 18 99/41 95 Intake and Output 04/30/20 05/01/20 05/01/20 22:59 06:59 14:59 Output Total 400 Balance -400 Output: Urine 400 Other: Voiding Method Bedpan Bedpan Bedpan # Voids 1 1 # Bowel Movements 1 Weight 190.509 kg On physical examination, patient appears comfortable in no apparent distress. HEAD: Normocephalic, atraumatic. EYES: No scleral icterus. No conjunctival injection. MOUTH: No lesions, tongue midline. NECK: Trachea midline, no gross abnormalities. CHEST: Clear to auscultation with no wheezing or rhonchi appreciated. HEART: Regular rate and rhythm. ABDOMEN: Soft, morbidly obese. Bowel sounds are positive. No organomegaly. No guarding or rigidity. EXTREMITIES: No pedal edema. SKIN: No rashes, no jaundice. NEUROLOGIC: Alert and oriented x3. Results CBC & Chem 7: 04/30/20 15:16 05/01/20 09:21 Labs: Abnormal Lab Results - Last 24 Hours (Table) 04/30/20 04/30/20 05/01/20 Range/Units 15:16 15:16 09:21 WBC 16.7 H (3.8-10.6) k/uL RBC 3.11 L (3.80-5.40) m/uL Hgb 8.5 L (11.4-16.0) gm/dL Hct 29.2 L (34.0-46.0) % MCHC 29.2 L (31.0-37.0) g/dL RDW 20.4 H (11.5-15.5) % Neutrophils # 14.4 H (1.3-7.7) k/uL Lymphocytes # 0.8 L (1.0-4.8) k/uL BUN 116 H* 102 H* (7-17) mg/dL Creatinine 2.73 H 2.76 H (0.52-1.04) mg/dL Glucose 136 H 122 H (74-99) mg/dL Albumin 3.1 L (3.5-5.0) g/dL Assessment and Plan (1) Normocytic normochromic anemia Narrative/Plan: 70-year-old female with multiple medical comorbidities including anemia of chronic disease and chronic kidney disease who presented to the hospital due to worsening kidney function on laboratory evaluation. Patient found to be anemic on presentation with a hemoglobin of 8.5 with normocytic indices. She does report a prior colonoscopy 3-4 years ago but does not believe she's had EGD in the past. She denies any excessive NSAID use. She does report 1 episode of dark-colored vomit and some dark stool, however is on iron therapy. Likely etiology of normocytic anemia is anemia of chronic disease and worsening kidney function, however plan is to rule out upper GI bleed given dark-colored stool and episode of dark colored emesis although this may be likely secondary to iron supplementation with EGD. Current Visit: Yes Status: Acute Code(s): D64.9 - ANEMIA, UNSPECIFIED SNOMED Code(s): 36196231 (2) Melena Current Visit: Yes Status: Acute Code(s): K92.1 - MELENA SNOMED Code(s): 7641162 Plan: Supportive care Continue to monitor hemoglobin and hematocrit and transfuse as needed Okay for diet Nothing by mouth after midnight Anemia laboratory evaluation ordered Plan for EGD tomorrow for further evaluation Continue nephrology care Thank you for allowing us to participate in the care of the patient
[2020-05-02] MEDS ORDERED: PROPOFOL 10 MG/ML 20 ML VIAL IV ONE (07:44)
[2020-05-02] MEDS ORDERED: IV FLUID CONTINUATION 1,000 ML IV ONE (07:46)
[2020-05-02] MEDS: IPRATROPIUM-ALBUTEROL 3 ML NEB INHALATION SCH ×4 (07:57→21:15)
--- NOTE | 2020-05-02 08:16 | P.PCN ---
Date of Procedure: 05/02/20 Description of Procedure: BRIEF HISTORY: 70-year-old female with a medical history significant for congestive heart failure, morbid obesity, chronic kidney disease, anemia of chronic disease, persistent atrial fibrillation, fatty liver, COPD, osteoarthritis, BRUNILDA, and gout who presented to the hospital for evaluation of abnormal labs. The patient is a resident at an [facility] and was noted to have worsening kidney function and was sent in for further evaluation. On questioning the patient denies any gross GI bleeding with no hematemesis or hematochezia. She does feel that bowel movements have been somewhat dark but does note that she is on iron therapy. She reports some nausea and one episode of dark vomiting. She also reports constipation at baseline. Laboratory evaluation on presentation was significant for WBC 16.7, platelet count 214,000, hemoglobin 8.5 with normocytic normochromic indices. PROCEDURE PERFORMED: Esophagogastroduodenoscopy with biopsy. PREOPERATIVE DIAGNOSIS: Melena, anemia. ESTIMATED BLOOD LOSS: Minimal. IV sedation per anesthesia. PROCEDURE: After informed consent was obtained, the patient was brought into the endoscopy unit. IV sedation was administered by Anesthesia under continuous monitoring. Initially the Olympus GIF-190 video endoscope was inserted into the mouth. Esophagus intubated without any difficulty. It was gradually advanced into the stomach and duodenum and carefully examined. The bulb and the second part of the duodenum appeared normal except for some mild punctate erythema suggestive of mild duodenitis. The scope at this time was withdrawn to the stomach, adequately insufflated with air, and upon careful examination, mucosa of the antrum, body, cardia and the fundus appeared normal, except for some mild punctate erythema in the antrum and body suggestive of mild gastritis with biopsies taken. The scope was then withdrawn into the esophagus. The GE junction was located at 42 cm from the incisors with 2 cm hiatal hernia noted. The esophagus appeared normal. There were no erosions or ulcerations seen and the patient tolerated the procedure well. IMPRESSION: 1. Mild gastritis antrum and body, biopsied. 2. Mild duodenitis, biopsied. 3. Small hiatal hernia. RECOMMENDATIONS: The findings of this examination were discussed with the patient. Okay to resume diet. Okay to resume medications. Await pathology from biopsies. We'll initiate Pepcid daily for mild gastritis. Avoid NSAID use.
[2020-05-02 08:39] LABS: Reticulocyte % 3.6 % (0.5-2.0)
[2020-05-02] MEDS: ISOSORBIDE MONONITRATE ER 30 MG TAB.ER.24H PO SCH (08:55)
[2020-05-02] MEDS: CALCITRIOL 0.25 MCG CAP PO SCH (08:55)
[2020-05-02] MEDS: FAMOTIDINE 20 MG TAB PO SCH (08:55)
[2020-05-02] MEDS: CALCIUM ACETATE 667 MG TAB PO SCH (08:55)
[2020-05-02] MEDS: Linaclotide [Linzess] PO SCH (08:56)
[2020-05-02] MEDS: ALLOPURINOL 100 MG TAB PO SCH (08:56)
--- NOTE | 2020-05-02 09:04 | P.PN ---
Subjective Progress Note Date: 05/02/20 Principal diagnosis: This is a 70-year-old female fpc resident of [facility] who came in because of a high BUN. She has chronic kidney disease stage IV with a creatinine ranging between 2.7-3.2. Admission creatinine was 2.7 but BUN is high at 112 usually she runs around 60s to 70s BUN. This is deemed to be from GI bleeding as her hemoglobin went down basically from 12-8 She denies any nausea vomiting diarrhea abdominal pain fever chills shortness of breath. Good appetite. No diarrhea. No dysuria frequency She is morbidly obese less than a fpc for the last 3 years No recent changes in medications. No recent GI bleed. Her hemoglobin is down from 12.9 on 04/21/2020 10 days ago -7.8 on admission. No history of melena heartburn or taking any nonsteroidals. Since admission here, she's been stable. This morning she had EGD which shows gastritis and did not display. She is also complaining of constipation. Yesterday had reduced her metoprolol from 100 mg to 50 twice a day because of blood pressure being low. Her blood pressure remains low sometimes in the 90s millimeters to her and 35 with heart rate in the 50s to 60s Objective - Vital Signs Vital signs: Vital Signs Temp 97.4 F L 05/02/20 07:00 Pulse 66 05/02/20 07:00 Resp 16 05/02/20 07:00 BP 100/57 05/02/20 07:00 Pulse Ox 94 L 05/02/20 07:00 Intake & Output 05/01/20 05/02/20 05/02/20 18:59 06:59 18:59 Intake Total 100 Output Total 120 350 Balance -120 -350 100 Weight 187 kg Intake: IV 100 Output: Urine 120 350 Other: Voiding Method Bedpan Bedpan # Voids 1 On examination she is awake alert oriented She is morbidly obese HEENT exam difficult exam but no JVP neck is supple no facial asymmetry Lungs clear to auscultation good air entry bilaterally somewhat difficult exam because of obesity Heart sounds are unremarkable for any murmur rub gallop Abdomen soft nontender no masses noted Extremity exam reveals trace edema Neurologically awake alert oriented but profoundly weak - Labs CBC & Chem 7: 04/30/20 15:16 05/01/20 09:21 Labs: Abnormal Lab Results - Last 24 Hours (Table) 05/01/20 05/01/20 Range/Units 09:21 09:21 Retic Count 3.6 H (0.5-2.0) % BUN 102 H* (7-17) mg/dL Creatinine 2.76 H (0.52-1.04) mg/dL Glucose 122 H (74-99) mg/dL Assessment and Plan Assessment: Impression 1. Chronic kidney disease, stage IV for is in the is 16-20 range, etiology is nephrosclerosis, Baseline creatinine 2.7-3.2. Ultrasound on 04/13/2017 shows 9.8-9.3 cm kidneys 2. Admitted with increased BUN, acute kidney injury. BUN usually runs in the 60-70 but was admitted in the 110 range. Creatinine is 2.7 which is baseline. This disproportionate increase in BUN is likely from the GI bleed as her hemoglobin has gone down from 12.9 on 04/21/2020 TO 7.8 on admission. No his tory of melena although she has dark stool but she is also on ferrous sulfate. She does have vaginal bleeding but she says is small and that should not cause her BUN to be disproportionately high. EGD shows gastritis and duodenitis this morning 05/02/2020. BUN has improved from 160s to 102 3. Blood pressure slightly low. On reduced dose of metoprolol 100 mg a day to 50 g twice a day yesterday, blood pressure remains low 4. History of obstructive sleep apnea on CPAP 5. History of vaginal bleeding and has had endometrial biopsy which was unremarkable she does bleed small amounts. Recommendation 1. Continue to reduce the metoprolol further from 50 mg twice a day to 25 minute gram twice a day and hold for blood pressure less than 110. 2. Iron saturation is pending she'll need IV iron if it is low 3. Hold diuresis for right now because of the low blood pressure.
[2020-05-02] MEDS: METOPROLOL TARTRATE 25 MG TAB PO SCH ×2 (10:37→19:47)
[2020-05-02] MEDS: POTASSIUM CHLORIDE ER 20 MEQ TAB.ER PO SCH (12:06)
[2020-05-02] MEDS: FERROUS SULFATE 325 MG TAB PO SCH (12:06)
[2020-05-02] MEDS: ASPIRIN 81 MG PO SCH (12:06)
[2020-05-02] MEDS: FOLIC ACID 1 MG TAB PO SCH (12:06)
--- NOTE | 2020-05-02 16:18 | P.PN ---
Progress Note - Text Progress Note Date: 05/02/20 Chief Complaint: Abnormal renal function History of presenting complaint: This is a pleasant 70-year-old patient was chronic stable medical conditions include CHF EF 55 and 55%, morbid obesity, chronic kidney disease stage IV secondary to nephrosclerosis, renal bone disease, anemia of chronic kidney disease, persistent atrial fibrillation, fatty liver, COPD, primary osteoarthritis, obstructive sleep apnea, chronic gout, on home oxygen, chronic medical debility at her baseline uses a lift a wheelchair. Patient is a resident at [facility]. Patient was sent in from the [facility] for worsening kidney function. His appetite is fair. Does feel at baseline tired. No fever no c hills. No respiratory symptoms. No trouble with bowel movements. Patient recently's had intermittent vaginal bleeding. Admitted with elevated BUN. Dose of beta shira was cut back because of low blood pressure. Diuretics were held. Today-EGD showed mild gastritis and duodenitis. Patient otherwise comfortable. Review of systems: Was done for constitutional, cardiovascular, GI, pulmonary. relevant finding as above Active Medications Acetaminophen (Tylenol Tab) 650 mg PO Q4H PRN PRN Reason: Pain or Fever > 100.5 Acetaminophen/Codeine Phosphate (Tylenol #3) 1 each PO TID PRN PRN Reason: Pain Last Admin: 05/02/20 08:57 Dose: 1 each Documented by: Albuterol Sulfate (Ventolin Nebulized) 2.5 mg INHALATION RT-Q4H PRN PRN Reason: Shortness Of Breath Albuterol/Ipratropium (Duoneb 0.5 Mg-3 Mg/3 Ml Soln) 3 ml INHALATION RT-QID [facility] Last Admin: 05/02/20 11:30 Dose: 3 ml Documented by: Allopurinol (Zyloprim) 100 mg PO DAILY@0800 [facility] Last Admin: 05/02/20 08:56 Dose: 100 mg Documented by: Aspirin (Aspirin) 81 mg PO DAILY@1200 [facility] Last Admin: 05/02/20 12:06 Dose: 81 mg Documented by: Atorvastatin Calcium (Lipitor) 40 mg PO HS@2100 [facility] Last Admin: 05/01/20 20:11 Dose: 40 mg Documented by: Bisacodyl (Dulcolax) 10 mg RECTAL DAILY PRN PRN Reason: Constipation Calcitriol (Rocaltrol) 0.25 mcg PO DAILY@0800 [facility] Last Admin: 05/02/20 08:55 Dose: 0.25 mcg Documented by: Calcium Acetate (Phoslo) 667 mg PO DAILY@0800 [facility] Last Admin: 05/02/20 08:55 Dose: 667 mg Documented by: Cholecalciferol (Vitamin D3 (25 Mcg = 1000 Iu)) 2,000 unit PO DAILY@1700 [facility] Last Admin: 05/01/20 17:48 Dose: 2,000 unit Documented by: Darbepoetin Juan Jose (Aranesp) 60 mcg SQ TH [facility] Famotidine (Pepcid) 40 mg PO DAILY [facility] Last Admin: 05/02/20 08:55 Dose: 40 mg Documented by: Ferrous Sulfate (Feosol) 325 mg PO DAILY@1200 [facility] Last Admin: 05/02/20 12:06 Dose: 325 mg Documented by: Folic Acid (Folic Acid) 1 mg PO DAILY@1200 [facility] Last Admin: 05/02/20 12:06 Dose: 1 mg Documented by: Sodium Chloride (Saline 0.9%) 1,000 mls @ 75 mls/hr IV .[id number] [facility] Last Admin: 05/01/20 20:11 Dose: 75 mls/hr Documented by: Isosorbide Mononitrate (Imdur) 30 mg PO DAILY@0800 [facility] Last Admin: 05/02/20 08:55 Dose: 30 mg Documented by: Lactulose (Cephulac) 20 gm PO DAILY PRN PRN Reason: Constipation Last Admin: 05/02/20 13:20 Dose: 20 gm Documented by: Loratadine (Claritin) 10 mg PO Q48H PRN PRN Reason: Allergy Symptoms Magnesium Hydroxide (Milk Of Magnesia) 7,200 mg PO DAILY PRN PRN Reason: Constipation Metoprolol Tartrate (Lopressor) 25 mg PO BID [facility] Last Admin: 05/02/20 10:37 Dose: 25 mg Documented by: Linaclotide [Linzess (]) 145 mcg PO DAILY@0800 [facility] Last Admin: 05/02/20 08:56 Dose: Not Given Documented by: Potassium Chloride (K-Dur 20) 20 meq PO DAILY@1200 [facility] Last Admin: 05/02/20 12:06 Dose: 20 meq Documented by: Senna (Senokot) 8.6 - 17.2 mg PO HS PRN PRN Reason: Constipation Physical examination: VITAL SIGNS: 96.9, 54, 18, 112/69, 97% room air GENERAL: BMI 69, laying in bed, comfortable EYES: Pupils equal. Conjunctiva pale HEENT: External appearance of nose and ears normal, oral cavity grossly normal. NECK: JVD not raised; masses not palpable. HEART: First and second heart sounds are normal; no edema. LUNGS: Respiratory rate normal; clear to auscultation. ABDOMEN: Soft, nontender, liver spleen not palpable, no masses palpable. PSYCH: Alert and oriented x3; mood and affect normal. INVESTIGATIONS, reviewed in the clinical context: Potassium 4.1 creatinine 2.76 Previous testing White count 16.7 Hemoglobin 8.5 platelets 214 potassium 4.5 bun 116 creatinine 2.73 EKG tracing atrial fibrillation rate in the 60s with some PVC April 21-hemoglobin was 12.9 Assessment: -Chronic kidney disease stage IV secondary to nephrosclerosis with some worsening -Chronic gastritis. -Also patient's been having some vaginal bleeding.-Intermittent -Chronic congestive heart failure from diastolic dysfunction EF 55-60% -Morbid obesity BMI 16.6 -Chronic kidney disease renal bone disease -Anemia of chronic kidney disease -Hypotension-patient does of beta shira and diuretics come back -Persistent atrial fibrillation, rate controlled Nonalcoholic fatty liver disease -COPD in an ex-smoker -Primary osteoarthritis -Obstructive sleep apnea -Chronic gout -Chronic hypoxic respiratory failure from COPD -Chronic medical debility and a baseline patient does use a lift to a wheelchair Plan: -Dose of Lopressor been cut back to 25 mg twice a day. Diuretics have been held. Repeat labs in the morning.
[2020-05-02] MEDS: CHOLECALCIFEROL 1,000 UNIT TAB PO SCH (17:25)
[2020-05-02] MEDS: SODIUM CHLORIDE 0.9% 1,000 ML IV SCH (19:33)
[2020-05-02] MEDS: ATORVASTATIN 40 MG TAB PO SCH (20:53)
[2020-05-03] MEDS: SODIUM CHLORIDE 0.9% 1,000 ML IV SCH (03:29)
[2020-05-03] MEDS: IPRATROPIUM-ALBUTEROL 3 ML NEB INHALATION SCH ×2 (07:51→11:49)
[2020-05-03 08:06] VITALS: TEMP 97.4
[2020-05-03] MEDS: ISOSORBIDE MONONITRATE ER 30 MG TAB.ER.24H PO SCH (08:25)
[2020-05-03] MEDS: METOPROLOL TARTRATE 25 MG TAB PO SCH (08:25)
[2020-05-03] MEDS: ALLOPURINOL 100 MG TAB PO SCH (08:25)
[2020-05-03] MEDS: FAMOTIDINE 20 MG TAB PO SCH (08:25)
[2020-05-03] MEDS: CALCIUM ACETATE 667 MG TAB PO SCH (08:25)
[2020-05-03] MEDS: CALCITRIOL 0.25 MCG CAP PO SCH (08:25)
[2020-05-03] MEDS: Linaclotide [Linzess] PO SCH (08:26)
[2020-05-03 10:51] LABS: Anisocytosis Moderate; HCT 27.7 % (34.0-46.0); HGB 8.1 gm/dL (11.4-16.0); Hypochromasia Marked; MCH 28.8 pg (25.0-35.0); MCHC 29.4 g/dL (31.0-37.0); Macrocytosis Moderate; Mean Platelet Volume 7.8; Platelet Count 187 k/uL (150-450); Poikilocytosis Slight; RBC 2.82 m/uL (3.80-5.40); RDW 20.4 % (11.5-15.5); WBC 10.1 k/uL (3.8-10.6)
[2020-05-03 11:23] LABS: Calcium 8.8 mg/dL (8.4-10.2); Potassium 3.9 mmol/L (3.5-5.1)
[2020-05-03 11:50] LABS: Ferritin 31.4 ng/mL (10.0-291.0)
[2020-05-03 12:32] LABS: % Iron Saturation 8.92 (12.00-45.00)
[2020-05-03 12:38] LABS: Folate, Serum >24.0 ng/mL
[2020-05-03] MEDS: ASPIRIN 81 MG PO SCH (13:18)
[2020-05-03] MEDS: POTASSIUM CHLORIDE ER 20 MEQ TAB.ER PO SCH (13:18)
[2020-05-03] MEDS: FERROUS SULFATE 325 MG TAB PO SCH (13:18)
[2020-05-03] MEDS: FOLIC ACID 1 MG TAB PO SCH (13:18)
--- NOTE | 2020-05-03 16:01 | PN ---
PROGRESS NOTE Patient is seen for followup for chronic kidney disease. She is currently lying in bed. Patient is complaining of soreness in the chest. She has an ice pack on. Her renal function is fairly stable. No active bleeding noted. BUN has decreased to 81. The patient received IV fluids. PHYSICAL EXAMINATION: On examination today, blood pressure was 121/55, heart rate 58 per minute. She is afebrile. EXAMINATION OF THE HEART: S1 and S2. EXAMINATION OF LUNGS: Decreased breath sounds at bases. ABDOMEN: Soft, obese, non-tender. Examination of lower extremities shows chronic skin changes, edema 1+ bilaterally. [employer] exam is grossly intact. LAB: Labs show sodium of 139, potassium 3.9, chloride 105, BUN 81, creatinine 2.77. ASSESSMENT: 1. Chronic kidney disease, NKF stage 4. Renal function at baseline. 2. Disproportionately elevated BUN, possibly related to hypovolemia, currently improved with IV fluids. No active bleeding noted, but EGD did show gastritis and duodenitis. Therefore there may have been an element of occult GI bleed. 3. History of obstructive sleep apnea. 4. History of vaginal bleeding, status post endometrial biopsy. PLAN: Continue to hold diuretics. Resume the diuretics that patient was taking in 2-3 days, starting at a lower dose, with repeat labs to be done as outpatient. The patient should follow up in the office in about 1-2 weeks' time. MMODL / IJN: [id number] /
[2020-05-03 16:12] VITALS: BP 101/57; PULSE 67; RESP 17
--- NOTE | 2020-05-03 16:46 | PN ---
PROGRESS NOTE DATE OF DICTATION: 05/03/2020 REQUESTING PHYSICIAN: Dr. Rodriguez Patient is a 70-year-old female with history of morbid obesity and history of anemia, chronic anemia of several months duration, was admitted to hospital with anemia as well as dark colored bowel movements and hemoglobin of 8.5 g/dL. She underwent an upper endoscopy by Dr. Singleton 2 days ago that showed mild gastritis but no evidence of peptic ulcer disease. Her last colonoscopy was done by Dr. Nails in May of 2017 and had small colon polyps. The patient currently is doing well. She denies any abdominal pain. She is complaining of severe constipation. She was given a dose of lactulose yesterday with no relief. No nausea, vomiting. No fever, chills, night sweats. PHYSICAL EXAMINATION: Appears comfortable, in no apparent distress. Vital signs are stable. Blood pressure is 166/55, pulse rate 68, temperature 98. HEENT: Examination unremarkable, conjunctivae are pink, sclerae nonicteric, oral cavity no lesions. NECK: No JVD or lymph node encouragement. CHEST: Clear to auscultation. HEART: Regular rate and rhythm. ABDOMEN: Soft, bowel sounds are positive, obese. EXTREMITIES: No pedal edema. NEURO: She is alert, oriented to name, place and time. LABS: From today WBC 10.1, hemoglobin 8.1, platelets 187. Rest of the labs are within normal limits. BUN is 81, creatinine 2.77. IMPRESSION: 1. Anemia with dark colored stools, status post EGD by Dr. Singleton 2 days ago that showed gastritis. Hemoglobin currently stable at 8.1 g/dL. She did have iron studies done, her iron saturation was 8.9% and serum ferritin was 31.4, consistent with iron deficiency anemia. Her last colonoscopy was [address] Nails and according to the patient was within normal limits. 2. Chronic kidney disease. 3. Morbid obesity. 4. Chronic constipation. RECOMMENDATION: 1. Continue iron supplements. 2. Agree with iron supplements. 3. Increase lactulose to 20 g 3 times daily to help with the constipation. 4. Discussed with the patient the need for colonoscopy on outpatient basis. 5. Will follow with you closely. Thank you for this consultation. MMODL / IJN: [id number] /
[2020-05-04] MEDS ORDERED: LACTULOSE 20 GM/30 ML CUP PO SCH (09:00)
[2020-05-04] MEDS ORDERED: BISACODYL 10 MG SUPP RECTAL SCH (09:00)
--- NOTE | 2020-05-04 10:38 | P.DS ---
Providers Date of admission: 04/30/20 16:09 Expected date of discharge: 05/03/20 Attending physician: Leonardo Stephens Consults: 04/30/20 16:09 Consult Physician Routine Consulting Provider: Jose Carlos Singleton Consult Reason/Comments: gib Do you want consulting provider notified?: Yes Consult Physician Routine Consulting Provider: Natasha Vaughan Consult Reason/Comments: arf Do you want consulting provider notified?: Yes Primary care physician: [facility] Hospital Course: Chief Complaint: Abnormal renal function History of presenting complaint: This is a pleasant 70-year-old patient was chronic stable medical conditions include CHF EF 55 and 55%, morbid obesity, chronic kidney disease stage IV secondary to nephrosclerosis, renal bone disease, anemia of chronic kidney disease, persistent atrial fibrillation, fatty liver, COPD, primary osteoarthritis, obstructive sleep apnea, chronic gout, on home oxygen, chronic medical debility at her baseline uses a lift a wheelchair. Patient is a resident at [facility]. Patient was sent in from the [facility] for worsening kidney function. His appetite is fair. Does feel at baseline tired. No fever no chills. No respiratory symptoms. No trouble with bowel movements. Patient recently's had intermittent vaginal bleeding.-Patient did follow with her SAP SECURITY ARCHITECT earlier this year. Admitted with elevated BUN. Dose of beta shira was cut back because of low blood pressure. Diuretics were held. EGD showed mild gastritis and duodenitis. Blood loss anemia felt to be from vaginal bleeding intermittently. Today-. Comfortable. BUN is coming down. Care was discussed at length with the patient. She will follow with her SAP SECURITY ARCHITECT. Also with nephrology. Discussion and discharge planning more than 35 minutes Consultation: Dr. Barreto from GI from nephrology Physical examination: VITAL SIGNS: 97.4, 67, 17, 101/57, 99% on room air GENERAL: BMI 69, laying in bed, comfortable EYES: Pupils equal. Conjunctiva pale HEENT: External appearance of nose and ears normal, oral cavity grossly normal. NECK: JVD not raised; masses not palpable. HEART: First and second heart sounds are normal; no edema. LUNGS: Respiratory rate normal; clear to auscultation. ABDOMEN: Soft, nontender, liver spleen not palpable, no masses palpable. PSYCH: Alert and oriented x3; mood and affect normal. INVESTIGATIONS, reviewed in the clinical context: White count 10.1 hemoglobin 8.1 potassium 3.9 bun 81 creatinine 2.77 Previous testing White count 16.7 Hemoglobin 8.5 platelets 214 potassium 4.5 bun 116 creatinine 2.73 EKG tracing atrial fibrillation rate in the 60s with some PVC April 21-hemoglobin was 12.9 Assessment: -Chronic kidney disease stage IV secondary to nephrosclerosis with some worsening -Chronic gastritis. -History of intermittent vaginal bleeding that is being followed up by [employer] SECURITY ARCHITECT -Chronic congestive heart failure from diastolic dysfunction EF 55-60% -Morbid obesity BMI 16.6 -Chronic kidney disease renal bone disease -Anemia of chronic kidney disease -Hypotension-patient does of beta shira and diuretics come back -Persistent atrial fibrillation, rate controlled -Nonalcoholic fatty liver disease -COPD in an ex-smoker -Primary osteoarthritis -Obstructive sleep apnea-uses CPAP -Chronic gout -Chronic hypoxic respiratory failure from COPD -Chronic medical debility and a baseline patient does use a lift to a wheelchair Disposition: [facility] Patient Condition at Discharge: Stable Plan - Discharge Summary New Discharge Prescriptions: New Metoprolol Tartrate [Lopressor] 25 mg PO BID tab Famotidine [Pepcid] 20 mg PO BID #1 tablet Continue Folic Acid 1 mg PO DAILY@1200 Cholecalciferol [Vitamin D3 (25 Mcg = 1000 Iu)] 2,000 unit PO DAILY@1700 Bisacodyl [Dulcolax] 10 mg RECTAL DAILY PRN PRN Reason: Constipation Ferrous Sulfate [Iron (65 MG Elemental)] 325 mg PO DAILY@1200 Atorvastatin [Lipitor] 40 mg PO HS@2100 Epoetin Juan Jose [Procrit] 20,000 unit SQ TH Linaclotide [Linzess] 145 mcg PO DAILY@0800 Calcium Acetate [PhosLo] 667 mg PO DAILY@0800 Sennosides [Senna] 8.6 - 17.2 mg PO HS PRN PRN Reason: Constipation Lactulose 20 mg PO DAILY PRN PRN Reason: Constipation Calcitriol 0.25 mcg PO DAILY@0800 Na Phos,M-B/Na Phos,Di-Ba [Fleet Adult] 133 ml RECTAL DAILY PRN PRN Reason: Constipation Isosorbide Mononitrate ER [Imdur] 30 mg PO DAILY@0800 Ipratropium-Albuterol Nebulize [Duoneb 0.5 mg-3 mg/3 ml Soln] 3 ml INHALATION RT-QID Aspirin 81 mg PO DAILY@1200 Acetaminophen Tab [Tylenol] 650 mg PO Q4H PRN PRN Reason: Pain Or Fever > 100.5 Co Q-10 60mg 60 mg PO DAILY@1700 Hydrocortisone Cream [Hydrocortisone 2.5% Cream] 1 applic TOPICAL BID Allopurinol [Zyloprim] 100 mg PO DAILY@0800 Loratadine [Claritin] 10 mg PO Q48H PRN PRN Reason: Allergy Symptoms Albuterol Sulfate [Albuterol Sulfate Hfa] 2 puff PO RT-Q4H PRN PRN Reason: Shortness Of Breath Magnesium Hydroxide [Milk of Magnesia Concentrate] 7,200 mg PO DAILY PRN PRN Reason: Constipation Acetaminophen-Codeine 300-30mg [Tylenol w/codeine #3] 1 tab PO TID PRN #9 tab PRN Reason: Pain Changed Torsemide [Demadex] 40 mg PO MOWEFR #0 Potassium Chloride [K-Tab ER] 20 meq PO MOWEFR #0 Discontinued Hydrocortisone Cream [Hydrocortisone 2.5% Cream] 1 applic TOPICAL DAILY PRN PRN Reason: RASH ON BUTTOCKS Metoprolol Tartrate [Lopressor] 100 mg PO BID@0800,1700 Discharge Medication List Folic Acid 1 mg PO DAILY@1200 12/19/16 [History] Cholecalciferol [Vitamin D3 (25 Mcg = 1000 Iu)] 2,000 unit PO DAILY@1700 12/30/16 [History] Bisacodyl [Dulcolax] 10 mg RECTAL DAILY PRN 02/23/17 [History] Ferrous Sulfate [Iron (65 MG Elemental)] 325 mg PO DAILY@1200 02/23/17 [History] Atorvastatin [Lipitor] 40 mg PO HS@2100 06/25/17 [History] Calcium Acetate [PhosLo] 667 mg PO DAILY@0800 08/23/17 [History] Epoetin Juan Jose [Procrit] 20,000 unit SQ TH 08/23/17 [History] Linaclotide [Linzess] 145 mcg PO DAILY@0800 08/23/17 [History] Calcitriol 0.25 mcg PO DAILY@0800 11/20/18 [History] Lactulose 20 mg PO DAILY PRN 11/20/18 [History] Sennosides [Senna] 8.6 - 17.2 mg PO HS PRN 11/20/18 [History] Acetaminophen Tab [Tylenol] 650 mg PO Q4H PRN 05/23/19 [History] Aspirin 81 mg PO DAILY@1200 05/23/19 [History] Co Q-10 60mg 60 mg PO DAILY@1700 05/23/19 [History] Ipratropium-Albuterol Nebulize [Duoneb 0.5 mg-3 mg/3 ml Soln] 3 ml INHALATION RT-QID 05/23/19 [History] Isosorbide Mononitrate ER [Imdur] 30 mg PO DAILY@0800 05/23/19 [History] Na Phos,M-B/Na Phos,Di-Ba [Fleet Adult] 133 ml RECTAL DAILY PRN 05/23/19 [History] Allopurinol [Zyloprim] 100 mg PO DAILY@0800 10/28/19 [History] Hydrocortisone Cream [Hydrocortisone 2.5% Cream] 1 applic TOPICAL BID 10/28/19 [History] Albuterol Sulfate [Albuterol Sulfate Hfa] 2 puff PO RT-Q4H PRN 04/30/20 [History] Loratadine [Claritin] 10 mg PO Q48H PRN 04/30/20 [History] Magnesium Hydroxide [Milk of Magnesia Concentrate] 7,200 mg PO DAILY PRN 04/30/20 [History] Acetaminophen-Codeine 300-30mg [Tylenol w/codeine #3] 1 tab PO TID PRN #9 tab 05/03/20 [Rx] Famotidine [Pepcid] 20 mg PO BID #1 tablet 05/03/20 [Rx] Metoprolol Tartrate [Lopressor] 25 mg PO BID tab 05/03/20 [Rx] Potassium Chloride [K-Tab ER] 20 meq PO MOWEFR #0 05/03/20 [Rx] Torsemide [Demadex] 40 mg PO MOWEFR #0 05/03/20 [Rx] Follow up Appointment(s)/Referral(s): Natasha Vaughan MD [STAFF PHYSICIAN] - 1 Week Jake Rodriguez MD [Primary Care Provider] - 1-2 days Activity/Diet/Wound Care/Special Instructions: ellie
--- NOTE | 2020-05-05 15:15 | CDI ---
Documentation Clarification Form Date: 05/05/20 From: Ashly Hernández CCS Phone: If you have a question about this query, please contact Carolin Bowser, Rubber Mill Operator at [phone] between 8am and 5pm. Admit Date: 04/30/20 Discharge Date:05/03/20 Patient Name: Yojana Anand Visit Number: [id number] ATTENTION: The Clinical Documentation Specialists (CDI) and [facility] Coding Staff appreciate your assistance in clarifying documentation. Please respond to the clarification below the line at the bottom and electronically sign. The CDI & [facility] Coding staff will review the response and follow-up if needed. Please note: Queries are made part of the Legal Health Record. If you have any questions, please contact the author of this message via ITS. Dear Dr. Stephens, Blood loss anemia felt to be from vaginal bleeding intermittently is documented in the DS. History/Risk Factors: Vaginal bleeding, Melena, CKD, HTN, Morbid obesity Clinical indicators: Blood loss anemia Hemoglobin: 8.5, 8.1 Hematocrit: 29.2, 27.7 Treatment: Feosol 325 mg PO daily In order to capture the severity of condition, please clarify the acuity of anemia if known:. Acute blood loss anemia Acute on chronic blood loss anemia Chronic blood loss anemia Unable to determine Other, please specify Acute blood loss anemia likely from vaginal bleeding intermittent _ MTDD
--- NOTE | 2020-05-05 15:24 | CDI ---
Documentation Clarification Form Date: 05/05/20 From: Ashly Hernández CCS Phone: If you have a question about this query, please contact Carolin Bowser, Statistical Analyst at [phone] between 8am and 5pm. Admit Date: 04/30/20 Discharge Date: 05/03/20 Patient Name: Yojana Anand Visit Number: [id number] ATTENTION: The Clinical Documentation Specialists (CDI) and [facility] Coding Staff appreciate your assistance in clarifying documentation. Please respond to the clarification below the line at the bottom and electronically sign. The CDI & [facility] Coding staff will review the response and follow-up if needed. Please note: Queries are made part of the Legal Health Record. If you have any questions, please contact the author of this message via ITS. Dear Dr. Singleton, GI bleed is documented in the H&P, PNs, Consult, Procedure. Patient history/risk factors: CKD, Melena, Morbid obesity, HTN, CHF Clinical Indicators: Melena EGD/colonoscopy performed and findings: Mild gastritis antrum and body, biopsied, mild duodenitis, biopsied, small hiatal hernia. Labs: Hgb 8.1, Hct 27.7 Treatment: Feosol 325 mg PO daily Other treatment: Outpatient colonoscopy recommended In your professional opinion, can you please clarify the underlying cause of GI bleed if known? Gastritis with bleed Duodenitis with bleed GI bleed ruled out Other, please specify Unable to determine GI BLEED RULED OUT MTDD
[2020-05-06] MEDS ORDERED: DARBEPOETIN ALFA 60 MCG/0.3 ML SYRINGE SQ SCH (09:00)
== END 2020-05-03 16:38 | DRG 683 ==
LOC: EC 14:49 → 4SSUR 16:09
PROVIDERS: ADMIT Hospitalist; ATTEND Hospitalist
PROC: 0DB98ZX Excision of Duodenum, Via Natural or Artificial Opening Endoscopic, Diagnostic (ICD-10-PCS; 2020-05-02)
PROC: 0DB78ZX Excision of Stomach, Pylorus, Via Natural or Artificial Opening Endoscopic, Diagnostic (ICD-10-PCS; principal; 2020-05-02 08:00)
DX: N17.9 Acute kidney failure, unspecified (principal); I50.32 Chronic diastolic (congestive) heart failure; J96.11 Chronic respiratory failure with hypoxia; I13.0 Hypertensive heart and chronic kidney disease with heart failure and stage 1 through stage 4 chronic kidney disease, or unspecified chronic kidney disease; I48.19 Other persistent atrial fibrillation; Z68.44 Body mass index [BMI] 60.0-69.9, adult; D62 Acute posthemorrhagic anemia; Z11.59 Encounter for screening for other viral diseases; D63.1 Anemia in chronic kidney disease; N18.4 Chronic kidney disease, stage 4 (severe); E83.9 Disorder of mineral metabolism, unspecified; E11.22 Type 2 diabetes mellitus with diabetic chronic kidney disease; K76.0 Fatty (change of) liver, not elsewhere classified; I95.9 Hypotension, unspecified; J44.9 Chronic obstructive pulmonary disease, unspecified; E66.01 Morbid (severe) obesity due to excess calories; R41.82 Altered mental status, unspecified; G47.33 Obstructive sleep apnea (adult) (pediatric); E78.5 Hyperlipidemia, unspecified; M1A.9XX0 Chronic gout, unspecified, without tophus (tophi); M19.91 Primary osteoarthritis, unspecified site; R53.81 Other malaise; N27.1 Small kidney, bilateral; N93.9 Abnormal uterine and vaginal bleeding, unspecified; K59.09 Other constipation; K44.9 Diaphragmatic hernia without obstruction or gangrene; E86.1 Hypovolemia; K29.80 Duodenitis without bleeding; K29.50 Unspecified chronic gastritis without bleeding; N95.0 Postmenopausal bleeding; Z79.899 Other long term (current) drug therapy; Z79.82 Long term (current) use of aspirin; Z87.01 Personal history of pneumonia (recurrent); Z98.890 Other specified postprocedural states; Z87.891 Personal history of nicotine dependence; Z99.81 Dependence on supplemental oxygen; Z99.3 Dependence on wheelchair; Z87.440 Personal history of urinary (tract) infections; Z86.010 Personal history of colon polyps; Z88.8 Allergy status to other drugs, medicaments and biological substances; Z91.041 Radiographic dye allergy status; Z82.49 Family history of ischemic heart disease and other diseases of the circulatory system; Z80.0 Family history of malignant neoplasm of digestive organs
CPT/HCPCS: 36415; 43239; 80048; 80053; 82550; 82607; 82728; 82746; 83540; 83550; 83605; 83735; 83880; 84100; 84484; 85025; 85027; 85045; 86850; 86900; 86901; 88305; 93005; 94640; 94760; 96360; 99285

== ENCOUNTER 2020-06-02 12:31 | Inpatient (IN) | payer MEDICARE, OTHER ==
--- NOTE | 2020-06-02 12:48 | ED ---
General Adult HPI - General Chief complaint: Shortness of Breath Stated complaint: CHF Time Seen by Provider: 06/02/20 12:34 Source: patient, RN notes reviewed, old records reviewed Mode of arrival: EMS Limitations: no limitations - History of Present Illness Initial comments: 70-year-old female presented from the skilled nursing with increased dyspnea and hypoxia. Patient has history of congestive heart failure, chronic kidney disease, atrial fibrillation. Over the past one week she has had an 11 pound weight gain. She reports worsening lower extremity edema. Patient is unable to ambulate, currently bedbound. She denies fever. She does report a mild cough. No chest pain. No abdominal pain nausea vomiting. - Related Data Home Medications Medication Instructions Recorded Confirmed Folic Acid 1 mg PO DAILY@1200 12/19/16 06/02/20 Cholecalciferol [Vitamin D3 (25 2,000 unit PO DAILY@1700 12/30/16 06/02/20 Mcg = 1000 Iu)] Ferrous Sulfate [Iron (65 MG 325 mg PO DAILY@1200 02/23/17 06/02/20 Elemental)] bisacodyL [Dulcolax] 10 mg RECTAL DAILY PRN 02/23/17 06/02/20 Atorvastatin [Lipitor] 40 mg PO HS@2100 06/25/17 06/02/20 Calcium Acetate [PhosLo] 667 mg PO DAILY@0808/23/17 06/02/20 Epoetin Juan Jose [Procrit] 20,000 unit SQ TH 08/23/17 06/02/20 Linaclotide [Linzess] 145 mcg PO DAILY@0800 08/23/17 06/02/20 Lactulose 10 mg PO BID PRN 11/20/18 06/02/20 Sennosides [Senna] 8.6 - 17.2 mg PO HS PRN 11/20/18 06/02/20 calcitrioL [Calcitriol] 0.25 mcg PO DAILY@1700 11/20/18 06/02/20 Acetaminophen Tab [Tylenol] 650 mg PO Q4H PRN 05/23/19 06/02/20 Aspirin 81 mg PO DAILY@1200 05/23/19 06/02/20 Co Q-10 60mg 60 mg PO DAILY@1700 05/23/19 06/02/20 Ipratropium-Albuterol Nebulize 3 ml INHALATION RT-QID 05/23/19 06/02/20 [Duoneb 0.5 mg-3 mg/3 ml Soln] Isosorbide Mononitrate ER [Imdur] 30 mg PO DAILY@0800 05/23/19 06/02/20 Hydrocortisone Cream 1 applic TOPICAL BID 10/28/19 06/02/20 [Hydrocortisone 2.5% Cream] allopurinoL [Zyloprim] 100 mg PO DAILY@0800 10/28/19 06/02/20 Albuterol Sulfate [Albuterol 2 puff PO RT-Q4H PRN 04/30/20 06/02/20 Sulfate Hfa] Loratadine [Claritin] 10 mg PO Q48H PRN 04/30/20 06/02/20 Magnesium Hydroxide [Milk of 7,200 mg PO DAILY PRN 04/30/20 06/02/20 Magnesia Concentrate] Caldesene Powder 1 applic TOPICAL BID 06/02/20 06/02/20 Metoprolol Tartrate [Lopressor] 25 mg PO BID@0800,1700 06/02/20 06/02/20 Potassium Chloride [Klor-Con 10] 10 meq PO SUTUTHSA@1700 06/02/20 06/02/20 Torsemide [Demadex] 40 mg PO DAILY@0800 06/02/20 06/02/20 Previous Rx's Medication Instructions Recorded Acetaminophen-Codeine 300-30mg 1 tab PO TID PRN #9 tab 05/03/20 [Tylenol w/codeine #3] Allergies Allergy/AdvReac Type Severity Reaction Status Date / Time Iodinated Contrast Media AdvReac SEE COMMENT Verified 06/02/20 13:03 [Iodinated Contrast- Oral and IV Dye] sodium phosphate AdvReac SEE COMMENT Verified 06/02/20 13:03 [From Fleet Enema] NEPHROTOXINS AdvReac SEE COMMENT Uncoded 06/02/20 13:03 Review of Systems ROS Statement: Those systems with pertinent positive or pertinent negative responses have been documented in the HPI. ROS Other: All systems not noted in ROS Statement are negative. Past Medical History Past Medical History: Atrial Fibrillation, Asthma, Heart Failure, Hyperlipidemia, Hypertension, Osteoarthritis (OA), Pneumonia, Renal Disease, Sleep Apnea/CPAP/BIPAP Additional Past Medical History / Comment(s): BRUNILDA with CPAP, gout bilateral legs/feet, arthritis multiple joints, sinus problems, past left lower leg cellulitis and wound, UTIs. Morbid obesity, 02 2 LITERS N/C, gastritis,"in my 20's i had ulcers", anemia "has had blood transfusion, and iron infusions" History of Any Multi-Drug Resistant Organisms: Other MDRO Past Surgical History: Section, Ear Surgery Additional Past Surgical History / Comment(s): Debridement bilateral pedal toenails, colonoscopy-normal, L ear benign tumor removed, x 2. pt currently resides at [facility] Past Anesthesia/Blood Transfusion Reactions: No Reported Reaction Additional Past Anesthesia/Blood Transfusion Reaction / Comment(s): blood transfusions- no reaction Past Psychological History: No Psychological Hx Reported Smoking Status: Former smoker Past Alcohol Use History: Rare Past Drug Use History: None Reported - Past Family History Mother Family Medical History: Cancer Additional Family Medical History / Comment(s): Mother of colon cancer at the age of 54 yrs. Father Family Medical History: Myocardial Infarction (HI) Additional Family Medical History / Comment(s): Father of a massive HI at the age of 60 yrs. General Exam Limitations: no limitations General appearance: alert, in no apparent distress Head exam: Present: atraumatic, normocephalic Eye exam: Present: normal appearance, PERRL ENT exam: Present: normal exam Neck exam: Present: normal inspection. Absent: tenderness, meningismus Respiratory exam: Present: rales, decreased breath sounds. Absent: respiratory distress Cardiovascular Exam: Present: regular rate, irregular rhythm GI/Abdominal exam: Present: soft. Absent: distended, tenderness, guarding Extremities exam: Present: pedal edema Neurological exam: Present: alert, oriented X3, CN II-XII intact. Absent: motor sensory deficit Psychiatric exam: Present: normal affect, normal mood Skin exam: Present: warm, dry, intact. Absent: cyanosis, diaphoretic Course Vital Signs 06/02/20 06/02/20 12:34 12:41 Temperature 97.4 F L Pulse Rate 68 66 Respiratory 18 18 Rate Blood Pressure 119/4 113/60 EKG Findings - EKG Comments: EKG Findings:: EKG: Atrial fibrillation, no ST segment elevation, rate of 66, QRS duration 104, QTC 431 Medical Decision Making - Medical Decision Making 70-year-old female presenting with hypoxia, initial pulse ox 86 on room air. She has been on supplemental oxygen the past one week. She denies pain complaints. She does report some mild dyspnea and cough. Patient is afebrile, with stable vitals other than mild hypoxia. She's in atrial fibrillation which is rate controlled. She has no chest pain. No fever. Workup reveals anemia which is stable for this patient at 7.9. She has a creatinine of 3.62 which is baseline. She has an elevated BNP at 11,000, negative troponin. Chest x-ray shows complete opacification of the left hemithorax, there is good aeration on the right lung. I did discuss case with Dr. ramirezion will admit. Patient given Lasix, DuoNeb antibiotics in the emergency department. She will be admitted with pulmonology, Dr. James on consult. - Lab Data Result diagrams: 06/02/20 12:47 06/02/20 12:47 Lab Results 06/02/20 06/02/20 06/02/20 Range/Units 12:47 12:47 12:47 WBC 9.3 (3.8-10.6) k/uL RBC 2.85 L (3.80-5.40) m/uL Hgb 7.9 L (11.4-16.0) gm/dL Hct 28.5 L (34.0-46.0) % MCV 100.1 H (80.0-100.0) fL MCH 27.5 (25.0-35.0) pg MCHC 27.5 L (31.0-37.0) g/dL RDW 19.8 H (11.5-15.5) % Plt Count 159 (150-450) k/uL Neutrophils % 84 % Lymphocytes % 5 % Monocytes % 8 % Eosinophils % 1 % Basophils % 0 % Neutrophils # 7.8 H (1.3-7.7) k/uL Lymphocytes # 0.5 L (1.0-4.8) k/uL Monocytes # 0.8 (0-1.0) k/uL Eosinophils # 0.1 (0-0.7) k/uL Basophils # 0.0 (0-0.2) k/uL Hypochromasia Marked Poikilocytosis Slight Anisocytosis Slight Macrocytosis Moderate PT 12.0 (9.0-12.0) sec INR 1.2 H (<1.2) APTT 24.5 (22.0-30.0) sec Sodium 138 (137-145) mmol/L Potassium 4.9 (3.5-5.1) mmol/L Chloride 103 (98-107) mmol/L Carbon Dioxide 26 (22-30) mmol/L Anion Gap 9 mmol/L BUN 90 H (7-17) mg/dL Creatinine 3.62 H (0.52-1.04) mg/dL Est GFR (CKD-EPI)AfAm 14 (>60 ml/min/1.73 sqM) Est GFR (CKD-EPI)NonAf 12 (>60 ml/min/1.73 sqM) Glucose 117 H (74-99) mg/dL Calcium 9.6 (8.4-10.2) mg/dL Magnesium 2.4 H (1.6-2.3) mg/dL Total Bilirubin 0.5 (0.2-1.3) mg/dL AST 16 (14-36) U/L ALT 13 (4-34) U/L Alkaline Phosphatase 148 H (38-126) U/L Troponin I (0.000-0.034) ng/mL NT-Pro-B Natriuret Pep pg/mL Total Protein 6.9 (6.3-8.2) g/dL Albumin 3.3 L (3.5-5.0) g/dL 06/02/20 06/02/20 Range/Units 12:47 12:47 WBC (3.8-10.6) k/uL RBC (3.80-5.40) m/uL Hgb (11.4-16.0) gm/dL Hct (34.0-46.0) % MCV (80.0-100.0) fL MCH (25.0-35.0) pg MCHC (31.0-37.0) g/dL RDW (11.5-15.5) % Plt Count (150-450) k/uL Neutrophils % % Lymphocytes % % Monocytes % % Eosinophils % % Basophils % % Neutrophils # (1.3-7.7) k/uL Lymphocytes # (1.0-4.8) k/uL Monocytes # (0-1.0) k/uL Eosinophils # (0-0.7) k/uL Basophils # (0-0.2) k/uL Hypochromasia Poikilocytosis Anisocytosis Macrocytosis PT (9.0-12.0) sec INR (<1.2) APTT (22.0-30.0) sec Sodium (137-145) mmol/L Potassium (3.5-5.1) mmol/L Chloride (98-107) mmol/L Carbon Dioxide (22-30) mmol/L Anion Gap mmol/L BUN (7-17) mg/dL Creatinine (0.52-1.04) mg/dL Est GFR (CKD-EPI)AfAm (>60 ml/min/1.73 sqM) Est GFR (CKD-EPI)NonAf (>60 ml/min/1.73 sqM) Glucose (74-99) mg/dL Calcium (8.4-10.2) mg/dL Magnesium (1.6-2.3) mg/dL Total Bilirubin (0.2-1.3) mg/dL AST (14-36) U/L ALT (4-34) U/L Alkaline Phosphatase (38-126) U/L Troponin I <0.012 (0.000-0.034) ng/mL NT-Pro-B Natriuret Pep 40696 pg/mL Total Protein (6.3-8.2) g/dL Albumin (3.5-5.0) g/dL Disposition Clinical Impression: Chronic disease anemia, Pleural effusion, Congestive heart failure (CHF) Disposition: ADMITTED IP TO THIS [facility] Condition: Stable Is patient prescribed a controlled substance at d/c from ED?: No Referrals: Jake Rodriguez MD [Primary Care Provider] - 1-2 days Decision to Admit Reason: Admit from EC Decision Date: 06/02/20 Decision Time: 14:02
[2020-06-02 13:10] LABS: Anisocytosis Slight; Basophils % (A) 0 %; Eosinophils # (A) 0.1 k/uL (0-0.7); Eosinophils % (A) 1 %; HCT 28.5 % (34.0-46.0); HGB 7.9 gm/dL (11.4-16.0); Hypochromasia Marked; Lymphocytes # (A) 0.5 k/uL (1.0-4.8); Lymphocytes % (A) 5 %; MCH 27.5 pg (25.0-35.0); MCHC 27.5 g/dL (31.0-37.0); MCV 100.1 fL (80.0-100.0); Macrocytosis Moderate; Mean Platelet Volume 9.1; Monocytes # (A) 0.8 k/uL (0-1.0); Monocytes % (A) 8 %; Neutrophils # (A) 7.8 k/uL (1.3-7.7); Neutrophils % (A) 84 %; Platelet Count 159 k/uL (150-450); Poikilocytosis Slight; RBC 2.85 m/uL (3.80-5.40); RDW 19.8 % (11.5-15.5); WBC 9.3 k/uL (3.8-10.6)
--- NOTE | 2020-06-02 13:13 | XR ---
EXAMINATION TYPE: XR chest 1V portable DATE OF EXAM: 06/02/2020 COMPARISON: Chest x-ray May 27, 2019 and older studies HISTORY: Shortness of breath for a few days. TECHNIQUE: Single AP portable frontal view of the chest is obtained. FINDINGS: There is now completely opacified left hemithorax silhouetting left heart border and hemid iaphragm. Right lung remains clear. Persistent. Atherosclerotic change in aortic knob. No definitiv e new mediastinal shift. Degenerative change bilateral glenohumeral joints redemonstrated. IMPRESSION: New Completely opacified left hemithorax without obvious mediastinal shift. Consider ob structing central endobronchial mass and/or mucous plugging. Short-term follow-up advised.
[2020-06-02 13:26] LABS: INR 1.2 (<1.2); Partial Thromboplastin Time 24.5 sec (22.0-30.0)
[2020-06-02 13:33] LABS: Albumin 3.3 g/dL (3.5-5.0); Calcium 9.6 mg/dL (8.4-10.2); Magnesium 2.4 mg/dL (1.6-2.3); Potassium 4.9 mmol/L (3.5-5.1); Total Bilirubin 0.5 mg/dL (0.2-1.3); Total Protein 6.9 g/dL (6.3-8.2)
[2020-06-02] MEDS ORDERED: ALBUTEROL NEBULIZED 2.5 MG/3 ML INHALATION STA (13:50)
[2020-06-02] MEDS ORDERED: cefTRIAXone IN SWFI 1,000 MG/10 ML SYRINGE IVP STA (13:50)
[2020-06-02] MEDS ORDERED: IPRATROPIUM-ALBUTEROL 3 ML NEB INHALATION STA (13:50)
[2020-06-02] MEDS ORDERED: FUROSEMIDE 10 MG/ML 4 ML VIAL IV STA (13:54)
--- NOTE | 2020-06-02 16:24 | P.CNPUL ---
History of Present Illness Consult date: 06/02/20 Reason for consult: dyspnea, pleural effusion History of present illness: 70-year-old female patient, [facility] resident who was referred back to the emergency department because of worsening shortness of breath and hypoxemia. The patient had significant amount of weight gain in the order of 11 pounds over this past week. She also reported worsening lower extremity edema. She was unable to ambulate. She is currently bedbound. She is morbidly obese with a BMI of 34.2. No fever no chills. No aspiration. She has a mild cough. No c hest pain. The chest x-rays showing complete opacification of the left lung without any significant shift of the trachea or volume loss. The left mainstem bronchus is currently off. White cell count 9.3 with hemoglobin of 7.9. Coagulation profile is within normal. 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 Serum bicarb is 29 with a sodium of 138. The liver functions is on essentially within normal limits. Albumin is at 3.3 with a total protein of 6.9. ProBNP level was 11,300. Currently, the patient is on 2 L of oxygen by nasal cannula. Pulse ox and order of 97%. Long with stage IV kidney disease secondary to do hypertensive nephrosclerosis. She also has chronic anemia, chronic proximal atrial fibrillation, COPD, osteoarthritis, obstructive sleep apnea, gout and she Zyvox and dependent and she has home O2. She is medically debilitated and she is a left and a walker. She is a resident of a [facility]. During her most recent hospitalization, the anemia was further worked up by EGD EGD showed mild gastritis. There was mild duodenitis. There was a small hiatal hernia. Review of Systems Constitutional: Reports chronic pain, Reports daytime sleepiness, Reports fatig ue, Reports poor appetite, Reports weight gain Eyes: denies as per HPI, denies blurred vision, denies bulging eye, denies decreased vision, denies diplopia, denies discharge, denies dry eye, denies irritation, denies itching, denies pain, denies photophobia, denies loss of p eripheral vision, denies loss of vision, denies tunnel vision/blind spots Ears: deny: decreased hearing, ear discharge, earache, tinnitus Ears, nose, mouth and throat: Denies headache, Denies sore throat Breasts: absent: as per HPI, change in shape, gynecomastia, masses, nipple discharge, pain, skin changes, swelling Cardiovascular: Reports decreased exercise tolerance, Reports dyspnea on exertion, Reports leg edema, Reports shortness of breath Respiratory: Reports dyspnea, Reports home oxygen Gastrointestinal: Reports as per HPI Genitourinary: Reports as per HPI Menstruation: Reports as per HPI (Vaginal bleed) Musculoskeletal: Reports limitation of motion, Reports muscle weakness Musculoskeletal: bilateral: ankle swelling, absent: ankle pain, ankle stiffness Integumentary: Reports as per HPI Neurological: Reports as per HPI, Reports gait dysfunction, Reports weakness Psychiatric: Reports as per HPI Endocrine: Reports as per HPI, Reports fatigue Hematologic/Lymphatic: Reports as per HPI Allergic/Immunologic: Reports as per HPI Past Medical History Past Medical History: Atrial Fibrillation, Asthma, Heart Failure, Hyperlipidemia, Hypertension, Liver Disease, Osteoarthritis (OA), Pneumonia, Renal Disease, Sleep Apnea/CPAP/BIPAP Additional Past Medical History / Comment(s): BRUNILDA with CPAP, O2 at 2L/NC during day, morbid obesity, intermittent vaginal bleed, fatty liver, CKD stage IV/mineral bone disease, UTIs, murmur, gout bilateral legs/feet, arthritis multiple joints, sinus problems, past left lower leg cellulitis and wound, gastritis,"in my 20's i had ulcers", anemia "has had blood transfusion, and iron infusions", hiatal hernia, current excoriation R side abdominal fold and [facility] placing cream to buttock which pt states is red. History of Any Multi-Drug Resistant Organisms: Other MDRO Past Surgical History: Section, Ear Surgery Additional Past Surgical History / Comment(s): Debridement bilateral feet toenails, 04/2020 EGDcolonoscopy-normal, L ear benign tumor removed, x 2. Past Anesthesia/Blood Transfusion Reactions: No Reported Reaction Additional Past Anesthesia/Blood Transfusion Reaction / Comment(s): blood transfusions- no reaction Past Psychological History: No Psychological Hx Reported Additional Psychological History / Comment(s): Pt currently at [facility]. Pt is not ambulatory-they use lift to w/c Smoking Status: Former smoker Past Alcohol Use History: Rare Additional Past Alcohol Use History / Comment(s): started smoking at age 21 and quit 2007 a pack would last a week. Past Drug Use History: None Reported - Past Family History Mother Family Medical History: Cancer Additional Family Medical History / Comment(s): Mother of colon cancer at the age of 54 yrs. Father Family Medical History: Myocardial Infarction (ND) Additional Family Medical History / Comment(s): Father of a massive ND at the age of 60 yrs. Medications and Allergies Home Medications Medication Instructions Recorded Confirmed Type Folic Acid 1 mg PO DAILY@1200 12/19/16 06/02/20 History Cholecalciferol [Vitamin D3 (25 2,000 unit PO DAILY@17012/30/16 06/02/20 History Mcg = 1000 Iu)] Ferrous Sulfate [Iron (65 MG 325 mg PO DAILY@1200 02/23/17 06/02/20 History Elemental)] bisacodyL [Dulcolax] 10 mg RECTAL DAILY PRN 02/23/17 06/02/20 History Atorvastatin [Lipitor] 40 mg PO HS@2100 06/25/17 06/02/20 History Calcium Acetate [PhosLo] 667 mg PO DAILY@0808/23/17 06/02/20 History Epoetin Juan Jose [Procrit] 20,000 unit SQ TH 08/23/17 06/02/20 History Linaclotide [Linzess] 145 mcg PO DAILY@0808/23/17 06/02/20 History Lactulose 10 mg PO BID PRN 11/20/18 06/02/20 History Sennosides [Senna] 8.6 - 17.2 mg PO HS PRN 11/20/18 06/02/20 History calcitrioL [Calcitriol] 0.25 mcg PO DAILY@169911/20/18 06/02/20 History Acetaminophen Tab [Tylenol] 650 mg PO Q4H PRN 05/23/19 06/02/20 History Aspirin 81 mg PO DAILY@1200 05/23/19 06/02/20 History Co Q-10 60mg 60 mg PO DAILY@169905/23/19 06/02/20 History Ipratropium-Albuterol Nebulize 3 ml INHALATION RT-QID 05/23/19 06/02/20 History [Duoneb 0.5 mg-3 mg/3 ml Soln] Isosorbide Mononitrate ER [Imdur] 30 mg PO DAILY@0800 05/23/19 06/02/20 History Hydrocortisone Cream 1 applic TOPICAL BID 10/28/19 06/02/20 History [Hydrocortisone 2.5% Cream] allopurinoL [Zyloprim] 100 mg PO DAILY@0800 10/28/19 06/02/20 History Albuterol Sulfate [Albuterol 2 puff PO RT-Q4H PRN 04/30/20 06/02/20 History Sulfate Hfa] Loratadine [Claritin] 10 mg PO Q48H PRN 04/30/20 06/02/20 History Magnesium Hydroxide [Milk of 7,200 mg PO DAILY PRN 04/30/20 06/02/20 History Magnesia Concentrate] Acetaminophen-Codeine 300-30mg 1 tab PO TID PRN #9 tab 05/03/20 06/02/20 Rx [Tylenol w/codeine #3] Caldesene Powder 1 applic TOPICAL BID 06/02/20 06/02/20 History Metoprolol Tartrate [Lopressor] 25 mg PO BID@0800,1700 06/02/20 06/02/20 History Potassium Chloride [Klor-Con 10] 10 meq PO SUTUTHSA@1700 06/02/20 06/02/20 History Torsemide [Demadex] 40 mg PO DAILY@0800 06/02/20 06/02/20 History Allergies Allergy/AdvReac Type Severity Reaction Status Date / Time Iodinated Contrast Media AdvReac SEE COMMENT Verified 06/02/20 13:03 [Iodinated Contrast- Oral and IV Dye] sodium phosphate AdvReac SEE COMMENT Verified 06/02/20 13:03 [From Fleet Enema] NEPHROTOXINS AdvReac SEE COMMENT Uncoded 06/02/20 13:03 Physical Exam Vitals: Vital Signs Temp Pulse Resp BP Pulse Ox 06/02/20 14:48 60 18 117/60 97 06/02/20 14:34 61 06/02/20 14:23 64 06/02/20 12:41 97.4 F L 66 18 113/60 06/02/20 12:34 68 18 119/4 Intake and Output 06/02/20 06/02/20 06/02/20 06:59 14:59 22:59 Other: Weight 202.302 kg Morbidly obesity BMI of 74.2 Head exam was generally normal. There was no scleral icterus or corneal arcus. Mucous membranes were moist. Neck was supple and without jugular venous distension, thyromegaly, or carotid bruits. Carotids were easily palpable bilaterally. There was no adenopathy. The patient is a Mallampati class IV with significant crowding of posterior pharynx Cardiac exam revealed the PMI to be normally situated and sized. The rhythm was regular and no extrasystoles were noted during several minutes of auscultation. The first and second heart sounds were normal and physiologic splitting of the second heart sound was noted. There were no murmurs, rubs, clicks, or gallops. Lungs sounds are diminished bilaterally left more than right Abdominal exam revealed normal bowel sounds. The abdomen was soft, non-tender, and without masses, organomegaly, or appreciable enlargement of the abdominal aorta. Organs aren't not accurately assess as the patient is morbidly obese. Examination of the extremities revealed easily palpable radial, femoral and pedal pulses. There was no cyanosis, clubbing and there is increased edema in the lower extremities bilaterally. Examination of the skin revealed no evidence of significant rashes, suspicious appearing nevi or other concerning lesions. Neurologically, the patient is awake and alert and the patient does not have any focal neurological deficit. Cranial nerves are essentially intact. Results - Laboratory Findings CBC and BMP: 06/02/20 12:47 06/02/20 12:47 PT/INR, D-dimer PT 12.0 sec (9.0-12.0) 06/02/20 12:47 INR 1.2 (<1.2) H 06/02/20 12:47 Abnormal lab findings: Abnormal Labs 06/02/20 06/02/20 06/02/20 12:47 12:47 12:47 RBC 2.85 L Hgb 7.9 L Hct 28.5 L MCV 100.1 H MCHC 27.5 L RDW 19.8 H Neutrophils # 7.8 H Lymphocytes # 0.5 L INR 1.2 H BUN 90 H Creatinine 3.62 H Glucose 117 H Magnesium 2.4 H Alkaline Phosphatase 148 H Albumin 3.3 L - Diagnostic Findings Chest x-ray: image reviewed Assessment and Plan Plan: 1 acute left lung opacification not present on previous chest x-ray. No significant mediastinal shift. Consider a combination of fluid and atelectasis. A noncontrast CAT scan of the chest will be done prior to any intervention 2 shortness of breath secondary to above 3 morbid obesity with a BMI of 74.2 4 chronic hypoxic respiratory failure currently on 2 L of oxygen by nasal cannula 5 Chronic kidney disease stage IV secondary to nephrosclerosis with some worsening 6 Chronic gastritis finding any recent EGD 7 vaginal bleeding.-Intermittent 8 Chronic congestive heart failure from diastolic dysfunction EF 55-60% 9 Morbid obesity BMI 34.2 10 renal bone disease 11 Anemia of chronic kidney disease 12 Persistent atrial fibrillation, rate controlled 13 Nonalcoholic fatty liver disease 14 COPD in an ex-smoker 15 Primary osteoarthritis 16 Obstructive sleep apnea 17 Chronic gout 18 Chronic hypoxic respiratory failure from COPD 19 Chronic medical debility and a baseline patient does use a lift to a wheelchair Plan Noncontrast CAT scan of the chest Possible thoracentesis based on the results of the CAT scan of the chest. May also need a bronchoscopy with a later stage if there is any atelectasis or volume loss or any concern for a distal left nasal obstruction. Put the patient on Lasix 80 mg every 12 hours IV. Follow-up with nephrology. We'll continue to follow.
[2020-06-02] MEDS ORDERED: LORATADINE 10 MG TAB PO PRN (18:22)
[2020-06-02] MEDS ORDERED: MAGNESIUM HYDROXIDE 2,400 MG/10 ML CUP PO PRN (18:22)
[2020-06-02] MEDS ORDERED: ACETAMINOPHEN TAB 325 MG TAB PO PRN (18:22)
[2020-06-02] MEDS ORDERED: bisacodyL 10 MG SUPP RECTAL PRN (18:22)
[2020-06-02] MEDS ORDERED: ALBUTEROL HFA INHALER INHALATION PRN (18:22)
[2020-06-02] MEDS: IPRATROPIUM-ALBUTEROL 3 ML NEB INHALATION SCH (18:59)
[2020-06-02] MEDS ORDERED: ALBUTEROL NEBULIZED 2.5 MG/3 ML INHALATION SCH (19:00)
[2020-06-02] MEDS: FUROSEMIDE 10 MG/ML 10 ML VIAL IV SCH (19:49)
[2020-06-02] MEDS: ATORVASTATIN 40 MG TAB PO SCH (19:49)
[2020-06-02] MEDS: TRIAMCINOLONE 0.1% CREAM 80 GM TUBE TOPICAL SCH (19:50)
[2020-06-02] MEDS ORDERED: NON FORMULARY DRUG (Caldesene Powder 1 APPLIC) TOPICAL SCH (21:00)
[2020-06-02] MEDS ORDERED: FUROSEMIDE 10 MG/ML 4 ML VIAL IV SCH (21:00)
[2020-06-03] MEDS: IPRATROPIUM-ALBUTEROL 3 ML NEB INHALATION SCH ×4 (08:21→20:26)
[2020-06-03] MEDS: ISOSORBIDE MONONITRATE ER 30 MG TAB.ER.24H PO SCH (10:10)
[2020-06-03] MEDS: ASPIRIN 81 MG PO SCH (10:10)
[2020-06-03] MEDS: CALCIUM ACETATE 667 MG TAB PO SCH (10:10)
[2020-06-03] MEDS: FUROSEMIDE 10 MG/ML 10 ML VIAL IV SCH ×2 (10:11→20:33)
[2020-06-03] MEDS: METOPROLOL TARTRATE 25 MG TAB PO SCH ×2 (10:11→15:57)
[2020-06-03] MEDS: FOLIC ACID 1 MG TAB PO SCH (10:11)
[2020-06-03] MEDS: NON FORMULARY DRUG (Linaclotide [Linzess] 145 MCG) PO SCH (10:11)
[2020-06-03] MEDS: FERROUS SULFATE 325 MG TAB PO SCH (10:11)
[2020-06-03] MEDS: allopurinoL 100 MG TAB PO SCH (10:11)
[2020-06-03] MEDS: TRIAMCINOLONE 0.1% CREAM 80 GM TUBE TOPICAL SCH ×2 (10:12→20:34)
[2020-06-03] MEDS: LACTULOSE 20 GM/30 ML CUP PO PRN (10:24)
[2020-06-03] MEDS: SENNOSIDES 8.6 MG TAB PO PRN (10:28)
--- NOTE | 2020-06-03 11:50 | P.PN ---
Subjective Progress Note Date: 06/03/20 Principal diagnosis: Acute left lung opacification. 70-year-old female patient, custodial resident who was referred back to the emergency department because of worsening shortness of breath and hypoxemia. The patient had significant amount of weight gain in the order of 11 pounds over this past week. She also reported worsening lower extremity edema. She was unable to ambulate. She is currently bedbound. She is morbidly obese with a BMI of 34.2. No fever no chills. No aspiration. She has a mild cough. No chest pain. The chest x-rays showing complete opacification of the left lung without any significant shift of the trachea or volume loss. The left mainstem bronchus is currently off. White cell count 9.3 with hemoglobin of 7.9. Coagulation profile is within normal. 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 Serum bicarb is 29 with a sodium of 138. The liver functions is on essentially within normal limits. Albumin is at 3.3 with a total protein of 6.9. ProBNP level was 11,300. Currently, the patient is on 2 L of oxygen by nasal cannula. Pulse ox and order of 97%. Long with stage IV kidney disease secondary to do hypertensive nephrosclerosis. She also has chronic anemia, chronic proximal atrial fibrillation, COPD, osteoarthritis, obstructive sleep apnea, gout and she Zyvox and dependent and she has home O2. She is medically debilitated and she is a left and a walker. She is a resident of a [facility]. During her most recent hospitalization, the anemia was further worked up by EGD EGD showed mild gastritis. There was mild duodenitis. There was a small hiatal hernia. The patient is seen today 06/03/2020 in follow-up on the selective care unit. She is awake and alert in no acute distress. Currently resting flat in bed. Maintaining O2 saturation in the mid 90s on 2 L/m per nasal cannula. She's been afebrile. Was unable to tolerate a computed tomography scan of the chest yesterday. Sodium 138. Potassium 6.0. Creatinine 3.54. She remains on Lasix 80 mg IV every 12 hours. Objective - Vital Signs Vital signs: Vital Signs Temp 98.4 F 06/03/20 04:00 Pulse 53 L 06/03/20 08:37 Resp 18 06/03/20 04:00 BP 106/58 06/03/20 04:00 Pulse Ox 97 06/03/20 04:00 Intake & Output 06/02/20 06/03/20 06/03/20 18:59 06:59 18:59 Intake Total 130 156 0 Output Total 275 500 Balance -145 -344 0 Weight 205 kg 205 kg Intake: IV 10 36 Invasive Line 1 10 36 Oral 120 120 0 Output: Urine 275 500 Other: Voiding Method Indwelling Catheter - Exam Very pleasant 70-year-old female patient, morbidly obesity BMI of 75.2 Head exam was generally normal. There was no scleral icterus or corneal arcus. Mucous membranes were moist. Neck was supple and without jugular venous distension, thyromegaly, or carotid bruits. Carotids were easily palpable bilaterally. There was no adenopathy. The patient is a Mallampati class IV with significant crowding of posterior pharynx Cardiac exam revealed the PMI to be normally situated and sized. The rhythm was regular and no extrasystoles were noted during several minutes of auscultation. The first and second heart sounds were normal and physiologic splitting of the second heart sound was noted. There were no murmurs, rubs, clicks, or gallops. Lungs sounds are diminished bilaterally left more than right Abdominal exam revealed normal bowel sounds. The abdomen was soft, non-tender, and without masses, organomegaly, or appreciable enlargement of the abdominal aorta. Organs aren't not accurately assess as the patient is morbidly obese. Examination of the extremities revealed easily palpable radial, femoral and pedal pulses. There was no cyanosis, clubbing and there is increased edema in the lower extremities bilaterally. Examination of the skin revealed no evidence of significant rashes, suspicious appearing nevi or other concerning lesions. Neurologically, the patient is awake and alert and the patient does not have any focal neurological deficit. Cranial nerves are essentially intact. - Labs CBC & Chem 7: 06/02/20 12:47 06/03/20 10:20 Labs: Abnormal Lab Results - Last 24 Hours (Table) 06/02/20 06/02/20 06/02/20 Range/Units 12:47 12:47 12:47 RBC 2.85 L (3.80-5.40) m/uL Hgb 7.9 L (11.4-16.0) gm/dL Hct 28.5 L (34.0-46.0) % MCV 100.1 H (80.0-100.0) fL MCHC 27.5 L (31.0-37.0) g/dL RDW 19.8 H (11.5-15.5) % Neutrophils # 7.8 H (1.3-7.7) k/uL Lymphocytes # 0.5 L (1.0-4.8) k/uL INR 1.2 H (<1.2) Potassium (3.5-5.1) mmol/L BUN 90 H (7-17) mg/dL Creatinine 3.62 H (0.52-1.04) mg/dL Glucose 117 H (74-99) mg/dL Magnesium 2.4 H (1.6-2.3) mg/dL Alkaline Phosphatase 148 H (38-126) U/L Albumin 3.3 L (3.5-5.0) g/dL 06/03/20 Range/Units 10:20 RBC (3.80-5.40) m/uL Hgb (11.4-16.0) gm/dL Hct (34.0-46.0) % MCV (80.0-100.0) fL MCHC (31.0-37.0) g/dL RDW (11.5-15.5) % Neutrophils # (1.3-7.7) k/uL Lymphocytes # (1.0-4.8) k/uL INR (<1.2) Potassium 6.0 H (3.5-5.1) mmol/L BUN 93 H (7-17) mg/dL Creatinine 3.54 H (0.52-1.04) mg/dL Glucose (74-99) mg/dL Magnesium (1.6-2.3) mg/dL Alkaline Phosphatase (38-126) U/L Albumin (3.5-5.0) g/dL Assessment and Plan Assessment: 1 acute left lung opacification not present on previous chest x-ray. No significant mediastinal shift. Consider a combination of fluid and atelectasis. A noncontrast CAT scan of the chest was ordered to be done prior to any intervention however she could not tolerate a computed tomography scan. We'll request interventional radiology to perform a left-sided thoracentesis, ultrasound-guided 2 shortness of breath secondary to above 3 morbid obesity with a BMI of 74.2 4 chronic hypoxic respiratory failure currently on 2 L of oxygen by nasal can nula 5 Chronic kidney disease stage IV secondary to nephrosclerosis with some worsening 6 Chronic gastritis finding any recent EGD 7 vaginal bleeding.-Intermittent 8 Chronic congestive heart failure from diastolic dysfunction EF 55-60% 9 Morbid obesity BMI 34.2 10 renal bone disease 11 Anemia of chronic kidney disease 12 Persistent atrial fibrillation, rate controlled 13 Nonalcoholic fatty liver disease 14 COPD in an ex-smoker 15 Primary osteoarthritis 16 Obstructive sleep apnea 17 Chronic gout 18 Chronic hypoxic respiratory failure from COPD 19 Chronic medical debility and a baseline patient does use a lift to a wheelchair Plan The patient was seen and evaluated by Dr. James Unable to obtain computed tomography scan of the chest We've requested interventional radiology to perform a left sided ultrasound guided thoracentesis We'll continue the current treatment plan for now We'll continue to follow I, the cosigning physician, performed a history & physical examination of the patient. Lungs sounds diminished in the left lung crews. Maintaining good O2 saturations in the 90s on 2 L/m per nasal cannula. I discussed the assessment and plan of care with my nurse practitioner, Ama Streeter. I attest to the above note as dictated by her.
[2020-06-03] MEDS ORDERED: INSULIN REGULAR 100 UNIT/ML VIAL IV ONE (13:11)
--- NOTE | 2020-06-03 13:11 | CONS ---
CONSULTATION REASON FOR CONSULT: Renal failure. HISTORY OF PRESENT ILLNESS: Patient is a 70-year-old female with history of chronic kidney disease, NKF stage IV with previous history of dialysis dependent acute renal failure. She also has history of CHF with mostly diastolic dysfunction with previous echocardiogram in 2019 showing ejection fraction 50%-55%. Patient was admitted to the hospital with complaints of increasing shortness of breath and increased lower extremity edema. Her baseline creatinine has been around 2.7-3 mg/dL. This admission her creatinine was 3.5 and 3.6 mg/dL. Patient currently has an indwelling Arteaga catheter, 24 hour urine output charted at 775 mL. Patient is maintained on Lasix 80 mg q.12 hours. She states overall she is feeling better. Patient denied any fever, chills, nausea, vomiting. No abdominal pain or diarrhea. Blood pressures have been on the lower side with systolic around 93 mmHg yesterday. MEDICATION REVIEW: Does not show any nonsteroidal anti-inflammatory agents or JUDIE inhibitors prior to admission. Patient is maintained on Demadex. PAST MEDICAL HISTORY: CKD stage 4, atrial fibrillation, asthma, CHF, mostly diastolic dysfunction, obstructive sleep apnea, history of pneumonia, history of UTIs, anemia of chronic disease. PAST SURGICAL HISTORY: , ear surgery, PermCath placement removal, debridement, bilateral foot ulcers, EGD, colonoscopy, left ear benign tumor removal, x2. SOCIAL HISTORY: Patient is a former smoker. No history of drug abuse or alcohol abuse. She currently resides at [facility]. REVIEW OF SYSTEMS: As per HPI. MEDICATIONS: At home prior to admission included folic acid, vitamin D, Dulcolax, Lipitor, PhosLo, Procrit, Calcitriol, Tylenol, aspirin, Co Q10, Imdur, Zyloprim, Claritin, albuterol, milk of magnesia, Lopressor, potassium, Demadex. ALLERGIES: Include IV contrast, Fleet enema. PHYSICAL EXAMINATION: Patient is comfortable, awake, alert, oriented x3, not in any acute distress. Blood pressure is 106/58, heart rate 58 per minute, she is afebrile. Examination of the heart S1, S2. Examination of the lungs, decreased breath sounds at bases. Abdomen is soft, obese, nontender. Examination of the lower extremities shows edema 1+ bilaterally. Chronic skin changes. Patient does not move her lower extremities much. 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 Her movements in the upper extremities is fairly normal. LABS: Show sodium 138, potassium 6.0, chloride 104, BUN 93, creatinine 3.54, hemoglobin 7.9 g/dL. Blood sugar was 85. ASSESSMENT: 1. Acute kidney injury, mostly cardiorenal and associated with hypotension, hypoperfusion. Continue with the current dose of IV Lasix. Repeat labs in a.m. Patient has an indwelling Arteaga catheter. 2. Hyperkalemia associated with acute kidney injury. Will treat with IV medications, avoid use of Kayexalate. 3. CHF, acute on top of chronic, mostly diastolic. Chest x-ray does not appear to be significant and does not appear to so show significant volume overload. There is opacification of the left lung, but the right lung is clear. 4. Chronic kidney disease stage 4, previous creatinine about 2.7 mg/dL. Etiology is nephrosclerosis. UA shows no evidence of protein. PLAN: Continue with the Lasix. Decrease dose later on today. Repeat chest x-ray. Follow up with Pulmonology. May need bronchoscopy and void nephrotoxic agents. Avoid hypotension. Continue with the Rocaltrol and PhosLo. Discontinue the potassium supplementation. Thank you for this consultation. Will continue to follow the patient with you during her hospitalization. MMODL / IJN: [id number] /
[2020-06-03] MEDS ORDERED: DEXTROSE 50% SYRINGE 50 ML IVP STA (13:12)
[2020-06-03] MEDS: CHOLECALCIFEROL 1,000 UNIT TAB PO SCH (15:57)
[2020-06-03] MEDS: DARBEPOETIN ALFA 60 MCG/0.3 ML SYRINGE SQ SCH (15:58)
[2020-06-03] MEDS ORDERED: POTASSIUM CHLORIDE ER 10 MEQ TAB.ER.PRT PO SCH (17:00)
[2020-06-03] MEDS ORDERED: CO Q10 PO SCH (17:00)
--- NOTE | 2020-06-03 18:58 | P.HPIM ---
History of Present Illness H&P Date: 06/03/20 Chief Complaint: Fluid overload History of presenting complaint: This is a pleasant 70-year-old patient was chronic stable medical conditions include CHF EF 55 and 55%, morbid obesity, chronic kidney disease stage IV secondary to nephrosclerosis, renal bone disease, anemia of chronic kidney disease, persistent atrial fibrillation, fatty liver, COPD, primary osteoarthritis, obstructive sleep apnea, chronic gout, on home oxygen, chronic medical debility at her baseline uses a lift a wheelchair. Patient is a resident at [facility]. Patient presents with increasing swelling about a week. Increase in shortness of breath. Appetite is okay. Bowel movements are okay. No fever no chills. Started on IV Lasix. Review of systems: GEN.: Tired EYES: None HEENT: None NECK: None RESPIRATORY: As above CARDIOVASCULAR: Edema present GASTROINTESTINAL: None GENITOURINARY: None MUSCULOSKELETAL: [Joint pains LYMPHATICS: None HEMATOLOGICAL: None PSYCHIATRY: None NEUROLOGICAL: None Past medical history to include: CHF EF 55 and 55%, morbid obesity, chronic kidney disease stage IV secondary to nephrosclerosis, renal bone disease, anemia of chronic kidney disease, persistent atrial fibrillation, fatty liver, COPD, primary osteoarthritis, obstructive sleep apnea, chronic gout, on home oxygen, chronic medical debility at her baseline uses a lift to a wheelchair Social history: Lives at the [facility]. Patient smoked from age of 21 for about 35 years. Typically a pack would last about for a week. Alcohol rarely. Physical examination: VITAL SIGNS: 97.4, 66, 18, 130s over 60, 88% on 2 L GENERAL: BMI 35.2 laying in bed, awake. EYES: Pupils equal. Conjunctiva normal. HEENT: External appearance of nose and ears normal, oral cavity grossly normal. NECK: JVD unable to assess masses not palpable. HEART: First and second heart sounds are normal; no edema. LUNGS: Respiratory rate increased, distant breath sounds. ABDOMEN: Soft, nontender, liver spleen not palpable, no masses palpable. PSYCH: Alert and oriented x3; mood and affect normal. NEUROLOGICAL: Cranial nerves grossly intact; no facial asymmetry, power and sensation grossly intact. LYMPHATICS: No lymph nodes palpable in the axilla and neck -MUSCULAR skeletal: [place] INVESTIGATIONS, reviewed in the clinical context: White count 9.3 hemoglobin 7.9 potassium 4.9 bun 90 creatinine 2.6 to. Repeat p otassium this morning was 6 EKG tracing personally reviewed by me shows atrial fibrillation rate of 60s Chest x-ray film personally reviewed by me-near whiteout on the left side Assessment: -Acute on Chronic congestive heart failure from diastolic dysfunction EF 55-60% -Chronic kidney disease stage IV secondary to nephrosclerosis with some worsening -Morbid obesity BMI 75.2 -Chronic kidney disease renal bone disease -Anemia of chronic kidney disease -Persistent atrial fibrillation, rate controlled Nonalcoholic fatty liver disease -COPD in an ex-smoker -Primary osteoarthritis -Obstructive sleep apnea -Chronic gout -Chronic hypoxic respiratory failure from COPD -Chronic medical debility and a baseline patient does use a lift to a wheelchair Plan: Patient put on IV Lasix. Home medications resumed. Follow electrolytes. Care was discussed with the patient. Questions answered.. Consultation to pulmonary, nephrology. Past Medical History Past Medical History: Atrial Fibrillation, Asthma, Heart Failure, Hyperlipidemia, Hypertension, Liver Disease, Osteoarthritis (OA), Pneumonia, Renal Disease, Sleep Apnea/CPAP/BIPAP Additional Past Medical History / Comment(s): BRUNILDA with CPAP, O2 at 2L/NC during day, morbid obesity, intermittent vaginal bleed, fatty liver, CKD stage IV/mineral bone disease, UTIs, murmur, gout bilateral legs/feet, arthritis multiple joints, sinus problems, past left lower leg cellulitis and wound, gastritis,"in my 20's i had ulcers", anemia "has had blood transfusion, and iron infusions", hiatal hernia, current excoriation R side abdominal fold and [facility] placing cream to buttock which pt states is red. History of Any Multi-Drug Resistant Organisms: Other MDRO Past Surgical History: Section, Ear Surgery Additional Past Surgical History / Comment(s): Debridement bilateral feet toenails, 04/2020 EGDcolonoscopy-normal, L ear benign tumor removed, x 2. Past Anesthesia/Blood Transfusion Reactions: No Reported Reaction Additional Past Anesthesia/Blood Transfusion Reaction / Comment(s): blood transfusions- no reaction Past Psychological History: No Psychological Hx Reported Additional Psychological History / Comment(s): Pt currently at [facility]. Pt is not ambulatory-they use lift to w/c Smoking Status: Former smoker Past Alcohol Use History: Rare Additional Past Alcohol Use History / Comment(s): started smoking at age 21 and quit 2006 a pack would last a week. Past Drug Use History: None Reported - Past Family History Mother Family Medical History: Cancer Additional Family Medical History / Comment(s): Mother of colon cancer at the age of 54 yrs. Father Family Medical History: Myocardial Infarction (NH) Additional Family Medical History / Comment(s): Father of a massive NH at the age of 60 yrs. Medications and Allergies Home Medications Medication Instructions Recorded Confirmed Type Folic Acid 1 mg PO DAILY@1200 12/19/16 06/02/20 History Cholecalciferol [Vitamin D3 (25 2,000 unit PO DAILY@1700 12/30/16 06/02/20 History Mcg = 1000 Iu)] Ferrous Sulfate [Iron (65 MG 325 mg PO DAILY@1200 02/23/17 06/02/20 History Elemental)] bisacodyL [Dulcolax] 10 mg RECTAL DAILY PRN 02/23/17 06/02/20 History Atorvastatin [Lipitor] 40 mg PO HS@2100 06/25/17 06/02/20 History Calcium Acetate [PhosLo] 667 mg PO DAILY@0800 08/23/17 06/02/20 History Epoetin Juan Jose [Procrit] 20,000 unit SQ TH 08/23/17 06/02/20 History Linaclotide [Linzess] 145 mcg PO DAILY@0800 08/23/17 06/02/20 History Lactulose 10 gm PO BID PRN 11/20/18 06/02/20 History Sennosides [Senna] 8.6 - 17.2 mg PO HS PRN 11/20/18 06/02/20 History calcitrioL [Calcitriol] 0.25 mcg PO DAILY@1700 11/20/18 06/02/20 History Acetaminophen Tab [Tylenol] 650 mg PO Q4H PRN 05/23/19 06/02/20 History Aspirin 81 mg PO DAILY@1200 05/23/19 06/02/20 History Co Q-10 60mg 60 mg PO DAILY@169905/23/19 06/02/20 History Ipratropium-Albuterol Nebulize 3 ml INHALATION RT-QID 05/23/19 06/02/20 History [Duoneb 0.5 mg-3 mg/3 ml Soln] Isosorbide Mononitrate ER [Imdur] 30 mg PO DAILY@0800 05/23/19 06/02/20 History Hydrocortisone Cream 1 applic TOPICAL BID 10/28/19 06/02/20 History [Hydrocortisone 2.5% Cream] allopurinoL [Zyloprim] 100 mg PO DAILY@0800 10/28/19 06/02/20 History Albuterol Sulfate [Albuterol 2 puff PO RT-Q4H PRN 04/30/20 06/02/20 History Sulfate Hfa] Loratadine [Claritin] 10 mg PO Q48H PRN 04/30/20 06/02/20 History Magnesium Hydroxide [Milk of 7,200 mg PO DAILY PRN 04/30/20 06/02/20 History Magnesia Concentrate] Acetaminophen-Codeine 300-30mg 1 tab PO TID PRN #9 tab 05/03/20 06/02/20 Rx [Tylenol w/codeine #3] Caldesene Powder 1 applic TOPICAL BID 06/02/20 06/02/20 History Metoprolol Tartrate [Lopressor] 25 mg PO BID@0800,1700 06/02/20 06/02/20 History Potassium Chloride [Klor-Con 10] 10 meq PO SUTUTHSA@1700 06/02/20 06/02/20 History Torsemide [Demadex] 40 mg PO DAILY@0800 06/02/20 06/02/20 History Allergies Allergy/AdvReac Type Severity Reaction Status Date / Time Iodinated Contrast Media AdvReac SEE COMMENT Verified 06/02/20 13:03 [Iodinated Contrast- Oral and IV Dye] sodium phosphate AdvReac SEE COMMENT Verified 06/02/20 13:03 [From Fleet Enema] NEPHROTOXINS AdvReac SEE COMMENT Uncoded 06/02/20 13:03 Physical Exam Vitals: Vital Signs Temp Pulse Pulse Resp BP BP Pulse Ox 06/03/20 08:37 53 L 06/03/20 08:21 52 L 06/03/20 04:00 98.4 F 58 L 18 106/58 97 06/03/20 00:00 52 L 18 114/76 98 06/02/20 20:00 98.2 F 56 L 20 110/68 99 06/02/20 19:12 56 L 06/02/20 19:00 55 L 08/05/20 16:00 62 16 06/02/20 15:45 97.5 F L 62 16 93/53 97 06/02/20 14:48 60 18 117/60 97 06/02/20 14:34 61 06/02/20 14:30 64 18 107/60 97 06/02/20 14:23 64 06/02/20 14:00 64 15 110/29 100 06/02/20 13:30 65 16 105/48 99 06/02/20 13:00 64 16 113/60 98 06/02/20 12:41 97.4 F L 66 18 113/60 06/02/20 12:34 68 18 119/4 Intake and Output 06/02/20 06/03/20 06/03/20 22:59 06:59 14:59 Intake Total 148 138 0 Output Total 275 500 Balance -127 -362 0 Intake: IV 28 18 Invasive Line 1 28 18 Oral 120 120 0 Output: Urine 275 500 Other: Voiding Method Indwelling Catheter Weight 205 kg Results CBC & Chem 7: 06/02/20 12:47 06/03/20 12:50 Labs: Abnormal Lab Results - Last 24 Hours (Table) 06/02/20 06/02/20 06/02/20 Range/Units 12:47 12:47 12:47 RBC 2.85 L (3.80-5.40) m/uL Hgb 7.9 L (11.4-16.0) gm/dL Hct 28.5 L (34.0-46.0) % MCV 100.1 H (80.0-100.0) fL MCHC 27.5 L (31.0-37.0) g/dL RDW 19.8 H (11.5-15.5) % Neutrophils # 7.8 H (1.3-7.7) k/uL Lymphocytes # 0.5 L (1.0-4.8) k/uL INR 1.2 H (<1.2) BUN 90 H (7-17) mg/dL Creatinine 3.62 H (0.52-1.04) mg/dL Glucose 117 H (74-99) mg/dL Magnesium 2.4 H (1.6-2.3) mg/dL Alkaline Phosphatase 148 H (38-126) U/L Albumin 3.3 L (3.5-5.0) g/dL Thrombosis Risk Factor Assmnt - Choose All That Apply Any of the Below Risk Factors Present?: Yes Each Factor Represents 1 point: Heart failure (<1month), Obesity (BMI >25), Serious lung disease incl. pneumonia (< 1month) Other Risk Factors: Yes Each Risk Factor Represents 2 Points: Age 61-74 years Other congenital or acquired thrombophilia - If yes, enter type in comment: No Thrombosis Risk Factor Assessment Total Risk Factor Score: 5 Thrombosis Risk Factor Assessment Level: High Risk
[2020-06-03] MEDS: ATORVASTATIN 40 MG TAB PO SCH (20:33)
[2020-06-04] MEDS: Acetaminophen-Codeine 300-30mg TAB PO PRN (01:23)
[2020-06-04] MEDS: ONDANSETRON 4 MG/2 ML VIAL IVP PRN (05:36)
[2020-06-04 09:30] LABS: Calcium 9.1 mg/dL (8.4-10.2); Potassium 4.9 mmol/L (3.5-5.1)
[2020-06-04] MEDS: IPRATROPIUM-ALBUTEROL 3 ML NEB INHALATION SCH ×4 (09:30→19:59)
[2020-06-04] MEDS: NON FORMULARY DRUG (Linaclotide [Linzess] 145 MCG) PO SCH (09:51)
[2020-06-04] MEDS: TRIAMCINOLONE 0.1% CREAM 80 GM TUBE TOPICAL SCH ×2 (09:52→22:01)
--- NOTE | 2020-06-04 09:52 | XR ---
EXAMINATION TYPE: XR chest 1V DATE OF EXAM: 06/04/2020 CLINICAL HISTORY: Abnormal x-ray progress study. TECHNIQUE: Single AP portable semiupright view of the chest is obtained. COMPARISON: Chest x-ray from 2 days earlier and older studies. FINDINGS: Persistent completely opacified left hemithorax silhouetting left heart border and hemidia phragm. Right lung remains clear. Persistent atherosclerotic change in aortic knob. No New mediastinal shift. Multilevel spurring in the spine. IMPRESSION: Overall stable findings, completely opacified left hemithorax without mediastinal shift . Consider bronchoscopy evaluation to assess for obstructing bronchial mass or mucous plug.
[2020-06-04] MEDS: FUROSEMIDE 10 MG/ML 10 ML VIAL IV SCH (09:54)
--- NOTE | 2020-06-04 12:02 | PN ---
PROGRESS NOTE Patient is seen for follow up for acute kidney injury on top of chronic kidney disease. Patient was admitted with fluid overload. She has been diuresed. Lasix is currently at 60 IV q.12 hours. The chest x-ray; however, shows right lung to be clear and left lung complete opacification was noted. The patient is being followed by Pulmonology. I had decreased her Lasix yesterday. She has an indwelling Arteaga catheter and urine output is documented at about 880 mL for 24 hours. PHYSICAL EXAMINATION: On examination today, blood pressure was 109/56, heart rate 64 per minute, she is afebrile. Examination of the heart S1, S2. Examination of the lungs, bilateral breath sounds are heard. Abdomen is soft. Morbidly obese. Examination of the lower extremities shows edema 1+ bilaterally with chronic skin changes noted. CHECK TOTALER exam grossly intact. Patient does not move her lower extremities much. LABS: Show sodium 140, potassium 4.9, chloride 103, BUN 96, serum creatinine 3.74, hemoglobin was 7.9 on 06/02. ASSESSMENT: 1. Acute kidney injury on top of chronic kidney disease, mostly associated with hypotension hypoperfusion. a component of cardiorenal syndrome as well. I will decrease the Lasix further as she is not significantly volume overloaded. 2. Hyperkalemia associated with acute kidney injury, currently improved. 3. CHF acute on top of chronic, mostly diastolic, currently improved. 4. Mediastinal shift and opacification of the left lung with clear right lung. 5. Chronic kidney disease stage IV. Previous creatinine 2.7 secondary to nephrosclerosis. No evidence of proteinuria. PLAN: Decrease Lasix further. Continue indwelling Arteaga catheter. Add midodrine for hypotension and repeat labs in a.m. MMODL / IJN: [id number] /
--- NOTE | 2020-06-04 12:59 | P.PN ---
Subjective Progress Note Date: 06/04/20 Principal diagnosis: Acute left lung opacification 70-year-old female patient, retirement resident who was referred back to the emergency department because of worsening shortness of breath and hypoxemia. The patient had significant amount of weight gain in the order of 11 pounds over this past week. She also reported worsening lower extremity edema. She was unable to ambulate. She is currently bedbound. She is morbidly obese with a BMI of 34.2. No fever no chills. No aspiration. She has a mild cough. No chest pain. The chest x-rays showing complete opacification of the left lung without any significant shift of the trachea or volume loss. The left mainstem bronchus is currently off. White cell count 9.3 with hemoglobin of 7.9. Coagulation profile is within normal. 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 Serum bicarb is 29 with a sodium of 138. The liver functions is on essentially within normal limits. Albumin is at 3.3 with a total protein of 6.9. ProBNP level was 11,300. Currently, the patient is on 2 L of oxygen by nasal cannula. Pulse ox and order of 97%. Long with stage IV kidney disease secondary to do hypertensive nephrosclerosis. She also has chronic anemia, chronic proximal atrial fibrillation, COPD, osteoarthritis, obstructive sleep apnea, gout and she Zyvox and dependent and she has home O2. She is medically debilitated and she is a left and a walker. She is a resident of a [facility]. During her most recent hospitalization, the anemia was further worked up by EGD EGD showed mild gastritis. There was mild duodenitis. There was a small hiatal hernia. The patient is seen today 06/03/2020 in follow-up on the selective care unit. She is awake and alert in no acute distress. Currently resting flat in bed. Maintaining O2 saturation in the mid 90s on 2 L/m per nasal cannula. She's been afebrile. Was unable to tolerate a computed tomography scan of the chest yesterday. Sodium 138. Potassium 6.0. Creatinine 3.54. She remains on Lasix 80 mg IV every 12 hours. On 06/04/2020 patient seen in follow-up on selective care unit. She is resting comfortably in bed. She appears to be in no acute distress, she is on 2 L of oxygen her pulse ox is 92-100%, hemodynamically she stable, no couplets or chest pain, she's been afebrile, yesterday she had unsuccessful attempt at ultrasound- guided left thoracentesis, and patient was experiencing a lot of discomfort when the staff was trying to position her for the thoracentesis, and the procedure was aborted. Electrolytes are within normal limits, BUN was 96, creatinine was 3.74. She remains on diuretics 40 mg every 12 hours, her lower extremity edema slightly improved. Lung sounds reveal absent breath sounds on the left, and clear diminished breath sounds on the right, no cough or congestion. No altered mentation. Follow-up chest x-ray today shows stable findings complete opacified left hemithorax without mediastinal shift. Objective - Vital Signs Vital signs: Vital Signs Temp 97.8 F 06/04/20 03:58 Pulse 67 06/04/20 11:58 Resp 18 06/04/20 08:00 BP 109/56 06/04/20 08:00 Pulse Ox 100 06/04/20 08:00 Intake & Output 06/03/20 06/04/20 06/04/20 18:59 06:59 18:59 Intake Total 940 Output Total 500 380 Balance 440 -380 Weight 205 kg 204.1 kg Intake: IV 40 Invasive Line 1 40 Oral 900 Output: Urine 500 380 Uretheral (Arteaga) 500 Other: Voiding Method Indwelling Catheter Indwelling Catheter Indwelling Catheter - Exam GENERAL EXAM: Alert, very pleasant, supra morbidly obese 70-year-old - [place] female on 2 L of oxygen and the pulse ox of 9200% comfortable in no apparent distress. HEAD: Normocephalic/atraumatic. EYES: Normal reaction of pupils, equal size. Conjunctiva pink, sclera white. NOSE: Clear with pink turbinates. THROAT: No erythema or exudates. NECK: No masses, no JVD, no thyroid enlargement, no adenopathy. CHEST: No chest wall deformity. Symmetrical expansion. LUNGS: Equal air entry with no crackles, wheeze, rhonchi or dullness. CVS: Regular rate and rhythm, normal S1 and S2, no gallops, no murmurs, no rubs ABDOMEN: Soft, nontender. No hepatosplenomegaly, normal bowel sounds, no guarding or rigidity. EXTREMITIES: No clubbing, 1+ edema, no cyanosis, 2+ pulses and upper and lower extremities. MUSCULOSKELETAL: Muscle strength and tone normal. SPINE: No scoliosis or deformity SKIN: No rashes CENTRAL NERVOUS SYSTEM: Alert and oriented -3. No focal deficits, tone is normal in all 4 extremities. PSYCHIATRIC: Alert and oriented -3. Appropriate affect. Intact judgment and insight. - Labs CBC & Chem 7: 06/02/20 12:47 06/04/20 08:59 Labs: Abnormal Lab Results - Last 24 Hours (Table) 06/04/20 Range/Units 08:59 BUN 96 H (7-17) mg/dL Creatinine 3.74 H (0.52-1.04) mg/dL Microbiology - Last 24 Hours (Table) 06/02/20 14:23 Blood Culture - Preliminary Blood No Growth after 24 hours Assessment and Plan Plan: Assessment: 1 acute left lung opacification not present on previous chest x-ray. No significant mediastinal shift. Consider a combination of fluid and atelectasis. A noncontrast CAT scan of the chest was ordered to be done prior to any intervention however she could not tolerate a computed tomography scan. We'll request interventional radiology to perform a left-sided thoracentesis, ultrasound-guided 2 shortness of breath secondary to above 3 morbid obesity with a BMI of 74.2 4 chronic hypoxic respiratory failure currently on 2 L of oxygen by nasal cannu la 5 Chronic kidney disease stage IV secondary to nephrosclerosis with some worsening 6 Chronic gastritis finding any recent EGD 7 vaginal bleeding.-Intermittent 8 Chronic congestive heart failure from diastolic dysfunction EF 55-60% 9 Morbid obesity BMI 34.2 10 renal bone disease 11 Anemia of chronic kidney disease 12 Persistent atrial fibrillation, rate controlled 13 Nonalcoholic fatty liver disease 14 COPD in an ex-smoker 15 Primary osteoarthritis 16 Obstructive sleep apnea 17 Chronic gout 18 Chronic hypoxic respiratory failure from COPD 19 Chronic medical debility and a baseline patient does use a lift to a wheelchair Plan: Continue IV Lasix, patient denies any acute respiratory distress, today's chest x-ray still shows stable findings of left hemithorax. Yesterday patient had a failed attempt at ultrasound-guided left thoracentesis by interventional radiology, today we spoke to interventional radiology and they will be attempted again, perhaps with the use of a mechanical lift. In the meantime continue nebulized bronchodilators, Lasix. Continue following electrolytes and renal profile. I performed a history & physical examination of the patient and discussed their management with my nurse practitioner, Perri Forrest. I reviewed the nurse practitioner's note and agree with the documented findings and plan of care. Lung sounds are positive for absent breath sounds on the left. The findings and the impression was discussed with the patient. I attest to the documentation by the nurse practitioner. Time with Patient: Less than 30
[2020-06-04] MEDS: allopurinoL 100 MG TAB PO SCH (14:42)
[2020-06-04] MEDS: CALCIUM ACETATE 667 MG TAB PO SCH (14:44)
[2020-06-04] MEDS: METOPROLOL TARTRATE 25 MG TAB PO SCH ×2 (14:45→19:03)
[2020-06-04] MEDS: ISOSORBIDE MONONITRATE ER 30 MG TAB.ER.24H PO SCH (14:45)
[2020-06-04] MEDS: FOLIC ACID 1 MG TAB PO SCH (14:45)
[2020-06-04] MEDS: MIDODRINE 5 MG TAB PO SCH ×2 (14:45→19:03)
[2020-06-04] MEDS: ASPIRIN 81 MG PO SCH (14:45)
[2020-06-04] MEDS: FERROUS SULFATE 325 MG TAB PO SCH (14:46)
[2020-06-04] MEDS ORDERED: EPINEPHrine 10 ML SYRINGE (0.1 MG/ML) ONE (16:22)
[2020-06-04] MEDS ORDERED: propofoL 100 ML IV ONE (16:43)
[2020-06-04 16:58] LABS: Glucose,Whole Blood 129 mg/dL (75-99)
[2020-06-04] MEDS ORDERED: LIDOCAINE 1% INJ 10MG/ML (20 ML MDV) ONE (17:05)
--- NOTE | 2020-06-04 17:11 | XR ---
EXAMINATION TYPE: XR chest 1V portable DATE OF EXAM: 06/04/2020 CLINICAL HISTORY: Post left thoracentesis and endotracheal tube placement TECHNIQUE: Portable spine view of the chest obtained COMPARISON: 06/08/2020 chest radiograph at 9:33 AM FINDINGS: Endotracheal tube distal tip 3.8 cm from the michell. There is leftward mediastinal shift. There is aeration over the left upper lung which was not seen on 9:33 AM same day comparison chest ra diograph, likely pneumothorax given supine technique. No evidence of tension pneumothorax. Large left pleural effusion. IMPRESSION: 1. Appropriate radiographic position of endotracheal tube. 2. Moderate to large left pneumothorax. 3. Large left pleural effusion. Dr. Dasha Medeiros spoke with Dr. Rhonda James via the phone at 5:00 PM on 06/04/2020 and results were acknowledged.
[2020-06-04 17:14] LABS: ABG Base Excess -1.9 mmol/L; ABG HCO3 28 mmol/L (21-25); ABG PO2 >400 mmHg (83-108); ABG TCO2 30 mmol/L (19-24); Allen Test Performed? Yes
[2020-06-04] MEDS ORDERED: CISATRACURIUM 2 MG/ML 5 ML VIAL IV ONE ×2 (17:16→17:47)
[2020-06-04 17:21] LABS: ABG PH 7.12 (7.35-7.45)
--- NOTE | 2020-06-04 17:21 | US ---
EXAMINATION TYPE: US left thoracentesis DATE OF EXAM: 06/04/2020 COMPARISON: Chest x-ray 06/04/2020 HISTORY: Pleural effusion. P[employer]ING [employer]SE LABORER: Dr. Dasha Medeiros PROCEDURE: The procedure was discussed with the patient. The risks, complications, benefits, and alternatives we re discussed and any questions were answered. Informed consent was obtained. Preprocedure preliminary imaging demonstrated large volume left pleural effusion. The patient was positioned right lateral decubitus. Maximal barrier technique was utilized. The skin overlying a suitable pocket of fluid of the left chest was localized and the overlying skin prepped a nd draped. Lidocaine was used for local anesthesia. Ultrasound was used with sterile technique. Using continuous ultrasound guidance, a 5FR 10 cm one-step centesis catheter was advanced to the level of the pleural border, with aspiration. Dark red bloody return was seen at the level of the pleural bord er, and needle hub was at the level of the patient's skin and not long enough to advance into the ple ural cavity. Centesis catheter was removed. The patient demonstrated coughing and was rolled supine with elevated head of bed. The patient began to experience oxygen desaturation, and became unresponsive. CODE BLUE was called. IMPRESSION: 1. Status post attempted left-sided thoracentesis, with centesis catheter not long enough to advanced past the level of the pleural border. 2. Patient became unstable after procedure. Please see additional notes in patient's chart for furthe r details.
[2020-06-04 17:22] LABS: ABG PCO2 85 mmHg (35-45)
[2020-06-04] MEDS: NOREPINEPHRINE 32 MG in SODIUM CHLORIDE 0.9% 218 ML IV SCH (17:39)
--- NOTE | 2020-06-04 18:09 | XR ---
EXAMINATION TYPE: XR chest 1V portable DATE OF EXAM: 06/04/2020 COMPARISON: Today HISTORY: Check tube placement TECHNIQUE: FINDINGS: There is endotracheal tube 4.5 cm from the michell. There is nasogastric tube in the stomach . There is left jugular catheter with tip in the superior vena cava. There is left side pleural effus ion. There is mild pulmonary congestion. I see no pneumothorax. IMPRESSION: Pulmonary vascularity increased slightly compared to exam one hour ago. Tubing in good po sition. Left pleural effusion unchanged.
--- NOTE | 2020-06-04 18:16 | P.PN ---
Progress Note - Text Progress Note Date: 06/04/20 CODE BLUE note CODE MINI was called. Patient was undergoing thoracentesis when she was noted to have hemoptysis and agonal breathing. Patient was found to be in PEA. High- quality chest compressions were started. She was given 1 mg of epinephrine. She was intubated. ROSC was achieved. Please refer to CODE BLUE sheet for full details. Stat chest x-ray was ordered which showed left-sided pneumothorax. Patient was moved to the ICU. Primary care was notified by nursing. Dr. James was notified. This series of events took approximately 35 minutes.
--- NOTE | 2020-06-04 18:44 | P.PCN ---
Date of Procedure: 06/04/20 Preoperative Diagnosis: Complete white out of left lung, effusion, atelectasis, possible pneumothorax Postoperative Diagnosis: Same Procedure(s) Performed: Central line insertion , arterial line insertion, Bronchoscopy with airway inspection, Thoravent insertion Anesthesia: DULCEA, local Surgeon: Nikky James Estimated Blood Loss (ml): 0 Pathology: other Condition: critical Disposition: ICU Indications for Procedure: This patient had a complete left lung white out. The patient's had an ultrasound-guided thoracentesis by interventional radiology. During the process, some technical difficulties was encountered by the interventional radiologist due to her morbid obesity. After using a long thoracentesis catheter, only 10 mL of pleural fluid was aspirated that was blood-tinged. During the same time, the patient became progressively more hypoxic and hypotensive and she had a brief cardiac pulmonary arrest. During that, a CODE BLUE was called and the patient was resuscitated according to the ACLS protocol. The patient received CPR. She was intubated and she was given epinephrine and the downtime was exactly around 8 minutes. Pulse was recovered after the preceding one epinephrine. The patient was kept intubated the patient was transferred to the intensive care unit. I saw the patient immediately after she arrived to the ICU. She was sedated. She was hypotensive and she was started on pressors. Immediately the following procedures were done to optimize her overall hemodynamic status and respiratory status. Condition is critical. Family was informed of the above-mentioned clinical changes. Operative Findings: Indication: Hemodynamic monitoring/Intravenous access. A time-out was completed verifying correct patient, procedure, site, positioning, and implant(s) or special equipment if applicable. The patient was placed in a dependent position appropriate for central line placement based on the vein to be cannulated. The patient's left neck was prepped and draped in sterile fashion. 1% Lidocaine was used to anesthetize the surrounding skin area. A triple lumen 9F Cordis catheter was introduced into the internal jugular or common femoral] vein using Seldinger technique. The catheter was threaded smoothly over the guide wire and appropriate blood return was obtained. Each lumen of the catheter was evacuated of air and flushed with sterile saline. The catheter was then sutured in place to the skin and a sterile dressing applied. Perfusion to the extremity distal to the point of catheter insertion was checked and found to be adequate. The patient tolerated the procedure well and there were no complications. Indication: Hemodynamic monitoring. A time-out was completed verifying correct patient, procedure, site, positioning, and implant(s) or special equipment if applicable. Allens test was performed to ensure adequate perfusion. The patients left wrist was prepped and draped in sterile fashion. 1% Lidocaine was used to anesthetize the area. An 18G Arrow arterial line was introduced into the radial artery. The catheter was threaded over the guide wire and the needle was removed with appropriate pulsatile blood return. Blood loss was minimal. The catheter was then sutured in place to the skin and a sterile dressing applied. Perfusion to the extremity distal to the point of catheter insertion was checked and found to be adequate. The patient tolerated the procedure well and there were no complications. Flexible bronchoscopy This patient was already intubated on a mechanical ventilator. The patient was already sedated with propofol. The patient was given 20 mg of Nimbex for paralysis. While the patient being adequately ventilated and oxygenated, and adapter was attached to the orotracheal tube and following that the bronchoscope was used for airway inspection. The flexible bronchoscope was easily inserted through the orotracheal tube and was advanced to the lower trachea. The father ET tube was seen about 2 cm above the michell. Examination of the right side including the right mainstem bronchus, right upper lobe bronchus, right middle lobe and right lower lobe bronchus along with its various segments and subsegments. All of these airways were patent within normal limits. Some loose bloody respiratory secretions were seen in the left mainstem bronchus. Therapeutic it was suctioning was done. After achieving adequate airway patency, the left upper lobe bronchus and lingular segments was seen. Following that the left lower lobe bronchus was seen. The various segments of the lingula in the left lower lobe segments were atelectatic. No endobronchial tumors or lesions or abnormalities noted. Loose bloody respiratory secretions were all suctioned out. Airway patency was achieved and the bronchoscope was removed. The patient was kept intubated on a mechanical ventilator. Insertion of a thoravent This procedure was done in the intensive care unit. After reviewing the series of x-rays, there was a question of the patient may have an underlying pneumothorax in addition to left-sided pleural effusion. Note that the patient had a bedside ultrasound and this was evaluated and examined by Dr. Medeiros and there was a high suspicion that the patient may have a pneumothorax in addition to pleural effusion. As such, and due to the extreme technical difficulty related to her morbid obese body habitus, I decided to place an anterior Thoravent. This was done under local anesthesia. Anterior chest was palpated and the intercostal space was identified left or to the sternal border at the level of the second to third intercostal space. The skin was incised using a scalpel and following that a 13-Arabic Thoravent was inserted over a trocar. After successful insertion, there was evacuation of at least 800 mL immediately of cloudy blood-tinged pleural effusion. There was also some limited air leak that ultimately subsided. The Thoravent was attached to a Pleur-evac and there position of the tube was confirmed by chest x-ray. There was adequate aeration of the left lung following the procedure. The appropriate dressing was applied.
--- NOTE | 2020-06-04 18:46 | XR ---
EXAMINATION TYPE: XR chest 1V portable DATE OF EXAM: 06/04/2020 COMPARISON: Today HISTORY: Check tube placement TECHNIQUE: Single view FINDINGS: Endotracheal tube is 3.5 cm from the michell. There is nasogastric tube in the stomach. Ther e is left jugular catheter with the tip in the superior vena cava. Tip of the nasogastric tube is not included on this exam. There is moderate left pleural effusion and left pulmonary infiltrate. There are chest leads. IMPRESSION: No change compared to exam 45 minutes ago.
--- NOTE | 2020-06-04 18:48 | XR ---
EXAMINATION TYPE: XR chest 1V portable DATE OF EXAM: 06/04/2020 COMPARISON: Today HISTORY: Tube placement TECHNIQUE: Aisha view FINDINGS: There is left-sided chest tube with the tip over the lateral left upper lobe. There is left pleural effusion and left pulmonary infiltrate. Trachea is midline. I see no pneumothorax. Left jugular catheter has tip in the superior vena cava. Endotracheal tube is 3.5 cm from the michell. There is nasogastric tube in the stomach. IMPRESSION: Chest tube appears to be in good position. No pneumothorax. No change.
[2020-06-04 18:56] LABS: ABG Base Excess -0.3 mmol/L; ABG HCO3 26 mmol/L (21-25); ABG PCO2 49 mmHg (35-45); ABG PH 7.33 (7.35-7.45); ABG PO2 >400 mmHg (83-108); ABG TCO2 27 mmol/L (19-24); Allen Test Performed? Yes
[2020-06-04] MEDS: CHOLECALCIFEROL 1,000 UNIT TAB PO SCH (19:03)
--- NOTE | 2020-06-04 19:57 | US ---
EXAMINATION TYPE: US chest DATE OF EXAM: 06/04/2020 COMPARISON: x-ray 06/04/2020 CLINICAL HISTORY: Left pleural effusion. Possible pneumothorax. TECHNIQUE: Targeted ultrasound of the posterior lower left EXAM MEASUREMENTS: Patient scanned by Dr Medeiros in ICU to assess for possible pneumothorax Exam significantly limited due to patient body habitus and patient positioning. Patient was scanned i n supine position. Limited scanning of the left lateral chest demonstrated small visualized pleural e ffusion. Scanning of the left anterior apical chest demonstrated areas of dirty shadowing in between rib shado ws, which did not move in conjunction with lung respiratory motion, most likely representing pneumoth orax. Site marking of the left anterior apical chest was performed for potential thoracentesis and placemen t by ICU attending physician. IMPRESSIONS: Limited examination demonstrates findings most likely representing left anterior apical chest pneumothorax.
[2020-06-04] MEDS ORDERED: IPRATROPIUM-ALBUTEROL 3 ML NEB INHALATION SCH (20:00)
--- NOTE | 2020-06-04 20:11 | P.PN ---
Progress Note - Text Progress Note Date: 06/04/20 Chief Complaint: Fluid overload History of presenting complaint: This is a pleasant 70-year-old patient was chronic stable medical conditions include CHF EF 55 and 55%, morbid obesity, chronic kidney disease stage IV secondary to nephrosclerosis, renal bone disease, anemia of chronic kidney disease, persistent atrial fibrillation, fatty liver, COPD, primary osteoarthritis, obstructive sleep apnea, chronic gout, on home oxygen, chronic medical debility at her baseline uses a lift a wheelchair. Patient is a resident at [facility]. Patient presents with increasing swelling about a week. Increase in shortness of breath. Appetite is okay. Bowel movements are okay. No fever no chills. Started on IV Lasix. Admitted with CHF exacerbation. Today-so the patient this afternoon. Didn't have much of an appetite. And vomited once. I changed to full liquids. Later patient was taken to for thoracentesis and it was a bit difficult by IR. Patient went into PEA cardiac arrest. intubated. Hypotensive. Moved to ICU. Thora-vent was placed. About 500 mL of bloody fluid was obtained. Review of systems: Was done for constitutional, cardiovascular, GI, pulmonary. relevant finding as above Current medications reviewed in today's electronic records Physical examination: VITAL SIGNS: 97.8, 64, 18, 109/56, 100% on 2 L GENERAL: Laying in bed, tired EYES: Pupils equal. Conjunctiva normal. HEENT: External appearance of nose and ears normal, oral cavity grossly normal. NECK: JVD unable to assess masses not palpable. HEART: First and second heart sounds are normal; no edema. LUNGS: Respiratory rate increased, distant breath sounds. ABDOMEN: Soft, nontender, liver spleen not palpable, no masses palpable. PSYCH: Alert and oriented x3; mood and affect tired. -MUSCULAR skeletal: [place] INVESTIGATIONS, reviewed in the clinical context: Potassium 4.9 bun 96 creatinine 3.74 Previous testing White count 9.3 hemoglobin 7.9 potassium 4.9 bun 90 creatinine 2.6 to. Repeat potassium this morning was 6 EKG tracing personally reviewed by me shows atrial fibrillation rate of 60s Chest x-ray film personally reviewed by me-near whiteout on the left side Assessment: -Acute on Chronic congestive heart failure from diastolic dysfunction EF 55-60% -Chronic kidney disease stage IV secondary to nephrosclerosis with some worsening -Morbid obesity BMI 75.2 -Chronic kidney disease renal bone disease -Anemia of chronic kidney disease -Persistent atrial fibrillation, rate controlled Nonalcoholic fatty liver disease -COPD in an ex-smoker -Primary osteoarthritis -Obstructive sleep apnea -Chronic gout -Chronic hypoxic respiratory failure from COPD -Chronic medical debility and a baseline patient does use a lift to a wheelchair -Thoracentesis with the Thora-vent in place -Acute hypoxic, hypercapnic respiratory failure-requiring ventilator support -Hypotensive shock requiring pressor support Plan: Continue current medication treatment plan. Patient on levo fed. IV propofol, IV Zosyn. Prognosis guarded. Follow
[2020-06-04 20:38] LABS: Appearance,BF Bloody; Color,BF Red; Nucleated Cells, Body Fluid 12500 /uL; RBC, Body Fluid 222500 /uL
[2020-06-04 20:39] LABS: Mononuclear WBC,Body Fluid 69 %; Polynuclear WBC,Body Fluid 31 %
[2020-06-04] MEDS ORDERED: FUROSEMIDE 10 MG/ML 4 ML VIAL IV SCH (21:00)
[2020-06-04] MEDS: SODIUM CHLORIDE 0.9% 1,000 ML IV SCH (21:10)
[2020-06-04] MEDS: ATORVASTATIN 40 MG TAB PO SCH (21:12)
[2020-06-04] MEDS: CHLORHEXIDINE GLUCONATE 15 ML CUP MUCOUS MEM SCH (21:12)
[2020-06-04] MEDS: PIPERACILLIN-TAZOBACTAM 3.375 GM in SODIUM CHLORIDE 0.9% 100 ML IVPB SCH (21:13)
[2020-06-05 00:03] LABS: Glucose,Whole Blood 96 mg/dL (75-99)
[2020-06-05 04:03] LABS: Cholesterol,BF Source Pleural Fluid; Cholesterol,Body Fluid 33 mg/dL; Glucose, BF Source Pleural Fluid; Glucose, Body Fluid 86 mg/dL; LDH, Body Fluid Source Pleural Fluid
[2020-06-05 05:15] LABS: Anisocytosis Slight; Basophils % (A) 0 %; Eosinophils % (A) 0 %; HCT 26.3 % (34.0-46.0); HGB 7.4 gm/dL (11.4-16.0); Hypochromasia Marked; Lymphocytes # (A) 0.6 k/uL (1.0-4.8); Lymphocytes % (A) 4 %; MCH 27.2 pg (25.0-35.0); MCV 97.3 fL (80.0-100.0); Macrocytosis Slight; Mean Platelet Volume 9.5; Monocytes # (A) 0.6 k/uL (0-1.0); Monocytes % (A) 4 %; Neutrophils # (A) 13.8 k/uL (1.3-7.7); Neutrophils % (A) 91 %; Platelet Count 164 k/uL (150-450); Poikilocytosis Slight; RDW 19.8 % (11.5-15.5); WBC 15.2 k/uL (3.8-10.6)
[2020-06-05 05:24] LABS: Albumin 2.5 g/dL (3.5-5.0); Calcium 8.7 mg/dL (8.4-10.2); Potassium 4.4 mmol/L (3.5-5.1); Total Bilirubin 0.9 mg/dL (0.2-1.3); Total Protein 5.5 g/dL (6.3-8.2)
[2020-06-05 05:25] LABS: Allen Test Performed? Yes
[2020-06-05 05:26] LABS: ABG Base Excess 1.5 mmol/L; ABG HCO3 26 mmol/L (21-25); ABG PCO2 37 mmHg (35-45); ABG PH 7.44 (7.35-7.45); ABG PO2 177 mmHg (83-108); ABG TCO2 27 mmol/L (19-24)
--- NOTE | 2020-06-05 07:43 | XR ---
EXAMINATION TYPE: XR chest 1V portable DATE OF EXAM: 06/05/2020 COMPARISON: 06/04/2020 HISTORY: Shortness of breath TECHNIQUE: Single frontal view of the chest is obtained. FINDINGS: There is left-sided chest tube. Tip is indeterminant position. Increasing consolidation in volving the left lung. Small right effusion is seen and there is interstitial process. ET and NG tube appear in good position is a left-sided central line. Atherosclerotic change of the aorta. IMPRESSION: 1. Increasing consolidation may represent pleural effusion or postobstructive pneumonia or atelectasi s with abrupt termination of the left mainstem bronchus. 2. Stable position of a left-sided chest tube may be outside the thoracic cavity should be correlated clinically. 3. Interstitial pattern now presents correlate for mild venous congestion.
[2020-06-05 08:01] LABS: Glucose,Whole Blood 86 mg/dL (75-99)
[2020-06-05] MEDS: IPRATROPIUM-ALBUTEROL 3 ML NEB INHALATION SCH ×4 (08:08→19:59)
--- NOTE | 2020-06-05 08:53 | P.PN ---
Subjective Patient is seen in follow-up for acute kidney injury on chronic kidney disease. Renal function stable. Urine output 60-100 mL an hour. Patient had PEA arrest yesterday and received 1 dose of epinephrine. She is intubated and sedated. Noted to have pneumothorax and has a thoravent in place. 850 mL of purulent drainage so far. She is maintained on normal saline at 100 mL an hour. Diuretics are held. She is currently on about 8 mics of Levophed. Vital signs are stable. Currently on Levophed. General: The patient appeared well nourished and normally developed. HEENT: Head exam is unremarkable. Neck is without jugular venous distension. Intubated. LUNGS: Breath sounds decreased. HEART: Regular rhythm. ABDOMEN: Soft, nontender. Obese. EXTREMITITES: 1+ edema. Chronic changes noted. Objective - Vital Signs Vital signs: Vital Signs Temp 98.5 F 06/05/20 08:00 Pulse 104 H 06/05/20 08:21 Resp 28 H 06/05/20 08:00 BP 150/104 06/04/20 23:00 Pulse Ox 99 06/05/20 08:00 Intake & Output 06/04/20 06/05/20 06/05/20 18:59 06:59 18:59 Intake Total 9.422 1812.074 200 Output Total 20 810 1120 Balance -10.578 1002.074 -920 Weight 203.572 kg Intake: IV 1300 200 Piperacillin-Tazobactam 3 100 .375 gm In Sodium Chloride 0.9% 100 ml @ 25 mls/hr IVPB Q12HR [facility] Rx #:[id number] Sodium Chloride 0.9% 1, 1200 200 000 ml @ 100 mls/hr IV . Q10H [facility] Rx#:[id number] Intake, IV Titration 9.422 512.074 Amount Norepinephrine 32 mg In 6.156 15.340 Sodium Chloride 0.9% 218 ml @ 0.05 MCG/KG/MIN 4. 784 mls/hr IV .Q24H [facility] Rx#:[id number] propofoL 1,000 mg In 3.266 496.734 Empty Bag 1 bag @ Titrate IV .Q0M [facility] Rx#: [id number] Output: Chest Tube Drainage 850 Left Upper Anterior Chest 850 Gastric Drainage 100 Urine 20 810 170 Other: Voiding Method Indwelling Catheter Indwelling Catheter # Bowel Movements 1 ABP, PAP, CO, CI - Last Documented Arterial Blood Pressure 128/57 - Labs CBC & Chem 7: 06/05/20 04:55 06/05/20 04:55 Labs: Abnormal Lab Results - Last 24 Hours (Table) 06/04/20 06/04/20 06/04/20 Range/Units 08:59 16:56 17:05 WBC (3.8-10.6) k/uL RBC (3.80-5.40) m/uL Hgb (11.4-16.0) gm/dL Hct (34.0-46.0) % MCHC (31.0-37.0) g/dL RDW (11.5-15.5) % Neutrophils # (1.3-7.7) k/uL Lymphocytes # (1.0-4.8) k/uL ABG pH 7.12 L* (7.35-7.45) ABG pCO2 85 H* (35-45) mmHg ABG pO2 >400 H (83-108) mmHg ABG HCO3 28 H (21-25) mmol/L ABG Total CO2 30 H (19-24) mmol/L ABG O2 Saturation 100.0 H (94-97) % BUN 96 H (7-17) mg/dL Creatinine 3.74 H (0.52-1.04) mg/dL POC Glucose (mg/dL) 129 H (75-99) mg/dL Total Protein (6.3-8.2) g/dL Albumin (3.5-5.0) g/dL 06/04/20 06/05/20 06/05/20 Range/Units 18:55 04:55 04:55 WBC 15.2 H (3.8-10.6) k/uL RBC 2.70 L (3.80-5.40) m/uL Hgb 7.4 L (11.4-16.0) gm/dL Hct 26.3 L (34.0-46.0) % MCHC 28.0 L (31.0-37.0) g/dL RDW 19.8 H (11.5-15.5) % Neutrophils # 13.8 H (1.3-7.7) k/uL Lymphocytes # 0.6 L (1.0-4.8) k/uL ABG pH 7.33 L (7.35-7.45) ABG pCO2 49 H (35-45) mmHg ABG pO2 >400 H (83-108) mmHg ABG HCO3 26 H (21-25) mmol/L ABG Total CO2 27 H (19-24) mmol/L ABG O2 Saturation 100.0 H (94-97) % BUN 91 H (7-17) mg/dL Creatinine 3.65 H (0.52-1.04) mg/dL POC Glucose (mg/dL) (75-99) mg/dL Total Protein 5.5 L (6.3-8.2) g/dL Albumin 2.5 L (3.5-5.0) g/dL 06/05/20 Range/Units 05:22 WBC (3.8-10.6) k/uL RBC (3.80-5.40) m/uL Hgb (11.4-16.0) gm/dL Hct (34.0-46.0) % MCHC (31.0-37.0) g/dL RDW (11.5-15.5) % Neutrophils # (1.3-7.7) k/uL Lymphocytes # (1.0-4.8) k/uL ABG pH (7.35-7.45) ABG pCO2 (35-45) mmHg ABG pO2 177 H (83-108) mmHg ABG HCO3 26 H (21-25) mmol/L ABG Total CO2 27 H (19-24) mmol/L ABG O2 Saturation 100.0 H (94-97) % BUN (7-17) mg/dL Creatinine (0.52-1.04) mg/dL POC Glucose (mg/dL) (75-99) mg/dL Total Protein (6.3-8.2) g/dL Albumin (3.5-5.0) g/dL Microbiology - Last 24 Hours (Table) 06/04/20 18:57 Gram Stain - Preliminary Pleural Fluid Body Fluid Culture - Preliminary 06/02/20 14:23 Blood Culture - Preliminary Blood No Growth after 48 hours Assessment and Plan Plan: Assessment: 1. Acute kidney injury secondary to ATN secondary to cardiac arrest/hemodynamic instability. Creatinine stable at 3.65. 2. Chronic kidney disease stage IV with baseline creatinine 2.7-3 secondary to nephrosclerosis. 3. Acute on chronic diastolic CHF. 4. Status post PEA arrest on June 04. 5. Anemia of chronic kidney disease maintained on Aranesp. 6. Chronic kidney disease mineral bone disease maintained on calcitriol and PhosLo. 7. Shock possibly septic from pneumonia maintained on Levophed. 8. Pneumothorax status post Thora-Vent placement. Plan: Decrease normal saline to 50 mL an hour. Hold Lasix for now. Follow-up cultures. Continue to monitor renal function and urine output.
--- NOTE | 2020-06-05 09:50 | XR ---
EXAMINATION TYPE: XR chest 1V portable DATE OF EXAM: 06/05/2020 COMPARISON: NONE HISTORY: Central line placement TECHNIQUE: Single frontal view of the chest is obtained. FINDINGS: Chest tube overlies the lateral margin of the left thoracic cavity. Lung apices and lower lung field is not included. There is near complete opacification left hemithorax. Exam is limited due to patient rotation but an ET and NG tube are present. Tip of the left-sided central line appears to be overlying the right atrium. Correlate for underlying CHF with right-sided consolidation and small effusion. IMPRESSION: 1. Left-sided central line is seen with the tip overlying the right atrium. 2. There is near complete opacification of the left hemithorax. 3. Correlate for positioning of left-sided chest tube. 4. Correlate for CHF with small right effusion and interstitial pattern now noted.
[2020-06-05] MEDS: INSULIN ASPART (NovoLOG) 100 UNIT/ML VIAL SQ SCH ×3 (10:47→18:28)
[2020-06-05] MEDS: METOPROLOL TARTRATE 25 MG TAB PO SCH ×2 (10:50→17:06)
[2020-06-05] MEDS: allopurinoL 100 MG TAB PO SCH (10:52)
[2020-06-05] MEDS: CALCIUM ACETATE 667 MG TAB PO SCH (10:52)
[2020-06-05] MEDS: MIDODRINE 5 MG TAB PO SCH ×3 (10:52→17:24)
[2020-06-05] MEDS: PIPERACILLIN-TAZOBACTAM 3.375 GM in SODIUM CHLORIDE 0.9% 100 ML IVPB SCH ×2 (10:52→20:36)
[2020-06-05] MEDS: TRIAMCINOLONE 0.1% CREAM 80 GM TUBE TOPICAL SCH ×2 (10:53→20:37)
[2020-06-05] MEDS: NON FORMULARY DRUG (Linaclotide [Linzess] 145 MCG) PO SCH (10:53)
[2020-06-05] MEDS: CHLORHEXIDINE GLUCONATE 15 ML CUP MUCOUS MEM SCH ×2 (10:53→20:36)
[2020-06-05] MEDS: FOLIC ACID 1 MG TAB PO SCH (12:38)
[2020-06-05] MEDS: ASPIRIN 81 MG PO SCH (12:38)
--- NOTE | 2020-06-05 12:54 | P.PN ---
Subjective Progress Note Date: 06/05/20 On 06/05/2020 and seeing this patient for a follow-up. The patient was intubated and placed on a mechanical ventilator yesterday. I was able to bronchoscope the patient and endobronchially she is patent and the patient has a patent left mainstem bronchus and the upper lobe and lower lobe are also patent. There is some compressive atelectasis of the radius segment as mentioned. I inserted a Thoravent and immediately there was a 850 mL of blood-tinged pleural fluid was aspirated from the left hemithorax. Since then, the output dropped and today's chest x-ray shows that the catheter itself is outside the chest. As such, I replaced the tube another 13-Tajik Thoravent. Immediately another 550 mL of pleural fluid was again aspirated. The fluid has a glucose of 86, LDH 120, cholesterol of 33, and a protein of 2.6. The patient fluid also has a white cell count of 12.5 K. The culture is still pending. The fluid cytology still pending. The chest x-ray from today shows worsening of the opacification of the left lung. As such the Thoravent was replaced. It acutely remains in a good location. The patient is an assist-control mode of ventilation at the rate of 20 with a tidal volume 400 and FiO2 of 50% with a PEEP of 5. Peak airway pressure is 30, static pressure is 22, the blood gases showed a pH of 7.44 with a pCO2 of 37 and pO2 of 177. She was found to be hypothermic and she was given external warming. She is on from before running at 40 mics and the patient is on norepinephrine infusion running at 0.04 migraines per KG per minute. She remains on IV fluid with normal saline today to 100 mL an hour. Tube feeds will be also started. The patient's remains in atrial fibrillation for now. Objective - Vital Signs Vital signs: Vital Signs Temp 98.5 F 06/05/20 08:00 Pulse 84 06/05/20 12:00 Resp 28 H 06/05/20 12:00 BP 150/104 06/04/20 23:00 Pulse Ox 100 06/05/20 12:00 Intake & Output 06/04/20 06/05/20 06/05/20 18:59 06:59 18:59 Intake Total 9.422 1812.074 600 Output Total 20 810 2140 Balance -10.578 1002.074 -1540 Weight 203.572 kg 203.572 kg Intake: IV 1300 500 Piperacillin-Tazobactam 3 100 100 .375 gm In Sodium Chloride 0.9% 100 ml @ 25 mls/hr IVPB Q12HR [facility] Rx #:[id number] Sodium Chloride 0.9% 1, 1200 400 000 ml @ 50 mls/hr IV . Q20H [facility] Rx#:[id number] Intake, IV Titration 9.422 512.074 100 Amount Norepinephrine 32 mg In 6.156 15.340 Sodium Chloride 0.9% 218 ml @ 0.05 MCG/KG/MIN 4. 784 mls/hr IV .Q24H [facility] Rx#:[id number] propofoL 1,000 mg In 3.266 496.734 100 Empty Bag 1 bag @ Titrate IV .Q0M [facility] Rx#: [id number] Output: Chest Tube Drainage 1420 Left Upper Anterior Chest 1420 Gastric Drainage 100 Urine 20 810 620 Other: Voiding Method Indwelling Catheter Indwelling Catheter Indwelling Catheter # Bowel Movements 1 ABP, PAP, CO, CI - Last Documented Arterial Blood Pressure 97/51 - Exam Gen. appearance the patient is morbidly obese with a BMI of 74.7., Comfortable not in distress. Was sedated intubated on a mechanical ventilator. She has an orotracheal and orogastric tube are both in place. Head exam was generally normal. There was no scleral icterus or corneal arcus. Mucous membranes were moist. Neck was supple and without jugular venous distension, thyromegaly, or carotid bruits. Carotids were easily palpable bilaterally. There was no adenopathy. The patient has a left IJ triple-lumen catheter in place. Lungs sounds are diminished in the left compared to the right. The patient has a fluoroscopy vent inserted over the anterior aspect of the left chest lateral to the sternal border at the level of the second and the third intercostal space. Cardiac exam revealed the PMI to be normally situated and sized. The rhythm was regular and no extrasystoles were noted during several minutes of auscultation. The first and second heart sounds were normal and physiologic splitting of the second heart sound was noted. There were no murmurs, rubs, clicks, or gallops. Abdomen is obese soft nontender. Organs cannot be palpated as the patient is morbidly obese. Extremities revealed +1 pitting edema and there is no cyanosis or clubbing. neurologically the patient is sedated, comfortable no acute distress. - Labs CBC & Chem 7: 06/05/20 04:55 06/05/20 04:55 Labs: Abnormal Lab Results - Last 24 Hours (Table) 06/04/20 06/04/20 06/04/20 Range/Units 16:56 17:05 18:55 WBC (3.8-10.6) k/uL RBC (3.80-5.40) m/uL Hgb (11.4-16.0) gm/dL Hct (34.0-46.0) % MCHC (31.0-37.0) g/dL RDW (11.5-15.5) % Neutrophils # (1.3-7.7) k/uL Lymphocytes # (1.0-4.8) k/uL ABG pH 7.12 L* 7.33 L (7.35-7.45) ABG pCO2 85 H* 49 H (35-45) mmHg ABG pO2 >400 H >400 H (83-108) mmHg ABG HCO3 28 H 26 H (21-25) mmol/L ABG Total CO2 30 H 27 H (19-24) mmol/L ABG O2 Saturation 100.0 H 100.0 H (94-97) % BUN (7-17) mg/dL Creatinine (0.52-1.04) mg/dL POC Glucose (mg/dL) 129 H (75-99) mg/dL Total Protein (6.3-8.2) g/dL Albumin (3.5-5.0) g/dL 06/05/20 06/05/20 06/05/20 Range/Units 04:55 04:55 05:22 WBC 15.2 H (3.8-10.6) k/uL RBC 2.70 L (3.80-5.40) m/uL Hgb 7.4 L (11.4-16.0) gm/dL Hct 26.3 L (34.0-46.0) % MCHC 28.0 L (31.0-37.0) g/dL RDW 19.8 H (11.5-15.5) % Neutrophils # 13.8 H (1.3-7.7) k/uL Lymphocytes # 0.6 L (1.0-4.8) k/uL ABG pH (7.35-7.45) ABG pCO2 (35-45) mmHg ABG pO2 177 H (83-108) mmHg ABG HCO3 26 H (21-25) mmol/L ABG Total CO2 27 H (19-24) mmol/L ABG O2 Saturation 100.0 H (94-97) % BUN 91 H (7-17) mg/dL Creatinine 3.65 H (0.52-1.04) mg/dL POC Glucose (mg/dL) (75-99) mg/dL Total Protein 5.5 L (6.3-8.2) g/dL Albumin 2.5 L (3.5-5.0) g/dL Microbiology - Last 24 Hours (Table) 06/04/20 18:57 Gram Stain - Preliminary Pleural Fluid Body Fluid Culture - Preliminary 06/02/20 14:23 Blood Culture - Preliminary Blood No Growth after 48 hours Assessment and Plan Plan: 1 acute hypoxic respiratory failure post thoracentesis. The patient had a complete opacification of the left lung due to a combination of atelectasis and effusion. The patient is currently intubated on a mechanical ventilator. The patient has had a Thoravent inserted to the left lung with evacuation of at least 1.3 L of pleural fluid and the fluid seems to be transudate at this point in time. Fluid cytology still pending for now. A second Thoravent was inserted and the original tube that was inserted yesterday was replaced today. The patient remains intubated on a mechanical ventilator and sedated and, comfortable. There is ongoing volume loss in the left lower lobe. Consider the possibility of an underlying atelectasis or a mass. This is difficult to characterize further the patient is morbidly obese and she would not fit into our CAT scan machine. 2 hypotension, consider pneumonia of the left lower lobe, consider septic shock. No evidence of any tension in the chest area the patient's airway pressures are on the lower and post intubation. The patient is currently on pressors and the presence of being gradually weaned off. 3 morbid obesity with a BMI of 74.2 4 chronic hypoxic respiratory failure currently on 2 L of oxygen by nasal cannula 5 Chronic kidney disease stage IV secondary to nephrosclerosis with some worsening, currently on IV Lasix. 6 Chronic gastritis finding any recent EGD 7 vaginal bleeding.-Intermittent 8 Chronic congestive heart failure from diastolic dysfunction EF 55-60% 9 Morbid obesity BMI 34.2 10 renal bone disease 11 Anemia of chronic kidney disease 12 Persistent atrial fibrillation, rate controlled 13 Nonalcoholic fatty liver disease 14 COPD in an ex-smoker 15 Primary osteoarthritis 16 Obstructive sleep apnea 17 Chronic gout 18 Chronic hypoxic respiratory failure from COPD 19 Chronic medical debility and a baseline patient does use a lift to a wheelc hair Plan Continue vent support Keep the patient sedated with propofol The Thoravent has been replaced Monitor the output from the chest Awaiting pleural fluid cytology and cultures Continue Zosyn Wean off norepinephrine Condition is critical we'll continue to follow and will make further accommo dations based on her progress. This evaluation was done and more than 30 minutes and the family has been updated on her condition. Time with Patient: Greater than 30
[2020-06-05 12:55] LABS: Glucose,Whole Blood 84 mg/dL (75-99)
--- NOTE | 2020-06-05 12:56 | P.PCN ---
Date of Procedure: 06/05/20 Preoperative Diagnosis: Left-sided pleural effusion Postoperative Diagnosis: Left-sided pleural effusion Procedure(s) Performed: Thoravent insertion, 13-Swedish catheter. Anesthesia: local Surgeon: Nikky James Estimated Blood Loss (ml): 0 Pathology: none sent Condition: critical Disposition: ICU Description of Procedure: Insertion of a thoravent This procedure was done in the intensive care unit. After reviewing the series of x-rays, there was a question of the patient may have an underlying pneumothorax in addition to left-sided pleural effusion. The previously inserted tube was out of the chest and based on that. Catheter was removed. This current procedure was done under local anesthesia. Anterior chest was palpated and the intercostal space was identified left or to the sternal border at the level of the second to third intercostal space. I made the incision a bit more medial compared to the original inserted Thoravent catheter. The skin was incised using a scalpel and following that a 13-Swedish Thoravent was inserted over a trocar. After successful insertion, there was evacuation of at least 550 mL immediately of cloudy blood-tinged pleural effusion. There was also some limited air leak that ultimately subsided. The Thoravent was attached to a Pleur-evac and there position of the tube was confirmed by chest x-ray. There was adequate aeration of the left lung following the procedure. The appropriate dressing was applied.
[2020-06-05] MEDS: SODIUM CHLORIDE 0.9% 1,000 ML IV SCH ×2 (13:07→18:30)
[2020-06-05] MEDS: CHOLECALCIFEROL 1,000 UNIT TAB PO SCH (17:24)
[2020-06-05 18:27] LABS: Glucose,Whole Blood 102 mg/dL (75-99)
[2020-06-05] MEDS: ATORVASTATIN 40 MG TAB PO SCH (20:36)
--- NOTE | 2020-06-05 21:21 | P.PN ---
Progress Note - Text Progress Note Date: 06/05/20 Chief Complaint: Fluid overload History of presenting complaint: This is a pleasant 70-year-old patient was chronic stable medical conditions include CHF EF 55 and 55%, morbid obesity, chronic kidney disease stage IV secondary to nephrosclerosis, renal bone disease, anemia of chronic kidney disease, persistent atrial fibrillation, fatty liver, COPD, primary osteoarthritis, obstructive sleep apnea, chronic gout, on home oxygen, chronic medical debility at her baseline uses a lift a wheelchair. Patient is a resident at [facility]. Patient presents with increasing swelling about a week. Increase in shortness of breath. Appetite is okay. Bowel movements are okay. No fever no chills. Started on IV Lasix. Admitted with CHF exacerbation. Put on IV Lasix. On June 04 -was taken to for thoracentesis and it was a bit difficult by IR. Patient went into PEA cardiac arrest. intubated. Hypotensive. Moved to ICU. Thora-vent was placed. About 850 mL of pus-bloody fluid was obtained. [id number] FiO2 50. Telemetry shows sinus rhythm. On IV levo fed and propofol. Left-sided chest tube putting out some thick bloody aspirate Review of systems: Patient intubated Active Medications Acetaminophen (Tylenol Tab) 650 mg PO Q4H PRN PRN Reason: Pain or Fever > 100.5 Acetaminophen/Codeine Phosphate (Tylenol #3) 1 each PO TID PRN PRN Reason: Pain Last Admin: 06/04/20 01:23 Dose: 1 each Documented by: Albuterol/Ipratropium (Duoneb 0.5 Mg-3 Mg/3 Ml Soln) 3 ml INHALATION RT-QID [facility] Last Admin: 06/05/20 19:59 Dose: 3 ml Documented by: Allopurinol (Zyloprim) 100 mg PO DAILY@0800 [facility] Last Admin: 06/05/20 10:52 Dose: 100 mg Documented by: Aspirin (Aspirin) 81 mg PO DAILY@1200 [facility] Last Admin: 06/05/20 12:38 Dose: 81 mg Documented by: Atorvastatin Calcium (Lipitor) 40 mg PO HS@2100 [facility] Last Admin: 06/05/20 20:36 Dose: 40 mg Documented by: Bisacodyl (Dulcolax) 10 mg RECTAL DAILY PRN PRN Reason: Constipation Last Admin: 06/03/20 10:28 Dose: 10 mg Documented by: Calcitriol (Rocaltrol) 0.25 mcg PO DAILY@1700 [facility] Last Admin: 06/05/20 18:54 Dose: 0.25 mcg Documented by: Calcium Acetate (Phoslo) 667 mg PO DAILY@0800 [facility] Last Admin: 06/05/20 10:52 Dose: 667 mg Documented by: Chlorhexidine Gluconate (Peridex) 15 ml MUCOUS MEM BID [facility] Last Admin: 06/05/20 20:36 Dose: 15 ml Documented by: Cholecalciferol (Vitamin D3 (25 Mcg = 1000 Iu)) 2,000 unit PO DAILY@1700 [facility] Last Admin: 06/05/20 17:24 Dose: 2,000 unit Documented by: Darbepoetin Juan Jose (Aranesp) 60 mcg SQ TH [facility] Last Admin: 06/03/20 15:58 Dose: 60 mcg Documented by: Folic Acid (Folic Acid) 1 mg PO DAILY@1200 [facility] Last Admin: 06/05/20 12:38 Dose: 1 mg Documented by: Propofol 1,000 mg/ IV Solution 100 mls @ 0 mls/hr IV .Q0M [facility]; Protocol Last Admin: 06/05/20 18:54 Dose: 40 mcg/kg/min, 48.984 mls/hr Documented by: Norepinephrine Bitartrate 32 (mg/ Sodium Chloride) 250 mls @ 4.784 mls/hr IV .Q24H [facility]; Protocol Last Titration: 06/05/20 18:23 Dose: 0.03 mcg/kg/min, 2.87 mls/hr Documented by: Piperacillin Sod/Tazobactam (Sod 3.375 gm/ Sodium Chloride) 100 mls @ 25 mls/hr IVPB Q12HR [facility] Last Admin: 06/05/20 20:36 Dose: 25 mls/hr Documented by: Sodium Chloride (Saline 0.9%) 1,000 mls @ 50 mls/hr IV .Q20H [facility] Last Admin: 06/05/20 18:30 Dose: Not Given Documented by: Insulin Aspart (Novolog) 0 unit SQ Q6H [facility]; Protocol Last Admin: 06/05/20 18:28 Dose: Not Given Documented by: Lactulose (Cephulac) 10 gm PO BID PRN PRN Reason: Constipation Loratadine (Claritin) 10 mg PO Q48H PRN PRN Reason: Allergy Symptoms Magnesium Hydroxide (Milk Of Magnesia) 2,400 mg PO DAILY PRN PRN Reason: Constipation Metoprolol Tartrate (Lopressor) 25 mg PO BID@0800,1700 [facility] Last Admin: 06/05/20 17:06 Dose: Not Given Documented by: Midodrine (Proamatine) 5 mg PO AC-TID [facility] Last Admin: 06/05/20 17:24 Dose: 5 mg Documented by: Non-Formulary Medication (Linaclotide [Linzess]) 145 mcg PO DAILY@0800 [facility] Last Admin: 06/05/20 10:53 Dose: Not Given Documented by: Ondansetron HCl (Zofran) 4 mg IVP Q6HR PRN PRN Reason: Nausea And Vomiting Last Admin: 06/04/20 05:36 Dose: 4 mg Documented by: Senna (Senokot) 8.6 - 17.2 mg PO HS PRN PRN Reason: Constipation Last Admin: 06/03/20 10:28 Dose: 17.2 mg Documented by: Triamcinolone Acetonide (Kenalog) 1 applic TOPICAL BID [facility] Last Admin: 06/05/20 20:37 Dose: 1 applic Documented by: Active Medications Acetaminophen (Tylenol Tab) 650 mg PO Q4H PRN PRN Reason: Pain or Fever > 100.5 Acetaminophen/Codeine Phosphate (Tylenol #3) 1 each PO TID PRN PRN Reason: Pain Last Admin: 06/04/20 01:23 Dose: 1 each Documented by: Albuterol/Ipratropium (Duoneb 0.5 Mg-3 Mg/3 Ml Soln) 3 ml INHALATION RT-QID [facility] Last Admin: 06/05/20 19:59 Dose: 3 ml Documented by: Allopurinol (Zyloprim) 100 mg PO DAILY@0800 [facility] Last Admin: 06/05/20 10:52 Dose: 100 mg Documented by: Aspirin (Aspirin) 81 mg PO DAILY@1200 [facility] Last Admin: 06/05/20 12:38 Dose: 81 mg Documented by: Atorvastatin Calcium (Lipitor) 40 mg PO HS@2100 [facility] Last Admin: 06/05/20 20:36 Dose: 40 mg Documented by: Bisacodyl (Dulcolax) 10 mg RECTAL DAILY PRN PRN Reason: Constipation Last Admin: 06/03/20 10:28 Dose: 10 mg Documented by: Calcitriol (Rocaltrol) 0.25 mcg PO DAILY@1700 [facility] Last Admin: 06/05/20 18:54 Dose: 0.25 mcg Documented by: Calcium Acetate (Phoslo) 667 mg PO DAILY@0800 [facility] Last Admin: 06/05/20 10:52 Dose: 667 mg Documented by: Chlorhexidine Gluconate (Peridex) 15 ml MUCOUS MEM BID [facility] Last Admin: 06/05/20 20:36 Dose: 15 ml Documented by: Cholecalciferol (Vitamin D3 (25 Mcg = 1000 Iu)) 2,000 unit PO DAILY@1700 [facility] Last Admin: 06/05/20 17:24 Dose: 2,000 unit Documented by: Darbepoetin Juan Jose (Aranesp) 60 mcg SQ TH [facility] Last Admin: 06/03/20 15:58 Dose: 60 mcg Documented by: Folic Acid (Folic Acid) 1 mg PO DAILY@1200 [facility] Last Admin: 06/05/20 12:38 Dose: 1 mg Documented by: Propofol 1,000 mg/ IV Solution 100 mls @ 0 mls/hr IV .Q0M [facility]; Protocol Last Admin: 06/05/20 18:54 Dose: 40 mcg/kg/min, 48.984 mls/hr Documented by: Norepinephrine Bitartrate 32 (mg/ Sodium Chloride) 250 mls @ 4.784 mls/hr IV .Q24H [facility]; Protocol Last Titration: 06/05/20 18:23 Dose: 0.03 mcg/kg/min, 2.87 mls/hr Documented by: Piperacillin Sod/Tazobactam (Sod 3.375 gm/ Sodium Chloride) 100 mls @ 25 mls/hr IVPB Q12HR [facility] Last Admin: 06/05/20 20:36 Dose: 25 mls/hr Documented by: Sodium Chloride (Saline 0.9%) 1,000 mls @ 50 mls/hr IV .Q20H [facility] Last Admin: 06/05/20 18:30 Dose: Not Given Documented by: Insulin Aspart (Novolog) 0 unit SQ Q6H [facility]; Protocol Last Admin: 06/05/20 18:28 Dose: Not Given Documented by: Lactulose (Cephulac) 10 gm PO BID PRN PRN Reason: Constipation Loratadine (Claritin) 10 mg PO Q48H PRN PRN Reason: Allergy Symptoms Magnesium Hydroxide (Milk Of Magnesia) 2,400 mg PO DAILY PRN PRN Reason: Constipation Metoprolol Tartrate (Lopressor) 25 mg PO BID@0800,1700 [facility] Last Admin: 06/05/20 17:06 Dose: Not Given Documented by: Midodrine (Proamatine) 5 mg PO AC-TID [facility] Last Admin: 06/05/20 17:24 Dose: 5 mg Documented by: Non-Formulary Medication (Linaclotide [Linzess]) 145 mcg PO DAILY@0800 [facility] Last Admin: 06/05/20 10:53 Dose: Not Given Documented by: Ondansetron HCl (Zofran) 4 mg IVP Q6HR PRN PRN Reason: Nausea And Vomiting Last Admin: 06/04/20 05:36 Dose: 4 mg Documented by: Senna (Senokot) 8.6 - 17.2 mg PO HS PRN PRN Reason: Constipation Last Admin: 06/03/20 10:28 Dose: 17.2 mg Documented by: Triamcinolone Acetonide (Kenalog) 1 applic TOPICAL BID [facility] Last Admin: 06/05/20 20:37 Dose: 1 applic Documented by: Physical examination: VITAL SIGNS: 97.7, 84, 28, 97/51, 100% on the ventilator GENERAL: Laying in bed, intubated EYES: Pupils equal. Conjunctiva normal. HEENT: External appearance of nose and ears normal, oral cavity-endotracheal tube NECK: JVD unable to assess masses not palpable. HEART: First and second heart sounds are normal; no edema. LUNGS: Respiratory rate increased, distant breath [id number] chest tube ABDOMEN: Soft, nontender, liver spleen not palpable, no masses palpable. PSYCH: Sedated -MUSCULAR skeletal: [place] INVESTIGATIONS, reviewed in the clinical context: White count 15.2 hemoglobin 7.4 potassium 4.4 creatinine 3.65 Chest x-ray near-complete or basophilic dictation of the left hemithorax with chest tube Previous testing White count 9.3 hemoglobin 7.9 potassium 4.9 bun 90 creatinine 2.6 to. Repeat potassium this morning was 6 EKG tracing personally reviewed by me shows atrial fibrillation rate of 60s Chest x-ray film personally reviewed by me-near whiteout on the left side Assessment: - -Acute on Chronic congestive heart failure from diastolic dysfunction EF 55-60% -Left pleural effusion 8 50 mL of fluid evacuated without Thora-vent now with the chest tube-slow to respond -Chronic kidney disease stage IV secondary to nephrosclerosis with some worsening -Morbid obesity BMI 75.2 -Chronic kidney disease renal bone disease -Anemia of chronic kidney disease -Persistent atrial fibrillation, rate controlled Nonalcoholic fatty liver disease -COPD in an ex-smoker -Primary osteoarthritis -Obstructive sleep apnea -Chronic gout -Chronic hypoxic respiratory failure from COPD -Chronic medical debility and a baseline patient does use a lift to a wheelchair -Thoracentesis with the Thora-vent in place -Acute hypoxic, hypercapnic respiratory failure-requiring ventilator support- slow to respond -Hypotensive shock requiring pressor support Plan: Patient remains on the ventilator, on propofol at levo fed. Antibodies include IV Zosyn. Other medications to continue. Prognosis guarded. Patient's granddaughter the bedside.
[2020-06-06 00:11] LABS: Glucose,Whole Blood 110 mg/dL (75-99)
[2020-06-06] MEDS: INSULIN ASPART (NovoLOG) 100 UNIT/ML VIAL SQ SCH ×4 (00:48→18:37)
[2020-06-06 01:17] LABS: Glucose,Whole Blood 111 mg/dL (75-99)
[2020-06-06 04:43] LABS: Anisocytosis Slight; Basophils % (A) 0 %; Eosinophils # (A) 0.1 k/uL (0-0.7); Eosinophils % (A) 1 %; HGB 7.4 gm/dL (11.4-16.0); Hypochromasia Marked; Lymphocytes # (A) 0.9 k/uL (1.0-4.8); Lymphocytes % (A) 8 %; MCH 27.3 pg (25.0-35.0); MCHC 28.5 g/dL (31.0-37.0); MCV 95.7 fL (80.0-100.0); Macrocytosis Slight; Mean Platelet Volume 9.7; Monocytes # (A) 0.5 k/uL (0-1.0); Monocytes % (A) 4 %; Neutrophils # (A) 9.6 k/uL (1.3-7.7); Neutrophils % (A) 86 %; Platelet Count 139 k/uL (150-450); Poikilocytosis Moderate; RBC 2.72 m/uL (3.80-5.40); RDW 19.6 % (11.5-15.5); WBC 11.2 k/uL (3.8-10.6)
[2020-06-06 04:53] LABS: Calcium 8.5 mg/dL (8.4-10.2); Potassium 3.9 mmol/L (3.5-5.1)
[2020-06-06 05:13] LABS: Glucose,Whole Blood 132 mg/dL (75-99)
[2020-06-06] MEDS: NOREPINEPHRINE 32 MG in SODIUM CHLORIDE 0.9% 218 ML IV SCH ×2 (05:15→16:54)
[2020-06-06 05:18] LABS: ABG Base Excess 1.9 mmol/L; ABG HCO3 26 mmol/L (21-25); ABG PCO2 35 mmHg (35-45); ABG PH 7.47 (7.35-7.45); ABG PO2 242 mmHg (83-108); ABG TCO2 27 mmol/L (19-24)
[2020-06-06] MEDS: MIDODRINE 5 MG TAB PO SCH ×3 (06:37→16:54)
[2020-06-06 07:54] LABS: Glucose,Whole Blood 118 mg/dL (75-99)
[2020-06-06] MEDS ORDERED: FUROSEMIDE 10 MG/ML 4 ML VIAL IV STA (08:18)
--- NOTE | 2020-06-06 08:18 | P.PN ---
Subjective Patient is seen in follow-up for acute kidney injury on chronic kidney disease. Renal function stable. Urine output 50-100 mL an hour. Patient had PEA arrest on June 04 and received 1 dose of epinephrine. She is intubated and sedated. Noted to have pneumothorax and has a thoravent in place. 850 mL of purulent drainage initially and another 550 mL yesterday. She is maintained on normal saline at 50 mL an hour. Also receiving tube feeding. Diuretics are held. Remains on Levophed. Vital signs are stable. Currently on Levophed. General: The patient appeared well nourished and normally developed. HEENT: Head exam is unremarkable. Neck is without jugular venous distension. Intubated. LUNGS: Breath sounds decreased. HEART: Regular rhythm. ABDOMEN: Soft, nontender. Obese. EXTREMITITES: 1+ edema. Chronic changes noted. Objective - Vital Signs Vital signs: Vital Signs Temp 97.7 F 06/06/20 08:00 Pulse 87 06/06/20 08:00 Resp 28 H 06/06/20 08:00 BP 150/104 06/04/20 23:00 Pulse Ox 100 06/06/20 08:00 Intake & Output 06/05/20 06/06/20 06/06/20 18:59 06:59 18:59 Intake Total 0034.034 0633.760 282 Output Total 2805 805 130 Balance -1151.525 907.760 152 Weight 202.6 kg 204.253 kg Intake: IV 966 716 112 0.9 pressure bag 66 66 12 Piperacillin-Tazobactam 3 100 100 .375 gm In Sodium Chloride 0.9% 100 ml @ 25 mls/hr IVPB Q12HR [facility] Rx #:[id number] Sodium Chloride 0.9% 1, 800 550 100 000 ml @ 50 mls/hr IV . Q20H [facility] Rx#:[id number] Intake, IV Titration 537.475 476.760 100 Amount Norepinephrine 32 mg In 79.076 Sodium Chloride 0.9% 218 ml @ 0.05 MCG/KG/MIN 4. 784 mls/hr IV .Q24H [facility] Rx#:[id number] propofoL 1,000 mg In 458.399 476.760 100 Empty Bag 1 bag @ Titrate IV .Q0M [facility] Rx#: [id number] Tube Feeding 120 430 40 Other 30 90 30 Output: Chest Tube Drainage 1550 Left Upper Anterior Chest 1550 Gastric Drainage 100 Urine 1155 805 130 Other: Voiding Method Indwelling Catheter Indwelling Catheter ABP, PAP, CO, CI - Last Documented Arterial Blood Pressure 117/58 - Labs CBC & Chem 7: 06/06/20 04:30 06/06/20 04:30 Labs: Abnormal Lab Results - Last 24 Hours (Table) 06/05/20 06/06/20 06/06/20 Range/Units 18:26 00:09 01:15 WBC (3.8-10.6) k/uL RBC (3.80-5.40) m/uL Hgb (11.4-16.0) gm/dL Hct (34.0-46.0) % MCHC (31.0-37.0) g/dL RDW (11.5-15.5) % Plt Count (150-450) k/uL Neutrophils # (1.3-7.7) k/uL Lymphocytes # (1.0-4.8) k/uL ABG pH (7.35-7.45) ABG pO2 (83-108) mmHg ABG HCO3 (21-25) mmol/L ABG Total CO2 (19-24) mmol/L ABG O2 Saturation (94-97) % BUN (7-17) mg/dL Creatinine (0.52-1.04) mg/dL Glucose (74-99) mg/dL POC Glucose (mg/dL) 102 H 110 H 111 H (75-99) mg/dL 06/06/20 06/06/20 06/06/20 Range/Units 04:30 04:30 05:11 WBC 11.2 H (3.8-10.6) k/uL RBC 2.72 L (3.80-5.40) m/uL Hgb 7.4 L (11.4-16.0) gm/dL Hct 26.0 L (34.0-46.0) % MCHC 28.5 L (31.0-37.0) g/dL RDW 19.6 H (11.5-15.5) % Plt Count 139 L (150-450) k/uL Neutrophils # 9.6 H (1.3-7.7) k/uL Lymphocytes # 0.9 L (1.0-4.8) k/uL ABG pH (7.35-7.45) ABG pO2 (83-108) mmHg ABG HCO3 (21-25) mmol/L ABG Total CO2 (19-24) mmol/L ABG O2 Saturation (94-97) % BUN 91 H (7-17) mg/dL Creatinine 3.48 H (0.52-1.04) mg/dL Glucose 113 H (74-99) mg/dL POC Glucose (mg/dL) 132 H (75-99) mg/dL 06/06/20 06/06/20 Range/Units 05:15 07:53 WBC (3.8-10.6) k/uL RBC (3.80-5.40) m/uL Hgb (11.4-16.0) gm/dL Hct (34.0-46.0) % MCHC (31.0-37.0) g/dL RDW (11.5-15.5) % Plt Count (150-450) k/uL Neutrophils # (1.3-7.7) k/uL Lymphocytes # (1.0-4.8) k/uL ABG pH 7.47 H (7.35-7.45) ABG pO2 242 H (83-108) mmHg ABG HCO3 26 H (21-25) mmol/L ABG Total CO2 27 H (19-24) mmol/L ABG O2 Saturation 100.0 H (94-97) % BUN (7-17) mg/dL Creatinine (0.52-1.04) mg/dL Glucose (74-99) mg/dL POC Glucose (mg/dL) 118 H (75-99) mg/dL Microbiology - Last 24 Hours (Table) 06/04/20 18:57 Gram Stain - Preliminary Pleural Fluid Body Fluid Culture - Preliminary 06/02/20 14:23 Blood Culture - Preliminary Blood No Growth after 72 hours Assessment and Plan Plan: Assessment: 1. Acute kidney injury secondary to ATN secondary to cardiac arrest/hemodynamic instability. Creatinine stable at 3.48. 2. Chronic kidney disease stage IV with baseline creatinine 2.7-3 secondary to nephrosclerosis. 3. Acute on chronic diastolic CHF. 4. Status post PEA arrest on June 04. 5. Anemia of chronic kidney disease maintained on Aranesp. 6. Chronic kidney disease mineral bone disease maintained on calcitriol and PhosLo. 7. Shock possibly septic from pneumonia maintained on Levophed. 8. Pneumothorax status post Thora-Vent placement. Plan: Hep-Lock IV fluids. Lasix 40 mg IV once today. Follow-up cultures. Continue to monitor renal function and urine output.
[2020-06-06] MEDS: IPRATROPIUM-ALBUTEROL 3 ML NEB INHALATION SCH ×4 (08:39→20:02)
[2020-06-06] MEDS: PIPERACILLIN-TAZOBACTAM 3.375 GM in SODIUM CHLORIDE 0.9% 100 ML IVPB SCH ×2 (09:00→21:34)
[2020-06-06] MEDS: NON FORMULARY DRUG (Linaclotide [Linzess] 145 MCG) PO SCH (09:05)
[2020-06-06] MEDS: allopurinoL 100 MG TAB PO SCH (10:48)
[2020-06-06] MEDS: CHLORHEXIDINE GLUCONATE 15 ML CUP MUCOUS MEM SCH ×2 (10:48→21:35)
[2020-06-06] MEDS: METOPROLOL TARTRATE 25 MG TAB PO SCH ×2 (10:51→16:53)
[2020-06-06] MEDS: CALCIUM ACETATE 667 MG TAB PO SCH (10:52)
[2020-06-06] MEDS: TRIAMCINOLONE 0.1% CREAM 80 GM TUBE TOPICAL SCH ×2 (11:01→21:35)
[2020-06-06 11:50] LABS: Glucose,Whole Blood 117 mg/dL (75-99)
--- NOTE | 2020-06-06 12:21 | P.PN ---
Subjective Progress Note Date: 06/06/20 06/06/2020, the patient remains intubated on a mechanical ventilator. The patient is currently sedated with propofol running at 40 g per KG per minute. The patient is requiring low-dose norepinephrine infusion for blood pressure support and this is running at 0.0 mg per KG per minute. The patient is receiving enteral feeding with vital high protein at the rate of 50 mL an hour. The patient has a fluoroscopy vent on the left lung. A total of 700 mL of fluid was aspirated yesterday. The fluid is a bit bloody and creamy and esophagus and there is a possibility of a chylothorax. The initial analysis came back as a transudate with a low LDH and low protein. The fluid triglycerides still pen ding for now. Meanwhile, the patient had a follow-up chest x-ray today that showed that the Thoravent is adequate location. There is some improved aeration left upper lobe. His volume loss in the left lung along with some ongoing consolidation of left lower lobe. The ET tube is in a good location. The patient has some cardiomegaly. The patient is currently on assist control mode of ventilation. The patient is on a assist-control of 20 with a rate of 20 and a tidal volume of 400 and FiO2 of 50% and a PEEP of 5. The pH is at 7.47 with a pCO2 of 35 and pO2 of 232. The patient's peak air pressure is around 30 to anesthetic pressures somewhat elevated this is secondary and this is secondary to extrapulmonary restriction with elevation of the anesthetic pressures. Adequate urine output. Lasix was given by nephrology to dose of 40 mg 1. There is some edema lower extremities. Fluid cytology from the left lung is still pending for now. Objective - Vital Signs Vital signs: Vital Signs Temp 97.7 F 06/06/20 08:00 Pulse 92 06/06/20 12:07 Resp 28 H 06/06/20 11:00 BP 150/104 06/04/20 23:00 Pulse Ox 99 06/06/20 11:00 Intake & Output 06/05/20 06/06/20 06/06/20 18:59 06:59 18:59 Intake Total 0890.217 2659.760 498.07 Output Total 2805 805 370 Balance -1151.525 907.760 128.07 Weight 202.6 kg 204.253 kg Intake: IV 966 716 235 0.9 pressure bag 66 66 30 Piperacillin-Tazobactam 3 100 100 75 .375 gm In Sodium Chloride 0.9% 100 ml @ 25 mls/hr IVPB Q12HR [facility] Rx #:[id number] Sodium Chloride 0.9% 1, 800 550 130 000 ml @ 50 mls/hr IV . Q20H [facility] Rx#:[id number] Intake, IV Titration 537.475 476.760 193.07 Amount Norepinephrine 32 mg In 79.076 Sodium Chloride 0.9% 218 ml @ 0.05 MCG/KG/MIN 4. 784 mls/hr IV .Q24H [facility] Rx#:[id number] propofoL 1,000 mg In 458.399 476.760 193.07 Empty Bag 1 bag @ Titrate IV .Q0M [facility] Rx#: [id number] Tube Feeding 120 430 40 Other 30 90 30 Output: Chest Tube Drainage 1550 Left Upper Anterior Chest 1550 Gastric Drainage 100 Urine 1155 805 370 Other: Voiding Method Indwelling Catheter Indwelling Catheter Indwelling Catheter ABP, PAP, CO, CI - Last Documented Arterial Blood Pressure 123/54 - Exam Gen. appearance the patient is morbidly obese with a BMI of 74.7., Comfortable not in distress. Was sedated intubated on a mechanical ventilator. She has an orotracheal and orogastric tube are both in place. Head exam was generally normal. There was no scleral icterus or corneal arcus. Mucous membranes were moist. Neck was supple and without jugular venous distension, thyromegaly, or carotid bruits. Carotids were easily palpable bilaterally. There was no adenopathy. The patient has a left IJ triple-lumen catheter in place. Lungs sounds are diminished in the left compared to the right. The patient has a fluoroscopy vent inserted over the anterior aspect of the left chest lateral to the sternal border at the level of the second and the third intercostal space. Cardiac exam revealed the PMI to be normally situated and sized. The rhythm was regular and no extrasystoles were noted during several minutes of auscultation. The first and second heart sounds were normal and physiologic splitting of the second heart sound was noted. There were no murmurs, rubs, clicks, or gallops. Abdomen is obese soft nontender. Organs cannot be palpated as the patient is morbidly obese. Extremities revealed +1 pitting edema and there is no cyanosis or clubbing. neurologically the patient is sedated, comfortable no acute distress. - Labs CBC & Chem 7: 06/06/20 04:30 06/06/20 04:30 Labs: Abnormal Lab Results - Last 24 Hours (Table) 06/05/20 06/06/20 06/06/20 Range/Units 18:26 00:09 01:15 WBC (3.8-10.6) k/uL RBC (3.80-5.40) m/uL Hgb (11.4-16.0) gm/dL Hct (34.0-46.0) % MCHC (31.0-37.0) g/dL RDW (11.5-15.5) % Plt Count (150-450) k/uL Neutrophils # (1.3-7.7) k/uL Lymphocytes # (1.0-4.8) k/uL ABG pH (7.35-7.45) ABG pO2 (83-108) mmHg ABG HCO3 (21-25) mmol/L ABG Total CO2 (19-24) mmol/L ABG O2 Saturation (94-97) % BUN (7-17) mg/dL Creatinine (0.52-1.04) mg/dL Glucose (74-99) mg/dL POC Glucose (mg/dL) 102 H 110 H 111 H (75-99) mg/dL 06/06/20 06/06/20 06/06/20 Range/Units 04:30 04:30 05:11 WBC 11.2 H (3.8-10.6) k/uL RBC 2.72 L (3.80-5.40) m/uL Hgb 7.4 L (11.4-16.0) gm/dL Hct 26.0 L (34.0-46.0) % MCHC 28.5 L (31.0-37.0) g/dL RDW 19.6 H (11.5-15.5) % Plt Count 139 L (150-450) k/uL Neutrophils # 9.6 H (1.3-7.7) k/uL Lymphocytes # 0.9 L (1.0-4.8) k/uL ABG pH (7.35-7.45) ABG pO2 (83-108) mmHg ABG HCO3 (21-25) mmol/L ABG Total CO2 (19-24) mmol/L ABG O2 Saturation (94-97) % BUN 91 H (7-17) mg/dL Creatinine 3.48 H (0.52-1.04) mg/dL Glucose 113 H (74-99) mg/dL POC Glucose (mg/dL) 132 H (75-99) mg/dL 06/06/20 06/06/20 06/06/20 Range/Units 05:15 07:53 11:48 WBC (3.8-10.6) k/uL RBC (3.80-5.40) m/uL Hgb (11.4-16.0) gm/dL Hct (34.0-46.0) % MCHC (31.0-37.0) g/dL RDW (11.5-15.5) % Plt Count (150-450) k/uL Neutrophils # (1.3-7.7) k/uL Lymphocytes # (1.0-4.8) k/uL ABG pH 7.47 H (7.35-7.45) ABG pO2 242 H (83-108) mmHg ABG HCO3 26 H (21-25) mmol/L ABG Total CO2 27 H (19-24) mmol/L ABG O2 Saturation 100.0 H (94-97) % BUN (7-17) mg/dL Creatinine (0.52-1.04) mg/dL Glucose (74-99) mg/dL POC Glucose (mg/dL) 118 H 117 H (75-99) mg/dL Microbiology - Last 24 Hours (Table) 06/04/20 18:57 Gram Stain - Preliminary Pleural Fluid Body Fluid Culture - Preliminary 06/02/20 14:23 Blood Culture - Preliminary Blood No Growth after 72 hours Assessment and Plan Plan: 1 acute hypoxic respiratory failure post thoracentesis. The patient had a complete opacification of the left lung due to a combination of atelectasis and effusion. The patient is currently intubated on a mechanical ventilator. The patient has had a Thoravent inserted to the left lung with evacuation of at least 1.3 L of pleural fluid and the fluid seems to be transudate at this point in time. Fluid cytology still pending for now. A second Thoravent was inserted following the dislodgment of the initial catheter. Since a second catheter was inserted, another 7 50 mL of pleural fluid was aspirated from the patient's left lung. There is some improved aeration of the left upper lobe. The current ca theter is in a good location. Awaiting fluid triglyceride. Awaiting fluid cytology. 2 hypotension, consider pneumonia of the left lower lobe, consider septic shock. The patient is currently on low-dose norepinephrine infusion for blood pressure support. 3 morbid obesity with a BMI of 74.2 4 chronic hypoxic respiratory failure currently on 2 L of oxygen by nasal cannula 5 Chronic kidney disease stage IV secondary to nephrosclerosis with some worsening, currently receiving diuretics per nephrology's consultation. 6 Chronic gastritis finding any recent EGD 7 vaginal bleeding.-Intermittent 8 Chronic congestive heart failure from diastolic dysfunction EF 55-60% 9 Morbid obesity BMI 34.2 10 renal bone disease 11 Anemia of chronic kidney disease 12 Persistent atrial fibrillation, rate controlled 13 Nonalcoholic fatty liver disease 14 COPD in an ex-smoker 15 Primary osteoarthritis 16 Obstructive sleep apnea 17 Chronic gout 18 Chronic hypoxic respiratory failure from COPD 19 Chronic medical debility and a baseline patient does use a lift to a wheelchair Plan Continue vent support Sedation holiday Assessment weaning parameters Possible exhibition of the patient shows adequate weaning parameters and adequate recovery from sedation The Thoravent has been replaced Monitor the output from the chest Awaiting pleural fluid cytology and cultures, in addition to pleural fluid triglyceride Continue enteral feeding for nutritional support Continue Zosyn Wean off norepinephrine Condition is critical we'll continue to follow and will make further accommodations based on her progress. This evaluation was done and more than 30 minutes and the family has been updated on her condition. Time with Patient: Greater than 30
--- NOTE | 2020-06-06 12:43 | XR ---
EXAMINATION TYPE: XR chest 1V portable DATE OF EXAM: 06/06/2020 CLINICAL HISTORY: Tube placement TECHNIQUE: Semiupright portable view of the chest obtained COMPARISON: 06/05/2020 chest radiograph at 9:25 AM FINDINGS: Chest tube overlies the lateral margin of the left hemithorax. Endotracheal tube at the le samuel of the clavicular heads. Enteric tube nonvisualization of distal tip, however side port overlies the projected area of the stomach. Left internal jugular central venous catheter distal tip over the cavoatrial junction versus right atrium. Opacification of the left basilar hemithorax, with mildly im proved aeration of the left upper lung. Right pulmonary vascular congestion and small right pleural e ffusion. IMPRESSION: 1. Left-sided chest tube distal tip again overlies the lateral margin of the left hemithorax. Additio nal tubes and lines unchanged. 2. Opacification of the left basilar hemithorax, with mildly improved aeration of the left upper lung versus 06/05/2020. 3. Pulmonary vascular congestion and small right pleural effusion appear similar.
[2020-06-06] MEDS: FOLIC ACID 1 MG TAB PO SCH (13:21)
[2020-06-06] MEDS: ASPIRIN 81 MG PO SCH (13:21)
--- NOTE | 2020-06-06 14:20 | P.PN ---
Progress Note - Text Progress Note Date: 06/06/20 Chief Complaint: Fluid overload History of presenting complaint: This is a pleasant 70-year-old patient was chronic stable medical conditions include CHF EF 55 and 55%, morbid obesity, chronic kidney disease stage IV secondary to nephrosclerosis, renal bone disease, anemia of chronic kidney disease, persistent atrial fibrillation, fatty liver, COPD, primary osteoarthritis, obstructive sleep apnea, chronic gout, on home oxygen, chronic medical debility at her baseline uses a lift a wheelchair. Patient is a resident at [facility]. Patient presents with increasing swelling about a week. Increase in shortness of breath. Appetite is okay. Bowel movements are okay. No fever no chills. Started on IV Lasix. Admitted with CHF exacerbation. Put on IV Lasix. On June 04 -was taken to for thoracentesis and it was a bit difficult by IR. Patient went into PEA cardiac arrest. intubated. Hypotensive. Moved to ICU. Thora-vent was placed. About 850 mL of pus-bloody fluid was obtained. [id number]. On the ventilator. Telemetry shows sinus rhythm. Left chest tube to suction. On IV levo fed and propofol. Tube feeding. Granddaughter at the bedside. Review of systems: Patient intubated Active Medications Acetaminophen (Tylenol Tab) 650 mg PO Q4H PRN PRN Reason: Pain or Fever > 100.5 Acetaminophen/Codeine Phosphate (Tylenol #3) 1 each PO TID PRN PRN Reason: Pain Last Admin: 06/04/20 01:23 Dose: 1 each Documented by: Albuterol/Ipratropium (Duoneb 0.5 Mg-3 Mg/3 Ml Soln) 3 ml INHALATION RT-QID [facility] Last Admin: 06/06/20 12:03 Dose: 3 ml Documented by: Allopurinol (Zyloprim) 100 mg PO DAILY@0800 [facility] Last Admin: 06/06/20 10:48 Dose: 100 mg Documented by: Aspirin (Aspirin) 81 mg PO DAILY@1200 [facility] Last Admin: 06/06/20 13:21 Dose: 81 mg Documented by: Atorvastatin Calcium (Lipitor) 40 mg PO HS@2100 [facility] Last Admin: 06/05/20 20:36 Dose: 40 mg Documented by: Bisacodyl (Dulcolax) 10 mg RECTAL DAILY PRN PRN Reason: Constipation Last Admin: 06/03/20 10:28 Dose: 10 mg Documented by: Calcitriol (Rocaltrol) 0.25 mcg PO DAILY@1700 [facility] Last Admin: 06/05/20 18:54 Dose: 0.25 mcg Documented by: Calcium Acetate (Phoslo) 667 mg PO DAILY@0800 [facility] Last Admin: 06/06/20 10:52 Dose: 667 mg Documented by: Chlorhexidine Gluconate (Peridex) 15 ml MUCOUS MEM BID [facility] Last Admin: 06/06/20 10:48 Dose: 15 ml Documented by: Cholecalciferol (Vitamin D3 (25 Mcg = 1000 Iu)) 2,000 unit PO DAILY@1700 [facility] Last Admin: 06/05/20 17:24 Dose: 2,000 unit Documented by: Darbepoetin Juan Jose (Aranesp) 60 mcg SQ TH [facility] Last Admin: 06/03/20 15:58 Dose: 60 mcg Documented by: Folic Acid (Folic Acid) 1 mg PO DAILY@1200 [facility] Last Admin: 06/06/20 13:21 Dose: 1 mg Documented by: Propofol 1,000 mg/ IV Solution 100 mls @ 0 mls/hr IV .Q0M [facility]; Protocol Last Titration: 06/06/20 09:25 Dose: 0 mcg/kg/min, 0 mls/hr Documented by: Norepinephrine Bitartrate 32 (mg/ Sodium Chloride) 250 mls @ 4.784 mls/hr IV .Q24H [facility]; Protocol Last Admin: 06/06/20 05:15 Dose: Not Given Documented by: Piperacillin Sod/Tazobactam (Sod 3.375 gm/ Sodium Chloride) 100 mls @ 25 mls/hr IVPB Q12HR [facility] Last Admin: 06/06/20 09:00 Dose: 25 mls/hr Documented by: Insulin Aspart (Novolog) 0 unit SQ Q6H [facility]; Protocol Last Admin: 06/06/20 13:20 Dose: Not Given Documented by: Lactulose (Cephulac) 10 gm PO BID PRN PRN Reason: Constipation Loratadine (Claritin) 10 mg PO Q48H PRN PRN Reason: Allergy Symptoms Magnesium Hydroxide (Milk Of Magnesia) 2,400 mg PO DAILY PRN PRN Reason: Constipation Metoprolol Tartrate (Lopressor) 25 mg PO BID@0800,1700 [facility] Last Admin: 06/06/20 10:51 Dose: 25 mg Documented by: Midodrine (Proamatine) 5 mg PO AC-TID [facility] Last Admin: 06/06/20 14:01 Dose: 5 mg Documented by: Non-Formulary Medication (Linaclotide [Linzess]) 145 mcg PO DAILY@0800 [facility] Last Admin: 06/06/20 09:05 Dose: Not Given Documented by: Ondansetron HCl (Zofran) 4 mg IVP Q6HR PRN PRN Reason: Nausea And Vomiting Last Admin: 06/04/20 05:36 Dose: 4 mg Documented by: Senna (Senokot) 8.6 - 17.2 mg PO HS PRN PRN Reason: Constipation Last Admin: 06/03/20 10:28 Dose: 17.2 mg Documented by: Triamcinolone Acetonide (Kenalog) 1 applic TOPICAL BID [facility] Last Admin: 06/06/20 11:01 Dose: 1 applic Documented by: Physical examination: VITAL SIGNS: 98.3, 87, 28, 134/73, 100% on the ventilator GENERAL: Laying in bed, intubated EYES: Pupils equal. Conjunctiva normal. HEENT: External appearance of nose and ears normal, oral cavity-endotracheal tube NECK: JVD unable to assess masses not palpable. HEART: First and second heart sounds are normal; no edema. LUNGS: Respiratory rate increased, distant breath [id number] chest tube ABDOMEN: Soft, nontender, liver spleen not palpable, no masses palpable. PSYCH: Sedated MUSCULAR skeletal: [place] INVESTIGATIONS, reviewed in the clinical context: White count 11.2 hemoglobin 7.4 platelets 139 potassium 3.9 bun 91 creatinine 3.48 Chest x-ray near-complete or basophilic dictation of the left hemithorax with chest tube Previous testing White count 9.3 hemoglobin 7.9 potassium 4.9 bun 90 creatinine 2.6 to. Repeat potassium this morning was 6 EKG tracing personally reviewed by me shows atrial fibrillation rate of 60s Chest x-ray film personally reviewed by me-near whiteout on the left side Assessment: - -Acute on Chronic congestive heart failure from diastolic dysfunction EF 55-60% -Left pleural effusion 8 50 mL of fluid evacuated with Thora-vent now with the chest tube-slow to respond -Chronic kidney disease stage IV secondary to nephrosclerosis with some worsening -Morbid obesity BMI 75.2 -Chronic kidney disease renal bone disease -Anemia of chronic kidney disease -Persistent atrial fibrillation, rate controlled Nonalcoholic fatty liver disease -COPD in an ex-smoker -Primary osteoarthritis -Obstructive sleep apnea -Chronic gout -Chronic hypoxic respiratory failure from COPD -Chronic medical debility and a baseline patient does use a lift to a wheelchair -Thoracentesis with the Thora-vent in place -Acute hypoxic, hypercapnic respiratory failure-requiring ventilator support- slow to respond -Hypotensive shock requiring pressor support Plan: remains on the ventilator, on propofol at levo fed. Antibodies include IV Zosyn. Other medications to continue. Prognosis guarded. Discussed with the granddaughter at the bedside.
[2020-06-06] MEDS: CHOLECALCIFEROL 1,000 UNIT TAB PO SCH (16:54)
[2020-06-06 17:55] LABS: Glucose,Whole Blood 108 mg/dL (75-99)
[2020-06-06] MEDS: ATORVASTATIN 40 MG TAB PO SCH (21:35)
[2020-06-06 23:41] LABS: Glucose,Whole Blood 122 mg/dL (75-99)
[2020-06-07] MEDS: INSULIN ASPART (NovoLOG) 100 UNIT/ML VIAL SQ SCH ×4 (00:09→17:51)
--- NOTE | 2020-06-07 01:11 | XR ---
EXAMINATION TYPE: XR chest 1V portable DATE OF EXAM: 06/07/2020 COMPARISON: Yesterday HISTORY: Check tube placement Chest tube. TECHNIQUE: Single view FINDINGS: Endotracheal tube is 2.5 cm from the michell. There is left mid lung field chest tube that a ppears to be in good position. I see no definite pneumothorax. Nasogastric tube is in the stomach. Th ere is patchy pulmonary edema. There are chest leads. IMPRESSION: Patchy pulmonary edema unchanged and consistent with congestive heart failure. Left side chest tube in good position unchanged. Left pleural effusion probably improved compared to yesterday.
[2020-06-07 04:25] LABS: ABG Base Excess 2.7 mmol/L; ABG HCO3 26 mmol/L (21-25); ABG PCO2 36 mmHg (35-45); ABG PH 7.47 (7.35-7.45); ABG PO2 164 mmHg (83-108); ABG TCO2 27 mmol/L (19-24)
[2020-06-07 04:31] LABS: Anisocytosis Slight; Basophils % (A) 0 %; Eosinophils # (A) 0.2 k/uL (0-0.7); Eosinophils % (A) 2 %; HCT 23.8 % (34.0-46.0); Hypochromasia Marked; Lymphocytes # (A) 0.9 k/uL (1.0-4.8); Lymphocytes % (A) 8 %; MCH 26.8 pg (25.0-35.0); MCHC 28.3 g/dL (31.0-37.0); MCV 94.7 fL (80.0-100.0); Macrocytosis Slight; Mean Platelet Volume 9.6; Monocytes % (A) 9 %; Neutrophils # (A) 8.7 k/uL (1.3-7.7); Neutrophils % (A) 80 %; Platelet Count 114 k/uL (150-450); Poikilocytosis Slight; RBC 2.51 m/uL (3.80-5.40); RDW 19.6 % (11.5-15.5)
[2020-06-07 04:39] LABS: Calcium 8.3 mg/dL (8.4-10.2); Potassium 3.8 mmol/L (3.5-5.1)
[2020-06-07 04:40] LABS: HGB 6.7 gm/dL (11.4-16.0)
[2020-06-07 04:58] LABS: Glucose,Whole Blood 127 mg/dL (75-99)
[2020-06-07 05:01] LABS: Allen Test Performed? no
[2020-06-07] MEDS: MIDODRINE 5 MG TAB PO SCH ×3 (06:49→17:19)
[2020-06-07] MEDS: IPRATROPIUM-ALBUTEROL 3 ML NEB INHALATION SCH ×4 (08:01→20:43)
[2020-06-07] MEDS: NON FORMULARY DRUG (Linaclotide [Linzess] 145 MCG) PO SCH (08:20)
[2020-06-07] MEDS: CALCIUM ACETATE 667 MG TAB PO SCH (08:25)
[2020-06-07] MEDS: METOPROLOL TARTRATE 25 MG TAB PO SCH ×2 (08:25→17:19)
[2020-06-07] MEDS: CHLORHEXIDINE GLUCONATE 15 ML CUP MUCOUS MEM SCH ×2 (08:26→21:46)
[2020-06-07] MEDS: PIPERACILLIN-TAZOBACTAM 3.375 GM in SODIUM CHLORIDE 0.9% 100 ML IVPB SCH ×2 (08:26→21:46)
[2020-06-07] MEDS: allopurinoL 100 MG TAB PO SCH (08:26)
[2020-06-07] MEDS: TRIAMCINOLONE 0.1% CREAM 80 GM TUBE TOPICAL SCH ×2 (08:37→21:47)
--- NOTE | 2020-06-07 09:31 | XR ---
EXAMINATION TYPE: XR chest 1V portable DATE OF EXAM: 06/07/2020 CLINICAL HISTORY: Tube placement. Left-sided Thora vent. TECHNIQUE: Portable semiupright view of the chest obtained. COMPARISON: 06/07/2020 12:34 AM chest radiograph. FINDINGS: Endotracheal tube distal tip 3.4 cm from the michell. Enteric tube with nonvisualization of the distal tip. Left-sided internal jugular central venous catheter distal tip over the cavoatrial j unction versus right atrium. Left-sided Thora vent distal tip now lies lateral to the left rib cage. Patchy pulmonary edema. Left pleural effusion. Similar small right pleural effusion. No pneumothorax, although left apex obscured by overlying neck soft tissue. IMPRESSION: 1. Left Thora vent and distal tip now lies lateral to the left hemithorax, likely displaced. 2. Pulmonary edema and bilateral pleural effusions appear similar to comparison at 12:[address] Dasha eMdeiros discussed findings with Ricarda Pantoja RN via the phone on 06/07/2020 at 9:27 AM, a nd results were acknowledged.
--- NOTE | 2020-06-07 09:41 | P.PN ---
Subjective Patient is seen in follow-up for acute kidney injury on chronic kidney disease. Renal function stable. Urine output 50-100 mL an hour. Patient had PEA arrest on June 04 and received 1 dose of epinephrine. She is intubated and sedated. Noted to have pneumothorax and has a thoravent in place. She is receiving tube feeding. Remains on Levophed. hemoglobin 6.7. She's currently receiving a unit of blood. Vital signs are stable. Currently on Levophed. General: The patient appeared well nourished and normally developed. HEENT: Head exam is unremarkable. Neck is without jugular venous distension. Intubated. LUNGS: Breath sounds decreased. HEART: Regular rhythm. ABDOMEN: Soft, nontender. Obese. EXTREMITITES: 1+ edema. Chronic changes noted. Objective - Vital Signs Vital signs: Vital Signs Temp 97.6 F 06/07/20 08:00 Pulse 76 06/07/20 09:15 Resp 28 H 06/07/20 09:15 BP 102/44 06/07/20 07:09 Pulse Ox 100 06/07/20 09:15 Intake & Output 06/06/20 06/07/20 06/07/20 18:59 06:59 18:59 Intake Total 1145.693 534.654 51.689 Output Total 1200 835 150 Balance -54.307 -300.346 -98.311 Weight 205.2 kg Intake: IV 388 331 36 0.9 pressure bag 78 66 6 Piperacillin-Tazobactam 3 100 100 .375 gm In Sodium Chloride 0.9% 100 ml @ 25 mls/hr IVPB Q12HR [facility] Rx #:[id number] Sodium Chloride 0.9% 1, 210 165 30 000 ml @ 50 mls/hr IV . Q20H [facility] Rx#:[id number] Intake, IV Titration 257.693 203.654 15.689 Amount Norepinephrine 32 mg In 64.623 40.662 15.689 Sodium Chloride 0.9% 218 ml @ 0.05 MCG/KG/MIN 4. 784 mls/hr IV .Q24H [facility] Rx#:[id number] propofoL 1,000 mg In 193.07 162.992 Empty Bag 1 bag @ Titrate IV .Q0M [facility] Rx#: [id number] Tube Feeding 410 Blood Product 0 Rc As-1 Unit 0 [id number] Other 90 Output: Chest Tube Drainage 0 Left Upper Anterior Chest 0 Urine 1200 835 150 Other: Voiding Method Indwelling Catheter Indwelling Catheter ABP, PAP, CO, CI - Last Documented Arterial Blood Pressure 126/59 - Labs CBC & Chem 7: 06/07/20 04:25 06/07/20 04:25 Labs: Abnormal Lab Results - Last 24 Hours (Table) 06/06/20 06/06/20 06/06/20 Range/Units 11:48 17:54 23:40 WBC (3.8-10.6) k/uL RBC (3.80-5.40) m/uL Hgb (11.4-16.0) gm/dL Hct (34.0-46.0) % MCHC (31.0-37.0) g/dL RDW (11.5-15.5) % Plt Count (150-450) k/uL Neutrophils # (1.3-7.7) k/uL Lymphocytes # (1.0-4.8) k/uL ABG pH (7.35-7.45) ABG pO2 (83-108) mmHg ABG HCO3 (21-25) mmol/L ABG Total CO2 (19-24) mmol/L ABG O2 Saturation (94-97) % BUN (7-17) mg/dL Creatinine (0.52-1.04) mg/dL Glucose (74-99) mg/dL POC Glucose (mg/dL) 117 H 108 H 122 H (75-99) mg/dL Calcium (8.4-10.2) mg/dL Crossmatch 06/07/20 06/07/20 06/07/20 Range/Units 04:25 04:25 04:25 WBC 11.0 H (3.8-10.6) k/uL RBC 2.51 L (3.80-5.40) m/uL Hgb 6.7 L* (11.4-16.0) gm/dL Hct 23.8 L (34.0-46.0) % MCHC 28.3 L (31.0-37.0) g/dL RDW 19.6 H (11.5-15.5) % Plt Count 114 L (150-450) k/uL Neutrophils # 8.7 H (1.3-7.7) k/uL Lymphocytes # 0.9 L (1.0-4.8) k/uL ABG pH 7.47 H (7.35-7.45) ABG pO2 164 H (83-108) mmHg ABG HCO3 26 H (21-25) mmol/L ABG Total CO2 27 H (19-24) mmol/L ABG O2 Saturation 100.0 H (94-97) % BUN 94 H (7-17) mg/dL Creatinine 3.34 H (0.52-1.04) mg/dL Glucose 114 H (74-99) mg/dL POC Glucose (mg/dL) (75-99) mg/dL Calcium 8.3 L (8.4-10.2) mg/dL Crossmatch 06/07/20 06/07/20 Range/Units 04:56 05:00 WBC (3.8-10.6) k/uL RBC (3.80-5.40) m/uL Hgb (11.4-16.0) gm/dL Hct (34.0-46.0) % MCHC (31.0-37.0) g/dL RDW (11.5-15.5) % Plt Count (150-450) k/uL Neutrophils # (1.3-7.7) k/uL Lymphocytes # (1.0-4.8) k/uL ABG pH (7.35-7.45) ABG pO2 (83-108) mmHg ABG HCO3 (21-25) mmol/L ABG Total CO2 (19-24) mmol/L ABG O2 Saturation (94-97) % BUN (7-17) mg/dL Creatinine (0.52-1.04) mg/dL Glucose (74-99) mg/dL POC Glucose (mg/dL) 127 H (75-99) mg/dL Calcium (8.4-10.2) mg/dL Crossmatch See Detail Microbiology - Last 24 Hours (Table) 06/04/20 18:57 Gram Stain - Preliminary Pleural Fluid Body Fluid Culture - Preliminary 06/02/20 14:23 Blood Culture - Preliminary Blood No Growth after 96 hours Assessment and Plan Plan: Assessment: 1. Acute kidney injury secondary to ATN secondary to cardiac arrest/hemodynamic instability. Creatinine stable at 3.34. 2. Chronic kidney disease stage IV with baseline creatinine 2.7-3 secondary to nephrosclerosis. 3. Acute on chronic diastolic CHF. 4. Status post PEA arrest on June 04. 5. Anemia of chronic kidney disease maintained on Aranesp. Receiving a unit of blood today. 6. Chronic kidney disease mineral bone disease maintained on calcitriol and PhosLo. 7. Shock possibly septic from pneumonia maintained on Levophed. 8. Pneumothorax status post Thora-Vent placement. Plan: Start Lasix 40 mg IV once daily. Follow-up cultures. Continue to monitor renal function and urine output. Weaf FiO2.
[2020-06-07] MEDS: FUROSEMIDE 10 MG/ML 4 ML VIAL IV SCH (10:28)
[2020-06-07 11:33] LABS: Glucose,Whole Blood 135 mg/dL (75-99)
[2020-06-07] MEDS: FOLIC ACID 1 MG TAB PO SCH (11:36)
[2020-06-07] MEDS: ASPIRIN 81 MG PO SCH (11:36)
--- NOTE | 2020-06-07 14:36 | P.PN ---
Subjective Progress Note Date: 06/07/20 Principal diagnosis: Acute hypoxic respiratory failure and left lower lobe pneumonia, with pleural effusion. 70-year-old female patient, retirement resident who was referred back to the emergency department because of worsening shortness of breath and hypoxemia. The patient had significant amount of weight gain in the order of 11 pounds over this past week. She also reported worsening lower extremity edema. She was unable to ambulate. She is currently bedbound. She is morbidly obese with a BMI of 34.2. No fever no chills. No aspiration. She has a mild cough. No c hest pain. The chest x-rays showing complete opacification of the left lung without any significant shift of the trachea or volume loss. The left mainstem bronchus is currently off. White cell count 9.3 with hemoglobin of 7.9. Coagulation profile is within normal. 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 Serum bicarb is 29 with a sodium of 138. The liver functions is on essentially within normal limits. Albumin is at 3.3 with a total protein of 6.9. ProBNP level was 11,300. Currently, the patient is on 2 L of oxygen by nasal cannula. Pulse ox and order of 97%. Long with stage IV kidney disease secondary to do hypertensive nephrosclerosis. She also has chronic anemia, chronic proximal atrial fibrillation, COPD, osteoarthritis, obstructive sleep apnea, gout and she Zyvox and dependent and she has home O2. She is medically debilitated and she is a left and a walker. [facility] During her most recent hospitalization, the anemia was further worked up by EGD EGD showed mild gastritis. There was mild duodenitis. There was a small hiatal hernia. 06/06/2020, the patient remains intubated on a mechanical ventilator. The patient is currently sedated with propofol running at 40 g per KG per minute. The patient is requiring low-dose norepinephrine infusion for blood pressure sup port and this is running at 0.0 mg per KG per minute. The patient is receiving enteral feeding with vital high protein at the rate of 50 mL an hour. The patient has a fluoroscopy vent on the left lung. A total of 700 mL of fluid was aspirated yesterday. The fluid is a bit bloody and creamy and esophagus and there is a possibility of a chylothorax. The initial analysis came back as a transudate with a low LDH and low protein. The fluid triglycerides still pending for now. Meanwhile, the patient had a follow-up chest x-ray today that showed that the Thoravent is adequate location. There is some improved aeration left upper lobe. His volume loss in the left lung along with some ongoing consolidation of left lower lobe. The ET tube is in a good location. The patient has some cardiomegaly. The patient is currently on assist control mode of ventilation. The patient is on a assist-control of 20 with a rate of 20 and a tidal volume of 400 and FiO2 of 50% and a PEEP of 5. The pH is at 7.47 with a pCO2 of 35 and pO2 of 232. The patient's peak air pressure is around 30 to anesthetic pressures somewhat elevated this is secondary and this is secondary to extrapulmonary restriction with elevation of the anesthetic pressures. Adequate urine output. Lasix was given by nephrology to dose of 40 mg 1. There is some edema lower extremities. Fluid cytology from the left lung is still pending for now. On 06/07/20, patient remains in the ICU, intubated and mechanically ventilated. She is on assist control rate of 28, FiO2 is 40%, tidal volume is 400 and PEEP of 5. ABG showed a pO2 of 164 pCO2 of 36 and pH of 7.47. Patient remains sedated, on propofol at 20 mcg/kg/m, she is also on norepinephrine at 0.02 mcg/kg/m. Ventilator settings were changed to assist control rate of 24 and FiO2 was decreased down to 35%. Patient is in atrial fibrillation however her rate seems to be well-controlled. Continues to have a left sided chest tube/thoravent in place. Continues to have significant consolidation of the left lower lobe. Patient is now draining significantly yellow fluid possible chylothorax noted, triglycerides were ordered on the fluid. She also received a unit of packed RBCs today for hemoglobin of 6.7. That triglycerides level on the pleural effusion is pending. Objective - Vital Signs Vital signs: Vital Signs Temp 97.6 F 06/07/20 12:00 Pulse 70 06/07/20 14:00 Resp 24 06/07/20 14:00 BP 119/52 06/07/20 10:15 Pulse Ox 100 06/07/20 14:00 Intake & Output 06/06/20 06/07/20 06/07/20 18:59 06:59 18:59 Intake Total 1145.693 175.883 2594.689 Output Total 1200 835 725 Balance -54.307 -300.346 406.689 Weight 205.2 kg 205.2 kg Intake: IV 388 331 241 0.9 pressure bag 78 66 36 Piperacillin-Tazobactam 3 100 100 100 .375 gm In Sodium Chloride 0.9% 100 ml @ 25 mls/hr IVPB Q12HR [facility] Rx #:[id number] Sodium Chloride 0.9% 1, 210 165 105 000 ml @ 50 mls/hr IV . Q20H [facility] Rx#:[id number] Intake, IV Titration 257.693 203.654 115.689 Amount Norepinephrine 32 mg In 64.623 40.662 15.689 Sodium Chloride 0.9% 218 ml @ 0.05 MCG/KG/MIN 4. 784 mls/hr IV .Q24H [facility] Rx#:[id number] propofoL 1,000 mg In 193.07 162.992 100.000 Empty Bag 1 bag @ Titrate IV .Q0M [facility] Rx#: [id number] Tube Feeding 410 390 Blood Product 0 310 Rc As-1 Unit 0 310 [id number] Other 90 75 Output: Chest Tube Drainage 0 Left Upper Anterior Chest 0 Urine 1200 835 725 Other: Voiding Method Indwelling Catheter Indwelling Catheter Indwelling Catheter ABP, PAP, CO, CI - Last Documented Arterial Blood Pressure 128/55 - Exam Very pleasant 70-year-old female patient, morbidly obesity BMI of 75.2 on mechanical ventilation. Head exam atraumatic, normocephalic. Endotracheal tube and orogastric tubes are intact. Neck was supple and without jugular venous distension, thyromegaly, or carotid bruits. Carotids were easily palpable bilaterally. Cardiac exam distant S1 and S2, no S3 gallop, no murmur could be appreciated. Lungs symmetrical chest expansion, diminished breath sounds on the left side, left sided thoravent is noted. Abdominal exam revealed morbidly obese, nontender, no megaly, no rebound Examination of the extremities revealed bipedal edema, diminished distal pulses bilaterally. Examination of the skin revealed no evidence of significant rashes, Neurologically, could not be assessed. Patient is not responding to any painful or verbal stimuli. On propofol Psychiatric could not be assessed. - Labs CBC & Chem 7: 06/07/20 04:25 06/07/20 04:25 Labs: Abnormal Lab Results - Last 24 Hours (Table) 06/06/20 06/06/20 06/06/20 Range/Units 09:36 17:54 23:40 WBC (3.8-10.6) k/uL RBC (3.80-5.40) m/uL Hgb (11.4-16.0) gm/dL Hct (34.0-46.0) % MCHC (31.0-37.0) g/dL RDW (11.5-15.5) % Plt Count (150-450) k/uL Neutrophils # (1.3-7.7) k/uL Lymphocytes # (1.0-4.8) k/uL ABG pH (7.35-7.45) ABG pO2 (83-108) mmHg ABG HCO3 (21-25) mmol/L ABG Total CO2 (19-24) mmol/L ABG O2 Saturation (94-97) % BUN (7-17) mg/dL Creatinine (0.52-1.04) mg/dL Glucose (74-99) mg/dL POC Glucose (mg/dL) 108 H 122 H (75-99) mg/dL Calcium (8.4-10.2) mg/dL Procalcitonin 0.57 H (0.02-0.09) ng/mL Crossmatch 06/07/20 06/07/20 06/07/20 Range/Units 04:25 04:25 04:25 WBC 11.0 H (3.8-10.6) k/uL RBC 2.51 L (3.80-5.40) m/uL Hgb 6.7 L* (11.4-16.0) gm/dL Hct 23.8 L (34.0-46.0) % MCHC 28.3 L (31.0-37.0) g/dL RDW 19.6 H (11.5-15.5) % Plt Count 114 L (150-450) k/uL Neutrophils # 8.7 H (1.3-7.7) k/uL Lymphocytes # 0.9 L (1.0-4.8) k/uL ABG pH 7.47 H (7.35-7.45) ABG pO2 164 H (83-108) mmHg ABG HCO3 26 H (21-25) mmol/L ABG Total CO2 27 H (19-24) mmol/L ABG O2 Saturation 100.0 H (94-97) % BUN 94 H (7-17) mg/dL Creatinine 3.34 H (0.52-1.04) mg/dL Glucose 114 H (74-99) mg/dL POC Glucose (mg/dL) (75-99) mg/dL Calcium 8.3 L (8.4-10.2) mg/dL Procalcitonin (0.02-0.09) ng/mL Crossmatch 06/07/20 06/07/20 06/07/20 Range/Units 04:56 05:00 11:31 WBC (3.8-10.6) k/uL RBC (3.80-5.40) m/uL Hgb (11.4-16.0) gm/dL Hct (34.0-46.0) % MCHC (31.0-37.0) g/dL RDW (11.5-15.5) % Plt Count (150-450) k/uL Neutrophils # (1.3-7.7) k/uL Lymphocytes # (1.0-4.8) k/uL ABG pH (7.35-7.45) ABG pO2 (83-108) mmHg ABG HCO3 (21-25) mmol/L ABG Total CO2 (19-24) mmol/L ABG O2 Saturation (94-97) % BUN (7-17) mg/dL Creatinine (0.52-1.04) mg/dL Glucose (74-99) mg/dL POC Glucose (mg/dL) 127 H 135 H (75-99) mg/dL Calcium (8.4-10.2) mg/dL Procalcitonin (0.02-0.09) ng/mL Crossmatch See Detail Microbiology - Last 24 Hours (Table) 06/04/20 18:57 Gram Stain - Preliminary Pleural Fluid Body Fluid Culture - Preliminary 06/02/20 14:23 Blood Culture - Preliminary Blood No Growth after 96 hours Assessment and Plan Assessment: Impression: Acute on chronic hypoxic respiratory failure, presented with complete opacification of the left lung and large left-sided pleural effusion, transudative in nature, however the color of the fluid today is suspicious for possible chylothorax. Triglycerides on the fluid are pending. Cytology on the fluid is pending. Acute left lower lobe pneumonia and possible septic shock on presentation. Morbid obesity with BMI of 74.2. Chronic hypoxic respiratory failure, normally on 2 L nasal cannula. Chronic kidney disease stage IV Chronic gastritis. Chronic diastolic congestive heart failure. Anemia of chronic kidney disease. Nonalcoholic fatty liver disease. COPD, ex-smoker. Presently inactive. Medical debility, patient is bed bound Chronic gout. Obstructive sleep apnea syndrome. Recommendation: Continue ventilatory support. Continue sedation holidays. Awaiting final report on the fluid including report on the cytology and triglycerides. And cultures. Consider discontinuation of the chest tube. Wean off norepinephrine as tolerates. Continue antibiotics empirically. Continue enteral feeding. Continue Restasis and hemodynamic support. I have a feeling the patient will be extremely difficult to wean and extubate successfully. May have to eventually considered tracheostomy and PEG tube placement. Prognosis is extremely poor and guarded. Patient is critically ill. Critical care time is 40 minutes Time with Patient: Greater than 30
[2020-06-07] MEDS: CHOLECALCIFEROL 1,000 UNIT TAB PO SCH (17:19)
[2020-06-07] MEDS: NOREPINEPHRINE 32 MG in SODIUM CHLORIDE 0.9% 218 ML IV SCH (17:23)
[2020-06-07 17:51] LABS: Glucose,Whole Blood 98 mg/dL (75-99)
[2020-06-07] MEDS: ATORVASTATIN 40 MG TAB PO SCH (21:46)
[2020-06-08 00:01] LABS: Glucose,Whole Blood 98 mg/dL (75-99)
--- NOTE | 2020-06-08 00:35 | P.PN ---
Subjective Progress Note Date: 06/07/20 Principal diagnosis: fluid overload This is a pleasant 70-year-old patient was chronic stable medical conditions include CHF EF 55 and 55%, morbid obesity, chronic kidney disease stage IV secondary to nephrosclerosis, renal bone disease, anemia of chronic kidney disease, persistent atrial fibrillation, fatty liver, COPD, primary osteoarthritis, obstructive sleep apnea, chronic gout, on home oxygen, chronic medical debility at her baseline uses a lift a wheelchair. Patient is a resident at [facility]. Patient presents with increasing swelling about a week. Increase in shortness of breath. Appetite is okay. Bowel movements are okay. No fever no chills. Started on IV Lasix. Admitted with CHF exacerbation. Put on IV Lasix. On June 04 -was taken to for thoracentesis and it was a bit difficult by IR. Patient went into PEA cardiac arrest. intubated. Hypotensive. Moved to ICU. Thora-vent was placed. About 850 mL of pus-bloody fluid was obtained. [id number]. On the ventilator. Telemetry shows sinus rhythm. Left chest tube to suction. On IV levo fed and propofol. Tube feeding. Granddaughter at the bedside. Review of systems: Patient intubated Active Medications Acetaminophen (Tylenol Tab) 650 mg PO Q4H PRN PRN Reason: Pain or Fever > 100.5 Acetaminophen/Codeine Phosphate (Tylenol #3) 1 each PO TID PRN PRN Reason: Pain Last Admin: 06/04/20 01:23 Dose: 1 each Documented by: Albuterol/Ipratropium (Duoneb 0.5 Mg-3 Mg/3 Ml Soln) 3 ml INHALATION RT-QID [facility] Last Admin: 06/07/20 20:43 Dose: 3 ml Documented by: Allopurinol (Zyloprim) 100 mg PO DAILY@0800 [facility] Last Admin: 06/07/20 08:26 Dose: 100 mg Documented by: Aspirin (Aspirin) 81 mg PO DAILY@1200 [facility] Last Admin: 06/07/20 11:36 Dose: 81 mg Documented by: Atorvastatin Calcium (Lipitor) 40 mg PO HS@2100 [facility] Last Admin: 06/07/20 21:46 Dose: 40 mg Documented by: Bisacodyl (Dulcolax) 10 mg RECTAL DAILY PRN PRN Reason: Constipation Last Admin: 06/03/20 10:28 Dose: 10 mg Documented by: Calcitriol (Rocaltrol) 0.25 mcg PO DAILY@1700 [facility] Last Admin: 06/07/20 17:19 Dose: Not Given Documented by: Calcium Acetate (Phoslo) 667 mg PO DAILY@0800 [facility] Last Admin: 06/07/20 08:25 Dose: 667 mg Documented by: Chlorhexidine Gluconate (Peridex) 15 ml MUCOUS MEM BID [facility] Last Admin: 06/07/20 21:46 Dose: 15 ml Documented by: Cholecalciferol (Vitamin D3 (25 Mcg = 1000 Iu)) 2,000 unit PO DAILY@1700 [facility] Last Admin: 06/07/20 17:19 Dose: 2,000 unit Documented by: Darbepoetin Juan Jose (Aranesp) 60 mcg SQ TH [facility] Last Admin: 06/03/20 15:58 Dose: 60 mcg Documented by: Folic Acid (Folic Acid) 1 mg PO DAILY@1200 [facility] Last Admin: 06/07/20 11:36 Dose: 1 mg Documented by: Furosemide (Lasix) 40 mg IV DAILY [facility] Last Admin: 06/07/20 10:28 Dose: 40 mg Documented by: Propofol 1,000 mg/ IV Solution 100 mls @ 0 mls/hr IV .Q0M [facility]; Protocol Last Admin: 06/07/20 23:02 Dose: 20 mcg/kg/min, 24.624 mls/hr Documented by: Norepinephrine Bitartrate 32 (mg/ Sodium Chloride) 250 mls @ 4.784 mls/hr IV .Q24H [facility]; Protocol Last Titration: 06/07/20 18:49 Dose: 0.02 mcg/kg/min, 1.913 mls/hr Documented by: Piperacillin Sod/Tazobactam (Sod 3.375 gm/ Sodium Chloride) 100 mls @ 25 mls/hr IVPB Q12HR [facility] Last Admin: 06/07/20 21:46 Dose: 25 mls/hr Documented by: Insulin Aspart (Novolog) 0 unit SQ Q6H [facility]; Protocol Last Admin: 06/07/20 17:51 Dose: Not Given Documented by: Lactulose (Cephulac) 10 gm PO BID PRN PRN Reason: Constipation Loratadine (Claritin) 10 mg PO Q48H PRN PRN Reason: Allergy Symptoms Magnesium Hydroxide (Milk Of Magnesia) 2,400 mg PO DAILY PRN PRN Reason: Constipation Metoprolol Tartrate (Lopressor) 25 mg PO BID@0800,1700 [facility] Last Admin: 06/07/20 17:19 Dose: 25 mg Documented by: Midodrine (Proamatine) 5 mg PO AC-TID [facility] Last Admin: 06/07/20 17:19 Dose: 5 mg Documented by: Non-Formulary Medication (Linaclotide [Linzess]) 145 mcg PO DAILY@0800 [facility] Last Admin: 06/07/20 08:20 Dose: Not Given Documented by: Ondansetron HCl (Zofran) 4 mg IVP Q6HR PRN PRN Reason: Nausea And Vomiting Last Admin: 06/04/20 05:36 Dose: 4 mg Documented by: Sendavid (Senokot) 8.6 - 17.2 mg PO HS PRN PRN Reason: Constipation Last Admin: 06/03/20 10:28 Dose: 17.2 mg Documented by: Triamcinolone Acetonide (Kenalog) 1 applic TOPICAL BID [facility] Last Admin: 06/07/20 21:47 Dose: 1 applic Documented by: Objective - Vital Signs Vital signs: Vital Signs Temp 97.6 F 06/07/20 12:00 Pulse 66 06/07/20 15:00 Resp 24 06/07/20 15:00 BP 119/52 06/07/20 10:15 Pulse Ox 100 06/07/20 15:00 Intake & Output 06/06/20 06/07/20 06/07/20 18:59 06:59 18:59 Intake Total 1145.693 647.630 9851.689 Output Total 1200 835 925 Balance -54.307 -300.346 292.689 Weight 205.2 kg 205.2 kg Intake: IV 388 331 262 0.9 pressure bag 78 66 42 Piperacillin-Tazobactam 3 100 100 100 .375 gm In Sodium Chloride 0.9% 100 ml @ 25 mls/hr IVPB Q12HR [facility] Rx #:[id number] Sodium Chloride 0.9% 1, 210 165 120 000 ml @ 50 mls/hr IV . Q20H [facility] Rx#:[id number] Intake, IV Titration 257.693 203.654 115.689 Amount Norepinephrine 32 mg In 64.623 40.662 15.689 Sodium Chloride 0.9% 218 ml @ 0.05 MCG/KG/MIN 4. 784 mls/hr IV .Q24H [facility] Rx#:[id number] propofoL 1,000 mg In 193.07 162.992 100.000 Empty Bag 1 bag @ Titrate IV .Q0M [facility] Rx#: [id number] Tube Feeding 410 455 Blood Product 0 310 Rc As-1 Unit 0 310 [id number] Other 90 75 Output: Chest Tube Drainage 0 Left Upper Anterior Chest 0 Urine 1200 835 925 Other: Voiding Method Indwelling Catheter Indwelling Catheter Indwelling Catheter ABP, PAP, CO, CI - Last Documented Arterial Blood Pressure 118/51 - Exam GENERAL: Laying in bed, intubated EYES: Pupils equal. Conjunctiva normal. HEENT: External appearance of nose and ears normal, oral cavity-endotracheal tube NECK: JVD unable to assess masses not palpable. HEART: First and second heart sounds are normal; no edema. LUNGS: Respiratory rate increased, distant breath [id number] chest tube ABDOMEN: Soft, nontender, liver spleen not palpable, no masses palpable. PSYCH: Sedated MUSCULAR skeletal: [place] - Labs CBC & Chem 7: 06/07/20 04:25 06/07/20 04:25 Labs: Abnormal Lab Results - Last 24 Hours (Table) 06/06/20 06/06/20 06/06/20 Range/Units 09:36 17:54 23:40 WBC (3.8-10.6) k/uL RBC (3.80-5.40) m/uL Hgb (11.4-16.0) gm/dL Hct (34.0-46.0) % MCHC (31.0-37.0) g/dL RDW (11.5-15.5) % Plt Count (150-450) k/uL Neutrophils # (1.3-7.7) k/uL Lymphocytes # (1.0-4.8) k/uL ABG pH (7.35-7.45) ABG pO2 (83-108) mmHg ABG HCO3 (21-25) mmol/L ABG Total CO2 (19-24) mmol/L ABG O2 Saturation (94-97) % BUN (7-17) mg/dL Creatinine (0.52-1.04) mg/dL Glucose (74-99) mg/dL POC Glucose (mg/dL) 108 H 122 H (75-99) mg/dL Calcium (8.4-10.2) mg/dL Procalcitonin 0.57 H (0.02-0.09) ng/mL Crossmatch 06/07/20 06/07/20 06/07/20 Range/Units 04:25 04:25 04:25 WBC 11.0 H (3.8-10.6) k/uL RBC 2.51 L (3.80-5.40) m/uL Hgb 6.7 L* (11.4-16.0) gm/dL Hct 23.8 L (34.0-46.0) % MCHC 28.3 L (31.0-37.0) g/dL RDW 19.6 H (11.5-15.5) % Plt Count 114 L (150-450) k/uL Neutrophils # 8.7 H (1.3-7.7) k/uL Lymphocytes # 0.9 L (1.0-4.8) k/uL ABG pH 7.47 H (7.35-7.45) ABG pO2 164 H (83-108) mmHg ABG HCO3 26 H (21-25) mmol/L ABG Total CO2 27 H (19-24) mmol/L ABG O2 Saturation 100.0 H (94-97) % BUN 94 H (7-17) mg/dL Creatinine 3.34 H (0.52-1.04) mg/dL Glucose 114 H (74-99) mg/dL POC Glucose (mg/dL) (75-99) mg/dL Calcium 8.3 L (8.4-10.2) mg/dL Procalcitonin (0.02-0.09) ng/mL Crossmatch 06/07/20 06/07/20 06/07/20 Range/Units 04:56 05:00 11:31 WBC (3.8-10.6) k/uL RBC (3.80-5.40) m/uL Hgb (11.4-16.0) gm/dL Hct (34.0-46.0) % MCHC (31.0-37.0) g/dL RDW (11.5-15.5) % Plt Count (150-450) k/uL Neutrophils # (1.3-7.7) k/uL Lymphocytes # (1.0-4.8) k/uL ABG pH (7.35-7.45) ABG pO2 (83-108) mmHg ABG HCO3 (21-25) mmol/L ABG Total CO2 (19-24) mmol/L ABG O2 Saturation (94-97) % BUN (7-17) mg/dL Creatinine (0.52-1.04) mg/dL Glucose (74-99) mg/dL POC Glucose (mg/dL) 127 H 135 H (75-99) mg/dL Calcium (8.4-10.2) mg/dL Procalcitonin (0.02-0.09) ng/mL Crossmatch See Detail Microbiology - Last 24 Hours (Table) 06/04/20 18:57 Gram Stain - Preliminary Pleural Fluid Body Fluid Culture - Preliminary 06/02/20 14:23 Blood Culture - Preliminary Blood No Growth after 96 hours Assessment and Plan Assessment: - -Acute on Chronic congestive heart failure from diastolic dysfunction EF 55-60% -Left pleural effusion 8 50 mL of fluid evacuated with Thora-vent now with the chest tube-slow to respond -Chronic kidney disease stage IV secondary to nephrosclerosis with some worsening -Morbid obesity BMI 75.2 -Chronic kidney disease renal bone disease -Anemia of chronic kidney disease -Persistent atrial fibrillation, rate controlled Nonalcoholic fatty liver disease -COPD in an ex-smoker -Primary osteoarthritis -Obstructive sleep apnea -Chronic gout -Chronic hypoxic respiratory failure from COPD -Chronic medical debility and a baseline patient does use a lift to a wheelchair -Thoracentesis with the Thora-vent in place -Acute hypoxic, hypercapnic respiratory failure-requiring ventilator support- slow to respond -Hypotensive shock requiring pressor support Plan: remains on the ventilator, on propofol at levo fed. Antibodies include IV Zosyn. Other medications to continue. Prognosis guarded. Time with Patient: Greater than 30
[2020-06-08] MEDS: INSULIN ASPART (NovoLOG) 100 UNIT/ML VIAL SQ SCH ×4 (00:40→17:53)
[2020-06-08 04:59] LABS: Anisocytosis Slight; HCT 24.4 % (34.0-46.0); Hypochromasia Marked; MCH 26.9 pg (25.0-35.0); MCHC 28.5 g/dL (31.0-37.0); MCV 94.5 fL (80.0-100.0); Macrocytosis Slight; Mean Platelet Volume 9.6; Poikilocytosis Moderate; RBC 2.58 m/uL (3.80-5.40); WBC 8.2 k/uL (3.8-10.6)
[2020-06-08 05:08] LABS: Albumin 2.2 g/dL (3.5-5.0); Calcium 8.3 mg/dL (8.4-10.2); Potassium 3.8 mmol/L (3.5-5.1); Total Bilirubin 0.8 mg/dL (0.2-1.3); Total Protein 4.9 g/dL (6.3-8.2)
[2020-06-08 05:22] LABS: Platelet Count 87 k/uL (150-450)
[2020-06-08 05:46] LABS: Glucose,Whole Blood 114 mg/dL (75-99)
[2020-06-08] MEDS: IPRATROPIUM-ALBUTEROL 3 ML NEB INHALATION SCH ×4 (07:40→21:17)
--- NOTE | 2020-06-08 07:42 | XR ---
EXAMINATION TYPE: XR chest 1V portable DATE OF EXAM: 06/08/2020 CLINICAL HISTORY: Difficulty breathing progress study. TECHNIQUE: Single AP portable upright view of the chest is obtained. COMPARISON: Chest x-ray from one day earlier and older studies. FINDINGS: Stable endotracheal tube, orogastric tube, and left internal jugular central venous cathet er. Persistent left basilar Thoravent pleural drainage catheter. Persistent cardiomegaly with bibasil ar opacities and left suprahilar focal consolidation. Central vascular congestion redemonstrated. Mul tilevel spurring the spine spine again seen. IMPRESSION: Cardiomegaly with central vascular congestion and small to moderate-sized bilateral pleur al fluid collections with left-sided pleural drainage catheter. Bibasilar acute atelectasis and/or in filtrate redemonstrated. Persistent left suprahilar masslike consolidation. No significant change fro m one day earlier.
[2020-06-08 07:45] LABS: ABG Base Excess 3.7 mmol/L; ABG HCO3 28 mmol/L (21-25); ABG Oxygen Saturation 90.6 % (94-97); ABG PCO2 43 mmHg (35-45); ABG PH 7.42 (7.35-7.45); ABG PO2 60 mmHg (83-108); ABG TCO2 29 mmol/L (19-24)
[2020-06-08] MEDS: NON FORMULARY DRUG (Linaclotide [Linzess] 145 MCG) PO SCH (08:10)
[2020-06-08] MEDS: CHLORHEXIDINE GLUCONATE 15 ML CUP MUCOUS MEM SCH ×2 (08:17→20:30)
[2020-06-08] MEDS: allopurinoL 100 MG TAB PO SCH (08:17)
[2020-06-08] MEDS: MIDODRINE 5 MG TAB PO SCH ×3 (08:17→16:50)
[2020-06-08] MEDS: CALCIUM ACETATE 667 MG TAB PO SCH (08:17)
[2020-06-08] MEDS: METOPROLOL TARTRATE 25 MG TAB PO SCH ×2 (08:18→16:50)
[2020-06-08] MEDS: TRIAMCINOLONE 0.1% CREAM 80 GM TUBE TOPICAL SCH ×2 (08:18→20:30)
[2020-06-08] MEDS: FUROSEMIDE 10 MG/ML 4 ML VIAL IV SCH ×2 (08:18→20:30)
[2020-06-08] MEDS: PIPERACILLIN-TAZOBACTAM 3.375 GM in SODIUM CHLORIDE 0.9% 100 ML IVPB SCH ×2 (08:18→20:29)
--- NOTE | 2020-06-08 10:25 | P.PN ---
Subjective Patient is seen in follow-up for acute kidney injury on chronic kidney disease. Renal function stable. Urine output 50-100 mL an hour. Patient had PEA arrest on June 04 and received 1 dose of epinephrine. She is intubated and sedated. Noted to have pneumothorax and has a thoravent in place. She is receiving tube feeding. Remains on Levophed. Status post blood transfusion on June 07. Hemoglobin 7.0 today. Vital signs are stable. Currently on Levophed. General: The patient appeared well nourished and normally developed. HEENT: Head exam is unremarkable. Neck is without jugular venous distension. Intubated. LUNGS: Breath sounds decreased. HEART: Regular rhythm. ABDOMEN: Soft, nontender. Obese. EXTREMITITES: 3+ edema. Chronic changes noted. Objective - Vital Signs Vital signs: Vital Signs Temp 97.8 F 06/08/20 08:00 Pulse 101 H 06/08/20 09:00 Resp 24 06/08/20 09:00 BP 119/52 06/07/20 10:15 Pulse Ox 94 L 06/08/20 09:00 Intake & Output 06/07/20 06/08/20 06/08/20 18:59 06:59 18:59 Intake Total 8003.003 9143.236 532.854 Output Total 1850 1020 195 Balance -104.875 165.236 337.854 Weight 205.2 kg 205.2 kg Intake: IV 346 292 84 0.9 pressure bag 66 72 24 Piperacillin-Tazobactam 3 100 100 .375 gm In Sodium Chloride 0.9% 100 ml @ 25 mls/hr IVPB Q12HR [facility] Rx #:[id number] Sodium Chloride 0.9% 1, 180 120 60 000 ml @ 50 mls/hr IV . Q20H [facility] Rx#:[id number] Intake, IV Titration 269.125 188.236 128.854 Amount Norepinephrine 32 mg In 33.831 28.854 Sodium Chloride 0.9% 218 ml @ 0.05 MCG/KG/MIN 4. 784 mls/hr IV .Q24H [facility] Rx#:[id number] propofoL 1,000 mg In 235.294 188.236 100 Empty Bag 1 bag @ Titrate IV .Q0M [facility] Rx#: [id number] Tube Feeding 715 585 260 Blood Product 310 Rc As-1 Unit 310 [id number] Other 105 120 60 Output: Urine 1850 1020 195 Other: Voiding Method Indwelling Catheter Indwelling Catheter Indwelling Catheter ABP, PAP, CO, CI - Last Documented Arterial Blood Pressure 96/52 - Labs CBC & Chem 7: 06/08/20 04:45 06/08/20 04:45 Labs: Abnormal Lab Results - Last 24 Hours (Table) 06/06/20 06/07/20 06/08/20 Range/Units 09:36 11:31 04:45 RBC 2.58 L (3.80-5.40) m/uL Hgb 7.0 L (11.4-16.0) gm/dL Hct 24.4 L (34.0-46.0) % MCHC 28.5 L (31.0-37.0) g/dL RDW 19.0 H (11.5-15.5) % Plt Count 87 L (150-450) k/uL ABG pO2 (83-108) mmHg ABG HCO3 (21-25) mmol/L ABG Total CO2 (19-24) mmol/L ABG O2 Saturation (94-97) % Chloride (98-107) mmol/L BUN (7-17) mg/dL Creatinine (0.52-1.04) mg/dL POC Glucose (mg/dL) 135 H (75-99) mg/dL Calcium (8.4-10.2) mg/dL Total Protein (6.3-8.2) g/dL Albumin (3.5-5.0) g/dL Procalcitonin 0.57 H (0.02-0.09) ng/mL 06/08/20 06/08/20 06/08/20 Range/Units 04:45 05:45 07:40 RBC (3.80-5.40) m/uL Hgb (11.4-16.0) gm/dL Hct (34.0-46.0) % MCHC (31.0-37.0) g/dL RDW (11.5-15.5) % Plt Count (150-450) k/uL ABG pO2 60 L (83-108) mmHg ABG HCO3 28 H (21-25) mmol/L ABG Total CO2 29 H (19-24) mmol/L ABG O2 Saturation 90.6 L (94-97) % Chloride 108 H (98-107) mmol/L BUN 84 H (7-17) mg/dL Creatinine 3.29 H (0.52-1.04) mg/dL POC Glucose (mg/dL) 114 H (75-99) mg/dL Calcium 8.3 L (8.4-10.2) mg/dL Total Protein 4.9 L (6.3-8.2) g/dL Albumin 2.2 L (3.5-5.0) g/dL Procalcitonin (0.02-0.09) ng/mL Microbiology - Last 24 Hours (Table) 06/02/20 14:23 Blood Culture - Preliminary Blood No Growth after 120 hours Assessment and Plan Plan: Assessment: 1. Acute kidney injury secondary to ATN secondary to cardiac arrest/hemodynamic instability. Creatinine stable at 3.29. 2. Chronic kidney disease stage IV with baseline creatinine 2.7-3 secondary to nephrosclerosis. 3. Acute on chronic diastolic CHF. 4. Status post PEA arrest on June 04. 5. Anemia of chronic kidney disease maintained on Aranesp. Receiving a unit of blood today. 6. Chronic kidney disease mineral bone disease maintained on calcitriol and PhosLo. 7. Shock possibly septic from pneumonia maintained on Levophed. 8. Pneumothorax status post Thora-Vent placement. Plan: Increase Lasix to 40 mg IV twice daily. Continue to monitor renal function and urine output. Weaf FiO2 and Levophed. Monitor hemoglobin. Maintain tube feeding.
[2020-06-08 11:40] LABS: Glucose,Whole Blood 132 mg/dL (75-99)
[2020-06-08] MEDS: FOLIC ACID 1 MG TAB PO SCH (11:41)
[2020-06-08] MEDS: ASPIRIN 81 MG PO SCH (11:41)
--- NOTE | 2020-06-08 14:25 | P.PN ---
Subjective Progress Note Date: 06/08/20 Principal diagnosis: Acute hypoxic respiratory failure and left lower lobe pneumonia, with pleural effusion. 70-year-old female patient, residential resident who was referred back to the emergency department because of worsening shortness of breath and hypoxemia. The patient had significant amount of weight gain in the order of 11 pounds over this past week. She also reported worsening lower extremity edema. She was unable to ambulate. She is currently bedbound. She is morbidly obese with a BMI of 34.2. No fever no chills. No aspiration. She has a mild cough. No c hest pain. The chest x-rays showing complete opacification of the left lung without any significant shift of the trachea or volume loss. The left mainstem bronchus is currently off. White cell count 9.3 with hemoglobin of 7.9. Coagulation profile is within normal. 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 Serum bicarb is 29 with a sodium of 138. The liver functions is on essentially within normal limits. Albumin is at 3.3 with a total protein of 6.9. ProBNP level was 11,300. Currently, the patient is on 2 L of oxygen by nasal cannula. Pulse ox and order of 97%. Long with stage IV kidney disease secondary to do hypertensive nephrosclerosis. She also has chronic anemia, chronic proximal atrial fibrillation, COPD, osteoarthritis, obstructive sleep apnea, gout and she Zyvox and dependent and she has home O2. She is medically debilitated and she is a left and a walker. She is a resident of a [facility]. During her most recent hospitalization, the anemia was further worked up by EGD EGD showed mild gastritis. There was mild duodenitis. There was a small hiatal hernia. 06/06/2020, the patient remains intubated on a mechanical ventilator. The patient is currently sedated with propofol running at 40 g per KG per minute. The patient is requiring low-dose norepinephrine infusion for blood pressure sup port and this is running at 0.0 mg per KG per minute. The patient is receiving enteral feeding with vital high protein at the rate of 50 mL an hour. The patient has a fluoroscopy vent on the left lung. A total of 700 mL of fluid was aspirated yesterday. The fluid is a bit bloody and creamy and esophagus and there is a possibility of a chylothorax. The initial analysis came back as a transudate with a low LDH and low protein. The fluid triglycerides still pending for now. Meanwhile, the patient had a follow-up chest x-ray today that showed that the Thoravent is adequate location. There is some improved aeration left upper lobe. His volume loss in the left lung along with some ongoing consolidation of left lower lobe. The ET tube is in a good location. The patient has some cardiomegaly. The patient is currently on assist control mode of ventilation. The patient is on a assist-control of 20 with a rate of 20 and a tidal volume of 400 and FiO2 of 50% and a PEEP of 5. The pH is at 7.47 with a pCO2 of 35 and pO2 of 232. The patient's peak air pressure is around 30 to anesthetic pressures somewhat elevated this is secondary and this is secondary to extrapulmonary restriction with elevation of the anesthetic pressures. Adequate urine output. Lasix was given by nephrology to dose of 40 mg 1. There is some edema lower extremities. Fluid cytology from the left lung is still pending for now. On 06/07/20, patient remains in the ICU, intubated and mechanically ventilated. She is on assist control rate of 28, FiO2 is 40%, tidal volume is 400 and PEEP of 5. ABG showed a pO2 of 164 pCO2 of 36 and pH of 7.47. Patient remains sedated, on propofol at 20 mcg/kg/m, she is also on norepinephrine at 0.02 mcg/kg/m. Ventilator settings were changed to assist control rate of 24 and FiO2 was decreased down to 35%. Patient is in atrial fibrillation however her rate seems to be well-controlled. Continues to have a left sided chest tube/thoravent in place. Continues to have significant consolidation of the left lower lobe. Patient is now draining significantly yellow fluid possible chylothorax noted, triglycerides were ordered on the fluid. She also received a unit of packed RBCs today for hemoglobin of 6.7. That triglycerides level on the pleural effusion is pending. Patient was reevaluated today on 06/08/2020, remains in the ICU, intubated and mechanically ventilated. Patient is on assist control rate of 24 tidal volume is 400 FiO2 is 35% and PEEP of 5. ABG showed a pO2 of 60 pCO2 43 pH of 7.42, hence her FiO2 was increased to 40%. Patient remains on norepinephrine at 0.02 g/kg/m, she is off propofol this morning, and I plan to assess her mental status. According to the nurse the patient didn't follow simple instructions yesterday off propofol. Chest x-ray continues to show evidence of bibasilar opacities especially opacity over the left hemithorax, thoravent remains in place, however not draining, and there is no air leak. I plan to It, and possibly discontinue this in the next 24-48 hours. Review the results of her last bronchoscopy, blood cultures are nondiagnostic. Patient remains on TPN feeding, she is up to goal, patient remains on Lasix, she remains in atrial fibrillation with controlled rate. CBC showed a hemoglobin of 7 and electrolytes are normal renal profile is poor with BUN of 84 creatinine 3.29. Not much size changer the last 6 days. Blood cultures and sputum cultures as well as pleural effusion cultures are all negative. Triglycerides on the pleural effusion is still pending. Objective - Vital Signs Vital signs: Vital Signs Temp 97.7 F 06/08/20 12:00 Pulse 72 06/08/20 14:15 Resp 24 06/08/20 14:15 BP 119/52 06/07/20 10:15 Pulse Ox 99 06/08/20 14:15 Intake & Output 06/07/20 06/08/20 06/08/20 18:59 06:59 18:59 Intake Total 7430.059 0489.236 734.854 Output Total 1850 1020 395 Balance -104.875 165.236 339.854 Weight 205.2 kg 205.2 kg Intake: IV 346 292 126 0.9 pressure bag 66 72 36 Piperacillin-Tazobactam 3 100 100 .375 gm In Sodium Chloride 0.9% 100 ml @ 25 mls/hr IVPB Q12HR [facility] Rx #:[id number] Sodium Chloride 0.9% 1, 180 120 90 000 ml @ 50 mls/hr IV . Q20H [facility] Rx#:[id number] Intake, IV Titration 269.125 188.236 128.854 Amount Norepinephrine 32 mg In 33.831 28.854 Sodium Chloride 0.9% 218 ml @ 0.05 MCG/KG/MIN 4. 784 mls/hr IV .Q24H [facility] Rx#:[id number] propofoL 1,000 mg In 235.294 188.236 100 Empty Bag 1 bag @ Titrate IV .Q0M [facility] Rx#: [id number] Tube Feeding 715 585 390 Blood Product 310 Rc As-1 Unit 310 [id number] Other 105 120 90 Output: Urine 1850 1020 395 Other: Voiding Method Indwelling Catheter Indwelling Catheter Indwelling Catheter ABP, PAP, CO, CI - Last Documented Arterial Blood Pressure 124/58 - Exam Very pleasant 70-year-old female patient, morbidly obesity BMI of 75.2 on mechanical ventilation. Head exam atraumatic, normocephalic. Endotracheal tube and orogastric tubes are intact. Neck was supple and without jugular venous distension, thyromegaly, or carotid bruits. Carotids were easily palpable bilaterally. Cardiac exam distant S1 and S2, no S3 gallop, no murmur could be appreciated. Lungs symmetrical chest expansion, diminished breath sounds on the left side, left sided thoravent is noted. Abdominal exam revealed morbidly obese, nontender, no megaly, no rebound Examination of the extremities revealed bipedal edema, diminished distal pulses bilaterally. Examination of the skin revealed no evidence of significant rashes, Neurologically, could not be assessed. Patient is not responding to any painful or verbal stimuli. On propofol Psychiatric could not be assessed. - Labs CBC & Chem 7: 06/08/20 04:45 06/08/20 04:45 Labs: Abnormal Lab Results - Last 24 Hours (Table) 06/08/20 06/08/20 06/08/20 Range/Units 04:45 04:45 05:45 RBC 2.58 L (3.80-5.40) m/uL Hgb 7.0 L (11.4-16.0) gm/dL Hct 24.4 L (34.0-46.0) % MCHC 28.5 L (31.0-37.0) g/dL RDW 19.0 H (11.5-15.5) % Plt Count 87 L (150-450) k/uL ABG pO2 (83-108) mmHg ABG HCO3 (21-25) mmol/L ABG Total CO2 (19-24) mmol/L ABG O2 Saturation (94-97) % Chloride 108 H (98-107) mmol/L BUN 84 H (7-17) mg/dL Creatinine 3.29 H (0.52-1.04) mg/dL POC Glucose (mg/dL) 114 H (75-99) mg/dL Calcium 8.3 L (8.4-10.2) mg/dL Total Protein 4.9 L (6.3-8.2) g/dL Albumin 2.2 L (3.5-5.0) g/dL 06/08/20 06/08/20 Range/Units 07:40 11:38 RBC (3.80-5.40) m/uL Hgb (11.4-16.0) gm/dL Hct (34.0-46.0) % MCHC (31.0-37.0) g/dL RDW (11.5-15.5) % Plt Count (150-450) k/uL ABG pO2 60 L (83-108) mmHg ABG HCO3 28 H (21-25) mmol/L ABG Total CO2 29 H (19-24) mmol/L ABG O2 Saturation 90.6 L (94-97) % Chloride (98-107) mmol/L BUN (7-17) mg/dL Creatinine (0.52-1.04) mg/dL POC Glucose (mg/dL) 132 H (75-99) mg/dL Calcium (8.4-10.2) mg/dL Total Protein (6.3-8.2) g/dL Albumin (3.5-5.0) g/dL Microbiology - Last 24 Hours (Table) 06/02/20 14:23 Blood Culture - Preliminary Blood No Growth after 120 hours Assessment and Plan Assessment: Impression: Acute on chronic hypoxic respiratory failure, presented with complete opacific ation of the left lung and large left-sided pleural effusion, transudative in nature, however the color of the fluid today is suspicious for possible chylothorax. Triglycerides on the fluid are pending. Cytology on the fluid is pending. Acute left lower lobe pneumonia and possible septic shock on presentation. Morbid obesity with BMI of 74.2. Chronic hypoxic respiratory failure, normally on 2 L nasal cannula. Chronic kidney disease stage IV Chronic gastritis. Chronic diastolic congestive heart failure. Anemia of chronic kidney disease. Nonalcoholic fatty liver disease. COPD, ex-smoker. Presently inactive. Medical debility, patient is bed bound Chronic gout. Obstructive sleep apnea syndrome. Recommendation: Continue ventilatory support. Continue sedation holidays. Presently off propofol to assess mental status and possibly consider checking weaning parameters and possibly a weaning trial on pressure support and CPAP. Awaiting final report on the fluid including report on the cytology and triglycerides. And cultures. Consider discontinuation of the chest tube. The chest tube will be Today. Wean off norepinephrine as tolerates. Continue antibiotics empirically. Continue enteral feeding. Continue hemodynamic support. I have a feeling the patient will be extremely difficult to wean and extubate successfully. Patient may require tracheostomy and PEG tube placement. Prognosis is extremely poor and guarded. Patient is critically ill. Critical care time is 35 minutes Time with Patient: Greater than 30
[2020-06-08] MEDS: CHOLECALCIFEROL 1,000 UNIT TAB PO SCH (16:50)
[2020-06-08] MEDS: NOREPINEPHRINE 32 MG in SODIUM CHLORIDE 0.9% 218 ML IV SCH (16:50)
[2020-06-08 17:52] LABS: Glucose,Whole Blood 127 mg/dL (75-99)
[2020-06-08] MEDS: SENNOSIDES 8.6 MG TAB PO PRN (20:30)
[2020-06-08] MEDS: ATORVASTATIN 40 MG TAB PO SCH (20:30)
[2020-06-08] MEDS: LACTULOSE 20 GM/30 ML CUP PO PRN (20:30)
[2020-06-09 00:11] LABS: Glucose,Whole Blood 93 mg/dL (75-99)
[2020-06-09] MEDS: INSULIN ASPART (NovoLOG) 100 UNIT/ML VIAL SQ SCH ×4 (00:26→17:42)
[2020-06-09 04:27] LABS: Anisocytosis Slight; HCT 27.4 % (34.0-46.0); HGB 7.9 gm/dL (11.4-16.0); Hypochromasia Marked; MCH 27.6 pg (25.0-35.0); MCHC 28.7 g/dL (31.0-37.0); Macrocytosis Slight; Mean Platelet Volume 10.6; Platelet Count 87 k/uL (150-450); Poikilocytosis Moderate; RBC 2.85 m/uL (3.80-5.40); RDW 18.4 % (11.5-15.5); WBC 11.8 k/uL (3.8-10.6)
[2020-06-09 04:36] LABS: Albumin 2.5 g/dL (3.5-5.0); Potassium 4.2 mmol/L (3.5-5.1); Total Protein 5.5 g/dL (6.3-8.2)
[2020-06-09 04:37] LABS: Calcium 8.3 mg/dL (8.4-10.2); Total Bilirubin 0.7 mg/dL (0.2-1.3)
[2020-06-09] MEDS: IPRATROPIUM-ALBUTEROL 3 ML NEB INHALATION SCH ×4 (07:29→19:48)
[2020-06-09 07:34] LABS: ABG Base Excess 3.9 mmol/L; ABG HCO3 29 mmol/L (21-25); ABG Oxygen Saturation 97.3 % (94-97); ABG PCO2 45 mmHg (35-45); ABG PH 7.41 (7.35-7.45); ABG PO2 88 mmHg (83-108); ABG TCO2 30 mmol/L (19-24)
[2020-06-09] MEDS: SODIUM CHLORIDE 0.9% 1,000 ML IV SCH (08:00)
--- NOTE | 2020-06-09 08:15 | XR ---
EXAMINATION TYPE: XR chest 1V portable DATE OF EXAM: 06/09/2020 COMPARISON: X-ray chest 06/08/2020 HISTORY: Intubated TECHNIQUE: Single frontal view of the chest is obtained. FINDINGS: A shunt is rotated. Endotracheal tube and NG tube are overlying appropriate positions. The re is no evident pneumothorax. Bibasilar increased density is present. There is perhaps some improvem ent in the prominence and central vascularity left-sided chest tube is again seen. Heart remains enla rged. Left jugular central venous catheter is unchanged. IMPRESSION: Suspect some improvement in patient's volume status. There may be basilar effusions, ate lectasis, difficult to exclude pneumonia. Cardiomegaly.
[2020-06-09] MEDS: CALCIUM ACETATE 667 MG TAB PO SCH (09:16)
[2020-06-09] MEDS: MIDODRINE 5 MG TAB PO SCH ×3 (09:16→16:38)
[2020-06-09] MEDS: CHLORHEXIDINE GLUCONATE 15 ML CUP MUCOUS MEM SCH ×2 (09:17→22:15)
[2020-06-09] MEDS: NON FORMULARY DRUG (Linaclotide [Linzess] 145 MCG) PO SCH (09:17)
[2020-06-09] MEDS: METOPROLOL TARTRATE 25 MG TAB PO SCH ×2 (09:17→16:33)
[2020-06-09] MEDS: allopurinoL 100 MG TAB PO SCH (09:17)
[2020-06-09] MEDS: FUROSEMIDE 10 MG/ML 4 ML VIAL IV SCH (09:17)
[2020-06-09] MEDS: PIPERACILLIN-TAZOBACTAM 3.375 GM in SODIUM CHLORIDE 0.9% 100 ML IVPB SCH ×2 (09:18→22:15)
--- NOTE | 2020-06-09 11:22 | P.PN ---
Subjective Patient is seen in follow-up for acute kidney injury on chronic kidney disease. Renal function better. Urine output 30-100 mL an hour. Patient had PEA arrest on June 04 and received 1 dose of epinephrine. She is intubated and sedated. Noted to have pneumothorax and has a thoravent in place. She is receiving tube feeding. Remains on low-dose Levophed. Status post blood transfusion on June 07. Hemoglobin 7.9 today. Vital signs are stable. Currently on Levophed. General: The patient appeared well nourished and normally developed. HEENT: Head exam is unremarkable. Neck is without jugular venous distension. Intubated. LUNGS: Breath sounds decreased. HEART: Regular rhythm. ABDOMEN: Soft, nontender. Obese. EXTREMITITES: 3+ edema. Chronic changes noted. Objective - Vital Signs Vital signs: Vital Signs Temp 98.6 F 06/09/20 08:30 Pulse 87 06/09/20 10:15 Resp 20 06/09/20 10:15 BP 134/73 06/09/20 08:45 Pulse Ox 98 06/09/20 10:15 Intake & Output 06/08/20 06/09/20 06/09/20 18:59 06:59 18:59 Intake Total 3423.655 0269.320 488.216 Output Total 825 1010 195 Balance 620.849 265.320 293.216 Weight 206.8 kg Intake: IV 252 202 141 0.9 pressure bag 72 72 21 Piperacillin-Tazobactam 3 100 100 .375 gm In Sodium Chloride 0.9% 100 ml @ 25 mls/hr IVPB Q12HR [facility] Rx #:[id number] Sodium Chloride 0.9% 1, 180 30 20 000 ml @ 50 mls/hr IV . Q20H [facility] Rx#:[id number] Intake, IV Titration 248.849 203.320 32.216 Amount Norepinephrine 32 mg In 48.849 14.571 Sodium Chloride 0.9% 218 ml @ 0.05 MCG/KG/MIN 4. 784 mls/hr IV .Q24H [facility] Rx#:[id number] propofoL 1,000 mg In 200 188.749 32.216 Empty Bag 1 bag @ Titrate IV .Q0M [facility] Rx#: [id number] Tube Feeding 780 780 195 Other 165 90 120 Output: Chest Tube Drainage 0 Left Upper Anterior Chest 0 Urine 825 1010 195 Other: Voiding Method Indwelling Catheter Indwelling Catheter Indwelling Catheter ABP, PAP, CO, CI - Last Documented Arterial Blood Pressure 109/46 - Labs CBC & Chem 7: 06/09/20 04:15 06/09/20 04:15 Labs: Abnormal Lab Results - Last 24 Hours (Table) 06/08/20 06/08/20 06/09/20 Range/Units 11:38 17:51 04:15 WBC 11.8 H (3.8-10.6) k/uL RBC 2.85 L (3.80-5.40) m/uL Hgb 7.9 L (11.4-16.0) gm/dL Hct 27.4 L (34.0-46.0) % MCHC 28.7 L (31.0-37.0) g/dL RDW 18.4 H (11.5-15.5) % Plt Count 87 L (150-450) k/uL ABG HCO3 (21-25) mmol/L ABG Total CO2 (19-24) mmol/L ABG O2 Saturation (94-97) % Chloride (98-107) mmol/L BUN (7-17) mg/dL Creatinine (0.52-1.04) mg/dL Glucose (74-99) mg/dL POC Glucose (mg/dL) 132 H 127 H (75-99) mg/dL Calcium (8.4-10.2) mg/dL Total Protein (6.3-8.2) g/dL Albumin (3.5-5.0) g/dL 06/09/20 06/09/20 Range/Units 04:15 07:28 WBC (3.8-10.6) k/uL RBC (3.80-5.40) m/uL Hgb (11.4-16.0) gm/dL Hct (34.0-46.0) % MCHC (31.0-37.0) g/dL RDW (11.5-15.5) % Plt Count (150-450) k/uL ABG HCO3 29 H (21-25) mmol/L ABG Total CO2 30 H (19-24) mmol/L ABG O2 Saturation 97.3 H (94-97) % Chloride 108 H (98-107) mmol/L BUN 88 H (7-17) mg/dL Creatinine 3.06 H (0.52-1.04) mg/dL Glucose 110 H (74-99) mg/dL POC Glucose (mg/dL) (75-99) mg/dL Calcium 8.3 L (8.4-10.2) mg/dL Total Protein 5.5 L (6.3-8.2) g/dL Albumin 2.5 L (3.5-5.0) g/dL Microbiology - Last 24 Hours (Table) 06/04/20 18:57 Gram Stain - Final Pleural Fluid Body Fluid Culture - Final 06/02/20 14:23 Blood Culture - Final Blood No Growth after 144 hours Assessment and Plan Plan: Assessment: 1. Acute kidney injury secondary to ATN secondary to cardiac arrest/hemodynamic instability. Renal function will better. Creatinine 3.06 today. 2. Chronic kidney disease stage IV with baseline creatinine 2.7-3 secondary to nephrosclerosis. 3. Acute on chronic diastolic CHF. 4. Status post PEA arrest on June 04. 5. Anemia of chronic kidney disease maintained on Aranesp. Receiving a unit of blood today. 6. Chronic kidney disease mineral bone disease maintained on calcitriol and PhosLo. 7. Shock possibly septic from pneumonia maintained on Levophed. 8. Pneumothorax status post Thora-Vent placement. 9. Volume overload. Plan: Increase Lasix to 60 mg IV twice daily. Continue to monitor renal function and urine output. Weaf FiO2 and Levophed. Monitor hemoglobin. Maintain tube feeding.
[2020-06-09 11:34] LABS: Glucose,Whole Blood 134 mg/dL (75-99)
[2020-06-09] MEDS: ASPIRIN 81 MG PO SCH (13:12)
[2020-06-09] MEDS: FOLIC ACID 1 MG TAB PO SCH (13:12)
--- NOTE | 2020-06-09 13:57 | P.PN ---
Subjective Progress Note Date: 06/09/20 Principal diagnosis: Acute hypoxic respiratory failure and left lower lobe pneumonia, with pleural effusion. 70-year-old female patient, assisted resident who was referred back to the emergency department because of worsening shortness of breath and hypoxemia. The patient had significant amount of weight gain in the order of 11 pounds over this past week. She also reported worsening lower extremity edema. She was unable to ambulate. She is currently bedbound. She is morbidly obese with a BMI of 34.2. No fever no chills. No aspiration. She has a mild cough. No c hest pain. The chest x-rays showing complete opacification of the left lung without any significant shift of the trachea or volume loss. The left mainstem bronchus is currently off. White cell count 9.3 with hemoglobin of 7.9. Coagulation profile is within normal. 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 Serum bicarb is 29 with a sodium of 138. The liver functions is on essentially within normal limits. Albumin is at 3.3 with a total protein of 6.9. ProBNP level was 11,300. Currently, the patient is on 2 L of oxygen by nasal cannula. Pulse ox and order of 97%. Long with stage IV kidney disease secondary to do hypertensive nephrosclerosis. She also has chronic anemia, chronic proximal atrial fibrillation, COPD, osteoarthritis, obstructive sleep apnea, gout and she Zyvox and dependent and she has home O2. She is medically debilitated and she is a left and a walker. She is a resident of a [facility]. During her most recent hospitalization, the anemia was further worked up by EGD EGD showed mild gastritis. There was mild duodenitis. There was a small hiatal hernia. 06/06/2020, the patient remains intubated on a mechanical ventilator. The patient is currently sedated with propofol running at 40 g per KG per minute. The patient is requiring low-dose norepinephrine infusion for blood pressure sup port and this is running at 0.0 mg per KG per minute. The patient is receiving enteral feeding with vital high protein at the rate of 50 mL an hour. The patient has a fluoroscopy vent on the left lung. A total of 700 mL of fluid was aspirated yesterday. The fluid is a bit bloody and creamy and esophagus and there is a possibility of a chylothorax. The initial analysis came back as a transudate with a low LDH and low protein. The fluid triglycerides still pending for now. Meanwhile, the patient had a follow-up chest x-ray today that showed that the Thoravent is adequate location. There is some improved aeration left upper lobe. His volume loss in the left lung along with some ongoing consolidation of left lower lobe. The ET tube is in a good location. The patient has some cardiomegaly. The patient is currently on assist control mode of ventilation. The patient is on a assist-control of 20 with a rate of 20 and a tidal volume of 400 and FiO2 of 50% and a PEEP of 5. The pH is at 7.47 with a pCO2 of 35 and pO2 of 232. The patient's peak air pressure is around 30 to anesthetic pressures somewhat elevated this is secondary and this is secondary to extrapulmonary restriction with elevation of the anesthetic pressures. Adequate urine output. Lasix was given by nephrology to dose of 40 mg 1. There is some edema lower extremities. Fluid cytology from the left lung is still pending for now. On 06/07/20, patient remains in the ICU, intubated and mechanically ventilated. She is on assist control rate of 28, FiO2 is 40%, tidal volume is 400 and PEEP of 5. ABG showed a pO2 of 164 pCO2 of 36 and pH of 7.47. Patient remains sedated, on propofol at 20 mcg/kg/m, she is also on norepinephrine at 0.02 mcg/kg/m. Ventilator settings were changed to assist control rate of 24 and FiO2 was decreased down to 35%. Patient is in atrial fibrillation however her rate seems to be well-controlled. Continues to have a left sided chest tube/thoravent in place. Continues to have significant consolidation of the left lower lobe. Patient is now draining significantly yellow fluid possible chylothorax noted, triglycerides were ordered on the fluid. She also received a unit of packed RBCs today for hemoglobin of 6.7. That triglycerides level on the pleural effusion is pending. Patient was reevaluated today on 06/08/2020, remains in the ICU, intubated and mechanically ventilated. Patient is on assist control rate of 24 tidal volume is 400 FiO2 is 35% and PEEP of 5. ABG showed a pO2 of 60 pCO2 43 pH of 7.42, hence her FiO2 was increased to 40%. Patient remains on norepinephrine at 0.02 g/kg/m, she is off propofol this morning, and I plan to assess her mental status. According to the nurse the patient didn't follow simple instructions yesterday off propofol. Chest x-ray continues to show evidence of bibasilar opacities especially opacity over the left hemithorax, thoravent remains in place, however not draining, and there is no air leak. I plan to It, and possibly discontinue this in the next 24-48 hours. Review the results of her last bronchoscopy, blood cultures are nondiagnostic. Patient remains on TPN feeding, she is up to goal, patient remains on Lasix, she remains in atrial fibrillation with controlled rate. CBC showed a hemoglobin of 7 and electrolytes are normal renal profile is poor with BUN of 84 creatinine 3.29. Not much ticket dispenser changer the last 6 days. Blood cultures and sputum cultures as well as pleural effusion cultures are all negative. Triglycerides on the pleural effusion is still pending. Patient was reevaluated today on 06/09/20, remains in the intensive care unit, intubated and mechanically ventilated. Her ventilator settings are assist control rate of 24, tidal volume is 400 FiO2 is 40% and PEEP is 5 ABG showed a pO2 of 88 pCO2 of 45 pH of 7.41. Patient remains on norepinephrine at 2 mcg/m, off propofol this morning, awake, arousable, and follows simple instructions. Patient is in atrial fibrillation with a rate of 74, again blood pressure is marginal. Her urine output is about 40-100 mL/h, remains on Lasix. Chest x-ray continues to show significant opacity in the left lower lobe area, difficult to tell how much of this is fluid or how much of it is atelectasis. The chest tube is not draining anything at this point, and it is now Plan to remove it in the next 24 hours. Considering the patient is following instructions, I went ahead and recommended a trial of pressure support of 14 and CPAP. Renal functioning remains poor with a BUN of 88 creatinine 3.06. Electrolytes are normal. WBC co unt is 11.8 hemoglobin is 7.9. Objective - Vital Signs Vital signs: Vital Signs Temp 98.6 F 06/09/20 12:00 Pulse 98 06/09/20 13:00 Resp 22 06/09/20 13:00 BP 134/73 06/09/20 13:00 Pulse Ox 97 06/09/20 13:00 Intake & Output 06/08/20 06/09/20 06/09/20 18:59 06:59 18:59 Intake Total 5752.477 5547.320 543.216 Output Total 825 1010 320 Balance 620.849 265.320 223.216 Weight 206.8 kg 206.8 kg Intake: IV 252 202 196 0.9 pressure bag 72 72 36 Piperacillin-Tazobactam 3 100 100 .375 gm In Sodium Chloride 0.9% 100 ml @ 25 mls/hr IVPB Q12HR [facility] Rx #:[id number] Sodium Chloride 0.9% 1, 180 30 60 000 ml @ 50 mls/hr IV . Q20H [facility] Rx#:[id number] Intake, IV Titration 248.849 203.320 32.216 Amount Norepinephrine 32 mg In 48.849 14.571 Sodium Chloride 0.9% 218 ml @ 0.05 MCG/KG/MIN 4. 784 mls/hr IV .Q24H [facility] Rx#:[id number] propofoL 1,000 mg In 200 188.749 32.216 Empty Bag 1 bag @ Titrate IV .Q0M [facility] Rx#: [id number] Tube Feeding 780 780 195 Other 165 90 120 Output: Chest Tube Drainage 0 Left Upper Anterior Chest 0 Urine 825 1010 320 Other: Voiding Method Indwelling Catheter Indwelling Catheter Indwelling Catheter ABP, PAP, CO, CI - Last Documented Arterial Blood Pressure 113/55 - Exam Very pleasant 70-year-old female patient, morbidly obesity remains on mechanical ventilation.. Head exam atraumatic, normocephalic. Endotracheal tube and orogastric tubes are intact. Neck is supple and without jugular venous distension, thyromegaly, or carotid bruits. Carotids were easily palpable bilaterally. Cardiac exam distant S1 and S2, no S3 gallop, no murmur could be appreciated. Lungs symmetrical chest expansion, diminished breath sounds on the left side, left sided thoravent is noted. At present. Abdominal exam revealed morbidly obese, nontender, no megaly, no rebound Examination of the extremities revealed bipedal edema, diminished distal pulses bilaterally. Examination of the skin revealed no evidence of significant rashes, Neurologically, arousable, generally weak, follows simple instructions. Psychiatric blunted mood and affect. - Labs CBC & Chem 7: 06/09/20 04:15 06/09/20 04:15 Labs: Abnormal Lab Results - Last 24 Hours (Table) 06/08/20 06/09/20 06/09/20 Range/Units 17:51 04:15 04:15 WBC 11.8 H (3.8-10.6) k/uL RBC 2.85 L (3.80-5.40) m/uL Hgb 7.9 L (11.4-16.0) gm/dL Hct 27.4 L (34.0-46.0) % MCHC 28.7 L (31.0-37.0) g/dL RDW 18.4 H (11.5-15.5) % Plt Count 87 L (150-450) k/uL ABG HCO3 (21-25) mmol/L ABG Total CO2 (19-24) mmol/L ABG O2 Saturation (94-97) % Chloride 108 H (98-107) mmol/L BUN 88 H (7-17) mg/dL Creatinine 3.06 H (0.52-1.04) mg/dL Glucose 110 H (74-99) mg/dL POC Glucose (mg/dL) 127 H (75-99) mg/dL Calcium 8.3 L (8.4-10.2) mg/dL Total Protein 5.5 L (6.3-8.2) g/dL Albumin 2.5 L (3.5-5.0) g/dL 06/09/20 06/09/20 Range/Units 07:28 11:32 WBC (3.8-10.6) k/uL RBC (3.80-5.40) m/uL Hgb (11.4-16.0) gm/dL Hct (34.0-46.0) % MCHC (31.0-37.0) g/dL RDW (11.5-15.5) % Plt Count (150-450) k/uL ABG HCO3 29 H (21-25) mmol/L ABG Total CO2 30 H (19-24) mmol/L ABG O2 Saturation 97.3 H (94-97) % Chloride (98-107) mmol/L BUN (7-17) mg/dL Creatinine (0.52-1.04) mg/dL Glucose (74-99) mg/dL POC Glucose (mg/dL) 134 H (75-99) mg/dL Calcium (8.4-10.2) mg/dL Total Protein (6.3-8.2) g/dL Albumin (3.5-5.0) g/dL Microbiology - Last 24 Hours (Table) 06/04/20 18:57 Gram Stain - Final Pleural Fluid Body Fluid Culture - Final 06/02/20 14:23 Blood Culture - Final Blood No Growth after 144 hours Assessment and Plan Assessment: Impression: Acute on chronic hypoxic respiratory failure, presented with complete opacification of the left lung and large left-sided pleural effusion, transudative in nature, however the color of the fluid today is suspicious for possible chylothorax. Triglycerides on the fluid are pending. Cytology on the fluid is negative. Acute left lower lobe pneumonia and possible septic shock on presentation. Morbid obesity with BMI of 74.2. Chronic hypoxic respiratory failure, normally on 2 L nasal cannula. Chronic kidney disease stage IV Chronic gastritis. Chronic diastolic congestive heart failure. Anemia of chronic kidney disease. Nonalcoholic fatty liver disease. COPD, ex-smoker. Presently inactive. Medical debility, patient is bed bound Chronic gout. Obstructive sleep apnea syndrome. Recommendation: Continue ventilatory support. However the patient will be given a trial of weaning with a pressure support of 14 and CPAP. Discontinue propofol and titrate the norepinephrine down to maintain a mean arterial pressure above 60. Avani the chest tube was done. Continue antibiotics empirically. Continue enteral feeding. Continue hemodynamic support. Still believe the patient will likely be extremely difficult to wean and ex tubate. Prognosis is extremely poor and guarded. Patient is critically ill. Critical care time is 32 minutes Time with Patient: Greater than 30
[2020-06-09 16:10] LABS: ABG Base Excess 3.3 mmol/L; ABG HCO3 29 mmol/L (21-25); ABG Oxygen Saturation 98.8 % (94-97); ABG PCO2 50 mmHg (35-45); ABG PH 7.37 (7.35-7.45); ABG PO2 112 mmHg (83-108); ABG TCO2 30 mmol/L (19-24); Allen Test Performed? Yes
[2020-06-09] MEDS: CHOLECALCIFEROL 1,000 UNIT TAB PO SCH (16:38)
[2020-06-09 17:42] LABS: Glucose,Whole Blood 117 mg/dL (75-99)
[2020-06-09] MEDS: TRIAMCINOLONE 0.1% CREAM 80 GM TUBE TOPICAL SCH ×2 (19:31→22:12)
[2020-06-09 20:41] LABS: ABG Base Excess 3.5 mmol/L; ABG HCO3 29 mmol/L (21-25); ABG Oxygen Saturation 98.8 % (94-97); ABG PCO2 55 mmHg (35-45); ABG PH 7.34 (7.35-7.45); ABG PO2 113 mmHg (83-108); ABG TCO2 31 mmol/L (19-24); Allen Test Performed? Yes
[2020-06-09] MEDS: ATORVASTATIN 40 MG TAB PO SCH (21:36)
[2020-06-09] MEDS: FUROSEMIDE 10 MG/ML 10 ML VIAL IV SCH (22:15)
[2020-06-10 00:07] LABS: Glucose,Whole Blood 97 mg/dL (75-99)
--- NOTE | 2020-06-10 00:13 | P.PN ---
Subjective Progress Note Date: 06/08/20 Principal diagnosis: fluid overload This is a pleasant 70-year-old patient was chronic stable medical conditions include CHF EF 55 and 55%, morbid obesity, chronic kidney disease stage IV secondary to nephrosclerosis, renal bone disease, anemia of chronic kidney disease, persistent atrial fibrillation, fatty liver, COPD, primary osteoarthritis, obstructive sleep apnea, chronic gout, on home oxygen, chronic medical debility at her baseline uses a lift a wheelchair. Patient is a resident at [facility]. Patient presents with increasing swelling about a week. Increase in shortness of breath. Appetite is okay. Bowel movements are okay. No fever no chills. Started on IV Lasix. Admitted with CHF exacerbation. Put on IV Lasix. On June 04 -was taken to for thoracentesis and it was a bit difficult by IR. Patient went into PEA cardiac arrest. intubated. Hypotensive. Moved to ICU. Thora-vent was placed. About 850 mL of pus-bloody fluid was obtained. [id number]-[id number]. On the ventilator. Telemetry shows sinus rhythm. Left chest tube to suction. On IV levo fed and propofol. Tube feeding. Granddaughter at the bedside. 06/08/2020 Patient is currently mechanical ventilator and is being monitored in the ICU. Sedated. low dose levophed. Chest x-ray showed cardiomegaly with central vascular congestion and small to moderate sized bilateral pleural fluid collections with the left sided pleural drainage catheter. Bronchial fluid cultures negative so far. Laboratory data showed WBC 8.2, hemoglobin 7.0 and platelets 87 BUN 84 and creatinine 3.29 Albumin 2.2 Review of systems: Patient intubated Active Medications Acetaminophen (Tylenol Tab) 650 mg PO Q4H PRN PRN Reason: Pain or Fever > 100.5 Acetaminophen/Codeine Phosphate (Tylenol #3) 1 each PO TID PRN PRN Reason: Pain Last Admin: 06/04/20 01:23 Dose: 1 each Documented by: Albuterol/Ipratropium (Duoneb 0.5 Mg-3 Mg/3 Ml Soln) 3 ml INHALATION RT-QID [facility] Last Admin: 06/07/20 20:43 Dose: 3 ml Documented by: Allopurinol (Zyloprim) 100 mg PO DAILY@0800 [facility] Last Admin: 06/07/20 08:26 Dose: 100 mg Documented by: Aspirin (Aspirin) 81 mg PO DAILY@1200 [facility] Last Admin: 06/07/20 11:36 Dose: 81 mg Documented by: Atorvastatin Calcium (Lipitor) 40 mg PO HS@2100 [facility] Last Admin: 06/07/20 21:46 Dose: 40 mg Documented by: Bisacodyl (Dulcolax) 10 mg RECTAL DAILY PRN PRN Reason: Constipation Last Admin: 06/03/20 10:28 Dose: 10 mg Documented by: Calcitriol (Rocaltrol) 0.25 mcg PO DAILY@1700 [facility] Last Admin: 06/07/20 17:19 Dose: Not Given Documented by: Calcium Acetate (Phoslo) 667 mg PO DAILY@0800 [facility] Last Admin: 06/07/20 08:25 Dose: 667 mg Documented by: Chlorhexidine Gluconate (Peridex) 15 ml MUCOUS MEM BID [facility] Last Admin: 06/07/20 21:46 Dose: 15 ml Documented by: Cholecalciferol (Vitamin D3 (25 Mcg = 1000 Iu)) 2,000 unit PO DAILY@1700 [facility] Last Admin: 06/07/20 17:19 Dose: 2,000 unit Documented by: Darbepoetin Juan Jose (Aranesp) 60 mcg SQ TH [facility] Last Admin: 06/03/20 15:58 Dose: 60 mcg Documented by: Folic Acid (Folic Acid) 1 mg PO DAILY@1200 [facility] Last Admin: 06/07/20 11:36 Dose: 1 mg Documented by: Furosemide (Lasix) 40 mg IV DAILY [facility] Last Admin: 06/07/20 10:28 Dose: 40 mg Documented by: Propofol 1,000 mg/ IV Solution 100 mls @ 0 mls/hr IV .Q0M [facility]; Protocol Last Admin: 06/07/20 23:02 Dose: 20 mcg/kg/min, 24.624 mls/hr Documented by: Norepinephrine Bitartrate 32 (mg/ Sodium Chloride) 250 mls @ 4.784 mls/hr IV .Q24H [facility]; Protocol Last Titration: 06/07/20 18:49 Dose: 0.02 mcg/kg/min, 1.913 mls/hr Documented by: Piperacillin Sod/Tazobactam (Sod 3.375 gm/ Sodium Chloride) 100 mls @ 25 mls/hr IVPB Q12HR [facility] Last Admin: 06/07/20 21:46 Dose: 25 mls/hr Documented by: Insulin Aspart (Novolog) 0 unit SQ Q6H [facility]; Protocol Last Admin: 06/07/20 17:51 Dose: Not Given Documented by: Lactulose (Cephulac) 10 gm PO BID PRN PRN Reason: Constipation Loratadine (Claritin) 10 mg PO Q48H PRN PRN Reason: Allergy Symptoms Magnesium Hydroxide (Milk Of Magnesia) 2,400 mg PO DAILY PRN PRN Reason: Constipation Metoprolol Tartrate (Lopressor) 25 mg PO BID@0800,1700 [facility] Last Admin: 06/07/20 17:19 Dose: 25 mg Documented by: Midodrine (Proamatine) 5 mg PO AC-TID [facility] Last Admin: 06/07/20 17:19 Dose: 5 mg Documented by: Non-Formulary Medication (Linaclotide [Linzess]) 145 mcg PO DAILY@0800 [facility] Last Admin: 06/07/20 08:20 Dose: Not Given Documented by: Ondansetron HCl (Zofran) 4 mg IVP Q6HR PRN PRN Reason: Nausea And Vomiting Last Admin: 06/04/20 05:36 Dose: 4 mg Documented by: Senna (Senokot) 8.6 - 17.2 mg PO HS PRN PRN Reason: Constipation Last Admin: 06/03/20 10:28 Dose: 17.2 mg Documented by: Triamcinolone Acetonide (Kenalog) 1 applic TOPICAL BID [facility] Last Admin: 06/07/20 21:47 Dose: 1 applic Documented by: Objective - Vital Signs Vital signs: Vital Signs Temp 96 F L 06/08/20 20:00 Pulse 60 06/08/20 20:00 Resp 24 06/08/20 20:00 BP 134/73 06/08/20 14:45 Pulse Ox 99 06/08/20 20:00 Intake & Output 06/08/20 06/08/20 06/09/20 06:59 18:59 06:59 Intake Total 6927.597 6234.849 290.749 Output Total 1020 825 150 Balance 165.236 620.849 140.749 Weight 205.2 kg Intake: IV 292 252 42 0.9 pressure bag 72 72 12 Piperacillin-Tazobactam 3 100 .375 gm In Sodium Chloride 0.9% 100 ml @ 25 mls/hr IVPB Q12HR [facility] Rx #:[id number] Sodium Chloride 0.9% 1, 120 180 30 000 ml @ 50 mls/hr IV . Q20H [facility] Rx#:[id number] Intake, IV Titration 188.236 248.849 88.749 Amount Norepinephrine 32 mg In 48.849 Sodium Chloride 0.9% 218 ml @ 0.05 MCG/KG/MIN 4. 784 mls/hr IV .Q24H [facility] Rx#:[id number] propofoL 1,000 mg In 188.236 200 88.749 Empty Bag 1 bag @ Titrate IV .Q0M [facility] Rx#: [id number] Tube Feeding 585 780 130 Other 120 165 30 Output: Urine 1020 825 150 Other: Voiding Method Indwelling Catheter Indwelling Catheter Indwelling Catheter ABP, PAP, CO, CI - Last Documented Arterial Blood Pressure 112/60 - Exam GENERAL: Laying in bed, intubated EYES: Pupils equal. Conjunctiva normal. HEENT: External appearance of nose and ears normal, oral cavity-endotracheal tub e NECK: JVD unable to assess masses not palpable. HEART: First and second heart sounds are normal; no edema. LUNGS: Respiratory rate increased, distant breath [id number] chest tube ABDOMEN: Soft, nontender, liver spleen not palpable, no masses palpable. PSYCH: Sedated MUSCULAR skeletal: [place] - Labs CBC & Chem 7: 06/09/20 04:15 06/09/20 04:15 Labs: Abnormal Lab Results - Last 24 Hours (Table) 06/08/20 06/08/20 06/08/20 Range/Units 04:45 04:45 05:45 RBC 2.58 L (3.80-5.40) m/uL Hgb 7.0 L (11.4-16.0) gm/dL Hct 24.4 L (34.0-46.0) % MCHC 28.5 L (31.0-37.0) g/dL RDW 19.0 H (11.5-15.5) % Plt Count 87 L (150-450) k/uL ABG pO2 (83-108) mmHg ABG HCO3 (21-25) mmol/L ABG Total CO2 (19-24) mmol/L ABG O2 Saturation (94-97) % Chloride 108 H (98-107) mmol/L BUN 84 H (7-17) mg/dL Creatinine 3.29 H (0.52-1.04) mg/dL POC Glucose (mg/dL) 114 H (75-99) mg/dL Calcium 8.3 L (8.4-10.2) mg/dL Total Protein 4.9 L (6.3-8.2) g/dL Albumin 2.2 L (3.5-5.0) g/dL 06/08/20 06/08/20 06/08/20 Range/Units 07:40 11:38 17:51 RBC (3.80-5.40) m/uL Hgb (11.4-16.0) gm/dL Hct (34.0-46.0) % MCHC (31.0-37.0) g/dL RDW (11.5-15.5) % Plt Count (150-450) k/uL ABG pO2 60 L (83-108) mmHg ABG HCO3 28 H (21-25) mmol/L ABG Total CO2 29 H (19-24) mmol/L ABG O2 Saturation 90.6 L (94-97) % Chloride (98-107) mmol/L BUN (7-17) mg/dL Creatinine (0.52-1.04) mg/dL POC Glucose (mg/dL) 132 H 127 H (75-99) mg/dL Calcium (8.4-10.2) mg/dL Total Protein (6.3-8.2) g/dL Albumin (3.5-5.0) g/dL Microbiology - Last 24 Hours (Table) 06/04/20 18:57 Gram Stain - Final Pleural Fluid Body Fluid Culture - Final 06/02/20 14:23 Blood Culture - Final Blood No Growth after 144 hours Assessment and Plan Assessment: -s/p Cardiac arrest with PEA -Acute hypoxic, hypercapnic respiratory failure-requiring ventilator support-slow to respond -Hypotensive shock requiring pressor support. possibe Septic shock due to Pneumonia -Acute on Chronic congestive heart failure from diastolic dysfunction EF 55-60% -Left pleural effusion 850 mL of fluid evacuated with Thora-vent now with the chest tube-slow to respond - Acute kidney injury secondary to ATN secondary to cardiac arrest/hemodynamic instability. -Chronic kidney disease stage IV secondary to nephrosclerosis with some worsening -Morbid obesity BMI 75.2 -Chronic kidney disease renal bone disease -Anemia of chronic kidney disease -Persistent atrial fibrillation, rate controlled Nonalcoholic fatty liver disease -COPD in an ex-smoker -Primary osteoarthritis -Obstructive sleep apnea -Chronic gout -Chronic hypoxic respiratory failure from COPD -Chronic medical debility and a baseline patient does use a lift to a wheelchair -Thoracentesis with the Thora-vent in place Plan: remains on the ventilator, on propofol at levo fed. Antibodies include IV Zosyn. Other medications to continue. Prognosis guarded. Time with Patient: Greater than 30
[2020-06-10] MEDS: INSULIN ASPART (NovoLOG) 100 UNIT/ML VIAL SQ SCH ×4 (00:14→18:31)
--- NOTE | 2020-06-10 00:15 | P.PN ---
Subjective Progress Note Date: 06/09/20 Principal diagnosis: fluid overload This is a pleasant 70-year-old patient was chronic stable medical conditions include CHF EF 55 and 55%, morbid obesity, chronic kidney disease stage IV secondary to nephrosclerosis, renal bone disease, anemia of chronic kidney disease, persistent atrial fibrillation, fatty liver, COPD, primary osteoarthritis, obstructive sleep apnea, chronic gout, on home oxygen, chronic medical debility at her baseline uses a lift a wheelchair. Patient is a resident at [facility]. Patient presents with increasing swelling about a week. Increase in shortness of breath. Appetite is okay. Bowel movements are okay. No fever no chills. Started on IV Lasix. Admitted with CHF exacerbation. Put on IV Lasix. On June 04 -was taken to for thoracentesis and it was a bit difficult by IR. Patient went into PEA cardiac arrest. intubated. Hypotensive. Moved to ICU. Thora-vent was placed. About 850 mL of pus-bloody fluid was obtained. [id number]. On the ventilator. Telemetry shows sinus rhythm. Left chest tube to suction. On IV levo fed and propofol. Tube feeding. Granddaughter at the bedside. 06/08/2020 Patient is currently mechanical ventilator and is being monitored in the ICU. Sedated. low dose levophed. Chest x-ray showed cardiomegaly with central vascular congestion and small to moderate sized bilateral pleural fluid collections with the left sided pleural drainage catheter. Bronchial fluid cultures negative so far. Laboratory data showed WBC 8.2, hemoglobin 7.0 and platelets 87 BUN 84 and creatinine 3.29 Albumin 2.2 06/09/2020 Patient remains on ventilator and is currently sedated. Patient is also on Levophed drip. Chest x-ray showed suspect some improvement in patient's volume status. There may be basilar effusions. Atelectasis, difficult to exclude pneumonia. Patient does have chest tube with minimal drainage. Laboratory data showed WBC 11.8, hemoglobin 7.9 and platelets 87 BUN 88 and creatinine 3.06 Pulmonary and nephrology is on board. Review of systems: Patient intubated Active Medications Acetaminophen (Tylenol Tab) 650 mg PO Q4H PRN PRN Reason: Pain or Fever > 100.5 Acetaminophen/Codeine Phosphate (Tylenol #3) 1 each PO TID PRN PRN Reason: Pain Last Admin: 06/04/20 01:23 Dose: 1 each Documented by: Albuterol/Ipratropium (Duoneb 0.5 Mg-3 Mg/3 Ml Soln) 3 ml INHALATION RT-QID [facility] Last Admin: 06/09/20 19:48 Dose: 3 ml Documented by: Allopurinol (Zyloprim) 100 mg PO DAILY@0800 [facility] Last Admin: 06/09/20 09:17 Dose: 100 mg Documented by: Aspirin (Aspirin) 81 mg PO DAILY@1200 [facility] Last Admin: 06/09/20 13:12 Dose: 81 mg Documented by: Atorvastatin Calcium (Lipitor) 40 mg PO HS@2100 [facility] Last Admin: 06/09/20 21:36 Dose: Not Given Documented by: Bisacodyl (Dulcolax) 10 mg RECTAL DAILY PRN PRN Reason: Constipation Last Admin: 06/03/20 10:28 Dose: 10 mg Documented by: Calcitriol (Rocaltrol) 0.25 mcg PO DAILY@1700 [facility] Last Admin: 06/09/20 16:38 Dose: 0.25 mcg Documented by: Calcium Acetate (Phoslo) 667 mg PO DAILY@0800 [facility] Last Admin: 06/09/20 09:16 Dose: 667 mg Documented by: Chlorhexidine Gluconate (Peridex) 15 ml MUCOUS MEM BID [facility] Last Admin: 06/09/20 22:15 Dose: 15 ml Documented by: Cholecalciferol (Vitamin D3 (25 Mcg = 1000 Iu)) 2,000 unit PO DAILY@1700 [facility] Last Admin: 06/09/20 16:38 Dose: 2,000 unit Documented by: Darbepoetin Juan Jose (Aranesp) 60 mcg SQ TH [facility] Last Admin: 06/03/20 15:58 Dose: 60 mcg Documented by: Folic Acid (Folic Acid) 1 mg PO DAILY@1200 [facility] Last Admin: 06/09/20 13:12 Dose: 1 mg Documented by: Furosemide (Lasix) 60 mg IV BID [facility] Last Admin: 06/09/20 22:15 Dose: 60 mg Documented by: Norepinephrine Bitartrate 32 (mg/ Sodium Chloride) 250 mls @ 4.784 mls/hr IV . Q24H [facility]; Protocol Last Titration: 06/09/20 19:30 Dose: 0 mcg/kg/min, 0 mls/hr Documented by: Piperacillin Sod/Tazobactam (Sod 3.375 gm/ Sodium Chloride) 100 mls @ 25 mls/hr IVPB Q12HR [facility] Last Admin: 06/09/20 22:15 Dose: 25 mls/hr Documented by: Sodium Chloride (Saline 0.9%) 1,000 mls @ 20 mls/hr IV .Q24H [facility] Last Admin: 06/09/20 08:00 Dose: 20 mls/hr Documented by: Insulin Aspart (Novolog) 0 unit SQ Q6H [facility]; Protocol Last Admin: 06/09/20 17:42 Dose: Not Given Documented by: Lactulose (Cephulac) 10 gm PO BID PRN PRN Reason: Constipation Last Admin: 06/08/20 20:30 Dose: 10 gm Documented by: Loratadine (Claritin) 10 mg PO Q48H PRN PRN Reason: Allergy Symptoms Magnesium Hydroxide (Milk Of Magnesia) 2,400 mg PO DAILY PRN PRN Reason: Constipation Midodrine (Proamatine) 5 mg PO AC-TID [facility] Last Admin: 06/09/20 16:38 Dose: 5 mg Documented by: Non-Formulary Medication (Linaclotide [Linzess]) 145 mcg PO DAILY@0800 [facility] Last Admin: 06/09/20 09:17 Dose: Not Given Documented by: Ondansetron HCl (Zofran) 4 mg IVP Q6HR PRN PRN Reason: Nausea And Vomiting Last Admin: 06/04/20 05:36 Dose: 4 mg Documented by: Senna (Senokot) 8.6 - 17.2 mg PO HS PRN PRN Reason: Constipation Last Admin: 06/08/20 20:30 Dose: 8.6 mg Documented by: Triamcinolone Acetonide (Kenalog) 1 applic TOPICAL BID [facility] Last Admin: 06/09/20 22:12 Dose: Not Given Documented by: Objective - Vital Signs Vital signs: Vital Signs Temp 98.1 F 06/09/20 20:00 Pulse 77 06/09/20 22:00 Resp 15 06/09/20 22:00 BP 134/73 06/09/20 13:00 Pulse Ox 99 06/09/20 22:00 Intake & Output 06/09/20 06/09/20 06/10/20 06:59 18:59 06:59 Intake Total 4848.191 1268.534 109.98 Output Total 1010 605 295 Balance 265.320 661.534 -185.02 Weight 206.8 kg 206.8 kg Intake: IV 202 326 44 0.9 pressure bag 72 66 24 Piperacillin-Tazobactam 3 100 100 .375 gm In Sodium Chloride 0.9% 100 ml @ 25 mls/hr IVPB Q12HR [facility] Rx #:[id number] Sodium Chloride 0.9% 1, 0 000 ml @ 20 mls/hr IV . Q24H [facility] Rx#:[id number] Sodium Chloride 0.9% 1, 30 160 20 000 ml @ 50 mls/hr IV . Q20H [facility] Rx#:[id number] Intake, IV Titration 203.320 45.534 0.98 Amount Norepinephrine 32 mg In 14.571 13.318 0.98 Sodium Chloride 0.9% 218 ml @ 0.05 MCG/KG/MIN 4. 784 mls/hr IV .Q24H [facility] Rx#:[id number] propofoL 1,000 mg In 188.749 32.216 Empty Bag 1 bag @ Titrate IV .Q0M [facility] Rx#: [id number] Tube Feeding 780 715 65 Other 90 180 0 Output: Chest Tube Drainage 0 Left Upper Anterior Chest 0 Urine 1010 605 295 Other: Voiding Method Indwelling Catheter Indwelling Catheter Indwelling Catheter ABP, PAP, CO, CI - Last Documented Arterial Blood Pressure 106/46 - Exam GENERAL: Laying in bed, intubated EYES: Pupils equal. Conjunctiva normal. HEENT: External appearance of nose and ears normal, oral cavity-endotracheal tube NECK: JVD unable to assess masses not palpable. HEART: First and second heart sounds are normal; no edema. LUNGS: Respiratory rate increased, distant breath [id number] chest tube ABDOMEN: Soft, nontender, liver spleen not palpable, no masses palpable. PSYCH: Sedated MUSCULAR skeletal: [place] - Labs CBC & Chem 7: 06/09/20 04:15 06/09/20 04:15 Labs: Abnormal Lab Results - Last 24 Hours (Table) 06/09/20 06/09/20 06/09/20 Range/Units 04:15 04:15 07:28 WBC 11.8 H (3.8-10.6) k/uL RBC 2.85 L (3.80-5.40) m/uL Hgb 7.9 L (11.4-16.0) gm/dL Hct 27.4 L (34.0-46.0) % MCHC 28.7 L (31.0-37.0) g/dL RDW 18.4 H (11.5-15.5) % Plt Count 87 L (150-450) k/uL ABG pH (7.35-7.45) ABG pCO2 (35-45) mmHg ABG pO2 (83-108) mmHg ABG HCO3 29 H (21-25) mmol/L ABG Total CO2 30 H (19-24) mmol/L ABG O2 Saturation 97.3 H (94-97) % Chloride 108 H (98-107) mmol/L BUN 88 H (7-17) mg/dL Creatinine 3.06 H (0.52-1.04) mg/dL Glucose 110 H (74-99) mg/dL POC Glucose (mg/dL) (75-99) mg/dL Calcium 8.3 L (8.4-10.2) mg/dL Total Protein 5.5 L (6.3-8.2) g/dL Albumin 2.5 L (3.5-5.0) g/dL 06/09/20 06/09/20 06/09/20 Range/Units 11:32 16:05 17:40 WBC (3.8-10.6) k/uL RBC (3.80-5.40) m/uL Hgb (11.4-16.0) gm/dL Hct (34.0-46.0) % MCHC (31.0-37.0) g/dL RDW (11.5-15.5) % Plt Count (150-450) k/uL ABG pH (7.35-7.45) ABG pCO2 50 H (35-45) mmHg ABG pO2 112 H (83-108) mmHg ABG HCO3 29 H (21-25) mmol/L ABG Total CO2 30 H (19-24) mmol/L ABG O2 Saturation 98.8 H (94-97) % Chloride (98-107) mmol/L BUN (7-17) mg/dL Creatinine (0.52-1.04) mg/dL Glucose (74-99) mg/dL POC Glucose (mg/dL) 134 H 117 H (75-99) mg/dL Calcium (8.4-10.2) mg/dL Total Protein (6.3-8.2) g/dL Albumin (3.5-5.0) g/dL 06/09/20 Range/Units 20:34 WBC (3.8-10.6) k/uL RBC (3.80-5.40) m/uL Hgb (11.4-16.0) gm/dL Hct (34.0-46.0) % MCHC (31.0-37.0) g/dL RDW (11.5-15.5) % Plt Count (150-450) k/uL ABG pH 7.34 L (7.35-7.45) ABG pCO2 55 H (35-45) mmHg ABG pO2 113 H (83-108) mmHg ABG HCO3 29 H (21-25) mmol/L ABG Total CO2 31 H (19-24) mmol/L ABG O2 Saturation 98.8 H (94-97) % Chloride (98-107) mmol/L BUN (7-17) mg/dL Creatinine (0.52-1.04) mg/dL Glucose (74-99) mg/dL POC Glucose (mg/dL) (75-99) mg/dL Calcium (8.4-10.2) mg/dL Total Protein (6.3-8.2) g/dL Albumin (3.5-5.0) g/dL Microbiology - Last 24 Hours (Table) 06/04/20 18:57 Gram Stain - Final Pleural Fluid Body Fluid Culture - Final Assessment and Plan Assessment: -s/p Cardiac arrest with PEA -Acute hypoxic, hypercapnic respiratory failure-requiring ventilator support- slow to respond -Hypotensive shock requiring pressor support. possibe Septic shock due to Pneumonia -Acute on Chronic congestive heart failure from diastolic dysfunction EF 55-60% -Left pleural effusion 850 mL of fluid evacuated with Thora-vent now with the chest tube-slow to respond - Acute kidney injury secondary to ATN secondary to cardiac arrest/hemodynamic instability. -Chronic kidney disease stage IV secondary to nephrosclerosis with some worsening -Morbid obesity BMI 75.2 -Chronic kidney disease renal bone disease -Anemia of chronic kidney disease -Persistent atrial fibrillation, rate controlled Nonalcoholic fatty liver disease -COPD in an ex-smoker -Primary osteoarthritis -Obstructive sleep apnea -Chronic gout -Chronic hypoxic respiratory failure from COPD -Chronic medical debility and a baseline patient does use a lift to a wheelchair -Thoracentesis with the Thora-vent in place Plan: remains on the ventilator, on propofol at levo fed. Antibodies include IV Zosyn. Other medications to continue. Prognosis guarded. Time with Patient: Greater than 30
[2020-06-10 04:44] LABS: Anisocytosis Slight; HGB 7.3 gm/dL (11.4-16.0); Hypochromasia Marked; MCH 27.5 pg (25.0-35.0); MCHC 28.1 g/dL (31.0-37.0); MCV 98.1 fL (80.0-100.0); Macrocytosis Slight; Mean Platelet Volume 9.2; Poikilocytosis Moderate; RBC 2.65 m/uL (3.80-5.40); RDW 18.2 % (11.5-15.5); WBC 13.2 k/uL (3.8-10.6)
[2020-06-10 04:46] LABS: Platelet Count 83 k/uL (150-450)
[2020-06-10 04:53] LABS: Albumin 2.7 g/dL (3.5-5.0); Calcium 8.6 mg/dL (8.4-10.2); Total Bilirubin 0.8 mg/dL (0.2-1.3); Total Protein 5.8 g/dL (6.3-8.2)
[2020-06-10 04:54] LABS: Potassium 4.9 mmol/L (3.5-5.1)
[2020-06-10] MEDS: NOREPINEPHRINE 32 MG in SODIUM CHLORIDE 0.9% 218 ML IV SCH ×2 (06:49→18:30)
[2020-06-10] MEDS: IPRATROPIUM-ALBUTEROL 3 ML NEB INHALATION SCH ×4 (08:16→19:36)
--- NOTE | 2020-06-10 08:18 | XR ---
EXAMINATION TYPE: XR chest 1V portable DATE OF EXAM: 06/10/2020 Comparison: 06/09/2020 Clinical History: 70-year-old female Tube placement Findings: Patient is significantly rotated towards the left altering the normal cardiac and mediastinal contour s. There seems to be now complete white out of the left hemithorax. Rotation limits assessment for th e degree of volume loss in the left hemithorax. Small right effusion and motion artifact at the right base. Left-sided Thoravent is present. Left IJ CVC tip in the expected region of the lower SVC or cavoatria l junction. IMPRESSION: 1. Interval extubation. Rotated exam but with complete whiteout now noted of the left hemithorax. The rotation makes it difficult to determine the degree of volume loss in the left hemithorax. 2. A left-sided Thoravent remains in place. 3. Continued small right effusion.
[2020-06-10] MEDS: PIPERACILLIN-TAZOBACTAM 3.375 GM in SODIUM CHLORIDE 0.9% 100 ML IVPB SCH ×2 (09:36→23:13)
[2020-06-10] MEDS: CALCIUM ACETATE 667 MG TAB PO SCH ×2 (09:36→15:28)
[2020-06-10] MEDS: MIDODRINE 5 MG TAB PO SCH ×4 (09:36→18:30)
[2020-06-10] MEDS: allopurinoL 100 MG TAB PO SCH (09:36)
[2020-06-10] MEDS: CHLORHEXIDINE GLUCONATE 15 ML CUP MUCOUS MEM SCH (09:37)
[2020-06-10] MEDS: NON FORMULARY DRUG (Linaclotide [Linzess] 145 MCG) PO SCH (09:37)
[2020-06-10] MEDS: FUROSEMIDE 10 MG/ML 10 ML VIAL IV SCH ×2 (09:37→23:14)
[2020-06-10] MEDS: TRIAMCINOLONE 0.1% CREAM 80 GM TUBE TOPICAL SCH ×2 (09:38→23:15)
--- NOTE | 2020-06-10 09:59 | XR ---
EXAMINATION TYPE: XR chest 1V portable DATE OF EXAM: 06/10/2020 Comparison: Earlier today Clinical History: 70-year-old female follow-up to thoravent Findings: Left-sided event redemonstrated. Left IJ CVC tip at the lower SVC/cavoatrial junction region. Continu ed white out of the left hemithorax with slight volume loss. Possible trace right effusion. Impression: Continued complete white out of the left hemithorax. A left-sided Thoravent is in place. There is sli ght volume loss in the left hemithorax.
--- NOTE | 2020-06-10 10:46 | P.PN ---
Subjective Patient is seen in follow-up for acute kidney injury on chronic kidney disease. Renal function stable. Urine output 50-100 mL an hour. Patient had PEA arrest on June 04 and received 1 dose of epinephrine. Extubated June 09. Currently on BiPAP. Noted to have pneumothorax and has a thoravent in place. Status post blood transfusion on June 07. Hemoglobin 7.3 today. Off vasopressors. Vital signs are stable. Currently on Levophed. General: The patient appeared well nourished and normally developed. HEENT: Head exam is unremarkable. Neck is without jugular venous distension. Intubated. LUNGS: Breath sounds decreased. HEART: Regular rhythm. ABDOMEN: Soft, nontender. Obese. EXTREMITITES: 3+ edema. Chronic changes noted. Objective - Vital Signs Vital signs: Vital Signs Temp 96.5 F L 06/10/20 08:00 Pulse 76 06/10/20 10:00 Resp 18 06/10/20 10:00 BP 134/73 06/10/20 06:00 Pulse Ox 100 06/10/20 10:00 Intake & Output 06/09/20 06/10/20 06/10/20 18:59 06:59 18:59 Intake Total 1266.534 377.98 204 Output Total 605 1165 280 Balance 661.534 -787.02 -76 Weight 206.8 kg 203.618 kg Intake: IV 326 312 204 0.9 pressure bag 66 72 24 Piperacillin-Tazobactam 3 100 100 .375 gm In Sodium Chloride 0.9% 100 ml @ 25 mls/hr IVPB Q12HR [facility] Rx #:[id number] Sodium Chloride 0.9% 1, 220 80 000 ml @ 20 mls/hr IV . Q24H [facility] Rx#:[id number] Sodium Chloride 0.9% 1, 160 20 000 ml @ 50 mls/hr IV . Q20H [facility] Rx#:[id number] Intake, IV Titration 45.534 0.98 Amount Norepinephrine 32 mg In 13.318 0.98 Sodium Chloride 0.9% 218 ml @ 0.05 MCG/KG/MIN 4. 784 mls/hr IV .Q24H [facility] Rx#:[id number] propofoL 1,000 mg In 32.216 Empty Bag 1 bag @ Titrate IV .Q0M [facility] Rx#: [id number] Tube Feeding 715 65 Other 180 0 Output: Chest Tube Drainage 0 0 Left Upper Anterior Chest 0 0 Urine 605 1165 280 Other: Voiding Method Indwelling Catheter Indwelling Catheter ABP, PAP, CO, CI - Last Documented Arterial Blood Pressure 111/52 - Labs CBC & Chem 7: 06/10/20 04:30 06/10/20 04:30 Labs: Abnormal Lab Results - Last 24 Hours (Table) 06/09/20 06/09/20 06/09/20 Range/Units 11:32 16:05 17:40 WBC (3.8-10.6) k/uL RBC (3.80-5.40) m/uL Hgb (11.4-16.0) gm/dL Hct (34.0-46.0) % MCHC (31.0-37.0) g/dL RDW (11.5-15.5) % Plt Count (150-450) k/uL ABG pH (7.35-7.45) ABG pCO2 50 H (35-45) mmHg ABG pO2 112 H (83-108) mmHg ABG HCO3 29 H (21-25) mmol/L ABG Total CO2 30 H (19-24) mmol/L ABG O2 Saturation 98.8 H (94-97) % Chloride (98-107) mmol/L BUN (7-17) mg/dL Creatinine (0.52-1.04) mg/dL POC Glucose (mg/dL) 134 H 117 H (75-99) mg/dL AST (14-36) U/L Total Protein (6.3-8.2) g/dL Albumin (3.5-5.0) g/dL 06/09/20 06/10/20 06/10/20 Range/Units 20:34 04:30 04:30 WBC 13.2 H (3.8-10.6) k/uL RBC 2.65 L (3.80-5.40) m/uL Hgb 7.3 L (11.4-16.0) gm/dL Hct 26.0 L (34.0-46.0) % MCHC 28.1 L (31.0-37.0) g/dL RDW 18.2 H (11.5-15.5) % Plt Count 83 L (150-450) k/uL ABG pH 7.34 L (7.35-7.45) ABG pCO2 55 H (35-45) mmHg ABG pO2 113 H (83-108) mmHg ABG HCO3 29 H (21-25) mmol/L ABG Total CO2 31 H (19-24) mmol/L ABG O2 Saturation 98.8 H (94-97) % Chloride 108 H (98-107) mmol/L BUN 100 H (7-17) mg/dL Creatinine 2.97 H (0.52-1.04) mg/dL POC Glucose (mg/dL) (75-99) mg/dL AST 37 H (14-36) U/L Total Protein 5.8 L (6.3-8.2) g/dL Albumin 2.7 L (3.5-5.0) g/dL Assessment and Plan Plan: Assessment: 1. Acute kidney injury secondary to ATN secondary to cardiac arrest/hemodynamic instability. Renal function stable. Creatinine 2.97 today. 2. Chronic kidney disease stage IV with baseline creatinine 2.7-3 secondary to nephrosclerosis. 3. Acute on chronic diastolic CHF. 4. Status post PEA arrest on June 04. 5. Anemia of chronic kidney disease maintained on Aranesp. Receiving a unit of blood today. 6. Chronic kidney disease mineral bone disease maintained on calcitriol and PhosLo. 7. Shock possibly septic from pneumonia status post Levophed. 8. Pneumothorax status post Thora-Vent placement. 9. Volume overload. 10. Acute on chronic hypoxic respiratory failure. Extubated June 09. Currently on BiPAP. Plan: Maintain Lasix 60 mg IV twice daily. Continue to monitor renal function and urine output.
--- NOTE | 2020-06-10 10:47 | US ---
EXAMINATION TYPE: US chest DATE OF EXAM: 06/10/2020 COMPARISON: Radiograph same day CLINICAL HISTORY: 70-year-old female Markings for thoracentesis by pulmonary staff. Pleural effusion. TECHNIQUE: Targeted ultrasound of the posterior lower left hemithorax FINDINGS: EXAM MEASUREMENTS: Left Pleural Effusion pocket size: 8.1 cm Left side NOT marked for possible thoracentesis outside the dept due to lung position. Pulmonologists are able to review the images in the patient?s EMR. IMPRESSIONS: Moderate left effusion. Marking not performed due to interposed lung.
--- NOTE | 2020-06-10 10:49 | P.GSCN ---
History of Present Illness Consult date: 06/10/20 Reason for Consult: Left hemothorax, chest tube placement Requesting physician: Althea Mondragon History of present illness: This is a 70-year-old morbidly obese female who follows on an outpatient basis with Dr. Rodriguez. She is a previous medical history of chronic atrial fibrillation, COPD on home oxygen, hypertension, stage IV chronic kidney disease, chronic anemia, obstructive sleep apnea with CPAP, previous tobacco d ependence and osteoarthritis. She resides in an extended care facility. She presented to [facility] emergency room from [facility] on 06/02/2020 with complaints of worsening shortness of breath and hypoxemia as well as significant weight gain of over 11 pounds in a week. She also reported worsening lower extremity edema and inability to ambulate, currently bed bound. She denied any chest pain, fever, chills, although she did complain of a mild cough. In the emergency room her chest x-ray demonstrated complete opacification of the left lung. WBC 9.3, hemoglobin 7.9, creatinine 3.6, BNP 11,300. She was admitted for evaluation and treatment with consultation placed to pulmonology and ne phrology. Thoracentesis was attempted on June 04 by interventional radiology, was aborted as the catheter was not long enough to advance, in addition patient became hemodynamically unstable and a CODE BLUE was called. She was intubated and CPR was initiated with return of rhythm. She had bronchoscopy completed in the intensive care unit, pleural fluid was sent for culture which was negative. On June 05 she was noted to have a pneumothorax with left-sided pleural effusion and a thoravent was placed by Dr. James, placed to continuous wall suction. The fluid aspirated from the thoravent was creamy and there was concern for chylothorax. Cholesterol was 33, LDH 120, protein 2628 with glucose 86. On June 08 her chest tube was placed to waterseal. On June 09 an occlusive cap was placed to the thoravent and the patient was extubated to BiPAP. This morning her left lung was completely ruben out on her chest x-ray, thoravent was placed back to continuous wall suction, and consultation was placed to Dr. Isaac for pleural thoracostomy tube placement. Review of Systems Review of systems was completed and was negative except as noted - Constitutional Reports as per HPI, Reports weight gain - Respiratory Reports as per HPI, Reports cough, Reports dyspnea, Reports home oxygen, Reports sleep apnea Past Medical History Past Medical History: Atrial Fibrillation, Asthma, Heart Failure, Hyperlipidemia, Hypertension, Liver Disease, Osteoarthritis (OA), Pneumonia, Renal Disease, Sleep Apnea/CPAP/BIPAP Additional Past Medical History / Comment(s): BRUNILDA with CPAP, O2 at 2L/NC during day, morbid obesity, intermittent vaginal bleed, fatty liver, CKD stage IV/mineral bone disease, UTIs, murmur, gout bilateral legs/feet, arthritis mult iple joints, sinus problems, past left lower leg cellulitis and wound, gastritis,"in my 20's i had ulcers", anemia "has had blood transfusion, and iron infusions", hiatal hernia, current excoriation R side abdominal fold and [facility] placing cream to buttock which pt states is red. History of Any Multi-Drug Resistant Organisms: Other MDRO Past Surgical History: Section, Ear Surgery Additional Past Surgical History / Comment(s): Debridement bilateral feet toenails, 04/2020 EGDcolonoscopy-normal, L ear benign tumor removed, x 2. Past Anesthesia/Blood Transfusion Reactions: No Reported Reaction Additional Past Anesthesia/Blood Transfusion Reaction / Comm: blood transfusions- no reaction Past Psychological History: No Psychological Hx Reported Additional Psychological History / Comment(s): Pt currently at [facility]. Pt is not ambulatory-they use lift to w/c Smoking Status: Former smoker Past Alcohol Use History: Rare Additional Past Alcohol Use History / Comment(s): started smoking at age 21 and quit 2007 a pack would last a week. Past Drug Use History: None Reported - Past Family History Mother Family Medical History: Cancer Additional Family Medical History / Comment(s): Mother of colon cancer at the age of 54 yrs. Father Family Medical History: Myocardial Infarction (HI) Additional Family Medical History / Comment(s): Father of a massive HI at the age of 60 yrs. Medications and Allergies Home Medications Medication Instructions Recorded Confirmed Type Folic Acid 1 mg PO DAILY@1200 12/19/16 06/02/20 History Cholecalciferol [Vitamin D3 (25 2,000 unit PO DAILY@1700 12/30/16 06/02/20 Hist ory Mcg = 1000 Iu)] Ferrous Sulfate [Iron (65 MG 325 mg PO DAILY@1200 02/23/17 06/02/20 History Elemental)] bisacodyL [Dulcolax] 10 mg RECTAL DAILY PRN 02/23/17 06/02/20 History Atorvastatin [Lipitor] 40 mg PO HS@2100 06/25/17 06/02/20 History Calcium Acetate [PhosLo] 667 mg PO DAILY@0800 08/23/17 06/02/20 History Epoetin Juan Jose [Procrit] 20,000 unit SQ TH 08/23/17 06/02/20 History Linaclotide [Linzess] 145 mcg PO DAILY@0800 08/23/17 06/02/20 History Lactulose 10 gm PO BID PRN 11/20/18 06/02/20 History Sennosides [Senna] 8.6 - 17.2 mg PO HS PRN 11/20/18 06/02/20 History calcitrioL [Calcitriol] 0.25 mcg PO DAILY@1700 11/20/18 06/02/20 History Acetaminophen Tab [Tylenol] 650 mg PO Q4H PRN 05/23/19 06/02/20 History Aspirin 81 mg PO DAILY@1200 05/23/19 06/02/20 History Co Q-10 60mg 60 mg PO DAILY@1700 05/23/19 06/02/20 History Ipratropium-Albuterol Nebulize 3 ml INHALATION RT-QID 05/23/19 06/02/20 History [Duoneb 0.5 mg-3 mg/3 ml Soln] Isosorbide Mononitrate ER [Imdur] 30 mg PO DAILY@0805/23/19 06/02/20 History Hydrocortisone Cream 1 applic TOPICAL BID 10/28/19 06/02/20 History [Hydrocortisone 2.5% Cream] allopurinoL [Zyloprim] 100 mg PO DAILY@0800 10/28/19 06/02/20 History Albuterol Sulfate [Albuterol 2 puff PO RT-Q4H PRN 04/30/20 06/02/20 History Sulfate Hfa] Loratadine [Claritin] 10 mg PO Q48H PRN 04/30/20 06/02/20 History Magnesium Hydroxide [Milk of 7,200 mg PO DAILY PRN 04/30/20 06/02/20 History Magnesia Concentrate] Acetaminophen-Codeine 300-30mg 1 tab PO TID PRN #9 tab 05/03/20 06/02/20 Rx [Tylenol w/codeine #3] Caldesene Powder 1 applic TOPICAL BID 06/02/20 06/02/20 History Metoprolol Tartrate [Lopressor] 25 mg PO BID@0800,1700 06/02/20 06/02/20 History Potassium Chloride [Klor-Con 10] 10 meq PO SUTUTHSA@1700 06/02/20 06/02/20 History Torsemide [Demadex] 40 mg PO DAILY@0800 06/02/20 06/02/20 History Allergies Allergy/AdvReac Type Severity Reaction Status Date / Time Iodinated Contrast Media AdvReac SEE COMMENT Verified 06/02/20 13:03 [Iodinated Contrast- Oral and IV Dye] sodium phosphate AdvReac SEE COMMENT Verified 06/02/20 13:03 [From Fleet Enema] NEPHROTOXINS AdvReac SEE COMMENT Uncoded 06/02/20 13:03 Surgical - Exam Vital Signs Pulse Resp BP 68 18 119/4 06/02/20 12:34 06/02/20 12:34 06/02/20 12:34 - General well developed, no distress, no pain, chronically ill, obese - Eyes normal ocular movement - ENT no hearing loss - Neck no masses, no bruits, trachea midline - Respiratory Lungs sounds significantly diminished on the left side. Respirations even, nonlabored. Currently on BiPAP, FiO2 40%, IPap 12, Epap 6 with oxygen saturation 100%. Thoravent present, connected to wall suction, no output since placing back to wall suction, no air leak present. - Cardiovascular S1/S2 present, irregular rate and rhythm, atrial fibrillation on telemetry. Palpable pulses bilaterally, generalized edema present. - Abdomen morbidly obese Abdomen: soft, non tender, bowel sounds - Genitourinary Arteaga present draining clear yellow urine - Rectum deferred - Integumentary Skin is warm and dry - Neurologic normal coordination, normal sensation - Musculoskeletal generalized weakness normal posture - Psychiatric oriented to time, oriented to person, oriented to place Results - Labs 06/10/20 04:30 06/10/20 04:30 Abnormal Lab Results - Last 24 Hours (Table) 06/09/20 06/09/20 06/09/20 Range/Units 11:32 16:05 17:40 WBC (3.8-10.6) k/uL RBC (3.80-5.40) m/uL Hgb (11.4-16.0) gm/dL Hct (34.0-46.0) % MCHC (31.0-37.0) g/dL RDW (11.5-15.5) % Plt Count (150-450) k/uL ABG pH (7.35-7.45) ABG pCO2 50 H (35-45) mmHg ABG pO2 112 H (83-108) mmHg ABG HCO3 29 H (21-25) mmol/L ABG Total CO2 30 H (19-24) mmol/L ABG O2 Saturation 98.8 H (94-97) % Chloride (98-107) mmol/L BUN (7-17) mg/dL Creatinine (0.52-1.04) mg/dL POC Glucose (mg/dL) 134 H 117 H (75-99) mg/dL AST (14-36) U/L Total Protein (6.3-8.2) g/dL Albumin (3.5-5.0) g/dL 06/09/20 06/10/20 06/10/20 Range/Units 20:34 04:30 04:30 WBC 13.2 H (3.8-10.6) k/uL RBC 2.65 L (3.80-5.40) m/uL Hgb 7.3 L (11.4-16.0) gm/dL Hct 26.0 L (34.0-46.0) % MCHC 28.1 L (31.0-37.0) g/dL RDW 18.2 H (11.5-15.5) % Plt Count 83 L (150-450) k/uL ABG pH 7.34 L (7.35-7.45) ABG pCO2 55 H (35-45) mmHg ABG pO2 113 H (83-108) mmHg ABG HCO3 29 H (21-25) mmol/L ABG Total CO2 31 H (19-24) mmol/L ABG O2 Saturation 98.8 H (94-97) % Chloride 108 H (98-107) mmol/L BUN 100 H (7-17) mg/dL Creatinine 2.97 H (0.52-1.04) mg/dL POC Glucose (mg/dL) (75-99) mg/dL AST 37 H (14-36) U/L Total Protein 5.8 L (6.3-8.2) g/dL Albumin 2.7 L (3.5-5.0) g/dL Diabetes panel 06/10/20 Range/Units 04:30 Sodium 142 (137-145) mmol/L Potassium 4.9 (3.5-5.1) mmol/L Chloride 108 H (98-107) mmol/L Carbon Dioxide 28 (22-30) mmol/L BUN 100 H (7-17) mg/dL Creatinine 2.97 H (0.52-1.04) mg/dL Glucose 85 (74-99) mg/dL Calcium 8.6 (8.4-10.2) mg/dL AST 37 H (14-36) U/L ALT 17 (4-34) U/L Alkaline Phosphatase 93 (38-126) U/L Total Protein 5.8 L (6.3-8.2) g/dL Albumin 2.7 L (3.5-5.0) g/dL Calcium panel 06/10/20 Range/Units 04:30 Calcium 8.6 (8.4-10.2) mg/dL Albumin 2.7 L (3.5-5.0) g/dL Pituitary panel 06/10/20 Range/Units 04:30 Sodium 142 (137-145) mmol/L Potassium 4.9 (3.5-5.1) mmol/L Chloride 108 H (98-107) mmol/L Carbon Dioxide 28 (22-30) mmol/L BUN 100 H (7-17) mg/dL Creatinine 2.97 H (0.52-1.04) mg/dL Glucose 85 (74-99) mg/dL Calcium 8.6 (8.4-10.2) mg/dL Adrenal panel 06/10/20 Range/Units 04:30 Sodium 142 (137-145) mmol/L Potassium 4.9 (3.5-5.1) mmol/L Chloride 108 H (98-107) mmol/L Carbon Dioxide 28 (22-30) mmol/L BUN 100 H (7-17) mg/dL Creatinine 2.97 H (0.52-1.04) mg/dL Glucose 85 (74-99) mg/dL Calcium 8.6 (8.4-10.2) mg/dL Total Bilirubin 0.8 (0.2-1.3) mg/dL AST 37 H (14-36) U/L ALT 17 (4-34) U/L Alkaline Phosphatase 93 (38-126) U/L Total Protein 5.8 L (6.3-8.2) g/dL Albumin 2.7 L (3.5-5.0) g/dL - Imaging Chest x-ray: report reviewed, image reviewed Assessment and Plan Assessment: 1. Left pleural effusion, S/P aborted thoracentesis, placement of Thoravent, cytology negative, fluid transudative in nature 2. Acute hypercapneic respiratory failure requiring mechanical ventilation, now on BiPap 3. Acute on chronic diastolic heart failure 4. Chronic atrial fibrillation on no anticoagulation due to history of bleeding 5. Chronic hypoxic respiratory failure, on home oxygen 6. Morbid obesity 7. History of hypertension 8. Stage IV chronic kidney disease 9. Chronic anemia 10. Obstructive sleep apnea with home Cpap use 11. Previous history of tobacco dependence 12. Medical debility, resides in [facility] 13. Osteoarthritis Plan: The patient was seen and examined at the bedside with Dr. Isaac. Chart/diagnostics were reviewed. The case was discussed with Dr. Mondragon. We will attempt to place left sided thoracostomy tube at the bedside in the ICU. Will monitor drainage from CT. Will monitor daily CXR. Medical management of other comorbidities by primary, pulmonary, cardio, nephro. Thank you Dr. Mondragon for this consult. We look forward to working with you in the care of your patient. Time with Patient: Greater than 30
[2020-06-10] MEDS: DARBEPOETIN ALFA 60 MCG/0.3 ML SYRINGE SQ SCH (11:01)
--- NOTE | 2020-06-10 11:56 | P.OP ---
Date of Procedure: 06/10/20 Preoperative Diagnosis: Left pleural effusion Postoperative Diagnosis: Same Procedure(s) Performed: Left chest tube placement Implants: 32-Kazakh Anesthesia: local Surgeon: Blake Isaac Estimated Blood Loss (ml): 5 Pathology: none sent Condition: stable Disposition: ICU Indications for Procedure: 70-year-old female who is morbidly obese over 200 kg and weight has white out of the left chest despite Thora vent in place fluid is good consistent with congestive heart failure over the patient said progressive white out of the left chest. Chest tube was requested by critical care Operative Findings: Pleural space was free. Mildly sanguinous primarily serous fluid was encountered. 600 mL was drained. Description of Procedure: Chest tube was placed in the ICU. Timeout was performed with the nursing staff and nurse practitioner. Patient was turned in lateral position the left chest up. Posterior lateral chest was sterilely prepped and draped. Incision was made after lidocaine anesthesia in the posterior axillary line near the sixth interspace. This was carried down into the subcutaneous tissue. Further lidocaine was infiltrated to the level of the ribs. Blunt dissection was arlette ed through the muscle and between the ribs into the pleural space. Queen of the pleural space was confirmed with digital exploration. 32-Kazakh chest tube was placed and advanced without difficulty. Immediately fluid came up and and it was clamped. It was connected to a Pleur-evac and then unclamped. Was secured in place with 2 suture ligatures of 0 Ethibond suture. Dry sterile dressings were applied and the patient was turned back in the supine position. A total of 600 mL was present in the Pleur-evac at that point in time. Chest x- ray was ordered.
--- NOTE | 2020-06-10 12:01 | CONS ---
CONSULTATION Mrs. Anand is a 70-year-old female who was admitted to the hospital on the first may with evidence of progressive dyspnea and hypoxemia. She has significant weight gain and worsening peripheral edema. She is a resident of [facility]. On presentation, she was found to have complete opacification of the left lung and she has chronic persistent long-term atrial fibrillation, not anticoagulated because of anemia and prior bleeding. She was intubated and subsequently extubated last night. Cardiology consultation was requested because of her arrhythmia. The patient is awake, had the CPAP on. She denies any chest pain. She continues to have dyspnea. The history is obtained from the records and from the nursing staff. She had no evidence of ventricular tachyarrhythmia nor rapid ventricular response. There was no significant pauses. She is on the low dose of norepinephrine and she has not been getting her beta shira. Her rate has been controlled. She is scheduled to undergo a chest tube placement today because of the opacification of the left lung. She had placement of a Thora-Vent with no significant drainage. In 2019, she had an echocardiogram that showed a preserved systolic function. There is no documented history of ischemic heart disease according to the record. She has a known history of stage 4 chronic kidney disease. She has history of hyperlipidemia and hypertension. She is a non diabetic. Her medication prior to admission included isosorbide mononitrate 30 mg daily, metoprolol tartrate 25 mg twice a day, Procrit, PhosLo, Lipitor 40 mg daily, Demodex 40 mg daily, aspirin 81 mg daily, calcium, iron, folic acid, in addition to DuoNeb, albuterol. REVIEW OF SYSTEMS: Is limited but the patient has dyspnea on exertion. She has a cough. GI SYSTEM There is no history of recent bleeding, no nausea. SYSTEM: She had prior history of vaginal bleeding. NERVOUS SYSTEM: No history of seizure. PHYSICAL EXAMINATION: She is a 70-year-old female on the BiPAP, morbidly obese, alert, in no apparent distress. Blood pressure 109/50 with a heart rate in the 60s. HEAD: Normocephalic. EYES: Sclerae nonicteric. NECK: No bruit. Unable to evaluate jugular venous pressure. LUNGS: With decreased breath sounds on the left side. HEART: Irregular, regular, S1, S2. No S3. No rub appreciated. ABDOMEN: Soft, obese, nontender. Positive bowel sounds. Extremities 3+ edema bilaterally. LAB DATA: Revealed hemoglobin of 7.3, white blood cells 13.2. BUN and creatinine 100 and 2.97, potassium 4.9. Her chest x-ray showed total opacification of the left lung. IMPRESSION: 1. Opacification of the left lung, etiology unclear. Workup in progress. Patient is scheduled to undergo a chest tube placement for drainage and further evaluation and diagnosis. 2. Chronic longstanding persistent atrial fibrillation, not anticoagulated because of anemia and prior vaginal bleeding. 3. Morbid obesity. 4. Fluid overload, multifactorial. In the past, the patient had a preserved systolic function. 5. History of hypertension. 6. Hyperlipidemia. 7. Chronic kidney disease. 8. Chronic anemia. RECOMMENDATION: From the cardiac standpoint, her ventricular response is controlled. Will continue holding her beta shira at this time. She had an echocardiogram ordered and I will review that. The patient is not anticoagulated. No evidence of significant pauses or ventricular ectopic activity. Depending on her progress, further recommendation will be made. Thank you for this consult. Will follow with you. MMODL / IJN: [id number] /
[2020-06-10 12:17] LABS: Glucose,Whole Blood 92 mg/dL (75-99)
--- NOTE | 2020-06-10 12:21 | XR ---
EXAMINATION TYPE: XR chest 1V portable DATE OF EXAM: 06/10/2020 Comparison: Earlier today Clinical History: 70-year-old female chest tube placement Findings: Improving aeration within the left upper and midlung with a chest tube placed. Left-sided Thora vent is also present. No appreciable pneumothorax. Left basilar opacity remains. There is some fluid thick ening the right minor fissure and a trace right effusion. Impression: Improving aeration on the left especially in the upper and mid lung after left-sided chest tube place ment. Focal opacity remains at the left base as well as trace right effusion.
[2020-06-10] MEDS: ENOXAPARIN 30 MG/0.3 ML SYRINGE SQ SCH (12:54)
--- NOTE | 2020-06-10 13:30 | P.PN ---
Subjective Progress Note Date: 06/10/20 Principal diagnosis: Acute hypoxic respiratory failure and left lower lobe pneumonia, with pleural effusion. 70-year-old female patient, [facility] resident who was referred back to the emergency department because of worsening shortness of breath and hypoxemia. The patient had significant amount of weight gain in the order of 11 pounds over this past week. She also reported worsening lower extremity edema. She was unable to ambulate. She is currently bedbound. She is morbidly obese with a BMI of 34.2. No fever no chills. No aspiration. She has a mild cough. No c hest pain. The chest x-rays showing complete opacification of the left lung without any significant shift of the trachea or volume loss. The left mainstem bronchus is currently off. White cell count 9.3 with hemoglobin of 7.9. Coagulation profile is within normal. 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 Serum bicarb is 29 with a sodium of 138. The liver functions is on essentially within normal limits. Albumin is at 3.3 with a total protein of 6.9. ProBNP level was 11,300. Currently, the patient is on 2 L of oxygen by nasal cannula. Pulse ox and order of 97%. Long with stage IV kidney disease secondary to do hypertensive nephrosclerosis. She also has chronic anemia, chronic proximal atrial fibrillation, COPD, osteoarthritis, obstructive sleep apnea, gout and she Zyvox and dependent and she has home O2. She is medically debilitated and she is a left and a walker. She is a resident of a [facility]. During her most recent hospitalization, the anemia was further worked up by EGD EGD showed mild gastritis. There was mild duodenitis. There was a small hiatal hernia. 06/06/2020, the patient remains intubated on a mechanical ventilator. The patient is currently sedated with propofol running at 40 g per KG per minute. The patient is requiring low-dose norepinephrine infusion for blood pressure sup port and this is running at 0.0 mg per KG per minute. The patient is receiving enteral feeding with vital high protein at the rate of 50 mL an hour. The patient has a fluoroscopy vent on the left lung. A total of 700 mL of fluid was aspirated yesterday. The fluid is a bit bloody and creamy and esophagus and there is a possibility of a chylothorax. The initial analysis came back as a transudate with a low LDH and low protein. The fluid triglycerides still pending for now. Meanwhile, the patient had a follow-up chest x-ray today that showed that the Thoravent is adequate location. There is some improved aeration left upper lobe. His volume loss in the left lung along with some ongoing consolidation of left lower lobe. The ET tube is in a good location. The patient has some cardiomegaly. The patient is currently on assist control mode of ventilation. The patient is on a assist-control of 20 with a rate of 20 and a tidal volume of 400 and FiO2 of 50% and a PEEP of 5. The pH is at 7.47 with a pCO2 of 35 and pO2 of 232. The patient's peak air pressure is around 30 to anesthetic pressures somewhat elevated this is secondary and this is secondary to extrapulmonary restriction with elevation of the anesthetic pressures. Adequate urine output. Lasix was given by nephrology to dose of 40 mg 1. There is some edema lower extremities. Fluid cytology from the left lung is still pending for now. On 06/07/20, patient remains in the ICU, intubated and mechanically ventilated. She is on assist control rate of 28, FiO2 is 40%, tidal volume is 400 and PEEP of 5. ABG showed a pO2 of 164 pCO2 of 36 and pH of 7.47. Patient remains sedated, on propofol at 20 mcg/kg/m, she is also on norepinephrine at 0.02 mcg/kg/m. Ventilator settings were changed to assist control rate of 24 and FiO2 was decreased down to 35%. Patient is in atrial fibrillation however her rate seems to be well-controlled. Continues to have a left sided chest tube/thoravent in place. Continues to have significant consolidation of the left lower lobe. Patient is now draining significantly yellow fluid possible chylothorax noted, triglycerides were ordered on the fluid. She also received a unit of packed RBCs today for hemoglobin of 6.7. That triglycerides level on the pleural effusion is pending. Patient was reevaluated today on 06/08/2020, remains in the ICU, intubated and mechanically ventilated. Patient is on assist control rate of 24 tidal volume is 400 FiO2 is 35% and PEEP of 5. ABG showed a pO2 of 60 pCO2 43 pH of 7.42, hence her FiO2 was increased to 40%. Patient remains on norepinephrine at 0.02 g/kg/m, she is off propofol this morning, and I plan to assess her mental status. According to the nurse the patient didn't follow simple instructions yesterday off propofol. Chest x-ray continues to show evidence of bibasilar opacities especially opacity over the left hemithorax, thoravent remains in place, however not draining, and there is no air leak. I plan to It, and possibly discontinue this in the next 24-48 hours. Review the results of her last bronchoscopy, blood cultures are nondiagnostic. Patient remains on TPN feeding, she is up to goal, patient remains on Lasix, she remains in atrial fibrillation with controlled rate. CBC showed a hemoglobin of 7 and electrolytes are normal renal profile is poor with BUN of 84 creatinine 3.29. Not much exchange operator the last 6 days. Blood cultures and sputum cultures as well as pleural effusion cultures are all negative. Triglycerides on the pleural effusion is still pending. Patient was reevaluated today on 06/09/20, remains in the intensive care unit, intubated and mechanically ventilated. Her ventilator settings are assist control rate of 24, tidal volume is 400 FiO2 is 40% and PEEP is 5 ABG showed a pO2 of 88 pCO2 of 45 pH of 7.41. Patient remains on norepinephrine at 2 mcg/m, off propofol this morning, awake, arousable, and follows simple instructions. Patient is in atrial fibrillation with a rate of 74, again blood pressure is marginal. Her urine output is about 40-100 mL/h, remains on Lasix. Chest x-ray continues to show significant opacity in the left lower lobe area, difficult to tell how much of this is fluid or how much of it is atelectasis. The chest tube is not draining anything at this point, and it is now Plan to remove it in the next 24 hours. Considering the patient is following instructions, I went ahead and recommended a trial of pressure support of 14 and CPAP. Renal functioning remains poor with a BUN of 88 creatinine 3.06. Electrolytes are normal. WBC co unt is 11.8 hemoglobin is 7.9. Patient was reevaluated today on 06/10/20, patient tolerated a good trial of pressure support and CPAP yesterday, and early evening the patient was noted to have ABG on a pressure support of 6 and CPAP, hence I recommended extubating the patient. Patient was extubated uneventfully but she was extubated to BiPAP. Today I evaluated the patient, she seems to be comfortable on BiPAP, however her chest x-ray shows again complete opacification of the left lung. Connected to her thoravent to wall suction, and no fluid was obtained. Ultrasound showed fluid, but lung tissue was noted, hence could not perform a thoracentesis. Consulted Dr. Isaac who placed at bedside chest tube and significant amount of fluid was drained from the left side of the chest. Follow-up chest x-ray showed significant improvement, and better aeration to the left lung. Fluid will be s ent again for different diagnostic studies including cultures and including LDH protein glucose as well as cytology. Patient is now on BiPAP with IPAP of 12 EPAP of 6 FiO2 is 40%. IV fluid is at KVO. Patient is hemodynamically stable, not requiring any pressors, patient is arousable, follows simple instructions. WBC count is 13.2 hemoglobin is 7.3 electrolytes are normal BUN is 100 creatinine is 2.97 Objective - Vital Signs Vital signs: Vital Signs Temp 96.5 F L 06/10/20 08:00 Pulse 78 06/10/20 13:15 Resp 11 L 06/10/20 13:15 BP 134/73 06/10/20 06:00 Pulse Ox 100 06/10/20 13:15 Intake & Output 06/09/20 06/10/20 06/10/20 18:59 06:59 18:59 Intake Total 1266.534 377.98 256.773 Output Total 605 1165 1715 Balance 661.534 -787.02 -1458.227 Weight 206.8 kg 203.618 kg Intake: IV 326 312 256 0.9 pressure bag 66 72 36 Piperacillin-Tazobactam 3 100 100 .375 gm In Sodium Chloride 0.9% 100 ml @ 25 mls/hr IVPB Q12HR [facility] Rx #:[id number] Sodium Chloride 0.9% 1, 220 120 000 ml @ 20 mls/hr IV . Q24H [facility] Rx#:[id number] Sodium Chloride 0.9% 1, 160 20 000 ml @ 50 mls/hr IV . Q20H [facility] Rx#:[id number] Intake, IV Titration 45.534 0.98 0.773 Amount Norepinephrine 32 mg In 13.318 0.98 0.773 Sodium Chloride 0.9% 218 ml @ 0.05 MCG/KG/MIN 4. 784 mls/hr IV .Q24H [facility] Rx#:[id number] propofoL 1,000 mg In 32.216 Empty Bag 1 bag @ Titrate IV .Q0M [facility] Rx#: [id number] Tube Feeding 715 65 Other 180 0 Output: Chest Tube Drainage 0 1200 Chest Tube Left Posterior 1200 Chest Left Upper Anterior Chest 0 0 Urine 605 1165 515 Other: Voiding Method Indwelling Catheter Indwelling Catheter Indwelling Catheter ABP, PAP, CO, CI - Last Documented Arterial Blood Pressure 121/55 - Exam Very pleasant 70-year-old female patient, morbidly obesity on BiPAP with FiO2 of 40%. Head exam atraumatic, normocephalic. Short obese neck. Neck is supple and without jugular venous distension, thyromegaly, or carotid bruits. Carotids were easily palpable bilaterally. Cardiac exam distant S1 and S2, no S3 gallop, no murmur could be appreciated. Lungs symmetrical chest expansion, diminished breath sounds on the left side, left sided thoravent is noted. Right side is clear with good air flow. Abdominal exam revealed morbidly obese, nontender, no megaly, no rebound Examination of the extremities revealed bipedal edema, diminished distal pulses bilaterally. Examination of the skin revealed no evidence of significant rashes, Neurologically, awake, responsive, follows simple instructions. Psychiatric blunted mood and affect. - Labs CBC & Chem 7: 06/10/20 04:30 06/10/20 04:30 Labs: Abnormal Lab Results - Last 24 Hours (Table) 06/09/20 06/09/20 06/09/20 Range/Units 16:05 17:40 20:34 WBC (3.8-10.6) k/uL RBC (3.80-5.40) m/uL Hgb (11.4-16.0) gm/dL Hct (34.0-46.0) % MCHC (31.0-37.0) g/dL RDW (11.5-15.5) % Plt Count (150-450) k/uL ABG pH 7.34 L (7.35-7.45) ABG pCO2 50 H 55 H (35-45) mmHg ABG pO2 112 H 113 H (83-108) mmHg ABG HCO3 29 H 29 H (21-25) mmol/L ABG Total CO2 30 H 31 H (19-24) mmol/L ABG O2 Saturation 98.8 H 98.8 H (94-97) % Chloride (98-107) mmol/L BUN (7-17) mg/dL Creatinine (0.52-1.04) mg/dL POC Glucose (mg/dL) 117 H (75-99) mg/dL AST (14-36) U/L Total Protein (6.3-8.2) g/dL Albumin (3.5-5.0) g/dL 06/10/20 06/10/20 Range/Units 04:30 04:30 WBC 13.2 H (3.8-10.6) k/uL RBC 2.65 L (3.80-5.40) m/uL Hgb 7.3 L (11.4-16.0) gm/dL Hct 26.0 L (34.0-46.0) % MCHC 28.1 L (31.0-37.0) g/dL RDW 18.2 H (11.5-15.5) % Plt Count 83 L (150-450) k/uL ABG pH (7.35-7.45) ABG pCO2 (35-45) mmHg ABG pO2 (83-108) mmHg ABG HCO3 (21-25) mmol/L ABG Total CO2 (19-24) mmol/L ABG O2 Saturation (94-97) % Chloride 108 H (98-107) mmol/L BUN 100 H (7-17) mg/dL Creatinine 2.97 H (0.52-1.04) mg/dL POC Glucose (mg/dL) (75-99) mg/dL AST 37 H (14-36) U/L Total Protein 5.8 L (6.3-8.2) g/dL Albumin 2.7 L (3.5-5.0) g/dL Assessment and Plan Assessment: Impression: Acute on chronic hypoxic respiratory failure, presented with complete opacification of the left lung and large left-sided pleural effusion, transudative in nature, however the color of the fluid today is suspicious for possible chylothorax. Triglycerides on the fluid are pending. Cytology on the fluid is negative. Acute left lower lobe pneumonia and possible septic shock on presentation. Morbid obesity with BMI of 74.2. Chronic hypoxic respiratory failure, normally on 2 L nasal cannula. Chronic kidney disease stage IV Chronic gastritis. Chronic diastolic congestive heart failure. Anemia of chronic kidney disease. Nonalcoholic fatty liver disease. COPD, ex-smoker. Presently inactive. Medical debility, patient is bed bound Chronic gout. Obstructive sleep apnea syndrome. Status post left sided tube thoracostomy on 06/10/20. This was done because the left lung was noted to be completely opacified again. Chronic Atrial fibrillation/flutter, recommended cardiac evaluation. In the meantime we'll place the patient on Lovenox 30 mg subcu daily Status post extubation on 06/09/20. Recommendation: Status post extubation on 06/09 Continue BiPAP, patient tolerated extubation well yesterday. Recommended tube thoracostomy and this was done by Dr. Isaac at bedside.. Continue antibiotics empirically. Swallow evaluation and possible oral feedings. If the patient passes swallow evaluation. Off pressors at present. Prognosis is extremely poor and guarded. Patient is critically ill. Considered bronchoscopy to evaluate the left lung again however since the chest tube seemed to improved aeration of the left lung, no need for bronchoscopy at this point. Critical care time is 33 minutes Time with Patient: Greater than 30
[2020-06-10] MEDS: ASPIRIN 81 MG PO SCH (15:49)
[2020-06-10] MEDS: FOLIC ACID 1 MG TAB PO SCH (15:49)
[2020-06-10] MEDS: SODIUM CHLORIDE 0.9% 1,000 ML IV SCH (15:49)
--- NOTE | 2020-06-10 17:43 | ECHOF ---
Referral Reason:short of breath MEASUREMENTS -------- HEIGHT: 165.1 cm WEIGHT: 203.2 kg BP: 128/55 RVIDd: 5.5 cm (< 3.3) IVSd: 1.0 cm (0.6 - 1.1) LVIDd: 6.8 cm (3.9 - 5.3) LVPWd: 1.3 cm (0.6 - 1.1) IVSs: 1.5 cm LVIDs: 5.4 cm LVPWs: 1.5 cm EDV(Teich): 240 ml ESV(Teich): 142 ml EF(Teich): 41 % %FS: 21 % SV(Teich): 98 ml RAP: 5.00 mmHg RVSP: 84.96 mmHg FINDINGS -------- This was a technically difficult study with suboptimal views. Morbid Obesity There is mild concentric left ventricular hypertrophy. Overall left ventricular systolic function i s mild-moderately impaired with, an EF between 40 - 45 %. LV not well visulized Septal wall flati edel due to RV overload The right ventricle is severely enlarged. The left atrium was not well visualized. The right atrium is markedly enlarged. 5.0mg of Lumason was utilized for enhancement of images The aortic valve was not well visualized. The mitral valve was not well visualized. Severe tricuspid regurgitation present. There is severe pulmonary hypertension. The right ventric ular systolic pressure, as measured by Doppler, is 84.96mmHg. The pulmonic valve was not well visualized. There is no pericardial effusion. CONCLUSIONS -------- 1. There is mild concentric left ventricular hypertrophy. 2. Overall left ventricular systolic function is mild-moderately impaired with, an EF between 40 - 45 %. 3. Septal wall flatining due to RV overload 4. The right ventricle is severely enlarged. 5. The right atrium is markedly enlarged. 6. Severe tricuspid regurgitation present. 7. There is severe pulmonary hypertension. 8. The right ventricular systolic pressure, as measured by Doppler, is 84.96mmHg. DISPATCHER MAINTENANCE: Rosy Goodrich [facility]
[2020-06-10 18:30] LABS: Glucose,Whole Blood 90 mg/dL (75-99)
[2020-06-10] MEDS: CHOLECALCIFEROL 1,000 UNIT TAB PO SCH (18:30)
[2020-06-10] MEDS: ATORVASTATIN 40 MG TAB PO SCH (23:14)
[2020-06-11 00:13] LABS: Glucose,Whole Blood 95 mg/dL (75-99)
[2020-06-11] MEDS: Acetaminophen-Codeine 300-30mg TAB PO PRN (00:17)
[2020-06-11] MEDS: INSULIN ASPART (NovoLOG) 100 UNIT/ML VIAL SQ SCH ×4 (00:17→17:32)
[2020-06-11] MEDS: ONDANSETRON 4 MG/2 ML VIAL IVP PRN (00:25)
--- NOTE | 2020-06-11 00:34 | P.PN ---
Subjective Progress Note Date: 06/10/20 Principal diagnosis: fluid overload This is a pleasant 70-year-old patient was chronic stable medical conditions include CHF EF 55 and 55%, morbid obesity, chronic kidney disease stage IV secondary to nephrosclerosis, renal bone disease, anemia of chronic kidney disease, persistent atrial fibrillation, fatty liver, COPD, primary osteoarthritis, obstructive sleep apnea, chronic gout, on home oxygen, chronic medical debility at her baseline uses a lift a wheelchair. Patient is a resident at [facility]. Patient presents with increasing swelling about a week. Increase in shortness of breath. Appetite is okay. Bowel movements are okay. No fever no chills. Started on IV Lasix. Admitted with CHF exacerbation. Put on IV Lasix. On June 04 -was taken to for thoracentesis and it was a bit difficult by IR. Patient went into PEA cardiac arrest. intubated. Hypotensive. Moved to ICU. Thora-vent was placed. About 850 mL of pus-bloody fluid was obtained. [id number]. On the ventilator. Telemetry shows sinus rhythm. Left chest tube to suction. On IV levo fed and propofol. Tube feeding. Granddaughter at the bedside. 06/08/2020 Patient is currently mechanical ventilator and is being monitored in the ICU. Sedated. low dose levophed. Chest x-ray showed cardiomegaly with central vascular congestion and small to moderate sized bilateral pleural fluid collections with the left sided pleural drainage catheter. Bronchial fluid cultures negative so far. Laboratory data showed WBC 8.2, hemoglobin 7.0 and platelets 87 BUN 84 and creatinine 3.29 Albumin 2.2 06/09/2020 Patient remains on ventilator and is currently sedated. Patient is also on Levophed drip. Chest x-ray showed suspect some improvement in patient's volume status. There may be basilar effusions. Atelectasis, difficult to exclude pneumonia. Patient does have chest tube with minimal drainage. Laboratory data showed WBC 11.8, hemoglobin 7.9 and platelets 87 BUN 88 and creatinine 3.06 Pulmonary and nephrology is on board. 06/10/2020 Patient is currently extubated and is saturating well on oxygen via nasal cannula. Patient is otherwise awake alert and trying to communicate. Chest x-ray this morning showed improving aeration of the left especially in the upper and midlung after left-sided chest tube placement. Focal opacity remains at the left base as well as trace right effusion. 2D echocardiogram showed ejection fraction 40 to 45% there is severe tricuspid regurgitation present. Severe pulmonary hypertension. Left ventricle systolic pressure is 84.96 mmHg. Laboratory data showed WBC 13.2, hemoglobin 7.3 and platelets 83 BUN 100 and creatinine 2.97 Complete review of systems could not be obtained from the patient. Active Medications Acetaminophen (Tylenol Tab) 650 mg PO Q4H PRN PRN Reason: Pain or Fever > 100.5 Acetaminophen/Codeine Phosphate (Tylenol #3) 1 each PO TID PRN PRN Reason: Pain Last Admin: 06/04/20 01:23 Dose: 1 each Documented by: Albuterol/Ipratropium (Duoneb 0.5 Mg-3 Mg/3 Ml Soln) 3 ml INHALATION RT-QID [facility] Last Admin: 06/09/20 19:48 Dose: 3 ml Documented by: Allopurinol (Zyloprim) 100 mg PO DAILY@0800 [facility] Last Admin: 06/09/20 09:17 Dose: 100 mg Documented by: Aspirin (Aspirin) 81 mg PO DAILY@1200 [facility] Last Admin: 06/09/20 13:12 Dose: 81 mg Documented by: Atorvastatin Calcium (Lipitor) 40 mg PO HS@2100 [facility] Last Admin: 06/09/20 21:36 Dose: Not Given Documented by: Bisacodyl (Dulcolax) 10 mg RECTAL DAILY PRN PRN Reason: Constipation Last Admin: 06/03/20 10:28 Dose: 10 mg Documented by: Calcitriol (Rocaltrol) 0.25 mcg PO DAILY@1700 [facility] Last Admin: 06/09/20 16:38 Dose: 0.25 mcg Documented by: Calcium Acetate (Phoslo) 667 mg PO DAILY@0800 [facility] Last Admin: 06/09/20 09:16 Dose: 667 mg Documented by: Chlorhexidine Gluconate (Peridex) 15 ml MUCOUS MEM BID [facility] Last Admin: 06/09/20 22:15 Dose: 15 ml Documented by: Cholecalciferol (Vitamin D3 (25 Mcg = 1000 Iu)) 2,000 unit PO DAILY@1700 [facility] Last Admin: 06/09/20 16:38 Dose: 2,000 unit Documented by: Darbepoetin Juan Jose (Aranesp) 60 mcg SQ TH [facility] Last Admin: 06/03/20 15:58 Dose: 60 mcg Documented by: Folic Acid (Folic Acid) 1 mg PO DAILY@1200 [facility] Last Admin: 06/09/20 13:12 Dose: 1 mg Documented by: Furosemide (Lasix) 60 mg IV BID [facility] Last Admin: 06/09/20 22:15 Dose: 60 mg Documented by: Norepinephrine Bitartrate 32 (mg/ Sodium Chloride) 250 mls @ 4.784 mls/hr IV .Q24H [facility]; Protocol Last Titration: 06/09/20 19:30 Dose: 0 mcg/kg/min, 0 mls/hr Documented by: Piperacillin Sod/Tazobactam (Sod 3.375 gm/ Sodium Chloride) 100 mls @ 25 mls/hr IVPB Q12HR [facility] Last Admin: 06/09/20 22:15 Dose: 25 mls/hr Documented by: Sodium Chloride (Saline 0.9%) 1,000 mls @ 20 mls/hr IV .Q24H [facility] Last Admin: 06/09/20 08:00 Dose: 20 mls/hr Documented by: Insulin Aspart (Novolog) 0 unit SQ Q6H [facility]; Protocol Last Admin: 06/09/20 17:42 Dose: Not Given Documented by: Lactulose (Cephulac) 10 gm PO BID PRN PRN Reason: Constipation Last Admin: 06/08/20 20:30 Dose: 10 gm Documented by: Loratadine (Claritin) 10 mg PO Q48H PRN PRN Reason: Allergy Symptoms Magnesium Hydroxide (Milk Of Magnesia) 2,400 mg PO DAILY PRN PRN Reason: Constipation Midodrine (Proamatine) 5 mg PO AC-TID [facility] Last Admin: 06/09/20 16:38 Dose: 5 mg Documented by: Non-Formulary Medication (Linaclotide [Linzess]) 145 mcg PO DAILY@0800 [facility] Last Admin: 06/09/20 09:17 Dose: Not Given Documented by: Ondansetron HCl (Zofran) 4 mg IVP Q6HR PRN PRN Reason: Nausea And Vomiting Last Admin: 06/04/20 05:36 Dose: 4 mg Documented by: Senna (Senokot) 8.6 - 17.2 mg PO HS PRN PRN Reason: Constipation Last Admin: 08/11/20 20:30 Dose: 8.6 mg Documented by: Triamcinolone Acetonide (Kenalog) 1 applic TOPICAL BID [facility] Last Admin: 06/09/20 22:12 Dose: Not Given Documented by: Objective - Vital Signs Vital signs: Vital Signs Temp 96 F L 06/10/20 16:00 Pulse 78 06/10/20 19:49 Resp 11 L 06/10/20 19:00 BP 134/73 06/10/20 06:00 Pulse Ox 100 06/10/20 19:00 Intake & Output 06/10/20 06/10/20 06/11/20 06:59 18:59 06:59 Intake Total 377.98 412.773 26 Output Total 1165 2475 80 Balance -787.02 -2062.227 -54 Weight 203.618 kg Intake: IV 312 412 26 0.9 pressure bag 72 72 6 Piperacillin-Tazobactam 3 100 .375 gm In Sodium Chloride 0.9% 100 ml @ 25 mls/hr IVPB Q12HR [facility] Rx #:[id number] Sodium Chloride 0.9% 1, 220 240 20 000 ml @ 20 mls/hr IV . Q24H [facility] Rx#:[id number] Sodium Chloride 0.9% 1, 20 000 ml @ 50 mls/hr IV . Q20H [facility] Rx#:[id number] Intake, IV Titration 0.98 0.773 Amount Norepinephrine 32 mg In 0.98 0.773 Sodium Chloride 0.9% 218 ml @ 0.05 MCG/KG/MIN 4. 784 mls/hr IV .Q24H [facility] Rx#:[id number] Tube Feeding 65 Other 0 Output: Chest Tube Drainage 1290 Chest Tube Left Posterior 1250 Chest Left Upper Anterior Chest 40 Urine 1165 1185 80 Other: Voiding Method Indwelling Catheter Indwelling Catheter ABP, PAP, CO, CI - Last Documented Arterial Blood Pressure 98/46 - Exam GENERAL: Laying in bed, awake and alert EYES: Pupils equal. Conjunctiva normal. HEENT: External appearance of nose and ears normal, oral cavity-endotracheal tube NECK: JVD unable to assess masses not palpable. HEART: First and second heart sounds are normal; no edema. LUNGS: Respiratory rate increased, distant breath [id number] chest tube ABDOMEN: Soft, nontender, liver spleen not palpable, no masses palpable. PSYCH: cooperative MUSCULAR skeletal: [place] - Labs CBC & Chem 7: 06/10/20 04:30 06/10/20 04:30 Labs: Abnormal Lab Results - Last 24 Hours (Table) 06/10/20 06/10/20 Range/Units 04:30 04:30 WBC 13.2 H (3.8-10.6) k/uL RBC 2.65 L (3.80-5.40) m/uL Hgb 7.3 L (11.4-16.0) gm/dL Hct 26.0 L (34.0-46.0) % MCHC 28.1 L (31.0-37.0) g/dL RDW 18.2 H (11.5-15.5) % Plt Count 83 L (150-450) k/uL Chloride 108 H (98-107) mmol/L BUN 100 H (7-17) mg/dL Creatinine 2.97 H (0.52-1.04) mg/dL AST 37 H (14-36) U/L Total Protein 5.8 L (6.3-8.2) g/dL Albumin 2.7 L (3.5-5.0) g/dL Assessment and Plan Assessment: -s/p Cardiac arrest with PEA -Acute hypoxic, hypercapnic respiratory failure-requiring ventilator support- slow to respond. extubated now. -Hypotensive shock requiring pressor support. possibe Septic shock due to Pneumonia -Acute on Chronic congestive heart failure from diastolic dysfunction - Severe pulmonary hypertension and severe TR. -Left pleural effusion 850 mL of fluid evacuated with Thora-vent now with the chest tube-slow to respond - Acute kidney injury secondary to ATN secondary to cardiac arrest/hemodynamic instability. -Chronic kidney disease stage IV secondary to nephrosclerosis with some worsening -Morbid obesity BMI 75.2 -Chronic kidney disease renal bone disease -Anemia of chronic kidney disease -Persistent atrial fibrillation, rate controlled Nonalcoholic fatty liver disease -COPD in an ex-smoker -Primary osteoarthritis -Obstructive sleep apnea -Chronic gout -Chronic hypoxic respiratory failure from COPD -Chronic medical debility and a baseline patient does use a lift to a wheelchair -Thoracentesis with the Thora-vent in place Plan: Patient is currently extubated. 2D echocardiogram showed ejection fraction 40 to 45%. Continue with aspirin statins and also on IV Lasix 60 mg twice daily. Continue with midodrine. Antibiotics include IV Zosyn. Other medications to continue. Prognosis guarded. Time with Patient: Greater than 30
[2020-06-11 04:50] LABS: Anisocytosis Slight; HCT 25.1 % (34.0-46.0); HGB 7.1 gm/dL (11.4-16.0); Hypochromasia Marked; MCHC 28.2 g/dL (31.0-37.0); MCV 99.2 fL (80.0-100.0); Macrocytosis Slight; Mean Platelet Volume 10.9; Poikilocytosis Moderate; RBC 2.53 m/uL (3.80-5.40); WBC 12.8 k/uL (3.8-10.6)
[2020-06-11 05:01] LABS: Platelet Count 76 k/uL (150-450)
[2020-06-11 05:04] LABS: Calcium 8.5 mg/dL (8.4-10.2); Potassium 4.5 mmol/L (3.5-5.1)
[2020-06-11 05:50] LABS: Glucose,Whole Blood 80 mg/dL (75-99)
[2020-06-11] MEDS: MIDODRINE 5 MG TAB PO SCH ×3 (06:48→17:25)
[2020-06-11] MEDS: IPRATROPIUM-ALBUTEROL 3 ML NEB INHALATION SCH ×4 (07:09→19:47)
--- NOTE | 2020-06-11 07:30 | P.PN ---
Subjective Progress Note Date: 06/11/20 Principal diagnosis: Left pleural effusion, acute hypercapnic respiratory failure, acute on chronic diastolic heart failure. Previous medical history of chronic atrial fibrillatio n on no anticoagulation due to history of bleeding, chronic hypoxic respiratory failure on home oxygen, morbid obesity, hypertension, stage IV chronic kidney disease, chronic anemia, obstructive sleep apnea with home CPAP use, previous tobacco dependence, medical debility, osteoarthritis. POD #1 left chest tube placement The patient is currently laying in bed in the intensive care unit in no acute distress. Denies pain or significant shortness of breath. She was weaned off BiPAP and is currently on 3 L nasal cannula with oxygen saturation 98%. She remains on no inotropes or pressors. Left pleural chest tube placed yesterday at the bedside present, no air leak present. Objective - Vital Signs Vital signs: Vital Signs Temp 96.4 F L 06/11/20 04:00 Pulse 98 06/11/20 07:10 Resp 15 06/11/20 07:00 BP 134/73 06/10/20 06:00 Pulse Ox 98 06/11/20 07:00 Intake & Output 06/10/20 06/11/20 06/11/20 18:59 06:59 18:59 Intake Total 412.773 312 26 Output Total 2475 1055 50 Balance -2062.227 -743 -24 Weight 204.797 kg Intake: IV 412 312 26 0.9 pressure bag 72 72 6 Piperacillin-Tazobactam 3 100 .375 gm In Sodium Chloride 0.9% 100 ml @ 25 mls/hr IVPB Q12HR [facility] Rx #:[id number] Sodium Chloride 0.9% 1, 240 240 20 000 ml @ 20 mls/hr IV . Q24H [facility] Rx#:[id number] Intake, IV Titration 0.773 Amount Norepinephrine 32 mg In 0.773 Sodium Chloride 0.9% 218 ml @ 0.05 MCG/KG/MIN 4. 784 mls/hr IV .Q24H [facility] Rx#:[id number] Output: Chest Tube Drainage 1290 220 Chest Tube Left Posterior 1250 220 Chest Left Upper Anterior Chest 40 Urine 1185 835 50 Other: Voiding Method Indwelling Catheter Indwelling Catheter ABP, PAP, CO, CI - Last Documented Arterial Blood Pressure 87/49 - Constitutional General appearance: Present: cooperative, morbidly obese, no acute distress - Respiratory Details: Lungs sounds diminished on the left. Respirations even, nonlabored. Currently on 3 L nasal cannula with oxygen saturation 98%. Left pleural chest tube present, 120 mL cloudy serosanguineous drainage overnight, 920 mL since chest tube placement yesterday, no air leak present. - Cardiovascular Details: S1/S2 present, irregular rate and rhythm, atrial fibrillation on telemetry. Palpable pulses bilaterally, generalized edema present. - Gastrointestinal Gastrointestinal Comment(s): Abdomen soft, nontender, nondistended, obese. Active bowel sounds present 4 quadrants. - Genitourinary Genitourinary Comment(s): [place] present draining clear, yellow urine - Integumentary Integumentary Comment(s): Skin is warm and dry. She does have several areas of tape tapia and maceration from tape - Musculoskeletal Musculoskeletal: Present: generalized weakness, strength equal bilaterally - Psychiatric Psychiatric: Present: A&O x's 3, appropriate affect - Allied health notes Allied health notes reviewed: nursing - Labs CBC & Chem 7: 06/11/20 04:40 06/11/20 04:40 Labs: Abnormal Lab Results - Last 24 Hours (Table) 06/11/20 06/11/20 Range/Units 04:40 04:40 WBC 12.8 H (3.8-10.6) k/uL RBC 2.53 L (3.80-5.40) m/uL Hgb 7.1 L (11.4-16.0) gm/dL Hct 25.1 L (34.0-46.0) % MCHC 28.2 L (31.0-37.0) g/dL RDW 18.0 H (11.5-15.5) % Plt Count 76 L (150-450) k/uL Chloride 110 H (98-107) mmol/L BUN 94 H (7-17) mg/dL Creatinine 3.20 H (0.52-1.04) mg/dL - Imaging and Cardiology Chest x-ray: image reviewed Assessment and Plan Assessment: 1. Left pleural effusion, S/P aborted thoracentesis, placement of Thoravent, cytology negative, fluid transudative in nature, status post left thoracostomy tube placement 2. Acute hypercapneic respiratory failure requiring mechanical ventilation, now on nasal cannula 3. Acute on chronic diastolic heart failure 4. Chronic atrial fibrillation on no anticoagulation due to history of bleeding 5. Chronic hypoxic respiratory failure, on home oxygen 6. Morbid obesity 7. History of hypertension 8. Stage IV chronic kidney disease 9. Chronic anemia 10. Obstructive sleep apnea with home Cpap use 11. Previous history of tobacco dependence 12. Medical debility, resides in [facility] 13. Osteoarthritis Plan: 1. Continue left pleural chest tube to wall suction. We will continue to monitor Pleurx 2. O2 as tolerated. Bronchodilators, steroids, antibiotics per pulmonology 3. Increase activity as tolerated 4. Will monitor daily x-rays 5. Management of other comorbidities per primary care service, other consultants 6. More recommendations to follow Time with Patient: Greater than 30
--- NOTE | 2020-06-11 08:48 | XR ---
EXAMINATION TYPE: XR chest 1V portable DATE OF EXAM: 06/11/2020 CLINICAL HISTORY: Effusion TECHNIQUE: Semiupright portable view of the chest obtained COMPARISON: Chest radiograph 06/10/2020 FINDINGS: Left-sided internal jugular central venous catheter and left-sided chest tube in unchanged radiographic position. Interval removal of left-sided Thora vent. Left basilar opacity redemonstrate d. There is left pleural effusion with mildly decreased aeration of the left upper lung. No pneumotho rax definitively seen. IMPRESSION: 1. Interval removal of left-sided Thora vent. Unchanged radiographic position of left chest tube and left internal jugular central venous catheter. 2. Persistent left basilar opacity and left pleural effusion. Mildly decreased aeration of the left u pper lung may be due to semiupright positioning versus 06/10/2020.
[2020-06-11] MEDS: CALCIUM ACETATE 667 MG TAB PO SCH (09:01)
[2020-06-11] MEDS: FUROSEMIDE 10 MG/ML 10 ML VIAL IV SCH (09:01)
[2020-06-11] MEDS: ENOXAPARIN 30 MG/0.3 ML SYRINGE SQ SCH (09:01)
[2020-06-11] MEDS: allopurinoL 100 MG TAB PO SCH (09:01)
[2020-06-11] MEDS: PIPERACILLIN-TAZOBACTAM 3.375 GM in SODIUM CHLORIDE 0.9% 100 ML IVPB SCH ×2 (09:01→20:47)
[2020-06-11] MEDS: SODIUM CHLORIDE 0.9% 1,000 ML IV SCH (09:02)
[2020-06-11] MEDS: NON FORMULARY DRUG (Linaclotide [Linzess] 145 MCG) PO SCH (09:02)
[2020-06-11] MEDS: TRIAMCINOLONE 0.1% CREAM 80 GM TUBE TOPICAL SCH ×2 (09:02→20:47)
[2020-06-11] MEDS ORDERED: AMIODARONE 360 MG in DEXTROSE 5% IN WATER 200 ML IV ONE ×2 (10:15)
[2020-06-11] MEDS ORDERED: DEXTROSE 5% IN WATER 100 ML with AMIODARONE 150 MG IV ONE (10:15)
--- NOTE | 2020-06-11 10:20 | PN ---
PROGRESS NOTE Mrs. Anand is a 70-year-old female who presented with progressive dyspnea, had a white out of the left lung. She was intubated and subsequently extubated. She has a chronic persistent atrial fibrillation, had a chest tube placement yesterday with drainage of fluid. She is responding to verbal stimulation. She is in atrial fibrillation with controlled rate. She had an echocardiogram performed that revealed a mild left ventricular systolic dysfunction with an ejection fraction of 40% to 45% with severe pulmonary hypertension and severe tricuspid regurgitation. She continues to be at this time on aspirin once a day, Lipitor 40 mg daily, furosemide 60 mg IV q.12 hours, midodrine. The patient has not been anticoagulated because of anemia and recurrent bleeding. PHYSICAL EXAMINATION: Blood pressure 101/50 with a heart rate in the 80s. LUNGS: With decreased breath sounds on the left base. HEART: Irregular, regular, S1, S2. No S3 with a systolic murmur. ABDOMEN: Soft, obese, nontender. EXTREMITIES: +2 edema. LAB DATA: BUN and creatinine 94 and 3.2, potassium 4.5, hemoglobin of 7.1, platelet count 76,000. IMPRESSION: 1. White out of the left lung, status post chest tube placement. 2. Chronic long-term persistent atrial fibrillation not anticoagulated because of GI bleeding, rate controlled. 3. Respiratory failure. 4. Severe pulmonary hypertension with mild to moderate impairment of ventricular systolic function. 5. Left lower lobe pneumonia. 6. Morbid obesity. 7. Chronic kidney disease. 8. Anemia. 9. Medical debility. RECOMMENDATION: From the cardiac standpoint, will continue present therapy. Atrial fibrillation is chronic, her pulmonary hypertension is mostly related to her primary lung CA disease. She is not a candidate for anticoagulation because of her prior episode of diabetes as well as the severe anemia. Will see on as-needed basis. Please feel free to call us for any question. MMODL / IJN: [id number] /
--- NOTE | 2020-06-11 11:07 | P.PN ---
Subjective Patient is seen in follow-up for acute kidney injury on chronic kidney disease. Renal function a little worse today. She had a left-sided chest tube placed due to pleural effusion. She is maintained on IV Lasix. Patient had PEA arrest on June 04 and received 1 dose of epinephrine. Extubated June 09. Currently on nasal cannula. Status post blood transfusion on June 07. Hemoglobin 7.1 today. She is back on low-dose Levophed. Vital signs are stable. Currently on Levophed. General: The patient appeared well nourished and normally developed. HEENT: Head exam is unremarkable. Neck is without jugular venous distension. Intubated. LUNGS: Breath sounds decreased. HEART: Regular rhythm. ABDOMEN: Soft, nontender. Obese. EXTREMITITES: 3+ edema. Chronic changes noted. Objective - Vital Signs Vital signs: Vital Signs Temp 97.8 F 06/11/20 09:00 Pulse 122 H 06/11/20 09:30 Resp 13 06/11/20 09:30 BP 134/73 06/11/20 08:30 Pulse Ox 98 06/11/20 09:30 Intake & Output 06/10/20 06/11/20 06/11/20 18:59 06:59 18:59 Intake Total 412.773 312 154.139 Output Total 2475 1055 150 Balance -2062.227 -743 4.139 Weight 204.797 kg 204.797 kg Intake: IV 412 312 78 0.9 pressure bag 72 72 18 Piperacillin-Tazobactam 3 100 .375 gm In Sodium Chloride 0.9% 100 ml @ 25 mls/hr IVPB Q12HR [facility] Rx #:[id number] Sodium Chloride 0.9% 1, 240 240 60 000 ml @ 20 mls/hr IV . Q24H [facility] Rx#:[id number] Intake, IV Titration 0.773 6.139 Amount Norepinephrine 32 mg In 0.773 6.139 Sodium Chloride 0.9% 218 ml @ 0.05 MCG/KG/MIN 4. 784 mls/hr IV .Q24H [facility] Rx#:[id number] Tube Feeding 40 Other 30 Output: Chest Tube Drainage 1290 220 Chest Tube Left Posterior 1250 220 Chest Left Upper Anterior Chest 40 Urine 1185 835 150 Other: Voiding Method Indwelling Catheter Indwelling Catheter ABP, PAP, CO, CI - Last Documented Arterial Blood Pressure 95/51 - Labs CBC & Chem 7: 06/11/20 04:40 06/11/20 04:40 Labs: Abnormal Lab Results - Last 24 Hours (Table) 06/11/20 06/11/20 Range/Units 04:40 04:40 WBC 12.8 H (3.8-10.6) k/uL RBC 2.53 L (3.80-5.40) m/uL Hgb 7.1 L (11.4-16.0) gm/dL Hct 25.1 L (34.0-46.0) % MCHC 28.2 L (31.0-37.0) g/dL RDW 18.0 H (11.5-15.5) % Plt Count 76 L (150-450) k/uL Chloride 110 H (98-107) mmol/L BUN 94 H (7-17) mg/dL Creatinine 3.20 H (0.52-1.04) mg/dL Assessment and Plan Plan: Assessment: 1. Acute kidney injury secondary to ATN secondary to cardiac arrest/hemodynamic instability. Renal function a little worse. Creatinine 3.2 today. 2. Chronic kidney disease stage IV with baseline creatinine 2.7-3 secondary to nephrosclerosis. 3. Acute on chronic diastolic CHF. 4. Status post PEA arrest on June 04. 5. Anemia of chronic kidney disease maintained on Aranesp. Status post blood transfusion this admission. 6. Chronic kidney disease mineral bone disease maintained on calcitriol and PhosLo. 7. Shock possibly septic from pneumonia maintained on Levophed. 8. Pneumothorax status post Thora-Vent placement. 9. Volume overload. 10. Acute on chronic hypoxic respiratory failure. Extubated June 09. 11. Left pleural effusion status post chest tube placement June 10 12. A. fib maintained on amiodarone drip. Plan: Start Lasix drip at 10 mL an hour. Increase midodrine to 10 mg 3 times daily. Wean vasopressors. Continue to monitor renal function and urine output.
[2020-06-11] MEDS: FUROSEMIDE 100 MG in SODIUM CHLORIDE 0.9% 90 ML IV SCH ×2 (11:16→19:24)
[2020-06-11] MEDS: FOLIC ACID 1 MG TAB PO SCH (11:24)
[2020-06-11] MEDS: ASPIRIN 81 MG PO SCH (11:24)
[2020-06-11 11:31] LABS: Glucose,Whole Blood 104 mg/dL (75-99)
[2020-06-11] MEDS ORDERED: LIDOCAINE 1% INJ 10MG/ML (20 ML MDV) SQ ONE (12:24)
[2020-06-11 14:08] LABS: T4, Free (Free Thyroxine) 0.94 ng/dL (0.78-2.19)
--- NOTE | 2020-06-11 15:52 | P.PN ---
Subjective Progress Note Date: 06/11/20 Principal diagnosis: Acute hypoxic respiratory failure and left lower lobe pneumonia, with pleural effusion. 70-year-old female patient, [facility] resident who was referred back to the emergency department because of worsening shortness of breath and hypoxemia. The patient had significant amount of weight gain in the order of 11 pounds over this past week. She also reported worsening lower extremity edema. She was unable to ambulate. She is currently bedbound. She is morbidly obese with a BMI of 34.2. No fever no chills. No aspiration. She has a mild cough. No c hest pain. The chest x-rays showing complete opacification of the left lung without any significant shift of the trachea or volume loss. The left mainstem bronchus is currently off. White cell count 9.3 with hemoglobin of 7.9. Coagulation profile is within normal. 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 Serum bicarb is 29 with a sodium of 138. The liver functions is on essentially within normal limits. Albumin is at 3.3 with a total protein of 6.9. ProBNP level was 11,300. Currently, the patient is on 2 L of oxygen by nasal cannula. Pulse ox and order of 97%. Long with stage IV kidney disease secondary to do hypertensive nephrosclerosis. She also has chronic anemia, chronic proximal atrial fibrillation, COPD, osteoarthritis, obstructive sleep apnea, gout and she Zyvox and dependent and she has home O2. She is medically debilitated and she is a left and a walker. She is a resident of a [facility]. During her most recent hospitalization, the anemia was further worked up by EGD EGD showed mild gastritis. There was mild duodenitis. There was a small hiatal hernia. 06/06/2020, the patient remains intubated on a mechanical ventilator. The patient is currently sedated with propofol running at 40 g per KG per minute. The patient is requiring low-dose norepinephrine infusion for blood pressure sup port and this is running at 0.0 mg per KG per minute. The patient is receiving enteral feeding with vital high protein at the rate of 50 mL an hour. The patient has a fluoroscopy vent on the left lung. A total of 700 mL of fluid was aspirated yesterday. The fluid is a bit bloody and creamy and esophagus and there is a possibility of a chylothorax. The initial analysis came back as a transudate with a low LDH and low protein. The fluid triglycerides still pending for now. Meanwhile, the patient had a follow-up chest x-ray today that showed that the Thoravent is adequate location. There is some improved aeration left upper lobe. His volume loss in the left lung along with some ongoing consolidation of left lower lobe. The ET tube is in a good location. The patient has some cardiomegaly. The patient is currently on assist control mode of ventilation. The patient is on a assist-control of 20 with a rate of 20 and a tidal volume of 400 and FiO2 of 50% and a PEEP of 5. The pH is at 7.47 with a pCO2 of 35 and pO2 of 232. The patient's peak air pressure is around 30 to anesthetic pressures somewhat elevated this is secondary and this is secondary to extrapulmonary restriction with elevation of the anesthetic pressures. Adequate urine output. Lasix was given by nephrology to dose of 40 mg 1. There is some edema lower extremities. Fluid cytology from the left lung is still pending for now. On 06/07/20, patient remains in the ICU, intubated and mechanically ventilated. She is on assist control rate of 28, FiO2 is 40%, tidal volume is 400 and PEEP of 5. ABG showed a pO2 of 164 pCO2 of 36 and pH of 7.47. Patient remains sedated, on propofol at 20 mcg/kg/m, she is also on norepinephrine at 0.02 mcg/kg/m. Ventilator settings were changed to assist control rate of 24 and FiO2 was decreased down to 35%. Patient is in atrial fibrillation however her rate seems to be well-controlled. Continues to have a left sided chest tube/thoravent in place. Continues to have significant consolidation of the left lower lobe. Patient is now draining significantly yellow fluid possible chylothorax noted, triglycerides were ordered on the fluid. She also received a unit of packed RBCs today for hemoglobin of 6.7. That triglycerides level on the pleural effusion is pending. Patient was reevaluated today on 06/08/2020, remains in the ICU, intubated and mechanically ventilated. Patient is on assist control rate of 24 tidal volume is 400 FiO2 is 35% and PEEP of 5. ABG showed a pO2 of 60 pCO2 43 pH of 7.42, hence her FiO2 was increased to 40%. Patient remains on norepinephrine at 0.02 g/kg/m, she is off propofol this morning, and I plan to assess her mental status. According to the nurse the patient didn't follow simple instructions yesterday off propofol. Chest x-ray continues to show evidence of bibasilar opacities especially opacity over the left hemithorax, thoravent remains in place, however not draining, and there is no air leak. I plan to It, and possibly discontinue this in the next 24-48 hours. Review the results of her last bronchoscopy, blood cultures are nondiagnostic. Patient remains on TPN feeding, she is up to goal, patient remains on Lasix, she remains in atrial fibrillation with controlled rate. CBC showed a hemoglobin of 7 and electrolytes are normal renal profile is poor with BUN of 84 creatinine 3.29. 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 Blood cultures and sputum cultures as well as pleural effusion cultures are all negative. Triglycerides on the pleural effusion is still pending. Patient was reevaluated today on 06/09/20, remains in the intensive care unit, intubated and mechanically ventilated. Her ventilator settings are assist control rate of 24, tidal volume is 400 FiO2 is 40% and PEEP is 5 ABG showed a pO2 of 88 pCO2 of 45 pH of 7.41. Patient remains on norepinephrine at 2 mcg/m, off propofol this morning, awake, arousable, and follows simple instructions. Patient is in atrial fibrillation with a rate of 74, again blood pressure is marginal. Her urine output is about 40-100 mL/h, remains on Lasix. Chest x-ray continues to show significant opacity in the left lower lobe area, difficult to tell how much of this is fluid or how much of it is atelectasis. The chest tube is not draining anything at this point, and it is now Plan to remove it in the next 24 hours. Considering the patient is following instructions, I went ahead and recommended a trial of pressure support of 14 and CPAP. Renal functioning remains poor with a BUN of 88 creatinine 3.06. Electrolytes are normal. WBC co unt is 11.8 hemoglobin is 7.9. Patient was reevaluated today on 06/10/20, patient tolerated a good trial of pressure support and CPAP yesterday, and early evening the patient was noted to have ABG on a pressure support of 6 and CPAP, hence I recommended extubating the patient. Patient was extubated uneventfully but she was extubated to BiPAP. Today I evaluated the patient, she seems to be comfortable on BiPAP, however her chest x-ray shows again complete opacification of the left lung. Connected to her thoravent to wall suction, and no fluid was obtained. Ultrasound showed fluid, but lung tissue was noted, hence could not perform a thoracentesis. Consulted Dr. Isaac who placed at bedside chest tube and significant amount of fluid was drained from the left side of the chest. Follow-up chest x-ray showed significant improvement, and better aeration to the left lung. Fluid will be s ent again for different diagnostic studies including cultures and including LDH protein glucose as well as cytology. Patient is now on BiPAP with IPAP of 12 EPAP of 6 FiO2 is 40%. IV fluid is at KVO. Patient is hemodynamically stable, not requiring any pressors, patient is arousable, follows simple instructions. WBC count is 13.2 hemoglobin is 7.3 electrolytes are normal BUN is 100 creatinine is 2.97 Reevaluated today on 06/11/20, remains in the ICU, weaned and extubated 3 days ago, patient had a chest tube placed by thoracic surgery and continues to have fairly good amount of serosanguineous fluid coming out of the left chest. No air leak, lung seems to be expanded, left lower lobe remains consolidated. And patient is now on 2 L nasal cannula with O2 saturation of 99%. She is hypot ensive and hypothermic, hence I recommended serum cortisol and thyroid profile to be done on this patient. Total amount of fluid from the chest tube about 1100 mL of serosanguineous material over the last 24 hours. Patient is awake, arousable, follows instructions, remains in atrial fibrillation with RVR, and I recommended starting the patient on amiodarone. Cardiac consultation was initiated. Renal functioning remains marginal, wondering of the patient will eventually require possibly dialysis Objective - Vital Signs Vital signs: Vital Signs Temp 98.4 F 06/11/20 12:00 Pulse 121 H 06/11/20 15:30 Resp 9 L 06/11/20 15:30 BP 134/73 06/11/20 11:00 Pulse Ox 96 06/11/20 15:30 Intake & Output 06/10/20 06/11/20 06/11/20 18:59 06:59 18:59 Intake Total 412.773 312 269.678 Output Total 2475 1055 270 Balance -2062.227 -743 -0.322 Weight 204.797 kg 204.797 kg Intake: IV 412 312 176 0.9 pressure bag 72 72 36 Piperacillin-Tazobactam 3 100 .375 gm In Sodium Chloride 0.9% 100 ml @ 25 mls/hr IVPB Q12HR [facility] Rx #:[id number] Sodium Chloride 0.9% 1, 240 240 140 000 ml @ 20 mls/hr IV . Q24H [facility] Rx#:[id number] Intake, IV Titration 0.773 23.678 Amount Norepinephrine 32 mg In 0.773 23.678 Sodium Chloride 0.9% 218 ml @ 0.05 MCG/KG/MIN 4. 784 mls/hr IV .Q24H [facility] Rx#:[id number] Tube Feeding 40 Other 30 Output: Chest Tube Drainage 1290 220 Chest Tube Left Posterior 1250 220 Chest Left Upper Anterior Chest 40 Urine 1185 835 270 Other: Voiding Method Indwelling Catheter Indwelling Catheter ABP, PAP, CO, CI - Last Documented Arterial Blood Pressure 94/49 - Exam Very pleasant 70-year-old female patient, morbidly obesity on 2 L nasal cannula. Head exam atraumatic, normocephalic. Short obese neck. Neck is supple and without jugular venous distension, thyromegaly, or carotid bruits. Carotids were easily palpable bilaterally. Cardiac exam distant S1 and S2, no S3 gallop, no murmur could be appreciated. Lungs symmetrical chest expansion, diminished breath sounds on the left side, left sided chest tube is noted, Abdominal exam revealed morbidly obese, nontender, no megaly, no rebound Examination of the extremities revealed bipedal edema, diminished distal pulses bilaterally. Examination of the skin revealed no evidence of significant rashes, Neurologically, awake, responsive, follows simple instructions. Psychiatric blunted mood and affect. - Labs CBC & Chem 7: 06/11/20 04:40 06/11/20 04:40 Labs: Abnormal Lab Results - Last 24 Hours (Table) 06/11/20 06/11/20 06/11/20 Range/Units 04:40 04:40 04:40 WBC 12.8 H (3.8-10.6) k/uL RBC 2.53 L (3.80-5.40) m/uL Hgb 7.1 L (11.4-16.0) gm/dL Hct 25.1 L (34.0-46.0) % MCHC 28.2 L (31.0-37.0) g/dL RDW 18.0 H (11.5-15.5) % Plt Count 76 L (150-450) k/uL Chloride 110 H (98-107) mmol/L BUN 94 H (7-17) mg/dL Creatinine 3.20 H (0.52-1.04) mg/dL POC Glucose (mg/dL) (75-99) mg/dL TSH 5.720 H (0.465-4.680) mIU/L 06/11/20 Range/Units 11:30 WBC (3.8-10.6) k/uL RBC (3.80-5.40) m/uL Hgb (11.4-16.0) gm/dL Hct (34.0-46.0) % MCHC (31.0-37.0) g/dL RDW (11.5-15.5) % Plt Count (150-450) k/uL Chloride (98-107) mmol/L BUN (7-17) mg/dL Creatinine (0.52-1.04) mg/dL POC Glucose (mg/dL) 104 H (75-99) mg/dL TSH (0.465-4.680) mIU/L Assessment and Plan Assessment: Impression: Acute on chronic hypoxic respiratory failure, presented with complete opacification of the left lung and large left-sided pleural effusion, transudative in nature, however the color of the fluid today is suspicious for chylothorax. Significantly elevated triglycerides Acute left lower lobe pneumonia and possible septic shock on presentation. Morbid obesity with BMI of 74.2. Chronic hypoxic respiratory failure, normally on 2 L nasal cannula. Chronic kidney disease stage IV Chronic gastritis. Chronic diastolic congestive heart failure. Anemia of chronic kidney disease. Nonalcoholic fatty liver disease. COPD, ex-smoker. Presently inactive. Medical debility, patient is bed bound Chronic gout. Obstructive sleep apnea syndrome. Status post left sided tube thoracostomy on 06/10/20. This was done because the left lung was noted to be completely opacified again. Chronic Atrial fibrillation/flutter, recommended cardiac evaluation. In the meantime we'll place the patient on Lovenox 30 mg subcu daily Status post extubation on 06/09/20. Recommendation: Status post extubation on 06/09 Continue nasal cannula. Continue chest tube to suction. Continue antibiotics empirically. Swallow evaluation and possible oral feedings. If the patient passes swallow evaluation. Continue amiodarone for atrial fibrillation with RVR. Prognosis is extremely poor and guarded. We'll continue to follow, patient will eventually require placement. Time with Patient: Less than 30
[2020-06-11] MEDS: AMIODARONE 300 MG in DEXTROSE 5% IN WATER 250 ML IV SCH ×2 (16:15)
[2020-06-11] MEDS: CHOLECALCIFEROL 1,000 UNIT TAB PO SCH (17:25)
[2020-06-11] MEDS: NOREPINEPHRINE 32 MG in SODIUM CHLORIDE 0.9% 218 ML IV SCH (17:30)
[2020-06-11 17:34] LABS: Glucose,Whole Blood 138 mg/dL (75-99)
[2020-06-11] MEDS: ATORVASTATIN 40 MG TAB PO SCH (20:47)
[2020-06-12 00:02] LABS: Glucose,Whole Blood 138 mg/dL (75-99)
[2020-06-12] MEDS: INSULIN ASPART (NovoLOG) 100 UNIT/ML VIAL SQ SCH ×4 (00:28→18:00)
[2020-06-12] MEDS: NOREPINEPHRINE 32 MG in SODIUM CHLORIDE 0.9% 218 ML IV SCH ×2 (01:40→17:08)
[2020-06-12] MEDS: AMIODARONE 300 MG in DEXTROSE 5% IN WATER 250 ML IV SCH ×2 (02:01)
[2020-06-12 04:13] LABS: Anisocytosis Slight; Basophils # (A) 0.1 k/uL (0-0.2); Basophils % (A) 0 %; Eosinophils # (A) 0.1 k/uL (0-0.7); Eosinophils % (A) 1 %; HCT 26.9 % (34.0-46.0); HGB 7.3 gm/dL (11.4-16.0); Hypochromasia Marked; Lymphocytes # (A) 0.8 k/uL (1.0-4.8); Lymphocytes % (A) 3 %; MCH 27.1 pg (25.0-35.0); MCHC 27.2 g/dL (31.0-37.0); MCV 99.6 fL (80.0-100.0); Macrocytosis Slight; Mean Platelet Volume 10.1; Monocytes # (A) 1.8 k/uL (0-1.0); Monocytes % (A) 8 %; Neutrophils # (A) 19.9 k/uL (1.3-7.7); Neutrophils % (A) 86 %; Poikilocytosis Slight; RDW 18.6 % (11.5-15.5); WBC 23.2 k/uL (3.8-10.6)
[2020-06-12 04:19] LABS: Calcium 8.5 mg/dL (8.4-10.2); Potassium 4.7 mmol/L (3.5-5.1)
[2020-06-12 04:32] LABS: Platelet Count 131 k/uL (150-450)
[2020-06-12] MEDS: FUROSEMIDE 100 MG in SODIUM CHLORIDE 0.9% 90 ML IV SCH ×2 (05:37→16:56)
[2020-06-12 06:07] LABS: Glucose,Whole Blood 135 mg/dL (75-99)
[2020-06-12] MEDS: MIDODRINE 5 MG TAB PO SCH ×3 (07:08→17:56)
--- NOTE | 2020-06-12 07:28 | XR ---
EXAMINATION TYPE: XR chest 1V portable DATE OF EXAM: 06/12/2020 CLINICAL HISTORY: Difficulty breathing and pleural effusion progress study. TECHNIQUE: Single AP portable semiupright view of the chest is obtained. COMPARISON: Chest x-ray from one day earlier and older studies FINDINGS: Stable left internal jugular central venous catheter. Persistent left-sided chest tube wit h nearly completely opacified left hemithorax increased density left upper lung from one day earlier. Right lung remains clear. Left-sided volume loss with mediastinal shift redemonstrated. Left heart b order remains silhouetted. Atherosclerotic change aortic knob. Multilevel spurring in the spine. IMPRESSION: Persistent left sided volume loss with worsening left lung opacity despite chest tube in place suggests worsening left-sided pleural effusion and associated left lung atelectasis and/or infi ltrate.
[2020-06-12] MEDS: IPRATROPIUM-ALBUTEROL 3 ML NEB INHALATION SCH ×4 (07:52→19:36)
[2020-06-12] MEDS: SODIUM CHLORIDE 0.9% 1,000 ML IV SCH (08:21)
[2020-06-12] MEDS: allopurinoL 100 MG TAB PO SCH (08:22)
[2020-06-12] MEDS: CALCIUM ACETATE 667 MG TAB PO SCH (08:22)
[2020-06-12] MEDS: NON FORMULARY DRUG (Linaclotide [Linzess] 145 MCG) PO SCH (08:25)
[2020-06-12] MEDS: ENOXAPARIN 30 MG/0.3 ML SYRINGE SQ SCH (08:28)
[2020-06-12] MEDS: TRIAMCINOLONE 0.1% CREAM 80 GM TUBE TOPICAL SCH ×2 (08:35→20:29)
--- NOTE | 2020-06-12 11:34 | P.PN ---
Subjective Progress Note Date: 06/12/20 Follow-up for acute kidney injury. Good urine output around 100 ML's an hour since morning. Hemodynamically stable. On high flow oxygen via Ventimask. No nausea vomiting or diarrhea. Objective - Vital Signs Vital signs: Vital Signs Temp 96.3 F L 06/12/20 10:00 Pulse 109 H 06/12/20 11:15 Resp 17 06/12/20 11:00 BP 134/73 06/12/20 11:00 Pulse Ox 100 06/12/20 11:00 Intake & Output 06/11/20 06/12/20 06/12/20 18:59 06:59 18:59 Intake Total 384.678 953.623 115 Output Total 530 890 425 Balance -145.322 63.623 -310 Weight 204.797 kg 205.05 kg Intake: IV 291 276 115 0.9 pressure bag 51 36 15 Sodium Chloride 0.9% 1, 240 240 100 000 ml @ 20 mls/hr IV . Q24H [facility] Rx#:[id number] Intake, IV Titration 23.678 677.623 Amount Amiodarone 300 mg In 244.167 Dextrose 5% in Water 250 ml @ 0.5 MG/MIN 25 mls/hr IV .Q10H [facility] Rx#: [id number] Furosemide 100 mg In 181.333 Sodium Chloride 0.9% 90 ml @ 10 MG/HR 10 mls/hr IV .Q10H [facility] Rx#: [id number] Norepinephrine 32 mg In 23.678 152.123 Sodium Chloride 0.9% 218 ml @ 0.05 MCG/KG/MIN 4. 784 mls/hr IV .Q24H [facility] Rx#:[id number] Piperacillin-Tazobactam 3 100 .375 gm In Sodium Chloride 0.9% 100 ml @ 25 mls/hr IVPB Q12HR [facility] Rx #:[id number] Tube Feeding 40 Other 30 Output: Chest Tube Drainage 240 40 Chest Tube Left Posterior 240 40 Chest Urine 530 650 385 Other: Voiding Method Indwelling Catheter Indwelling Catheter ABP, PAP, CO, CI - Last Documented Arterial Blood Pressure 127/58 - Exam No acute distress S1-S2 heard Decreased breath sounds Abdomen soft Edema - Labs CBC & Chem 7: 06/12/20 03:53 06/12/20 03:53 Labs: Abnormal Lab Results - Last 24 Hours (Table) 06/11/20 06/11/20 06/11/20 Range/Units 04:40 11:30 17:27 WBC (3.8-10.6) k/uL RBC (3.80-5.40) m/uL Hgb (11.4-16.0) gm/dL Hct (34.0-46.0) % MCHC (31.0-37.0) g/dL RDW (11.5-15.5) % Plt Count (150-450) k/uL Neutrophils # (1.3-7.7) k/uL Lymphocytes # (1.0-4.8) k/uL Monocytes # (0-1.0) k/uL Chloride (98-107) mmol/L BUN (7-17) mg/dL Creatinine (0.52-1.04) mg/dL Glucose (74-99) mg/dL POC Glucose (mg/dL) 104 H 138 H (75-99) mg/dL TSH 5.720 H (0.465-4.680) mIU/L 06/11/20 06/12/20 06/12/20 Range/Units 23:59 03:53 03:53 WBC 23.2 H (3.8-10.6) k/uL RBC 2.70 L (3.80-5.40) m/uL Hgb 7.3 L (11.4-16.0) gm/dL Hct 26.9 L (34.0-46.0) % MCHC 27.2 L (31.0-37.0) g/dL RDW 18.6 H (11.5-15.5) % Plt Count 131 L D (150-450) k/uL Neutrophils # 19.9 H (1.3-7.7) k/uL Lymphocytes # 0.8 L (1.0-4.8) k/uL Monocytes # 1.8 H (0-1.0) k/uL Chloride 108 H (98-107) mmol/L BUN 96 H (7-17) mg/dL Creatinine 3.56 H (0.52-1.04) mg/dL Glucose 132 H (74-99) mg/dL POC Glucose (mg/dL) 138 H (75-99) mg/dL TSH (0.465-4.680) mIU/L 06/12/20 Range/Units 06:06 WBC (3.8-10.6) k/uL RBC (3.80-5.40) m/uL Hgb (11.4-16.0) gm/dL Hct (34.0-46.0) % MCHC (31.0-37.0) g/dL RDW (11.5-15.5) % Plt Count (150-450) k/uL Neutrophils # (1.3-7.7) k/uL Lymphocytes # (1.0-4.8) k/uL Monocytes # (0-1.0) k/uL Chloride (98-107) mmol/L BUN (7-17) mg/dL Creatinine (0.52-1.04) mg/dL Glucose (74-99) mg/dL POC Glucose (mg/dL) 135 H (75-99) mg/dL TSH (0.465-4.680) mIU/L Assessment and Plan Assessment: #1 nonoliguric acute kidney injury secondary to ischemic ATN from cardiopulmonary arrest with hemodynamic instability. Creeping creatinine susp ect overdiuresis. #2 chronic kidney disease stage IV suspect nephrosclerosis with a baseline creatinine of 2.7-3.0 MG per DL. #3 diastolic CHF currently decompensated #4 status post PEA cardiac arrest #5 shock on levo fed #6 pneumothorax status post left-sided chest U Plan: #1 continue with Lasix 10 mg an hour. Check FENa and Feurea and urine analysis.. If consistent with overdiuresis, back off on diuretics. #2 continue with midodrine for hemodynamic support. #3 avoid nephrotoxic agents and hypotensive episodes.
[2020-06-12 11:40] LABS: Glucose,Whole Blood 131 mg/dL (75-99)
[2020-06-12] MEDS: FOLIC ACID 1 MG TAB PO SCH (11:41)
[2020-06-12] MEDS: PIPERACILLIN-TAZOBACTAM 3.375 GM in SODIUM CHLORIDE 0.9% 100 ML IVPB SCH ×2 (11:41→20:29)
[2020-06-12] MEDS: ASPIRIN 81 MG PO SCH (11:41)
--- NOTE | 2020-06-12 12:17 | P.PN ---
Subjective Progress Note Date: 06/12/20 Principal diagnosis: Left pleural effusion, acute hypercapnic respiratory failure, acute on chronic diastolic heart failure. Past medical history significant for chronic atrial fi brillation on no anticoagulation due to history of bleeding, chronic hypoxic respiratory failure on home oxygen, morbid obesity, hypertension, stage IV chronic kidney disease, chronic anemia, obstructive sleep apnea with home CPAP use, previous tobacco dependence, medical debility, osteoarthritis. Status post day #2 left chest tube placement. The patient was seen in follow-up today on 06/12/2020 at her bedside in the intensive care unit. The patient is awake, alert and oriented 3. Denies any complaints of pain or shortness of breath. Oxygen saturations are 100% on 4 L nasal cannula. Left pleural chest tube remains in place to low continuous wall suction -20 cm H2O. No air air leak is present. 30 mL output in the last 8 hours of thin serosanguineous drainage and 280 mL output in the last 24 hours. Repeat chest x-ray this morning shows persistent left sided volume loss with worsening left lung opacity despite her chest tube being in place. Objective - Vital Signs Vital signs: Vital Signs Temp 96.3 F L 06/12/20 10:00 Pulse 109 H 06/12/20 11:15 Resp 17 06/12/20 11:00 BP 134/73 06/12/20 11:00 Pulse Ox 100 06/12/20 11:00 Intake & Output 06/11/20 06/12/20 06/12/20 18:59 06:59 18:59 Intake Total 384.678 953.623 115 Output Total 530 890 425 Balance -145.322 63.623 -310 Weight 204.797 kg 205.05 kg Intake: IV 291 276 115 0.9 pressure bag 51 36 15 Sodium Chloride 0.9% 1, 240 240 100 000 ml @ 20 mls/hr IV . Q24H [facility] Rx#:[id number] Intake, IV Titration 23.678 677.623 Amount Amiodarone 300 mg In 244.167 Dextrose 5% in Water 250 ml @ 0.5 MG/MIN 25 mls/hr IV .Q10H [facility] Rx#: [id number] Furosemide 100 mg In 181.333 Sodium Chloride 0.9% 90 ml @ 10 MG/HR 10 mls/hr IV .Q10H [facility] Rx#: [id number] Norepinephrine 32 mg In 23.678 152.123 Sodium Chloride 0.9% 218 ml @ 0.05 MCG/KG/MIN 4. 784 mls/hr IV .Q24H [facility] Rx#:[id number] Piperacillin-Tazobactam 3 100 .375 gm In Sodium Chloride 0.9% 100 ml @ 25 mls/hr IVPB Q12HR [facility] Rx #:[id number] Tube Feeding 40 Other 30 Output: Chest Tube Drainage 240 40 Chest Tube Left Posterior 240 40 Chest Urine 530 650 385 Other: Voiding Method Indwelling Catheter Indwelling Catheter ABP, PAP, CO, CI - Last Documented Arterial Blood Pressure 127/58 - Constitutional General appearance: Present: cooperative, morbidly obese, no acute distress - EENT Eyes: Present: PERRLA, normal appearance. Absent: scleral icterus ENT: Present: hearing grossly normal - Neck Details: Neck is supple, no JVD. No lymphadenopathy. - Respiratory Details: Lung sounds diminished to her bilateral bases, left greater than right. Respirations are symmetrical and nonlabored. Oxygen saturation are 100% on 4 L nasal cannula. Left pleural chest tube remains in place. No air leak is present. Draining thin serosanguineous drainage with 30 mL output in the last 8 hours, and 280 mL output in the last 24 hours. - Cardiovascular Details: Irregular rhythm with a tachycardic rate. S1 and S2 present, negative for S3, gallop or murmur. Bedside telemetry showing atrial fibrillation heart rate 117. Generalized edema. - Gastrointestinal Gastrointestinal Comment(s): Abdomen is soft, nontender and nondistended. Obese. Active bowel sounds present all 4 power quadrants. No guarding or rigidity. - Genitourinary Genitourinary Comment(s): Arteaga catheter for accurate I&O. Draining clear yellow urine. - Integumentary Integumentary Comment(s): Skin is warm and dry. No clubbing or cyanosis is present. - Neurologic Neurologic: Present: CNII-XII intact - Musculoskeletal Musculoskeletal: Present: generalized weakness, strength equal bilaterally - Psychiatric Psychiatric: Present: A&O x's 3, appropriate affect - Allied health notes Allied health notes reviewed: nursing - Labs CBC & Chem 7: 06/12/20 03:53 06/12/20 03:53 Labs: Abnormal Lab Results - Last 24 Hours (Table) 06/11/20 06/11/20 06/12/20 Range/Units 17:27 23:59 03:53 WBC 23.2 H (3.8-10.6) k/uL RBC 2.70 L (3.80-5.40) m/uL Hgb 7.3 L (11.4-16.0) gm/dL Hct 26.9 L (34.0-46.0) % MCHC 27.2 L (31.0-37.0) g/dL RDW 18.6 H (11.5-15.5) % Plt Count 131 L D (150-450) k/uL Neutrophils # 19.9 H (1.3-7.7) k/uL Lymphocytes # 0.8 L (1.0-4.8) k/uL Monocytes # 1.8 H (0-1.0) k/uL Chloride (98-107) mmol/L BUN (7-17) mg/dL Creatinine (0.52-1.04) mg/dL Glucose (74-99) mg/dL POC Glucose (mg/dL) 138 H 138 H (75-99) mg/dL 06/12/20 06/12/20 06/12/20 Range/Units 03:53 06:06 11:37 WBC (3.8-10.6) k/uL RBC (3.80-5.40) m/uL Hgb (11.4-16.0) gm/dL Hct (34.0-46.0) % MCHC (31.0-37.0) g/dL RDW (11.5-15.5) % Plt Count (150-450) k/uL Neutrophils # (1.3-7.7) k/uL Lymphocytes # (1.0-4.8) k/uL Monocytes # (0-1.0) k/uL Chloride 108 H (98-107) mmol/L BUN 96 H (7-17) mg/dL Creatinine 3.56 H (0.52-1.04) mg/dL Glucose 132 H (74-99) mg/dL POC Glucose (mg/dL) 135 H 131 H (75-99) mg/dL - Imaging and Cardiology Chest x-ray: report reviewed, image reviewed Assessment and Plan Assessment: 1. Left pleural effusion, S/P aborted thoracentesis, placement of Thoravent, cytology negative, fluid transudative in nature, status post left thoracostomy tube placement 2. Acute hypercapneic respiratory failure requiring mechanical ventilation, now on nasal cannula 3. Acute on chronic diastolic heart failure 4. Chronic atrial fibrillation on no anticoagulation due to history of bleeding 5. Chronic hypoxic respiratory failure, on home oxygen 6. Morbid obesity 7. History of hypertension 8. Stage IV chronic kidney disease 9. Chronic anemia 10. Obstructive sleep apnea with home Cpap use 11. Previous history of tobacco dependence 12. Medical debility, resides in [facility] 13. Osteoarthritis Plan: 1. Continue left pleural chest tube to wall suction at -20 cm H2O. Continue to monitor accurate I's and O's. 2. Wean O2 as tolerated. Bronchodilators, steroids, antibiotics per pulmonology 3. Increase activity as tolerated. 4. Will monitor daily chest x-rays. 5. Management of other comorbidities per primary care service, other consultants. 6. More recommendations to follow based on patient's clinical course. Time with Patient: Less than 30
[2020-06-12 12:26] LABS: Bacteria,Urine Occasional /hpf; Hyaline Casts,Urine 4 /lpf (0-2); Mucus,Urine Rare /hpf; RBC,Urine 11 /hpf (0-5); Squamous Epithelial Cell,Urine 3 /hpf (0-4); WBC,Urine 4 /hpf (0-5)
[2020-06-12 12:30] LABS: Appearance,Urine Clear (Clear); Color,Urine Yellow; Protein,Urine Negative (Negative); Specific Gravity,Urine 1.015 (1.001-1.035)
[2020-06-12 12:31] LABS: Bilirubin,Urine Negative (Negative); Blood,Urine Small (Negative); Glucose,Urine (UA) Negative (Negative); Ketones,Urine Negative (Negative); Leukocyte Esterase,Urine Small (Negative); Nitrite,Urine Negative (Negative); Urobilinogen,Urine <2.0 mg/dL (<2.0)
[2020-06-12] MEDS: AMIODARONE 200 MG TAB PO SCH ×2 (12:51→20:28)
--- NOTE | 2020-06-12 13:55 | P.PN ---
Subjective Progress Note Date: 06/12/20 Principal diagnosis: Acute hypoxic respiratory failure and left lower lobe pneumonia, with pleural effusion. 70-year-old female patient, jail resident who was referred back to the emergency department because of worsening shortness of breath and hypoxemia. The patient had significant amount of weight gain in the order of 11 pounds over this past week. She also reported worsening lower extremity edema. She was unable to ambulate. She is currently bedbound. She is morbidly obese with a BMI of 34.2. No fever no chills. No aspiration. She has a mild cough. No c hest pain. The chest x-rays showing complete opacification of the left lung without any significant shift of the trachea or volume loss. The left mainstem bronchus is currently off. White cell count 9.3 with hemoglobin of 7.9. Coagulation profile is within normal. 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 Serum bicarb is 29 with a sodium of 138. The liver functions is on essentially within normal limits. Albumin is at 3.3 with a total protein of 6.9. ProBNP level was 11,300. Currently, the patient is on 2 L of oxygen by nasal cannula. Pulse ox and order of 97%. Long with stage IV kidney disease secondary to do hypertensive nephrosclerosis. She also has chronic anemia, chronic proximal atrial fibrillation, COPD, osteoarthritis, obstructive sleep apnea, gout and she Zyvox and dependent and she has home O2. She is medically debilitated and she is a left and a walker. She is a resident of a [facility]. During her most recent hospitalization, the anemia was further worked up by EGD EGD showed mild gastritis. There was mild duodenitis. There was a small hiatal hernia. 06/06/2020, the patient remains intubated on a mechanical ventilator. The patient is currently sedated with propofol running at 40 g per KG per minute. The patient is requiring low-dose norepinephrine infusion for blood pressure sup port and this is running at 0.0 mg per KG per minute. The patient is receiving enteral feeding with vital high protein at the rate of 50 mL an hour. The patient has a fluoroscopy vent on the left lung. A total of 700 mL of fluid was aspirated yesterday. The fluid is a bit bloody and creamy and esophagus and there is a possibility of a chylothorax. The initial analysis came back as a transudate with a low LDH and low protein. The fluid triglycerides still pending for now. Meanwhile, the patient had a follow-up chest x-ray today that showed that the Thoravent is adequate location. There is some improved aeration left upper lobe. His volume loss in the left lung along with some ongoing consolidation of left lower lobe. The ET tube is in a good location. The patient has some cardiomegaly. The patient is currently on assist control mode of ventilation. The patient is on a assist-control of 20 with a rate of 20 and a tidal volume of 400 and FiO2 of 50% and a PEEP of 5. The pH is at 7.47 with a pCO2 of 35 and pO2 of 232. The patient's peak air pressure is around 30 to anesthetic pressures somewhat elevated this is secondary and this is secondary to extrapulmonary restriction with elevation of the anesthetic pressures. Adequate urine output. Lasix was given by nephrology to dose of 40 mg 1. There is some edema lower extremities. Fluid cytology from the left lung is still pending for now. On 06/07/20, patient remains in the ICU, intubated and mechanically ventilated. She is on assist control rate of 28, FiO2 is 40%, tidal volume is 400 and PEEP of 5. ABG showed a pO2 of 164 pCO2 of 36 and pH of 7.47. Patient remains sedated, on propofol at 20 mcg/kg/m, she is also on norepinephrine at 0.02 mcg/kg/m. Ventilator settings were changed to assist control rate of 24 and FiO2 was decreased down to 35%. Patient is in atrial fibrillation however her rate seems to be well-controlled. Continues to have a left sided chest tube/thoravent in place. Continues to have significant consolidation of the left lower lobe. Patient is now draining significantly yellow fluid possible chylothorax noted, triglycerides were ordered on the fluid. She also received a unit of packed RBCs today for hemoglobin of 6.7. That triglycerides level on the pleural effusion is pending. Patient was reevaluated today on 06/08/2020, remains in the ICU, intubated and mechanically ventilated. Patient is on assist control rate of 24 tidal volume is 400 FiO2 is 35% and PEEP of 5. ABG showed a pO2 of 60 pCO2 43 pH of 7.42, hence her FiO2 was increased to 40%. Patient remains on norepinephrine at 0.02 g/kg/m, she is off propofol this morning, and I plan to assess her mental status. According to the nurse the patient didn't follow simple instructions yesterday off propofol. Chest x-ray continues to show evidence of bibasilar opacities especially opacity over the left hemithorax, thoravent remains in place, however not draining, and there is no air leak. I plan to It, and possibly discontinue this in the next 24-48 hours. Review the results of her last bronchoscopy, blood cultures are nondiagnostic. Patient remains on TPN feeding, she is up to goal, patient remains on Lasix, she remains in atrial fibrillation with controlled rate. CBC showed a hemoglobin of 7 and electrolytes are normal renal profile is poor with BUN of 84 creatinine 3.29. Not much change control coordinator the last 6 days. Blood cultures and sputum cultures as well as pleural effusion cultures are all negative. Triglycerides on the pleural effusion is still pending. Patient was reevaluated today on 06/09/20, remains in the intensive care unit, intubated and mechanically ventilated. Her ventilator settings are assist control rate of 24, tidal volume is 400 FiO2 is 40% and PEEP is 5 ABG showed a pO2 of 88 pCO2 of 45 pH of 7.41. Patient remains on norepinephrine at 2 mcg/m, off propofol this morning, awake, arousable, and follows simple instructions. Patient is in atrial fibrillation with a rate of 74, again blood pressure is marginal. Her urine output is about 40-100 mL/h, remains on Lasix. Chest x-ray continues to show significant opacity in the left lower lobe area, difficult to tell how much of this is fluid or how much of it is atelectasis. The chest tube is not draining anything at this point, and it is now Plan to remove it in the next 24 hours. Considering the patient is following instructions, I went ahead and recommended a trial of pressure support of 14 and CPAP. Renal functioning remains poor with a BUN of 88 creatinine 3.06. Electrolytes are normal. WBC co unt is 11.8 hemoglobin is 7.9. Patient was reevaluated today on 06/10/20, patient tolerated a good trial of pressure support and CPAP yesterday, and early evening the patient was noted to have ABG on a pressure support of 6 and CPAP, hence I recommended extubating the patient. Patient was extubated uneventfully but she was extubated to BiPAP. Today I evaluated the patient, she seems to be comfortable on BiPAP, however her chest x-ray shows again complete opacification of the left lung. Connected to her thoravent to wall suction, and no fluid was obtained. Ultrasound showed fluid, but lung tissue was noted, hence could not perform a thoracentesis. Consulted Dr. Isaac who placed at bedside chest tube and significant amount of fluid was drained from the left side of the chest. Follow-up chest x-ray showed significant improvement, and better aeration to the left lung. Fluid will be s ent again for different diagnostic studies including cultures and including LDH protein glucose as well as cytology. Patient is now on BiPAP with IPAP of 12 EPAP of 6 FiO2 is 40%. IV fluid is at KVO. Patient is hemodynamically stable, not requiring any pressors, patient is arousable, follows simple instructions. WBC count is 13.2 hemoglobin is 7.3 electrolytes are normal BUN is 100 creatinine is 2.97 Reevaluated today on 06/11/20, remains in the ICU, weaned and extubated 3 days ago, patient had a chest tube placed by thoracic surgery and continues to have fairly good amount of serosanguineous fluid coming out of the left chest. No air leak, lung seems to be expanded, left lower lobe remains consolidated. And patient is now on 2 L nasal cannula with O2 saturation of 99%. She is hypot ensive and hypothermic, hence I recommended serum cortisol and thyroid profile to be done on this patient. Total amount of fluid from the chest tube about 1100 mL of serosanguineous material over the last 24 hours. Patient is awake, arousable, follows instructions, remains in atrial fibrillation with RVR, and I recommended starting the patient on amiodarone. Cardiac consultation was initiated. Renal functioning remains marginal, wondering of the patient will eventually require possibly dialysis Reevaluated today on 06/12/20, patient remains in the ICU, on nasal cannula, presently on 4 L/m, O2 saturations 100%. She is however requiring amiodarone for her atrial fibrillation with RVR, she is on norepinephrine for low blood pressure, and on Lasix at 10 mg per hour. Remains on Zosyn, she had 1200 mL of urine output in the last 24 hours, and continues to put out 40 mL per hour with the Lasix drip. However the patient is in atrial fibrillation with RVR, chest x-ray is showing worsening consolidation in the left lower lobe, I was considering bronchoscopy, however the patient is not stable enough for bronchoscopy at this point. Plus she is on norepinephrine for hemodynamic support. Will hold on bronchoscopy for now, and we'll arrange for cardiology to reevaluate regarding her atrial fibrillation and RVR. CBC showed WBC count of 23.2 hemoglobin is 7.3 restarted the patient on Zosyn. Basic metabolic profile is normal BUN is 96 creatinine 3.56. Patient does not seem to be making much improvement although she was extubated 4 days ago. Objective - Vital Signs Vital signs: Vital Signs Temp 96.3 F L 06/12/20 10:00 Pulse 105 H 06/12/20 13:00 Resp 0 L 06/12/20 13:00 BP 134/73 06/12/20 13:00 Pulse Ox 99 06/12/20 13:00 Intake & Output 06/11/20 06/12/20 06/12/20 18:59 06:59 18:59 Intake Total 384.678 953.623 161 Output Total 530 890 520 Balance -145.322 63.623 -359 Weight 204.797 kg 205.05 kg Intake: IV 291 276 161 0.9 pressure bag 51 36 21 Sodium Chloride 0.9% 1, 240 240 140 000 ml @ 20 mls/hr IV . Q24H [facility] Rx#:[id number] Intake, IV Titration 23.678 677.623 Amount Amiodarone 300 mg In 244.167 Dextrose 5% in Water 250 ml @ 0.5 MG/MIN 25 mls/hr IV .Q10H [facility] Rx#: [id number] Furosemide 100 mg In 181.333 Sodium Chloride 0.9% 90 ml @ 10 MG/HR 10 mls/hr IV .Q10H [facility] Rx#: [id number] Norepinephrine 32 mg In 23.678 152.123 Sodium Chloride 0.9% 218 ml @ 0.05 MCG/KG/MIN 4. 784 mls/hr IV .Q24H [facility] Rx#:[id number] Piperacillin-Tazobactam 3 100 .375 gm In Sodium Chloride 0.9% 100 ml @ 25 mls/hr IVPB Q12HR [facility] Rx #:[id number] Tube Feeding 40 Other 30 Output: Chest Tube Drainage 240 40 Chest Tube Left Posterior 240 40 Chest Urine 530 650 480 Other: Voiding Method Indwelling Catheter Indwelling Catheter ABP, PAP, CO, CI - Last Documented Arterial Blood Pressure 115/54 - Exam Very pleasant 70-year-old female patient, morbidly obesity on 4 L nasal cannula. Head exam atraumatic, normocephalic. Short obese neck. Neck is supple and without jugular venous distension, thyromegaly, or carotid bruits. Carotids were easily palpable bilaterally. Cardiac exam distant S1 and S2, no S3 gallop, no murmur could be appreciated. Irregular irregular rhythm noted. Lungs symmetrical chest expansion, diminished breath sounds on the left side, left sided chest tube is noted, Abdominal exam revealed morbidly obese, nontender, no megaly, no rebound Examination of the extremities revealed bipedal edema, diminished distal pulses bilaterally. Examination of the skin revealed no evidence of significant rashes, Neurologically, awake, responsive, follows simple instructions. Psychiatric blunted mood and affect. - Labs CBC & Chem 7: 06/12/20 03:53 06/12/20 03:53 Labs: Abnormal Lab Results - Last 24 Hours (Table) 06/11/20 06/11/20 06/12/20 Range/Units 17:27 23:59 03:53 WBC 23.2 H (3.8-10.6) k/uL RBC 2.70 L (3.80-5.40) m/uL Hgb 7.3 L (11.4-16.0) gm/dL Hct 26.9 L (34.0-46.0) % MCHC 27.2 L (31.0-37.0) g/dL RDW 18.6 H (11.5-15.5) % Plt Count 131 L D (150-450) k/uL Neutrophils # 19.9 H (1.3-7.7) k/uL Lymphocytes # 0.8 L (1.0-4.8) k/uL Monocytes # 1.8 H (0-1.0) k/uL Chloride (98-107) mmol/L BUN (7-17) mg/dL Creatinine (0.52-1.04) mg/dL Glucose (74-99) mg/dL POC Glucose (mg/dL) 138 H 138 H (75-99) mg/dL Urine RBC (0-5) /hpf Urine Bacteria (None) /hpf Hyaline Casts (0-2) /lpf Urine Mucus (None) /hpf 06/12/20 06/12/20 06/12/20 Range/Units 03:53 06:06 11:37 WBC (3.8-10.6) k/uL RBC (3.80-5.40) m/uL Hgb (11.4-16.0) gm/dL Hct (34.0-46.0) % MCHC (31.0-37.0) g/dL RDW (11.5-15.5) % Plt Count (150-450) k/uL Neutrophils # (1.3-7.7) k/uL Lymphocytes # (1.0-4.8) k/uL Monocytes # (0-1.0) k/uL Chloride 108 H (98-107) mmol/L BUN 96 H (7-17) mg/dL Creatinine 3.56 H (0.52-1.04) mg/dL Glucose 132 H (74-99) mg/dL POC Glucose (mg/dL) 135 H 131 H (75-99) mg/dL Urine RBC (0-5) /hpf Urine Bacteria (None) /hpf Hyaline Casts (0-2) /lpf Urine Mucus (None) /hpf 06/12/20 Range/Units 12:05 WBC (3.8-10.6) k/uL RBC (3.80-5.40) m/uL Hgb (11.4-16.0) gm/dL Hct (34.0-46.0) % MCHC (31.0-37.0) g/dL RDW (11.5-15.5) % Plt Count (150-450) k/uL Neutrophils # (1.3-7.7) k/uL Lymphocytes # (1.0-4.8) k/uL Monocytes # (0-1.0) k/uL Chloride (98-107) mmol/L BUN (7-17) mg/dL Creatinine (0.52-1.04) mg/dL Glucose (74-99) mg/dL POC Glucose (mg/dL) (75-99) mg/dL Urine RBC 11 H (0-5) /hpf Urine Bacteria Occasional H (None) /hpf Hyaline Casts 4 H (0-2) /lpf Urine Mucus Rare H (None) /hpf Assessment and Plan Assessment: Impression: Acute on chronic hypoxic respiratory failure, presented with complete opacification of the left lung and large left-sided pleural effusion, transudative in nature, however the color of the fluid today is suspicious for chylothorax. Significantly elevated triglycerides Acute left lower lobe pneumonia and possible septic shock on presentation. Morbid obesity with BMI of 74.2. Chronic hypoxic respiratory failure, normally on 2 L nasal cannula. Chronic kidney disease stage IV Chronic gastritis. Chronic diastolic congestive heart failure. Anemia of chronic kidney disease. Nonalcoholic fatty liver disease. COPD, ex-smoker. Presently inactive. Medical debility, patient is bed bound Chronic gout. Obstructive sleep apnea syndrome. Status post left sided tube thoracostomy on 06/10/20. This was done because the left lung was noted to be completely opacified again. Chronic Atrial fibrillation/flutter, recommended cardiac evaluation. In the meantime we'll place the patient on Lovenox 30 mg subcu daily Status post extubation on 06/09/20. Recommendation: Status post extubation on 06/09 Continue nasal cannula. Continue chest tube to suction. Considering bronchoscopy to evaluate the left lower lobe consolidation, however I have a strong feeling that the patient will not tolerated at this point. Continue antibiotics empirically. Continue amiodarone for atrial fibrillation with RVR. Continue hemodynamic support. Patient is presently on norepinephrine at 0.14 mcg/kg/m. Continue Lasix drip. Continue to monitor daily x-rays of the chest. Continue to monitor daily electrolytes and renal profile. Prognosis is extremely poor and guarded. We'll continue to follow, patient will eventually require placement. Time with Patient: Less than 30
--- NOTE | 2020-06-12 16:11 | PN ---
PROGRESS NOTE Mrs. Anand is a 70-year-old female with a known history of chronic persistent atrial fibrillation who presented with progressive dyspnea, was noted to have a whiteout left lung. She underwent a chest tube placement with some improvement in the expansion of the left lung. She had atrial fibrillation with some episode of rapid ventricular response. She had mild to moderate cardiomyopathy with severe pulmonary hypertension and severe tricuspid regurgitation. She continues to be on norepinephrine. Her oxygenation is better. Her breathing is better. She denies any chest pain. She denies any dizziness or palpitation. She continues to have peripheral edema. She continues to be at this time on IV amiodarone, aspirin Lipitor 40 mg daily and midodrine. PHYSICAL EXAMINATION: Blood pressure running in the 110s with the heart rate in the 100s, afebrile. Lungs with decreased breath sounds on the left base. Heart: Irregular, regular. S1, S2. No S3 with a systolic murmur. Abdomen: Soft, obese, nontender. Extremities: +1 to 2 edema bilaterally. Chest x-ray revealed persistent left-sided volume loss with atelectasis or infiltrate. Her BUN and creatinine are 96 and 3.56, potassium 4.7, hemoglobin is 7.3, however, white blood cell 23.2, which has increased compared to yesterday. IMPRESSION: 1. Whiteout of the left lung status post chest tube with persistent loss of volume. 2. Atrial fibrillation, chronic, not anticoagulated because of gastrointestinal bleeding. 3. Hypotension on norepinephrine. 4. Fluid overload with mild to moderately impaired left ventricular systolic function. 5. Morbid obesity. 6. Anemia. 7. History of obstructive sleep apnea. RECOMMENDATION: From the cardiac standpoint, will switch her to oral amiodarone. Also, low-dose beta shira hoping to maintain good control for blood pressure without affecting her blood pressure. Unfortunately, the prognosis remains poor in view of her lung status and the inability to expand her left lung. The patient is being evaluated for possible bronchoscopy, but at this time she is unstable to proceed with that. We will follow her renal function and depending on her progress, further recommendation will be made. MMODL / IJN: [id number] /
[2020-06-12 17:42] LABS: Glucose,Whole Blood 122 mg/dL (75-99)
[2020-06-12] MEDS: CHOLECALCIFEROL 1,000 UNIT TAB PO SCH (17:56)
[2020-06-12] MEDS: METOPROLOL TARTRATE 25 MG TAB PO SCH (20:28)
[2020-06-12] MEDS: ATORVASTATIN 40 MG TAB PO SCH (20:29)
[2020-06-12 23:54] LABS: Glucose,Whole Blood 109 mg/dL (75-99)
[2020-06-13] MEDS: FUROSEMIDE 100 MG in SODIUM CHLORIDE 0.9% 90 ML IV SCH ×3 (02:15→23:21)
[2020-06-13 04:57] LABS: Calcium 8.8 mg/dL (8.4-10.2); Potassium 4.7 mmol/L (3.5-5.1)
[2020-06-13 04:59] LABS: Anisocytosis Slight; Basophils # (A) 0.1 k/uL (0-0.2); Basophils % (A) 0 %; Eosinophils # (A) 0.2 k/uL (0-0.7); Eosinophils % (A) 1 %; HCT 25.9 % (34.0-46.0); HGB 7.1 gm/dL (11.4-16.0); Hypochromasia Marked; Lymphocytes # (A) 0.7 k/uL (1.0-4.8); Lymphocytes % (A) 4 %; MCH 27.2 pg (25.0-35.0); MCHC 27.2 g/dL (31.0-37.0); MCV 99.8 fL (80.0-100.0); Macrocytosis Moderate; Mean Platelet Volume 10.4; Monocytes % (A) 6 %; Neutrophils # (A) 14.4 k/uL (1.3-7.7); Neutrophils % (A) 87 %; Poikilocytosis Slight; RDW 18.9 % (11.5-15.5); WBC 16.7 k/uL (3.8-10.6)
[2020-06-13 05:00] LABS: Platelet Count 89 k/uL (150-450)
[2020-06-13 06:00] LABS: Glucose,Whole Blood 110 mg/dL (75-99)
[2020-06-13] MEDS: MIDODRINE 5 MG TAB PO SCH ×3 (06:31→17:26)
--- NOTE | 2020-06-13 07:49 | XR ---
EXAMINATION TYPE: XR chest 1V portable, semiupright DATE OF EXAM: 06/13/2020 Comparison: 06/12/2020 Clinical History: 70-year-old female effusion Findings: Left IJ CVC tip at the cavoatrial junction. Left-sided chest tube remains in place. Improving aeratio n left hemithorax but with persistent moderate effusion and left lower lung opacity. Small right effu nicole characterized by hazy density may be slightly increased. Mild interstitial prominence persists. Heart appears enlarged. Impression: 1. Cardiomegaly and interstitial prominence; correlate for CHF with mild pulmonary vascular congestio n. 2. Improving aeration on the left with decreased but persistent moderate left effusion with adjacent atelectasis and/or consolidation. Left-sided chest tube remains in place. 3. Note increasing small right effusion.
[2020-06-13] MEDS: NON FORMULARY DRUG (Linaclotide [Linzess] 145 MCG) PO SCH (07:50)
[2020-06-13] MEDS: INSULIN ASPART (NovoLOG) 100 UNIT/ML VIAL SQ SCH ×4 (07:50→19:33)
[2020-06-13] MEDS: IPRATROPIUM-ALBUTEROL 3 ML NEB INHALATION SCH ×4 (08:30→19:58)
--- NOTE | 2020-06-13 08:38 | P.PN ---
Subjective Progress Note Date: 06/13/20 Principal diagnosis: Left pleural effusion, acute hypercapnic respiratory failure, acute on chronic diastolic heart failure. Past medical history significant for chronic atrial fi brillation on no anticoagulation due to history of bleeding, chronic hypoxic respiratory failure on home oxygen, morbid obesity, hypertension, stage IV chronic kidney disease, chronic anemia, obstructive sleep apnea with home CPAP use, previous tobacco dependence, medical debility, osteoarthritis. Status post day #3 left chest tube placement. The patient was seen in follow-up today on 06/13/2020 at her bedside in the intensive care unit. The patient is awake, alert and oriented 3. Denies any complaints of pain or shortness of breath. Oxygen saturations are 100% on BiPAP support 10/03 with a rate of 10 and FiO2 40%. Left pleural chest tube remains in place to low continuous wall suction -20 cm H2O. No air air leak is present. 115 mL output in the last 8 hours of thin serosanguineous drainage and 365 mL output in the last 24 hours. Repeat chest x-ray this morning shows improving ae ration on the left with decreased but persistent moderate left pleural effusion with adjacent atelectasis and/or consolidation. Objective - Vital Signs Vital signs: Vital Signs Temp 97.6 F 06/13/20 04:00 Pulse 111 H 06/13/20 07:00 Resp 15 06/13/20 07:00 BP 134/73 06/12/20 11:00 Pulse Ox 98 06/13/20 07:00 Intake & Output 06/12/20 06/13/20 06/13/20 18:59 06:59 18:59 Intake Total 699.106 489.167 23 Output Total 943 605 20 Balance -243.894 -115.833 3 Weight 208.22 kg Intake: IV 376 276 23 0.9 pressure bag 36 36 3 Piperacillin-Tazobactam 3 100 .375 gm In Sodium Chloride 0.9% 100 ml @ 25 mls/hr IVPB Q12HR [facility] Rx #:[id number] Sodium Chloride 0.9% 1, 240 240 20 000 ml @ 20 mls/hr IV . Q24H [facility] Rx#:[id number] Intake, IV Titration 323.106 93.167 Amount Furosemide 100 mg In 100 93.167 Sodium Chloride 0.9% 90 ml @ 10 MG/HR 10 mls/hr IV .Q10H [facility] Rx#: [id number] Norepinephrine 32 mg In 223.106 Sodium Chloride 0.9% 218 ml @ 0.05 MCG/KG/MIN 4. 784 mls/hr IV .Q24H [facility] Rx#:[id number] Oral 120 Output: Chest Tube Drainage 210 155 Chest Tube Left Posterior 210 155 Chest Urine 733 450 20 Other: Voiding Method Indwelling Catheter Indwelling Catheter ABP, PAP, CO, CI - Last Documented Arterial Blood Pressure 115/56 - Constitutional General appearance: Present: cooperative, morbidly obese, no acute distress - EENT Eyes: Present: PERRLA, normal appearance. Absent: scleral icterus - Neck Details: Neck is supple, no JVD. - Respiratory Details: Lung sounds diminished to her bilateral bases, left greater than right. Respirations are symmetrical and nonlabored. Oxygen saturation are 100% on BiPAP 12/6 with a rate of 10 and FiO2 40%. Left pleural chest tube remains in place. No air leak is present. Draining thin serosanguineous drainage with 115 mL output in the last 8 hours, and 365 mL output in the last 24 hours. - Cardiovascular Details: Irregular rhythm with a tachycardic rate. S1 and S2 present, negative for S3, gallop or murmur. Bedside telemetry showing atrial fibrillation heart rate 112. Generalized edema. - Gastrointestinal Gastrointestinal Comment(s): Abdomen is soft, nontender and nondistended. Active bowel sounds present in all 4 abdominal quadrants. No guarding or rigidity. No organomegaly appreciated. - Genitourinary Genitourinary Comment(s): Arteaga catheter for accurate I&O. Draining clear coral urine. 325 mL output in the last 8 hours. - Integumentary Integumentary Comment(s): Skin is warm and dry. No clubbing or cyanosis is present. Dressing is clean, dry and in place to her left chest tube insertion site. - Neurologic Neurologic: Present: CNII-XII intact - Musculoskeletal Musculoskeletal: Present: generalized weakness, strength equal bilaterally - Psychiatric Psychiatric: Present: A&O x's 3, appropriate affect, intact judgment & insight - Allied health notes Allied health notes reviewed: nursing - Labs CBC & Chem 7: 06/13/20 04:32 06/13/20 04:32 Labs: Abnormal Lab Results - Last 24 Hours (Table) 06/12/20 06/12/20 06/12/20 Range/Units 11:37 12:05 17:41 WBC (3.8-10.6) k/uL RBC (3.80-5.40) m/uL Hgb (11.4-16.0) gm/dL Hct (34.0-46.0) % MCHC (31.0-37.0) g/dL RDW (11.5-15.5) % Plt Count (150-450) k/uL Neutrophils # (1.3-7.7) k/uL Lymphocytes # (1.0-4.8) k/uL Chloride (98-107) mmol/L BUN (7-17) mg/dL Creatinine (0.52-1.04) mg/dL Glucose (74-99) mg/dL POC Glucose (mg/dL) 131 H 122 H (75-99) mg/dL Urine RBC 11 H (0-5) /hpf Urine Bacteria Occasional H (None) /hpf Hyaline Casts 4 H (0-2) /lpf Urine Mucus Rare H (None) /hpf 06/12/20 06/13/20 06/13/20 Range/Units 23:52 04:32 04:32 WBC 16.7 H (3.8-10.6) k/uL RBC 2.60 L (3.80-5.40) m/uL Hgb 7.1 L (11.4-16.0) gm/dL Hct 25.9 L (34.0-46.0) % MCHC 27.2 L (31.0-37.0) g/dL RDW 18.9 H (11.5-15.5) % Plt Count 89 L (150-450) k/uL Neutrophils # 14.4 H (1.3-7.7) k/uL Lymphocytes # 0.7 L (1.0-4.8) k/uL Chloride 108 H (98-107) mmol/L BUN 98 H (7-17) mg/dL Creatinine 3.55 H (0.52-1.04) mg/dL Glucose 107 H (74-99) mg/dL POC Glucose (mg/dL) 109 H (75-99) mg/dL Urine RBC (0-5) /hpf Urine Bacteria (None) /hpf Hyaline Casts (0-2) /lpf Urine Mucus (None) /hpf 06/13/20 Range/Units 05:59 WBC (3.8-10.6) k/uL RBC (3.80-5.40) m/uL Hgb (11.4-16.0) gm/dL Hct (34.0-46.0) % MCHC (31.0-37.0) g/dL RDW (11.5-15.5) % Plt Count (150-450) k/uL Neutrophils # (1.3-7.7) k/uL Lymphocytes # (1.0-4.8) k/uL Chloride (98-107) mmol/L BUN (7-17) mg/dL Creatinine (0.52-1.04) mg/dL Glucose (74-99) mg/dL POC Glucose (mg/dL) 110 H (75-99) mg/dL Urine RBC (0-5) /hpf Urine Bacteria (None) /hpf Hyaline Casts (0-2) /lpf Urine Mucus (None) /hpf - Imaging and Cardiology Chest x-ray: report reviewed, image reviewed Assessment and Plan Assessment: 1. Left pleural effusion, S/P aborted thoracentesis, placement of Thoravent, cytology negative, fluid transudative in nature, status post left thoracostomy tube placement 2. Acute hypercapneic respiratory failure requiring mechanical ventilation, now on nasal cannula 3. Acute on chronic diastolic heart failure 4. Chronic atrial fibrillation on no anticoagulation due to history of bleeding 5. Chronic hypoxic respiratory failure, on home oxygen 6. Morbid obesity 7. History of hypertension 8. Stage IV chronic kidney disease 9. Chronic anemia 10. Obstructive sleep apnea with home Cpap use 11. Previous history of tobacco dependence 12. Medical debility, resides in [facility] 13. Osteoarthritis Plan: 1. Continue left pleural chest tube to wall suction at -20 cm H2O. Continue to record accurate I's and O's. 2. Wean O2 as tolerated. Bronchodilators, norepinephrine drip, antibiotics per pulmonology/critical care medicine recommendations. 3. Increase activity as tolerated. 4. Will monitor daily chest x-rays. 5. Management of other comorbidities per primary care service, other consultants. 6. More recommendations to follow based on patient's clinical course. Time with Patient: Greater than 30
[2020-06-13] MEDS: METOPROLOL TARTRATE 25 MG TAB PO SCH ×3 (09:10→20:37)
[2020-06-13] MEDS: CALCIUM ACETATE 667 MG TAB PO SCH (09:11)
[2020-06-13] MEDS: AMIODARONE 200 MG TAB PO SCH ×2 (09:11→20:37)
[2020-06-13] MEDS: allopurinoL 100 MG TAB PO SCH (09:11)
[2020-06-13] MEDS: ENOXAPARIN 30 MG/0.3 ML SYRINGE SQ SCH (09:11)
[2020-06-13] MEDS: SODIUM CHLORIDE 0.9% 1,000 ML IV SCH (09:12)
[2020-06-13] MEDS: PIPERACILLIN-TAZOBACTAM 3.375 GM in SODIUM CHLORIDE 0.9% 100 ML IVPB SCH ×2 (09:12→20:37)
[2020-06-13] MEDS: TRIAMCINOLONE 0.1% CREAM 80 GM TUBE TOPICAL SCH ×2 (09:13→20:38)
--- NOTE | 2020-06-13 10:10 | P.PN ---
Subjective Progress Note Date: 06/13/20 Follow-up for acute kidney injury. Urine output of 1500 ML's in the last 24 hours within net negative of 400 ML's.. Objective - Vital Signs Vital signs: Vital Signs Temp 97.1 F L 06/13/20 08:00 Pulse 111 H 06/13/20 09:00 Resp 12 06/13/20 09:00 BP 134/73 06/13/20 08:00 Pulse Ox 98 06/13/20 08:00 Intake & Output 06/12/20 06/13/20 06/13/20 18:59 06:59 18:59 Intake Total 699.106 489.167 293.255 Output Total 943 605 80 Balance -243.894 -115.833 213.255 Weight 208.22 kg Intake: IV 376 276 69 0.9 pressure bag 36 36 9 Piperacillin-Tazobactam 3 100 .375 gm In Sodium Chloride 0.9% 100 ml @ 25 mls/hr IVPB Q12HR [facility] Rx #:[id number] Sodium Chloride 0.9% 1, 240 240 60 000 ml @ 20 mls/hr IV . Q24H [facility] Rx#:[id number] Intake, IV Titration 323.106 93.167 224.255 Amount Furosemide 100 mg In 100 93.167 Sodium Chloride 0.9% 90 ml @ 10 MG/HR 10 mls/hr IV .Q10H [facility] Rx#: [id number] Norepinephrine 32 mg In 223.106 124.255 Sodium Chloride 0.9% 218 ml @ 0.05 MCG/KG/MIN 4. 784 mls/hr IV .Q24H [facility] Rx#:[id number] Piperacillin-Tazobactam 3 100 .375 gm In Sodium Chloride 0.9% 100 ml @ 25 mls/hr IVPB Q12HR [facility] Rx #:[id number] Oral 120 Output: Chest Tube Drainage 210 155 Chest Tube Left Posterior 210 155 Chest Urine 733 450 80 Other: Voiding Method Indwelling Catheter Indwelling Catheter ABP, PAP, CO, CI - Last Documented Arterial Blood Pressure 120/61 - Exam No acute distress S1-S2 heard Decreased breath sounds Abdomen soft Edema - Labs CBC & Chem 7: 06/13/20 04:32 06/13/20 04:32 Labs: Abnormal Lab Results - Last 24 Hours (Table) 08/06/12/20 06/12/20 Range/Units 11:37 12:05 17:41 WBC (3.8-10.6) k/uL RBC (3.80-5.40) m/uL Hgb (11.4-16.0) gm/dL Hct (34.0-46.0) % MCHC (31.0-37.0) g/dL RDW (11.5-15.5) % Plt Count (150-450) k/uL Neutrophils # (1.3-7.7) k/uL Lymphocytes # (1.0-4.8) k/uL Chloride (98-107) mmol/L BUN (7-17) mg/dL Creatinine (0.52-1.04) mg/dL Glucose (74-99) mg/dL POC Glucose (mg/dL) 131 H 122 H (75-99) mg/dL Urine RBC 11 H (0-5) /hpf Urine Bacteria Occasional H (None) /hpf Hyaline Casts 4 H (0-2) /lpf Urine Mucus Rare H (None) /hpf 06/12/20 06/13/20 06/13/20 Range/Units 23:52 04:32 04:32 WBC 16.7 H (3.8-10.6) k/uL RBC 2.60 L (3.80-5.40) m/uL Hgb 7.1 L (11.4-16.0) gm/dL Hct 25.9 L (34.0-46.0) % MCHC 27.2 L (31.0-37.0) g/dL RDW 18.9 H (11.5-15.5) % Plt Count 89 L (150-450) k/uL Neutrophils # 14.4 H (1.3-7.7) k/uL Lymphocytes # 0.7 L (1.0-4.8) k/uL Chloride 108 H (98-107) mmol/L BUN 98 H (7-17) mg/dL Creatinine 3.55 H (0.52-1.04) mg/dL Glucose 107 H (74-99) mg/dL POC Glucose (mg/dL) 109 H (75-99) mg/dL Urine RBC (0-5) /hpf Urine Bacteria (None) /hpf Hyaline Casts (0-2) /lpf Urine Mucus (None) /hpf 06/13/20 Range/Units 05:59 WBC (3.8-10.6) k/uL RBC (3.80-5.40) m/uL Hgb (11.4-16.0) gm/dL Hct (34.0-46.0) % MCHC (31.0-37.0) g/dL RDW (11.5-15.5) % Plt Count (150-450) k/uL Neutrophils # (1.3-7.7) k/uL Lymphocytes # (1.0-4.8) k/uL Chloride (98-107) mmol/L BUN (7-17) mg/dL Creatinine (0.52-1.04) mg/dL Glucose (74-99) mg/dL POC Glucose (mg/dL) 110 H (75-99) mg/dL Urine RBC (0-5) /hpf Urine Bacteria (None) /hpf Hyaline Casts (0-2) /lpf Urine Mucus (None) /hpf Assessment and Plan Assessment: #1 nonoliguric acute kidney injury secondary to ischemic ATN from cardiopulmonary arrest with hemodynamic instability. Renal function stable. #2 chronic kidney disease stage IV suspect nephrosclerosis with a baseline creatinine of 2.7-3.0 MG per DL. #3 diastolic CHF currently decompensated #4 status post PEA cardiac arrest #5 shock on levo fed #6 pneumothorax status post left-sided chest tube. Plan: #1 continue with Lasix 10 mg an hour. Feurea consistent with prerenal process. As renal function stable continue with current dose of diuretics. #2 continue with midodrine for hemodynamic support. #3 avoid nephrotoxic agents and hypotensive episodes.
--- NOTE | 2020-06-13 10:41 | PN ---
PROGRESS NOTE Mrs. Anand is a 70-year-old female with a history of chronic persistent atrial fibrillation who presented with progressive respiratory failure with white out to the left lung, initially was intubated. She is extubated at this time. She continues to be in atrial fibrillation with an episode of rapid ventricular response. She had chest tube with improvement in the expansion of the left lung. She has a known history of severe pulmonary hypertension and tricuspid regurgitation. She has morbid obesity. She continues to be at this time on amiodarone 400 mg twice a day, aspirin once a day, Lipitor 40 mg daily, metoprolol tartrate 12.5 mg twice a day. PHYSICAL EXAMINATION: Blood pressure running in the 120s with a heart rate 110's. Afebrile. Lungs with improvement in the aeration on the left side. Heart irregularly irregular S1, S2. No S3 with systolic ejection murmur. ABDOMEN: Soft, obese, nontender. EXTREMITIES +2 edema bilaterally. LAB DATA: BUN and creatinine 98 and 3.55, hemoglobin 7.1, white blood cell of 16.7. IMPRESSION: 1. White out right lung with chest tube in place improving. 2. Chronic persistent atrial fibrillation, not anticoagulated because recurrent episode of bleeding. 3. Morbid obesity. 4. Mild to moderately impaired left ventricular systolic function with severe pulmonary hypertension. 5. History of obstructive sleep apnea. 6. Anemia. 7. Renal failure. RECOMMENDATIONS: I will increase the dose of her beta shira. Continue rest of medical regimen. If there is no improvement in the renal failure, the patient may require dialysis. MMODL / IJN: [id number] /
[2020-06-13] MEDS: ASPIRIN 81 MG PO SCH (11:46)
[2020-06-13] MEDS: FOLIC ACID 1 MG TAB PO SCH (11:46)
[2020-06-13 11:50] LABS: Glucose,Whole Blood 138 mg/dL (75-99)
--- NOTE | 2020-06-13 12:43 | P.PN ---
Subjective Progress Note Date: 06/13/20 Principal diagnosis: Acute hypoxic respiratory failure and left lower lobe pneumonia, with pleural effusion. 70-year-old female patient, [facility] resident who was referred back to the emergency department because of worsening shortness of breath and hypoxemia. The patient had significant amount of weight gain in the order of 11 pounds over this past week. She also reported worsening lower extremity edema. She was unable to ambulate. She is currently bedbound. She is morbidly obese with a BMI of 34.2. No fever no chills. No aspiration. She has a mild cough. No c hest pain. The chest x-rays showing complete opacification of the left lung without any significant shift of the trachea or volume loss. The left mainstem bronchus is currently off. White cell count 9.3 with hemoglobin of 7.9. Coagulation profile is within normal. 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 Serum bicarb is 29 with a sodium of 138. The liver functions is on essentially within normal limits. Albumin is at 3.3 with a total protein of 6.9. ProBNP level was 11,300. Currently, the patient is on 2 L of oxygen by nasal cannula. Pulse ox and order of 97%. Long with stage IV kidney disease secondary to do hypertensive nephrosclerosis. She also has chronic anemia, chronic proximal atrial fibrillation, COPD, osteoarthritis, obstructive sleep apnea, gout and she Zyvox and dependent and she has home O2. She is medically debilitated and she is a left and a walker. She is a resident of a [facility]. During her most recent hospitalization, the anemia was further worked up by EGD EGD showed mild gastritis. There was mild duodenitis. There was a small hiatal hernia. 06/06/2020, the patient remains intubated on a mechanical ventilator. The patient is currently sedated with propofol running at 40 g per KG per minute. The patient is requiring low-dose norepinephrine infusion for blood pressure sup port and this is running at 0.0 mg per KG per minute. The patient is receiving enteral feeding with vital high protein at the rate of 50 mL an hour. The patient has a fluoroscopy vent on the left lung. A total of 700 mL of fluid was aspirated yesterday. The fluid is a bit bloody and creamy and esophagus and there is a possibility of a chylothorax. The initial analysis came back as a transudate with a low LDH and low protein. The fluid triglycerides still pending for now. Meanwhile, the patient had a follow-up chest x-ray today that showed that the Thoravent is adequate location. There is some improved aeration left upper lobe. His volume loss in the left lung along with some ongoing consolidation of left lower lobe. The ET tube is in a good location. The patient has some cardiomegaly. The patient is currently on assist control mode of ventilation. The patient is on a assist-control of 20 with a rate of 20 and a tidal volume of 400 and FiO2 of 50% and a PEEP of 5. The pH is at 7.47 with a pCO2 of 35 and pO2 of 232. The patient's peak air pressure is around 30 to anesthetic pressures somewhat elevated this is secondary and this is secondary to extrapulmonary restriction with elevation of the anesthetic pressures. Adequate urine output. Lasix was given by nephrology to dose of 40 mg 1. There is some edema lower extremities. Fluid cytology from the left lung is still pending for now. On 06/07/20, patient remains in the ICU, intubated and mechanically ventilated. She is on assist control rate of 28, FiO2 is 40%, tidal volume is 400 and PEEP of 5. ABG showed a pO2 of 164 pCO2 of 36 and pH of 7.47. Patient remains sedated, on propofol at 20 mcg/kg/m, she is also on norepinephrine at 0.02 mcg/kg/m. Ventilator settings were changed to assist control rate of 24 and FiO2 was decreased down to 35%. Patient is in atrial fibrillation however her rate seems to be well-controlled. Continues to have a left sided chest tube/thoravent in place. Continues to have significant consolidation of the left lower lobe. Patient is now draining significantly yellow fluid possible chylothorax noted, triglycerides were ordered on the fluid. She also received a unit of packed RBCs today for hemoglobin of 6.7. That triglycerides level on the pleural effusion is pending. Patient was reevaluated today on 06/08/2020, remains in the ICU, intubated and mechanically ventilated. Patient is on assist control rate of 24 tidal volume is 400 FiO2 is 35% and PEEP of 5. ABG showed a pO2 of 60 pCO2 43 pH of 7.42, hence her FiO2 was increased to 40%. Patient remains on norepinephrine at 0.02 g/kg/m, she is off propofol this morning, and I plan to assess her mental status. According to the nurse the patient didn't follow simple instructions yesterday off propofol. Chest x-ray continues to show evidence of bibasilar opacities especially opacity over the left hemithorax, thoravent remains in place, however not draining, and there is no air leak. I plan to It, and possibly discontinue this in the next 24-48 hours. Review the results of her last bronchoscopy, blood cultures are nondiagnostic. Patient remains on TPN feeding, she is up to goal, patient remains on Lasix, she remains in atrial fibrillation with controlled rate. CBC showed a hemoglobin of 7 and electrolytes are normal renal profile is poor with BUN of 84 creatinine 3.29. Not much oil changer the last 6 days. Blood cultures and sputum cultures as well as pleural effusion cultures are all negative. Triglycerides on the pleural effusion is still pending. Patient was reevaluated today on 06/09/20, remains in the intensive care unit, intubated and mechanically ventilated. Her ventilator settings are assist control rate of 24, tidal volume is 400 FiO2 is 40% and PEEP is 5 ABG showed a pO2 of 88 pCO2 of 45 pH of 7.41. Patient remains on norepinephrine at 2 mcg/m, off propofol this morning, awake, arousable, and follows simple instructions. Patient is in atrial fibrillation with a rate of 74, again blood pressure is marginal. Her urine output is about 40-100 mL/h, remains on Lasix. Chest x-ray continues to show significant opacity in the left lower lobe area, difficult to tell how much of this is fluid or how much of it is atelectasis. The chest tube is not draining anything at this point, and it is now Plan to remove it in the next 24 hours. Considering the patient is following instructions, I went ahead and recommended a trial of pressure support of 14 and CPAP. Renal functioning remains poor with a BUN of 88 creatinine 3.06. Electrolytes are normal. WBC co unt is 11.8 hemoglobin is 7.9. Patient was reevaluated today on 06/10/20, patient tolerated a good trial of pressure support and CPAP yesterday, and early evening the patient was noted to have ABG on a pressure support of 6 and CPAP, hence I recommended extubating the patient. Patient was extubated uneventfully but she was extubated to BiPAP. Today I evaluated the patient, she seems to be comfortable on BiPAP, however her chest x-ray shows again complete opacification of the left lung. Connected to her thoravent to wall suction, and no fluid was obtained. Ultrasound showed fluid, but lung tissue was noted, hence could not perform a thoracentesis. Consulted Dr. Isaac who placed at bedside chest tube and significant amount of fluid was drained from the left side of the chest. Follow-up chest x-ray showed significant improvement, and better aeration to the left lung. Fluid will be s ent again for different diagnostic studies including cultures and including LDH protein glucose as well as cytology. Patient is now on BiPAP with IPAP of 12 EPAP of 6 FiO2 is 40%. IV fluid is at KVO. Patient is hemodynamically stable, not requiring any pressors, patient is arousable, follows simple instructions. WBC count is 13.2 hemoglobin is 7.3 electrolytes are normal BUN is 100 creatinine is 2.97 Reevaluated today on 06/11/20, remains in the ICU, weaned and extubated 3 days ago, patient had a chest tube placed by thoracic surgery and continues to have fairly good amount of serosanguineous fluid coming out of the left chest. No air leak, lung seems to be expanded, left lower lobe remains consolidated. And patient is now on 2 L nasal cannula with O2 saturation of 99%. She is hypot ensive and hypothermic, hence I recommended serum cortisol and thyroid profile to be done on this patient. Total amount of fluid from the chest tube about 1100 mL of serosanguineous material over the last 24 hours. Patient is awake, arousable, follows instructions, remains in atrial fibrillation with RVR, and I recommended starting the patient on amiodarone. Cardiac consultation was initiated. Renal functioning remains marginal, wondering of the patient will eventually require possibly dialysis Reevaluated today on 06/12/20, patient remains in the ICU, on nasal cannula, presently on 4 L/m, O2 saturations 100%. She is however requiring amiodarone for her atrial fibrillation with RVR, she is on norepinephrine for low blood pressure, and on Lasix at 10 mg per hour. Remains on Zosyn, she had 1200 mL of urine output in the last 24 hours, and continues to put out 40 mL per hour with the Lasix drip. However the patient is in atrial fibrillation with RVR, chest x-ray is showing worsening consolidation in the left lower lobe, I was considering bronchoscopy, however the patient is not stable enough for bronchoscopy at this point. Plus she is on norepinephrine for hemodynamic support. Will hold on bronchoscopy for now, and we'll arrange for cardiology to reevaluate regarding her atrial fibrillation and RVR. CBC showed WBC count of 23.2 hemoglobin is 7.3 restarted the patient on Zosyn. Basic metabolic profile is normal BUN is 96 creatinine 3.56. Patient does not seem to be making much improvement although she was extubated 4 days ago. Reevaluated today on 06/13/20, remains in the ICU, placed on BiPAP overnight, but she is on nasal cannula during the day. Patient is arousable, follows simple instructions, basically asymptomatic. Her O2 saturations 100% on BiPAP with I PAP of 12 EPAP of 6. FiO2 is 40%. Continues to have a left-sided chest tube, drained 115 mL in the last 8 hours and 365 in the last 24 hours. Chest x-ray this morning showed improved aeration of the left lung, continues to have left lower lobe consolidation and atelectasis, have no plans to perform bronchoscopy on this patient at this point now. She did have previous bronchoscopy by Dr. James when she was on mechanical ventilation. And there was no evidence of endobronchial tumors or mucous plugs. Patient remains on Lasix drip, total urine output in the last 24 hours is 1500 MLS, however the patient seems to be clinically dehydrated, and I went ahead and cut down the Lasix to 5 mg per hour. Today, the patient is still on norepinephrine at 0.05 mcg/kg/m, IV fluid is at KVO, and she is on Lopressor and amiodarone for her atrial fibrillation which seems to be better controlled today Objective - Vital Signs Vital signs: Vital Signs Temp 97.1 F L 06/13/20 12:00 Pulse 102 H 06/13/20 12:17 Resp 13 06/13/20 12:00 BP 134/73 06/13/20 08:00 Pulse Ox 98 06/13/20 12:00 Intake & Output 06/12/20 06/13/20 06/13/20 18:59 06:59 18:59 Intake Total 699.106 489.167 566.255 Output Total 943 605 185 Balance -243.894 -115.833 381.255 Weight 208.22 kg Intake: IV 376 276 138 0.9 pressure bag 36 36 18 Piperacillin-Tazobactam 3 100 .375 gm In Sodium Chloride 0.9% 100 ml @ 25 mls/hr IVPB Q12HR [facility] Rx #:[id number] Sodium Chloride 0.9% 1, 240 240 120 000 ml @ 20 mls/hr IV . Q24H [facility] Rx#:[id number] Intake, IV Titration 323.106 93.167 308.255 Amount Furosemide 100 mg In 100 93.167 84 Sodium Chloride 0.9% 90 ml @ 10 MG/HR 10 mls/hr IV .Q10H [facility] Rx#: [id number] Norepinephrine 32 mg In 223.106 124.255 Sodium Chloride 0.9% 218 ml @ 0.05 MCG/KG/MIN 4. 784 mls/hr IV .Q24H [facility] Rx#:[id number] Piperacillin-Tazobactam 3 100 .375 gm In Sodium Chloride 0.9% 100 ml @ 25 mls/hr IVPB Q12HR [facility] Rx #:[id number] Oral 120 120 Output: Chest Tube Drainage 210 155 Chest Tube Left Posterior 210 155 Chest Urine 733 450 185 Other: Voiding Method Indwelling Catheter Indwelling Catheter ABP, PAP, CO, CI - Last Documented Arterial Blood Pressure 98/49 - Exam Very pleasant 70-year-old female patient, morbidly obesity on BiPAP this a.m. Head exam atraumatic, normocephalic. Short obese neck. Neck is supple and without jugular venous distension, thyromegaly, or carotid bruits. Carotids were easily palpable bilaterally. Cardiac exam distant S1 and S2, no S3 gallop, no murmur could be appreciated. Irregular irregular rhythm noted. Lungs symmetrical chest expansion, diminished breath sounds on the left side, left sided chest tube is noted, drainage as noted earlier. Abdominal exam revealed morbidly obese, nontender, no megaly, no rebound Examination of the extremities revealed bipedal edema, diminished distal pulses bilaterally. Examination of the skin revealed no evidence of significant rashes, Neurologically, awake, responsive, follows simple instructions. Psychiatric blunted mood and affect. - Labs CBC & Chem 7: 06/13/20 04:32 06/13/20 04:32 Labs: Abnormal Lab Results - Last 24 Hours (Table) 06/12/20 06/12/20 06/13/20 Range/Units 17:41 23:52 04:32 WBC 16.7 H (3.8-10.6) k/uL RBC 2.60 L (3.80-5.40) m/uL Hgb 7.1 L (11.4-16.0) gm/dL Hct 25.9 L (34.0-46.0) % MCHC 27.2 L (31.0-37.0) g/dL RDW 18.9 H (11.5-15.5) % Plt Count 89 L (150-450) k/uL Neutrophils # 14.4 H (1.3-7.7) k/uL Lymphocytes # 0.7 L (1.0-4.8) k/uL Chloride (98-107) mmol/L BUN (7-17) mg/dL Creatinine (0.52-1.04) mg/dL Glucose (74-99) mg/dL POC Glucose (mg/dL) 122 H 109 H (75-99) mg/dL 06/13/20 06/13/20 06/13/20 Range/Units 04:32 05:59 11:49 WBC (3.8-10.6) k/uL RBC (3.80-5.40) m/uL Hgb (11.4-16.0) gm/dL Hct (34.0-46.0) % MCHC (31.0-37.0) g/dL RDW (11.5-15.5) % Plt Count (150-450) k/uL Neutrophils # (1.3-7.7) k/uL Lymphocytes # (1.0-4.8) k/uL Chloride 108 H (98-107) mmol/L BUN 98 H (7-17) mg/dL Creatinine 3.55 H (0.52-1.04) mg/dL Glucose 107 H (74-99) mg/dL POC Glucose (mg/dL) 110 H 138 H (75-99) mg/dL Assessment and Plan Assessment: Impression: Acute on chronic hypoxic respiratory failure, presented with complete opaci fication of the left lung and large left-sided pleural effusion, transudative in nature, however the color of the fluid today is suspicious for chylothorax. Significantly elevated triglycerides Acute left lower lobe pneumonia and possible septic shock on presentation. Morbid obesity with BMI of 74.2. Chronic hypoxic respiratory failure, normally on 2 L nasal cannula. Chronic kidney disease stage IV Chronic gastritis. Chronic diastolic congestive heart failure. Anemia of chronic kidney disease. Nonalcoholic fatty liver disease. COPD, ex-smoker. Presently inactive. Medical debility, patient is bed bound Chronic gout. Obstructive sleep apnea syndrome. Status post left sided tube thoracostomy on 06/10/20. This was done because the left lung was noted to be completely opacified again. Chronic Atrial fibrillation/flutter, recommended cardiac evaluation. In the meantime we'll place the patient on Lovenox 30 mg subcu daily Status post extubation on 06/09/20. Recommendation: Status post extubation on 06/09 Continue nasal cannula. And BiPAP at night. Continue chest tube to suction. Considering bronchoscopy to evaluate the left lower lobe consolidation, however I have a strong feeling that the patient will not tolerated at this point. Continue antibiotics empirically. Continue amiodarone for atrial fibrillation with RVR. Continue hemodynamic support. Continue norepinephrine. Continue Lasix drip. However will cut down the dose down to 5 mg per hour, patient is clinically dehydrated. And blood pressure is marginal requiring norepinephrine. Continue to monitor daily x-rays of the chest. Continue to monitor daily electrolytes and renal profile. Prognosis is extremely poor and guarded. We'll continue to follow, patient will eventually require placement. Time with Patient: Less than 30
--- NOTE | 2020-06-13 12:49 | P.PN ---
Subjective Progress Note Date: 06/11/20 Principal diagnosis: fluid overload This is a pleasant 70-year-old patient was chronic stable medical conditions include CHF EF 55 and 55%, morbid obesity, chronic kidney disease stage IV secondary to nephrosclerosis, renal bone disease, anemia of chronic kidney disease, persistent atrial fibrillation, fatty liver, COPD, primary osteoarthritis, obstructive sleep apnea, chronic gout, on home oxygen, chronic medical debility at her baseline uses a lift a wheelchair. Patient is a resident at [facility]. Patient presents with increasing swelling about a week. Increase in shortness of breath. Appetite is okay. Bowel movements are okay. No fever no chills. Started on IV Lasix. Admitted with CHF exacerbation. Put on IV Lasix. On June 04 -was taken to for thoracentesis and it was a bit difficult by IR. Patient went into PEA cardiac arrest. intubated. Hypotensive. Moved to ICU. Thora-vent was placed. About 850 mL of pus-bloody fluid was obtained. [id number]. On the ventilator. Telemetry shows sinus rhythm. Left chest tube to suction. On IV levo fed and propofol. Tube feeding. Granddaughter at the bedside. 06/08/2020 Patient is currently mechanical ventilator and is being monitored in the ICU. Sedated. low dose levophed. Chest x-ray showed cardiomegaly with central vascular congestion and small to moderate sized bilateral pleural fluid collections with the left sided pleural drainage catheter. Bronchial fluid cultures negative so far. Laboratory data showed WBC 8.2, hemoglobin 7.0 and platelets 87 BUN 84 and creatinine 3.29 Albumin 2.2 06/09/2020 Patient remains on ventilator and is currently sedated. Patient is also on Levophed drip. Chest x-ray showed suspect some improvement in patient's volume status. There may be basilar effusions. Atelectasis, difficult to exclude pneumonia. Patient does have chest tube with minimal drainage. Laboratory data showed WBC 11.8, hemoglobin 7.9 and platelets 87 BUN 88 and creatinine 3.06 Pulmonary and nephrology is on board. 06/10/2020 Patient is currently extubated and is saturating well on oxygen via nasal cannula. Patient is otherwise awake alert and trying to communicate. Chest x-ray this morning showed improving aeration of the left especially in the upper and midlung after left-sided chest tube placement. Focal opacity remains at the left base as well as trace right effusion. 2D echocardiogram showed ejection fraction 40 to 45% there is severe tricuspid regurgitation present. Severe pulmonary hypertension. Left ventricle systolic pressure is 84.96 mmHg. Laboratory data showed WBC 13.2, hemoglobin 7.3 and platelets 83 BUN 100 and creatinine 2.97 06/11/2020 Patient is currently remained ICU. Awake alert but not communicating. Patient is off the ventilator. Currently on oxygen via nasal cannula. Patient is status post chest tube placement. Repeat chest x-ray showed lung seems expanded but left lower lobe remains consolidated. Patient is still on Levophed drip at low-dose. Patient went into A. fib with RVR and was started on amiodarone drip. Cardiology was consulted. Creatinine level is elevated. Nephrology is following. Complete review of systems could not be obtained from the patient. Active Medications Acetaminophen (Tylenol Tab) 650 mg PO Q4H PRN PRN Reason: Pain or Fever > 100.5 Acetaminophen/Codeine Phosphate (Tylenol #3) 1 each PO TID PRN PRN Reason: Pain Last Admin: 06/04/20 01:23 Dose: 1 each Documented by: Albuterol/Ipratropium (Duoneb 0.5 Mg-3 Mg/3 Ml Soln) 3 ml INHALATION RT-QID [facility] Last Admin: 06/09/20 19:48 Dose: 3 ml Documented by: Allopurinol (Zyloprim) 100 mg PO DAILY@0800 [facility] Last Admin: 06/09/20 09:17 Dose: 100 mg Documented by: Aspirin (Aspirin) 81 mg PO DAILY@1200 [facility] Last Admin: 06/09/20 13:12 Dose: 81 mg Documented by: Atorvastatin Calcium (Lipitor) 40 mg PO HS@2100 [facility] Last Admin: 06/09/20 21:36 Dose: Not Given Documented by: Bisacodyl (Dulcolax) 10 mg RECTAL DAILY PRN PRN Reason: Constipation Last Admin: 06/03/20 10:28 Dose: 10 mg Documented by: Calcitriol (Rocaltrol) 0.25 mcg PO DAILY@1700 [facility] Last Admin: 06/09/20 16:38 Dose: 0.25 mcg Documented by: Calcium Acetate (Phoslo) 667 mg PO DAILY@0800 [facility] Last Admin: 06/09/20 09:16 Dose: 667 mg Documented by: Chlorhexidine Gluconate (Peridex) 15 ml MUCOUS MEM BID [facility] Last Admin: 06/09/20 22:15 Dose: 15 ml Documented by: Cholecalciferol (Vitamin D3 (25 Mcg = 1000 Iu)) 2,000 unit PO DAILY@1700 [facility] Last Admin: 06/09/20 16:38 Dose: 2,000 unit Documented by: Darbepoetin Juan Jose (Aranesp) 60 mcg SQ TH [facility] Last Admin: 06/03/20 15:58 Dose: 60 mcg Documented by: Folic Acid (Folic Acid) 1 mg PO DAILY@1200 [facility] Last Admin: 06/09/20 13:12 Dose: 1 mg Documented by: Furosemide (Lasix) 60 mg IV BID [facility] Last Admin: 06/09/20 22:15 Dose: 60 mg Documented by: Norepinephrine Bitartrate 32 (mg/ Sodium Chloride) 250 mls @ 4.784 mls/hr IV .Q24H [facility]; Protocol Last Titration: 06/09/20 19:30 Dose: 0 mcg/kg/min, 0 mls/hr Documented by: Piperacillin Sod/Tazobactam (Sod 3.375 gm/ Sodium Chloride) 100 mls @ 25 mls/hr IVPB Q12HR [facility] Last Admin: 06/09/20 22:15 Dose: 25 mls/hr Documented by: Sodium Chloride (Saline 0.9%) 1,000 mls @ 20 mls/hr IV .Q24H [facility] Last Admin: 06/09/20 08:00 Dose: 20 mls/hr Documented by: Insulin Aspart (Novolog) 0 unit SQ Q6H [facility]; Protocol Last Admin: 06/09/20 17:42 Dose: Not Given Documented by: Lactulose (Cephulac) 10 gm PO BID PRN PRN Reason: Constipation Last Admin: 06/08/20 20:30 Dose: 10 gm Documented by: Loratadine (Claritin) 10 mg PO Q48H PRN PRN Reason: Allergy Symptoms Magnesium Hydroxide (Milk Of Magnesia) 2,400 mg PO DAILY PRN PRN Reason: Constipation Midodrine (Proamatine) 5 mg PO AC-TID [facility] Last Admin: 06/09/20 16:38 Dose: 5 mg Documented by: Non-Formulary Medication (Linaclotide [Linzess]) 145 mcg PO DAILY@0800 [facility] Last Admin: 06/09/20 09:17 Dose: Not Given Documented by: Ondansetron HCl (Zofran) 4 mg IVP Q6HR PRN PRN Reason: Nausea And Vomiting Last Admin: 06/04/20 05:36 Dose: 4 mg Documented by: Senna (Senokot) 8.6 - 17.2 mg PO HS PRN PRN Reason: Constipation Last Admin: 06/08/20 20:30 Dose: 8.6 mg Documented by: Triamcinolone Acetonide (Kenalog) 1 applic TOPICAL BID [facility] Last Admin: 06/09/20 22:12 Dose: Not Given Documented by: Objective - Vital Signs Vital signs: Vital Signs Temp 98.4 F 06/11/20 12:00 Pulse 121 H 06/11/20 15:30 Resp 9 L 06/11/20 15:30 BP 134/73 06/11/20 11:00 Pulse Ox 96 06/11/20 15:30 Intake & Output 06/10/20 06/11/20 06/11/20 18:59 06:59 18:59 Intake Total 412.773 312 269.678 Output Total 2475 1055 270 Balance -2062.227 -743 -0.322 Weight 204.797 kg 204.797 kg Intake: IV 412 312 176 0.9 pressure bag 72 72 36 Piperacillin-Tazobactam 3 100 .375 gm In Sodium Chloride 0.9% 100 ml @ 25 mls/hr IVPB Q12HR [facility] Rx #:[id number] Sodium Chloride 0.9% 1, 240 240 140 000 ml @ 20 mls/hr IV . Q24H [facility] Rx#:[id number] Intake, IV Titration 0.773 23.678 Amount Norepinephrine 32 mg In 0.773 23.678 Sodium Chloride 0.9% 218 ml @ 0.05 MCG/KG/MIN 4. 784 mls/hr IV .Q24H [facility] Rx#:[id number] Tube Feeding 40 Other 30 Output: Chest Tube Drainage 1290 220 Chest Tube Left Posterior 1250 220 Chest Left Upper Anterior Chest 40 Urine 1185 835 270 Other: Voiding Method Indwelling Catheter Indwelling Catheter ABP, PAP, CO, CI - Last Documented Arterial Blood Pressure 94/49 - Exam GENERAL: Laying in bed, awake and alert EYES: Pupils equal. Conjunctiva normal. HEENT: External appearance of nose and ears normal, oral cavity-endotracheal tube NECK: JVD unable to assess masses not palpable. HEART: First and second heart sounds are normal; no edema. LUNGS: Respiratory rate increased, distant breath [id number] chest tube ABDOMEN: Soft, nontender, liver spleen not palpable, no masses palpable. PSYCH: cooperative MUSCULAR skeletal: [place] - Labs CBC & Chem 7: 06/13/20 04:32 06/13/20 04:32 Labs: Abnormal Lab Results - Last 24 Hours (Table) 06/11/20 06/11/20 06/11/20 Range/Units 04:40 04:40 04:40 WBC 12.8 H (3.8-10.6) k/uL RBC 2.53 L (3.80-5.40) m/uL Hgb 7.1 L (11.4-16.0) gm/dL Hct 25.1 L (34.0-46.0) % MCHC 28.2 L (31.0-37.0) g/dL RDW 18.0 H (11.5-15.5) % Plt Count 76 L (150-450) k/uL Chloride 110 H (98-107) mmol/L BUN 94 H (7-17) mg/dL Creatinine 3.20 H (0.52-1.04) mg/dL POC Glucose (mg/dL) (75-99) mg/dL TSH 5.720 H (0.465-4.680) mIU/L 06/11/20 Range/Units 11:30 WBC (3.8-10.6) k/uL RBC (3.80-5.40) m/uL Hgb (11.4-16.0) gm/dL Hct (34.0-46.0) % MCHC (31.0-37.0) g/dL RDW (11.5-15.5) % Plt Count (150-450) k/uL Chloride (98-107) mmol/L BUN (7-17) mg/dL Creatinine (0.52-1.04) mg/dL POC Glucose (mg/dL) 104 H (75-99) mg/dL TSH (0.465-4.680) mIU/L Assessment and Plan Assessment: -s/p Cardiac arrest with PEA -Acute hypoxic, hypercapnic respiratory failure-requiring ventilator support- slow to respond. extubated now. -Left-sided pleural effusion and consolidation. Status post chest tube placement -New onset A. fib with RVR. -Hypotensive shock requiring pressor support. possibe Septic shock due to Pneumonia -Acute on Chronic congestive heart failure from diastolic dysfunction - Severe pulmonary hypertension and severe TR. - Acute kidney injury secondary to ATN secondary to cardiac arrest/hemodynamic instability. -Chronic kidney disease stage IV secondary to nephrosclerosis with some worsening -Morbid obesity BMI 75.2 -Chronic kidney disease renal bone disease -Anemia of chronic kidney disease -Persistent atrial fibrillation, rate controlled Nonalcoholic fatty liver disease -COPD in an ex-smoker -Primary osteoarthritis -Obstructive sleep apnea -Chronic gout -Chronic hypoxic respiratory failure from COPD -Chronic medical debility and a baseline patient does use a lift to a wheelchair -Thoracentesis with the Thora-vent in place Plan: Patient is currently extubated. Was started on amiodarone drip due to if with RVR new onset. Cardiology was consulted. Continue with aspirin statins and also on IV Lasix 60 mg twice daily. Continue with midodrine. Antibiotics include IV Zosyn. Other medications to continue. Prognosis guarded. 2D echocardiogram showed ejection fraction 40 to 45%. Time with Patient: Greater than 30
[2020-06-13] MEDS: CHOLECALCIFEROL 1,000 UNIT TAB PO SCH (17:26)
[2020-06-13 17:32] LABS: Glucose,Whole Blood 122 mg/dL (75-99)
[2020-06-13] MEDS: ATORVASTATIN 40 MG TAB PO SCH (20:37)
[2020-06-13] MEDS: NOREPINEPHRINE 32 MG in SODIUM CHLORIDE 0.9% 218 ML IV SCH (23:40)
--- NOTE | 2020-06-13 23:44 | P.PN ---
Subjective Progress Note Date: 06/12/20 Principal diagnosis: fluid overload This is a pleasant 70-year-old patient was chronic stable medical conditions include CHF EF 55 and 55%, morbid obesity, chronic kidney disease stage IV secondary to nephrosclerosis, renal bone disease, anemia of chronic kidney disease, persistent atrial fibrillation, fatty liver, COPD, primary osteoarthritis, obstructive sleep apnea, chronic gout, on home oxygen, chronic medical debility at her baseline uses a lift a wheelchair. Patient is a resident at [facility]. Patient presents with increasing swelling about a week. Increase in shortness of breath. Appetite is okay. Bowel movements are okay. No fever no chills. Started on IV Lasix. Admitted with CHF exacerbation. Put on IV Lasix. On June 04 -was taken to for thoracentesis and it was a bit difficult by IR. Patient went into PEA cardiac arrest. intubated. Hypotensive. Moved to ICU. Thora-vent was placed. About 850 mL of pus-bloody fluid was obtained. [id number]. On the ventilator. Telemetry shows sinus rhythm. Left chest tube to suction. On IV levo fed and propofol. Tube feeding. Granddaughter at the bedside. 06/08/2020 Patient is currently mechanical ventilator and is being monitored in the ICU. Sedated. low dose levophed. Chest x-ray showed cardiomegaly with central vascular congestion and small to moderate sized bilateral pleural fluid collections with the left sided pleural drainage catheter. Bronchial fluid cultures negative so far. Laboratory data showed WBC 8.2, hemoglobin 7.0 and platelets 87 BUN 84 and creatinine 3.29 Albumin 2.2 06/09/2020 Patient remains on ventilator and is currently sedated. Patient is also on Levophed drip. Chest x-ray showed suspect some improvement in patient's volume status. There may be basilar effusions. Atelectasis, difficult to exclude pneumonia. Patient does have chest tube with minimal drainage. Laboratory data showed WBC 11.8, hemoglobin 7.9 and platelets 87 BUN 88 and creatinine 3.06 Pulmonary and nephrology is on board. 06/10/2020 Patient is currently extubated and is saturating well on oxygen via nasal cannula. Patient is otherwise awake alert and trying to communicate. Chest x-ray this morning showed improving aeration of the left especially in the upper and midlung after left-sided chest tube placement. Focal opacity remains at the left base as well as trace right effusion. 2D echocardiogram showed ejection fraction 40 to 45% there is severe tricuspid regurgitation present. Severe pulmonary hypertension. Left ventricle systolic pressure is 84.96 mmHg. Laboratory data showed WBC 13.2, hemoglobin 7.3 and platelets 83 BUN 100 and creatinine 2.97 06/11/2020 Patient is currently remained ICU. Awake alert but not communicating. Patient is off the ventilator. Currently on oxygen via nasal cannula. Patient is status post chest tube placement. Repeat chest x-ray showed lung seems expanded but left lower lobe remains consolidated. Patient is still on Levophed drip at low-dose. Patient went into A. fib with RVR and was started on amiodarone drip. Cardiology was consulted. Creatinine level is elevated. Nephrology is following. 06/12/2020 Patient is currently in MICU. Awake alert and oriented but communicating very slowly. Able to follow simple commands. Continued on Lasix drip. Patient is also reporting Levophed drip. Amiodarone drip due to atrial fibrillation with RVR. Chest x-ray showed persistent left-sided volume loss with worsening left lung opacity despite chest tube in place. Suggests worsening left-sided pleural effusion and associated left lung atelectasis and/or infiltrate. Patient is being continued on antibiotics in the form of Zosyn. Cardiology, pulmonary and nephrology is on board. Laboratory data showed WBC 23.2, hemoglobin 7.3, platelets 131 BUN 96 and creatinine 3.56 Urinalysis is negative for infection. Patient has been afebrile. Complete review of systems could not be obtained from the patient. Active Medications Acetaminophen (Tylenol Tab) 650 mg PO Q4H PRN PRN Reason: Pain or Fever > 100.5 Acetaminophen/Codeine Phosphate (Tylenol #3) 1 each PO TID PRN PRN Reason: Pain Last Admin: 06/04/20 01:23 Dose: 1 each Documented by: Albuterol/Ipratropium (Duoneb 0.5 Mg-3 Mg/3 Ml Soln) 3 ml INHALATION RT-QID [facility] Last Admin: 06/09/20 19:48 Dose: 3 ml Documented by: Allopurinol (Zyloprim) 100 mg PO DAILY@0800 [facility] Last Admin: 06/09/20 09:17 Dose: 100 mg Documented by: Aspirin (Aspirin) 81 mg PO DAILY@1200 [facility] Last Admin: 06/09/20 13:12 Dose: 81 mg Documented by: Atorvastatin Calcium (Lipitor) 40 mg PO HS@2100 [facility] Last Admin: 06/09/20 21:36 Dose: Not Given Documented by: Bisacodyl (Dulcolax) 10 mg RECTAL DAILY PRN PRN Reason: Constipation Last Admin: 06/03/20 10:28 Dose: 10 mg Documented by: Calcitriol (Rocaltrol) 0.25 mcg PO DAILY@1700 [facility] Last Admin: 06/09/20 16:38 Dose: 0.25 mcg Documented by: Calcium Acetate (Phoslo) 667 mg PO DAILY@0800 [facility] Last Admin: 06/09/20 09:16 Dose: 667 mg Documented by: Chlorhexidine Gluconate (Peridex) 15 ml MUCOUS MEM BID [facility] Last Admin: 06/09/20 22:15 Dose: 15 ml Documented by: Cholecalciferol (Vitamin D3 (25 Mcg = 1000 Iu)) 2,000 unit PO DAILY@1700 [facility] Last Admin: 06/09/20 16:38 Dose: 2,000 unit Documented by: Darbepoetin Juan Jose (Aranesp) 60 mcg SQ TH [facility] Last Admin: 06/03/20 15:58 Dose: 60 mcg Documented by: Folic Acid (Folic Acid) 1 mg PO DAILY@1200 [facility] Last Admin: 06/09/20 13:12 Dose: 1 mg Documented by: Furosemide (Lasix) 60 mg IV BID [facility] Last Admin: 06/09/20 22:15 Dose: 60 mg Documented by: Norepinephrine Bitartrate 32 (mg/ Sodium Chloride) 250 mls @ 4.784 mls/hr IV .Q24H [facility]; Protocol Last Titration: 06/09/20 19:30 Dose: 0 mcg/kg/min, 0 mls/hr Documented by: Piperacillin Sod/Tazobactam (Sod 3.375 gm/ Sodium Chloride) 100 mls @ 25 mls/hr IVPB Q12HR [facility] Last Admin: 06/09/20 22:15 Dose: 25 mls/hr Documented by: Sodium Chloride (Saline 0.9%) 1,000 mls @ 20 mls/hr IV .Q24H [facility] Last Admin: 06/09/20 08:00 Dose: 20 mls/hr Documented by: Insulin Aspart (Novolog) 0 unit SQ Q6H [facility]; Protocol Last Admin: 06/09/20 17:42 Dose: Not Given Documented by: Lactulose (Cephulac) 10 gm PO BID PRN PRN Reason: Constipation Last Admin: 06/08/20 20:30 Dose: 10 gm Documented by: Loratadine (Claritin) 10 mg PO Q48H PRN PRN Reason: Allergy Symptoms Magnesium Hydroxide (Milk Of Magnesia) 2,400 mg PO DAILY PRN PRN Reason: Constipation Midodrine (Proamatine) 5 mg PO AC-TID [facility] Last Admin: 06/09/20 16:38 Dose: 5 mg Documented by: Non-Formulary Medication (Linaclotide [Linzess]) 145 mcg PO DAILY@0800 [facility] Last Admin: 06/09/20 09:17 Dose: Not Given Documented by: Ondansetron HCl (Zofran) 4 mg IVP Q6HR PRN PRN Reason: Nausea And Vomiting Last Admin: 06/04/20 05:36 Dose: 4 mg Documented by: Senna (Senokot) 8.6 - 17.2 mg PO HS PRN PRN Reason: Constipation Last Admin: 06/08/20 20:30 Dose: 8.6 mg Documented by: Triamcinolone Acetonide (Kenalog) 1 applic TOPICAL BID [facility] Last Admin: 06/09/20 22:12 Dose: Not Given Documented by: Objective - Vital Signs Vital signs: Vital Signs Temp 96.4 F L 06/12/20 16:00 Pulse 128 H 06/12/20 19:48 Resp 16 06/12/20 19:30 BP 134/73 06/12/20 11:00 Pulse Ox 99 06/12/20 19:38 Intake & Output 06/12/20 06/12/20 06/13/20 06:59 18:59 06:59 Intake Total 953.623 699.106 143 Output Total 890 943 20 Balance 63.623 -243.894 123 Weight 205.05 kg Intake: IV 276 376 23 0.9 pressure bag 36 36 3 Piperacillin-Tazobactam 3 100 .375 gm In Sodium Chloride 0.9% 100 ml @ 25 mls/hr IVPB Q12HR [facility] Rx #:[id number] Sodium Chloride 0.9% 1, 240 240 20 000 ml @ 20 mls/hr IV . Q24H [facility] Rx#:[id number] Intake, IV Titration 677.623 323.106 Amount Amiodarone 300 mg In 244.167 Dextrose 5% in Water 250 ml @ 0.5 MG/MIN 25 mls/hr IV .Q10H [facility] Rx#: [id number] Furosemide 100 mg In 181.333 100 Sodium Chloride 0.9% 90 ml @ 10 MG/HR 10 mls/hr IV .Q10H [facility] Rx#: [id number] Norepinephrine 32 mg In 152.123 223.106 Sodium Chloride 0.9% 218 ml @ 0.05 MCG/KG/MIN 4. 784 mls/hr IV .Q24H [facility] Rx#:[id number] Piperacillin-Tazobactam 3 100 .375 gm In Sodium Chloride 0.9% 100 ml @ 25 mls/hr IVPB Q12HR [facility] Rx #:[id number] Oral 120 Output: Chest Tube Drainage 240 210 Chest Tube Left Posterior 240 210 Chest Urine 650 733 20 Other: Voiding Method Indwelling Catheter Indwelling Catheter ABP, PAP, CO, CI - Last Documented Arterial Blood Pressure 126/66 - Exam GENERAL: Laying in bed, awake and alert EYES: Pupils equal. Conjunctiva normal. HEENT: External appearance of nose and ears normal, oral cavity-endotracheal tube NECK: JVD unable to assess masses not palpable. HEART: First and second heart sounds are normal; no edema. LUNGS: Respiratory rate increased, distant breath [id number] chest tube ABDOMEN: Soft, nontender, liver spleen not palpable, no masses palpable. PSYCH: cooperative MUSCULAR skeletal: [place] - Labs CBC & Chem 7: 06/13/20 04:32 06/13/20 04:32 Labs: Abnormal Lab Results - Last 24 Hours (Table) 06/11/20 06/12/20 06/12/20 Range/Units 23:59 03:53 03:53 WBC 23.2 H (3.8-10.6) k/uL RBC 2.70 L (3.80-5.40) m/uL Hgb 7.3 L (11.4-16.0) gm/dL Hct 26.9 L (34.0-46.0) % MCHC 27.2 L (31.0-37.0) g/dL RDW 18.6 H (11.5-15.5) % Plt Count 131 L D (150-450) k/uL Neutrophils # 19.9 H (1.3-7.7) k/uL Lymphocytes # 0.8 L (1.0-4.8) k/uL Monocytes # 1.8 H (0-1.0) k/uL Chloride 108 H (98-107) mmol/L BUN 96 H (7-17) mg/dL Creatinine 3.56 H (0.52-1.04) mg/dL Glucose 132 H (74-99) mg/dL POC Glucose (mg/dL) 138 H (75-99) mg/dL Urine RBC (0-5) /hpf Urine Bacteria (None) /hpf Hyaline Casts (0-2) /lpf Urine Mucus (None) /hpf 06/12/20 06/12/20 06/12/20 Range/Units 06:06 11:37 12:05 WBC (3.8-10.6) k/uL RBC (3.80-5.40) m/uL Hgb (11.4-16.0) gm/dL Hct (34.0-46.0) % MCHC (31.0-37.0) g/dL RDW (11.5-15.5) % Plt Count (150-450) k/uL Neutrophils # (1.3-7.7) k/uL Lymphocytes # (1.0-4.8) k/uL Monocytes # (0-1.0) k/uL Chloride (98-107) mmol/L BUN (7-17) mg/dL Creatinine (0.52-1.04) mg/dL Glucose (74-99) mg/dL POC Glucose (mg/dL) 135 H 131 H (75-99) mg/dL Urine RBC 11 H (0-5) /hpf Urine Bacteria Occasional H (None) /hpf Hyaline Casts 4 H (0-2) /lpf Urine Mucus Rare H (None) /hpf 06/12/20 Range/Units 17:41 WBC (3.8-10.6) k/uL RBC (3.80-5.40) m/uL Hgb (11.4-16.0) gm/dL Hct (34.0-46.0) % MCHC (31.0-37.0) g/dL RDW (11.5-15.5) % Plt Count (150-450) k/uL Neutrophils # (1.3-7.7) k/uL Lymphocytes # (1.0-4.8) k/uL Monocytes # (0-1.0) k/uL Chloride (98-107) mmol/L BUN (7-17) mg/dL Creatinine (0.52-1.04) mg/dL Glucose (74-99) mg/dL POC Glucose (mg/dL) 122 H (75-99) mg/dL Urine RBC (0-5) /hpf Urine Bacteria (None) /hpf Hyaline Casts (0-2) /lpf Urine Mucus (None) /hpf Assessment and Plan Assessment: -s/p Cardiac arrest with PEA -Acute hypoxic, hypercapnic respiratory failure-requiring ventilator support- slow to respond. extubated now. -Left-sided pleural effusion and consolidation. Status post chest tube placement -New onset A. fib with RVR. -Hypotensive shock requiring pressor support. possibe Septic shock due to Pneumonia -Acute on Chronic congestive heart failure from diastolic dysfunction - Severe pulmonary hypertension and severe TR. - Acute kidney injury secondary to ATN secondary to cardiac arrest/hemodynamic instability. -Chronic kidney disease stage IV secondary to nephrosclerosis with some worsening -Morbid obesity BMI 75.2 -Chronic kidney disease renal bone disease -Anemia of chronic kidney disease -Persistent atrial fibrillation, rate controlled Nonalcoholic fatty liver disease -COPD in an ex-smoker -Primary osteoarthritis -Obstructive sleep apnea -Chronic gout -Chronic hypoxic respiratory failure from COPD -Chronic medical debility and a baseline patient does use a lift to a wheelchair -Thoracentesis with the Thora-vent in place Plan: Patient is currently extubated. Was started on amiodarone drip due to if with RVR new onset. Cardiology was consulted. Continue with aspirin statins and also on IV Lasix 60 mg twice daily. Continue with midodrine. Antibiotics include IV Zosyn. Other medications to continue. Prognosis guarded. 2D echocardiogram showed ejection fraction 40 to 45%. Time with Patient: Greater than 30
--- NOTE | 2020-06-13 23:48 | P.PN ---
Subjective Progress Note Date: 06/13/20 Principal diagnosis: fluid overload This is a pleasant 70-year-old patient was chronic stable medical conditions include CHF EF 55 and 55%, morbid obesity, chronic kidney disease stage IV secondary to nephrosclerosis, renal bone disease, anemia of chronic kidney disease, persistent atrial fibrillation, fatty liver, COPD, primary osteoarthritis, obstructive sleep apnea, chronic gout, on home oxygen, chronic medical debility at her baseline uses a lift a wheelchair. Patient is a resident at [facility]. Patient presents with increasing swelling about a week. Increase in shortness of breath. Appetite is okay. Bowel movements are okay. No fever no chills. Started on IV Lasix. Admitted with CHF exacerbation. Put on IV Lasix. On June 04 -was taken to for thoracentesis and it was a bit difficult by IR. Patient went into PEA cardiac arrest. intubated. Hypotensive. Moved to ICU. Thora-vent was placed. About 850 mL of pus-bloody fluid was obtained. [id number]. On the ventilator. Telemetry shows sinus rhythm. Left chest tube to suction. On IV levo fed and propofol. Tube feeding. Granddaughter at the bedside. 06/08/2020 Patient is currently mechanical ventilator and is being monitored in the ICU. Sedated. low dose levophed. Chest x-ray showed cardiomegaly with central vascular congestion and small to moderate sized bilateral pleural fluid collections with the left sided pleural drainage catheter. Bronchial fluid cultures negative so far. Laboratory data showed WBC 8.2, hemoglobin 7.0 and platelets 87 BUN 84 and creatinine 3.29 Albumin 2.2 06/09/2020 Patient remains on ventilator and is currently sedated. Patient is also on Levophed drip. Chest x-ray showed suspect some improvement in patient's volume status. There may be basilar effusions. Atelectasis, difficult to exclude pneumonia. Patient does have chest tube with minimal drainage. Laboratory data showed WBC 11.8, hemoglobin 7.9 and platelets 87 BUN 88 and creatinine 3.06 Pulmonary and nephrology is on board. 06/10/2020 Patient is currently extubated and is saturating well on oxygen via nasal cannula. Patient is otherwise awake alert and trying to communicate. Chest x-ray this morning showed improving aeration of the left especially in the upper and midlung after left-sided chest tube placement. Focal opacity remains at the left base as well as trace right effusion. 2D echocardiogram showed ejection fraction 40 to 45% there is severe tricuspid regurgitation present. Severe pulmonary hypertension. Left ventricle systolic pressure is 84.96 mmHg. Laboratory data showed WBC 13.2, hemoglobin 7.3 and platelets 83 BUN 100 and creatinine 2.97 06/11/2020 Patient is currently remained ICU. Awake alert but not communicating. Patient is off the ventilator. Currently on oxygen via nasal cannula. Patient is status post chest tube placement. Repeat chest x-ray showed lung seems expanded but left lower lobe remains consolidated. Patient is still on Levophed drip at low-dose. Patient went into A. fib with RVR and was started on amiodarone drip. Cardiology was consulted. Creatinine level is elevated. Nephrology is following. 06/12/2020 Patient is currently in MICU. Awake alert and oriented but communicating very slowly. Able to follow simple commands. Continued on Lasix drip. Patient is also reporting Levophed drip. Amiodarone drip due to atrial fibrillation with RVR. Chest x-ray showed persistent left-sided volume loss with worsening left lung opacity despite chest tube in place. Suggests worsening left-sided pleural effusion and associated left lung atelectasis and/or infiltrate. Patient is being continued on antibiotics in the form of Zosyn. Cardiology, pulmonary and nephrology is on board. Laboratory data showed WBC 23.2, hemoglobin 7.3, platelets 131 BUN 96 and creatinine 3.56 Urinalysis is negative for infection. Patient has been afebrile. 06/13/2020 Patient is currently remains in MICU. More awake and oriented and able to talk simple words. Denied any chest pain. No worsening shortness of breath. patient is currently on oxygen via nasal cannula. Patient was BiPAP in the morning. Chest x-ray showed cardiomegaly and interstitial prominence correlate for CHF with mild pulmonary vascular congestion. Improving aeration in the left with decreased but persistent moderate left pleural effusion with adjacent atelectasis and/or consolidation. Chest tube remains in place. Increasing small right effusion. remains on levophed. Laboratory data showed WBC trending down to 16.7, hemoglobin 7.1 and platelets 89 BUN 98 and creatinine 3.55 Nephrology is considering hemodialysis. Patient will follow pulmonary and cardiology. Complete review of systems could not be obtained from the patient. Active Medications Acetaminophen (Tylenol Tab) 650 mg PO Q4H PRN PRN Reason: Pain or Fever > 100.5 Acetaminophen/Codeine Phosphate (Tylenol #3) 1 each PO TID PRN PRN Reason: Pain Last Admin: 06/11/20 00:17 Dose: 1 each Documented by: Albuterol/Ipratropium (Duoneb 0.5 Mg-3 Mg/3 Ml Soln) 3 ml INHALATION RT-QID [facility] Last Admin: 06/13/20 19:58 Dose: 3 ml Documented by: Allopurinol (Zyloprim) 100 mg PO DAILY@0800 [facility] Last Admin: 06/13/20 09:11 Dose: 100 mg Documented by: Amiodarone HCl (Cordarone) 400 mg PO BID [facility] Last Admin: 06/13/20 20:37 Dose: 400 mg Documented by: Aspirin (Aspirin) 81 mg PO DAILY@1200 [facility] Last Admin: 06/13/20 11:46 Dose: 81 mg Documented by: Atorvastatin Calcium (Lipitor) 40 mg PO HS@2100 [facility] Last Admin: 06/13/20 20:37 Dose: 40 mg Documented by: Bisacodyl (Dulcolax) 10 mg RECTAL DAILY PRN PRN Reason: Constipation Last Admin: 06/03/20 10:28 Dose: 10 mg Documented by: Calcitriol (Rocaltrol) 0.25 mcg PO DAILY@1700 [facility] Last Admin: 06/13/20 17:26 Dose: 0.25 mcg Documented by: Calcium Acetate (Phoslo) 667 mg PO DAILY@0800 [facility] Last Admin: 06/13/20 09:11 Dose: 667 mg Documented by: Cholecalciferol (Vitamin D3 (25 Mcg = 1000 Iu)) 2,000 unit PO DAILY@1700 [facility] Last Admin: 06/13/20 17:26 Dose: 2,000 unit Documented by: Darbepoetin Juan Jose (Aranesp) 60 mcg SQ TH [facility] Last Admin: 06/10/20 11:01 Dose: 60 mcg Documented by: Enoxaparin Sodium (Lovenox) 30 mg SQ DAILY [facility] Last Admin: 06/13/20 09:11 Dose: 30 mg Documented by: Folic Acid (Folic Acid) 1 mg PO DAILY@1200 [facility] Last Admin: 06/13/20 11:46 Dose: 1 mg Documented by: Norepinephrine Bitartrate 32 (mg/ Sodium Chloride) 250 mls @ 4.784 mls/hr IV .Q24H [facility]; Protocol Last Admin: 06/13/20 23:40 Dose: 0.05 mcg/kg/min, 4.784 mls/hr Documented by: Sodium Chloride (Saline 0.9%) 1,000 mls @ 20 mls/hr IV .Q24H [facility] Last Admin: 06/13/20 09:12 Dose: Not Given Documented by: Furosemide 100 mg/ Sodium (Chloride) 100 mls @ 10 mls/hr IV .Q10H [facility] Last Admin: 06/13/20 23:21 Dose: 10 mg/hr, 10 mls/hr Documented by: Piperacillin Sod/Tazobactam (Sod 3.375 gm/ Sodium Chloride) 100 mls @ 25 mls/hr IVPB Q12HR [facility] Last Admin: 06/13/20 20:37 Dose: 25 mls/hr Documented by: Insulin Aspart (Novolog) 0 unit SQ Q6H [facility]; Protocol Last Admin: 06/13/20 19:33 Dose: Not Given Documented by: Lactulose (Cephulac) 10 gm PO BID PRN PRN Reason: Constipation Last Admin: 06/08/20 20:30 Dose: 10 gm Documented by: Loratadine (Claritin) 10 mg PO Q48H PRN PRN Reason: Allergy Symptoms Magnesium Hydroxide (Milk Of Magnesia) 2,400 mg PO DAILY PRN PRN Reason: Constipation Metoprolol Tartrate (Lopressor) 25 mg PO BID [facility] Last Admin: 06/13/20 20:37 Dose: 25 mg Documented by: Midodrine (Proamatine) 10 mg PO AC-TID [facility] Last Admin: 06/13/20 17:26 Dose: 10 mg Documented by: Non-Formulary Medication (Linaclotide [Linzess]) 145 mcg PO DAILY@0800 [facility] Last Admin: 06/13/20 07:50 Dose: Not Given Documented by: Ondansetron HCl (Zofran) 4 mg IVP Q6HR PRN PRN Reason: Nausea And Vomiting Last Admin: 06/11/20 00:25 Dose: 4 mg Documented by: Senna (Senokot) 8.6 - 17.2 mg PO HS PRN PRN Reason: Constipation Last Admin: 06/08/20 20:30 Dose: 8.6 mg Documented by: Triamcinolone Acetonide (Kenalog) 1 applic TOPICAL BID [facility] Last Admin: 06/13/20 20:38 Dose: 1 applic Documented by: Objective - Vital Signs Vital signs: Vital Signs Temp 97.1 F L 06/13/20 12:00 Pulse 102 H 06/13/20 15:33 Resp 0 L 06/13/20 15:00 BP 134/73 06/13/20 08:00 Pulse Ox 99 06/13/20 15:00 Intake & Output 06/12/20 06/13/20 06/13/20 18:59 06:59 18:59 Intake Total 699.106 489.167 657.672 Output Total 943 605 245 Balance -243.894 -115.833 412.672 Weight 208.22 kg Intake: IV 376 276 207 0.9 pressure bag 36 36 27 Piperacillin-Tazobactam 3 100 .375 gm In Sodium Chloride 0.9% 100 ml @ 25 mls/hr IVPB Q12HR [facility] Rx #:[id number] Sodium Chloride 0.9% 1, 240 240 180 000 ml @ 20 mls/hr IV . Q24H [facility] Rx#:[id number] Intake, IV Titration 323.106 93.167 330.672 Amount Furosemide 100 mg In 100 93.167 106.417 Sodium Chloride 0.9% 90 ml @ 10 MG/HR 10 mls/hr IV .Q10H [facility] Rx#: [id number] Norepinephrine 32 mg In 223.106 124.255 Sodium Chloride 0.9% 218 ml @ 0.05 MCG/KG/MIN 4. 784 mls/hr IV .Q24H [facility] Rx#:[id number] Piperacillin-Tazobactam 3 100 .375 gm In Sodium Chloride 0.9% 100 ml @ 25 mls/hr IVPB Q12HR [facility] Rx #:[id number] Oral 120 120 Output: Chest Tube Drainage 210 155 Chest Tube Left Posterior 210 155 Chest Urine 733 450 245 Other: Voiding Method Indwelling Catheter Indwelling Catheter Indwelling Catheter ABP, PAP, CO, CI - Last Documented Arterial Blood Pressure 99/51 - Exam GENERAL: Laying in bed, awake and alert EYES: Pupils equal. Conjunctiva normal. HEENT: External appearance of nose and ears normal, oral cavity-endotracheal tube NECK: JVD unable to assess masses not palpable. HEART: First and second heart sounds are normal; no edema. LUNGS: Bibasilar diminished air entry, distant breath [id number] chest tube ABDOMEN: Soft, nontender, liver spleen not palpable, no masses palpable. PSYCH: cooperative MUSCULAR skeletal: [place] - Labs CBC & Chem 7: 06/13/20 04:32 06/13/20 04:32 Labs: Abnormal Lab Results - Last 24 Hours (Table) 06/12/20 06/12/20 06/13/20 Range/Units 17:41 23:52 04:32 WBC 16.7 H (3.8-10.6) k/uL RBC 2.60 L (3.80-5.40) m/uL Hgb 7.1 L (11.4-16.0) gm/dL Hct 25.9 L (34.0-46.0) % MCHC 27.2 L (31.0-37.0) g/dL RDW 18.9 H (11.5-15.5) % Plt Count 89 L (150-450) k/uL Neutrophils # 14.4 H (1.3-7.7) k/uL Lymphocytes # 0.7 L (1.0-4.8) k/uL Chloride (98-107) mmol/L BUN (7-17) mg/dL Creatinine (0.52-1.04) mg/dL Glucose (74-99) mg/dL POC Glucose (mg/dL) 122 H 109 H (75-99) mg/dL 06/13/20 06/13/20 06/13/20 Range/Units 04:32 05:59 11:49 WBC (3.8-10.6) k/uL RBC (3.80-5.40) m/uL Hgb (11.4-16.0) gm/dL Hct (34.0-46.0) % MCHC (31.0-37.0) g/dL RDW (11.5-15.5) % Plt Count (150-450) k/uL Neutrophils # (1.3-7.7) k/uL Lymphocytes # (1.0-4.8) k/uL Chloride 108 H (98-107) mmol/L BUN 98 H (7-17) mg/dL Creatinine 3.55 H (0.52-1.04) mg/dL Glucose 107 H (74-99) mg/dL POC Glucose (mg/dL) 110 H 138 H (75-99) mg/dL Assessment and Plan Assessment: -s/p Cardiac arrest with PEA -Acute hypoxic, hypercapnic respiratory failure-requiring ventilator support- slow to respond. extubated now. -Left-sided pleural effusion and consolidation. Status post chest tube placement -New onset A. fib with RVR. -Hypotensive shock requiring pressor support. possibe Septic shock due to Pneumonia -Acute on Chronic congestive heart failure from diastolic dysfunction - Severe pulmonary hypertension and severe TR. - Acute kidney injury secondary to ATN secondary to cardiac arrest/hemodynamic instability. -Chronic kidney disease stage IV secondary to nephrosclerosis with some worsening -Morbid obesity BMI 75.2 -Chronic kidney disease renal bone disease -Anemia of chronic kidney disease -Persistent atrial fibrillation, rate controlled Nonalcoholic fatty liver disease -COPD in an ex-smoker -Primary osteoarthritis -Obstructive sleep apnea -Chronic gout -Chronic hypoxic respiratory failure from COPD -Chronic medical debility and a baseline patient does use a lift to a wheelchair -Thoracentesis with the Thora-vent in place Plan: Patient is currently extubated. Was started on amiodarone drip due to if with RVR new onset. Cardiology was consulted. Continue with aspirin statins and also on IV Lasix 60 mg twice daily. Continue with midodrine. Antibiotics include IV Zosyn. Other medications to continue. Prognosis guarded. 2D echocardiogram showed ejection fraction 40 to 45%. Time with Patient: Greater than 30
[2020-06-14 00:06] LABS: Glucose,Whole Blood 113 mg/dL (75-99)
[2020-06-14] MEDS: INSULIN ASPART (NovoLOG) 100 UNIT/ML VIAL SQ SCH ×4 (00:20→18:19)
[2020-06-14 05:43] LABS: Anisocytosis Slight; Basophils # (A) 0.1 k/uL (0-0.2); Basophils % (A) 0 %; Eosinophils # (A) 0.3 k/uL (0-0.7); Eosinophils % (A) 2 %; HGB 7.2 gm/dL (11.4-16.0); Hypochromasia Marked; Lymphocytes # (A) 0.8 k/uL (1.0-4.8); Lymphocytes % (A) 5 %; MCH 27.8 pg (25.0-35.0); MCHC 27.8 g/dL (31.0-37.0); MCV 100.1 fL (80.0-100.0); Macrocytosis Moderate; Mean Platelet Volume 11.1; Monocytes # (A) 0.8 k/uL (0-1.0); Monocytes % (A) 6 %; Neutrophils # (A) 13.1 k/uL (1.3-7.7); Neutrophils % (A) 85 %; Poikilocytosis Slight; RBC 2.59 m/uL (3.80-5.40); RDW 18.7 % (11.5-15.5); WBC 15.3 k/uL (3.8-10.6)
[2020-06-14 05:48] LABS: Platelet Count 73 k/uL (150-450)
[2020-06-14 05:54] LABS: Albumin 2.8 g/dL (3.5-5.0); Calcium 8.8 mg/dL (8.4-10.2); Potassium 4.6 mmol/L (3.5-5.1); Total Bilirubin 1.2 mg/dL (0.2-1.3); Total Protein 5.9 g/dL (6.3-8.2)
[2020-06-14 06:02] LABS: Glucose,Whole Blood 108 mg/dL (75-99)
[2020-06-14] MEDS: IPRATROPIUM-ALBUTEROL 3 ML NEB INHALATION SCH ×4 (07:18→18:58)
--- NOTE | 2020-06-14 08:11 | XR ---
EXAMINATION TYPE: XR chest 1V portable DATE OF EXAM: 06/14/2020 HISTORY: Shortness of breath. COMPARISON: June 13, 2020 TECHNIQUE: Single view of the chest is submitted. FINDINGS: Left-sided chest tube is unchanged in position. No evidence for sizable pneumothorax. Pulmonary venous congestion and perihilar and basilar infiltrates and small effusions remain essentia lly stable. The heart is stable. Hilar and mediastinal structures are within normal limits. Degenerative changes are seen of the dorsal spine. IMPRESSION: 1. Stable chest.
[2020-06-14] MEDS: AMIODARONE 200 MG TAB PO SCH ×2 (08:16→20:56)
[2020-06-14] MEDS: MIDODRINE 5 MG TAB PO SCH ×3 (08:16→18:28)
[2020-06-14] MEDS: allopurinoL 100 MG TAB PO SCH (08:16)
[2020-06-14] MEDS: PIPERACILLIN-TAZOBACTAM 3.375 GM in SODIUM CHLORIDE 0.9% 100 ML IVPB SCH ×2 (08:16→20:56)
[2020-06-14] MEDS: ENOXAPARIN 30 MG/0.3 ML SYRINGE SQ SCH (08:16)
[2020-06-14] MEDS: CALCIUM ACETATE 667 MG TAB PO SCH (08:17)
[2020-06-14] MEDS: TRIAMCINOLONE 0.1% CREAM 80 GM TUBE TOPICAL SCH ×2 (08:17→20:57)
[2020-06-14] MEDS: NON FORMULARY DRUG (Linaclotide [Linzess] 145 MCG) PO SCH (08:17)
[2020-06-14] MEDS: SODIUM CHLORIDE 0.9% 1,000 ML IV SCH (08:17)
[2020-06-14] MEDS: FUROSEMIDE 100 MG in SODIUM CHLORIDE 0.9% 90 ML IV SCH ×3 (08:18→20:57)
[2020-06-14] MEDS: METOPROLOL TARTRATE 25 MG TAB PO SCH ×2 (08:18→22:50)
[2020-06-14] MEDS: LEVOTHYROXINE IVP 100 MCG/5 ML VIAL IV SCH (09:41)
--- NOTE | 2020-06-14 09:41 | P.PN ---
Subjective Progress Note Date: 06/14/20 Principal diagnosis: Left pleural effusion, acute hypercapnic respiratory failure, acute on chronic diastolic heart failure. Previous medical history of chronic atrial fibrillatio n on no anticoagulation due to history of bleeding, chronic hypoxic respiratory failure on home oxygen, morbid obesity, hypertension, stage IV chronic kidney disease, chronic anemia, obstructive sleep apnea with home CPAP use, previous tobacco dependence, medical debility, osteoarthritis. POD #4 left chest tube placement The patient is currently laying in bed in the intensive care unit in no acute distress. Denies pain or significant shortness of breath. She is currently on 5 L nasal cannula with oxygen saturation 98%. She remains on no inotropes or pressors, she is currently on IV lasix @ 10 mg/hr. Left pleural chest tube remains, no air leak present. Objective - Vital Signs Vital signs: Vital Signs Temp 96.1 F L 06/14/20 08:00 Pulse 97 06/14/20 08:00 Resp 18 06/14/20 08:00 BP 134/73 06/14/20 07:00 Pulse Ox 98 06/14/20 08:00 Intake & Output 06/13/20 06/14/20 06/14/20 18:59 06:59 18:59 Intake Total 946.672 559.544 120.058 Output Total 295 485 60 Balance 651.672 74.544 60.058 Weight 211.05 kg Intake: IV 276 276 23 0.9 pressure bag 36 36 3 Sodium Chloride 0.9% 1, 240 240 20 000 ml @ 20 mls/hr IV . Q24H [facility] Rx#:[id number] Intake, IV Titration 330.672 283.544 97.058 Amount Furosemide 100 mg In 106.417 77.583 89.5 Sodium Chloride 0.9% 90 ml @ 10 MG/HR 10 mls/hr IV .Q10H [facility] Rx#: [id number] Norepinephrine 32 mg In 124.255 105.961 7.558 Sodium Chloride 0.9% 218 ml @ 0.05 MCG/KG/MIN 4. 784 mls/hr IV .Q24H [facility] Rx#:[id number] Piperacillin-Tazobactam 3 100 100 .375 gm In Sodium Chloride 0.9% 100 ml @ 25 mls/hr IVPB Q12HR [facility] Rx #:[id number] Oral 120 Tube Feeding 220 Output: Chest Tube Drainage 150 40 Chest Tube Left Posterior 150 40 Chest Urine 295 335 20 Other: Voiding Method Indwelling Catheter Indwelling Catheter ABP, PAP, CO, CI - Last Documented Arterial Blood Pressure 102/49 - Constitutional General appearance: Present: cooperative, morbidly obese, no acute distress - Respiratory Details: Lungs sounds diminished on the left. Respirations even, nonlabored. Currently on 5 L nasal cannula with oxygen saturation 98%. Left pleural chest tube present, 115 mL cloudy serosanguineous drainage overnight, 250 mL in the last 24 hours, no air leak present. - Cardiovascular Details: S1/S2 present, irregular rate and rhythm, atrial fibrillation on telemetry. Palpable pulses bilaterally, generalized edema present. - Gastrointestinal Gastrointestinal Comment(s): Abdomen soft, nontender, nondistended, obese. Active bowel sounds present 4 quadrants. - Genitourinary Genitourinary Comment(s): [place] present draining clear, yellow urine - Integumentary Integumentary Comment(s): Skin is warm and dry. She does have several areas of tape tapia and maceration from tape - Neurologic Neurologic: Present: CNII-XII intact - Musculoskeletal Musculoskeletal: Present: generalized weakness, strength equal bilaterally - Psychiatric Psychiatric: Present: A&O x's 3, appropriate affect - Allied health notes Allied health notes reviewed: nursing - Labs CBC & Chem 7: 06/14/20 05:15 06/14/20 05:15 Labs: Abnormal Lab Results - Last 24 Hours (Table) 06/13/20 06/13/20 06/14/20 Range/Units 11:49 17:30 00:04 WBC (3.8-10.6) k/uL RBC (3.80-5.40) m/uL Hgb (11.4-16.0) gm/dL Hct (34.0-46.0) % MCV (80.0-100.0) fL MCHC (31.0-37.0) g/dL RDW (11.5-15.5) % Plt Count (150-450) k/uL Neutrophils # (1.3-7.7) k/uL Lymphocytes # (1.0-4.8) k/uL BUN (7-17) mg/dL Creatinine (0.52-1.04) mg/dL Glucose (74-99) mg/dL POC Glucose (mg/dL) 138 H 122 H 113 H (75-99) mg/dL AST (14-36) U/L ALT (4-34) U/L Total Protein (6.3-8.2) g/dL Albumin (3.5-5.0) g/dL 06/14/20 06/14/20 06/14/20 Range/Units 05:15 05:15 06:01 WBC 15.3 H (3.8-10.6) k/uL RBC 2.59 L (3.80-5.40) m/uL Hgb 7.2 L (11.4-16.0) gm/dL Hct 26.0 L (34.0-46.0) % MCV 100.1 H (80.0-100.0) fL MCHC 27.8 L (31.0-37.0) g/dL RDW 18.7 H (11.5-15.5) % Plt Count 73 L (150-450) k/uL Neutrophils # 13.1 H (1.3-7.7) k/uL Lymphocytes # 0.8 L (1.0-4.8) k/uL BUN 102 H* (7-17) mg/dL Creatinine 3.87 H (0.52-1.04) mg/dL Glucose 106 H (74-99) mg/dL POC Glucose (mg/dL) 108 H (75-99) mg/dL AST 68 H (14-36) U/L ALT 51 H (4-34) U/L Total Protein 5.9 L (6.3-8.2) g/dL Albumin 2.8 L (3.5-5.0) g/dL - Imaging and Cardiology Chest x-ray: report reviewed, image reviewed Assessment and Plan Assessment: 1. Left pleural effusion, S/P aborted thoracentesis, placement of Thoravent, cytology negative, fluid transudative in nature, status post left thoracostomy tube placement 2. Acute hypercapneic respiratory failure requiring mechanical ventilation, now on nasal cannula 3. Acute on chronic diastolic heart failure 4. Chronic atrial fibrillation on no anticoagulation due to history of bleeding 5. Chronic hypoxic respiratory failure, on home oxygen 6. Morbid obesity 7. History of hypertension 8. Stage IV chronic kidney disease 9. Chronic anemia 10. Obstructive sleep apnea with home Cpap use 11. Previous history of tobacco dependence 12. Medical debility, [facility] 13. Osteoarthritis Plan: 1. Continue left pleural chest tube to wall suction. We will continue to monitor drainage 2. Wean O2 as tolerated. Encourage incentive spirometry use. Bronchodilators, steroids, antibiotics per pulmonology 3. Increase activity as tolerated 4. Will monitor daily x-rays 5. Management of other comorbidities per primary care service, other consultants 6. More recommendations to follow Time with Patient: Greater than 30
[2020-06-14 11:49] LABS: Glucose,Whole Blood 124 mg/dL (75-99)
--- NOTE | 2020-06-14 12:08 | P.PN ---
Subjective Progress Note Date: 06/14/20 Principal diagnosis: Atrial fibrillation HISTORY OF PRESENTING ILLNESS This is a pleasant 70-year-old female past medical history significant for morbid obesity, chronic kidney disease, hypertension, anemia, previous tobacco dependence, stability residing in an [facility], diastolic heart failure with ejection fraction 40-45% and persistent atrial fibrillation who had presented for in creasing swelling and shortness breath or the prior week and 06/03/2020. She had initial ultrasound on 06/10/2020 which showed ejection fraction 4045% with severe pulmonary hypertension at 89 with severe right ventricular and right atrial enlargement and severe tricuspid regurgitation. Patient initially had left lung white out and was initially intubated. She had chest tube placed for left lung effusion with some improvement. 06/14/2020 DIAGNOSTICS Laboratory reviewed, BUN is 102, creatinine is 3.87, AST and ALT are mildly elevated at 68 and 51, hemoglobin is 7.2, white blood cell count 15.3. Current cardiac medications include amiodarone 400 mg twice a day, aspirin 81 mg daily, Lipitor 40 mg daily, Lasix drip, site Cortef 50 mg IV every 6 hours, Lopressor 25 mg twice a day, Midrin 10 mg 3 times a day. REVIEW OF SYSTEMS At the time of my exam: Patient extremely lethargic and not answering questions. She is able to say her name however will not answer my direct questions. PHYSICAL EXAMINATION Blood pressure 95/54 heart rate 79 afebrile and maintaining oxygen saturation on nasal cannula CONSTITUTIONAL: No apparent distress, ill-appearing, lethargic and able to say her name however not answering questions, morbidly obese HEENT: Head is normocephalic. Pupils are equal, round. Sclerae anicteric. Mucous membranes of the mouth are moist. No carotid bruit. CHEST EXAMINATION: Left worse than right rhonchi and decreased breath sounds at the left base. HEART EXAMINATION: Irregularly irregular rate and rhythm. Normal S1-S2, positive RV heave, positive 3/6 systolic ejection murmur ABDOMEN: Soft, nontender. Positive bowel sounds. EXTREMITIES: 2+ peripheral pulses, no lower extremity edema and no calf tenderness. NEUROLOGIC EXAMINATION: Patient is somnolent, lethargic ASSESSMENT 1. Persistent atrial fibrillation, not anticoagulated because of recurrent episodes of bleeding 2. Morbid obesity 3. Acute on chronic diastolic heart failure with ejection fraction 40-45% from echo 06/10/2020 4. Chronic kidney disease, worsening with likely uremic encephalopathy 5. Anemia 6. History of sleep apnea 7. Severe pulmonary hypertension with RVSP of 85 on echo from 06/10/2020 with severe right ventricle and right atrial enlargement and severe tricuspid regurgitation PLAN Patient's BUN and creatinine continue to to increase and patient may need dialysis soon. Has not been having much urine output with the Lasix drip. Patient has been on amiodarone however patient may be more chronic atrial fibrillation. We will continue this for now. She does have severe pulmonary hypertension with severe right atrial and right ventricular enlargement along with severe tricuspid regurgitation. Attempt to rate control with metoprolol 25 mg twice a day. No anticoagulation given anemia. Overall patient has multi- organ failure and prognosis is guarded. Objective - Vital Signs Vital signs: Vital Signs Temp 96.1 F L 06/14/20 08:00 Pulse 90 06/14/20 11:25 Resp 18 06/14/20 11:00 BP 134/73 06/14/20 07:00 Pulse Ox 100 06/14/20 11:00 Intake & Output 06/13/20 06/14/20 06/14/20 18:59 06:59 18:59 Intake Total 946.672 559.544 429.058 Output Total 295 485 100 Balance 651.672 74.544 329.058 Weight 211.05 kg 211.05 kg Intake: IV 276 276 92 0.9 pressure bag 36 36 12 Sodium Chloride 0.9% 1, 240 240 80 000 ml @ 20 mls/hr IV . Q24H [facility] Rx#:[id number] Intake, IV Titration 330.672 283.544 97.058 Amount Furosemide 100 mg In 106.417 77.583 89.5 Sodium Chloride 0.9% 90 ml @ 10 MG/HR 10 mls/hr IV .Q10H [facility] Rx#: [id number] Norepinephrine 32 mg In 124.255 105.961 7.558 Sodium Chloride 0.9% 218 ml @ 0.05 MCG/KG/MIN 4. 784 mls/hr IV .Q24H [facility] Rx#:[id number] Piperacillin-Tazobactam 3 100 100 .375 gm In Sodium Chloride 0.9% 100 ml @ 25 mls/hr IVPB Q12HR [facility] Rx #:[id number] Oral 120 240 Tube Feeding 220 Output: Chest Tube Drainage 150 40 Chest Tube Left Posterior 150 40 Chest Urine 295 335 60 Other: Voiding Method Indwelling Catheter Indwelling Catheter Indwelling Catheter ABP, PAP, CO, CI - Last Documented Arterial Blood Pressure 95/49 - Labs CBC & Chem 7: 06/14/20 05:15 06/14/20 05:15 Labs: Abnormal Lab Results - Last 24 Hours (Table) 06/13/20 06/13/20 06/14/20 Range/Units 11:49 17:30 00:04 WBC (3.8-10.6) k/uL RBC (3.80-5.40) m/uL Hgb (11.4-16.0) gm/dL Hct (34.0-46.0) % MCV (80.0-100.0) fL MCHC (31.0-37.0) g/dL RDW (11.5-15.5) % Plt Count (150-450) k/uL Neutrophils # (1.3-7.7) k/uL Lymphocytes # (1.0-4.8) k/uL BUN (7-17) mg/dL Creatinine (0.52-1.04) mg/dL Glucose (74-99) mg/dL POC Glucose (mg/dL) 138 H 122 H 113 H (75-99) mg/dL AST (14-36) U/L ALT (4-34) U/L Total Protein (6.3-8.2) g/dL Albumin (3.5-5.0) g/dL 06/14/20 06/14/20 06/14/20 Range/Units 05:15 05:15 06:01 WBC 15.3 H (3.8-10.6) k/uL RBC 2.59 L (3.80-5.40) m/uL Hgb 7.2 L (11.4-16.0) gm/dL Hct 26.0 L (34.0-46.0) % MCV 100.1 H (80.0-100.0) fL MCHC 27.8 L (31.0-37.0) g/dL RDW 18.7 H (11.5-15.5) % Plt Count 73 L (150-450) k/uL Neutrophils # 13.1 H (1.3-7.7) k/uL Lymphocytes # 0.8 L (1.0-4.8) k/uL BUN 102 H* (7-17) mg/dL Creatinine 3.87 H (0.52-1.04) mg/dL Glucose 106 H (74-99) mg/dL POC Glucose (mg/dL) 108 H (75-99) mg/dL AST 68 H (14-36) U/L ALT 51 H (4-34) U/L Total Protein 5.9 L (6.3-8.2) g/dL Albumin 2.8 L (3.5-5.0) g/dL 06/14/20 Range/Units 11:47 WBC (3.8-10.6) k/uL RBC (3.80-5.40) m/uL Hgb (11.4-16.0) gm/dL Hct (34.0-46.0) % MCV (80.0-100.0) fL MCHC (31.0-37.0) g/dL RDW (11.5-15.5) % Plt Count (150-450) k/uL Neutrophils # (1.3-7.7) k/uL Lymphocytes # (1.0-4.8) k/uL BUN (7-17) mg/dL Creatinine (0.52-1.04) mg/dL Glucose (74-99) mg/dL POC Glucose (mg/dL) 124 H (75-99) mg/dL AST (14-36) U/L ALT (4-34) U/L Total Protein (6.3-8.2) g/dL Albumin (3.5-5.0) g/dL
--- NOTE | 2020-06-14 12:11 | P.PN ---
Subjective Progress Note Date: 06/14/20 Principal diagnosis: Acute left lung opacification 70-year-old female patient, skilled nursing resident who was referred back to the emergency department because of worsening shortness of breath and hypoxemia. The patient had significant amount of weight gain in the order of 11 pounds over this past week. She also reported worsening lower extremity edema. She was unable to ambulate. She is currently bedbound. She is morbidly obese with a BMI of 34.2. No fever no chills. No aspiration. She has a mild cough. No chest pain. The chest x-rays showing complete opacification of the left lung without any significant shift of the trachea or volume loss. The left mainstem bronchus is currently off. White cell count 9.3 with hemoglobin of 7.9. Coagulation profile is within normal. 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 Serum bicarb is 29 with a sodium of 138. The liver functions is on essentially within normal limits. Albumin is at 3.3 with a total protein of 6.9. ProBNP level was 11,300. Currently, the patient is on 2 L of oxygen by nasal cannula. Pulse ox and order of 97%. Long with stage IV kidney disease secondary to do hypertensive nephrosclerosis. She also has chronic anemia, chronic proximal atrial fibrillation, COPD, osteoarthritis, obstructive sleep apnea, gout and she Zyvox and dependent and she has home O2. She is medically debilitated and she is a left and a walker. She is a resident of a [facility]. During her most recent hospitalization, the anemia was further worked up by EGD EGD showed mild gastritis. There was mild duodenitis. There was a small hiatal hernia. The patient is seen today 06/03/2020 in follow-up on the selective care unit. She is awake and alert in no acute distress. Currently resting flat in bed. Maintaining O2 saturation in the mid 90s on 2 L/m per nasal cannula. She's been afebrile. Was unable to tolerate a computed tomography scan of the chest yesterday. Sodium 138. Potassium 6.0. Creatinine 3.54. She remains on Lasix 80 mg IV every 12 hours. On 06/04/2020 patient seen in follow-up on selective care unit. She is resting comfortably in bed. She appears to be in no acute distress, she is on 2 L of oxygen her pulse ox is 92-100%, hemodynamically she stable, no couplets or chest pain, she's been afebrile, yesterday she had unsuccessful attempt at ultrasound- guided left thoracentesis, and patient was experiencing a lot of discomfort when the staff was trying to position her for the thoracentesis, and the procedure was aborted. Electrolytes are within normal limits, BUN was 96, creatinine was 3.74. She remains on diuretics 40 mg every 12 hours, her lower extremity edema slightly improved. Lung sounds reveal absent breath sounds on the left, and clear diminished breath sounds on the right, no cough or congestion. No altered mentation. Follow-up chest x-ray today shows stable findings complete opacified left hemithorax without mediastinal shift. On 06/14/2020 patient seen in follow-up in the intensive care unit, she is awake and alert, she is oriented 3, no evidence of distress, she is currently on 5 L of oxygen and the pulse ox of 98%, she has been afebrile, respirations are nonlabored, lung sounds are clear, diminished at the bases, left-sided chest tube remains in place to wall suction, and there has been 150 mL of serosanguineous output in the last 24 hours. No evidence of air leak. Today's chest x-ray shows no evidence of a sizable pneumothorax. Pleural fluid cultures have shown no growth, blood culture was negative. IV fluids include Lasix at 10 mg per hour, Levaquin fed is at 22 mics per minute, and 0.9 normal saline at a rate of 20 ML per hour, patient has been in positive fluid balance over the last 24 hours of 726 ML. Still has quite significant edema involving upper and lower extremities. Her cortisol level was 20, and we will add IV hydrocortisone 50 mg every 6 hours. TSH was 5.72, and patient will be started on thyroid hormone replacement. Patient remains on empiric antibiotics in the form of Zosyn. She remains in atrial fibrillation/atrial flutter, with the controlled rates. Today's labs have been reviewed, renal profile slightly bumped up, with BUN of 102, and creatinine of 3.87,, Celexa lites within normal limits, white blood cell count is trending down, down to 15.3, hemoglobin is 7.2 Objective - Vital Signs Vital signs: Vital Signs Temp 96.1 F L 06/14/20 08:00 Pulse 90 06/14/20 11:25 Resp 18 06/14/20 11:00 BP 134/73 06/14/20 07:00 Pulse Ox 100 06/14/20 11:00 Intake & Output 06/13/20 06/14/20 06/14/20 18:59 06:59 18:59 Intake Total 946.672 559.544 429.058 Output Total 295 485 100 Balance 651.672 74.544 329.058 Weight 211.05 kg 211.05 kg Intake: IV 276 276 92 0.9 pressure bag 36 36 12 Sodium Chloride 0.9% 1, 240 240 80 000 ml @ 20 mls/hr IV . Q24H [facility] Rx#:[id number] Intake, IV Titration 330.672 283.544 97.058 Amount Furosemide 100 mg In 106.417 77.583 89.5 Sodium Chloride 0.9% 90 ml @ 10 MG/HR 10 mls/hr IV .Q10H [facility] Rx#: [id number] Norepinephrine 32 mg In 124.255 105.961 7.558 Sodium Chloride 0.9% 218 ml @ 0.05 MCG/KG/MIN 4. 784 mls/hr IV .Q24H [facility] Rx#:[id number] Piperacillin-Tazobactam 3 100 100 .375 gm In Sodium Chloride 0.9% 100 ml @ 25 mls/hr IVPB Q12HR [facility] Rx #:[id number] Oral 120 240 Tube Feeding 220 Output: Chest Tube Drainage 150 40 Chest Tube Left Posterior 150 40 Chest Urine 295 335 60 Other: Voiding Method Indwelling Catheter Indwelling Catheter Indwelling Catheter ABP, PAP, CO, CI - Last Documented Arterial Blood Pressure 95/49 - Exam GENERAL EXAM: Alert, very pleasant, supra-morbidly obese 70-year-old - [place] female on 5 L of oxygen and the pulse ox of 98% comfortable in no apparent distress. Wearing BiPAP support intermittently, and bedtime HEAD: Normocephalic/atraumatic. EYES: Normal reaction of pupils, equal size. Conjunctiva pink, sclera white. NOSE: Clear with pink turbinates. THROAT: No erythema or exudates. NECK: No masses, no JVD, no thyroid enlargement, no adenopathy. CHEST: No chest wall deformity. Symmetrical expansion. Left chest tube is in place, to wall suction, with no evidence of air leak, with thin serosanguineous output in the Pleur-evac LUNGS: Equal air entry with no crackles, wheeze, rhonchi or dullness. CVS: Regular rate and rhythm, normal S1 and S2, no gallops, no murmurs, no rubs ABDOMEN: Soft, nontender. No hepatosplenomegaly, normal bowel sounds, no guarding or rigidity. EXTREMITIES: No clubbing, 2+ lower extremity edema, involving thighs, lower legs, pedal edema, ankle edema, and some mild edema involving upper extremities, no cyanosis, 2+ pulses and upper and lower extremities. MUSCULOSKELETAL: Muscle strength and tone normal. SPINE: No scoliosis or deformity SKIN: No rashes CENTRAL NERVOUS SYSTEM: Alert and oriented -3. No focal deficits, tone is normal in all 4 extremities. PSYCHIATRIC: Alert and oriented -3. Appropriate affect. Intact judgment and insight. - Labs CBC & Chem 7: 06/14/20 05:15 06/14/20 05:15 Labs: Abnormal Lab Results - Last 24 Hours (Table) 06/13/20 06/14/20 06/14/20 Range/Units 17:30 00:04 05:15 WBC 15.3 H (3.8-10.6) k/uL RBC 2.59 L (3.80-5.40) m/uL Hgb 7.2 L (11.4-16.0) gm/dL Hct 26.0 L (34.0-46.0) % MCV 100.1 H (80.0-100.0) fL MCHC 27.8 L (31.0-37.0) g/dL RDW 18.7 H (11.5-15.5) % Plt Count 73 L (150-450) k/uL Neutrophils # 13.1 H (1.3-7.7) k/uL Lymphocytes # 0.8 L (1.0-4.8) k/uL BUN (7-17) mg/dL Creatinine (0.52-1.04) mg/dL Glucose (74-99) mg/dL POC Glucose (mg/dL) 122 H 113 H (75-99) mg/dL AST (14-36) U/L ALT (4-34) U/L Total Protein (6.3-8.2) g/dL Albumin (3.5-5.0) g/dL 06/14/20 06/14/20 06/14/20 Range/Units 05:15 06:01 11:47 WBC (3.8-10.6) k/uL RBC (3.80-5.40) m/uL Hgb (11.4-16.0) gm/dL Hct (34.0-46.0) % MCV (80.0-100.0) fL MCHC (31.0-37.0) g/dL RDW (11.5-15.5) % Plt Count (150-450) k/uL Neutrophils # (1.3-7.7) k/uL Lymphocytes # (1.0-4.8) k/uL BUN 102 H* (7-17) mg/dL Creatinine 3.87 H (0.52-1.04) mg/dL Glucose 106 H (74-99) mg/dL POC Glucose (mg/dL) 108 H 124 H (75-99) mg/dL AST 68 H (14-36) U/L ALT 51 H (4-34) U/L Total Protein 5.9 L (6.3-8.2) g/dL Albumin 2.8 L (3.5-5.0) g/dL Assessment and Plan Plan: Assessment: #1. Acute on chronic hypoxic respiratory failure, presented complete opacification of the left lung and large left-sided pleural effusion, transudati ve in nature, the fluid was suspicious for chylothorax at one time, with significantly elevated triglycerides #2. Acute left lower lobe pneumonia and possible septic shock on presentation, pleural fluid cultures have shown no growth, remains on empiric antibiotic coverage in the form of Zosyn #3. Morbid obesity with BMI of 74.2 #4. Chronic hypoxic respiratory failure, normally on 2 L per nasal cannula #5. Chronic kidney disease stage IV #6. Chronic gastritis #7. Chronic diastolic congestive heart failure #8. Anemia of chronic kidney disease #9. Nonalcoholic fatty liver disease #10. COPD, ex-smoker, presently inactive #11. Medical debility, patient is bedbound #12. Chronic gout #13. Obstructive sleep apnea syndrome #14. Status post left-sided chest tube thoracostomy on 06/10/2020 for recurrence of left lung opacification #15. Chronic atrial fibrillation/flutter, not any chronic anticoagulation related to chronic anemia and recurrent episodes of bleeding #16. Mild to moderately impaired left ventricle systolic function with severe pulmonary hypertension #17. Secondary adrenal insufficiency related to pneumonia and sepsis #18. Hypothyroidism Plan: We will and hydrocortisone 50 mg every 8 hours IV push, wean Levophed, we will add Synthroid 25 mg IV push daily, Lasix infusion per nephrology. Patient still remains quite edematous, however she is not diuresing him very much. Her oral intake is poor, her renal profile is slightly worsened. A chest x-ray shows no evidence of pneumothorax, left-sided chest tube remains in place draining thin servicing this output, all cultures have been negative, patient remains on empiric antibiotic coverage, and she has been afebrile. We'll continue to manage the patient in the intensive care unit, chest tube management per CT surgery. Overall prognosis is guarded I performed a history & physical examination of the patient and discussed their management with my nurse practitioner, Perri Forrest. I reviewed the nurse practitioner's note and agree with the documented findings and plan of care. Malathi ng sounds are positive for diminished breath sounds at the bases. The findings and the impression was discussed with the patient. I attest to the documentation by the nurse practitioner. Time with Patient: Greater than 30
[2020-06-14] MEDS: ASPIRIN 81 MG PO SCH (12:30)
[2020-06-14] MEDS: FOLIC ACID 1 MG TAB PO SCH (12:31)
[2020-06-14] MEDS: HYDROCORTISONE SUCCINATE 100 MG/2 ML VIAL IV SCH ×2 (12:45→18:28)
--- NOTE | 2020-06-14 12:53 | P.GSCN ---
History of Present Illness History of present illness: 70-year-old female I was consulted for placement of the dialysis catheter. Patient has history of morbid obesity, chronic kidney disease, hypertension, ejection fraction of 45-50 with pulmonary hypertension, patient to has increasing BUN/creatinine . And also has no urine output Patient was seen in the interspace care unit she patient lying comfortably in bed Y [facility] stable afebrile Chest patient has a left chest tube for pleural effusion patient on 5 L of oxygen plan is placement of the dialysis catheter risk and complication discussed Past Medical History Past Medical History: Atrial Fibrillation, Asthma, Heart Failure, Hyperlipidemia, Hypertension, Liver Disease, Osteoarthritis (OA), Pneumonia, Renal Disease, Sleep Apnea/CPAP/BIPAP Additional Past Medical History / Comment(s): BRUNILDA with CPAP, O2 at 2L/NC during day, morbid obesity, intermittent vaginal bleed, fatty liver, CKD stage IV/mineral bone disease, UTIs, murmur, gout bilateral legs/feet, arthritis multiple joints, sinus problems, past left lower leg cellulitis and wound, gastritis,"in my 20's i had ulcers", anemia "has had blood transfusion, and iron infusions", hiatal hernia, current excoriation R side abdominal fold and [facility] placing cream to buttock which pt states is red. History of Any Multi-Drug Resistant Organisms: Other MDRO Past Surgical History: Section, Ear Surgery Additional Past Surgical History / Comment(s): Debridement bilateral feet toe nails, 04/2020 EGDcolonoscopy-normal, L ear benign tumor removed, x 2. Past Anesthesia/Blood Transfusion Reactions: No Reported Reaction Additional Past Anesthesia/Blood Transfusion Reaction / Comm: blood transfusions- no reaction Past Psychological History: No Psychological Hx Reported Additional Psychological History / Comment(s): Pt currently at [facility] [place]. Pt is not ambulatory-they use lift to w/c Smoking Status: Former smoker Past Alcohol Use History: Rare Additional Past Alcohol Use History / Comment(s): started smoking at age 21 and quit 2007 a pack would last a week. Past Drug Use History: None Reported - Past Family History Mother Family Medical History: Cancer Additional Family Medical History / Comment(s): Mother of colon cancer at the age of 54 yrs. Father Family Medical History: Myocardial Infarction (TN) Additional Family Medical History / Comment(s): Father of a massive [place] at the age of 60 yrs. Medications and Allergies Home Medications Medication Instructions Recorded Confirmed Type Folic Acid 1 mg PO DAILY@1200 12/19/16 06/02/20 History Cholecalciferol [Vitamin D3 (25 2,000 unit PO DAILY@1700 12/30/16 06/02/20 History Mcg = 1000 Iu)] Ferrous Sulfate [Iron (65 MG 325 mg PO DAILY@1200 02/23/17 06/02/20 History Elemental)] bisacodyL [Dulcolax] 10 mg RECTAL DAILY PRN 02/23/17 06/02/20 History Atorvastatin [Lipitor] 40 mg PO HS@2100 06/25/17 06/02/20 History Calcium Acetate [PhosLo] 667 mg PO DAILY@0800 08/23/17 06/02/20 History Epoetin Juan Jose [Procrit] 20,000 unit SQ TH 08/23/17 06/02/20 History Linaclotide [Linzess] 145 mcg PO DAILY@0800 08/23/17 06/02/20 History Lactulose 10 gm PO BID PRN 11/20/18 06/02/20 History Sennosides [Senna] 8.6 - 17.2 mg PO HS PRN 11/20/18 06/02/20 History calcitrioL [Calcitriol] 0.25 mcg PO DAILY@1700 11/20/18 06/02/20 History Acetaminophen Tab [Tylenol] 650 mg PO Q4H PRN 05/23/19 06/02/20 History Aspirin 81 mg PO DAILY@1200 05/23/19 06/02/20 History Co Q-10 60mg 60 mg PO DAILY@1700 05/23/19 06/02/20 History Ipratropium-Albuterol Nebulize 3 ml INHALATION RT-QID 05/23/19 06/02/20 History [Duoneb 0.5 mg-3 mg/3 ml Soln] Isosorbide Mononitrate ER [Imdur] 30 mg PO DAILY@0800 05/23/19 06/02/20 History Hydrocortisone Cream 1 applic TOPICAL BID 10/28/19 06/02/20 History [Hydrocortisone 2.5% Cream] allopurinoL [Zyloprim] 100 mg PO DAILY@0800 10/28/19 06/02/20 History Albuterol Sulfate [Albuterol 2 puff PO RT-Q4H PRN 04/30/20 06/02/20 History Sulfate Hfa] Loratadine [Claritin] 10 mg PO Q48H PRN 04/30/20 06/02/20 History Magnesium Hydroxide [Milk of 7,200 mg PO DAILY PRN 04/30/20 06/02/20 History Magnesia Concentrate] Acetaminophen-Codeine 300-30mg 1 tab PO TID PRN #9 tab 05/03/20 06/02/20 Rx [Tylenol w/codeine #3] Caldesene Powder 1 applic TOPICAL BID 06/02/20 06/02/20 History Metoprolol Tartrate [Lopressor] 25 mg PO BID@0800,1700 06/02/20 06/02/20 History Potassium Chloride [Klor-Con 10] 10 meq PO SUTUTHSA@1700 06/02/20 06/02/20 H istory Torsemide [Demadex] 40 mg PO DAILY@0800 06/02/20 06/02/20 History Allergies Allergy/AdvReac Type Severity Reaction Status Date / Time Iodinated Contrast Media AdvReac SEE COMMENT Verified 06/02/20 13:03 [Iodinated Contrast- Oral and IV Dye] sodium phosphate AdvReac SEE COMMENT Verified 06/02/20 13:03 [From Fleet Enema] NEPHROTOXINS AdvReac SEE COMMENT Uncoded 06/02/20 13:03 Surgical - Exam Vital Signs Pulse Resp BP 68 18 119/4 06/02/20 12:34 06/02/20 12:34 06/02/20 12:34 Results - Labs 06/14/20 05:15 06/14/20 05:15 Abnormal Lab Results - Last 24 Hours (Table) 06/13/20 06/14/20 06/14/20 Range/Units 17:30 00:04 05:15 WBC 15.3 H (3.8-10.6) k/uL RBC 2.59 L (3.80-5.40) m/uL Hgb 7.2 L (11.4-16.0) gm/dL Hct 26.0 L (34.0-46.0) % MCV 100.1 H (80.0-100.0) fL MCHC 27.8 L (31.0-37.0) g/dL RDW 18.7 H (11.5-15.5) % Plt Count 73 L (150-450) k/uL Neutrophils # 13.1 H (1.3-7.7) k/uL Lymphocytes # 0.8 L (1.0-4.8) k/uL BUN (7-17) mg/dL Creatinine (0.52-1.04) mg/dL Glucose (74-99) mg/dL POC Glucose (mg/dL) 122 H 113 H (75-99) mg/dL AST (14-36) U/L ALT (4-34) U/L Total Protein (6.3-8.2) g/dL Albumin (3.5-5.0) g/dL 06/14/20 06/14/20 06/14/20 Range/Units 05:15 06:01 11:47 WBC (3.8-10.6) k/uL RBC (3.80-5.40) m/uL Hgb (11.4-16.0) gm/dL Hct (34.0-46.0) % MCV (80.0-100.0) fL MCHC (31.0-37.0) g/dL RDW (11.5-15.5) % Plt Count (150-450) k/uL Neutrophils # (1.3-7.7) k/uL Lymphocytes # (1.0-4.8) k/uL BUN 102 H* (7-17) mg/dL Creatinine 3.87 H (0.52-1.04) mg/dL Glucose 106 H (74-99) mg/dL POC Glucose (mg/dL) 108 H 124 H (75-99) mg/dL AST 68 H (14-36) U/L ALT 51 H (4-34) U/L Total Protein 5.9 L (6.3-8.2) g/dL Albumin 2.8 L (3.5-5.0) g/dL Diabetes panel 06/14/20 Range/Units 05:15 Sodium 142 (137-145) mmol/L Potassium 4.6 (3.5-5.1) mmol/L Chloride 107 (98-107) mmol/L Carbon Dioxide 27 (22-30) mmol/L BUN 102 H* (7-17) mg/dL Creatinine 3.87 H (0.52-1.04) mg/dL Glucose 106 H (74-99) mg/dL Calcium 8.8 (8.4-10.2) mg/dL AST 68 H (14-36) U/L ALT 51 H (4-34) U/L Alkaline Phosphatase 122 (38-126) U/L Total Protein 5.9 L (6.3-8.2) g/dL Albumin 2.8 L (3.5-5.0) g/dL Calcium panel 06/14/20 Range/Units 05:15 Calcium 8.8 (8.4-10.2) mg/dL Albumin 2.8 L (3.5-5.0) g/dL Pituitary panel 06/14/20 Range/Units 05:15 Sodium 142 (137-145) mmol/L Potassium 4.6 (3.5-5.1) mmol/L Chloride 107 (98-107) mmol/L Carbon Dioxide 27 (22-30) mmol/L BUN 102 H* (7-17) mg/dL Creatinine 3.87 H (0.52-1.04) mg/dL Glucose 106 H (74-99) mg/dL Calcium 8.8 (8.4-10.2) mg/dL Adrenal panel 06/14/20 Range/Units 05:15 Sodium 142 (137-145) mmol/L Potassium 4.6 (3.5-5.1) mmol/L Chloride 107 (98-107) mmol/L Carbon Dioxide 27 (22-30) mmol/L BUN 102 H* (7-17) mg/dL Creatinine 3.87 H (0.52-1.04) mg/dL Glucose 106 H (74-99) mg/dL Calcium 8.8 (8.4-10.2) mg/dL Total Bilirubin 1.2 (0.2-1.3) mg/dL AST 68 H (14-36) U/L ALT 51 H (4-34) U/L Alkaline Phosphatase 122 (38-126) U/L Total Protein 5.9 L (6.3-8.2) g/dL Albumin 2.8 L (3.5-5.0) g/dL
--- NOTE | 2020-06-14 14:37 | P.PN ---
Subjective 70-year-old patient was chronic stable medical conditions include CHF EF 55 and 55%, morbid obesity, chronic kidney disease stage IV secondary to ne phrosclerosis, renal bone disease, anemia of chronic kidney disease, persistent atrial fibrillation, fatty liver, COPD, primary osteoarthritis, obstructive sleep apnea, chronic gout, on home oxygen, chronic medical debility at her baseline uses a lift a wheelchair. Patient is a resident at [facility]. Patient presents with increasing swelling about a week. Increase in shortness of breath. Appetite is okay. Bowel movements are okay. No fever no chills. Started on IV Lasix. Admitted with CHF exacerbation. Put on IV Lasix. On June 04 -was taken to for thoracentesis and it was a bit difficult by IR. Patient went into PEA cardiac arrest. intubated. Hypotensive. Moved to ICU. Thora-vent was placed. About 850 mL of pus-bloody fluid was obtained. [id number]. On the ventilator. Telemetry shows sinus rhythm. Left chest tube to suction. On IV levo fed and propofol. Tube feeding. Granddaughter at the bedside. 06/08/2020 Patient is currently mechanical ventilator and is being monitored in the ICU. Sedated. low dose levophed. Chest x-ray showed cardiomegaly with central vascular congestion and small to moderate sized bilateral pleural fluid collections with the left sided pleural drainage catheter. Bronchial fluid cultures negative so far. Laboratory data showed WBC 8.2, hemoglobin 7.0 and platelets 87 BUN 84 and creatinine 3.29 Albumin 2.2 06/09/2020 Patient remains on ventilator and is currently sedated. Patient is also on Levophed drip. Chest x-ray showed suspect some improvement in patient's volume status. There may be basilar effusions. Atelectasis, difficult to exclude pneumonia. Patient does have chest tube with minimal drainage. Laboratory data showed WBC 11.8, hemoglobin 7.9 and platelets 87 BUN 88 and creatinine 3.06 Pulmonary and nephrology is on board. 06/10/2020 Patient is currently extubated and is saturating well on oxygen via nasal cannula. Patient is otherwise awake alert and trying to communicate. Chest x-ray this morning showed improving aeration of the left especially in the upper and midlung after left-sided chest tube placement. Focal opacity remains at the left base as well as trace right effusion. 2D echocardiogram showed ejection fraction 40 to 45% there is severe tricuspid regurgitation present. Severe pulmonary hypertension. Left ventricle systolic pressure is 84.96 mmHg. Laboratory data showed WBC 13.2, hemoglobin 7.3 and platelets 83 BUN 100 and creatinine 2.97 06/11/2020 Patient is currently remained ICU. Awake alert but not communicating. Patient is off the ventilator. Currently on oxygen via nasal cannula. Patient is status post chest tube placement. Repeat chest x-ray showed lung seems expanded but left lower lobe remains consolidated. Patient is still on Levophed drip at low-dose. Patient went into A. fib with RVR and was started on amiodarone drip. Cardiology was consulted. Creatinine level is elevated. Nephrology is following. 06/12/2020 Patient is currently in MICU. Awake alert and oriented but communicating very slowly. Able to follow simple commands. Continued on Lasix drip. Patient is also reporting Levophed drip. Amiodarone drip due to atrial fibrillation with RVR. Chest x-ray showed persistent left-sided volume loss with worsening left lung opacity despite chest tube in place. Suggests worsening left-sided pleural effusion and associated left lung atelectasis and/or infiltrate. Patient is being continued on antibiotics in the form of Zosyn. Cardiology, pulmonary and nephrology is on board. Laboratory data showed WBC 23.2, hemoglobin 7.3, platelets 131 BUN 96 and creatinine 3.56 Urinalysis is negative for infection. Patient has been afebrile. 06/13/2020 Patient is currently remains in MICU. More awake and oriented and able to talk simple words. Denied any chest pain. No worsening shortness of breath. patient is currently on oxygen via nasal cannula. Patient was BiPAP in the morning. Chest x-ray showed cardiomegaly and interstitial prominence correlate for CHF with mild pulmonary vascular congestion. Improving aeration in the left with decreased but persistent moderate left pleural effusion with adjacent atelectasis and/or consolidation. Chest tube remains in place. Increasing small right effusion. remains on levophed. 06/14/2020 Patient says she is feeling better. Patient can use to have left-sided chest tube to wall suction there is a concern about chylothorax patient remains on IV Lasix drip, patient is also on IV hydrocortisone every 6 hours. Patient does have sick euthyroid syndrome TSH need to be repeated again. Constitutional: Denied any fatigue denied any fever. Cardio vascular: denied any chest pain, palpitations Gastrointestinal denied any nausea vomiting Pulmonary: Denied any shortness of breath cough Neurologic denied any new focal deficits All inpatient medications were reviewed and appropriate changes in these medications as dictated in the interval history and assessment and plan. Objective - Vital Signs Vital signs: Vital Signs Temp 97.0 F L 06/14/20 12:00 Pulse 81 06/14/20 14:00 Resp 22 06/14/20 14:00 BP 134/73 06/14/20 07:00 Pulse Ox 100 06/14/20 12:00 Intake & Output 06/13/20 06/14/20 06/14/20 18:59 06:59 18:59 Intake Total 946.672 559.544 498.058 Output Total 295 485 150 Balance 651.672 74.544 348.058 Weight 211.05 kg 211.05 kg Intake: IV 276 276 161 0.9 pressure bag 36 36 21 Sodium Chloride 0.9% 1, 240 240 140 000 ml @ 20 mls/hr IV . Q24H CARLOS Rx#:[id number] Intake, IV Titration 330.672 283.544 97.058 Amount Furosemide 100 mg In 106.417 77.583 89.5 Sodium Chloride 0.9% 90 ml @ 10 MG/HR 10 mls/hr IV .Q10H CARLOS Rx#: [id number] Norepinephrine 32 mg In 124.255 105.961 7.558 Sodium Chloride 0.9% 218 ml @ 0.05 MCG/KG/MIN 4. 784 mls/hr IV .Q24H [facility]LOS Rx#:[id number] Piperacillin-Tazobactam 3 100 100 .375 gm In Sodium Chloride 0.9% 100 ml @ 25 mls/hr IVPB Q12HR [facility] Rx #:[id number] Oral 120 240 Tube Feeding 220 Output: Chest Tube Drainage 150 40 Chest Tube Left Posterior 150 40 Chest Urine 295 335 110 Other: Voiding Method Indwelling Catheter Indwelling Catheter Indwelling Catheter ABP, PAP, CO, CI - Last Documented Arterial Blood Pressure 99/53 - Exam PHYSICAL EXAMINATION: GENERAL: The patient is alert and oriented x3, not in any acute distress. Morbidly obese him on 5 L of oxygen HEENT: Pupils are round and equally reacting to light. EOMI. No scleral icterus. No conjunctival pallor. Normocephalic, atraumatic. No pharyngeal erythema. No thyromegaly. CARDIOVASCULAR: S1 and S2 present. No murmurs, rubs, or gallops. PULMONARY: Chest is clear to auscultation, no wheezing or crackles. ABDOMEN: Soft, nontender, nondistended, normoactive bowel sounds. No palpable organomegaly. MUSCULOSKELETAL: No joint swelling or deformity. EXTREMITIES: No cyanosis, clubbing, does have pedal edema NEUROLOGICAL: Gross neurological examination did not reveal any focal deficits. SKIN: No rashes. - Labs CBC & Chem 7: 06/14/20 05:15 06/14/20 05:15 Labs: Abnormal Lab Results - Last 24 Hours (Table) 06/13/20 06/14/20 06/14/20 Range/Units 17:30 00:04 05:15 WBC 15.3 H (3.8-10.6) k/uL RBC 2.59 L (3.80-5.40) m/uL Hgb 7.2 L (11.4-16.0) gm/dL Hct 26.0 L (34.0-46.0) % MCV 100.1 H (80.0-100.0) fL MCHC 27.8 L (31.0-37.0) g/dL RDW 18.7 H (11.5-15.5) % Plt Count 73 L (150-450) k/uL Neutrophils # 13.1 H (1.3-7.7) k/uL Lymphocytes # 0.8 L (1.0-4.8) k/uL BUN (7-17) mg/dL Creatinine (0.52-1.04) mg/dL Glucose (74-99) mg/dL POC Glucose (mg/dL) 122 H 113 H (75-99) mg/dL AST (14-36) U/L ALT (4-34) U/L Total Protein (6.3-8.2) g/dL Albumin (3.5-5.0) g/dL 06/14/20 06/14/20 06/14/20 Range/Units 05:15 06:01 11:47 WBC (3.8-10.6) k/uL RBC (3.80-5.40) m/uL Hgb (11.4-16.0) gm/dL Hct (34.0-46.0) % MCV (80.0-100.0) fL MCHC (31.0-37.0) g/dL RDW (11.5-15.5) % Plt Count (150-450) k/uL Neutrophils # (1.3-7.7) k/uL Lymphocytes # (1.0-4.8) k/uL BUN 102 H* (7-17) mg/dL Creatinine 3.87 H (0.52-1.04) mg/dL Glucose 106 H (74-99) mg/dL POC Glucose (mg/dL) 108 H 124 H (75-99) mg/dL AST 68 H (14-36) U/L ALT 51 H (4-34) U/L Total Protein 5.9 L (6.3-8.2) g/dL Albumin 2.8 L (3.5-5.0) g/dL Assessment and Plan Plan: Assessment and Plan Assessment: -s/p Cardiac arrest with PEA, patient was intubated and was extubated on the June 09, patient had complete opacification of the left lung and had pleural t ap and presently at bedtime 2 the fluid was suspicious for chylothorax and the fluid was transudative nature -Acute hypoxic, hypercapnic respiratory failure-requiring ventilator support- slow to respond. -Left-sided pleural effusion and consolidation and a possible pneumonia and patient is on IV antibiotics in form of Zosyn Status post chest tube placement -New onset A. fib with RVR. -Hypotensive shock requiring pressor support. possibe Septic shock due to Pneumonia -Acute on Chronic congestive heart failure from diastolic dysfunction - Severe pulmonary hypertension and severe TR. - Acute kidney injury secondary to ATN secondary to cardiac arrest/hemodynamic instability. -Chronic kidney disease stage IV secondary to nephrosclerosis, patient will undergo catheter placement for possible dialysis -Morbid obesity BMI 75.2 -Chronic kidney disease renal bone disease -Anemia of chronic kidney disease -Persistent atrial fibrillation, rate controlled Nonalcoholic fatty liver disease -COPD in an ex-smoker -Primary osteoarthritis -Obstructive sleep apnea -Chronic gout -Chronic hypoxic respiratory failure from COPD -Chronic medical debility and a baseline patient does use a lift to a wheelchair -Thoracentesis patient has a left-sided chest tube
--- NOTE | 2020-06-14 16:43 | PN ---
PROGRESS NOTE Patient is seen for followup for acute kidney injury on top of chronic kidney disease. Patient is maintained on Lasix drip. Urine output had initially picked up. Currently it is at about 20 to 15 mL/hour. Blood pressure remains slightly on the lower side. However, Levophed is significantly down from 20 mcg to about 10 mcg now. I have discussed with the patient's daughter that, given the ongoing volume overload, CHF and poor urine output, the patient will need renal replacement therapy again. We will proceed with vascular surgery consult and plan for dialysis treatment tomorrow. On examination this morning, blood pressure was 95/49, heart rate of 80 per minute. Patient is afebrile. EXAMINATION OF THE HEART: S1 and S2. EXAMINATION OF LUNGS: Decreased breath sounds at bases. ABDOMEN: Soft, morbidly obese. Examination of lower extremities shows edema 2 to 3+ bilaterally with chronic skin changes noted. INSTRUMENTATION AND CONTROLS DESIGNER exam shows patient is moving all 4 extremities. She follows commands. Labs show sodium 142, potassium 4.7, chloride 107, BUN 102, serum creatinine 3.87, hemoglobin 7.2 g/dL. ASSESSMENT: 1. Acute kidney injury, mostly cardiorenal, currently oliguric. We will plan for hemodialysis tomorrow. 2. Congestive heart failure, volume overload, maintained on Lasix drip. I will increase it to 15 mg/hour until patient is dialyzed tomorrow. 3. Cardiomyopathy; mostly diastolic dysfunction. 4. Chronic kidney disease, stage 4, secondary to diabetic kidney disease and nephrosclerosis. Baseline creatinine 2.7 to 3 mg/dL. 5. Status post PEA cardiac arrest. 6. Pneumothorax, status post left-sided chest tube placement. 7. Anemia. No active bleeding noted. Patient is maintained on Aranesp. PLAN: Increase Lasix drip to 15 mg/hour. Proceed with dialysis, mostly for persistent volume overload. Continue to wean down Levophed. Consult Vascular Surgery. We will plan for hemodialysis in a.m. Increase Lasix drip to 15 mg/hour. MMODL / IJN: [id number] /
[2020-06-14] MEDS ORDERED: IV FLUID CONTINUATION 1,000 ML IV ONE (16:52)
[2020-06-14] MEDS ORDERED: LIDOCAINE 1% INJ 10MG/ML (20 ML MDV) SQ ONE (17:05)
[2020-06-14] MEDS ORDERED: HEPARIN SODIUM 1,000 UN/ML (10ML VL) IV ONE (17:50)
[2020-06-14] MEDS: CHOLECALCIFEROL 1,000 UNIT TAB PO SCH (18:17)
[2020-06-14 18:21] LABS: Glucose,Whole Blood 112 mg/dL (75-99)
[2020-06-14 20:03] LABS: Hepatitis B Surface AB- Quant 3.5 mIU/mL; Hepatitis B Surface Antibody Non-Reactive (Non-Reactive); Hepatitis B Surface Antigen Non-Reactive (Non-Reactive)
[2020-06-14] MEDS: ATORVASTATIN 40 MG TAB PO SCH (20:57)
[2020-06-14 22:08] LABS: Glucose,Whole Blood 109 mg/dL (75-99)
[2020-06-14 22:20] LABS: ABG Base Excess -3.4 mmol/L; ABG HCO3 26 mmol/L (21-25); ABG Oxygen Saturation 94.8 % (94-97); ABG PO2 82 mmHg (83-108); ABG TCO2 28 mmol/L (19-24)
[2020-06-14 22:46] LABS: Allen Test Performed? no
[2020-06-14 23:36] LABS: Glucose,Whole Blood 117 mg/dL (75-99)
[2020-06-15] MEDS: INSULIN ASPART (NovoLOG) 100 UNIT/ML VIAL SQ SCH ×4 (00:58→18:25)
[2020-06-15] MEDS: HYDROCORTISONE SUCCINATE 100 MG/2 ML VIAL IV SCH ×4 (01:09→18:25)
--- NOTE | 2020-06-15 01:35 | PCN ---
PROCEDURE NOTE PREOPERATIVE DIAGNOSIS: Acute chronic renal failure. POSTOPERATIVE DIAGNOSIS: Acute chronic renal failure. PROCEDURE: Ultrasound-guided 19 cm dialysis catheter placed right jugular approach. Sedation time is 42 minutes. DESCRIPTION OF PROCEDURE: This patient was brought to the gold leaf laborer. Right side of the neck and chest was prepped and draped in usual sterile manner. One percent lidocaine infiltrated. Ultrasound- guided micropuncture was introduced into the right jugular vein. Micropuncture guide was passed and then 4-Telugu dilator advanced on top of the guidewire. We injected dye to confirm the vena cava. was opened. At this point, we created a tunnel. Through the tunnel we brought 19 cm dialysis catheter. Then dilator was advanced and sheath was advanced on the top of the guidewire. Through the sheath we introduced the dialysis catheter. Sheath was removed, tip of catheter in superior vena cava and atrial junction, flushed with heparin saline and hep-locked, secured with 3-0 nylon. Dressing applied. Patient tolerated the procedure well. MMODL / IJN: [id number] /
[2020-06-15 05:44] LABS: Anisocytosis Slight; Basophils % (A) 0 %; Eosinophils % (A) 0 %; HCT 24.9 % (34.0-46.0); Hypochromasia Marked; Lymphocytes # (A) 0.5 k/uL (1.0-4.8); Lymphocytes % (A) 4 %; MCH 27.3 pg (25.0-35.0); MCHC 27.1 g/dL (31.0-37.0); MCV 100.8 fL (80.0-100.0); Macrocytosis Moderate; Mean Platelet Volume 12.3; Monocytes # (A) 0.4 k/uL (0-1.0); Monocytes % (A) 3 %; Neutrophils # (A) 13.3 k/uL (1.3-7.7); Neutrophils % (A) 93 %; Poikilocytosis Slight; RBC 2.47 m/uL (3.80-5.40); RDW 18.7 % (11.5-15.5); WBC 14.4 k/uL (3.8-10.6)
[2020-06-15 05:51] LABS: Albumin 2.8 g/dL (3.5-5.0); Calcium 8.8 mg/dL (8.4-10.2); Potassium 5.3 mmol/L (3.5-5.1); Total Bilirubin 1.3 mg/dL (0.2-1.3)
[2020-06-15 05:55] LABS: Platelet Count 81 k/uL (150-450)
[2020-06-15 05:56] LABS: HGB 6.8 gm/dL (11.4-16.0)
[2020-06-15] MEDS: FUROSEMIDE 100 MG in SODIUM CHLORIDE 0.9% 90 ML IV SCH (05:59)
[2020-06-15 06:49] LABS: ABG Base Excess -3.7 mmol/L; ABG HCO3 24 mmol/L (21-25); ABG Oxygen Saturation 88.6 % (94-97); ABG PCO2 60 mmHg (35-45); ABG PH 7.21 (7.35-7.45); ABG PO2 60 mmHg (83-108); ABG TCO2 26 mmol/L (19-24); Allen Test Performed? Yes
[2020-06-15] MEDS: NOREPINEPHRINE 32 MG in SODIUM CHLORIDE 0.9% 218 ML IV SCH (07:04)
--- NOTE | 2020-06-15 07:34 | P.PN ---
Subjective Progress Note Date: 06/15/20 Principal diagnosis: Acute left lung opacification 70-year-old female patient, [facility] who was referred back to the emergency department because of worsening shortness of breath and hypoxemia. The patient had significant amount of weight gain in the order of 11 pounds over this past week. She also reported worsening lower extremity edema. She was unable to ambulate. She is currently bedbound. She is morbidly obese with a BMI of 34.2. No fever no chills. No aspiration. She has a mild cough. No chest pain. The chest x-rays showing complete opacification of the left lung without any significant shift of the trachea or volume loss. The left mainstem bronchus is currently off. White cell count 9.3 with hemoglobin of 7.9. Coagulation profile is within normal. 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 Serum bicarb is 29 with a sodium of 138. The liver functions is on essentially within normal limits. Albumin is at 3.3 with a total protein of 6.9. ProBNP level was 11,300. Currently, the patient is on 2 L of oxygen by nasal cannula. Pulse ox and order of 97%. Long with stage IV kidney disease secondary to do hypertensive nephrosclerosis. She also has chronic anemia, chronic proximal atrial fibrillation, COPD, osteoarthritis, obstructive sleep apnea, gout and she Zyvox and dependent and she has home O2. She is medically debilitated and she is a left and a walker. She is a resident of a [facility]. During her most recent hospitalization, the anemia was further worked up by EGD EGD showed mild gastritis. There was mild duodenitis. There was a small hiatal hernia. The patient is seen today 06/03/2020 in follow-up on the selective care unit. She is awake and alert in no acute distress. Currently resting flat in bed. Maintaining O2 saturation in the mid 90s on 2 L/m per nasal cannula. She's been afebrile. Was unable to tolerate a computed tomography scan of the chest yesterday. Sodium 138. Potassium 6.0. Creatinine 3.54. She remains on Lasix 80 mg IV every 12 hours. On 06/04/2020 patient seen in follow-up on selective care unit. She is resting comfortably in bed. She appears to be in no acute distress, she is on 2 L of oxygen her pulse ox is 92-100%, hemodynamically she stable, no couplets or chest pain, she's been afebrile, yesterday she had unsuccessful attempt at ultrasound- guided left thoracentesis, and patient was experiencing a lot of discomfort when the staff was trying to position her for the thoracentesis, and the procedure was aborted. Electrolytes are within normal limits, BUN was 96, creatinine was 3.74. She remains on diuretics 40 mg every 12 hours, her lower extremity edema slightly improved. Lung sounds reveal absent breath sounds on the left, and clear diminished breath sounds on the right, no cough or congestion. No altered mentation. Follow-up chest x-ray today shows stable findings complete opacified left hemithorax without mediastinal shift. On 06/14/2020 patient seen in follow-up in the intensive care unit, she is awake and alert, she is oriented 3, no evidence of distress, she is currently on 5 L of oxygen and the pulse ox of 98%, she has been afebrile, respirations are nonlabored, lung sounds are clear, diminished at the bases, left-sided chest tube remains in place to wall suction, and there has been 150 mL of serosanguineous output in the last 24 hours. No evidence of air leak. Today's chest x-ray shows no evidence of a sizable pneumothorax. Pleural fluid cultures have shown no growth, blood culture was negative. IV fluids include Lasix at 10 mg per hour, Levaquin fed is at 22 mics per minute, and 0.9 normal saline at a rate of 20 ML per hour, patient has been in positive fluid balance over the last 24 hours of 726 ML. Still has quite significant edema involving upper and lower extremities. Her cortisol level was 20, and we will add IV hydrocortisone 50 mg every 6 hours. TSH was 5.72, and patient will be started on thyroid hormone replacement. Patient remains on empiric antibiotics in the form of Zosyn. She remains in atrial fibrillation/atrial flutter, with the controlled rates. Today's labs have been reviewed, renal profile slightly bumped up, with BUN of 102, and creatinine of 3.87,, Celexa lites within normal limits, white blood cell count is trending down, down to 15.3, hemoglobin is 7.2 On a weekly 18 2020 patient seen in follow-up in the intensive care unit, she appears to be more lethargic on today's exam although she opens eyes to verbal s timuli and nods her head appropriately to yes or no questions. Overnight she was placed on BiPAP support, with pressures of 12 and 5 and 40%. This morning his blood gases show pO2 of 82, P CO2 of 73, and pH of 7.15. BiPAP settings were adjusted, and current pressures are 14 over 4 and FiO2 of 35%. Repeat blood gases showed pO2 of 60, pCO2 of 60, and pH of 7.212. Current drips include 0.9 normal saline at a rate of 20, Lasix drip at 15 mg per hour, however patient has not produced much urine, and at this point she is practically and uric. We will head is currently infusing at a rate of 14 mics per minute. Renal function continues to worsen, with B1 up to 102, and creatinine of 4.45. Patient had a right subclavian hemodialysis catheter placed yesterday by vascular surgery, with plans of initiating hemodialysis today. Labs have been reviewed, showing white blood cell count of 14.4, hemoglobin of 6.8, platelet count of 81, potassium is 5.3, the rest of the electrolytes are within normal limits, he is up to 128, ALT is 89, alkaline phosphatase is 118. Microbiology has been reviewed, showing no growth, blood cultures or pleural fluid cultures. Cytology the left pleural fluid Was negative for cells diagnostic of neoplasm. Objective - Vital Signs Vital signs: Vital Signs Temp 96.8 F L 06/15/20 04:00 Pulse 91 06/15/20 07:00 Resp 17 06/15/20 07:00 BP 134/73 06/14/20 07:00 Pulse Ox 91 L 06/15/20 07:00 Intake & Output 06/14/20 06/15/20 06/15/20 18:59 06:59 18:59 Intake Total 617.058 658.450 23 Output Total 210 179 10 Balance 407.058 479.450 13 Weight 211.05 kg 209.469 kg Intake: IV 280 253 23 0.9 pressure bag 30 33 3 Sodium Chloride 0.9% 1, 200 220 20 000 ml @ 20 mls/hr IV . Q24H [facility] Rx#:[id number] Intake, IV Titration 97.058 405.450 Amount Furosemide 100 mg In 89.5 Sodium Chloride 0.9% 90 ml @ 10 MG/HR 10 mls/hr IV .Q10H [facility] Rx#: [id number] Furosemide 100 mg In 200 Sodium Chloride 0.9% 90 ml @ 15 MG/HR 15 mls/hr IV .Q6H40M [facility] Rx#: [id number] Norepinephrine 32 mg In 7.558 205.450 Sodium Chloride 0.9% 218 ml @ 0.05 MCG/KG/MIN 4. 784 mls/hr IV .Q24H [facility] Rx#:[id number] Oral 240 Output: Chest Tube Drainage 40 0 Chest Tube Left Posterior 40 0 Chest Urine 170 179 10 Other: Voiding Method Indwelling Catheter Indwelling Catheter ABP, PAP, CO, CI - Last Documented Arterial Blood Pressure 112/52 - Exam GENERAL EXAM: Lethargic but arousable to verbal stimuli very pleasant, supra- morbidly obese 70-year-old -[place] female on BiPAP support with pressures of 14 over 4, and FiO2 of 35% 91% comfortable in no apparent distress. Wearing BiPAP support intermittently, and bedtime HEAD: Normocephalic/atraumatic. EYES: Normal reaction of pupils, equal size. Conjunctiva pink, sclera white. NOSE: Clear with pink turbinates. THROAT: No erythema or exudates. NECK: No masses, no JVD, no thyroid enlargement, no adenopathy. CHEST: No chest wall deformity. Symmetrical expansion. Left chest tube is in place, to wall suction, with no evidence of air leak, with thin serosanguineous output in the Pleur-evac. Right subclavian temporary hemodialysis catheter in place inserted on 06/14/2020 LUNGS: Equal air entry with no crackles, wheeze, rhonchi or dullness. CVS: Regular rate and rhythm, normal S1 and S2, no gallops, no murmurs, no rubs ABDOMEN: Soft, nontender. No hepatosplenomegaly, normal bowel sounds, no guarding or rigidity. EXTREMITIES: No clubbing, 2+ lower extremity edema, involving thighs, lower legs, pedal edema, ankle edema, and some mild edema involving upper extremities, no cyanosis, 2+ pulses and upper and lower extremities. MUSCULOSKELETAL: Muscle strength and tone normal. SPINE: No scoliosis or deformity SKIN: No rashes CENTRAL NERVOUS SYSTEM: Lethargic and oriented -2. No focal deficits, tone is normal in all 4 extremities. PSYCHIATRIC: Lethargic and oriented -2. Appropriate affect. Intact judgment and insight. - Labs CBC & Chem 7: 06/15/20 04:36 06/15/20 04:36 Labs: Abnormal Lab Results - Last 24 Hours (Table) 06/14/20 06/14/20 06/14/20 Range/Units 11:47 18:19 22:06 WBC (3.8-10.6) k/uL RBC (3.80-5.40) m/uL Hgb (11.4-16.0) gm/dL Hct (34.0-46.0) % MCV (80.0-100.0) fL MCHC (31.0-37.0) g/dL RDW (11.5-15.5) % Plt Count (150-450) k/uL Neutrophils # (1.3-7.7) k/uL Lymphocytes # (1.0-4.8) k/uL ABG pH (7.35-7.45) ABG pCO2 (35-45) mmHg ABG pO2 (83-108) mmHg ABG HCO3 (21-25) mmol/L ABG Total CO2 (19-24) mmol/L ABG O2 Saturation (94-97) % Potassium (3.5-5.1) mmol/L BUN (7-17) mg/dL Creatinine (0.52-1.04) mg/dL Glucose (74-99) mg/dL POC Glucose (mg/dL) 124 H 112 H 109 H (75-99) mg/dL AST (14-36) U/L ALT (4-34) U/L Total Protein (6.3-8.2) g/dL Albumin (3.5-5.0) g/dL 06/14/20 06/14/20 06/15/20 Range/Units 22:17 23:35 04:36 WBC 14.4 H (3.8-10.6) k/uL RBC 2.47 L (3.80-5.40) m/uL Hgb 6.8 L* (11.4-16.0) gm/dL Hct 24.9 L (34.0-46.0) % MCV 100.8 H (80.0-100.0) fL MCHC 27.1 L (31.0-37.0) g/dL RDW 18.7 H (11.5-15.5) % Plt Count 81 L (150-450) k/uL Neutrophils # 13.3 H (1.3-7.7) k/uL Lymphocytes # 0.5 L (1.0-4.8) k/uL ABG pH 7.15 L* (7.35-7.45) ABG pCO2 73 H* (35-45) mmHg ABG pO2 82 L (83-108) mmHg ABG HCO3 26 H (21-25) mmol/L ABG Total CO2 28 H (19-24) mmol/L ABG O2 Saturation (94-97) % Potassium (3.5-5.1) mmol/L BUN (7-17) mg/dL Creatinine (0.52-1.04) mg/dL Glucose (74-99) mg/dL POC Glucose (mg/dL) 117 H (75-99) mg/dL AST (14-36) U/L ALT (4-34) U/L Total Protein (6.3-8.2) g/dL Albumin (3.5-5.0) g/dL 06/15/20 06/15/20 Range/Units 04:36 06:43 WBC (3.8-10.6) k/uL RBC (3.80-5.40) m/uL Hgb (11.4-16.0) gm/dL Hct (34.0-46.0) % MCV (80.0-100.0) fL MCHC (31.0-37.0) g/dL RDW (11.5-15.5) % Plt Count (150-450) k/uL Neutrophils # (1.3-7.7) k/uL Lymphocytes # (1.0-4.8) k/uL ABG pH 7.21 L (7.35-7.45) ABG pCO2 60 H (35-45) mmHg ABG pO2 60 L (83-108) mmHg ABG HCO3 (21-25) mmol/L ABG Total CO2 26 H (19-24) mmol/L ABG O2 Saturation 88.6 L (94-97) % Potassium 5.3 H (3.5-5.1) mmol/L BUN 102 H* (7-17) mg/dL Creatinine 4.45 H (0.52-1.04) mg/dL Glucose 114 H (74-99) mg/dL POC Glucose (mg/dL) (75-99) mg/dL AST 128 H (14-36) U/L ALT 89 H (4-34) U/L Total Protein 6.0 L (6.3-8.2) g/dL Albumin 2.8 L (3.5-5.0) g/dL Assessment and Plan Plan: Assessment: #1. Acute on chronic hypoxic respiratory failure, presented complete opacification of the left lung and large left-sided pleural effusion, transudative in nature, the fluid was suspicious for chylothorax at one time, with significantly elevated triglycerides. Today on 06/15/2020 left-sided chest tube remains in place, with minimal output in the last 24 hours, no evidence of air leak, pleural fluid cultures were negative, cytology was negative #2. Acute left lower lobe pneumonia and possible septic shock on presentation, pleural fluid cultures have shown no growth, remains on empiric antibiotic coverage in the form of Zosyn #3. Morbid obesity with BMI of 74.2 #4. Chronic hypoxic respiratory failure, normally on 2 L per nasal cannula #5. Chronic kidney disease stage IV #6. Chronic gastritis #7. Chronic diastolic congestive heart failure #8. Anemia of chronic kidney disease #9. Nonalcoholic fatty liver disease #10. COPD, ex-smoker, presently inactive #11. Medical debility, patient is bedbound #12. Chronic gout #13. Obstructive sleep apnea syndrome #14. Status post left-sided chest tube thoracostomy on 06/10/2020 for recurrence of left lung opacification #15. Chronic atrial fibrillation/flutter, not any chronic anticoagulation related to chronic anemia and recurrent episodes of bleeding #16. Mild to moderately impaired left ventricle systolic function with severe pulmonary hypertension #17. Secondary adrenal insufficiency related to pneumonia and sepsis #18. Hypothyroidism #19 Acute kidney injury, secondary to the ATN, related to cardiac a rrest/hemodynamic instability, creatinine is continually worsening, and patient is in uric, right subclavian hemodialysis was inserted on 06/14/2020 and hemodialysis will be initiated today Plan: BiPAP support has been adjusted, and current pressures of 14 over 4, and FiO2 of 35%. Repeat blood gases were reviewed, labs have been reviewed, there has been further worsening of kidney function, and patient is in uric, we'll discontinue the Lasix, patient will be started on hemodialysis today, continue with current antibiotics, so far pleural fluid and blood cultures are all negative, patient is afebrile. We'll keep the left-sided chest tube and placement on the day, we'll place a to waterseal, repeat chest x-ray in the morning, if left lung remains reexpanded will consider discontinuing the chest tube tomorrow. GI and DVT prophylaxis. Overall prognosis is extremely guarded, CODE STATUS needs to be addressed by the primary care, as the patient will likely have extremely difficult time weaning off the ventilator, if she is intubated and placed on life-support. I performed a history & physical examination of the patient and discussed their management with my nurse practitioner, Perri Forrest. I reviewed the nurse practitioner's note and agree with the documented findings and plan of care. Lung sounds are positive for diminished breath sounds at the bases. The findings and the impression was discussed with the patient. I attest to the documentation by the nurse practitioner. Time with Patient: Greater than 30
[2020-06-15] MEDS: IPRATROPIUM-ALBUTEROL 3 ML NEB INHALATION SCH ×4 (08:03→19:50)
[2020-06-15 08:25] LABS: ABG PH 7.15 (7.35-7.45)
--- NOTE | 2020-06-15 08:43 | XR ---
EXAMINATION TYPE: XR chest 1V portable DATE OF EXAM: 06/15/2020 CLINICAL HISTORY: Effusion TECHNIQUE: Portable supine view of the chest obtained COMPARISON: 06/14/2020 chest radiograph FINDINGS: Right-sided internal jugular hemodialysis catheter distal tip near the cavoatrial junction. Redemonstrated left-sided chest tube and left internal jugular central venous catheter. Pulmonary va scular congestion, perihilar airspace opacities, and small right pleural effusion redemonstrated. The re is mild increased size of the left pleural effusion. Supine technique limits evaluation for pneumo thorax. Degenerative changes of the spine and shoulders. IMPRESSION: 1. Left pleural effusion is likely mildly increased in size versus 06/14/2020 given differences in alina hnique. 2. Pulmonary vascular congestion, airspace opacities, and small right pleural effusion appears munir orozco
--- NOTE | 2020-06-15 08:48 | IR ---
EXAMINATION TYPE: IR cvc insert central tunneled DATE OF EXAM: 06/14/2020 COMPARISON: Chest radiograph 06/14/2020 HISTORY: Tunneled hemodialysis catheter TECHNIQUE: Fluoroscopy. FINDINGS: Fluoroscopic guidance was provided during procedure for performing physician. A total of 5 minutes of fluoroscopic time was utilized during the procedure and 869 images were acquired. Please see operative report for additional details. IMPRESSION: As Above.
[2020-06-15] MEDS: CALCIUM ACETATE 667 MG TAB PO SCH ×2 (08:53→09:48)
[2020-06-15] MEDS: allopurinoL 100 MG TAB PO SCH ×2 (08:53→09:48)
[2020-06-15] MEDS: AMIODARONE 200 MG TAB PO SCH ×3 (08:53→20:57)
[2020-06-15] MEDS: MIDODRINE 5 MG TAB PO SCH ×3 (08:53→17:59)
[2020-06-15] MEDS: NON FORMULARY DRUG (Linaclotide [Linzess] 145 MCG) PO SCH (08:54)
[2020-06-15] MEDS ORDERED: HEPARIN SODIUM,PORCINE 5,000 UNIT/ML 1 ML VIAL ONE (09:00)
--- NOTE | 2020-06-15 09:20 | P.PN ---
Subjective Progress Note Date: 06/15/20 Principal diagnosis: Left pleural effusion, acute hypercapnic respiratory failure, acute on chronic diastolic heart failure. Previous medical history of chronic atrial fibrillatio n on no anticoagulation due to history of bleeding, chronic hypoxic respiratory failure on home oxygen, morbid obesity, hypertension, stage IV chronic kidney disease, chronic anemia, obstructive sleep apnea with home CPAP use, previous tobacco dependence, medical debility, osteoarthritis. POD #5 left chest tube placement The patient is currently laying in bed in the intensive care unit in no acute distress. She is currently on Bipap with oxygen saturation 92%. She is on Levophed at 0.08 mcg/kg/min . Left pleural chest tube remains, no air leak present. Objective - Vital Signs Vital signs: Vital Signs Temp 96.8 F L 06/15/20 04:00 Pulse 91 06/15/20 07:00 Resp 17 06/15/20 07:00 BP 134/73 06/14/20 07:00 Pulse Ox 91 L 06/15/20 07:00 Intake & Output 06/14/20 06/15/20 06/15/20 18:59 06:59 18:59 Intake Total 617.058 658.450 23 Output Total 210 179 10 Balance 407.058 479.450 13 Weight 211.05 kg 209.469 kg Intake: IV 280 253 23 0.9 pressure bag 30 33 3 Sodium Chloride 0.9% 1, 200 220 20 000 ml @ 20 mls/hr IV . Q24H [facility] Rx#:[id number] Intake, IV Titration 97.058 405.450 Amount Furosemide 100 mg In 89.5 Sodium Chloride 0.9% 90 ml @ 10 MG/HR 10 mls/hr IV .Q10H [facility] Rx#: [id number] Furosemide 100 mg In 200 Sodium Chloride 0.9% 90 ml @ 15 MG/HR 15 mls/hr IV .Q6H40M [facility] Rx#: [id number] Norepinephrine 32 mg In 7.558 205.450 Sodium Chloride 0.9% 218 ml @ 0.05 MCG/KG/MIN 4. 784 mls/hr IV .Q24H [facility] Rx#:[id number] Oral 240 Output: Chest Tube Drainage 40 0 Chest Tube Left Posterior 40 0 Chest Urine 170 179 10 Other: Voiding Method Indwelling Catheter Indwelling Catheter ABP, PAP, CO, CI - Last Documented Arterial Blood Pressure 112/52 - Constitutional General appearance: Present: morbidly obese, no acute distress - Neck Details: Right IJ Kwadwo, Left IJ central line present - Respiratory Details: Lungs sounds diminished on the left. Respirations even, nonlabored. Currently on BiPap with oxygen saturation 92%. Left pleural chest tube present, 200 mL in the last 24 hours, no air leak present. - Cardiovascular Details: S1/S2 present, irregular rate and rhythm, atrial fibrillation on telemetry. Palpable pulses bilaterally, generalized edema present. - Gastrointestinal Gastrointestinal Comment(s): Abdomen soft, nontender, nondistended, obese. Active bowel sounds present 4 quadrants. - Genitourinary Genitourinary Comment(s): Arteaga present draining clear, yellow urine - Integumentary Integumentary Comment(s): Skin is warm and dry. She does have several areas of tape tapia and maceration from tape - Neurologic Neurologic: Present: CNII-XII intact - Musculoskeletal Musculoskeletal: Present: generalized weakness - Psychiatric Psychiatric: Present: appropriate affect - Allied health notes Allied health notes reviewed: nursing - Labs CBC & Chem 7: 06/15/20 04:36 06/15/20 04:36 Labs: Abnormal Lab Results - Last 24 Hours (Table) 06/14/20 06/14/20 06/14/20 Range/Units 11:47 18:19 22:06 WBC (3.8-10.6) k/uL RBC (3.80-5.40) m/uL Hgb (11.4-16.0) gm/dL Hct (34.0-46.0) % MCV (80.0-100.0) fL MCHC (31.0-37.0) g/dL RDW (11.5-15.5) % Plt Count (150-450) k/uL Neutrophils # (1.3-7.7) k/uL Lymphocytes # (1.0-4.8) k/uL ABG pH (7.35-7.45) ABG pCO2 (35-45) mmHg ABG pO2 (83-108) mmHg ABG HCO3 (21-25) mmol/L ABG Total CO2 (19-24) mmol/L ABG O2 Saturation (94-97) % Potassium (3.5-5.1) mmol/L BUN (7-17) mg/dL Creatinine (0.52-1.04) mg/dL Glucose (74-99) mg/dL POC Glucose (mg/dL) 124 H 112 H 109 H (75-99) mg/dL AST (14-36) U/L ALT (4-34) U/L Total Protein (6.3-8.2) g/dL Albumin (3.5-5.0) g/dL Crossmatch 06/14/20 06/14/20 06/15/20 Range/Units 22:17 23:35 04:36 WBC 14.4 H (3.8-10.6) k/uL RBC 2.47 L (3.80-5.40) m/uL Hgb 6.8 L* (11.4-16.0) gm/dL Hct 24.9 L (34.0-46.0) % MCV 100.8 H (80.0-100.0) fL MCHC 27.1 L (31.0-37.0) g/dL RDW 18.7 H (11.5-15.5) % Plt Count 81 L (150-450) k/uL Neutrophils # 13.3 H (1.3-7.7) k/uL Lymphocytes # 0.5 L (1.0-4.8) k/uL ABG pH 7.15 L* (7.35-7.45) ABG pCO2 73 H* (35-45) mmHg ABG pO2 82 L (83-108) mmHg ABG HCO3 26 H (21-25) mmol/L ABG Total CO2 28 H (19-24) mmol/L ABG O2 Saturation (94-97) % Potassium (3.5-5.1) mmol/L BUN (7-17) mg/dL Creatinine (0.52-1.04) mg/dL Glucose (74-99) mg/dL POC Glucose (mg/dL) 117 H (75-99) mg/dL AST (14-36) U/L ALT (4-34) U/L Total Protein (6.3-8.2) g/dL Albumin (3.5-5.0) g/dL Crossmatch 06/15/20 06/15/20 06/15/20 Range/Units 04:36 06:30 06:43 WBC (3.8-10.6) k/uL RBC (3.80-5.40) m/uL Hgb (11.4-16.0) gm/dL Hct (34.0-46.0) % MCV (80.0-100.0) fL MCHC (31.0-37.0) g/dL RDW (11.5-15.5) % Plt Count (150-450) k/uL Neutrophils # (1.3-7.7) k/uL Lymphocytes # (1.0-4.8) k/uL ABG pH 7.21 L (7.35-7.45) ABG pCO2 60 H (35-45) mmHg ABG pO2 60 L (83-108) mmHg ABG HCO3 (21-25) mmol/L ABG Total CO2 26 H (19-24) mmol/L ABG O2 Saturation 88.6 L (94-97) % Potassium 5.3 H (3.5-5.1) mmol/L BUN 102 H* (7-17) mg/dL Creatinine 4.45 H (0.52-1.04) mg/dL Glucose 114 H (74-99) mg/dL POC Glucose (mg/dL) (75-99) mg/dL AST 128 H (14-36) U/L ALT 89 H (4-34) U/L Total Protein 6.0 L (6.3-8.2) g/dL Albumin 2.8 L (3.5-5.0) g/dL Crossmatch See Detail - Imaging and Cardiology Chest x-ray: report reviewed, image reviewed Assessment and Plan Assessment: 1. Left pleural effusion, S/P aborted thoracentesis, placement of Thoravent, cytology negative, fluid transudative in nature, status post left thoracostomy tube placement 2. Acute hypercapneic respiratory failure requiring mechanical ventilation, now on BiPap 3. Acute on chronic diastolic heart failure 4. Chronic atrial fibrillation on no anticoagulation due to history of bleeding 5. Chronic hypoxic respiratory failure, on home oxygen 6. Morbid obesity 7. History of hypertension 8. Stage IV chronic kidney disease 9. Chronic anemia 10. Obstructive sleep apnea with home Cpap use 11. Previous history of tobacco dependence 12. Medical debility, resides in [facility] 13. Osteoarthritis Plan: 1. Continue left pleural chest tube to water seal. We will continue to monitor drainage 2. Wean O2 as tolerated. Encourage incentive spirometry use. Bronchodilators, steroids, antibiotics per pulmonology 3. Increase activity as tolerated 4. Will monitor daily x-rays 5. Management of other comorbidities per primary care service, other consultants 6. More recommendations to follow
[2020-06-15] MEDS: PIPERACILLIN-TAZOBACTAM 3.375 GM in SODIUM CHLORIDE 0.9% 100 ML IVPB SCH ×2 (09:49→21:27)
[2020-06-15 12:01] LABS: Glucose,Whole Blood 104 mg/dL (75-99)
--- NOTE | 2020-06-15 12:12 | PN ---
PROGRESS NOTE Cassie is a 70-year-old lady with morbid obesity, chronic renal failure, hypertension, anemia, persistent atrial fibrillation, severe pulmonary hypertension who is admitted to the hospital with respiratory failure. We were involved in her case because of persistent atrial fibrillation. She has been dialyzed, as she has not been responding to a Lasix drip. Remains in atrial fibrillation with somewhat of a poorly controlled ventricular rate. She is not able to take the oral amiodarone secondary to confusion. She is not on an anticoagulant because of GI bleed and anemia. This morning, she is lying on the bed, does not respond to any questions. She has a large left pleural effusion and had Thora-Vent placed. She is currently on BiPAP. EXAM: Heart rate is around 105 beats per minute, blood pressure is 1116/63, respiratory rate is 18. Chest exam reveals diminished air entry. Heart exam reveals first and second heart sounds, irregular rhythm. Abdomen appears distended. Exam of extremities reveals edema. LABS: Show a hemoglobin of 6.8, potassium is 5.3, BUN is 102, creatinine is 4.45. ASSESSMENT: Persistent atrial fibrillation with poorly controlled ventricular rate. PLAN: I am going to start her on IV Lopressor until she is able to take oral medications. MMODL / IJN: [id number] /
[2020-06-15] MEDS: METOPROLOL TARTRATE 5 MG/5 ML VIAL IVP SCH ×2 (12:19→21:48)
[2020-06-15] MEDS: TRIAMCINOLONE 0.1% CREAM 80 GM TUBE TOPICAL SCH ×2 (12:28→21:28)
[2020-06-15] MEDS: LEVOTHYROXINE IVP 100 MCG/5 ML VIAL IV SCH (12:36)
[2020-06-15] MEDS: ASPIRIN 81 MG PO SCH (12:46)
[2020-06-15] MEDS: FOLIC ACID 1 MG TAB PO SCH (12:46)
[2020-06-15] MEDS: SODIUM CHLORIDE 0.9% 1,000 ML IV SCH (15:19)
--- NOTE | 2020-06-15 15:32 | PN ---
PROGRESS NOTE Patient is seen for followup for acute kidney injury and volume overload. She is currently seen on dialysis. Patient is tolerating her treatment fairly well. Her blood pressure is slightly on the lower side. She is maintained on Levophed. Goal UF is about 2 to 2.5 liters. Blood pressure this morning 124/65, heart rate of 86 per minute. Patient is afebrile. EXAMINATION OF THE HEART: S1 and S2. EXAMINATION OF LUNGS: Bilateral breath sounds are heard. ABDOMEN: Soft. Examination of lower extremities shows edema 2 to 3+ bilaterally. MEAL ATTENDANT exam cannot be performed. Labs show sodium of 141, potassium 5.3, BUN 102, serum creatinine 4.45, hemoglobin of 6.8 g/dL. ASSESSMENT: 1. Acute kidney injury, cardiorenal syndrome versus acute tubular necrosis, with progressive deterioration of renal function, currently started on dialysis mainly for volume overload as well. The patient will be dialyzed again tomorrow. We are planning to remove 2 to 2.5 liters today. 2. Hyperkalemia associated with progressive renal failure. Expect improvement post dialysis. 3. Volume overload. The patient was maintained on Lasix drip, which is now discontinued. I will add IV push Lasix and we will maintain daily dialysis for now. 4. Anemia with hemoglobin down to 6.8 g/dL today. No active bleeding noted. 5. Status post cardiac arrest. 6. Pneumothorax with left-sided chest tube. 7. Chronic kidney disease, stage 4, secondary to diabetic kidney disease. Baseline creatinine about 2.7 to 3 mg/dL. 8. Diastolic heart failure. PLAN: Repeat hemodialysis in a.m. Continue with Aranesp. Try to wean off Levophed. Continue with phosphate binders when patient is eating. MMODL / IJN: [id number] /
--- NOTE | 2020-06-15 15:44 | P.PN ---
Subjective 70-year-old patient was chronic stable medical conditions include CHF EF 55 and 55%, morbid obesity, chronic kidney disease stage IV secondary to ne phrosclerosis, renal bone disease, anemia of chronic kidney disease, persistent atrial fibrillation, fatty liver, COPD, primary osteoarthritis, obstructive sleep apnea, chronic gout, on home oxygen, chronic medical debility at her baseline uses a lift a wheelchair. Patient is a resident at [facility]. Patient presents with increasing swelling about a week. Increase in shortness of breath. Appetite is okay. Bowel movements are okay. No fever no chills. Started on IV Lasix. Admitted with CHF exacerbation. Put on IV Lasix. On June 04 -was taken to for thoracentesis and it was a bit difficult by IR. Patient went into PEA cardiac arrest. intubated. Hypotensive. Moved to ICU. Thora-vent was placed. About 850 mL of pus-bloody fluid was obtained. [id number]. On the ventilator. Telemetry shows sinus rhythm. Left chest tube to suction. On IV levo fed and propofol. Tube feeding. Granddaughter at the bedside. 06/08/2020 Patient is currently mechanical ventilator and is being monitored in the ICU. Sedated. low dose levophed. Chest x-ray showed cardiomegaly with central vascular congestion and small to moderate sized bilateral pleural fluid collections with the left sided pleural drainage catheter. Bronchial fluid cultures negative so far. Laboratory data showed WBC 8.2, hemoglobin 7.0 and platelets 87 BUN 84 and creatinine 3.29 Albumin 2.2 06/09/2020 Patient remains on ventilator and is currently sedated. Patient is also on Levophed drip. Chest x-ray showed suspect some improvement in patient's volume status. There may be basilar effusions. Atelectasis, difficult to exclude pneumonia. Patient does have chest tube with minimal drainage. Laboratory data showed WBC 11.8, hemoglobin 7.9 and platelets 87 BUN 88 and creatinine 3.06 Pulmonary and nephrology is on board. 06/10/2020 Patient is currently extubated and is saturating well on oxygen via nasal cannula. Patient is otherwise awake alert and trying to communicate. Chest x-ray this morning showed improving aeration of the left especially in the upper and midlung after left-sided chest tube placement. Focal opacity remains at the left base as well as trace right effusion. 2D echocardiogram showed ejection fraction 40 to 45% there is severe tricuspid regurgitation present. Severe pulmonary hypertension. Left ventricle systolic pressure is 84.96 mmHg. Laboratory data showed WBC 13.2, hemoglobin 7.3 and platelets 83 BUN 100 and creatinine 2.97 06/11/2020 Patient is currently remained ICU. Awake alert but not communicating. Patient is off the ventilator. Currently on oxygen via nasal cannula. Patient is status post chest tube placement. Repeat chest x-ray showed lung seems expanded but left lower lobe remains consolidated. Patient is still on Levophed drip at low-dose. Patient went into A. fib with RVR and was started on amiodarone drip. Cardiology was consulted. Creatinine level is elevated. Nephrology is following. 06/12/2020 Patient is currently in MICU. Awake alert and oriented but communicating very slowly. Able to follow simple commands. Continued on Lasix drip. Patient is also reporting Levophed drip. Amiodarone drip due to atrial fibrillation with RVR. Chest x-ray showed persistent left-sided volume loss with worsening left lung opacity despite chest tube in place. Suggests worsening left-sided pleural effusion and associated left lung atelectasis and/or infiltrate. Patient is being continued on antibiotics in the form of Zosyn. Cardiology, pulmonary and nephrology is on board. Laboratory data showed WBC 23.2, hemoglobin 7.3, platelets 131 BUN 96 and creatinine 3.56 Urinalysis is negative for infection. Patient has been afebrile. 06/13/2020 Patient is currently remains in MICU. More awake and oriented and able to talk simple words. Denied any chest pain. No worsening shortness of breath. patient is currently on oxygen via nasal cannula. Patient was BiPAP in the morning. Chest x-ray showed cardiomegaly and interstitial prominence correlate for CHF with mild pulmonary vascular congestion. Improving aeration in the left with decreased but persistent moderate left pleural effusion with adjacent atelectasis and/or consolidation. Chest tube remains in place. Increasing small right effusion. remains on levophed. 06/14/2020 Patient says she is feeling better. Patient can use to have left-sided chest tube to wall suction there is a concern about chylothorax patient remains on IV Lasix drip, patient is also on IV hydrocortisone every 6 hours. Patient does have sick euthyroid syndrome TSH need to be repeated again. 06/15/2020 Patient is still has a chest tube which is draining. Patient went into hypercapnic respiratory failure yesterday for which patient was started on BiPAP patient was initiated on hemodialysis and is undergoing hemodialysis today Constitutional: Denied any fatigue denied any fever. Cardio vascular: denied any chest pain, palpitations Gastrointestinal denied any nausea vomiting Pulmonary: Denied any shortness of breath cough Neurologic denied any new focal deficits All inpatient medications were reviewed and appropriate changes in these medications as dictated in the interval history and assessment and plan. Objective - Vital Signs Vital signs: Vital Signs Temp 97.7 F 06/15/20 12:00 Pulse 107 H 06/15/20 15:00 Resp 17 06/15/20 15:00 BP 119/52 06/15/20 12:00 Pulse Ox 97 06/15/20 15:00 Intake & Output 06/14/20 06/15/20 06/15/20 18:59 06:59 18:59 Intake Total 617.058 658.450 562.216 Output Total 612 964 8012 Balance 407.058 479.450 -2277.784 Weight 211.05 kg 209.469 kg Intake: IV 280 253 197 0.9 pressure bag 30 33 27 Piperacillin-Tazobactam 3 50 .375 gm In Sodium Chloride 0.9% 100 ml @ 25 mls/hr IVPB Q12HR [facility] Rx #:[id number] Sodium Chloride 0.9% 1, 200 220 120 000 ml @ 20 mls/hr IV . Q24H [facility] Rx#:[id number] Intake, IV Titration 97.058 405.450 55.216 Amount Furosemide 100 mg In 89.5 Sodium Chloride 0.9% 90 ml @ 10 MG/HR 10 mls/hr IV .Q10H [facility] Rx#: [id number] Furosemide 100 mg In 200 Sodium Chloride 0.9% 90 ml @ 15 MG/HR 15 mls/hr IV .Q6H40M [facility] Rx#: [id number] Norepinephrine 32 mg In 7.558 205.450 30.216 Sodium Chloride 0.9% 218 ml @ 0.05 MCG/KG/MIN 4. 784 mls/hr IV .Q24H [facility] Rx#:[id number] Piperacillin-Tazobactam 3 25 .375 gm In Sodium Chloride 0.9% 100 ml @ 25 mls/hr IVPB Q12HR [facility] Rx #:[id number] Oral 240 Blood Product 310 Rc As-1 Unit 310 [id number] Output: Chest Tube Drainage 40 0 270 Chest Tube Left Posterior 40 0 270 Chest Urine 170 179 70 Hemodialysis 2500 Other: Voiding Method Indwelling Catheter Indwelling Catheter Indwelling Catheter # Bowel Movements 1 ABP, PAP, CO, CI - Last Documented Arterial Blood Pressure 119/53 - Exam PHYSICAL EXAMINATION: GENERAL: The patient is drowsy arousable on BiPAP, not in any acute distress. Morbidly obese him on BiPAP HEENT: Pupils are round and equally reacting to light. EOMI. No scleral icterus. No conjunctival pallor. Normocephalic, atraumatic. No pharyngeal erythema. No thyromegaly. CARDIOVASCULAR: S1 and S2 present. No murmurs, rubs, or gallops. PULMONARY: Chest is clear to auscultation, no wheezing or crackles. ABDOMEN: Soft, nontender, nondistended, normoactive bowel sounds. No palpable organomegaly. MUSCULOSKELETAL: No joint swelling or deformity. EXTREMITIES: No cyanosis, clubbing, does have pedal edema NEUROLOGICAL: Gross neurological examination did not reveal any focal deficits. SKIN: No rashes. - Labs CBC & Chem 7: 06/15/20 04:36 06/15/20 04:36 Labs: Abnormal Lab Results - Last 24 Hours (Table) 06/14/20 06/14/20 06/14/20 Range/Units 18:19 22:06 22:17 WBC (3.8-10.6) k/uL RBC (3.80-5.40) m/uL Hgb (11.4-16.0) gm/dL Hct (34.0-46.0) % MCV (80.0-100.0) fL MCHC (31.0-37.0) g/dL RDW (11.5-15.5) % Plt Count (150-450) k/uL Neutrophils # (1.3-7.7) k/uL Lymphocytes # (1.0-4.8) k/uL ABG pH 7.15 L* (7.35-7.45) ABG pCO2 73 H* (35-45) mmHg ABG pO2 82 L (83-108) mmHg ABG HCO3 26 H (21-25) mmol/L ABG Total CO2 28 H (19-24) mmol/L ABG O2 Saturation (94-97) % Potassium (3.5-5.1) mmol/L BUN (7-17) mg/dL Creatinine (0.52-1.04) mg/dL Glucose (74-99) mg/dL POC Glucose (mg/dL) 112 H 109 H (75-99) mg/dL AST (14-36) U/L ALT (4-34) U/L Total Protein (6.3-8.2) g/dL Albumin (3.5-5.0) g/dL Crossmatch 06/14/20 06/15/20 06/15/20 Range/Units 23:35 04:36 04:36 WBC 14.4 H (3.8-10.6) k/uL RBC 2.47 L (3.80-5.40) m/uL Hgb 6.8 L* (11.4-16.0) gm/dL Hct 24.9 L (34.0-46.0) % MCV 100.8 H (80.0-100.0) fL MCHC 27.1 L (31.0-37.0) g/dL RDW 18.7 H (11.5-15.5) % Plt Count 81 L (150-450) k/uL Neutrophils # 13.3 H (1.3-7.7) k/uL Lymphocytes # 0.5 L (1.0-4.8) k/uL ABG pH (7.35-7.45) ABG pCO2 (35-45) mmHg ABG pO2 (83-108) mmHg ABG HCO3 (21-25) mmol/L ABG Total CO2 (19-24) mmol/L ABG O2 Saturation (94-97) % Potassium 5.3 H (3.5-5.1) mmol/L BUN 102 H* (7-17) mg/dL Creatinine 4.45 H (0.52-1.04) mg/dL Glucose 114 H (74-99) mg/dL POC Glucose (mg/dL) 117 H (75-99) mg/dL AST 128 H (14-36) U/L ALT 89 H (4-34) U/L Total Protein 6.0 L (6.3-8.2) g/dL Albumin 2.8 L (3.5-5.0) g/dL Crossmatch 06/15/20 06/15/20 06/15/20 Range/Units 06:30 06:43 11:59 WBC (3.8-10.6) k/uL RBC (3.80-5.40) m/uL Hgb (11.4-16.0) gm/dL Hct (34.0-46.0) % MCV (80.0-100.0) fL MCHC (31.0-37.0) g/dL RDW (11.5-15.5) % Plt Count (150-450) k/uL Neutrophils # (1.3-7.7) k/uL Lymphocytes # (1.0-4.8) k/uL ABG pH 7.21 L (7.35-7.45) ABG pCO2 60 H (35-45) mmHg ABG pO2 60 L (83-108) mmHg ABG HCO3 (21-25) mmol/L ABG Total CO2 26 H (19-24) mmol/L ABG O2 Saturation 88.6 L (94-97) % Potassium (3.5-5.1) mmol/L BUN (7-17) mg/dL Creatinine (0.52-1.04) mg/dL Glucose (74-99) mg/dL POC Glucose (mg/dL) 104 H (75-99) mg/dL AST (14-36) U/L ALT (4-34) U/L Total Protein (6.3-8.2) g/dL Albumin (3.5-5.0) g/dL Crossmatch See Detail Assessment and Plan Plan: Assessment and Plan Assessment: -s/p Cardiac arrest with PEA, patient was intubated and was extubated on the June 09, patient had complete opacification of the left lung and had pleural tap and presently at bedtime 2 the fluid was suspicious for chylothorax and the fluid was transudative nature -Acute hypoxic, hypercapnic respiratory failure-requiring ventilator, patient is off ventilatory support as mentioned above but the patient became hypercapnic and endocrine the CPAP machine today -Left-sided pleural effusion and consolidation and a possible pneumonia and patient is on IV antibiotics in form of Zosyn Status post chest tube placement -New onset A. fib with RVR. -Hypotensive shock requiring pressor support. possibe Septic shock due to Pneumonia -Acute on Chronic congestive heart failure from diastolic dysfunction - Severe pulmonary hypertension and severe TR. - Acute kidney injury secondary to ATN secondary to cardiac arrest/hemodynamic instability. -Chronic kidney disease stage IV secondary to nephrosclerosis, patient will undergo catheter placement for possible dialysis -Morbid obesity BMI 75.2 -Chronic kidney disease renal bone disease -Anemia of chronic kidney disease, patient the hemoglobin did drop because of frequent blood draws and patient will receive 1 unit of PRBC transfusion today -Persistent atrial fibrillation, rate controlled Nonalcoholic fatty liver disease -COPD in an ex-smoker -Primary osteoarthritis -Obstructive sleep apnea -Chronic gout -Chronic hypoxic respiratory failure from COPD -Chronic medical debility and a baseline patient does use a lift to a wheelchair -Thoracentesis patient has a left-sided chest tube
[2020-06-15] MEDS: CHOLECALCIFEROL 1,000 UNIT TAB PO SCH (17:58)
[2020-06-15 18:04] LABS: Glucose,Whole Blood 107 mg/dL (75-99)
[2020-06-15 18:16] LABS: Anisocytosis Slight; Basophils % (A) 0 %; Eosinophils % (A) 0 %; HCT 25.5 % (34.0-46.0); HGB 7.4 gm/dL (11.4-16.0); Hypochromasia Marked; Lymphocytes # (A) 0.4 k/uL (1.0-4.8); Lymphocytes % (A) 3 %; MCH 27.5 pg (25.0-35.0); MCHC 28.9 g/dL (31.0-37.0); Macrocytosis Slight; Monocytes # (A) 0.7 k/uL (0-1.0); Monocytes % (A) 6 %; Neutrophils % (A) 90 %; Poikilocytosis Moderate; RBC 2.69 m/uL (3.80-5.40); RDW 19.8 % (11.5-15.5); WBC 13.3 k/uL (3.8-10.6)
[2020-06-15 18:18] LABS: Platelet Count 80 k/uL (150-450)
[2020-06-15] MEDS: ATORVASTATIN 40 MG TAB PO SCH (20:57)
[2020-06-15 23:47] LABS: Glucose,Whole Blood 102 mg/dL (75-99)
[2020-06-16] MEDS: INSULIN ASPART (NovoLOG) 100 UNIT/ML VIAL SQ SCH ×4 (00:42→17:59)
[2020-06-16] MEDS: HYDROCORTISONE SUCCINATE 100 MG/2 ML VIAL IV SCH ×4 (00:48→17:58)
[2020-06-16 05:20] LABS: Albumin 2.8 g/dL (3.5-5.0); Calcium 8.5 mg/dL (8.4-10.2); Potassium 4.9 mmol/L (3.5-5.1); Total Bilirubin 1.2 mg/dL (0.2-1.3); Total Protein 5.9 g/dL (6.3-8.2)
[2020-06-16 05:28] LABS: Anisocytosis Slight; Basophils % (A) 0 %; Eosinophils % (A) 0 %; HCT 24.3 % (34.0-46.0); Hypochromasia Marked; Lymphocytes # (A) 0.4 k/uL (1.0-4.8); Lymphocytes % (A) 4 %; MCH 27.2 pg (25.0-35.0); MCHC 28.7 g/dL (31.0-37.0); MCV 94.7 fL (80.0-100.0); Macrocytosis Slight; Mean Platelet Volume 11.2; Monocytes # (A) 0.5 k/uL (0-1.0); Monocytes % (A) 5 %; Neutrophils # (A) 9.1 k/uL (1.3-7.7); Neutrophils % (A) 90 %; Poikilocytosis Moderate; RBC 2.57 m/uL (3.80-5.40); RDW 19.9 % (11.5-15.5); WBC 10.1 k/uL (3.8-10.6)
[2020-06-16 05:31] LABS: Platelet Count 69 k/uL (150-450)
--- NOTE | 2020-06-16 06:57 | XR ---
EXAMINATION TYPE: XR chest 1V portable DATE OF EXAM: 06/16/2020 CLINICAL HISTORY: Difficulty breathing progress study. TECHNIQUE: Single AP portable upright view of the chest is obtained. COMPARISON: Chest x-ray from one day earlier And older studies. FINDINGS: Stable large bore right internal jugular dialysis catheter. Stable left internal jugular c entral venous catheter. Stable left basilar chest tube. Cardiomegaly with atherosclerotic thoracic aorta. Persistent left greater than right bibasilar opacit ies. Left lateral opacity likely improved by change in technique from supine to upright. No pneumotho rax noted. IMPRESSION: Accounting for technical differences findings likely stable. Persistent cardiomegaly with small bilateral pleural effusions and left greater than right bibasilar acute atelectasis and/or inf iltrate are all redemonstrated.
[2020-06-16] MEDS: IPRATROPIUM-ALBUTEROL 3 ML NEB INHALATION SCH ×4 (07:14→19:55)
[2020-06-16] MEDS: MIDODRINE 5 MG TAB PO SCH ×3 (08:03→16:48)
[2020-06-16] MEDS: allopurinoL 100 MG TAB PO SCH (08:06)
[2020-06-16] MEDS: CALCIUM ACETATE 667 MG TAB PO SCH (08:06)
[2020-06-16] MEDS: NON FORMULARY DRUG (Linaclotide [Linzess] 145 MCG) PO SCH (08:06)
[2020-06-16] MEDS: AMIODARONE 200 MG TAB PO SCH ×2 (08:06→20:09)
[2020-06-16] MEDS: PIPERACILLIN-TAZOBACTAM 3.375 GM in SODIUM CHLORIDE 0.9% 100 ML IVPB SCH ×2 (08:23→20:20)
[2020-06-16] MEDS: LEVOTHYROXINE IVP 100 MCG/5 ML VIAL IV SCH (08:23)
[2020-06-16] MEDS: TRIAMCINOLONE 0.1% CREAM 80 GM TUBE TOPICAL SCH ×2 (08:30→20:21)
[2020-06-16] MEDS: SODIUM CHLORIDE 0.9% 1,000 ML IV SCH (08:31)
[2020-06-16 08:55] LABS: ABG PCO2 73 mmHg (35-45)
--- NOTE | 2020-06-16 09:05 | P.PN ---
Subjective Progress Note Date: 06/16/20 Principal diagnosis: Acute left lung opacification 70-year-old female patient, [facility] who was referred back to the emergency department because of worsening shortness of breath and hypoxemia. The patient had significant amount of weight gain in the order of 11 pounds over this past week. She also reported worsening lower extremity edema. She was unable to ambulate. She is currently bedbound. She is morbidly obese with a BMI of 34.2. No fever no chills. No aspiration. She has a mild cough. No chest pain. The chest x-rays showing complete opacification of the left lung without any significant shift of the trachea or volume loss. The left mainstem bronchus is currently off. White cell count 9.3 with hemoglobin of 7.9. Coagulation profile is within normal. 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 Serum bicarb is 29 with a sodium of 138. The liver functions is on essentially within normal limits. Albumin is at 3.3 with a total protein of 6.9. ProBNP level was 11,300. Currently, the patient is on 2 L of oxygen by nasal cannula. Pulse ox and order of 97%. Long with stage IV kidney disease secondary to do hypertensive nephrosclerosis. She also has chronic anemia, chronic proximal atrial fibrillation, COPD, osteoarthritis, obstructive sleep apnea, gout and she Zyvox and dependent and she has home O2. She is medically debilitated and she is a left and a walker. She is a resident of a [facility]. During her most recent hospitalization, the anemia was further worked up by EGD EGD showed mild gastritis. There was mild duodenitis. There was a small hiatal hernia. The patient is seen today 06/03/2020 in follow-up on the selective care unit. She is awake and alert in no acute distress. Currently resting flat in bed. Maintaining O2 saturation in the mid 90s on 2 L/m per nasal cannula. She's been afebrile. Was unable to tolerate a computed tomography scan of the chest yesterday. Sodium 138. Potassium 6.0. Creatinine 3.54. She remains on Lasix 80 mg IV every 12 hours. On 06/04/2020 patient seen in follow-up on selective care unit. She is resting comfortably in bed. She appears to be in no acute distress, she is on 2 L of oxygen her pulse ox is 92-100%, hemodynamically she stable, no couplets or chest pain, she's been afebrile, yesterday she had unsuccessful attempt at ultrasound- guided left thoracentesis, and patient was experiencing a lot of discomfort when the staff was trying to position her for the thoracentesis, and the procedure was aborted. Electrolytes are within normal limits, BUN was 96, creatinine was 3.74. She remains on diuretics 40 mg every 12 hours, her lower extremity edema slightly improved. Lung sounds reveal absent breath sounds on the left, and clear diminished breath sounds on the right, no cough or congestion. No altered mentation. Follow-up chest x-ray today shows stable findings complete opacified left hemithorax without mediastinal shift. On 06/14/2020 patient seen in follow-up in the intensive care unit, she is awake and alert, she is oriented 3, no evidence of distress, she is currently on 5 L of oxygen and the pulse ox of 98%, she has been afebrile, respirations are nonlabored, lung sounds are clear, diminished at the bases, left-sided chest tube remains in place to wall suction, and there has been 150 mL of serosanguineous output in the last 24 hours. No evidence of air leak. Today's chest x-ray shows no evidence of a sizable pneumothorax. Pleural fluid cultures have shown no growth, blood culture was negative. IV fluids include Lasix at 10 mg per hour, Levaquin fed is at 22 mics per minute, and 0.9 normal saline at a rate of 20 ML per hour, patient has been in positive fluid balance over the last 24 hours of 726 ML. Still has quite significant edema involving upper and lower extremities. Her cortisol level was 20, and we will add IV hydrocortisone 50 mg every 6 hours. TSH was 5.72, and patient will be started on thyroid hormone replacement. Patient remains on empiric antibiotics in the form of Zosyn. She remains in atrial fibrillation/atrial flutter, with the controlled rates. Today's labs have been reviewed, renal profile slightly bumped up, with BUN of 102, and creatinine of 3.87,, Celexa lites within normal limits, white blood cell count is trending down, down to 15.3, hemoglobin is 7.2 On 06/15/2020 patient seen in follow-up in the intensive care unit, she appears to be more lethargic on today's exam although she opens eyes to verbal stimuli and nods her head appropriately to yes or no questions. Overnight she was placed on BiPAP support, with pressures of 12 and 5 and 40%. This morning his blood gases show pO2 of 82, P CO2 of 73, and pH of 7.15. BiPAP settings were adjusted, and current pressures are 14 over 4 and FiO2 of 35%. Repeat blood gases showed pO2 of 60, pCO2 of 60, and pH of 7.212. Current drips include 0.9 normal saline at a rate of 20, Lasix drip at 15 mg per hour, however patient has not produced much urine, and at this point she is practically and uric. We will head is currently infusing at a rate of 14 mics per minute. Renal function continues to worsen, with B1 up to 102, and creatinine of 4.45. Patient had a right subclavian hemodialysis catheter placed yesterday by vascular surgery, with plans of initiating hemodialysis today. Labs have been reviewed, showing white blood cell count of 14.4, hemoglobin of 6.8, platelet count of 81, potassium is 5.3, the rest of the electrolytes are within normal limits, he is up to 128, ALT is 89, alkaline phosphatase is 118. Microbiology has been reviewed, showing no growth, blood cultures or pleural fluid cultures. Cytology the left pleural fluid Was negative for cells diagnostic of neoplasm. On 06/16/2020 patient seen in follow-up in the intensive care unit, she is lethargic today, she barely opens eyes to repeated verbal and tactile stimulation, she is not following command, she has remained on BiPAP support for last 24 hours, on pretty much on a continuous basis, her BiPAP settings are 14 over 4, and FiO2 of 30%. Yesterday patient was started on hemodialysis and 25 L of fluid was removed, today she is having hemodialysis treatment again with the goal of removing 3 L. Hemodynamically has improved, and she is on norepinephrine, however we were able to significantly wean down the dose of norepinephrine and is currently running at 2 mics per minute, 0.9 normal saline is running at 20 ML per hour, patient has been nothing by mouth related to being BiPAP dependent, and being lethargic. Left sided chest tube remains in place we place a to waterseal 24 hours ago, there is no evidence of air leak, today's chest x-ray has been reviewed showing persistent cardiomegaly with small bilateral pleural effusions and left greater than right basilar acute atelectasis and/or infiltrate. These labs have been reviewed, showing white blood cell, 10.1, hemoglobin is 7.0, electrolytes were within normal limits, renal profile slightly improved, BUN down to 88, and creatinine of 4.25. AST has trended up, up to 191, ALT is 137, total bilirubin is 1.2, within normal limits, patient has been afebrile, is still quite edematous, in her lower extr emities, and upper extremities. The catheter is in, and she is only producing 5-10 ML per hour. Her tota net fluid balance is -2 L over the last 24 hours. Renal fluid and blood cultures have shown no growth. Cytology of the left pleural fluid was negative for cells diagnostic of neoplasm Objective - Vital Signs Vital signs: Vital Signs Temp 96.9 F L 06/16/20 04:00 Pulse 69 06/16/20 07:24 Resp 18 06/16/20 07:00 BP 90/41 06/16/20 07:00 Pulse Ox 98 06/16/20 07:00 Intake & Output 06/15/20 06/16/20 06/16/20 18:59 06:59 18:59 Intake Total 677.825 363.854 23 Output Total 2860 217 15 Balance -2182.175 146.854 8 Weight 206.43 kg Intake: IV 266 336 23 0.9 pressure bag 36 36 3 Piperacillin-Tazobactam 3 50 100 .375 gm In Sodium Chloride 0.9% 100 ml @ 25 mls/hr IVPB Q12HR [facility] Rx #:[id number] Sodium Chloride 0.9% 1, 180 200 20 000 ml @ 20 mls/hr IV . Q24H [facility] Rx#:[id number] Intake, IV Titration 101.825 27.854 0 Amount Norepinephrine 32 mg In 76.825 27.854 0 Sodium Chloride 0.9% 218 ml @ 0.05 MCG/KG/MIN 4. 784 mls/hr IV .Q24H [facility] Rx#:[id number] Piperacillin-Tazobactam 3 25 .375 gm In Sodium Chloride 0.9% 100 ml @ 25 mls/hr IVPB Q12HR [facility] Rx #:[id number] Blood Product 310 Rc As-1 Unit 310 [id number] Output: Chest Tube Drainage 270 110 10 Chest Tube Left Posterior 270 110 10 Chest Urine 90 107 5 Hemodialysis 2500 Other: Voiding Method Indwelling Catheter Indwelling Catheter # Bowel Movements 1 ABP, PAP, CO, CI - Last Documented Arterial Blood Pressure 102/51 - Exam GENERAL EXAM: Lethargic but arousable to verbal stimuli very, supra-morbidly obese 70-year-old -[place] female on BiPAP support with pressures of 14 over 4, and FiO2 of 35% 91% comfortable in no apparent distress. Wearing BiPAP support intermittently, and bedtime HEAD: Normocephalic/atraumatic. EYES: Normal reaction of pupils, equal size. Conjunctiva pink, sclera white. NOSE: Clear with pink turbinates. THROAT: No erythema or exudates. NECK: No masses, no JVD, no thyroid enlargement, no adenopathy. CHEST: No chest wall deformity. Symmetrical expansion. Left chest tube is in place, to waterseal, with no evidence of air leak, with thin serosanguineous output in the Pleur-evac. Right subclavian temporary hemodialysis catheter in place inserted on 06/14/2020 LUNGS: Equal air entry with no crackles, wheeze, rhonchi or dullness. CVS: Regular rate and rhythm, normal S1 and S2, no gallops, no murmurs, no rubs ABDOMEN: Soft, nontender. No hepatosplenomegaly, normal bowel sounds, no guarding or rigidity. EXTREMITIES: No clubbing, 2+ lower extremity edema, involving thighs, lower legs, pedal edema, ankle edema, and some mild edema involving upper extremities, no cyanosis, 2+ pulses and upper and lower extremities. MUSCULOSKELETAL: Muscle strength and tone normal. SPINE: No scoliosis or deformity SKIN: No rashes CENTRAL NERVOUS SYSTEM: Lethargic, on BiPAP, but his eyes briefly, does not maintain eye contact, does not follow command. No focal deficits, tone is normal in all 4 extremities. - Labs CBC & Chem 7: 06/16/20 04:15 06/16/20 04:15 Labs: Abnormal Lab Results - Last 24 Hours (Table) 06/15/20 06/15/20 06/15/20 Range/Units 06:30 11:59 18:03 WBC (3.8-10.6) k/uL RBC (3.80-5.40) m/uL Hgb (11.4-16.0) gm/dL Hct (34.0-46.0) % MCHC (31.0-37.0) g/dL RDW (11.5-15.5) % Plt Count (150-450) k/uL Neutrophils # (1.3-7.7) k/uL Lymphocytes # (1.0-4.8) k/uL BUN (7-17) mg/dL Creatinine (0.52-1.04) mg/dL POC Glucose (mg/dL) 104 H 107 H (75-99) mg/dL AST (14-36) U/L ALT (4-34) U/L Total Protein (6.3-8.2) g/dL Albumin (3.5-5.0) g/dL Crossmatch See Detail 06/15/20 06/15/20 06/16/20 Range/Units 18:04 23:45 04:15 WBC 13.3 H (3.8-10.6) k/uL RBC 2.69 L (3.80-5.40) m/uL Hgb 7.4 L (11.4-16.0) gm/dL Hct 25.5 L (34.0-46.0) % MCHC 28.9 L (31.0-37.0) g/dL RDW 19.8 H (11.5-15.5) % Plt Count 80 L (150-450) k/uL Neutrophils # 12.0 H (1.3-7.7) k/uL Lymphocytes # 0.4 L (1.0-4.8) k/uL BUN 88 H (7-17) mg/dL Creatinine 4.25 H (0.52-1.04) mg/dL POC Glucose (mg/dL) 102 H (75-99) mg/dL AST 191 H (14-36) U/L ALT 137 H (4-34) U/L Total Protein 5.9 L (6.3-8.2) g/dL Albumin 2.8 L (3.5-5.0) g/dL Crossmatch 08/19/20 Range/Units 04:15 WBC (3.8-10.6) k/uL RBC 2.57 L (3.80-5.40) m/uL Hgb 7.0 L (11.4-16.0) gm/dL Hct 24.3 L (34.0-46.0) % MCHC 28.7 L (31.0-37.0) g/dL RDW 19.9 H (11.5-15.5) % Plt Count 69 L (150-450) k/uL Neutrophils # 9.1 H (1.3-7.7) k/uL Lymphocytes # 0.4 L (1.0-4.8) k/uL BUN (7-17) mg/dL Creatinine (0.52-1.04) mg/dL POC Glucose (mg/dL) (75-99) mg/dL AST (14-36) U/L ALT (4-34) U/L Total Protein (6.3-8.2) g/dL Albumin (3.5-5.0) g/dL Crossmatch Assessment and Plan Plan: Assessment: #1. Acute on chronic hypoxic respiratory failure, presented complete opacification of the left lung and large left-sided pleural effusion, transudative in nature, the fluid was suspicious for chylothorax at one time, with significantly elevated triglycerides. Today on 06/15/2020 left-sided chest tube remains in place, with minimal output in the last 24 hours, no evidence of air leak, pleural fluid cultures were negative, cytology was negative On 06/16/2020 left-sided chest tube was placed to waterseal for 24 hours, left lung has remained reinflated, chest tube output has been minimal in the last 24 hours, with only 10 mL of serosanguineous fluid in the last 24 hours. Pleural fluid cytology and cultures have been negative #2. Acute left lower lobe pneumonia and possible septic shock on presentation, pleural fluid cultures have shown no growth, remains on empiric antibiotic coverage in the form of Zosyn #3. Morbid obesity with BMI of 74.2 #4. Chronic hypoxic respiratory failure, normally on 2 L per nasal cannula #5. Chronic kidney disease stage IV #6. Chronic gastritis #7. Chronic diastolic congestive heart failure #8. Anemia of chronic kidney disease #9. Nonalcoholic fatty liver disease #10. COPD, ex-smoker, presently inactive #11. Medical debility, patient is bedbound #12. Chronic gout #13. Obstructive sleep apnea syndrome #14. Status post left-sided chest tube thoracostomy on 06/10/2020 for recurrence of left lung opacification #15. Chronic atrial fibrillation/flutter, not any chronic anticoagulation related to chronic anemia and recurrent episodes of bleeding #16. Mild to moderately impaired left ventricle systolic function with severe pulmonary hypertension #17. Secondary adrenal insufficiency related to pneumonia and sepsis #18. Hypothyroidism #19 Acute kidney injury, secondary to the ATN, related to cardiac arrest/hemodynamic instability, creatinine is continually worsening, and patient is in uric, right subclavian hemodialysis was inserted on 06/14/2020 and hemodialysis was initiated #20. Acute metabolic encephalopathy Plan: Patient is having another hemodialysis treatment today with the goal of removal of 3 L of fluid, she still quite edematous, but she is in negative fluid balance for the last 24 hours, left chest tube is in place, chest x-ray shows the left lung has stayed reexpanded, and there has been minimal output in the last 24 hours, we will check with the CT surgery whether the left-sided chest tube can be removed today. We can give the patient a trial on the nasal cannula. Mon itor level of consciousness. Maintain aspiration precautions, possibility we may need to place a Dobbhoff tube or NG tube for nutrition. No fever or chills, patient remains on empiric antibiotics, all cultures have been negative including the left pleural and blood cultures. Overall patient's prognosis is extremely guarded, recommend her primary care to recheck with patient daughter and discuss CODE STATUS and we will continue with supportive care. We'll continue to closely monitor the patient in the ICU. I performed a history & physical examination of the patient and discussed their management with my nurse practitioner, Perri Forrest. I reviewed the nurse practitioner's note and agree with the documented findings and plan of care. Lung sounds are positive for diminished breath sounds at the bases. The findings and the impression was discussed with the patient. I attest to the documentation by the nurse practitioner. Time with Patient: Greater than 30
--- NOTE | 2020-06-16 09:59 | P.PN ---
Subjective Progress Note Date: 06/16/20 Principal diagnosis: Atrial fibrillation This is a 70-year-old female past medical history significant for morbid obesity, chronic kidney disease, hypertension, anemia, previous tobacco dependence, stability residing in an [facility], diastolic heart failure with ejection fraction 40-45% and persistent atrial fibrillation who had presented for increasing swelling and shortness breath or the prior week and 06/03/2020. She had initial ultrasound on 06/10/2020 which showed ejection fraction 40-45% with severe pulmonary hypertension at 89 with severe right ventricular and right atrial enlargement and severe tricuspid regurgitation. Patient initially had left lung white out and was initially intubated. She had chest tube placed for left lung effusion with some improvement. 06/16/2020 Patient underwent dialysis yesterday and is currently undergoing dialysis today with goal of 3 L to be taken off. She remains obtunded and nonresponsive to verbal stimuli. She remains in atrial fibrillation with controlled ventricular response with heart rates in the 70s. She did require some increase in her levophed while on dialysis yesterday however has been maintaining a similar rate of pressors this morning. Hemoglobin somewhat downtrending to 7.0 this morning. She has been lethargic and therefore has not been able to take her medications by mouth. She was placed on BiPAP for increasing CO2. DIAGNOSTICS Laboratory reviewed, BUN is 102, creatinine is 3.87, AST and ALT are mildly elevated at 68 and 51, hemoglobin is 7.2, white blood cell count 15.3. Current cardiac medications include amiodarone 400 mg twice a day, aspirin 81 mg daily, Lipitor 40 mg daily, Cortef 50 mg IV every 6 hours, Lopressor 5 mg IV push every 12 hours, Midrin 10 mg 3 times a day. REVIEW OF SYSTEMS At the time of my exam: Patient extremely lethargic and not answering questions. She is able to say her name however will not answer my direct questions. PHYSICAL EXAMINATION Blood pressure 106/52 on the Levophed heart rate 76 afebrile and maintaining oxygen saturation on BiPAP CONSTITUTIONAL: No apparent distress, ill-appearing, lethargic and not responding to verbal stimuli, morbidly obese HEENT: Head is normocephalic. Pupils are equal, round. Sclerae anicteric. Mucous membranes of the mouth are moist. No carotid bruit. CHEST EXAMINATION: Left worse than right rhonchi and decreased breath sounds at the left base. HEART EXAMINATION: Irregularly irregular rate and rhythm. Normal S1-S2, positive RV heave, positive 3/6 systolic ejection murmur ABDOMEN: Soft, nontender. Positive bowel sounds. EXTREMITIES: 2+ peripheral pulses, no lower extremity edema and no calf tenderness. NEUROLOGIC EXAMINATION: Patient is somnolent, lethargic ASSESSMENT 1. Persistent atrial fibrillation, not anticoagulated because of recurrent episodes of bleeding 2. Morbid obesity 3. Acute on chronic diastolic heart failure with ejection fraction 40-45% from echo 06/10/2020 4. Chronic kidney disease, recently started hemodialysis 5. Anemia 6. History of sleep apnea 7. Severe pulmonary hypertension with RVSP of 85 on echo from 06/10/2020 with severe right ventricle and right atrial enlargement and severe tricuspid regurgitation 8. Possible cardiorenal syndrome with decompensated mainly right heart failure with worsening creatinine PLAN Patient has been unable to take her oral medications. We will continue with Lopressor IV pushes as needed for heart rate control however heart rates of pr edominantly done controlled. Continue with vasopressors. May be a component of cardiorenal syndrome with decompensated right heart failure secondary to severe pulmonary hypertension. Ideally add pulmonary hypertension medications to decrease right ventricular afterload however currently patient unable to take oral medications. Overall, prognosis guarded. Objective - Vital Signs Vital signs: Vital Signs Temp 96.9 F L 06/16/20 04:00 Pulse 69 06/16/20 07:24 Resp 18 06/16/20 07:00 BP 90/41 06/16/20 07:00 Pulse Ox 98 06/16/20 07:00 Intake & Output 06/15/20 06/16/20 06/16/20 18:59 06:59 18:59 Intake Total 677.825 363.854 23 Output Total 2860 217 15 Balance -2182.175 146.854 8 Weight 206.43 kg Intake: IV 266 336 23 0.9 pressure bag 36 36 3 Piperacillin-Tazobactam 3 50 100 .375 gm In Sodium Chloride 0.9% 100 ml @ 25 mls/hr IVPB Q12HR [facility] Rx #:[id number] Sodium Chloride 0.9% 1, 180 200 20 000 ml @ 20 mls/hr IV . Q24H [facility] Rx#:[id number] Intake, IV Titration 101.825 27.854 0 Amount Norepinephrine 32 mg In 76.825 27.854 0 Sodium Chloride 0.9% 218 ml @ 0.05 MCG/KG/MIN 4. 784 mls/hr IV .Q24H [facility] Rx#:[id number] Piperacillin-Tazobactam 3 25 .375 gm In Sodium Chloride 0.9% 100 ml @ 25 mls/hr IVPB Q12HR [facility] Rx #:[id number] Blood Product 310 Rc As-1 Unit 310 [id number] Output: Chest Tube Drainage 270 110 10 Chest Tube Left Posterior 270 110 10 Chest Urine 90 107 5 Hemodialysis 2500 Other: Voiding Method Indwelling Catheter Indwelling Catheter # Bowel Movements 1 ABP, PAP, CO, CI - Last Documented Arterial Blood Pressure 102/51 - Labs CBC & Chem 7: 06/16/20 04:15 06/16/20 04:15 Labs: Abnormal Lab Results - Last 24 Hours (Table) 06/14/20 06/15/20 06/15/20 Range/Units 22:17 06:30 11:59 WBC (3.8-10.6) k/uL RBC (3.80-5.40) m/uL Hgb (11.4-16.0) gm/dL Hct (34.0-46.0) % MCHC (31.0-37.0) g/dL RDW (11.5-15.5) % Plt Count (150-450) k/uL Neutrophils # (1.3-7.7) k/uL Lymphocytes # (1.0-4.8) k/uL ABG pCO2 73 H* (35-45) mmHg BUN (7-17) mg/dL Creatinine (0.52-1.04) mg/dL POC Glucose (mg/dL) 104 H (75-99) mg/dL AST (14-36) U/L ALT (4-34) U/L Total Protein (6.3-8.2) g/dL Albumin (3.5-5.0) g/dL Crossmatch See Detail 06/15/20 06/15/20 06/15/20 Range/Units 18:03 18:04 23:45 WBC 13.3 H (3.8-10.6) k/uL RBC 2.69 L (3.80-5.40) m/uL Hgb 7.4 L (11.4-16.0) gm/dL Hct 25.5 L (34.0-46.0) % MCHC 28.9 L (31.0-37.0) g/dL RDW 19.8 H (11.5-15.5) % Plt Count 80 L (150-450) k/uL Neutrophils # 12.0 H (1.3-7.7) k/uL Lymphocytes # 0.4 L (1.0-4.8) k/uL ABG pCO2 (35-45) mmHg BUN (7-17) mg/dL Creatinine (0.52-1.04) mg/dL POC Glucose (mg/dL) 107 H 102 H (75-99) mg/dL AST (14-36) U/L ALT (4-34) U/L Total Protein (6.3-8.2) g/dL Albumin (3.5-5.0) g/dL Crossmatch 06/16/20 06/16/20 Range/Units 04:15 04:15 WBC (3.8-10.6) k/uL RBC 2.57 L (3.80-5.40) m/uL Hgb 7.0 L (11.4-16.0) gm/dL Hct 24.3 L (34.0-46.0) % MCHC 28.7 L (31.0-37.0) g/dL RDW 19.9 H (11.5-15.5) % Plt Count 69 L (150-450) k/uL Neutrophils # 9.1 H (1.3-7.7) k/uL Lymphocytes # 0.4 L (1.0-4.8) k/uL ABG pCO2 (35-45) mmHg BUN 88 H (7-17) mg/dL Creatinine 4.25 H (0.52-1.04) mg/dL POC Glucose (mg/dL) (75-99) mg/dL AST 191 H (14-36) U/L ALT 137 H (4-34) U/L Total Protein 5.9 L (6.3-8.2) g/dL Albumin 2.8 L (3.5-5.0) g/dL Crossmatch
--- NOTE | 2020-06-16 10:06 | P.PN ---
Subjective Progress Note Date: 06/16/20 Principal diagnosis: Left pleural effusion, acute hypercapnic respiratory failure, acute on chronic diastolic heart failure. Previous medical history of chronic atrial fibrillatio n on no anticoagulation due to history of bleeding, chronic hypoxic respiratory failure on home oxygen, morbid obesity, hypertension, stage IV chronic kidney disease, chronic anemia, obstructive sleep apnea with home CPAP use, previous tobacco dependence, medical debility, osteoarthritis. POD #6 left chest tube placement The patient is currently laying in bed in the intensive care unit in no acute distress. Denies chest pain or worsening shortness of breath. Appears comfortable on Bipap. She is on Levophed at 0.01 mcg/kg/min. Left pleural chest tube remains, continues to drain, no air leak present. Objective - Vital Signs Vital signs: Vital Signs Temp 96.9 F L 06/16/20 04:00 Pulse 69 06/16/20 07:24 Resp 18 06/16/20 07:00 BP 90/41 06/16/20 07:00 Pulse Ox 98 06/16/20 07:00 Intake & Output 06/15/20 06/16/20 06/16/20 18:59 06:59 18:59 Intake Total 677.825 363.854 23 Output Total 2860 217 15 Balance -2182.175 146.854 8 Weight 206.43 kg Intake: IV 266 336 23 0.9 pressure bag 36 36 3 Piperacillin-Tazobactam 3 50 100 .375 gm In Sodium Chloride 0.9% 100 ml @ 25 mls/hr IVPB Q12HR [facility] Rx #:[id number] Sodium Chloride 0.9% 1, 180 200 20 000 ml @ 20 mls/hr IV . Q24H [facility] Rx#:[id number] Intake, IV Titration 101.825 27.854 0 Amount Norepinephrine 32 mg In 76.825 27.854 0 Sodium Chloride 0.9% 218 ml @ 0.05 MCG/KG/MIN 4. 784 mls/hr IV .Q24H [facility] Rx#:[id number] Piperacillin-Tazobactam 3 25 .375 gm In Sodium Chloride 0.9% 100 ml @ 25 mls/hr IVPB Q12HR [facility] Rx #:[id number] Blood Product 310 Rc As-1 Unit 310 [id number] Output: Chest Tube Drainage 270 110 10 Chest Tube Left Posterior 270 110 10 Chest Urine 90 107 5 Hemodialysis 2500 Other: Voiding Method Indwelling Catheter Indwelling Catheter # Bowel Movements 1 ABP, PAP, CO, CI - Last Documented Arterial Blood Pressure 102/51 - Constitutional General appearance: Present: cooperative, morbidly obese, no acute distress - Respiratory Details: Lungs sounds diminished on the left. Respirations even, nonlabored. Currently on BiPap, FiO2 30%, IPAP 14, EPAP 4, with oxygen saturation 92%. Left pleural chest tube present to waterseal, 50 mL serosanguineous drainage overnight, 400 mL in the last 24 hours, no air leak present. - Cardiovascular Details: S1/S2 present, irregular rate and rhythm, controlled atrial fibrillation on telemetry. Palpable pulses bilaterally, generalized edema present. - Gastrointestinal Gastrointestinal Comment(s): Abdomen soft, nontender, nondistended, obese. Active bowel sounds present 4 quadrants. - Genitourinary Genitourinary Comment(s): Arteaga present draining clear, yellow urine - Integumentary Integumentary Comment(s): Skin is warm and dry. She does have several areas of tape tapia and maceration from tape - Neurologic Neurologic: Present: CNII-XII intact - Musculoskeletal Musculoskeletal: Present: generalized weakness - Psychiatric Psychiatric: Present: A&O x's 3, appropriate affect - Allied health notes Allied health notes reviewed: nursing - Labs CBC & Chem 7: 06/16/20 04:15 06/16/20 04:15 Labs: Abnormal Lab Results - Last 24 Hours (Table) 06/14/20 06/15/20 06/15/20 Range/Units 22:17 06:30 11:59 WBC (3.8-10.6) k/uL RBC (3.80-5.40) m/uL Hgb (11.4-16.0) gm/dL Hct (34.0-46.0) % MCHC (31.0-37.0) g/dL RDW (11.5-15.5) % Plt Count (150-450) k/uL Neutrophils # (1.3-7.7) k/uL Lymphocytes # (1.0-4.8) k/uL ABG pCO2 73 H* (35-45) mmHg BUN (7-17) mg/dL Creatinine (0.52-1.04) mg/dL POC Glucose (mg/dL) 104 H (75-99) mg/dL AST (14-36) U/L ALT (4-34) U/L Total Protein (6.3-8.2) g/dL Albumin (3.5-5.0) g/dL Crossmatch See Detail 06/15/20 06/15/20 06/15/20 Range/Units 18:03 18:04 23:45 WBC 13.3 H (3.8-10.6) k/uL RBC 2.69 L (3.80-5.40) m/uL Hgb 7.4 L (11.4-16.0) gm/dL Hct 25.5 L (34.0-46.0) % MCHC 28.9 L (31.0-37.0) g/dL RDW 19.8 H (11.5-15.5) % Plt Count 80 L (150-450) k/uL Neutrophils # 12.0 H (1.3-7.7) k/uL Lymphocytes # 0.4 L (1.0-4.8) k/uL ABG pCO2 (35-45) mmHg BUN (7-17) mg/dL Creatinine (0.52-1.04) mg/dL POC Glucose (mg/dL) 107 H 102 H (75-99) mg/dL AST (14-36) U/L ALT (4-34) U/L Total Protein (6.3-8.2) g/dL Albumin (3.5-5.0) g/dL Crossmatch 06/16/20 06/16/20 Range/Units 04:15 04:15 WBC (3.8-10.6) k/uL RBC 2.57 L (3.80-5.40) m/uL Hgb 7.0 L (11.4-16.0) gm/dL Hct 24.3 L (34.0-46.0) % MCHC 28.7 L (31.0-37.0) g/dL RDW 19.9 H (11.5-15.5) % Plt Count 69 L (150-450) k/uL Neutrophils # 9.1 H (1.3-7.7) k/uL Lymphocytes # 0.4 L (1.0-4.8) k/uL ABG pCO2 (35-45) mmHg BUN 88 H (7-17) mg/dL Creatinine 4.25 H (0.52-1.04) mg/dL POC Glucose (mg/dL) (75-99) mg/dL AST 191 H (14-36) U/L ALT 137 H (4-34) U/L Total Protein 5.9 L (6.3-8.2) g/dL Albumin 2.8 L (3.5-5.0) g/dL Crossmatch - Imaging and Cardiology Chest x-ray: report reviewed, image reviewed Assessment and Plan Assessment: 1. Left pleural effusion, S/P aborted thoracentesis, placement of Thoravent, cytology negative, fluid transudative in nature, status post left thoracostomy tube placement 2. Acute hypercapneic respiratory failure requiring mechanical ventilation, now on BiPap 3. Acute on chronic diastolic heart failure 4. Chronic atrial fibrillation on no anticoagulation due to history of bleeding 5. Chronic hypoxic respiratory failure, on home oxygen 6. Morbid obesity 7. History of hypertension 8. Stage IV chronic kidney disease 9. Chronic anemia 10. Obstructive sleep apnea with home Cpap use 11. Previous history of tobacco dependence 12. Medical debility, resides in [facility] 13. Osteoarthritis Plan: 1. Continue left pleural chest tube to water seal. We will continue to monitor drainage and discontinue chest tube when drainage is minimal 2. Wean O2 as tolerated, BiPAP management per pulmonology. Encourage incentive spirometry use. Bronchodilators, steroids, antibiotics per pulmonology 3. Increase activity as tolerated 4. Will monitor daily x-rays 5. Management of other comorbidities per primary care service, other consultants 6. More recommendations to follow Time with Patient: Greater than 30
[2020-06-16] MEDS: ASPIRIN 81 MG PO SCH (11:05)
[2020-06-16] MEDS: FOLIC ACID 1 MG TAB PO SCH (11:05)
[2020-06-16 11:09] LABS: Glucose,Whole Blood 102 mg/dL (75-99)
[2020-06-16] MEDS: METOPROLOL TARTRATE 5 MG/5 ML VIAL IVP SCH ×2 (11:19→23:13)
--- NOTE | 2020-06-16 14:38 | P.PN ---
Subjective 70-year-old patient was chronic stable medical conditions include CHF EF 55 and 55%, morbid obesity, chronic kidney disease stage IV secondary to ne phrosclerosis, renal bone disease, anemia of chronic kidney disease, persistent atrial fibrillation, fatty liver, COPD, primary osteoarthritis, obstructive sleep apnea, chronic gout, on home oxygen, chronic medical debility at her baseline uses a lift a wheelchair. Patient is a resident at [facility]. Patient presents with increasing swelling about a week. Increase in shortness of breath. Appetite is okay. Bowel movements are okay. No fever no chills. Started on IV Lasix. Admitted with CHF exacerbation. Put on IV Lasix. On June 04 -was taken to for thoracentesis and it was a bit difficult by IR. Patient went into PEA cardiac arrest. intubated. Hypotensive. Moved to ICU. Thora-vent was placed. About 850 mL of pus-bloody fluid was obtained. [id number]. On the ventilator. Telemetry shows sinus rhythm. Left chest tube to suction. On IV levo fed and propofol. Tube feeding. Granddaughter at the bedside. 06/08/2020 Patient is currently mechanical ventilator and is being monitored in the ICU. Sedated. low dose levophed. Chest x-ray showed cardiomegaly with central vascular congestion and small to moderate sized bilateral pleural fluid collections with the left sided pleural drainage catheter. Bronchial fluid cultures negative so far. Laboratory data showed WBC 8.2, hemoglobin 7.0 and platelets 87 BUN 84 and creatinine 3.29 Albumin 2.2 06/09/2020 Patient remains on ventilator and is currently sedated. Patient is also on Levophed drip. Chest x-ray showed suspect some improvement in patient's volume status. There may be basilar effusions. Atelectasis, difficult to exclude pneumonia. Patient does have chest tube with minimal drainage. Laboratory data showed WBC 11.8, hemoglobin 7.9 and platelets 87 BUN 88 and creatinine 3.06 Pulmonary and nephrology is on board. 06/10/2020 Patient is currently extubated and is saturating well on oxygen via nasal cannula. Patient is otherwise awake alert and trying to communicate. Chest x-ray this morning showed improving aeration of the left especially in the upper and midlung after left-sided chest tube placement. Focal opacity remains at the left base as well as trace right effusion. 2D echocardiogram showed ejection fraction 40 to 45% there is severe tricuspid regurgitation present. Severe pulmonary hypertension. Left ventricle systolic pressure is 84.96 mmHg. Laboratory data showed WBC 13.2, hemoglobin 7.3 and platelets 83 BUN 100 and creatinine 2.97 06/11/2020 Patient is currently remained ICU. Awake alert but not communicating. Patient is off the ventilator. Currently on oxygen via nasal cannula. Patient is status post chest tube placement. Repeat chest x-ray showed lung seems expanded but left lower lobe remains consolidated. Patient is still on Levophed drip at low-dose. Patient went into A. fib with RVR and was started on amiodarone drip. Cardiology was consulted. Creatinine level is elevated. Nephrology is following. 06/12/2020 Patient is currently in MICU. Awake alert and oriented but communicating very slowly. Able to follow simple commands. Continued on Lasix drip. Patient is also reporting Levophed drip. Amiodarone drip due to atrial fibrillation with RVR. Chest x-ray showed persistent left-sided volume loss with worsening left lung opacity despite chest tube in place. Suggests worsening left-sided pleural effusion and associated left lung atelectasis and/or infiltrate. Patient is being continued on antibiotics in the form of Zosyn. Cardiology, pulmonary and nephrology is on board. Laboratory data showed WBC 23.2, hemoglobin 7.3, platelets 131 BUN 96 and creatinine 3.56 Urinalysis is negative for infection. Patient has been afebrile. 06/13/2020 Patient is currently remains in MICU. More awake and oriented and able to talk simple words. Denied any chest pain. No worsening shortness of breath. patient is currently on oxygen via nasal cannula. Patient was BiPAP in the morning. Chest x-ray showed cardiomegaly and interstitial prominence correlate for CHF with mild pulmonary vascular congestion. Improving aeration in the left with decreased but persistent moderate left pleural effusion with adjacent atelectasis and/or consolidation. Chest tube remains in place. Increasing small right effusion. remains on levophed. 06/14/2020 Patient says she is feeling better. Patient can use to have left-sided chest tube to wall suction there is a concern about chylothorax patient remains on IV Lasix drip, patient is also on IV hydrocortisone every 6 hours. Patient does have sick euthyroid syndrome TSH need to be repeated again. 06/15/2020 Patient is still has a chest tube which is draining. Patient went into hypercapnic respiratory failure yesterday for which patient was started on BiPAP patient was initiated on hemodialysis and is undergoing hemodialysis today 06/16/2020 Patient is quite a bit lethargic patient is off BiPAP at this time patient is still on hyperelastic cannula oxygen patient is undergoing hemodialysis today patient is a low-dose of norepinephrine. Can use to have a chest tube AST and ALP are bit worse Constitutional: Denied any fatigue denied any fever. Cardio vascular: denied any chest pain, palpitations Gastrointestinal denied any nausea vomiting Pulmonary: Denied any shortness of breath cough Neurologic denied any new focal deficits All inpatient medications were reviewed and appropriate changes in these medications as dictated in the interval history and assessment and plan. Objective - Vital Signs Vital signs: Vital Signs Temp 98 F 06/16/20 12:00 Pulse 81 06/16/20 13:00 Resp 15 06/16/20 13:00 BP 109/62 06/16/20 12:00 Pulse Ox 90 L 06/16/20 13:00 Intake & Output 06/15/20 06/16/20 06/16/20 18:59 06:59 18:59 Intake Total 677.825 363.854 366 Output Total 2860 217 3045 Balance -2182.175 146.854 -2679 Weight 206.43 kg 206.43 kg Intake: IV 266 336 366 0.9 pressure bag 36 36 21 Piperacillin-Tazobactam 3 50 100 .375 gm In Sodium Chloride 0.9% 100 ml @ 25 mls/hr IVPB Q12HR [facility] Rx #:[id number] Piperacillin-Tazobactam 3 125 .375 gm In Sodium Chloride 0.9% 100 ml @ 25 mls/hr IVPB Q12HR [facility] Rx #:[id number] Sodium Chloride 0.9% 1, 180 200 220 000 ml @ 20 mls/hr IV . Q24H [facility] Rx#:[id number] Intake, IV Titration 101.825 27.854 0 Amount Norepinephrine 32 mg In 76.825 27.854 0 Sodium Chloride 0.9% 218 ml @ 0.05 MCG/KG/MIN 4. 784 mls/hr IV .Q24H [facility] Rx#:[id number] Piperacillin-Tazobactam 3 25 .375 gm In Sodium Chloride 0.9% 100 ml @ 25 mls/hr IVPB Q12HR [facility] Rx #:[id number] Blood Product 310 Rc As-1 Unit 310 [id number] Output: Chest Tube Drainage 270 110 10 Chest Tube Left Posterior 270 110 10 Chest Urine 90 107 35 Hemodialysis 2500 3000 Other: Voiding Method Indwelling Catheter Indwelling Catheter Indwelling Catheter # Bowel Movements 1 ABP, PAP, CO, CI - Last Documented Arterial Blood Pressure 118/51 - Exam PHYSICAL EXAMINATION: GENERAL: The patient is drowsy arousable on BiPAP, not in any acute distress. Morbidly obese him on BiPAP HEENT: Pupils are round and equally reacting to light. EOMI. No scleral icterus. No conjunctival pallor. Normocephalic, atraumatic. No pharyngeal erythema. No thyromegaly. CARDIOVASCULAR: S1 and S2 present. No murmurs, rubs, or gallops. PULMONARY: Chest is clear to auscultation, no wheezing or crackles. ABDOMEN: Soft, nontender, nondistended, normoactive bowel sounds. No palpable organomegaly. MUSCULOSKELETAL: No joint swelling or deformity. EXTREMITIES: No cyanosis, clubbing, does have pedal edema NEUROLOGICAL: Gross neurological examination did not reveal any focal deficits. SKIN: No rashes. - Labs CBC & Chem 7: 06/16/20 04:15 06/16/20 04:15 Labs: Abnormal Lab Results - Last 24 Hours (Table) 06/14/20 06/15/20 06/15/20 Range/Units 22:17 18:03 18:04 WBC 13.3 H (3.8-10.6) k/uL RBC 2.69 L (3.80-5.40) m/uL Hgb 7.4 L (11.4-16.0) gm/dL Hct 25.5 L (34.0-46.0) % MCHC 28.9 L (31.0-37.0) g/dL RDW 19.8 H (11.5-15.5) % Plt Count 80 L (150-450) k/uL Neutrophils # 12.0 H (1.3-7.7) k/uL Lymphocytes # 0.4 L (1.0-4.8) k/uL ABG pCO2 73 H* (35-45) mmHg BUN (7-17) mg/dL Creatinine (0.52-1.04) mg/dL POC Glucose (mg/dL) 107 H (75-99) mg/dL AST (14-36) U/L ALT (4-34) U/L Total Protein (6.3-8.2) g/dL Albumin (3.5-5.0) g/dL 06/15/20 06/16/20 06/16/20 Range/Units 23:45 04:15 04:15 WBC (3.8-10.6) k/uL RBC 2.57 L (3.80-5.40) m/uL Hgb 7.0 L (11.4-16.0) gm/dL Hct 24.3 L (34.0-46.0) % MCHC 28.7 L (31.0-37.0) g/dL RDW 19.9 H (11.5-15.5) % Plt Count 69 L (150-450) k/uL Neutrophils # 9.1 H (1.3-7.7) k/uL Lymphocytes # 0.4 L (1.0-4.8) k/uL ABG pCO2 (35-45) mmHg BUN 88 H (7-17) mg/dL Creatinine 4.25 H (0.52-1.04) mg/dL POC Glucose (mg/dL) 102 H (75-99) mg/dL AST 191 H (14-36) U/L ALT 137 H (4-34) U/L Total Protein 5.9 L (6.3-8.2) g/dL Albumin 2.8 L (3.5-5.0) g/dL 06/16/20 Range/Units 11:07 WBC (3.8-10.6) k/uL RBC (3.80-5.40) m/uL Hgb (11.4-16.0) gm/dL Hct (34.0-46.0) % MCHC (31.0-37.0) g/dL RDW (11.5-15.5) % Plt Count (150-450) k/uL Neutrophils # (1.3-7.7) k/uL Lymphocytes # (1.0-4.8) k/uL ABG pCO2 (35-45) mmHg BUN (7-17) mg/dL Creatinine (0.52-1.04) mg/dL POC Glucose (mg/dL) 102 H (75-99) mg/dL AST (14-36) U/L ALT (4-34) U/L Total Protein (6.3-8.2) g/dL Albumin (3.5-5.0) g/dL Assessment and Plan Plan: Assessment and Plan Assessment: -s/p Cardiac arrest with PEA, patient was intubated and was extubated on the June 09, patient had complete opacification of the left lung and had pleural tap and presently at bedtime 2 the fluid was suspicious for chylothorax and the fluid was transudative nature -Acute hypoxic, hypercapnic respiratory failure-requiring ventilator, patient is off ventilatory support as mentioned above but the patient became hypercapnic and endocrine the CPAP machine today -Left-sided pleural effusion and consolidation and a possible pneumonia and patient is on IV antibiotics in form of Zosyn Status post chest tube placement -New onset A. fib with RVR. -Hypotensive shock requiring pressor support. possibe Septic shock due to Pneumonia -Acute on Chronic congestive heart failure from diastolic dysfunction - Severe pulmonary hypertension and severe TR. - Acute kidney injury secondary to ATN secondary to cardiac arrest/hemodynamic instability. -Chronic kidney disease stage IV secondary to nephrosclerosis, patient will undergo catheter placement for possible dialysis -Morbid obesity BMI 75.2 -Chronic kidney disease renal bone disease -Anemia of chronic kidney disease, patient the hemoglobin did drop because of frequent blood draws and patient will receive 1 unit of PRBC transfusion today -Persistent atrial fibrillation, rate controlled Nonalcoholic fatty liver disease -COPD in an ex-smoker -Primary osteoarthritis -Obstructive sleep apnea -Chronic gout -Chronic hypoxic respiratory failure from COPD -Chronic medical debility and a baseline patient does use a lift to a wheelchair -Thoracentesis patient has a left-sided chest tube
--- NOTE | 2020-06-16 15:25 | PN ---
PROGRESS NOTE Patient is seen for followup for acute kidney injury on top of chronic, severe volume overload. Patient was dialyzed yesterday and then again today. She had about 3 L of fluid removed. She had 2.5 L removed yesterday. Blood pressure has improved. Levophed is down to 2 mcg. Urine output remains low at about 5-10 mL an hour. Patient's mentation has improved. She was hypercapnic with CO2 retention and has been on BiPAP for more than 24 hours. She is currently awake. She is following commands, but still lethargic and not able to eat. There has been consideration for possible feeding tube placement. PHYSICAL EXAMINATION: On examination today, blood pressure was 118/59, heart rate 84 per minute. She is afebrile. Examination of the heart S1, S2. Examination of lungs: Decreased breath sounds at bases. Abdomen is soft. Morbidly obese. Examination of lower extremities shows edema 3+ bilaterally. Chronic skin changes. [employer] exam shows patient is moving all 4 extremities. She has been following commands and she is lethargic. LABS: Show sodium 143, potassium 4.9, BUN 88, serum creatinine 4.25, hemoglobin 7.0. ASSESSMENT: 1. Acute kidney injury cardiorenal/ATN, currently oliguric and hemodialysis dependent status post 2 treatments. We will plan for dialysis again tomorrow. 2. Volume overload expect improvement with ongoing hemodialysis and ultrafiltration. Patient is off Lasix drip. Urine output remains minimal. 3. Anemia, no active bleeding noted. Patient is maintained on Aranesp, status post packed RBCs transfusion earlier when hemoglobin was 6.8. 4. Chronic kidney disease stage 4 secondary to diabetic kidney disease baseline creatinine 2.7-3. 5. Diastolic heart failure. 6. Pneumothorax with left-sided chest tube. 7. Status post cardiac arrest/TEA. PLAN: Repeat hemodialysis in a.m. Wean down Levophed as tolerated. Continue with the midodrine. Continue Aranesp. Patient may not be an ideal candidate for long-term outpatient dialysis. Agree with discussion of code status. MMODL / IJN: [id number] /
[2020-06-16] MEDS: CHOLECALCIFEROL 1,000 UNIT TAB PO SCH (16:48)
[2020-06-16 17:51] LABS: Glucose,Whole Blood 103 mg/dL (75-99)
[2020-06-16] MEDS: NOREPINEPHRINE 32 MG in SODIUM CHLORIDE 0.9% 218 ML IV SCH (17:57)
[2020-06-16] MEDS: Acetaminophen-Codeine 300-30mg TAB PO PRN (17:58)
[2020-06-16] MEDS: ATORVASTATIN 40 MG TAB PO SCH (20:09)
[2020-06-17] MEDS ORDERED: DEXTROSE 50% SYRINGE 50 ML IVP ONE (00:36)
[2020-06-17 00:37] LABS: Glucose,Whole Blood 67 mg/dL (75-99)
[2020-06-17] MEDS: INSULIN ASPART (NovoLOG) 100 UNIT/ML VIAL SQ SCH ×4 (00:37→19:03)
[2020-06-17] MEDS: HYDROCORTISONE SUCCINATE 100 MG/2 ML VIAL IV SCH ×4 (00:37→19:04)
[2020-06-17 00:48] LABS: Glucose,Whole Blood 131 mg/dL (75-99)
[2020-06-17 05:46] LABS: Anisocytosis Moderate; Basophils % (A) 0 %; Eosinophils % (A) 0 %; HCT 24.8 % (34.0-46.0); HGB 7.2 gm/dL (11.4-16.0); Hypochromasia Marked; Lymphocytes # (A) 0.4 k/uL (1.0-4.8); Lymphocytes % (A) 4 %; MCH 27.4 pg (25.0-35.0); MCHC 28.9 g/dL (31.0-37.0); MCV 94.6 fL (80.0-100.0); Macrocytosis Slight; Mean Platelet Volume 11.7; Monocytes # (A) 0.6 k/uL (0-1.0); Monocytes % (A) 5 %; Neutrophils % (A) 90 %; Poikilocytosis Moderate; RBC 2.63 m/uL (3.80-5.40); RDW 20.2 % (11.5-15.5); WBC 11.2 k/uL (3.8-10.6)
[2020-06-17 05:51] LABS: Platelet Count 72 k/uL (150-450)
[2020-06-17 05:56] LABS: Potassium 4.9 mmol/L (3.5-5.1)
[2020-06-17] MEDS: IPRATROPIUM-ALBUTEROL 3 ML NEB INHALATION SCH ×4 (07:28→20:11)
--- NOTE | 2020-06-17 08:01 | P.PN ---
Subjective Progress Note Date: 06/17/20 Principal diagnosis: Left pleural effusion, acute hypercapnic respiratory failure, acute on chronic diastolic heart failure. Previous medical history of chronic atrial fibrillatio n on no anticoagulation due to history of bleeding, chronic hypoxic respiratory failure on home oxygen, morbid obesity, hypertension, stage IV chronic kidney disease, chronic anemia, obstructive sleep apnea with home CPAP use, previous tobacco dependence, medical debility, osteoarthritis. POD #7 left chest tube placement The patient is currently laying in bed in the intensive care unit in no acute distress. Remains on BiPAP. Not as responsive today, RN states she was moaning quite a bit last night, oriented to person only this morning. She is on Levophed at 0.01 mcg/kg/min. Left pleural chest tube remains, continues to drain, no air leak present. Objective - Vital Signs Vital signs: Vital Signs Temp 96.4 F L 06/17/20 04:00 Pulse 85 06/17/20 07:37 Resp 14 06/17/20 07:00 BP 119/62 06/16/20 19:00 Pulse Ox 100 06/17/20 07:00 Intake & Output 06/16/20 06/17/20 06/17/20 18:59 06:59 18:59 Intake Total 514.288 262.618 0 Output Total 3115 193 Balance -2600.712 69.618 0 Weight 206.43 kg 202.847 kg Intake: IV 504 253 0.9 pressure bag 39 33 Piperacillin-Tazobactam 3 145 .375 gm In Sodium Chloride 0.9% 100 ml @ 25 mls/hr IVPB Q12HR [facility] Rx #:[id number] Sodium Chloride 0.9% 1, 320 220 000 ml @ 20 mls/hr IV . Q24H [facility] Rx#:[id number] Intake, IV Titration 10.288 9.618 0 Amount Norepinephrine 32 mg In 10.288 9.618 0 Sodium Chloride 0.9% 218 ml @ 0.05 MCG/KG/MIN 4. 784 mls/hr IV .Q24H [facility] Rx#:[id number] Output: Chest Tube Drainage 40 100 Chest Tube Left Posterior 40 100 Chest Urine 75 93 Hemodialysis 3000 Other: Voiding Method Indwelling Catheter Indwelling Catheter ABP, PAP, CO, CI - Last Documented Arterial Blood Pressure 95/56 - Constitutional General appearance: Present: cooperative, morbidly obese, no acute distress - Respiratory Details: Lungs sounds diminished on the left. Respirations even, nonlabored. Currently on BiPap, FiO2 30%, IPAP 14, EPAP 4, with oxygen saturation 100%. Left pleural chest tube present to waterseal, 100 mL serosanguineous drainage in the last 24 hours, no air leak present. - Cardiovascular Details: S1/S2 present, irregular rate and rhythm, controlled atrial fibrillation on telemetry. Palpable pulses bilaterally, generalized edema present. - Gastrointestinal Gastrointestinal Comment(s): Abdomen soft, nontender, nondistended, obese. Active bowel sounds present 4 quadrants. - Genitourinary Genitourinary Comment(s): [place] present draining clear, yellow urine - Integumentary Integumentary Comment(s): Skin is warm and dry. She does have several areas of tape tapia and maceration from tape - Musculoskeletal Musculoskeletal: Present: generalized weakness - Psychiatric Psychiatric Comment(s): Oriented to person only, very sleepy this morning - Allied health notes Allied health notes reviewed: nursing - Labs CBC & Chem 7: 06/17/20 04:55 06/17/20 04:55 Labs: Abnormal Lab Results - Last 24 Hours (Table) 06/14/20 06/16/20 06/16/20 Range/Units 22:17 04:15 04:15 WBC (3.8-10.6) k/uL RBC 2.57 L (3.80-5.40) m/uL Hgb 7.0 L (11.4-16.0) gm/dL Hct 24.3 L (34.0-46.0) % MCHC 28.7 L (31.0-37.0) g/dL RDW 19.9 H (11.5-15.5) % Plt Count 69 L (150-450) k/uL Neutrophils # 9.1 H (1.3-7.7) k/uL Lymphocytes # 0.4 L (1.0-4.8) k/uL ABG pCO2 73 H* (35-45) mmHg BUN 88 H (7-17) mg/dL Creatinine 4.25 H (0.52-1.04) mg/dL Glucose (74-99) mg/dL POC Glucose (mg/dL) (75-99) mg/dL AST 191 H (14-36) U/L ALT 137 H (4-34) U/L Total Protein 5.9 L (6.3-8.2) g/dL Albumin 2.8 L (3.5-5.0) g/dL 06/16/20 06/16/20 06/17/20 Range/Units 11:07 17:49 00:35 WBC (3.8-10.6) k/uL RBC (3.80-5.40) m/uL Hgb (11.4-16.0) gm/dL Hct (34.0-46.0) % MCHC (31.0-37.0) g/dL RDW (11.5-15.5) % Plt Count (150-450) k/uL Neutrophils # (1.3-7.7) k/uL Lymphocytes # (1.0-4.8) k/uL ABG pCO2 (35-45) mmHg BUN (7-17) mg/dL Creatinine (0.52-1.04) mg/dL Glucose (74-99) mg/dL POC Glucose (mg/dL) 102 H 103 H 67 L (75-99) mg/dL AST (14-36) U/L ALT (4-34) U/L Total Protein (6.3-8.2) g/dL Albumin (3.5-5.0) g/dL 06/17/20 06/17/20 06/17/20 Range/Units 00:46 04:55 04:55 WBC 11.2 H (3.8-10.6) k/uL RBC 2.63 L (3.80-5.40) m/uL Hgb 7.2 L (11.4-16.0) gm/dL Hct 24.8 L (34.0-46.0) % MCHC 28.9 L (31.0-37.0) g/dL RDW 20.2 H (11.5-15.5) % Plt Count 72 L (150-450) k/uL Neutrophils # 10.0 H (1.3-7.7) k/uL Lymphocytes # 0.4 L (1.0-4.8) k/uL ABG pCO2 (35-45) mmHg BUN 74 H (7-17) mg/dL Creatinine 3.85 H (0.52-1.04) mg/dL Glucose 105 H (74-99) mg/dL POC Glucose (mg/dL) 131 H (75-99) mg/dL AST (14-36) U/L ALT (4-34) U/L Total Protein (6.3-8.2) g/dL Albumin (3.5-5.0) g/dL - Imaging and Cardiology Chest x-ray: image reviewed Assessment and Plan Assessment: 1. Left pleural effusion, S/P aborted thoracentesis, placement of Thoravent, cytology negative, fluid transudative in nature, status post left thoracostomy tube placement 2. Acute hypercapneic respiratory failure requiring mechanical ventilation, now on BiPap 3. Acute on chronic diastolic heart failure 4. Chronic atrial fibrillation on no anticoagulation due to history of bleeding 5. Chronic hypoxic respiratory failure, on home oxygen 6. Morbid obesity 7. History of hypertension 8. Stage IV chronic kidney disease 9. Chronic anemia 10. Obstructive sleep apnea with home Cpap use 11. Previous history of tobacco dependence 12. Medical debility, resides in [facility] 13. Osteoarthritis Plan: 1. Will discontinue left pleural chest tube 2. Wean O2 as tolerated, BiPAP management per pulmonology. Encourage incentive spirometry use. Bronchodilators, steroids, antibiotics per pulmonology 3. Increase activity as tolerated 4. Will monitor daily x-rays 5. Management of other comorbidities per primary care service, other consultants 6. More recommendations to follow Time with Patient: Greater than 30
--- NOTE | 2020-06-17 08:21 | XR ---
EXAMINATION TYPE: XR chest 1V portable DATE OF EXAM: 06/17/2020 Comparison: 06/16/2020 Clinical History: 70-year-old female shortness of breath Findings: Right-sided double-lumen hemodialysis catheter with tips at the lower SVC. Heart is remains mildly en larged with diffuse interstitial density and patchy lower lung densities. Left-sided chest tube remai ns in place. No appreciable pneumothorax. Impression: Continued CHF with pulmonary vascular congestion. Suspect small effusions with patchy bibasilar atele ctasis and or consolidation or patchy pulmonary edema.
[2020-06-17] MEDS: MIDODRINE 5 MG TAB PO SCH ×3 (08:30→16:39)
[2020-06-17] MEDS: allopurinoL 100 MG TAB PO SCH (08:31)
[2020-06-17] MEDS: AMIODARONE 200 MG TAB PO SCH ×2 (08:31→21:36)
[2020-06-17] MEDS: NON FORMULARY DRUG (Linaclotide [Linzess] 145 MCG) PO SCH (08:31)
[2020-06-17] MEDS: CALCIUM ACETATE 667 MG TAB PO SCH (08:31)
--- NOTE | 2020-06-17 08:42 | P.PN ---
Subjective Progress Note Date: 06/17/20 Principal diagnosis: Pulmonary hypertension, decompensated heart failure This is a 70-year-old female past medical history significant for morbid obesity, chronic kidney disease, hypertension, anemia, previous tobacco dependence, stability residing in an [facility], diastolic heart failure with ejection fraction 40-45% and persistent atrial fibrillation who had presented for increasing swelling and shortness breath or the prior week and 06/03/2020. She had initial ultrasound on 06/10/2020 which showed ejection fraction 40-45% with severe pulmonary hypertension at 89 with severe right ventricular and right atrial enlargement and severe tricuspid regurgitation. Patient initially had left lung white out and was initially intubated. She had chest tube placed for left lung effusion with some improvement. 06/16/2020 Patient underwent dialysis yesterday and is currently undergoing dialysis today with goal of 3 L to be taken off. She remains obtunded and nonresponsive to verbal stimuli. She remains in atrial fibrillation with controlled ventricular response with heart rates in the 70s. She did require some increase in her levophed while on dialysis yesterday however has been maintaining a similar rate of pressors this morning. Hemoglobin somewhat downtrending to 7.0 this morning. She has been lethargic and therefore has not been able to take her medications by mouth. She was placed on BiPAP for increasing CO2. 06/17/2020 Patient again underwent dialysis yesterday with approximately 3 L taken off. Per nursing patient scheduled for dialysis again today. She remains in A. fib with controlled response. She's been on a low-dose of the Levophed however has been unable to take anything by mouth such as her Midodrine. Remains on BiPAP. She remains lethargic and alert and oriented 1. DIAGNOSTICS Laboratory reviewed, BUN is 102, creatinine is 3.87, AST and ALT are mildly elevated at 68 and 51, hemoglobin is 7.2, white blood cell count 15.3. Current cardiac medications include amiodarone 400 mg twice a day, aspirin 81 mg daily, Lipitor 40 mg daily, Cortef 50 mg IV every 6 hours, Lopressor 5 mg IV push every 12 hours, Midrin 10 mg 3 times a day. REVIEW OF SYSTEMS At the time of my exam: Patient extremely lethargic and not answering questions. PHYSICAL EXAMINATION Blood pressure 95/56 on the Levophed heart rate 71 afebrile and maintaining oxygen saturation on BiPAP CONSTITUTIONAL: No apparent distress, ill-appearing, lethargic and not respond ing to verbal stimuli, morbidly obese HEENT: Head is normocephalic. Pupils are equal, round. Sclerae anicteric. Mucous membranes of the mouth are moist. No carotid bruit. CHEST EXAMINATION: Left worse than right rhonchi and decreased breath sounds at the left base. HEART EXAMINATION: Irregularly irregular rate and rhythm. Normal S1-S2, positive RV heave, positive 3/6 systolic ejection murmur ABDOMEN: Soft, nontender. Positive bowel sounds. EXTREMITIES: 2+ peripheral pulses, no lower extremity edema and no calf tenderness. NEUROLOGIC EXAMINATION: Patient is somnolent, lethargic ASSESSMENT 1. Persistent atrial fibrillation, not anticoagulated because of recurrent episodes of bleeding 2. Morbid obesity 3. Acute on chronic diastolic heart failure with ejection fraction 40-45% from echo 06/10/2020 4. Chronic kidney disease, recently started hemodialysis 5. Anemia 6. History of sleep apnea 7. Severe pulmonary hypertension with RVSP of 85 on echo from 06/10/2020 with severe right ventricle and right atrial enlargement and severe tricuspid regurgitation 8. Possible cardiorenal syndrome with decompensated mainly right heart failure with worsening creatinine PLAN Patient still unable to take oral medications. Only on a low dose of levophed. Hemoglobin at 7.2 today. Patient continues to have chest tube in place with minimal output per nursing. Continue supportive care. Continue with metoprolol IV for rate control however appears to be predominantly controlled. Continue w ith dialysis and monitor neurologic status. Given severe pulmonary hypertension, RV dilation and severe tricuspid regurgitation, prognosis poor. Objective - Vital Signs Vital signs: Vital Signs Temp 96.4 F L 06/17/20 04:00 Pulse 85 06/17/20 07:37 Resp 14 06/17/20 07:00 BP 119/62 06/16/20 19:00 Pulse Ox 100 06/17/20 07:00 Intake & Output 06/16/20 06/17/20 06/17/20 18:59 06:59 18:59 Intake Total 514.288 262.618 46 Output Total 3115 193 5 Balance -2600.712 69.618 41 Weight 206.43 kg 202.847 kg Intake: IV 504 253 46 0.9 pressure bag 39 33 6 Piperacillin-Tazobactam 3 145 .375 gm In Sodium Chloride 0.9% 100 ml @ 25 mls/hr IVPB Q12HR [facility] Rx #:[id number] Sodium Chloride 0.9% 1, 320 220 40 000 ml @ 20 mls/hr IV . Q24H [facility] Rx#:[id number] Intake, IV Titration 10.288 9.618 0 Amount Norepinephrine 32 mg In 10.288 9.618 0 Sodium Chloride 0.9% 218 ml @ 0.05 MCG/KG/MIN 4. 784 mls/hr IV .Q24H [facility] Rx#:[id number] Output: Chest Tube Drainage 40 100 Chest Tube Left Posterior 40 100 Chest Urine 75 93 5 Hemodialysis 3000 Other: Voiding Method Indwelling Catheter Indwelling Catheter ABP, PAP, CO, CI - Last Documented Arterial Blood Pressure 95/56 - Labs CBC & Chem 7: 06/17/20 04:55 06/17/20 04:55 Labs: Abnormal Lab Results - Last 24 Hours (Table) 06/14/20 06/16/20 06/16/20 Range/Units 22:17 11:07 17:49 WBC (3.8-10.6) k/uL RBC (3.80-5.40) m/uL Hgb (11.4-16.0) gm/dL Hct (34.0-46.0) % MCHC (31.0-37.0) g/dL RDW (11.5-15.5) % Plt Count (150-450) k/uL Neutrophils # (1.3-7.7) k/uL Lymphocytes # (1.0-4.8) k/uL ABG pCO2 73 H* (35-45) mmHg BUN (7-17) mg/dL Creatinine (0.52-1.04) mg/dL Glucose (74-99) mg/dL POC Glucose (mg/dL) 102 H 103 H (75-99) mg/dL 06/17/20 06/17/20 06/17/20 Range/Units 00:35 00:46 04:55 WBC 11.2 H (3.8-10.6) k/uL RBC 2.63 L (3.80-5.40) m/uL Hgb 7.2 L (11.4-16.0) gm/dL Hct 24.8 L (34.0-46.0) % MCHC 28.9 L (31.0-37.0) g/dL RDW 20.2 H (11.5-15.5) % Plt Count 72 L (150-450) k/uL Neutrophils # 10.0 H (1.3-7.7) k/uL Lymphocytes # 0.4 L (1.0-4.8) k/uL ABG pCO2 (35-45) mmHg BUN (7-17) mg/dL Creatinine (0.52-1.04) mg/dL Glucose (74-99) mg/dL POC Glucose (mg/dL) 67 L 131 H (75-99) mg/dL 06/17/20 Range/Units 04:55 WBC (3.8-10.6) k/uL RBC (3.80-5.40) m/uL Hgb (11.4-16.0) gm/dL Hct (34.0-46.0) % MCHC (31.0-37.0) g/dL RDW (11.5-15.5) % Plt Count (150-450) k/uL Neutrophils # (1.3-7.7) k/uL Lymphocytes # (1.0-4.8) k/uL ABG pCO2 (35-45) mmHg BUN 74 H (7-17) mg/dL Creatinine 3.85 H (0.52-1.04) mg/dL Glucose 105 H (74-99) mg/dL POC Glucose (mg/dL) (75-99) mg/dL
--- NOTE | 2020-06-17 09:17 | P.PN ---
Subjective Progress Note Date: 06/17/20 Principal diagnosis: Acute left lung opacification 70-year-old female patient, [facility] resident who was referred back to the emergency department because of worsening shortness of breath and hypoxemia. The patient had significant amount of weight gain in the order of 11 pounds over this past week. She also reported worsening lower extremity edema. She was unable to ambulate. She is currently bedbound. She is morbidly obese with a BMI of 34.2. No fever no chills. No aspiration. She has a mild cough. No chest pain. The chest x-rays showing complete opacification of the left lung without any significant shift of the trachea or volume loss. The left mainstem bronchus is currently off. White cell count 9.3 with hemoglobin of 7.9. Coagulation profile is within normal. 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 Serum bicarb is 29 with a sodium of 138. The liver functions is on essentially within normal limits. Albumin is at 3.3 with a total protein of 6.9. ProBNP level was 11,300. Currently, the patient is on 2 L of oxygen by nasal cannula. Pulse ox and order of 97%. Long with stage IV kidney disease secondary to do hypertensive nephrosclerosis. She also has chronic anemia, chronic proximal atrial fibrillation, COPD, osteoarthritis, obstructive sleep apnea, gout and she Zyvox and dependent and she has home O2. She is medically debilitated and she is a left and a walker. She is a resident of a [facility]. During her most recent hospitalization, the anemia was further worked up by EGD EGD showed mild gastritis. There was mild duodenitis. There was a small hiatal hernia. The patient is seen today 06/03/2020 in follow-up on the selective care unit. She is awake and alert in no acute distress. Currently resting flat in bed. Maintaining O2 saturation in the mid 90s on 2 L/m per nasal cannula. She's been afebrile. Was unable to tolerate a computed tomography scan of the chest yesterday. Sodium 138. Potassium 6.0. Creatinine 3.54. She remains on Lasix 80 mg IV every 12 hours. On 06/04/2020 patient seen in follow-up on selective care unit. She is resting comfortably in bed. She appears to be in no acute distress, she is on 2 L of oxygen her pulse ox is 92-100%, hemodynamically she stable, no couplets or chest pain, she's been afebrile, yesterday she had unsuccessful attempt at ultrasound- guided left thoracentesis, and patient was experiencing a lot of discomfort when the staff was trying to position her for the thoracentesis, and the procedure was aborted. Electrolytes are within normal limits, BUN was 96, creatinine was 3.74. She remains on diuretics 40 mg every 12 hours, her lower extremity edema slightly improved. Lung sounds reveal absent breath sounds on the left, and clear diminished breath sounds on the right, no cough or congestion. No altered mentation. Follow-up chest x-ray today shows stable findings complete opacified left hemithorax without mediastinal shift. On 06/14/2020 patient seen in follow-up in the intensive care unit, she is awake and alert, she is oriented 3, no evidence of distress, she is currently on 5 L of oxygen and the pulse ox of 98%, she has been afebrile, respirations are nonlabored, lung sounds are clear, diminished at the bases, left-sided chest tube remains in place to wall suction, and there has been 150 mL of serosanguineous output in the last 24 hours. No evidence of air leak. Today's chest x-ray shows no evidence of a sizable pneumothorax. Pleural fluid cultures have shown no growth, blood culture was negative. IV fluids include Lasix at 10 mg per hour, Levaquin fed is at 22 mics per minute, and 0.9 normal saline at a rate of 20 ML per hour, patient has been in positive fluid balance over the last 24 hours of 726 ML. Still has quite significant edema involving upper and lower extremities. Her cortisol level was 20, and we will add IV hydrocortisone 50 mg every 6 hours. TSH was 5.72, and patient will be started on thyroid hormone replacement. Patient remains on empiric antibiotics in the form of Zosyn. She remains in atrial fibrillation/atrial flutter, with the controlled rates. Today's labs have been reviewed, renal profile slightly bumped up, with BUN of 102, and creatinine of 3.87,, Celexa lites within normal limits, white blood cell count is trending down, down to 15.3, hemoglobin is 7.2 On 06/15/2020 patient seen in follow-up in the intensive care unit, she appears to be more lethargic on today's exam although she opens eyes to verbal stimuli and nods her head appropriately to yes or no questions. Overnight she was placed on BiPAP support, with pressures of 12 and 5 and 40%. This morning his blood gases show pO2 of 82, P CO2 of 73, and pH of 7.15. BiPAP settings were adjusted, and current pressures are 14 over 4 and FiO2 of 35%. Repeat blood gases showed pO2 of 60, pCO2 of 60, and pH of 7.212. Current drips include 0.9 normal saline at a rate of 20, Lasix drip at 15 mg per hour, however patient has not produced much urine, and at this point she is practically and uric. We will head is currently infusing at a rate of 14 mics per minute. Renal function continues to worsen, with B1 up to 102, and creatinine of 4.45. Patient had a right subclavian hemodialysis catheter placed yesterday by vascular surgery, with plans of initiating hemodialysis today. Labs have been reviewed, showing white blood cell count of 14.4, hemoglobin of 6.8, platelet count of 81, potassium is 5.3, the rest of the electrolytes are within normal limits, he is up to 128, ALT is 89, alkaline phosphatase is 118. Microbiology has been reviewed, showing no growth, blood cultures or pleural fluid cultures. Cytology the left pleural fluid Was negative for cells diagnostic of neoplasm. On 06/16/2020 patient seen in follow-up in the intensive care unit, she is lethargic today, she barely opens eyes to repeated verbal and tactile stimulation, she is not following command, she has remained on BiPAP support for last 24 hours, on pretty much on a continuous basis, her BiPAP settings are 14 over 4, and FiO2 of 30%. Yesterday patient was started on hemodialysis and 25 L of fluid was removed, today she is having hemodialysis treatment again with the goal of removing 3 L. Hemodynamically has improved, and she is on norepinephrine, however we were able to significantly wean down the dose of norepinephrine and is currently running at 2 mics per minute, 0.9 normal saline is running at 20 ML per hour, patient has been nothing by mouth related to being BiPAP dependent, and being lethargic. Left sided chest tube remains in place we place a to waterseal 24 hours ago, there is no evidence of air leak, today's chest x-ray has been reviewed showing persistent cardiomegaly with small bilateral pleural effusions and left greater than right basilar acute atelectasis and/or infiltrate. These labs have been reviewed, showing white blood cell, 10.1, hemoglobin is 7.0, electrolytes were within normal limits, renal profile slightly improved, BUN down to 88, and creatinine of 4.25. AST has trended up, up to 191, ALT is 137, total bilirubin is 1.2, within normal limits, patient has been afebrile, is still quite edematous, in her lower extr emities, and upper extremities. The catheter is in, and she is only producing 5-10 ML per hour. Her tota net fluid balance is -2 L over the last 24 hours. Renal fluid and blood cultures have shown no growth. Cytology of the left pleural fluid was negative for cells diagnostic of neoplasm On 06/17/2020 patient seen in follow-up in the intensive care unit. She is lethargic today, she remains on BiPAP support, with pressures of 14 over 4, and FiO2 of 30%, IV fluids 0.9 normal saline at a rate of 20 ML per hour, and Levaquin fed was discontinued this morning at 7:00. Current blood pressure is 123/58, patient is in A. fib which is chronic for her, with a controlled rate, at 76 BPM. Left chest tube has put out 100 mL of thin serous sinus output in last 24 hours, today's chest x-ray has been reviewed showing continue CHF with pulmonary congestion, small pleural effusions with patchy bibasilar atelectasis or consolidation or patchy pulmonary edema, patient had hemodialysis treatment for last 2 days. Yesterday 2.5 L of fluid was removed, today 3 L of fluid was removed. Today's blood work shows white cell count of 11.2, hemoglobin 7.2, electrolytes are within normal limits, BUN is 74, creatinine is 3.85. Patient has been lethargic for the most time, however she has been more alert for. Periods of time and yesterday she did tolerate nasal cannula trials, only requiring 1 L/m. Place the patient on nasal cannula at 1 L, as she is satting 100% on 2 L, she has not had much of an oral intake in the last few days. Objective - Vital Signs Vital signs: Vital Signs Temp 97.5 F L 06/17/20 08:00 Pulse 84 06/17/20 09:00 Resp 18 06/17/20 09:00 BP 119/62 06/16/20 19:00 Pulse Ox 94 L 06/17/20 09:00 Intake & Output 06/16/20 06/17/20 06/17/20 18:59 06:59 18:59 Intake Total 514.288 262.618 46.877 Output Total 3115 193 5 Balance -2600.712 69.618 41.877 Weight 206.43 kg 202.847 kg Intake: IV 504 253 46 0.9 pressure bag 39 33 6 Piperacillin-Tazobactam 3 145 .375 gm In Sodium Chloride 0.9% 100 ml @ 25 mls/hr IVPB Q12HR [facility] Rx #:[id number] Sodium Chloride 0.9% 1, 320 220 40 000 ml @ 20 mls/hr IV . Q24H [facility] Rx#:[id number] Intake, IV Titration 10.288 9.618 0.877 Amount Norepinephrine 32 mg In 10.288 9.618 0.877 Sodium Chloride 0.9% 218 ml @ 0.05 MCG/KG/MIN 4. 784 mls/hr IV .Q24H [facility] Rx#:[id number] Output: Chest Tube Drainage 40 100 Chest Tube Left Posterior 40 100 Chest Urine 75 93 5 Hemodialysis 3000 Other: Voiding Method Indwelling Catheter Indwelling Catheter ABP, PAP, CO, CI - Last Documented Arterial Blood Pressure 123/58 - Exam GENERAL EXAM: Lethargic but arousable to verbal stimuli very, supra-morbidly obese 70-year-old -[place] female on BiPAP support with pressures of 14 over 4, and FiO2 of 35% 91% comfortable in no apparent distress. Wearing BiPAP support intermittently, and bedtime HEAD: Normocephalic/atraumatic. EYES: Normal reaction of pupils, equal size. Conjunctiva pink, sclera white. NOSE: Clear with pink turbinates. THROAT: No erythema or exudates. NECK: No masses, no JVD, no thyroid enlargement, no adenopathy. CHEST: No chest wall deformity. Symmetrical expansion. Left chest tube is in place, to waterseal, with no evidence of air leak, with thin serosanguineous output in the Pleur-evac. Right subclavian temporary hemodialysis catheter in place inserted on 06/14/2020 LUNGS: Equal air entry with no crackles, wheeze, rhonchi or dullness. CVS: Regular rate and rhythm, normal S1 and S2, no gallops, no murmurs, no rubs ABDOMEN: Soft, nontender. No hepatosplenomegaly, normal bowel sounds, no guarding or rigidity. EXTREMITIES: No clubbing, 2+ lower extremity edema, involving thighs, lower legs, pedal edema, ankle edema, and some mild edema involving upper extremities, no cyanosis, 2+ pulses and upper and lower extremities. MUSCULOSKELETAL: Muscle strength and tone normal. SPINE: No scoliosis or deformity SKIN: No rashes CENTRAL NERVOUS SYSTEM: Lethargic, on BiPAP, but his eyes briefly, does not maintain eye contact, does not follow command. No focal deficits, tone is normal in all 4 extremities. - Labs CBC & Chem 7: 06/17/20 04:55 06/17/20 04:55 Labs: Abnormal Lab Results - Last 24 Hours (Table) 06/16/20 06/16/20 06/17/20 Range/Units 11:07 17:49 00:35 WBC (3.8-10.6) k/uL RBC (3.80-5.40) m/uL Hgb (11.4-16.0) gm/dL Hct (34.0-46.0) % MCHC (31.0-37.0) g/dL RDW (11.5-15.5) % Plt Count (150-450) k/uL Neutrophils # (1.3-7.7) k/uL Lymphocytes # (1.0-4.8) k/uL BUN (7-17) mg/dL Creatinine (0.52-1.04) mg/dL Glucose (74-99) mg/dL POC Glucose (mg/dL) 102 H 103 H 67 L (75-99) mg/dL 06/17/20 06/17/20 06/17/20 Range/Units 00:46 04:55 04:55 WBC 11.2 H (3.8-10.6) k/uL RBC 2.63 L (3.80-5.40) m/uL Hgb 7.2 L (11.4-16.0) gm/dL Hct 24.8 L (34.0-46.0) % MCHC 28.9 L (31.0-37.0) g/dL RDW 20.2 H (11.5-15.5) % Plt Count 72 L (150-450) k/uL Neutrophils # 10.0 H (1.3-7.7) k/uL Lymphocytes # 0.4 L (1.0-4.8) k/uL BUN 74 H (7-17) mg/dL Creatinine 3.85 H (0.52-1.04) mg/dL Glucose 105 H (74-99) mg/dL POC Glucose (mg/dL) 131 H (75-99) mg/dL Assessment and Plan Plan: Assessment: #1. Acute on chronic hypoxic respiratory failure, presented complete opacification of the left lung and large left-sided pleural effusion, transud ative in nature, the fluid was suspicious for chylothorax at one time, with significantly elevated triglycerides. Today on 06/15/2020 left-sided chest tube remains in place, with minimal output in the last 24 hours, no evidence of air leak, pleural fluid cultures were negative, cytology was negative On 06/16/2020 left-sided chest tube was placed to waterseal for 24 hours, left lung has remained reinflated, chest tube output has been minimal in the last 24 hours, with only 10 mL of serosanguineous fluid in the last 24 hours. Pleural fluid cytology and cultures have been negative #2. Acute left lower lobe pneumonia and possible septic shock on presentation, pleural fluid cultures have shown no growth, remains on empiric antibiotic coverage in the form of Zosyn #3. Morbid obesity with BMI of 74.2 #4. Chronic hypoxic respiratory failure, normally on 2 L per nasal cannula #5. Chronic kidney disease stage IV #6. Chronic gastritis #7. Chronic diastolic congestive heart failure #8. Anemia of chronic kidney disease #9. Nonalcoholic fatty liver disease #10. COPD, ex-smoker, presently inactive #11. Medical debility, patient is bedbound #12. Chronic gout #13. Obstructive sleep apnea syndrome #14. Status post left-sided chest tube thoracostomy on 06/10/2020 for re currence of left lung opacification #15. Chronic atrial fibrillation/flutter, not any chronic anticoagulation related to chronic anemia and recurrent episodes of bleeding #16. Mild to moderately impaired left ventricle systolic function with severe pulmonary hypertension #17. Secondary adrenal insufficiency related to pneumonia and sepsis #18. Hypothyroidism #19 Acute kidney injury, secondary to the ATN, related to cardiac arrest/hemodynamic instability, creatinine is continually worsening, and patient is in uric, right subclavian hemodialysis was inserted on 06/14/2020 and hemodialysis was initiated #20. Acute metabolic encephalopathy Plan: Today's chest x-ray has been reviewed, showing changes of continue CHF with pulmonary vessel congestion. We'll defer to CT surgery on the decision on whether or not the left-sided chest tube came discontinued there has been 100 mL of output in the last 24 hours, BiPAP support is needed, we'll place the patient on nasal cannula today, she is only requiring 1 L, however her mentation remains altered, she is lethargic, but arousable, we spoke to her daughter on the phone today, despite the medical treatment patient has not made significant progress, and she remains at high risk for further complications, and possibly reintubation and tracheostomy and PEG tube placement, the daughter would like to discuss this with other family members, she understands her mother's condition, at this time patient remains a full code, will continue with supportive treatment. May need to place NG tube with Dobbhoff tube for nutritional support. I performed a history & physical examination of the patient and discussed their management with my nurse practitioner, Perri Forrest. I reviewed the nurse practitioner's note and agree with the documented findings and plan of care. Lung sounds are positive for diminished breath sounds at the bases. The findings and the impression was discussed with the patient. I attest to the documentation by the nurse practitioner. Time with Patient: Less than 30
[2020-06-17] MEDS: LEVOTHYROXINE IVP 100 MCG/5 ML VIAL IV SCH (09:48)
[2020-06-17] MEDS: PIPERACILLIN-TAZOBACTAM 3.375 GM in SODIUM CHLORIDE 0.9% 100 ML IVPB SCH ×2 (09:54→21:30)
[2020-06-17] MEDS: SODIUM CHLORIDE 0.9% 1,000 ML IV SCH (09:54)
[2020-06-17] MEDS: METOPROLOL TARTRATE 5 MG/5 ML VIAL IVP SCH ×2 (09:55→21:45)
[2020-06-17] MEDS: DARBEPOETIN ALFA 60 MCG/0.3 ML SYRINGE SQ SCH (10:15)
[2020-06-17] MEDS: TRIAMCINOLONE 0.1% CREAM 80 GM TUBE TOPICAL SCH ×2 (10:16→21:30)
[2020-06-17 12:18] LABS: Glucose,Whole Blood 100 mg/dL (75-99)
--- NOTE | 2020-06-17 13:38 | P.PN ---
Subjective 70-year-old patient was chronic stable medical conditions include CHF EF 55 and 55%, morbid obesity, chronic kidney disease stage IV secondary to ne phrosclerosis, renal bone disease, anemia of chronic kidney disease, persistent atrial fibrillation, fatty liver, COPD, primary osteoarthritis, obstructive sleep apnea, chronic gout, on home oxygen, chronic medical debility at her baseline uses a lift a wheelchair. Patient is a resident at [facility]. Patient presents with increasing swelling about a week. Increase in shortness of breath. Appetite is okay. Bowel movements are okay. No fever no chills. Started on IV Lasix. Admitted with CHF exacerbation. Put on IV Lasix. On June 04 -was taken to for thoracentesis and it was a bit difficult by IR. Patient went into PEA cardiac arrest. intubated. Hypotensive. Moved to ICU. Thora-vent was placed. About 850 mL of pus-bloody fluid was obtained. [id number]. On the ventilator. Telemetry shows sinus rhythm. Left chest tube to suction. On IV levo fed and propofol. Tube feeding. Granddaughter at the bedside. 06/08/2020 Patient is currently mechanical ventilator and is being monitored in the ICU. Sedated. low dose levophed. Chest x-ray showed cardiomegaly with central vascular congestion and small to moderate sized bilateral pleural fluid collections with the left sided pleural drainage catheter. Bronchial fluid cultures negative so far. Laboratory data showed WBC 8.2, hemoglobin 7.0 and platelets 87 BUN 84 and creatinine 3.29 Albumin 2.2 06/09/2020 Patient remains on ventilator and is currently sedated. Patient is also on Levophed drip. Chest x-ray showed suspect some improvement in patient's volume status. There may be basilar effusions. Atelectasis, difficult to exclude pneumonia. Patient does have chest tube with minimal drainage. Laboratory data showed WBC 11.8, hemoglobin 7.9 and platelets 87 BUN 88 and creatinine 3.06 Pulmonary and nephrology is on board. 06/10/2020 Patient is currently extubated and is saturating well on oxygen via nasal cannula. Patient is otherwise awake alert and trying to communicate. Chest x-ray this morning showed improving aeration of the left especially in the upper and midlung after left-sided chest tube placement. Focal opacity remains at the left base as well as trace right effusion. 2D echocardiogram showed ejection fraction 40 to 45% there is severe tricuspid regurgitation present. Severe pulmonary hypertension. Left ventricle systolic pressure is 84.96 mmHg. Laboratory data showed WBC 13.2, hemoglobin 7.3 and platelets 83 BUN 100 and creatinine 2.97 06/11/2020 Patient is currently remained ICU. Awake alert but not communicating. Patient is off the ventilator. Currently on oxygen via nasal cannula. Patient is status post chest tube placement. Repeat chest x-ray showed lung seems expanded but left lower lobe remains consolidated. Patient is still on Levophed drip at low-dose. Patient went into A. fib with RVR and was started on amiodarone drip. Cardiology was consulted. Creatinine level is elevated. Nephrology is following. 06/12/2020 Patient is currently in MICU. Awake alert and oriented but communicating very slowly. Able to follow simple commands. Continued on Lasix drip. Patient is also reporting Levophed drip. Amiodarone drip due to atrial fibrillation with RVR. Chest x-ray showed persistent left-sided volume loss with worsening left lung opacity despite chest tube in place. Suggests worsening left-sided pleural effusion and associated left lung atelectasis and/or infiltrate. Patient is being continued on antibiotics in the form of Zosyn. Cardiology, pulmonary and nephrology is on board. Laboratory data showed WBC 23.2, hemoglobin 7.3, platelets 131 BUN 96 and creatinine 3.56 Urinalysis is negative for infection. Patient has been afebrile. 06/13/2020 Patient is currently remains in MICU. More awake and oriented and able to talk simple words. Denied any chest pain. No worsening shortness of breath. patient is currently on oxygen via nasal cannula. Patient was BiPAP in the morning. Chest x-ray showed cardiomegaly and interstitial prominence correlate for CHF with mild pulmonary vascular congestion. Improving aeration in the left with decreased but persistent moderate left pleural effusion with adjacent atelectasis and/or consolidation. Chest tube remains in place. Increasing small right effusion. remains on levophed. 06/14/2020 Patient says she is feeling better. Patient can use to have left-sided chest tube to wall suction there is a concern about chylothorax patient remains on IV Lasix drip, patient is also on IV hydrocortisone every 6 hours. Patient does have sick euthyroid syndrome TSH need to be repeated again. 06/15/2020 Patient is still has a chest tube which is draining. Patient went into hypercapnic respiratory failure yesterday for which patient was started on BiPAP patient was initiated on hemodialysis and is undergoing hemodialysis today 06/16/2020 Patient is quite a bit lethargic patient is off BiPAP at this time patient is still on hyperelastic cannula oxygen patient is undergoing hemodialysis today patient is a low-dose of norepinephrine. Can use to have a chest tube AST and ALP are bit worse. 06/17/2020 Patient is off BiPAP is on high flow nasal cannula oxygen at this time patient's norepinephrine was discontinued patient is undergoing hemodialysis on daily basis. Constitutional: Denied any fatigue denied any fever. Cardio vascular: denied any chest pain, palpitations Gastrointestinal denied any nausea vomiting Pulmonary: Denied any shortness of breath cough Neurologic denied any new focal deficits All inpatient medications were reviewed and appropriate changes in these medications as dictated in the interval history and assessment and plan. Objective - Vital Signs Vital signs: Vital Signs Temp 97.5 F L 06/17/20 08:00 Pulse 82 06/17/20 11:00 Resp 22 06/17/20 11:00 BP 119/62 06/16/20 19:00 Pulse Ox 94 L 06/17/20 11:00 Intake & Output 06/16/20 06/17/20 06/17/20 18:59 06:59 18:59 Intake Total 514.288 262.618 195.877 Output Total 3115 193 10 Balance -2600.712 69.618 185.877 Weight 206.43 kg 202.847 kg Intake: IV 504 253 195 0.9 pressure bag 39 33 15 Piperacillin-Tazobactam 3 145 100 .375 gm In Sodium Chloride 0.9% 100 ml @ 25 mls/hr IVPB Q12HR [facility] Rx #:[id number] Sodium Chloride 0.9% 1, 320 220 80 000 ml @ 20 mls/hr IV . Q24H [facility] Rx#:[id number] Intake, IV Titration 10.288 9.618 0.877 Amount Norepinephrine 32 mg In 10.288 9.618 0.877 Sodium Chloride 0.9% 218 ml @ 0.05 MCG/KG/MIN 4. 784 mls/hr IV .Q24H [facility] Rx#:[id number] Output: Chest Tube Drainage 40 100 Chest Tube Left Posterior 40 100 Chest Urine 75 93 10 Hemodialysis 3000 Other: Voiding Method Indwelling Catheter Indwelling Catheter Indwelling Catheter # Voids 0 ABP, PAP, CO, CI - Last Documented Arterial Blood Pressure 112/59 - Exam PHYSICAL EXAMINATION: GENERAL: The patient is bit lethargic off BiPAP not in any acute distress. Morbidly obese HEENT: Pupils are round and equally reacting to light. EOMI. No scleral icterus. No conjunctival pallor. Normocephalic, atraumatic. No pharyngeal erythema. No thyromegaly. CARDIOVASCULAR: S1 and S2 present. No murmurs, rubs, or gallops. PULMONARY: Chest is clear to auscultation, no wheezing or crackles. ABDOMEN: Soft, nontender, nondistended, normoactive bowel sounds. No palpable organomegaly. MUSCULOSKELETAL: No joint swelling or deformity. EXTREMITIES: No cyanosis, clubbing, does have pedal edema NEUROLOGICAL: Gross neurological examination did not reveal any focal deficits. SKIN: No rashes. - Labs CBC & Chem 7: 06/17/20 04:55 06/17/20 04:55 Labs: Abnormal Lab Results - Last 24 Hours (Table) 06/16/20 06/17/20 06/17/20 Range/Units 17:49 00:35 00:46 WBC (3.8-10.6) k/uL RBC (3.80-5.40) m/uL Hgb (11.4-16.0) gm/dL Hct (34.0-46.0) % MCHC (31.0-37.0) g/dL RDW (11.5-15.5) % Plt Count (150-450) k/uL Neutrophils # (1.3-7.7) k/uL Lymphocytes # (1.0-4.8) k/uL BUN (7-17) mg/dL Creatinine (0.52-1.04) mg/dL Glucose (74-99) mg/dL POC Glucose (mg/dL) 103 H 67 L 131 H (75-99) mg/dL 06/17/20 06/17/20 06/17/20 Range/Units 04:55 04:55 12:15 WBC 11.2 H (3.8-10.6) k/uL RBC 2.63 L (3.80-5.40) m/uL Hgb 7.2 L (11.4-16.0) gm/dL Hct 24.8 L (34.0-46.0) % MCHC 28.9 L (31.0-37.0) g/dL RDW 20.2 H (11.5-15.5) % Plt Count 72 L (150-450) k/uL Neutrophils # 10.0 H (1.3-7.7) k/uL Lymphocytes # 0.4 L (1.0-4.8) k/uL BUN 74 H (7-17) mg/dL Creatinine 3.85 H (0.52-1.04) mg/dL Glucose 105 H (74-99) mg/dL POC Glucose (mg/dL) 100 H (75-99) mg/dL Assessment and Plan Plan: Assessment and Plan Assessment: -s/p Cardiac arrest with PEA, patient was intubated and was extubated on the June 09, patient had complete opacification of the left lung and had pleural tap and presently at bedtime 2 the fluid was suspicious for chylothorax and the fluid was transudative nature -Acute hypoxic, hypercapnic respiratory failure-requiring ventilator, patient is off ventilatory support as mentioned above but the patient is presently on aspirin and oxygen. -Left-sided pleural effusion and consolidation and a possible pneumonia and patient is on IV antibiotics in form of Zosyn Status post chest tube placement, chest tube will be removed today on 06/17/2020 -New onset A. fib with RVR. -Hypotensive shock requiring pressor support. possibe Septic shock due to Pneumonia -Acute on Chronic congestive heart failure from diastolic dysfunction - Severe pulmonary hypertension and severe TR. - Acute kidney injury secondary to ATN secondary to cardiac arrest/hemodynamic instability. -Chronic kidney disease stage IV secondary to nephrosclerosis, patient will undergo catheter placement for possible dialysis -Morbid obesity BMI 75.2 -Chronic kidney disease renal bone disease -Anemia of chronic kidney disease, patient the hemoglobin did drop because of frequent blood draws and patient will receive 1 unit of PRBC transfusion today -Persistent atrial fibrillation, rate controlled Nonalcoholic fatty liver disease -COPD in an ex-smoker -Primary osteoarthritis -Obstructive sleep apnea -Chronic gout -Chronic hypoxic respiratory failure from COPD -Chronic medical debility and a baseline patient does use a lift to a wheelchair -Thoracentesis patient has a left-sided chest tube
[2020-06-17] MEDS: ASPIRIN 81 MG PO SCH (14:32)
[2020-06-17] MEDS: FOLIC ACID 1 MG TAB PO SCH (14:32)
--- NOTE | 2020-06-17 16:16 | PN ---
PROGRESS NOTE Patient is seen for followup for acute kidney injury on top of chronic kidney disease. Currently she is maintained on dialysis, mainly for volume overload. Patient does not have any significant urine output. She is currently awake. She is seen on hemodialysis, tolerating her treatment very well. Levophed is at a very low dose at about 2 mcg. The goal UF is about 3 L. The patient is awake. She is comfortable. She is communicating, but it is unclear if she comprehends well. She follows some commands. Meeting is scheduled later on today regarding CODE STATUS. Ideally patient is not an ideal candidate for long-term renal replacement therapy. PHYSICAL EXAMINATION: On examination today, blood pressure was 123/58, heart rate 84 per minute. She is afebrile. EXAMINATION OF THE HEART: S1 and S2. EXAMINATION OF LUNGS: Bilateral breath sounds are heard. Distant breath sounds and heart sounds. ABDOMEN: Examination of the abdomen reveals morbid obesity. No significant tenderness noted. Examination of lower extremities shows edema 3 to 4+ bilaterally. ANIMAL CARE SPECIALIST exam shows patient moving upper extremities. Difficult to assess lower extremity movement. LABS: Labs show sodium 141, potassium 4.9, chloride 107, BUN 74, creatinine 3.85, hemoglobin 7.2 g/dL. ASSESSMENT: 1. Acute kidney injury on top of chronic kidney disease, acute tubular necrosis versus cardiorenal, with poor urine output, currently maintained on dialysis. Patient is maintained on daily dialysis for now. 2. Severe volume overload, slowly improving with daily ultrafiltration with hemodialysis. No significant urine output. 3. Anemia. No active bleeding noted. Maintained on Aranesp, status post packed RBCs transfusion earlier. 4. Chronic kidney disease, stage 4, secondary to diabetic kidney disease. Baseline creatinine 2.7 to 3 mg/dL. 5. Pneumothorax with left-sided chest tube. 6. Status post cardiac arrest. PEA. PLAN: Maintain daily dialysis for now as long as patient tolerates. Continue to wean down the Levophed. Continue with midodrine. The patient is not an ideal candidate for long- term outpatient hemodialysis. MMODL / IJN: [id number] /
[2020-06-17] MEDS: CHOLECALCIFEROL 1,000 UNIT TAB PO SCH (16:39)
[2020-06-17 18:01] LABS: Glucose,Whole Blood 99 mg/dL (75-99)
[2020-06-17] MEDS: ATORVASTATIN 40 MG TAB PO SCH (21:36)
[2020-06-17] MEDS: NOREPINEPHRINE 32 MG in SODIUM CHLORIDE 0.9% 218 ML IV SCH (21:45)
[2020-06-18] MEDS: HYDROCORTISONE SUCCINATE 100 MG/2 ML VIAL IV SCH ×5 (00:21→23:31)
[2020-06-18 00:32] LABS: Glucose,Whole Blood 97 mg/dL (75-99)
[2020-06-18] MEDS: INSULIN ASPART (NovoLOG) 100 UNIT/ML VIAL SQ SCH ×5 (01:00→23:35)
[2020-06-18 05:17] LABS: Calcium 8.8 mg/dL (8.4-10.2); Potassium 4.7 mmol/L (3.5-5.1)
[2020-06-18 05:41] LABS: Anisocytosis Slight; HCT 23.8 % (34.0-46.0); Hypochromasia Marked; MCH 27.3 pg (25.0-35.0); MCHC 28.8 g/dL (31.0-37.0); MCV 94.8 fL (80.0-100.0); Macrocytosis Slight; Mean Platelet Volume 12.4; Poikilocytosis Slight; RBC 2.51 m/uL (3.80-5.40); WBC 10.4 k/uL (3.8-10.6)
[2020-06-18 05:51] LABS: HGB 6.9 gm/dL (11.4-16.0)
[2020-06-18 05:52] LABS: Platelet Count 72 k/uL (150-450)
[2020-06-18 06:18] LABS: Glucose,Whole Blood 90 mg/dL (75-99)
--- NOTE | 2020-06-18 07:56 | XR ---
EXAMINATION TYPE: XR chest 1V portable DATE OF EXAM: 06/18/2020 COMPARISON: June 17, 2020 HISTORY: SOB, Follow Up FINDINGS: Left basilar chest tube has been removed without evidence for sizable pneumothorax. Central venous li bailey remain unchanged. No change in bibasilar opacities. Stable appearance of the cardio-mediastinal structures at this time. Pleural effusion unchanged. IMPRESSION: 1. Stable portable chest. Clinical correlation and follow up until resolution is recommended.
[2020-06-18] MEDS: IPRATROPIUM-ALBUTEROL 3 ML NEB INHALATION SCH (07:59)
--- NOTE | 2020-06-18 08:12 | P.PN ---
Subjective Progress Note Date: 06/18/20 Principal diagnosis: Pulmonary hypertension his is a 70-year-old female past medical history significant for morbid obesity, chronic kidney disease, hypertension, anemia, previous tobacco dependence, stability residing in an [facility], diastolic heart failure with ejection fraction 40- 45% and persistent atrial fibrillation who had presented for increasing swelling and shortness breath or the prior week and 06/03/2020. She had initial ultrasound on 06/10/2020 which showed ejection fraction 40-45% with severe pulmonary hypertension at 89 with severe right ventricular and right atrial enlargement and severe tricuspid regurgitation. Patient initially had left lung white out and was initially intubated. She had chest tube placed for left lung effusion with some improvement. 06/16/2020 Patient underwent dialysis yesterday and is currently undergoing dialysis today with goal of 3 L to be taken off. She remains obtunded and nonresponsive to verbal stimuli. She remains in atrial fibrillation with controlled ventricular response with heart rates in the 70s. She did require some increase in her levophed while on dialysis yesterday however has been maintaining a similar rate of pressors this morning. Hemoglobin somewhat downtrending to 7.0 this morning. She has been lethargic and therefore has not been able to take her medications by mouth. She was placed on BiPAP for increasing CO2. 06/17/2020 Patient again underwent dialysis yesterday with approximately 3 L taken off. Per nursing patient scheduled for dialysis again today. She remains in A. fib with controlled response. She's been on a low-dose of the Levophed however has been unable to take anything by mouth such as her Midodrine. Remains on BiPAP. She remains lethargic and alert and oriented 1. 06/18/2020 Patient seen and examined. Patient off of BiPAP and moaning and able to say her name however not able to answer my questions. ICU had discussion with daughter yesterday about goals of care and patient remains full code at this time. Still undergoing intermittent hemodialysis. DIAGNOSTICS Laboratory reviewed, BUN is 102, creatinine is 3.87, AST and ALT are mildly elevated at 68 and 51, hemoglobin is 7.2, white blood cell count 15.3. Current cardiac medications include amiodarone 400 mg twice a day, aspirin 81 mg daily, Lipitor 40 mg daily, Cortef 50 mg IV every 6 hours, Lopressor 5 mg IV push every 12 hours, Midrin 10 mg 3 times a day. REVIEW OF SYSTEMS At the time of my exam: Patient extremely lethargic and not answering questions. PHYSICAL EXAMINATION Blood pressure 95/56 on the Levophed heart rate 71 afebrile and maintaining oxygen saturation on BiPAP CONSTITUTIONAL: No apparent distress, ill-appearing, lethargic and not responding to verbal stimuli, morbidly obese HEENT: Head is normocephalic. Pupils are equal, round. Sclerae anicteric. Mucous membranes of the mouth are moist. No carotid bruit. CHEST EXAMINATION: Left worse than right rhonchi and decreased breath sounds at the left base. HEART EXAMINATION: Irregularly irregular rate and rhythm. Normal S1-S2, positive RV heave, positive 3/6 systolic ejection murmur ABDOMEN: Soft, nontender. Positive bowel sounds. EXTREMITIES: 2+ peripheral pulses, no lower extremity edema and no calf tenderness. NEUROLOGIC EXAMINATION: Patient is somnolent, lethargic ASSESSMENT 1. Persistent atrial fibrillation, not anticoagulated because of recurrent episodes of bleeding 2. Morbid obesity 3. Acute on chronic diastolic heart failure with ejection fraction 40-45% from echo 06/10/2020 4. Chronic kidney disease, recently started hemodialysis 5. Anemia 6. History of sleep apnea 7. Severe pulmonary hypertension with RVSP of 85 on echo from 06/10/2020 with severe right ventricle and right atrial enlargement and severe tricuspid regurgitation 8. Possible cardiorenal syndrome with decompensated mainly right heart failure with worsening creatinine PLAN Continue with current supportive care. Patient remains lethargic despite multiple days of hemodialysis. Hemoglobin down to 6.9 and we will defer to ICU, likely transfuse if family agreeable. Prognosis poor. Objective - Vital Signs Vital signs: Vital Signs Temp 97.9 F 06/18/20 01:00 Pulse 80 06/18/20 07:00 Resp 22 06/18/20 07:00 BP 107/68 06/18/20 07:00 Pulse Ox 98 06/18/20 07:00 Intake & Output 06/17/20 06/18/20 06/18/20 18:59 06:59 18:59 Intake Total 359.381 336 23 Output Total 28 7 0 Balance 331.381 329 23 Weight 199.036 kg Intake: IV 356 336 23 0.9 pressure bag 36 36 3 Piperacillin-Tazobactam 3 100 100 .375 gm In Sodium Chloride 0.9% 100 ml @ 25 mls/hr IVPB Q12HR [facility] Rx #:[id number] Sodium Chloride 0.9% 1, 220 200 20 000 ml @ 20 mls/hr IV . Q24H [facility] Rx#:[id number] Intake, IV Titration 3.381 Amount Norepinephrine 32 mg In 3.381 Sodium Chloride 0.9% 218 ml @ 0.05 MCG/KG/MIN 4. 784 mls/hr IV .Q24H [facility] Rx#:[id number] Output: Urine 28 7 0 Other: Voiding Method Indwelling Catheter Indwelling Catheter # Voids 0 ABP, PAP, CO, CI - Last Documented Arterial Blood Pressure 108/65 - Labs CBC & Chem 7: 06/18/20 04:15 06/18/20 04:15 Labs: Abnormal Lab Results - Last 24 Hours (Table) 06/17/20 06/18/20 06/18/20 Range/Units 12:15 04:15 04:15 RBC 2.51 L (3.80-5.40) m/uL Hgb 6.9 L* (11.4-16.0) gm/dL Hct 23.8 L (34.0-46.0) % MCHC 28.8 L (31.0-37.0) g/dL RDW 20.0 H (11.5-15.5) % Plt Count 72 L (150-450) k/uL BUN 60 H (7-17) mg/dL Creatinine 3.34 H (0.52-1.04) mg/dL POC Glucose (mg/dL) 100 H (75-99) mg/dL
--- NOTE | 2020-06-18 08:27 | P.PN ---
Subjective Progress Note Date: 06/18/20 Principal diagnosis: Left pleural effusion, acute hypercapnic respiratory failure, acute on chronic diastolic heart failure. Past medical history significant for chronic atrial fi brillation on no anticoagulation due to history of bleeding, chronic hypoxic respiratory failure on home oxygen, morbid obesity, hypertension, stage IV chronic kidney disease, chronic anemia, obstructive sleep apnea with home CPAP use, previous tobacco dependence, medical debility, osteoarthritis. Status post day #8 left pleural chest tube placement, left pleural chest tube removed yesterday 06/17/2020. The patient was seen in follow-up today on 06/18/2020 at her bedside in the intensive care unit. The patient is awake, alert and oriented 3, and is in no acute distress. She denies any complaints of pain or shortness of breath. Oxygen saturations are 95% on 1 L nasal cannula. Left pleural chest tube was removed yesterday 06/17/2020 without incident. Dressing is clean, dry and in place. Bedside telemetry showing atrial fibrillation heart rate 89. Hemodialysis as was completed yesterday with 3000 mL of fluid removed. Objective - Vital Signs Vital signs: Vital Signs Temp 97.9 F 06/18/20 01:00 Pulse 80 06/18/20 07:00 Resp 22 06/18/20 07:00 BP 107/68 06/18/20 07:00 Pulse Ox 98 06/18/20 07:00 Intake & Output 06/17/20 06/18/20 06/18/20 18:59 06:59 18:59 Intake Total 359.381 336 23 Output Total 28 7 0 Balance 331.381 329 23 Weight 199.036 kg Intake: IV 356 336 23 0.9 pressure bag 36 36 3 Piperacillin-Tazobactam 3 100 100 .375 gm In Sodium Chloride 0.9% 100 ml @ 25 mls/hr IVPB Q12HR [facility] Rx #:[id number] Sodium Chloride 0.9% 1, 220 200 20 000 ml @ 20 mls/hr IV . Q24H [facility] Rx#:[id number] Intake, IV Titration 3.381 Amount Norepinephrine 32 mg In 3.381 Sodium Chloride 0.9% 218 ml @ 0.05 MCG/KG/MIN 4. 784 mls/hr IV .Q24H [facility] Rx#:[id number] Output: Urine 28 7 0 Other: Voiding Method Indwelling Catheter Indwelling Catheter # Voids 0 ABP, PAP, CO, CI - Last Documented Arterial Blood Pressure 108/65 - Constitutional General appearance: Present: cooperative, morbidly obese, no acute distress - EENT Eyes: Present: PERRLA. Absent: scleral icterus ENT: Present: hearing grossly normal - Neck Details: Neck is supple, no JVD. - Respiratory Details: Lung sounds essentially diminished throughout. No wheezes, rhonchi or crackles. Respirations are symmetrical and nonlabored. Oxygen saturation is 95% on 1 L nasal cannula. - Cardiovascular Details: Irregular rhythm and controlled rate. S1 and S2 present, negative for S3, gallop or murmur. Generalized peripheral edema. Bedside telemetry showing atri al fibrillation heart rate 89 BPM. - Gastrointestinal Gastrointestinal Comment(s): Abdomen is soft, nontender and nondistended. Morbidly obese. Active bowel sounds present in all 4 abdominal quadrants. - Genitourinary Genitourinary Comment(s): Arteaga catheter for accurate I&O. Hemodialysis port in place to her right chest, dressing clean, dry and intact. Hemodialysis completed yesterday 06/17/2020 with 3000 mL of fluid removed. - Integumentary Integumentary Comment(s): Skin is warm and dry. No clubbing or cyanosis is present. - Neurologic Neurologic: Present: CNII-XII intact - Musculoskeletal Musculoskeletal: Present: generalized weakness, strength equal bilaterally - Allied health notes Allied health notes reviewed: nursing - Labs CBC & Chem 7: 06/18/20 04:15 06/18/20 04:15 Labs: Abnormal Lab Results - Last 24 Hours (Table) 06/17/20 06/18/20 06/18/20 Range/Units 12:15 04:15 04:15 RBC 2.51 L (3.80-5.40) m/uL Hgb 6.9 L* (11.4-16.0) gm/dL Hct 23.8 L (34.0-46.0) % MCHC 28.8 L (31.0-37.0) g/dL RDW 20.0 H (11.5-15.5) % Plt Count 72 L (150-450) k/uL BUN 60 H (7-17) mg/dL Creatinine 3.34 H (0.52-1.04) mg/dL POC Glucose (mg/dL) 100 H (75-99) mg/dL - Imaging and Cardiology Chest x-ray: report reviewed, image reviewed Assessment and Plan Assessment: 1. Left pleural effusion, S/P aborted thoracentesis, placement of Thoravent, cytology negative, fluid transudative in nature, status post left thoracostomy tube placement 2. Acute hypercapneic respiratory failure requiring mechanical ventilation, now on nasal cannula 3. Acute on chronic diastolic heart failure 4. Chronic atrial fibrillation on no anticoagulation due to history of bleeding 5. Chronic hypoxic respiratory failure, on home oxygen 6. Morbid obesity 7. History of hypertension 8. Stage IV chronic kidney disease 9. Chronic anemia 10. Obstructive sleep apnea with home Cpap use 11. Previous history of tobacco dependence 12. Medical debility, resides in [facility] 13. Osteoarthritis Plan: 1. Wean O2 as tolerated. Bronchodilators, norepinephrine drip, antibiotics per pulmonology/critical care medicine recommendations. 2. Increase activity as tolerated. 4. We will continue to follow the patient on an as-needed basis. 5. Management of other comorbidities per primary care service, other consultants. Time with Patient: Less than 30
--- NOTE | 2020-06-18 08:44 | P.PN ---
Subjective Progress Note Date: 06/18/20 Principal diagnosis: Acute left lung opacification 70-year-old female patient, [facility] resident who was referred back to the emergency department because of worsening shortness of breath and hypoxemia. The patient had significant amount of weight gain in the order of 11 pounds over this past week. She also reported worsening lower extremity edema. She was unable to ambulate. She is currently bedbound. She is morbidly obese with a BMI of 34.2. No fever no chills. No aspiration. She has a mild cough. No chest pain. The chest x-rays showing complete opacification of the left lung without any significant shift of the trachea or volume loss. The left mainstem bronchus is currently off. White cell count 9.3 with hemoglobin of 7.9. Coagulation profile is within normal. 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 Serum bicarb is 29 with a sodium of 138. The liver functions is on essentially within normal limits. Albumin is at 3.3 with a total protein of 6.9. ProBNP level was 11,300. Currently, the patient is on 2 L of oxygen by nasal cannula. Pulse ox and order of 97%. Long with stage IV kidney disease secondary to do hypertensive nephrosclerosis. She also has chronic anemia, chronic proximal atrial fibrillation, COPD, osteoarthritis, obstructive sleep apnea, gout and she Zyvox and dependent and she has home O2. She is medically debilitated and she is a left and a walker. She is a resident of a [facility]. During her most recent hospitalization, the anemia was further worked up by EGD EGD showed mild gastritis. There was mild duodenitis. There was a small hiatal hernia. The patient is seen today 06/03/2020 in follow-up on the selective care unit. She is awake and alert in no acute distress. Currently resting flat in bed. Maintaining O2 saturation in the mid 90s on 2 L/m per nasal cannula. She's been afebrile. Was unable to tolerate a computed tomography scan of the chest yesterday. Sodium 138. Potassium 6.0. Creatinine 3.54. She remains on Lasix 80 mg IV every 12 hours. On 06/04/2020 patient seen in follow-up on selective care unit. She is resting comfortably in bed. She appears to be in no acute distress, she is on 2 L of oxygen her pulse ox is 92-100%, hemodynamically she stable, no couplets or chest pain, she's been afebrile, yesterday she had unsuccessful attempt at ultrasound- guided left thoracentesis, and patient was experiencing a lot of discomfort when the staff was trying to position her for the thoracentesis, and the procedure was aborted. Electrolytes are within normal limits, BUN was 96, creatinine was 3.74. She remains on diuretics 40 mg every 12 hours, her lower extremity edema slightly improved. Lung sounds reveal absent breath sounds on the left, and clear diminished breath sounds on the right, no cough or congestion. No altered mentation. Follow-up chest x-ray today shows stable findings complete opacified left hemithorax without mediastinal shift. On 06/14/2020 patient seen in follow-up in the intensive care unit, she is awake and alert, she is oriented 3, no evidence of distress, she is currently on 5 L of oxygen and the pulse ox of 98%, she has been afebrile, respirations are nonlabored, lung sounds are clear, diminished at the bases, left-sided chest tube remains in place to wall suction, and there has been 150 mL of serosanguineous output in the last 24 hours. No evidence of air leak. Today's chest x-ray shows no evidence of a sizable pneumothorax. Pleural fluid cultures have shown no growth, blood culture was negative. IV fluids include Lasix at 10 mg per hour, Levaquin fed is at 22 mics per minute, and 0.9 normal saline at a rate of 20 ML per hour, patient has been in positive fluid balance over the last 24 hours of 726 ML. Still has quite significant edema involving upper and lower extremities. Her cortisol level was 20, and we will add IV hydrocortisone 50 mg every 6 hours. TSH was 5.72, and patient will be started on thyroid hormone replacement. Patient remains on empiric antibiotics in the form of Zosyn. She remains in atrial fibrillation/atrial flutter, with the controlled rates. Today's labs have been reviewed, renal profile slightly bumped up, with BUN of 102, and creatinine of 3.87,, Celexa lites within normal limits, white blood cell count is trending down, down to 15.3, hemoglobin is 7.2 On 06/15/2020 patient seen in follow-up in the intensive care unit, she appears to be more lethargic on today's exam although she opens eyes to verbal stimuli and nods her head appropriately to yes or no questions. Overnight she was placed on BiPAP support, with pressures of 12 and 5 and 40%. This morning his blood gases show pO2 of 82, P CO2 of 73, and pH of 7.15. BiPAP settings were adjusted, and current pressures are 14 over 4 and FiO2 of 35%. Repeat blood gases showed pO2 of 60, pCO2 of 60, and pH of 7.212. Current drips include 0.9 normal saline at a rate of 20, Lasix drip at 15 mg per hour, however patient has not produced much urine, and at this point she is practically and uric. We will head is currently infusing at a rate of 14 mics per minute. Renal function continues to worsen, with B1 up to 102, and creatinine of 4.45. Patient had a right subclavian hemodialysis catheter placed yesterday by vascular surgery, with plans of initiating hemodialysis today. Labs have been reviewed, showing white blood cell count of 14.4, hemoglobin of 6.8, platelet count of 81, potassium is 5.3, the rest of the electrolytes are within normal limits, he is up to 128, ALT is 89, alkaline phosphatase is 118. Microbiology has been reviewed, showing no growth, blood cultures or pleural fluid cultures. Cytology the left pleural fluid Was negative for cells diagnostic of neoplasm. On 06/16/2020 patient seen in follow-up in the intensive care unit, she is lethargic today, she barely opens eyes to repeated verbal and tactile stimulation, she is not following command, she has remained on BiPAP support for last 24 hours, on pretty much on a continuous basis, her BiPAP settings are 14 over 4, and FiO2 of 30%. Yesterday patient was started on hemodialysis and 25 L of fluid was removed, today she is having hemodialysis treatment again with the goal of removing 3 L. Hemodynamically has improved, and she is on norepinephrine, however we were able to significantly wean down the dose of norepinephrine and is currently running at 2 mics per minute, 0.9 normal saline is running at 20 ML per hour, patient has been nothing by mouth related to being BiPAP dependent, and being lethargic. Left sided chest tube remains in place we place a to waterseal 24 hours ago, there is no evidence of air leak, today's chest x-ray has been reviewed showing persistent cardiomegaly with small bilateral pleural effusions and left greater than right basilar acute atelectasis and/or infiltrate. These labs have been reviewed, showing white blood cell, 10.1, hemoglobin is 7.0, electrolytes were within normal limits, renal profile slightly improved, BUN down to 88, and creatinine of 4.25. AST has trended up, up to 191, ALT is 137, total bilirubin is 1.2, within normal limits, patient has been afebrile, is still quite edematous, in her lower extr emities, and upper extremities. The catheter is in, and she is only producing 5-10 ML per hour. Her tota net fluid balance is -2 L over the last 24 hours. Renal fluid and blood cultures have shown no growth. Cytology of the left pleural fluid was negative for cells diagnostic of neoplasm On 06/17/2020 patient seen in follow-up in the intensive care unit. She is lethargic today, she remains on BiPAP support, with pressures of 14 over 4, and FiO2 of 30%, IV fluids 0.9 normal saline at a rate of 20 ML per hour, and Levaquin fed was discontinued this morning at 7:00. Current blood pressure is 123/58, patient is in A. fib which is chronic for her, with a controlled rate, at 76 BPM. Left chest tube has put out 100 mL of thin serous sinus output in last 24 hours, today's chest x-ray has been reviewed showing continue CHF with pulmonary congestion, small pleural effusions with patchy bibasilar atelectasis or consolidation or patchy pulmonary edema, patient had hemodialysis treatment for last 2 days. Yesterday 2.5 L of fluid was removed, today 3 L of fluid was removed. Today's blood work shows white cell count of 11.2, hemoglobin 7.2, electrolytes are within normal limits, BUN is 74, creatinine is 3.85. Patient has been lethargic for the most time, however she has been more alert for. Periods of time and yesterday she did tolerate nasal cannula trials, only requiring 1 L/m. Place the patient on nasal cannula at 1 L, as she is satting 100% on 2 L, she has not had much of an oral intake in the last few days. On 06/18/2020 patient seen in follow-up in intensive care unit. She is more awake on today's exam, still intermittently confused, with fluctuating RASS/CAM- ICU score. However she is verbalizing more, she is answering simple questions, when asked if she had given a thought about what she would want done in case of further clinical deterioration, and if she would want to be placed back on the ventilator support, the patient stated "No, I want to be left alone". She apparently slept very little last night, she did not wear BiPAP support, she is currently 1-1/2 L of oxygen her pulse ox is 98%, hemodynamically she stable, levo fed has been off since yesterday at 11:00 in the morning. She is afebrile. Today's chest x-ray shows interval removal of the left chest tube without evidence for sizable pneumothorax. Today's labs have been reviewed, showing w colette blood cell, 10.4, hemoglobin of 6.9, Dr. palm were within normal limits, BUN 60, creatinine is 3.34, patient had hemodialysis again yesterday, and 3 L of fluids were removed. Blood and pleural fluid cultures remained negative. On today's labs hemoglobin 6.9, there is no sign of bleeding, hold off on transfusion today Objective - Vital Signs Vital signs: Vital Signs Temp 97.9 F 06/18/20 01:00 Pulse 80 06/18/20 07:00 Resp 22 06/18/20 07:00 BP 107/68 06/18/20 07:00 Pulse Ox 98 06/18/20 07:00 Intake & Output 06/17/20 06/18/20 06/18/20 18:59 06:59 18:59 Intake Total 359.381 336 23 Output Total 28 7 0 Balance 331.381 329 23 Weight 199.036 kg Intake: IV 356 336 23 0.9 pressure bag 36 36 3 Piperacillin-Tazobactam 3 100 100 .375 gm In Sodium Chloride 0.9% 100 ml @ 25 mls/hr IVPB Q12HR [facility] Rx #:[id number] Sodium Chloride 0.9% 1, 220 200 20 000 ml @ 20 mls/hr IV . Q24H [facility] Rx#:[id number] Intake, IV Titration 3.381 Amount Norepinephrine 32 mg In 3.381 Sodium Chloride 0.9% 218 ml @ 0.05 MCG/KG/MIN 4. 784 mls/hr IV .Q24H [facility] Rx#:[id number] Output: Urine 28 7 0 Other: Voiding Method Indwelling Catheter Indwelling Catheter # Voids 0 ABP, PAP, CO, CI - Last Documented Arterial Blood Pressure 108/65 - Exam GENERAL EXAM: Awake, oriented to person, able to verbally answer, has been noted fluctuating confusion, supra-morbidly obese 70-year-old -[place] female on 1-1/2 L of oxygen with pulse ox of 98%, comfortable in no apparent distress. Wearing BiPAP support intermittently, and bedtime HEAD: Normocephalic/atraumatic. EYES: Normal reaction of pupils, equal size. Conjunctiva pink, sclera white. NOSE: Clear with pink turbinates. THROAT: No erythema or exudates. NECK: No masses, no JVD, no thyroid enlargement, no adenopathy. CHEST: No chest wall deformity. Symmetrical expansion. Left chest tube has been removed. Right subclavian temporary hemodialysis catheter in place inserted on 06/14/2020 LUNGS: Equal air entry with no crackles, wheeze, rhonchi or dullness. CVS: Regular rate and rhythm, normal S1 and S2, no gallops, no murmurs, no rubs ABDOMEN: Soft, nontender. No hepatosplenomegaly, normal bowel sounds, no guarding or rigidity. EXTREMITIES: No clubbing, 2+ lower extremity edema, involving thighs, lower legs, pedal edema, ankle edema, and some mild edema involving upper extremities, no cyanosis, 2+ pulses and upper and lower extremities. MUSCULOSKELETAL: Muscle strength and tone normal. SPINE: No scoliosis or deformity SKIN: No rashes CENTRAL NERVOUS SYSTEM: She is awake, she is oriented 1, she is able to verbally respond to questions, has been noted to be intermittently confused. No focal deficits, tone is normal in all 4 extremities. - Labs CBC & Chem 7: 06/18/20 04:15 06/18/20 04:15 Labs: Abnormal Lab Results - Last 24 Hours (Table) 06/17/20 06/18/20 06/18/20 Range/Units 12:15 04:15 04:15 RBC 2.51 L (3.80-5.40) m/uL Hgb 6.9 L* (11.4-16.0) gm/dL Hct 23.8 L (34.0-46.0) % MCHC 28.8 L (31.0-37.0) g/dL RDW 20.0 H (11.5-15.5) % Plt Count 72 L (150-450) k/uL BUN 60 H (7-17) mg/dL Creatinine 3.34 H (0.52-1.04) mg/dL POC Glucose (mg/dL) 100 H (75-99) mg/dL Assessment and Plan Plan: Assessment: #1. Acute on chronic hypoxic respiratory failure, presented complete opacification of the left lung and large left-sided pleural effusion, transudative in nature, the fluid was suspicious for chylothorax at one time, with significantly elevated triglycerides. Today on 06/15/2020 left-sided chest tube remains in place, with minimal output in the last 24 hours, no evidence of air leak, pleural fluid cultures were negative, cytology was negative On 06/16/2020 left-sided chest tube was placed to waterseal for 24 hours, left lung has remained reinflated, chest tube output has been minimal in the last 24 hours, with only 10 mL of serosanguineous fluid in the last 24 hours. Pleural fluid cytology and cultures have been negative On 06/18/2020 patient is seen in follow-up, did not require BiPAP support in the last 24 hours, mentation has improved, patient is able to verbally respond, but still intermittently confused. Currently on 1-1/2 L of oxygen pulse ox is 98%. Left chest tube was removed on 06/17/2020, on today's chest x-ray there is no evidence of pneumothorax. #2. Acute left lower lobe pneumonia and possible septic shock on presentation, pleural fluid cultures have shown no growth, remains on empiric antibiotic coverage in the form of Zosyn #3. Morbid obesity with BMI of 74.2 #4. Chronic hypoxic respiratory failure, normally on 2 L per nasal cannula #5. Chronic kidney disease stage IV #6. Chronic gastritis #7. Chronic diastolic congestive heart failure #8. Anemia of chronic kidney disease #9. Nonalcoholic fatty liver disease #10. COPD, ex-smoker, presently inactive #11. Medical debility, patient is bedbound #12. Chronic gout #13. Obstructive sleep apnea syndrome #14. Status post left-sided chest tube thoracostomy on 06/10/2020 for recurrence of left lung opacification #15. Chronic atrial fibrillation/flutter, not any chronic anticoagulation related to chronic anemia and recurrent episodes of bleeding #16. Mild to moderately impaired left ventricle systolic function with severe pulmonary hypertension #17. Secondary adrenal insufficiency related to pneumonia and sepsis #18. Hypothyroidism #19 Acute kidney injury, secondary to the ATN, related to cardiac arrest/hemodynamic instability, creatinine is continually worsening, and patient is in uric, right subclavian hemodialysis was inserted on 06/14/2020 and hemodialysis was initiated #20. Acute metabolic encephalopathy, improving, patient on today's exam still intermittent confused, but she is more awake, and verbally responding Plan: Continue current medical treatment, patient will have another hemodialysis treatment today, will hold off on blood transfusion, no active signs of bleeding, hemodynamically she stable, she has been off vasopressor support for close to 24 hours. Mentation seems to be improving, although patient is still intermittent confused, but today she is verbally responding, and appears to be more alert. Yesterday we spoke to the patient's daughter, the decision has still not been made in terms of patient's CODE STATUS, she remains a full code at this time, personally she verbalizes that she just wants to be left alone. Speech evaluation today, if she fails will proceed with Dobbhoff tube placement and initiate tube feedings. Prognosis remains extremely guarded, try to touch base with the patient's family again, in terms of decision on the CODE STATUS, we'll continue supportive treatment, would be very difficult to wean this patient off the ventilator support if she were to become reintubated I performed a history & physical examination of the patient and discussed their management with my nurse practitioner, Perri Forrest. I reviewed the nurse practitioner's note and agree with the documented findings and plan of care. Lung sounds are positive for diminished breath sounds at the bases. The findi ngs and the impression was discussed with the patient. I attest to the documentation by the nurse practitioner. Time with Patient: Greater than 30
[2020-06-18] MEDS: MIDODRINE 5 MG TAB PO SCH ×3 (08:57→16:20)
[2020-06-18] MEDS: allopurinoL 100 MG TAB PO SCH (08:57)
[2020-06-18] MEDS: AMIODARONE 200 MG TAB PO SCH ×2 (08:58→21:10)
[2020-06-18] MEDS: NON FORMULARY DRUG (Linaclotide [Linzess] 145 MCG) PO SCH (08:58)
[2020-06-18] MEDS: CALCIUM ACETATE 667 MG TAB PO SCH (08:58)
[2020-06-18] MEDS: METOPROLOL TARTRATE 25 MG TAB PO SCH (09:11)
[2020-06-18] MEDS: SODIUM CHLORIDE 0.9% 1,000 ML IV SCH (09:24)
[2020-06-18] MEDS: LEVOTHYROXINE IVP 100 MCG/5 ML VIAL IV SCH (09:24)
[2020-06-18] MEDS: TRIAMCINOLONE 0.1% CREAM 80 GM TUBE TOPICAL SCH ×2 (09:28→21:11)
[2020-06-18] MEDS: PIPERACILLIN-TAZOBACTAM 3.375 GM in SODIUM CHLORIDE 0.9% 100 ML IVPB SCH ×2 (09:28→21:10)
[2020-06-18] MEDS: METOPROLOL TARTRATE 5 MG/5 ML VIAL IVP SCH ×2 (11:07→23:28)
[2020-06-18] MEDS: FOLIC ACID 1 MG TAB PO SCH (11:07)
[2020-06-18] MEDS: ASPIRIN 81 MG PO SCH (11:07)
[2020-06-18 11:11] VITALS: BMI 73.0
[2020-06-18 11:39] LABS: Glucose,Whole Blood 89 mg/dL (75-99)
--- NOTE | 2020-06-18 12:06 | PN ---
PROGRESS NOTE Patient is seen for followup for acute kidney injury on top of chronic kidney disease. She has been started on dialysis this admission for worsening renal failure as well as volume overload. The patient has been receiving daily treatments. She has been tolerating UF of about 3 L and currently she is off Levophed. This morning patient is more awake. She is following commands. She will have a swallowing evaluation done. Urine output has been minimal. However, this morning, she was noticed to have about 15- 20 mL of urine for the last few hours. The code status was discussed with daughter and at this point she remains FULL CODE. PHYSICAL EXAMINATION: Patient is comfortable, awake. She is not in any acute distress. Blood pressure 117/70, heart rate 77 per minute. She is afebrile./ Examination of the heart S1, S2. Examination of the lungs, bilateral breath sounds are heard. Abdomen is soft. Morbidly obese. Examination of lower extremities shows edema 3+ bilaterally. [employer] exam grossly intact. Patient is moving all 4 extremities. LABS: Show hemoglobin 6.9 sodium 138, potassium 4.7, BUN 60, creatinine 3.34. ASSESSMENT: 1. Acute kidney injury on top of chronic kidney disease mostly acute tubular necrosis, initially oliguric currently with improving urine output. However, patient is hemodialysis dependent. She is receiving daily treatments. We will plan for another treatment tomorrow with ultrafiltration of about 3 L as tolerated. 2. Anemia. No active bleeding noted at this time. Patient is maintained on Aranesp. She is status post IV iron as well as packed RBCs transfusion. 3. Severe volume overload, currently improving. 4. Cardiomyopathy with ejection fraction 40%-45%. 5. Congestive heart failure, acute on top of chronic, with mainly systolic with severely dilated right ventricle and severe pulmonary hypertension. 6. Generalized debility. 7. Morbid obesity. 8. Obstructive sleep apnea and hypercapnic respiratory failure, currently improved. PLAN: Continue daily dialysis. The patient is not an ideal candidate for long-term renal replacement therapy. However, at this time she is off pressors and has been tolerating treatments fairly well. She remains FULL CODE. We will maintain aggressive medical care at this point. MMODL / IJN: [id number] /
--- NOTE | 2020-06-18 13:44 | P.PN ---
Subjective Progress Note Date: 06/18/20 Principal diagnosis: 70-year-old patient was chronic stable medical conditions include CHF EF 55 and 55%, morbid obesity, chronic kidney disease stage IV secondary to nephroscleros is, renal bone disease, anemia of chronic kidney disease, persistent atrial fibrillation, fatty liver, COPD, primary osteoarthritis, obstructive sleep apnea, chronic gout, on home oxygen, chronic medical debility at her baseline uses a lift a wheelchair. Patient is a resident at [facility]. Patient presents with increasing swelling about a week. Increase in shortness of breath. Appetite is okay. Bowel movements are okay. No fever no chills. Started on IV Lasix. Admitted with CHF exacerbation. Put on IV Lasix. On June 04 -was taken to for thoracentesis and it was a bit difficult by IR. Patient went into PEA cardiac arrest. intubated. Hypotensive. Moved to ICU. Thora-vent was placed. About 850 mL of pus-bloody fluid was obtained. [id number]. On the ventilator. Telemetry shows sinus rhythm. Left chest tube to suction. On IV levo fed and propofol. Tube feeding. Maxime rodriguez at the bedside. 06/08/2020 Patient is currently mechanical ventilator and is being monitored in the ICU. Sedated. low dose levophed. Chest x-ray showed cardiomegaly with central vascular congestion and small to moderate sized bilateral pleural fluid collections with the left sided pleural drainage catheter. Bronchial fluid cultures negative so far. Laboratory data showed WBC 8.2, hemoglobin 7.0 and platelets 87 BUN 84 and creatinine 3.29 Albumin 2.2 06/09/2020 Patient remains on ventilator and is currently sedated. Patient is also on Levophed drip. Chest x-ray showed suspect some improvement in patient's volume status. There may be basilar effusions. Atelectasis, difficult to exclude pneumonia. Patient does have chest tube with minimal drainage. Laboratory data showed WBC 11.8, hemoglobin 7.9 and platelets 87 BUN 88 and creatinine 3.06 Pulmonary and nephrology is on board. 06/10/2020 Patient is currently extubated and is saturating well on oxygen via nasal cannula. Patient is otherwise awake alert and trying to communicate. Chest x-ray this morning showed improving aeration of the left especially in the upper and midlung after left-sided chest tube placement. Focal opacity remains at the left base as well as trace right effusion. 2D echocardiogram showed ejection fraction 40 to 45% there is severe tricuspid regurgitation present. Severe pulmonary hypertension. Left ventricle systolic pressure is 84.96 mmHg. Laboratory data showed WBC 13.2, hemoglobin 7.3 and platelets 83 BUN 100 and creatinine 2.97 06/11/2020 Patient is currently remained ICU. Awake alert but not communicating. Patient is off the ventilator. Currently on oxygen via nasal cannula. Patient is status post chest tube placement. Repeat chest x-ray showed lung seems expanded but left lower lobe remains consolidated. Patient is still on Levophed drip at low-dose. Patient went into A. fib with RVR and was started on amiodarone drip. Cardiology was consulted. Creatinine level is elevated. Nephrology is following. 06/12/2020 Patient is currently in MICU. Awake alert and oriented but communicating very slowly. Able to follow simple commands. Continued on Lasix drip. Patient is also reporting Levophed drip. Amiodarone drip due to atrial fibrillation with RVR. Chest x-ray showed persistent left-sided volume loss with worsening left lung opacity despite chest tube in place. Suggests worsening left-sided pleural effusion and associated left lung atelectasis and/or infiltrate. Patient is being continued on antibiotics in the form of Zosyn. Cardiology, pulmonary and nephrology is on board. Laboratory data showed WBC 23.2, hemoglobin 7.3, platelets 131 BUN 96 and creatinine 3.56 Urinalysis is negative for infection. Patient has been afebrile. 06/13/2020 Patient is currently remains in MICU. More awake and oriented and able to talk simple words. Denied any chest pain. No worsening shortness of breath. patient is currently on oxygen via nasal cannula. Patient was BiPAP in the morning. Chest x-ray showed cardiomegaly and interstitial prominence correlate for CHF with mild pulmonary vascular congestion. Improving aeration in the left with decreased but persistent moderate left pleural effusion with adjacent atelectasis and/or consolidation. Chest tube remains in place. Increasing small right effusion. remains on levophed. 06/14/2020 Patient says she is feeling better. Patient can use to have left-sided chest tube to wall suction there is a concern about chylothorax patient remains on IV Lasix drip, patient is also on IV hydrocortisone every 6 hours. Patient does have sick euthyroid syndrome TSH need to be repeated again. 06/15/2020 Patient is still has a chest tube which is draining. Patient went into hypercapnic respiratory failure yesterday for which patient was started on BiPAP patient was initiated on hemodialysis and is undergoing hemodialysis today 06/16/2020 Patient is quite a bit lethargic patient is off BiPAP at this time patient is still on hyperelastic cannula oxygen patient is undergoing hemodialysis today patient is a low-dose of norepinephrine. Can use to have a chest tube AST and ALP are bit worse. 06/17/2020 Patient is off BiPAP is on high flow nasal cannula oxygen at this time patient's norepinephrine was discontinued patient is undergoing hemodialysis on daily basis. Constitutional: Denied any fatigue denied any fever. Cardio vascular: denied any chest pain, palpitations Gastrointestinal denied any nausea vomiting Pulmonary: Denied any shortness of breath cough Neurologic denied any new focal deficits All inpatient medications were reviewed and appropriate changes in these medications as dictated in the interval history and assessment and plan. 06/18/2020 Patient is seen and evaluated and follow-up in currently being closely monitored in the ICU. Patient is undergoing hemodialysis again today. Hemoglobin was found to be 6.9 although holding off on transfusion as there are no active signs of bleeding noted. Repeat a.m. labs and monitor closely. Patient is on 2 L of nasal cannula and tolerating well. Patient is now off pressors. Patient continues to be lethargic and drowsy but is arousable and moaning and responding to simple commands. Patient scheduled to undergo a swallow eval today. No reports of chest pain or shortness of breath. Patient is afebrile. Discussed with family about CODE STATUS and wishes to remain a full code at this time. Objective - Vital Signs Vital signs: Vital Signs Temp 97.8 F 06/18/20 08:00 Pulse 77 06/18/20 11:00 Resp 12 06/18/20 11:00 BP 117/70 06/18/20 11:00 Pulse Ox 98 06/18/20 11:00 Intake & Output 06/17/20 06/18/20 06/18/20 18:59 06:59 18:59 Intake Total 359.381 336 215 Output Total 28 7 23 Balance 331.381 329 192 Weight 199.036 kg 199.036 kg Intake: IV 356 336 215 0.9 pressure bag 36 36 15 Piperacillin-Tazobactam 3 100 100 100 .375 gm In Sodium Chloride 0.9% 100 ml @ 25 mls/hr IVPB Q12HR [facility] Rx #:[id number] Sodium Chloride 0.9% 1, 220 200 100 000 ml @ 20 mls/hr IV . Q24H [facility] Rx#:[id number] Intake, IV Titration 3.381 Amount Norepinephrine 32 mg In 3.381 Sodium Chloride 0.9% 218 ml @ 0.05 MCG/KG/MIN 4. 784 mls/hr IV .Q24H [facility] Rx#:[id number] Output: Urine 28 7 23 Other: Voiding Method Indwelling Catheter Indwelling Catheter Indwelling Catheter # Voids 0 ABP, PAP, CO, CI - Last Documented Arterial Blood Pressure 108/65 - Exam GENERAL: The patient is bit lethargic but arousable and responding to simple commands, not in any acute distress. Morbidly obese, currently receiving hemodialysis HEENT: Pupils are round and equally reacting to light. EOMI. No scleral icterus. No conjunctival pallor. Normocephalic, atraumatic. No pharyngeal erythema. No t hyromegaly. CARDIOVASCULAR: S1 and S2 present. No murmurs, rubs, or gallops. PULMONARY: Diminished breath sounds bilaterally with no wheezing or crackles. ABDOMEN: Soft, obese, nontender, nondistended, normoactive bowel sounds. No palpable organomegaly. MUSCULOSKELETAL: No joint swelling or deformity. EXTREMITIES: No cyanosis, clubbing, right lateral lower extremity edema noted 1+ pitting NEUROLOGICAL: Gross neurological examination did not reveal any focal deficits. SKIN: No rashes. - Labs CBC & Chem 7: 06/18/20 04:15 06/18/20 04:15 Labs: Abnormal Lab Results - Last 24 Hours (Table) 06/18/20 06/18/20 Range/Units 04:15 04:15 RBC 2.51 L (3.80-5.40) m/uL Hgb 6.9 L* (11.4-16.0) gm/dL Hct 23.8 L (34.0-46.0) % MCHC 28.8 L (31.0-37.0) g/dL RDW 20.0 H (11.5-15.5) % Plt Count 72 L (150-450) k/uL BUN 60 H (7-17) mg/dL Creatinine 3.34 H (0.52-1.04) mg/dL Assessment and Plan Assessment: -s/p Cardiac arrest with PEA, patient was intubated and was extubated on the June 09, patient had complete opacification of the left lung -Acute hypoxic, hypercapnic respiratory failure-requiring ventilator, patient is off ventilatory support as mentioned above, patient currently on 2 L of oxygen via nasal cannula -Left-sided pleural effusion and consolidation and a possible pneumonia and patient is on IV antibiotics in form of Zosyn Status post chest tube placement, chest tube was discontinued -New onset A. fib with RVR. -Hypotensive shock requiring pressor support. possibe Septic shock due to Pneumonia, currently off pressors -Acute on Chronic congestive heart failure from diastolic dysfunction -Severe pulmonary hypertension and severe TR. -Acute kidney injury secondary to ATN secondary to cardiac arrest/hemodynamic instability. Nephrology following -Chronic kidney disease stage IV secondary to nephrosclerosis, patient continues with daily hemodialysis -Morbid obesity BMI 75.2 -Chronic kidney disease renal bone disease -Anemia of chronic kidney disease, patient hemoglobin did drop because of frequent blood draws, current hemoglobin is 6.9 and will continue to monitor closely. No plans for transfusion today -Persistent atrial fibrillation, rate controlled -Nonalcoholic fatty liver disease -COPD in an ex-smoker -Primary osteoarthritis -Obstructive sleep apnea -Chronic gout -Chronic hypoxic respiratory failure from COPD -Chronic medical debility and a baseline patient does use a lift to a wheelchair -Status post Thoracentesis -Full code Plan: Continue current medications, management, and symptomatic treatment. Will repeat a.m. labs. Patient currently maintained on hemodialysis daily and will continue at this time. Multiple medical consultations following. Discussion about CODE STATUS with the family and family wishes for patient to remain a full code at this time. Need to discuss further with other family members before making decisions about changing CODE STATUS. Due to multiple complex medical issues, prognosis is extremely guarded and poor. Will continue to monitor closely. Further recommendations to follow.
--- NOTE | 2020-06-18 13:50 | XR ---
EXAMINATION TYPE: XR chest 1V portable DATE OF EXAM: 06/18/2020 COMPARISON: 06/18/2020 HISTORY: Dobbhoff tube placement FINDINGS: Dobbhoff tube is noted however its distal component is not visualized and therefore I cannot document location. Dobbhoff tube is cut off at the level of the upper stomach. Indwelling tubes and catheters are unchanged. Left lower lobe infiltrate and/or atelectasis persists. Stable appearance of the cardio-mediastinal structures at this time. Pleural effusion unchanged. IMPRESSION: 1. Dobbhoff tube is noted however its distal component is not visualized and therefore I cannot docu ment location. Dobbhoff tube is cut off at the level of the upper stomach.
[2020-06-18] MEDS: CHOLECALCIFEROL 1,000 UNIT TAB PO SCH (16:20)
[2020-06-18 17:53] LABS: Glucose,Whole Blood 94 mg/dL (75-99)
[2020-06-18] MEDS: ATORVASTATIN 40 MG TAB PO SCH (21:10)
--- NOTE | 2020-06-18 23:10 | PCN ---
PROCEDURE NOTE PROCEDURE PERFORMED: Dobbhoff feeding tube placement. PREOP DIAGNOSIS: Acute hypoxic respiratory failure. POSTOP DIAGNOSIS: Acute hypoxic respiratory failure. The Dobbhoff was lubricated with KY jelly. PROCEDURE DETAILS: The procedure was explained to the patient and the family, consent was obtained, a Dobbhoff tube was inserted through the right naris, inserted without difficulty. Placement was confirmed with a chest x-ray. The stylet will be removed and tube was secured with tape on the bridge of the nose. Tube feedings will be initiated this afternoon with RD recommendations. The patient tolerated the procedure well. No acute distress. MMODL / IJN: [id number] /
[2020-06-18 23:24] LABS: Glucose,Whole Blood 94 mg/dL (75-99)
[2020-06-19 05:56] LABS: Glucose,Whole Blood 103 mg/dL (75-99)
[2020-06-19 06:25] LABS: Anisocytosis Moderate; HCT 23.8 % (34.0-46.0); Hypochromasia Marked; MCH 27.3 pg (25.0-35.0); MCHC 28.8 g/dL (31.0-37.0); MCV 94.9 fL (80.0-100.0); Macrocytosis Slight; Mean Platelet Volume 13.3; Poikilocytosis Slight; RBC 2.51 m/uL (3.80-5.40); RDW 20.2 % (11.5-15.5); WBC 8.9 k/uL (3.8-10.6)
[2020-06-19] MEDS: INSULIN ASPART (NovoLOG) 100 UNIT/ML VIAL SQ SCH ×3 (06:25→19:09)
[2020-06-19 06:26] LABS: HGB 6.9 gm/dL (11.4-16.0); Platelet Count 70 k/uL (150-450)
[2020-06-19] MEDS: HYDROCORTISONE SUCCINATE 100 MG/2 ML VIAL IV SCH ×3 (06:32→17:11)
[2020-06-19] MEDS: MIDODRINE 5 MG TAB PO SCH ×3 (06:32→17:11)
[2020-06-19 06:38] LABS: Calcium 8.7 mg/dL (8.4-10.2); Potassium 3.8 mmol/L (3.5-5.1)
[2020-06-19] MEDS: AMIODARONE 200 MG TAB PO SCH ×2 (08:57→21:39)
[2020-06-19] MEDS: CALCIUM ACETATE 667 MG TAB PO SCH (08:57)
[2020-06-19] MEDS: allopurinoL 100 MG TAB PO SCH (08:57)
[2020-06-19] MEDS: SODIUM CHLORIDE 0.9% 1,000 ML IV SCH (08:57)
[2020-06-19] MEDS: LEVOTHYROXINE IVP 100 MCG/5 ML VIAL IV SCH (08:57)
[2020-06-19] MEDS: NON FORMULARY DRUG (Linaclotide [Linzess] 145 MCG) PO SCH (08:58)
[2020-06-19] MEDS: PIPERACILLIN-TAZOBACTAM 3.375 GM in SODIUM CHLORIDE 0.9% 100 ML IVPB SCH ×2 (08:58→21:39)
[2020-06-19] MEDS: TRIAMCINOLONE 0.1% CREAM 80 GM TUBE TOPICAL SCH ×2 (08:59→21:52)
--- NOTE | 2020-06-19 10:24 | P.PN ---
Subjective Progress Note Date: 06/19/20 Principal diagnosis: This is a morbidly obese female weighing 195 kg, with atrial fibrillation obstruction sleep apnea and chronic kidney disease stage IV diastolic dysfunction. Started on dialysis and is on daily dialysis. She is currently on BiPAP She is awake alert but profoundly weak. Her blood pressures are somewhat low on dialysis and off of dialysis, running in the 100 210 range heart rate in the 60s atrial fibrillation She is not on any inotropes. Currently on dialysis for a liter ultrafiltration goal oh 3-1/2 hours. Objective - Vital Signs Vital signs: Vital Signs Temp 97.7 F 06/19/20 09:00 Pulse 61 06/19/20 09:00 Resp 16 06/19/20 09:00 BP 107/62 06/19/20 09:00 Pulse Ox 94 L 06/19/20 09:00 Intake & Output 06/18/20 06/19/20 06/19/20 18:59 06:59 18:59 Intake Total 375 550 310 Output Total 3030 30 2 Balance -2655 520 308 Weight 199.036 kg 195.136 kg Intake: IV 375 320 160 0.9 pressure bag 15 Piperacillin-Tazobactam 3 100 100 100 .375 gm In Sodium Chloride 0.9% 100 ml @ 25 mls/hr IVPB Q12HR [facility] Rx #:[id number] Sodium Chloride 0.9% 1, 260 220 60 000 ml @ 20 mls/hr IV . Q24H [facility] Rx#:[id number] Tube Feeding 140 80 Other 90 70 Output: Urine 30 30 2 Hemodialysis 3000 Other: Voiding Method Indwelling Catheter Indwelling Catheter # Voids 0 ABP, PAP, CO, CI - Last Documented Arterial Blood Pressure 108/65 On examination she is morbidly obese She is on BiPAP Difficult to examine her No JVP noted neck is supple no facial asymmetry Lungs are clear to auscultation but difficult exam for vitreous for Heart sounds are unremarkable distant on the monitor she has atrial fibrillation with rate in the 60s Abdomen is soft obese Extremity exam was moderate edema Warm to touch Neurologically awake alert but generalized weakness profoundly - Labs CBC & Chem 7: 06/19/20 06:12 06/19/20 06:12 Labs: Abnormal Lab Results - Last 24 Hours (Table) 06/19/20 06/19/20 06/19/20 Range/Units 05:54 06:12 06:12 RBC 2.51 L (3.80-5.40) m/uL Hgb 6.9 L* (11.4-16.0) gm/dL Hct 23.8 L (34.0-46.0) % MCHC 28.8 L (31.0-37.0) g/dL RDW 20.2 H (11.5-15.5) % Plt Count 70 L (150-450) k/uL Sodium 135 L (137-145) mmol/L BUN 50 H (7-17) mg/dL Creatinine 3.06 H (0.52-1.04) mg/dL POC Glucose (mg/dL) 103 H (75-99) mg/dL Assessment and Plan Assessment: Impression 1. Acute kidney injury, cardiorenal syndrome with diastolic dysfunction, chronic kidney disease stage IV. Started on dialysis currently on daily dialysis because of volume overload. Improved congestive heart failure on x-ray 2. Morbidly obese and weighs 195 kg 3. Anemia of chronic kidney disease hemoglobin is 6.9, down from 7.9 at admission on 06/02/2020. Last iron saturation was 8% on 05/01/2029 recently that 4. Thrombocytopenia platelet count 70,000 cause not clear 5. Obstructive sleep apnea 6. Atrial fibrillation 7. Diastolic dysfunction Recommendation 1 . Check iron saturation. 2. Next dialysis will be on Sunday. 3. Continue Aranesp 60 g every week
--- NOTE | 2020-06-19 11:49 | P.PN ---
Subjective Progress Note Date: 06/19/20 Principal diagnosis: Acute left lung opacification. The patient is seen today 06/19/2020 in follow-up in the intensive care unit. She is currently on BiPAP 14 over 4 and 30% FiO2. His appointment are missing it 20 mg per hour. She is receiving Nepro tube feedings via Dobbhoff that was placed yesterday. She is at 20 ML's per hour with a goal of 40. She is receiving hemodialysis today. Blood cultures reveal no growth. Pleural fluid cultures reveal no growth. White count 8.9. Hemoglobin 6.9. Platelets 70,000. Sodium 135. Potassium 3.8. Creatinine 2.06. She remains on antibiotics in the form of Zosyn. Remains on Solu Cortef. Amiodarone for rate control. Objective - Vital Signs Vital signs: Vital Signs Temp 97.7 F 06/19/20 09:00 Pulse 67 06/19/20 11:00 Resp 16 06/19/20 11:00 BP 115/58 06/19/20 11:00 Pulse Ox 97 06/19/20 11:00 Intake & Output 06/18/20 06/19/20 06/19/20 18:59 06:59 18:59 Intake Total 375 550 350 Output Total 3030 30 2 Balance -2655 520 348 Weight 199.036 kg 195.136 kg Intake: IV 375 320 200 0.9 pressure bag 15 Piperacillin-Tazobactam 3 100 100 100 .375 gm In Sodium Chloride 0.9% 100 ml @ 25 mls/hr IVPB Q12HR [facility] Rx #:[id number] Sodium Chloride 0.9% 1, 260 220 100 000 ml @ 20 mls/hr IV . Q24H [facility] Rx#:[id number] Tube Feeding 140 80 Other 90 70 Output: Urine 30 30 2 Hemodialysis 3000 Other: Voiding Method Indwelling Catheter Indwelling Catheter # Voids 0 ABP, PAP, CO, CI - Last Documented Arterial Blood Pressure 108/65 - Exam Very pleasant 70-year-old female patient, morbidly obesity BMI of 75.2. Currently on BiPAP 14 over 4 and 30% FiO2 Head exam was generally normal. There was no scleral icterus or corneal arcus. Mucous membranes were moist. Neck was supple and without jugular venous distension, thyromegaly, or carotid bruits. Carotids were easily palpable bilaterally. There was no adenopathy. The patient is a Mallampati class IV with significant crowding of posterior pharynx Cardiac exam revealed the PMI to be normally situated and sized. The rhythm was regular and no extrasystoles were noted during several minutes of auscultation. The first and second heart sounds were normal and physiologic splitting of the second heart sound was noted. There were no murmurs, rubs, clicks, or gallops. Lungs sounds are diminished bilaterally left more than right Abdominal exam revealed normal bowel sounds. The abdomen was soft, non-tender, and without masses, organomegaly, or appreciable enlargement of the abdominal aorta. Organs aren't not accurately assess as the patient is morbidly obese. Examination of the extremities revealed easily palpable radial, femoral and pedal pulses. There was no cyanosis, clubbing and there is increased edema in the lower extremities bilaterally. Examination of the skin revealed no evidence of significant rashes, suspicious appearing nevi or other concerning lesions. Neurologically, the patient is awake and alert and the patient does not have any focal neurological deficit. Cranial nerves are essentially intact. - Labs CBC & Chem 7: 06/19/20 06:12 06/19/20 06:12 Labs: Abnormal Lab Results - Last 24 Hours (Table) 06/19/20 06/19/20 06/19/20 Range/Units 05:54 06:12 06:12 RBC 2.51 L (3.80-5.40) m/uL Hgb 6.9 L* (11.4-16.0) gm/dL Hct 23.8 L (34.0-46.0) % MCHC 28.8 L (31.0-37.0) g/dL RDW 20.2 H (11.5-15.5) % Plt Count 70 L (150-450) k/uL Sodium 135 L (137-145) mmol/L BUN 50 H (7-17) mg/dL Creatinine 3.06 H (0.52-1.04) mg/dL POC Glucose (mg/dL) 103 H (75-99) mg/dL Assessment and Plan Assessment: 1 acute on chronic hypoxic respiratory failure, presented complete opacification of the left lung and large left-sided pleural effusion, transudative in nature, status post thoracentesis following left-sided chest tube placement with subsequent removal. Cultures are negative. Currently on BiPAP 14 over 4 and 30% FiO2 2 acute left lower lobe pneumonia and possible septic shock, remains on Zosyn 3 morbid obesity with a BMI of 74.2 4 chronic hypoxic respiratory failure currently on 2 L of oxygen by nasal cannula 5 Chronic kidney disease stage IV secondary to nephrosclerosis with some worsening 6 Chronic gastritis finding any recent EGD 7 vaginal bleeding.-Intermittent 8 Chronic congestive heart failure from diastolic dysfunction EF 55-60% 9 Morbid obesity BMI 34.2 10 renal bone disease 11 Anemia of chronic kidney disease 12 Persistent atrial fibrillation, rate controlled 13 Nonalcoholic fatty liver disease 14 COPD in an ex-smoker 15 Primary osteoarthritis 16 Obstructive sleep apnea 17 Chronic gout 18 Chronic hypoxic respiratory failure from COPD 19 Chronic medical debility and a baseline patient does use a lift to a wheelchair Plan The patient was seen and evaluated by Dr. Curtis We'll continue with the current treatment plan Receiving hemodialysis today Remains a full code at this point Multiple conversations with the family We'll continue to follow I, the cosigning physician, performed a history & physical examination of the patient. Lungs sounds diminished in the left lung crews. Maintaining good O2 saturations in the 90s on BiPAP 14 over 4 and 30% FiO2. I discussed the asse ssment and plan of care with my nurse practitioner, Ama Streeter. I attest to the above note as dictated by her.
[2020-06-19 11:52] LABS: Glucose,Whole Blood 110 mg/dL (75-99)
[2020-06-19] MEDS: METOPROLOL TARTRATE 5 MG/5 ML VIAL IVP SCH ×2 (12:23→21:51)
[2020-06-19] MEDS: ASPIRIN 81 MG PO SCH (12:36)
--- NOTE | 2020-06-19 15:24 | P.PN ---
Subjective 70-year-old patient was chronic stable medical conditions include CHF EF 55 and 55%, morbid obesity, chronic kidney disease stage IV secondary to ne phrosclerosis, renal bone disease, anemia of chronic kidney disease, persistent atrial fibrillation, fatty liver, COPD, primary osteoarthritis, obstructive sleep apnea, chronic gout, on home oxygen, chronic medical debility at her baseline uses a lift a wheelchair. Patient is a resident at [facility]. Patient presents with increasing swelling about a week. Increase in shortness of breath. Appetite is okay. Bowel movements are okay. No fever no chills. Started on IV Lasix. Admitted with CHF exacerbation. Put on IV Lasix. On June 04 -was taken to for thoracentesis and it was a bit difficult by IR. Patient went into PEA cardiac arrest. intubated. Hypotensive. Moved to ICU. Thora-vent was placed. About 850 mL of pus-bloody fluid was obtained. [id number]. On the ventilator. Telemetry shows sinus rhythm. Left chest tube to suction. On IV levo fed and propofol. Tube feeding. Granddaughter at the bedside. 06/08/2020 Patient is currently mechanical ventilator and is being monitored in the ICU. Sedated. low dose levophed. Chest x-ray showed cardiomegaly with central vascular congestion and small to moderate sized bilateral pleural fluid collections with the left sided pleural drainage catheter. Bronchial fluid cultures negative so far. Laboratory data showed WBC 8.2, hemoglobin 7.0 and platelets 87 BUN 84 and creatinine 3.29 Albumin 2.2 06/09/2020 Patient remains on ventilator and is currently sedated. Patient is also on Levophed drip. Chest x-ray showed suspect some improvement in patient's volume status. There may be basilar effusions. Atelectasis, difficult to exclude pneumonia. Patient does have chest tube with minimal drainage. Laboratory data showed WBC 11.8, hemoglobin 7.9 and platelets 87 BUN 88 and creatinine 3.06 Pulmonary and nephrology is on board. 06/10/2020 Patient is currently extubated and is saturating well on oxygen via nasal cannula. Patient is otherwise awake alert and trying to communicate. Chest x-ray this morning showed improving aeration of the left especially in the upper and midlung after left-sided chest tube placement. Focal opacity remains at the left base as well as trace right effusion. 2D echocardiogram showed ejection fraction 40 to 45% there is severe tricuspid regurgitation present. Severe pulmonary hypertension. Left ventricle systolic pressure is 84.96 mmHg. Laboratory data showed WBC 13.2, hemoglobin 7.3 and platelets 83 BUN 100 and creatinine 2.97 06/11/2020 Patient is currently remained ICU. Awake alert but not communicating. Patient is off the ventilator. Currently on oxygen via nasal cannula. Patient is status post chest tube placement. Repeat chest x-ray showed lung seems expanded but left lower lobe remains consolidated. Patient is still on Levophed drip at low-dose. Patient went into A. fib with RVR and was started on amiodarone drip. Cardiology was consulted. Creatinine level is elevated. Nephrology is following. 06/12/2020 Patient is currently in MICU. Awake alert and oriented but communicating very slowly. Able to follow simple commands. Continued on Lasix drip. Patient is also reporting Levophed drip. Amiodarone drip due to atrial fibrillation with RVR. Chest x-ray showed persistent left-sided volume loss with worsening left lung opacity despite chest tube in place. Suggests worsening left-sided pleural effusion and associated left lung atelectasis and/or infiltrate. Patient is being continued on antibiotics in the form of Zosyn. Cardiology, pulmonary and nephrology is on board. Laboratory data showed WBC 23.2, hemoglobin 7.3, platelets 131 BUN 96 and creatinine 3.56 Urinalysis is negative for infection. Patient has been afebrile. 06/13/2020 Patient is currently remains in MICU. More awake and oriented and able to talk simple words. Denied any chest pain. No worsening shortness of breath. patient is currently on oxygen via nasal cannula. Patient was BiPAP in the morning. Chest x-ray showed cardiomegaly and interstitial prominence correlate for CHF with mild pulmonary vascular congestion. Improving aeration in the left with decreased but persistent moderate left pleural effusion with adjacent atelectasis and/or consolidation. Chest tube remains in place. Increasing small right effusion. remains on levophed. 06/14/2020 Patient says she is feeling better. Patient can use to have left-sided chest tube to wall suction there is a concern about chylothorax patient remains on IV Lasix drip, patient is also on IV hydrocortisone every 6 hours. Patient does have sick euthyroid syndrome TSH need to be repeated again. 06/15/2020 Patient is still has a chest tube which is draining. Patient went into hypercapnic respiratory failure yesterday for which patient was started on BiPAP patient was initiated on hemodialysis and is undergoing hemodialysis today 06/16/2020 Patient is quite a bit lethargic patient is off BiPAP at this time patient is still on hyperelastic cannula oxygen patient is undergoing hemodialysis today patient is a low-dose of norepinephrine. Can use to have a chest tube AST and ALP are bit worse. 06/17/2020 Patient is off BiPAP is on high flow nasal cannula oxygen at this time patient's norepinephrine was discontinued patient is undergoing hemodialysis on daily basis. 06/19/2020 Patient is off BiPAP today patient is doing much better today and the patient is on dialysis. Doing well awake. Patient has a Dobbhoff tube that was placed and receiving appropriate through the Dobbhoff tube pleural fluid cultures did not show any growth. Constitutional: Denied any fatigue denied any fever. Cardio vascular: denied any chest pain, palpitations Gastrointestinal denied any nausea vomiting Pulmonary: Denied any shortness of breath cough Neurologic denied any new focal deficits All inpatient medications were reviewed and appropriate changes in these medications as dictated in the interval history and assessment and plan. Objective - Vital Signs Vital signs: Vital Signs Temp 97.4 F L 06/19/20 12:13 Pulse 65 06/19/20 15:00 Resp 13 06/19/20 15:00 BP 110/47 06/19/20 15:00 Pulse Ox 97 06/19/20 15:00 Intake & Output 06/18/20 06/19/20 06/19/20 18:59 06:59 18:59 Intake Total 375 550 690 Output Total 3030 30 6702 Balance -2655 520 -6012 Weight 199.036 kg 195.136 kg Intake: IV 375 320 280 0.9 pressure bag 15 Piperacillin-Tazobactam 3 100 100 100 .375 gm In Sodium Chloride 0.9% 100 ml @ 25 mls/hr IVPB Q12HR [facility] Rx #:[id number] Sodium Chloride 0.9% 1, 260 220 180 000 ml @ 20 mls/hr IV . Q24H [facility] Rx#:[id number] Tube Feeding 140 280 Other 90 130 Output: Urine 30 30 2 Hemodialysis 3000 3200 Other 3500 Other: Voiding Method Indwelling Catheter Indwelling Catheter Indwelling Catheter # Voids 0 ABP, PAP, CO, CI - Last Documented Arterial Blood Pressure 108/65 - Exam PHYSICAL EXAMINATION: GENERAL: Patient looks much better today awake alert on aspirin cannula oxygen has a Dobbhoff tube in place HEENT: Pupils are round and equally reacting to light. EOMI. No scleral icterus. No conjunctival pallor. Normocephalic, atraumatic. No pharyngeal erythema. No thyromegaly. CARDIOVASCULAR: S1 and S2 present. No murmurs, rubs, or gallops. PULMONARY: Chest is clear to auscultation, no wheezing or crackles. ABDOMEN: Soft, nontender, nondistended, normoactive bowel sounds. No palpable organomegaly. MUSCULOSKELETAL: No joint swelling or deformity. EXTREMITIES: No cyanosis, clubbing, does have pedal edema NEUROLOGICAL: Gross neurological examination did not reveal any focal deficits. SKIN: No rashes. - Labs CBC & Chem 7: 06/19/20 06:12 06/19/20 06:12 Labs: Abnormal Lab Results - Last 24 Hours (Table) 06/19/20 06/19/20 06/19/20 Range/Units 05:54 06:12 06:12 RBC 2.51 L (3.80-5.40) m/uL Hgb 6.9 L* (11.4-16.0) gm/dL Hct 23.8 L (34.0-46.0) % MCHC 28.8 L (31.0-37.0) g/dL RDW 20.2 H (11.5-15.5) % Plt Count 70 L (150-450) k/uL Sodium 135 L (137-145) mmol/L BUN 50 H (7-17) mg/dL Creatinine 3.06 H (0.52-1.04) mg/dL POC Glucose (mg/dL) 103 H (75-99) mg/dL 06/19/20 Range/Units 11:50 RBC (3.80-5.40) m/uL Hgb (11.4-16.0) gm/dL Hct (34.0-46.0) % MCHC (31.0-37.0) g/dL RDW (11.5-15.5) % Plt Count (150-450) k/uL Sodium (137-145) mmol/L BUN (7-17) mg/dL Creatinine (0.52-1.04) mg/dL POC Glucose (mg/dL) 110 H (75-99) mg/dL Assessment and Plan Plan: Assessment and Plan Assessment: -s/p Cardiac arrest with PEA, patient was intubated and was extubated on the June 09, patient had complete opacification of the left lung and had pleural tap and presently at bedtime 2 the fluid was suspicious for chylothorax and the fluid was transudative nature -Acute hypoxic, hypercapnic respiratory failure-requiring ventilator, patient is off ventilatory support as mentioned above but the patient is presently on aspirin and oxygen. -Left-sided pleural effusion and consolidation and a possible pneumonia and pat ient is on IV antibiotics in form of Zosyn Status post chest tube placement, chest tube will be removed today on 06/17/2020 -New onset A. fib with RVR. -Hypotensive shock requiring pressor support. possibe Septic shock due to Pneumonia -Acute on Chronic congestive heart failure from diastolic dysfunction - Severe pulmonary hypertension and severe TR. - Acute kidney injury secondary to ATN secondary to cardiac arrest/hemodynamic instability. -Chronic kidney disease stage IV secondary to nephrosclerosis, patient will undergo catheter placement for possible dialysis -Morbid obesity BMI 75.2 -Chronic kidney disease renal bone disease -Anemia of chronic kidney disease, patient the hemoglobin did drop because of frequent blood draws and patient will receive 1 unit of PRBC transfusion today -Persistent atrial fibrillation, rate controlled Nonalcoholic fatty liver disease -COPD in an ex-smoker -Primary osteoarthritis -Obstructive sleep apnea -Chronic gout -Chronic hypoxic respiratory failure from COPD -Chronic medical debility and a baseline patient does use a lift to a wheelchair -Thoracentesis patient has a left-sided chest tube
[2020-06-19 18:35] LABS: Glucose,Whole Blood 122 mg/dL (75-99)
--- NOTE | 2020-06-19 20:11 | P.PN ---
Subjective Progress Note Date: 06/19/20 Principal diagnosis: atrial fibrillation This is a 70-year-old female past medical history significant for morbid obesity, chronic kidney disease, hypertension, anemia, previous tobacco dependence, stability residing in an [facility], diastolic heart failure with ejection fraction 40-45% and persistent atrial fibrillation who had presented for increasing swelling and shortness breath or the prior week and 06/03/2020. She had initial ultrasound on 06/10/2020 which showed ejection fraction 40-45% with severe pulmonary hypertension at 89 with severe right ventricular and right atrial enlargement and severe tricuspid regurgitation. Patient initially had left lung white out and was initially intubated. She had chest tube placed for left lung effusion with some improvement. 06/16/2020 Patient underwent dialysis yesterday and is currently undergoing dialysis today with goal of 3 L to be taken off. She remains obtunded and nonresponsive to verbal stimuli. She remains in atrial fibrillation with controlled ventricular response with heart rates in the 70s. She did require some increase in her levophed while on dialysis yesterday however has been maintaining a similar rate of pressors this morning. Hemoglobin somewhat downtrending to 7.0 this morning. She has been lethargic and therefore has not been able to take her medications by mouth. She was placed on BiPAP for increasing CO2. 06/17/2020 Patient again underwent dialysis yesterday with approximately 3 L taken off. Per nursing patient scheduled for dialysis again today. She remains in A. fib with controlled response. She's been on a low-dose of the Levophed however has been unable to take anything by mouth such as her Midodrine. Remains on BiPAP. She remains lethargic and alert and oriented 1. 06/18/2020 Patient seen and examined. Patient off of BiPAP and moaning and able to say her name however not able to answer my questions. ICU had discussion with daughter yesterday about goals of care and patient remains full code at this time. Still undergoing intermittent hemodialysis. 06/19/2020 Patient appears much more alert today. She is answering questions and interactive. She denies any chest pain or pressure. She admits she feels her breathing is improved. Heart rates appear to be controlled with atrial fibrillation as her rhythm. REVIEW OF SYSTEMS At the time of my exam: Patient extremely lethargic and not answering questions. PHYSICAL EXAMINATION Blood pressure 93/77 on the Levophed heart rate 66 afebrile and maintaining oxygen saturation on BiPAP CONSTITUTIONAL: No apparent distress, ill-appearing, lethargic and not responding to verbal stimuli, morbidly obese HEENT: Head is normocephalic. Pupils are equal, round. Sclerae anicteric. Mucous membranes of the mouth are moist. No carotid bruit. CHEST EXAMINATION: Left worse than right rhonchi and decreased breath sounds at the left base. HEART EXAMINATION: Irregularly irregular rate and rhythm. Normal S1-S2, positive RV heave, positive 3/6 systolic ejection murmur ABDOMEN: Soft, nontender. Positive bowel sounds. EXTREMITIES: 2+ peripheral pulses, no lower extremity edema and no calf tenderness. NEUROLOGIC EXAMINATION: Patient is somnolent, lethargic ASSESSMENT 1. Persistent atrial fibrillation, not anticoagulated because of recurrent episodes of bleeding 2. Morbid obesity 3. Acute on chronic diastolic heart failure with ejection fraction 40-45% from echo 06/10/2020 4. Chronic kidney disease, recently started hemodialysis 5. Anemia 6. History of sleep apnea 7. Severe pulmonary hypertension with RVSP of 85 on echo from 06/10/2020 with severe right ventricle and right atrial enlargement and severe tricuspid regurgitation 8. Possible cardiorenal syndrome with decompensated mainly right heart failure with worsening creatinine PLAN Patient much more alert today. Altered mental status seems to be improving with dialysis. Continue with dialysis with removal of fluid if able. Now the patient is consistently taking pills we will add Revatio for her pulmonary hypertension as her PA pressures appear to be near equal to her systemic pressures. Continue with supportive care. Objective - Vital Signs Vital signs: Vital Signs Temp 96.2 F L 06/19/20 16:00 Pulse 63 06/19/20 19:00 Resp 16 06/19/20 19:00 BP 101/62 06/19/20 19:00 Pulse Ox 95 06/19/20 19:00 Intake & Output 06/19/20 06/19/20 06/20/20 06:59 18:59 06:59 Intake Total 550 930 60 Output Total 30 6702 Balance 520 -4901 60 Weight 195.136 kg Intake: IV 320 340 20 Piperacillin-Tazobactam 3 100 100 .375 gm In Sodium Chloride 0.9% 100 ml @ 25 mls/hr IVPB Q12HR COUNTS INCLUDE 234 BEDS AT THE [facility] Rx #:[id number] Sodium Chloride 0.9% 1, 220 240 20 000 ml @ 20 mls/hr IV . Q24H COUNTS INCLUDE 234 BEDS AT THE [facility] Rx#:[id number] Tube Feeding 140 400 40 Other 90 190 Output: Urine 30 2 Hemodialysis 3200 Other 3500 Other: Voiding Method Indwelling Catheter Indwelling Catheter ABP, PAP, CO, CI - Last Documented Arterial Blood Pressure 108/65 - Labs CBC & Chem 7: 06/19/20 06:12 06/19/20 06:12 Labs: Abnormal Lab Results - Last 24 Hours (Table) 06/19/20 06/19/20 06/19/20 Range/Units 05:54 06:12 06:12 RBC 2.51 L (3.80-5.40) m/uL Hgb 6.9 L* (11.4-16.0) gm/dL Hct 23.8 L (34.0-46.0) % MCHC 28.8 L (31.0-37.0) g/dL RDW 20.2 H (11.5-15.5) % Plt Count 70 L (150-450) k/uL Sodium 135 L (137-145) mmol/L BUN 50 H (7-17) mg/dL Creatinine 3.06 H (0.52-1.04) mg/dL POC Glucose (mg/dL) 103 H (75-99) mg/dL 06/19/20 06/19/20 Range/Units 11:50 18:33 RBC (3.80-5.40) m/uL Hgb (11.4-16.0) gm/dL Hct (34.0-46.0) % MCHC (31.0-37.0) g/dL RDW (11.5-15.5) % Plt Count (150-450) k/uL Sodium (137-145) mmol/L BUN (7-17) mg/dL Creatinine (0.52-1.04) mg/dL POC Glucose (mg/dL) 110 H 122 H (75-99) mg/dL
[2020-06-19] MEDS: SILDENAFIL 20 MG TAB PO SCH (21:38)
[2020-06-19] MEDS: ATORVASTATIN 40 MG TAB PO SCH (21:39)
[2020-06-19] MEDS ORDERED: ALPRAZolam 0.25 MG TAB PO PRN (21:53)
[2020-06-20 00:26] LABS: Glucose,Whole Blood 125 mg/dL (75-99)
[2020-06-20] MEDS: INSULIN ASPART (NovoLOG) 100 UNIT/ML VIAL SQ SCH ×3 (01:07→12:56)
[2020-06-20] MEDS: HYDROCORTISONE SUCCINATE 100 MG/2 ML VIAL IV SCH ×3 (01:07→14:36)
[2020-06-20] MEDS ORDERED: Acetaminophen-Codeine 300-30mg TAB PO PRN (01:33)
[2020-06-20] MEDS ORDERED: HYDROmorphone 0.5 MG/0.5 ML SYRINGE IVP PRN (01:34)
[2020-06-20 03:54] LABS: Glucose,Whole Blood 115 mg/dL (75-99)
[2020-06-20 05:18] LABS: Glucose,Whole Blood 124 mg/dL (75-99)
[2020-06-20 05:42] LABS: Anisocytosis Moderate; HCT 24.4 % (34.0-46.0); HGB 7.1 gm/dL (11.4-16.0); Hypochromasia Marked; MCH 27.5 pg (25.0-35.0); MCHC 28.9 g/dL (31.0-37.0); MCV 95.4 fL (80.0-100.0); Macrocytosis Slight; Mean Platelet Volume 11.3; Poikilocytosis Slight; RBC 2.56 m/uL (3.80-5.40); RDW 20.1 % (11.5-15.5)
[2020-06-20 05:49] LABS: Platelet Count 69 k/uL (150-450)
[2020-06-20 05:51] LABS: Calcium 8.6 mg/dL (8.4-10.2); Potassium 3.2 mmol/L (3.5-5.1)
[2020-06-20] MEDS ORDERED: POTASSIUM BICARBONATE/CIT AC 20 MEQ TABLET.EFF PO ONE (06:26)
[2020-06-20] MEDS: PIPERACILLIN-TAZOBACTAM 3.375 GM in SODIUM CHLORIDE 0.9% 100 ML IVPB SCH (09:56)
[2020-06-20] MEDS: SILDENAFIL 20 MG TAB PO SCH (09:57)
[2020-06-20] MEDS: CALCIUM ACETATE 667 MG TAB PO SCH (09:57)
[2020-06-20] MEDS: LEVOTHYROXINE IVP 100 MCG/5 ML VIAL IV SCH (09:57)
[2020-06-20] MEDS: MIDODRINE 5 MG TAB PO SCH ×2 (09:58→14:36)
[2020-06-20] MEDS: AMIODARONE 200 MG TAB PO SCH (09:58)
--- NOTE | 2020-06-20 10:22 | P.PN ---
Subjective Progress Note Date: 06/20/20 Principal diagnosis: Acute left lung opacification. The patient is seen today 06/19/2020 in follow-up in the intensive care unit. She is currently on BiPAP 14 over 4 and 30% FiO2. His appointment are missing it 20 mg per hour. She is receiving Nepro tube feedings via Dobbhoff that was placed yesterday. She is at 20 ML's per hour with a goal of 40. She is receiving hemodialysis today. Blood cultures reveal no growth. Pleural fluid cultures reveal no growth. White count 8.9. Hemoglobin 6.9. Platelets 70,000. Sodium 135. Potassium 3.8. Creatinine 2.06. She remains on antibiotics in the form of Zosyn. Remains on Solu Cortef. Amiodarone for rate control. Patient is seen today 06/20/2020 in follow-up in the intensive care unit. She is currently laying flat in bed. She refuses the BiPAP. She is maintaining O2 saturations in the 90s currently on 1 L/m per nasal cannula. She's afebrile. Pleural fluid cultures reveal no growth. Blood cultures reveal no growth. White count 12.0. Hemoglobin 7.1. Platelet count 69,000. Sodium 132. Potassium 3.2. Bicarb 25. Creatinine 2.61. She did receive hemodialysis yesterday with 3.2 L removed. She is status post 2 units packed red blood cells this admission. She remains on Zosyn and Solu-Cortef. Continued on amiodarone at 400 mg twice a day. Objective - Vital Signs Vital signs: Vital Signs Temp 97.5 F L 06/20/20 04:00 Pulse 56 L 06/20/20 06:00 Resp 20 06/20/20 06:00 BP 95/61 06/20/20 06:00 Pulse Ox 98 06/20/20 06:00 Intake & Output 06/19/20 06/20/20 06/20/20 18:59 06:59 18:59 Intake Total 930 1030 20 Output Total 6702 24 0 Balance -5772 1006 20 Weight 193.412 kg Intake: IV 340 340 20 Piperacillin-Tazobactam 3 100 100 .375 gm In Sodium Chloride 0.9% 100 ml @ 25 mls/hr IVPB Q12HR [facility] Rx #:[id number] Sodium Chloride 0.9% 1, 240 240 20 000 ml @ 20 mls/hr IV . Q24H [facility] Rx#:[id number] Tube Feeding 400 600 Other 190 90 Output: Urine 2 24 0 Hemodialysis 3200 Other 3500 Other: Voiding Method Indwelling Catheter Indwelling Catheter ABP, PAP, CO, CI - Last Documented Arterial Blood Pressure 108/65 - Exam 70-year-old female patient, morbidly obesity BMI of 71.0. Currently on 1 L nasal cannula with O2 saturation the high 90s. Head exam was generally normal. There was no scleral icterus or corneal arcus. Mucous membranes were moist. Neck was supple and without jugular venous distension, thyromegaly, or carotid bruits. Carotids were easily palpable bilaterally. There was no adenopathy. The patient is a Mallampati class IV with significant crowding of posterior pharynx Cardiac exam revealed the PMI to be normally situated and sized. The rhythm was regular and no extrasystoles were noted during several minutes of auscultation. The first and second heart sounds were normal and physiologic splitting of the second heart sound was noted. There were no murmurs, rubs, clicks, or gallops. Lungs sounds are diminished bilaterally left more than right Abdominal exam revealed normal bowel sounds. The abdomen was soft, non-tender, and without masses, organomegaly, or appreciable enlargement of the abdominal aorta. Organs aren't not accurately assess as the patient is morbidly obese. Examination of the extremities revealed easily palpable radial, femoral and pedal pulses. There was no cyanosis, clubbing and there is increased edema in the lower extremities bilaterally. Examination of the skin revealed no evidence of significant rashes, suspicious appearing nevi or other concerning lesions. Neurologically, the patient is awake and alert and the patient does not have any focal neurological deficit. Cranial nerves are essentially intact. - Labs CBC & Chem 7: 06/20/20 05:10 06/20/20 05:10 Labs: Abnormal Lab Results - Last 24 Hours (Table) 06/19/20 06/19/20 06/20/20 Range/Units 11:50 18:33 00:24 WBC (3.8-10.6) k/uL RBC (3.80-5.40) m/uL Hgb (11.4-16.0) gm/dL Hct (34.0-46.0) % MCHC (31.0-37.0) g/dL RDW (11.5-15.5) % Plt Count (150-450) k/uL Sodium (137-145) mmol/L Potassium (3.5-5.1) mmol/L Chloride (98-107) mmol/L BUN (7-17) mg/dL Creatinine (0.52-1.04) mg/dL Glucose (74-99) mg/dL POC Glucose (mg/dL) 110 H 122 H 125 H (75-99) mg/dL 06/20/20 06/20/20 06/20/20 Range/Units 03:52 05:10 05:10 WBC 12.0 H (3.8-10.6) k/uL RBC 2.56 L (3.80-5.40) m/uL Hgb 7.1 L (11.4-16.0) gm/dL Hct 24.4 L (34.0-46.0) % MCHC 28.9 L (31.0-37.0) g/dL RDW 20.1 H (11.5-15.5) % Plt Count 69 L (150-450) k/uL Sodium 132 L (137-145) mmol/L Potassium 3.2 L (3.5-5.1) mmol/L Chloride 97 L (98-107) mmol/L BUN 39 H (7-17) mg/dL Creatinine 2.61 H (0.52-1.04) mg/dL Glucose 114 H (74-99) mg/dL POC Glucose (mg/dL) 115 H (75-99) mg/dL 06/20/20 Range/Units 05:17 WBC (3.8-10.6) k/uL RBC (3.80-5.40) m/uL Hgb (11.4-16.0) gm/dL Hct (34.0-46.0) % MCHC (31.0-37.0) g/dL RDW (11.5-15.5) % Plt Count (150-450) k/uL Sodium (137-145) mmol/L Potassium (3.5-5.1) mmol/L Chloride (98-107) mmol/L BUN (7-17) mg/dL Creatinine (0.52-1.04) mg/dL Glucose (74-99) mg/dL POC Glucose (mg/dL) 124 H (75-99) mg/dL Assessment and Plan Assessment: 1 acute on chronic hypoxic respiratory failure, presented complete opacification of the left lung and large left-sided pleural effusion, transudative in nature, status post thoracentesis following left-sided chest tube placement with subsequent removal. Cultures are negative. Currently on oxygen at 1 L/m per nasal cannula 2 acute left lower lobe pneumonia and possible septic shock, remains on Zosyn 3 morbid obesity with a BMI of 71.0 4 chronic hypoxic respiratory failure currently on 1 L of oxygen by nasal cannula 5 Chronic kidney disease stage IV secondary to nephrosclerosis with some worsening 6 Chronic gastritis finding any recent EGD 7 vaginal bleeding.-Intermittent 8 Chronic congestive heart failure from diastolic dysfunction EF 55-60% 9 Morbid obesity BMI 34.2 10 renal bone disease 11 Anemia of chronic kidney disease 12 Persistent atrial fibrillation, rate controlled 13 Nonalcoholic fatty liver disease 14 COPD in an ex-smoker 15 Primary osteoarthritis 16 Obstructive sleep apnea 17 Chronic gout 18 Chronic hypoxic respiratory failure from COPD 19 Chronic medical debility and a baseline patient does use a lift to a wheelchair Plan The patient was seen and evaluated by Dr. Curtis We'll continue with the current treatment plan Received hemodialysis yesterday with 3.2 L removed Remains a full code at this point Family is now considering DO NOT RESUSCITATE/DO NOT INTUBATE CODE STATUS and possible hospice We'll continue to follow I, the cosigning physician, performed a history & physical examination of the patient. Lungs sounds diminished in the left lung crews. Maintaining good O2 saturations in the 90s on 1 L/m per nasal cannula. I discussed the assessment and plan of care with my nurse practitioner, Ama Streeter. I attest to the above note as dictated by her.
--- NOTE | 2020-06-20 10:59 | P.PN ---
Subjective Progress Note Date: 06/20/20 Principal diagnosis: This is a morbidly obese female weighing 195 kg, with atrial fibrillation obstruction sleep apnea and chronic kidney disease stage IV diastolic dysfunction. Started on dialysis and is on daily dialysis. She is currently on BiPAP She is awake alert but profoundly weak. This morning complaining of inability to move her legs and generalized weakness. She is actually able to move her legs but is very weak She is cool to touch and her blood pressure is somewhat lowish, with difficulty in blood pressure measurement because of obesity. Blood pressures are recorded in the 80s to 90s systolic She is anuric Her last dialysis yesterday Objective - Vital Signs Vital signs: Vital Signs Temp 97.5 F L 06/20/20 04:00 Pulse 56 L 06/20/20 06:00 Resp 20 06/20/20 06:00 BP 95/61 06/20/20 06:00 Pulse Ox 98 06/20/20 06:00 Intake & Output 06/19/20 06/20/20 06/20/20 18:59 06:59 18:59 Intake Total 930 1030 20 Output Total 6702 24 0 Balance -5772 1006 20 Weight 193.412 kg Intake: IV 340 340 20 Piperacillin-Tazobactam 3 100 100 .375 gm In Sodium Chloride 0.9% 100 ml @ 25 mls/hr IVPB Q12HR [facility] Rx #:[id number] Sodium Chloride 0.9% 1, 240 240 20 000 ml @ 20 mls/hr IV . Q24H [facility] Rx#:[id number] Tube Feeding 400 600 Other 190 90 Output: Urine 2 24 0 Hemodialysis 3200 Other 3500 Other: Voiding Method Indwelling Catheter Indwelling Catheter ABP, PAP, CO, CI - Last Documented Arterial Blood Pressure 108/65 On examination she is morbidly obese She is on BiPAP Difficult to examine her No JVP noted neck is supple no facial asymmetry Lungs are clear to auscultation but difficult exam for vitreous for Heart sounds are unremarkable distant on the monitor she has atrial fibrillation with rate in the 60s Abdomen is soft obese Extremity exam was moderate edema Warm to touch Neurologically awake alert but generalized weakness profoundly - Labs CBC & Chem 7: 06/20/20 05:10 06/20/20 05:10 Labs: Abnormal Lab Results - Last 24 Hours (Table) 06/19/20 06/19/20 06/20/20 Range/Units 11:50 18:33 00:24 WBC (3.8-10.6) k/uL RBC (3.80-5.40) m/uL Hgb (11.4-16.0) gm/dL Hct (34.0-46.0) % MCHC (31.0-37.0) g/dL RDW (11.5-15.5) % Plt Count (150-450) k/uL Sodium (137-145) mmol/L Potassium (3.5-5.1) mmol/L Chloride (98-107) mmol/L BUN (7-17) mg/dL Creatinine (0.52-1.04) mg/dL Glucose (74-99) mg/dL POC Glucose (mg/dL) 110 H 122 H 125 H (75-99) mg/dL 06/20/20 06/20/20 06/20/20 Range/Units 03:52 05:10 05:10 WBC 12.0 H (3.8-10.6) k/uL RBC 2.56 L (3.80-5.40) m/uL Hgb 7.1 L (11.4-16.0) gm/dL Hct 24.4 L (34.0-46.0) % MCHC 28.9 L (31.0-37.0) g/dL RDW 20.1 H (11.5-15.5) % Plt Count 69 L (150-450) k/uL Sodium 132 L (137-145) mmol/L Potassium 3.2 L (3.5-5.1) mmol/L Chloride 97 L (98-107) mmol/L BUN 39 H (7-17) mg/dL Creatinine 2.61 H (0.52-1.04) mg/dL Glucose 114 H (74-99) mg/dL POC Glucose (mg/dL) 115 H (75-99) mg/dL 06/20/20 Range/Units 05:17 WBC (3.8-10.6) k/uL RBC (3.80-5.40) m/uL Hgb (11.4-16.0) gm/dL Hct (34.0-46.0) % MCHC (31.0-37.0) g/dL RDW (11.5-15.5) % Plt Count (150-450) k/uL Sodium (137-145) mmol/L Potassium (3.5-5.1) mmol/L Chloride (98-107) mmol/L BUN (7-17) mg/dL Creatinine (0.52-1.04) mg/dL Glucose (74-99) mg/dL POC Glucose (mg/dL) 124 H (75-99) mg/dL Assessment and Plan Assessment: Impression 1. Acute kidney injury, cardiorenal syndrome with diastolic dysfunction, chronic kidney disease stage IV. Started on dialysis currently on daily dialysis because of volume overload. Improved congestive heart failure on x- ray. Last dialysis was yesterday 06/19/2020. She has a permacath on the right chest 2. Morbidly obese and weighs 195 kg 3. Anemia of chronic kidney disease hemoglobin is 6.9 > 7.1, down from 7.9 at admission on 06/02/2020. Last iron saturation was 8% on 05/01/20 4. Thrombocytopenia platelet count 69,000 cause not clear 5. Obstructive sleep apnea on BiPAP 6. Atrial fibrillation, rate controlled 7. Diastolic dysfunction Recommendation 1 . Check iron saturation. 2. Next dialysis will be on Sunday. 3. Continue Aranesp 60 g every week 4. Because of the low blood pressure and anemia and her feeling cold give her 1 unit of blood packed cells
--- NOTE | 2020-06-20 11:56 | P.PN ---
Subjective Progress Note Date: 06/20/20 atrial fibrillation This is a 70-year-old female past medical history significant for morbid obesity, chronic kidney disease, hypertension, anemia, previous tobacco dependence, stability residing in an [facility], diastolic heart failure with ejection fraction 40-45% and persistent atrial fibrillation who had presented for increasing swelling and shortness breath or the prior week and 06/03/2020. She had initial ultrasound on 06/10/2020 which showed ejection fraction 40-45% with severe pulmonary hypertension at 89 with severe right ventricular and right atrial enlargement and severe tricuspid regurgitation. Patient initially had left lung white out and was initially intubated. She had chest tube placed for left lung effusion with some improvement. 06/16/2020 Patient underwent dialysis yesterday and is currently undergoing dialysis today with goal of 3 L to be taken off. She remains obtunded and nonresponsive to verbal stimuli. She remains in atrial fibrillation with controlled ventricular response with heart rates in the 70s. She did require some increase in her levophed while on dialysis yesterday however has been maintaining a similar rate of pressors this morning. Hemoglobin somewhat downtrending to 7.0 this morning. She has been lethargic and therefore has not been able to take her medications by mouth. She was placed on BiPAP for increasing CO2. 06/17/2020 Patient again underwent dialysis yesterday with approximately 3 L taken off. Per nursing patient scheduled for dialysis again today. She remains in A. fib with controlled response. She's been on a low-dose of the Levophed however has been unable to take anything by mouth such as her Midodrine. Remains on BiPAP. She remains lethargic and alert and oriented 1. 06/18/2020 Patient seen and examined. Patient off of BiPAP and moaning and able to say her name however not able to answer my questions. ICU had discussion with daughter yesterday about goals of care and patient remains full code at this time. Still undergoing intermittent hemodialysis. 06/19/2020 Patient appears much more alert today. She is answering questions and interactive. She denies any chest pain or pressure. She admits she feels her b reathing is improved. Heart rates appear to be controlled with atrial fibrillation as her rhythm. 06/20/2020 Patient seen and examined. Patient is much more lethargic today. Per nursing patient refused BiPAP last night and likely has CO2 narcosis. She has an NG tube in place secondary to inability to swallow at this time. Per nurse, patient's family considering more conservative approach. Patient remains in A. fib with controlled ventricular rates. REVIEW OF SYSTEMS At the time of my exam: Patient extremely lethargic and not answering questions. PHYSICAL EXAMINATION Blood pressure 93/77 on the Levophed heart rate 66 afebrile and maintaining oxygen saturation on BiPAP CONSTITUTIONAL: No apparent distress, ill-appearing, lethargic and not responding to verbal stimuli, morbidly obese HEENT: Head is normocephalic. Pupils are equal, round. Sclerae anicteric. Mucous membranes of the mouth are moist. No carotid bruit. CHEST EXAMINATION: Left worse than right rhonchi and decreased breath sounds at the left base. HEART EXAMINATION: Irregularly irregular rate and rhythm. Normal S1-S2, positive RV heave, positive 3/6 systolic ejection murmur ABDOMEN: Soft, nontender. Positive bowel sounds. EXTREMITIES: 2+ peripheral pulses, no lower extremity edema and no calf tenderness. NEUROLOGIC EXAMINATION: Patient is somnolent, lethargic ASSESSMENT 1. Persistent atrial fibrillation, not anticoagulated because of recurrent episodes of bleeding 2. Morbid obesity 3. Acute on chronic diastolic heart failure with ejection fraction 40-45% from echo 06/10/2020 4. Chronic kidney disease, recently started hemodialysis 5. Anemia 6. History of sleep apnea 7. Severe pulmonary hypertension with RVSP of 85 on echo from 06/10/2020 with severe right ventricle and right atrial enlargement and severe tricuspid regurgitation 8. Possible cardiorenal syndrome with decompensated mainly right heart failure with worsening creatinine PLAN Patient did have 1 good day yesterday of improved mental status however is lethargic again today. Continue to optimize her heart failure and pulmonary h ypertension as able. Attempted to add Revatio yesterday for her pulmonary hypertension and severe right ventricular failure however patient does not appear to be able to take medications by mouth. Continue supportive care, prognosis guarded. Objective - Vital Signs Vital signs: Vital Signs Temp 97.5 F L 06/20/20 04:00 Pulse 56 L 06/20/20 06:00 Resp 20 06/20/20 06:00 BP 95/61 06/20/20 06:00 Pulse Ox 98 06/20/20 06:00 Intake & Output 06/19/20 06/20/20 06/20/20 18:59 06:59 18:59 Intake Total 930 1030 20 Output Total 6702 24 0 Balance -5772 1006 20 Weight 193.412 kg Intake: IV 340 340 20 Piperacillin-Tazobactam 3 100 100 .375 gm In Sodium Chloride 0.9% 100 ml @ 25 mls/hr IVPB Q12HR [facility] Rx #:[id number] Sodium Chloride 0.9% 1, 240 240 20 000 ml @ 20 mls/hr IV . Q24H [facility] Rx#:[id number] Tube Feeding 400 600 Other 190 90 Output: Urine 2 24 0 Hemodialysis 3200 Other 3500 Other: Voiding Method Indwelling Catheter Indwelling Catheter ABP, PAP, CO, CI - Last Documented Arterial Blood Pressure 108/65 - Labs CBC & Chem 7: 06/20/20 05:10 06/20/20 05:10 Labs: Abnormal Lab Results - Last 24 Hours (Table) 06/19/20 06/20/20 06/20/20 Range/Units 18:33 00:24 03:52 WBC (3.8-10.6) k/uL RBC (3.80-5.40) m/uL Hgb (11.4-16.0) gm/dL Hct (34.0-46.0) % MCHC (31.0-37.0) g/dL RDW (11.5-15.5) % Plt Count (150-450) k/uL Sodium (137-145) mmol/L Potassium (3.5-5.1) mmol/L Chloride (98-107) mmol/L BUN (7-17) mg/dL Creatinine (0.52-1.04) mg/dL Glucose (74-99) mg/dL POC Glucose (mg/dL) 122 H 125 H 115 H (75-99) mg/dL 06/20/20 06/20/20 06/20/20 Range/Units 05:10 05:10 05:17 WBC 12.0 H (3.8-10.6) k/uL RBC 2.56 L (3.80-5.40) m/uL Hgb 7.1 L (11.4-16.0) gm/dL Hct 24.4 L (34.0-46.0) % MCHC 28.9 L (31.0-37.0) g/dL RDW 20.1 H (11.5-15.5) % Plt Count 69 L (150-450) k/uL Sodium 132 L (137-145) mmol/L Potassium 3.2 L (3.5-5.1) mmol/L Chloride 97 L (98-107) mmol/L BUN 39 H (7-17) mg/dL Creatinine 2.61 H (0.52-1.04) mg/dL Glucose 114 H (74-99) mg/dL POC Glucose (mg/dL) 124 H (75-99) mg/dL
[2020-06-20 12:55] VITALS: TEMP 97.2
[2020-06-20] MEDS: TRIAMCINOLONE 0.1% CREAM 80 GM TUBE TOPICAL SCH (12:55)
[2020-06-20] MEDS: SODIUM CHLORIDE 0.9% 1,000 ML IV SCH (12:55)
[2020-06-20] MEDS: METOPROLOL TARTRATE 5 MG/5 ML VIAL IVP SCH (12:56)
[2020-06-20] MEDS: ASPIRIN 81 MG PO SCH (12:56)
--- NOTE | 2020-06-20 13:07 | P.PN ---
Subjective 70-year-old patient was chronic stable medical conditions include CHF EF 55 and 55%, morbid obesity, chronic kidney disease stage IV secondary to ne phrosclerosis, renal bone disease, anemia of chronic kidney disease, persistent atrial fibrillation, fatty liver, COPD, primary osteoarthritis, obstructive sleep apnea, chronic gout, on home oxygen, chronic medical debility at her baseline uses a lift a wheelchair. Patient is a resident at [facility]. Patient presents with increasing swelling about a week. Increase in shortness of breath. Appetite is okay. Bowel movements are okay. No fever no chills. Started on IV Lasix. Admitted with CHF exacerbation. Put on IV Lasix. On June 04 -was taken to for thoracentesis and it was a bit difficult by IR. Patient went into PEA cardiac arrest. intubated. Hypotensive. Moved to ICU. Thora-vent was placed. About 850 mL of pus-bloody fluid was obtained. [id number]. On the ventilator. Telemetry shows sinus rhythm. Left chest tube to suction. On IV levo fed and propofol. Tube feeding. Granddaughter at the bedside. 06/08/2020 Patient is currently mechanical ventilator and is being monitored in the ICU. Sedated. low dose levophed. Chest x-ray showed cardiomegaly with central vascular congestion and small to moderate sized bilateral pleural fluid collections with the left sided pleural drainage catheter. Bronchial fluid cultures negative so far. Laboratory data showed WBC 8.2, hemoglobin 7.0 and platelets 87 BUN 84 and creatinine 3.29 Albumin 2.2 06/09/2020 Patient remains on ventilator and is currently sedated. Patient is also on Levophed drip. Chest x-ray showed suspect some improvement in patient's volume status. There may be basilar effusions. Atelectasis, difficult to exclude pneumonia. Patient does have chest tube with minimal drainage. Laboratory data showed WBC 11.8, hemoglobin 7.9 and platelets 87 BUN 88 and creatinine 3.06 Pulmonary and nephrology is on board. 06/10/2020 Patient is currently extubated and is saturating well on oxygen via nasal cannula. Patient is otherwise awake alert and trying to communicate. Chest x-ray this morning showed improving aeration of the left especially in the upper and midlung after left-sided chest tube placement. Focal opacity remains at the left base as well as trace right effusion. 2D echocardiogram showed ejection fraction 40 to 45% there is severe tricuspid regurgitation present. Severe pulmonary hypertension. Left ventricle systolic pressure is 84.96 mmHg. Laboratory data showed WBC 13.2, hemoglobin 7.3 and platelets 83 BUN 100 and creatinine 2.97 06/11/2020 Patient is currently remained ICU. Awake alert but not communicating. Patient is off the ventilator. Currently on oxygen via nasal cannula. Patient is status post chest tube placement. Repeat chest x-ray showed lung seems expanded but left lower lobe remains consolidated. Patient is still on Levophed drip at low-dose. Patient went into A. fib with RVR and was started on amiodarone drip. Cardiology was consulted. Creatinine level is elevated. Nephrology is following. 06/12/2020 Patient is currently in MICU. Awake alert and oriented but communicating very slowly. Able to follow simple commands. Continued on Lasix drip. Patient is also reporting Levophed drip. Amiodarone drip due to atrial fibrillation with RVR. Chest x-ray showed persistent left-sided volume loss with worsening left lung opacity despite chest tube in place. Suggests worsening left-sided pleural effusion and associated left lung atelectasis and/or infiltrate. Patient is being continued on antibiotics in the form of Zosyn. Cardiology, pulmonary and nephrology is on board. Laboratory data showed WBC 23.2, hemoglobin 7.3, platelets 131 BUN 96 and creatinine 3.56 Urinalysis is negative for infection. Patient has been afebrile. 06/13/2020 Patient is currently remains in MICU. More awake and oriented and able to talk simple words. Denied any chest pain. No worsening shortness of breath. patient is currently on oxygen via nasal cannula. Patient was BiPAP in the morning. Chest x-ray showed cardiomegaly and interstitial prominence correlate for CHF with mild pulmonary vascular congestion. Improving aeration in the left with decreased but persistent moderate left pleural effusion with adjacent atelectasis and/or consolidation. Chest tube remains in place. Increasing small right effusion. remains on levophed. 06/14/2020 Patient says she is feeling better. Patient can use to have left-sided chest tube to wall suction there is a concern about chylothorax patient remains on IV Lasix drip, patient is also on IV hydrocortisone every 6 hours. Patient does have sick euthyroid syndrome TSH need to be repeated again. 06/15/2020 Patient is still has a chest tube which is draining. Patient went into hypercapnic respiratory failure yesterday for which patient was started on BiPAP patient was initiated on hemodialysis and is undergoing hemodialysis today 06/16/2020 Patient is quite a bit lethargic patient is off BiPAP at this time patient is still on hyperelastic cannula oxygen patient is undergoing hemodialysis today patient is a low-dose of norepinephrine. Can use to have a chest tube AST and ALP are bit worse. 06/17/2020 Patient is off BiPAP is on high flow nasal cannula oxygen at this time patient's norepinephrine was discontinued patient is undergoing hemodialysis on daily basis. 06/19/2020 Patient is off BiPAP today patient is doing much better today and the patient is on dialysis. Doing well awake. Patient has a Dobbhoff tube that was placed and receiving appropriate through the Dobbhoff tube pleural fluid cultures did not show any growth. 06/20/2020 Patient is on BiPAP patient is will not undergo hemodialysis today does have significant pedal edema in both legs. Patient did not have any significant improvement since admission in spite of aggressive measures probably Will need to discuss hospice with the family. Constitutional: Denied any fatigue denied any fever. Cardio vascular: denied any chest pain, palpitations Gastrointestinal denied any nausea vomiting Pulmonary: Denied any shortness of breath cough Neurologic denied any new focal deficits All inpatient medications were reviewed and appropriate changes in these medications as dictated in the interval history and assessment and plan. Objective - Vital Signs Vital signs: Vital Signs Temp 97.2 F L 06/20/20 12:00 Pulse 62 06/20/20 12:00 Resp 14 06/20/20 12:00 BP 97/60 06/20/20 12:00 Pulse Ox 99 06/20/20 12:00 Intake & Output 06/19/20 06/20/20 06/20/20 18:59 06:59 18:59 Intake Total 930 1030 20 Output Total 6702 24 0 Balance -5772 1006 20 Weight 193.412 kg Intake: IV 340 340 20 Piperacillin-Tazobactam 3 100 100 .375 gm In Sodium Chloride 0.9% 100 ml @ 25 mls/hr IVPB Q12HR [facility] Rx #:[id number] Sodium Chloride 0.9% 1, 240 240 20 000 ml @ 20 mls/hr IV . Q24H [facility] Rx#:[id number] Tube Feeding 400 600 Other 190 90 Output: Urine 2 24 0 Hemodialysis 3200 Other 3500 Other: Voiding Method Indwelling Catheter Indwelling Catheter ABP, PAP, CO, CI - Last Documented Arterial Blood Pressure 108/65 - Exam PHYSICAL EXAMINATION: GENERAL: Patient looks much better today awake alert on aspirin cannula oxygen has a Dobbhoff tube in place HEENT: Pupils are round and equally reacting to light. EOMI. No scleral icterus. No conjunctival pallor. Normocephalic, atraumatic. No pharyngeal erythema. No thyromegaly. CARDIOVASCULAR: S1 and S2 present. No murmurs, rubs, or gallops. PULMONARY: Chest is clear to auscultation, no wheezing or crackles. ABDOMEN: Soft, nontender, nondistended, normoactive bowel sounds. No palpable organomegaly. MUSCULOSKELETAL: No joint swelling or deformity. EXTREMITIES: No cyanosis, clubbing, extensive bilateral pedal edema NEUROLOGICAL: Gross neurological examination did not reveal any focal deficits. SKIN: No rashes. - Labs CBC & Chem 7: 06/20/20 05:10 06/20/20 05:10 Labs: Abnormal Lab Results - Last 24 Hours (Table) 06/19/20 06/20/20 06/20/20 Range/Units 18:33 00:24 03:52 WBC (3.8-10.6) k/uL RBC (3.80-5.40) m/uL Hgb (11.4-16.0) gm/dL Hct (34.0-46.0) % MCHC (31.0-37.0) g/dL RDW (11.5-15.5) % Plt Count (150-450) k/uL Sodium (137-145) mmol/L Potassium (3.5-5.1) mmol/L Chloride (98-107) mmol/L BUN (7-17) mg/dL Creatinine (0.52-1.04) mg/dL Glucose (74-99) mg/dL POC Glucose (mg/dL) 122 H 125 H 115 H (75-99) mg/dL 06/20/20 06/20/20 06/20/20 Range/Units 05:10 05:10 05:17 WBC 12.0 H (3.8-10.6) k/uL RBC 2.56 L (3.80-5.40) m/uL Hgb 7.1 L (11.4-16.0) gm/dL Hct 24.4 L (34.0-46.0) % MCHC 28.9 L (31.0-37.0) g/dL RDW 20.1 H (11.5-15.5) % Plt Count 69 L (150-450) k/uL Sodium 132 L (137-145) mmol/L Potassium 3.2 L (3.5-5.1) mmol/L Chloride 97 L (98-107) mmol/L BUN 39 H (7-17) mg/dL Creatinine 2.61 H (0.52-1.04) mg/dL Glucose 114 H (74-99) mg/dL POC Glucose (mg/dL) 124 H (75-99) mg/dL Assessment and Plan Plan: Assessment and Plan Assessment: -s/p Cardiac arrest with PEA, patient was intubated and was extubated on the June 09, patient had complete opacification of the left lung and had pleural tap and presently at bedtime 2 the fluid was suspicious for chylothorax and the fluid was transudative nature -Acute hypoxic, hypercapnic respiratory failure-requiring ventilator, patient is off ventilatory support as mentioned above but the patient is presentlyon BiPAP. Patient usually uses BiPAP when sleeping and also muscle cannula oxygen when awakedate patient respiratory failure appears to be secondary to heart failure and diastolic dysfunction along with morbid obesity and restrictive lung disease leading to hypercapnia -Left-sided pleural effusion and consolidation and a possible pneumonia and patient is on IV antibiotics in form of Zosyn Status post chest tube placement, chest tube will be removed today on 06/17/2020, all the cultures are so far negative there is no clear evidence of pneumonia either. -New onset A. fib with RVR. -Hypotensive shock requiring pressor support. possibe Septic shock due to Pneumonia -Acute on Chronic congestive heart failure from diastolic dysfunction - Severe pulmonary hypertension and severe TR. - Acute kidney injury secondary to ATN secondary to cardiac arrest/hemodynamic instability. -Chronic kidney disease stage IV secondary to nephrosclerosis, patient will undergo catheter placement for possible dialysis -Morbid obesity BMI 75.2 -Chronic kidney disease metabolicl bone disease -Anemia of chronic kidney disease, received the many blood transfusions patient's ferritin is low serum iron O's are being obtained. Patient present hemoglobin is around 7.1 -Persistent atrial fibrillation, rate controlled Nonalcoholic fatty liver disease -COPD in an ex-smoker -Primary osteoarthritis -Obstructive sleep apnea -Chronic gout -Chronic hypoxic respiratory failure from COPD -Chronic medical debility and a baseline patient does use a lift to a wheelchair -Thoracentesis patient has a left-sided chest tube which was removed
[2020-06-20 14:41] VITALS: BP 108/85; PULSE 54; RESP 10
[2020-06-20] MEDS ORDERED: EPINEPHrine 10 ML SYRINGE (0.1 MG/ML) ONE (22:08)
[2020-06-20] MEDS ORDERED: SODIUM BICARB 8.4% 50 ML SYR (1 MEQ/ML) ONE (22:08)
--- NOTE | 2020-06-23 08:51 | CDI ---
Documentation Clarification Form Date: 06/23/20 From: Yoana Angeles Phone: If you have a question about this query, please contact Carolin Bowser Inspector [employer] at [phone] between 8am and 5pm. Admit Date: 06/02/20 Discharge Date:06/20/20 Patient Name: Yojana Anand Visit Number: [id number] ATTENTION: The Clinical Documentation Specialists (CDI) and [facility] Coding Staff appreciate your assistance in clarifying documentation. Please respond to the clarification below the line at the bottom and electronically sign. The CDI & [facility] Coding staff will review the response and follow-up if needed. Please note: Queries are made part of the Legal Health Record. If you have any questions, please contact the author of this message via ITS. Dear Dr. Stephens Documentation in Dr. Mondragon's progress notes and Dr. Curtis's progress notes states, " Acute left lower lobe pneumonia and possible septic shock on presentation." No documentation of pneumonia or sepsis in the H&P. History/Risk Factors: Pneumonia, septic shock, ATN, CHF exacerbation, acute respiratory failure & pneumothorax beginning 06/04 Clinical Indicators: Increasing shortness of breath, worsening lower extremity edema, mild cough WBC 9.3 on 06/02; 15.2 on 06/05 Lactic acid: Not tested X-ray: CXR: 06/02 - New completely opacified left hemithorax without obvious mediastinal shift. Consider obstructing central endobronchial mass and/or mucous plugging. CXR: 06/05 - Increasing consolidation may represent pleural effusion or postobstructive pneumonia or atelectasis with abrupt termination of the left mainstem bronchus. Lung/breathing assessment: Respiratory rate increased, distant breath sounds documented in the H&P. Ralse, decreased breath sounds documented in the ED Note Blood cultures on 06/02: No growth Vital signs: On admit - T. 97.4, P. 68, R. 18, BP 119/4; On 06/04 - T. 93.1, P. 114, R. 28, BP 98/54 Treatment: Antibiotics: IV Rocephin 1000 mg once on 06/02, IV Zosyn started on 06/04 Breathing tx: Albuterol 2.5 mg once on 06/02 O2: 06/02 - 2 lpm per nasal cannula, 06/01 - mechanical vent Definition of Present on Admission (POA): A diagnosis present at the time the order for admission to inpatient status was written. For each diagnosis, documentation must be clear to determine if the condition was present at the time of the patients inpatient admission or developed during the hospital stay. Please clarify if pneumonia was POA: ____Y = Yes, the condition was present at the time of the order for inpatient admission. __+__N = No, the condition was not present at the time of the order for inpatient admission. ____W = Clinically undetermined if the condition was present at the time of the order for inpatient admission. Please clarify if septic shock was POA ____Y = Yes, the condition was present at the time of the order for inpatient admission. __+__N = No, the condition was not present at the time of the order for inpatient admission. ____W = Clinically undetermined if the condition was present at the time of the order for inpatient admission. MTDD
--- NOTE | 2020-06-23 10:00 | P.DS ---
Providers Date of admission: 06/20/20 15:46 Attending physician: Leonardo Stephens [facility] Course: Patient and family agreed on hospice because of nonimprovement with aggressive measures and her overall poor prognosis patient was subsequently made hospice and patient will be transitioned to inpatient hospice and possibility of discharge tomorrow to longterm with hospice. Please refer to the progress note from yesterday for further details. Patient Condition at Discharge: Stable Plan - Discharge Summary New Discharge Prescriptions: No Action Albuterol Sulfate [Albuterol Sulfate Hfa] 2 puff INHALATION RT-Q4H PRN PRN Reason: Shortness Of Breath LORazepam [Ativan] 0.5 mg PO Q6H PRN #12 tab PRN Reason: Anxiety MORPHINE ORAL FARHAD CONC 20mg/mL [Roxanol Oral Soln Conc 20Mg/ml] 5 mg PO Q4H PRN #30 ml PRN Reason: Pain Control Scopolamine 1.5MG/72Hr Patch [TransDerm Scop] 1 patch TRANSDERM Q72H #1 patch Discharge Medication List Albuterol Sulfate [Albuterol Sulfate Hfa] 2 puff INHALATION RT-Q4H PRN 04/30/20 [History] LORazepam [Ativan] 0.5 mg PO Q6H PRN #12 tab 06/21/20 [Rx] MORPHINE ORAL FARHAD CONC 20mg/mL [Roxanol Oral Soln Conc 20Mg/ml] 5 mg PO Q4H PRN #30 ml 06/21/20 [Rx] Scopolamine 1.5MG/72Hr Patch [TransDerm Scop] 1 patch TRANSDERM Q72H #1 patch 06/21/20 [Rx] Follow up Appointment(s)/Referral(s): Jake Rodriguez MD [Primary Care Provider] - 1-2 days Discharge Disposition: DISCH TO HOSPICE MED FACILTY
== END 2020-06-20 15:41 | disposition hospice, inpatient (51) | DRG 291 ==
LOC: EC 12:31 → 3SCARD 13:55 → 2SICU 06-04 16:40
PROVIDERS: ADMIT Hospitalist; ATTEND Hospitalist
PROC: 0BH17EZ Insertion of Endotracheal Airway into Trachea, Via Natural or Artificial Opening (ICD-10-PCS; principal; 2020-06-04)
PROC: 5A1955Z Respiratory Ventilation, Greater than 96 Consecutive Hours (ICD-10-PCS; principal; 2020-06-04)
PROC: 5A12012 Performance of Cardiac Output, Single, Manual (ICD-10-PCS; 2020-06-04)
PROC: 3E033XZ Introduction of Vasopressor into Peripheral Vein, Percutaneous Approach (ICD-10-PCS; 2020-06-04)
PROC: 0W9B30Z Drainage of Left Pleural Cavity with Drainage Device, Percutaneous Approach (ICD-10-PCS; 2020-06-04)
PROC: 03HY32Z Insertion of Monitoring Device into Upper Artery, Percutaneous Approach (ICD-10-PCS; 2020-06-04)
PROC: 05HY33Z Insertion of Infusion Device into Upper Vein, Percutaneous Approach (ICD-10-PCS; 2020-06-04)
PROC: 0B978ZZ Drainage of Left Main Bronchus, Via Natural or Artificial Opening Endoscopic (ICD-10-PCS; 2020-06-04)
PROC: 4A133BC Monitoring of Arterial Pressure, Coronary, Percutaneous Approach (ICD-10-PCS; 2020-06-04)
PROC: 0W9B30Z Drainage of Left Pleural Cavity with Drainage Device, Percutaneous Approach (ICD-10-PCS; 2020-06-04)
PROC: 0D9670Z Drainage of Stomach with Drainage Device, Via Natural or Artificial Opening (ICD-10-PCS; 2020-06-05)
PROC: 30233N1 Transfusion of Nonautologous Red Blood Cells into Peripheral Vein, Percutaneous Approach (ICD-10-PCS; 2020-06-07)
PROC: 3E0336Z Introduction of Nutritional Substance into Peripheral Vein, Percutaneous Approach (ICD-10-PCS; 2020-06-08)
PROC: 5A09357 Assistance with Respiratory Ventilation, Less than 24 Consecutive Hours, Continuous Positive Airway Pressure (ICD-10-PCS; 2020-06-09)
PROC: 0W9B30Z Drainage of Left Pleural Cavity with Drainage Device, Percutaneous Approach (ICD-10-PCS; 2020-06-10)
PROC: 02HV33Z Insertion of Infusion Device into Superior Vena Cava, Percutaneous Approach (ICD-10-PCS; 2020-06-14)
PROC: 0JH63XZ Insertion of Tunneled Vascular Access Device into Chest Subcutaneous Tissue and Fascia, Percutaneous Approach (ICD-10-PCS; 2020-06-14)
PROC: 5A1D70Z Performance of Urinary Filtration, Intermittent, Less than 6 Hours Per Day (ICD-10-PCS; 2020-06-15)
PROC: 0DH67UZ Insertion of Feeding Device into Stomach, Via Natural or Artificial Opening (ICD-10-PCS; 2020-06-18)
DX: I13.0 Hypertensive heart and chronic kidney disease with heart failure and stage 1 through stage 4 chronic kidney disease, or unspecified chronic kidney disease (principal); G93.41 Metabolic encephalopathy; I46.9 Cardiac arrest, cause unspecified; J18.9 Pneumonia, unspecified organism; J96.21 Acute and chronic respiratory failure with hypoxia; J96.22 Acute and chronic respiratory failure with hypercapnia; I50.43 Acute on chronic combined systolic (congestive) and diastolic (congestive) heart failure; N17.0 Acute kidney failure with tubular necrosis; A41.9 Sepsis, unspecified organism; R65.21 Severe sepsis with septic shock; E27.49 Other adrenocortical insufficiency; G93.49 Other encephalopathy; I48.19 Other persistent atrial fibrillation; I48.92 Unspecified atrial flutter; J44.0 Chronic obstructive pulmonary disease with (acute) lower respiratory infection; J91.8 Pleural effusion in other conditions classified elsewhere; J93.82 Other air leak; J98.11 Atelectasis; N18.4 Chronic kidney disease, stage 4 (severe); J93.9 Pneumothorax, unspecified; R04.2 Hemoptysis; Z68.45 Body mass index [BMI] 70 or greater, adult; I50.810 Right heart failure, unspecified; I27.20 Pulmonary hypertension, unspecified; D63.1 Anemia in chronic kidney disease; E83.9 Disorder of mineral metabolism, unspecified; I89.8 Other specified noninfective disorders of lymphatic vessels and lymph nodes; E86.0 Dehydration; I42.9 Cardiomyopathy, unspecified; K76.0 Fatty (change of) liver, not elsewhere classified; E11.22 Type 2 diabetes mellitus with diabetic chronic kidney disease; E03.9 Hypothyroidism, unspecified; E07.81 Sick-euthyroid syndrome; E66.01 Morbid (severe) obesity due to excess calories; E78.1 Pure hyperglyceridemia; E78.5 Hyperlipidemia, unspecified; E87.5 Hyperkalemia; G43.909 Migraine, unspecified, not intractable, without status migrainosus; G47.33 Obstructive sleep apnea (adult) (pediatric); I07.1 Rheumatic tricuspid insufficiency; K29.50 Unspecified chronic gastritis without bleeding; K44.9 Diaphragmatic hernia without obstruction or gangrene; K59.00 Constipation, unspecified; M1A.9XX0 Chronic gout, unspecified, without tophus (tophi); M15.9 Polyosteoarthritis, unspecified; R53.81 Other malaise; S30.811A Abrasion of abdominal wall, initial encounter; R40.2142 Coma scale, eyes open, spontaneous, at arrival to emergency department; R40.2362 Coma scale, best motor response, obeys commands, at arrival to emergency department; R40.2252 Coma scale, best verbal response, oriented, at arrival to emergency department; M21.379 Foot drop, unspecified foot; Z74.01 Bed confinement status; Z79.82 Long term (current) use of aspirin; Z79.899 Other long term (current) drug therapy; Z87.01 Personal history of pneumonia (recurrent); Z87.440 Personal history of urinary (tract) infections; Z88.8 Allergy status to other drugs, medicaments and biological substances; Z91.041 Radiographic dye allergy status; Z87.11 Personal history of peptic ulcer disease; Z98.890 Other specified postprocedural states; Z87.891 Personal history of nicotine dependence; Z99.81 Dependence on supplemental oxygen; Z99.89 Dependence on other enabling machines and devices; Z80.0 Family history of malignant neoplasm of digestive organs; Z82.49 Family history of ischemic heart disease and other diseases of the circulatory system
CPT/HCPCS: 32555; 36415; 36558; 36573; 36600; 51702; 71045; 76604; 80048; 80053; 81001; 82465; 82533; 82570; 82805; 82945; 83615; 83735; 83880; 84132; 84145; 84157; 84300; 84439; 84443; 84478; 84484; 84540; 85025; 85027; 85610; 85730; 86704; 86706; 86850; 86900; 86901; 86920; 87040; 87070; 87205; 87340; 88108; 88305; 89050; 90935; 93005; 93306; 94002; 94003; 94640; 94660; 94760; 96374; 96375; 99285

== ENCOUNTER 2020-06-20 15:05 | Inpatient (IN) | payer MEDICAID ==
[2020-06-20] MEDS ORDERED: ATROPINE OPHTH SOLN 1% 5ML BTL SUBLINGUAL PRN (15:11)
[2020-06-20] MEDS ORDERED: LORazepam 2 MG/ML INJ IV PRN (15:11)
[2020-06-20] MEDS ORDERED: ONDANSETRON 4 MG/2 ML VIAL IVP PRN (15:11)
[2020-06-20] MEDS ORDERED: ACETAMINOPHEN TAB 325 MG TAB PO PRN (15:11)
[2020-06-20] MEDS ORDERED: SCOPOLAMINE 1.5MG/72HR PATCH TRANSDERM PRN (15:11)
[2020-06-20] MEDS: MORPHINE SULFATE 4 MG/ML SYRINGE IV PRN (19:09)
[2020-06-21] MEDS: MORPHINE SULFATE 4 MG/ML SYRINGE IV PRN ×2 (05:38→13:31)
[2020-06-21 09:11] VITALS: BP 72/49; PULSE 57; RESP 14; TEMP 96.5
--- NOTE | 2020-06-21 10:24 | P.DS ---
Providers Date of admission: 06/20/20 15:46 Attending physician: Leonardo Stephens Primary care physician: [facility] Course: Patient and family agreed on hospice because of nonimprovement with aggressive measures and her overall poor prognosis patient was subsequently made hospice and patient will be transitioned to inpatient hospice and possibility of discharge tomorrow to half-way with hospice. Please refer to the progress note from yesterday for further details. Plan - Discharge Summary New Discharge Prescriptions: No Action Folic Acid 1 mg PO DAILY@1200 Cholecalciferol [Vitamin D3 (25 Mcg = 1000 Iu)] 2,000 unit PO DAILY@1700 bisacodyL [Dulcolax] 10 mg RECTAL DAILY PRN PRN Reason: Constipation Ferrous Sulfate [Iron (65 MG Elemental)] 325 mg PO DAILY@1200 Atorvastatin [Lipitor] 40 mg PO HS@2100 Epoetin Juan Jose [Procrit] 20,000 unit SQ TH Linaclotide [Linzess] 145 mcg PO DAILY@0800 Calcium Acetate [PhosLo] 667 mg PO DAILY@0800 Sennosides [Senna] 8.6 - 17.2 mg PO HS PRN PRN Reason: Constipation Lactulose 10 gm PO BID PRN PRN Reason: Constipation calcitrioL [Calcitriol] 0.25 mcg PO DAILY@1700 Isosorbide Mononitrate ER [Imdur] 30 mg PO DAILY@0800 Ipratropium-Albuterol Nebulize [Duoneb 0.5 mg-3 mg/3 ml Soln] 3 ml INHALATION RT-QID Aspirin 81 mg PO DAILY@1200 Acetaminophen Tab [Tylenol] 650 mg PO Q4H PRN PRN Reason: Pain Or Fever > 100.5 Co Q-10 60mg 60 mg PO DAILY@1700 Hydrocortisone Cream [Hydrocortisone 2.5% Cream] 1 applic TOPICAL BID allopurinoL [Zyloprim] 100 mg PO DAILY@0800 Loratadine [Claritin] 10 mg PO Q48H PRN PRN Reason: Allergy Symptoms Albuterol Sulfate [Albuterol Sulfate Hfa] 2 puff INHALATION RT-Q4H PRN PRN Reason: Shortness Of Breath Magnesium Hydroxide [Milk of Magnesia Concentrate] 7,200 mg PO DAILY PRN PRN Reason: Constipation Acetaminophen-Codeine 300-30mg [Tylenol w/codeine #3] 1 tab PO TID PRN #9 tab PRN Reason: Pain Metoprolol Tartrate [Lopressor] 25 mg PO BID@0800,1700 Potassium Chloride [Klor-Con 10] 10 meq PO SUTUTHSA@1700 Torsemide [Demadex] 40 mg PO DAILY@0800 Caldesene Powder 1 applic TOPICAL BID Discharge Medication List Folic Acid 1 mg PO DAILY@1200 12/19/16 [History] Cholecalciferol [Vitamin D3 (25 Mcg = 1000 Iu)] 2,000 unit PO DAILY@1700 12/30/16 [History] Ferrous Sulfate [Iron (65 MG Elemental)] 325 mg PO DAILY@1200 02/23/17 [History] bisacodyL [Dulcolax] 10 mg RECTAL DAILY PRN 02/23/17 [History] Atorvastatin [Lipitor] 40 mg PO HS@2100 06/25/17 [History] Calcium Acetate [PhosLo] 667 mg PO DAILY@0800 08/23/17 [History] Epoetin Juan Jose [Procrit] 20,000 unit SQ TH 08/23/17 [History] Linaclotide [Linzess] 145 mcg PO DAILY@0808/23/17 [History] Lactulose 10 gm PO BID PRN 11/20/18 [History] Sennosides [Senna] 8.6 - 17.2 mg PO HS PRN 11/20/18 [History] calcitrioL [Calcitriol] 0.25 mcg PO DAILY@17011/20/18 [History] Acetaminophen Tab [Tylenol] 650 mg PO Q4H PRN 05/23/19 [History] Aspirin 81 mg PO DAILY@1200 05/23/19 [History] Co Q-10 60mg 60 mg PO DAILY@17005/23/19 [History] Ipratropium-Albuterol Nebulize [Duoneb 0.5 mg-3 mg/3 ml Soln] 3 ml INHALATION RT-QID 05/23/19 [History] Isosorbide Mononitrate ER [Imdur] 30 mg PO DAILY@0805/23/19 [History] Hydrocortisone Cream [Hydrocortisone 2.5% Cream] 1 applic TOPICAL BID 10/28/19 [History] allopurinoL [Zyloprim] 100 mg PO DAILY@0800 12/31/19 [History] Albuterol Sulfate [Albuterol Sulfate Hfa] 2 puff INHALATION RT-Q4H PRN 04/30/20 [History] Loratadine [Claritin] 10 mg PO Q48H PRN 04/30/20 [History] Magnesium Hydroxide [Milk of Magnesia Concentrate] 7,200 mg PO DAILY PRN 04/30/20 [History] Acetaminophen-Codeine 300-30mg [Tylenol w/codeine #3] 1 tab PO TID PRN #9 tab 05/03/20 [Rx] Caldesene Powder 1 applic TOPICAL BID 06/02/20 [History] Metoprolol Tartrate [Lopressor] 25 mg PO BID@0800,1700 06/02/20 [History] Potassium Chloride [Klor-Con 10] 10 meq PO SUTUTHSA@1700 06/02/20 [History] Torsemide [Demadex] 40 mg PO DAILY@0800 06/02/20 [History]
--- NOTE | 2020-06-21 14:26 | P.DS ---
Providers Date of admission: 06/20/20 15:46 Expected date of discharge: 06/21/20 Attending physician: Leonardo Stephens Primary care physician: [facility] Course: Chief Complaint: Fluid overload History of presenting complaint: This is a pleasant 70-year-old patient was chronic stable medical conditions include CHF EF 55 and 55%, morbid obesity, chronic kidney disease stage IV secondary to nephrosclerosis, renal bone disease, anemia of chronic kidney disease, persistent atrial fibrillation, fatty liver, COPD, primary osteoarthritis, obstructive sleep apnea, chronic gout, on home oxygen, chronic medical debility at her baseline uses a lift a wheelchair. Patient is a resident at [facility]. Patient presents with increasing swelling about a week. Increase in shortness of breath. Appetite is okay. Bowel movements are okay. No fever no chills. Started on IV Lasix. Admitted with CHF exacerbation. Put on IV Lasix. On June 04 -was taken to for thoracentesis and it was a bit difficult by IR. Patient went into PEA cardiac arrest. intubated. Hypotensive. Moved to ICU. Thora-vent was placed. About 850 mL of pus-bloody fluid was obtained.-Intubated. Placed On the ventilator. Left chest tube to suction. IV levo fed and propofol. Tube feeding. Patient has rather protracted course in hospital. Did not make any significant improvement. Eventually patient's was made hospice. Patient admitted to inpatient hospice on June 20. Today-laying in bed. Drowsy tired. On seeing occasional questions. On comfort medications. Spoke to the nurse and spoke to the social worker psychiatric. Patient to be discharged to the [facility]. Discussion and discharge planning more than 35 minutes Physical examination: VITAL SIGNS: 96.5, 57,'s 14, 72/49, 92% on 1 L GENERAL: Laying in bed, lethargic EYES: Pupils equal. Conjunctiva normal. HEART: First and second heart sounds are normal; no edema. LUNGS: Respiratory rate increased, distant breath sounds- ABDOMEN: Soft, nontender, liver spleen not palpable, no masses palpable. PSYCH: Answering occasional questions MUSCULAR skeletal: [place] Assessment: -Acute on Chronic congestive heart failure from diastolic dysfunction EF 55-60% -Left pleural effusion 8 50 mL of fluid evacuated with Thora-vent now with the chest tube-slow to respond -Chronic kidney disease stage IV secondary to nephrosclerosis with some worsening -Morbid obesity BMI 75.2 -Chronic kidney disease renal bone disease -Anemia of chronic kidney disease -Persistent atrial fibrillation, rate controlled -Nonalcoholic fatty liver disease -COPD in an ex-smoker -Primary osteoarthritis -Obstructive sleep apnea -Chronic gout -Chronic medical debility and a baseline patient does use a lift to a wheelchair -Thoracentesis with the Thora-vent in place -Acute on chronic hypoxic, hypercapnic respiratory status post ventilator support- -Hypotensive shock requiring pressor support -Cardiac arrest from PEA. -Severe secondary pulmonary hypertension and severe tricuspid regurgitation. -Acute kidney injury secondary to ATN -Left lower lobe pneumonia with possible septic shock Disposition: ECF with hospice Patient Condition at Discharge: Poor Plan - Discharge Summary New Discharge Prescriptions: New LORazepam [Ativan] 0.5 mg PO Q6H PRN #12 tab PRN Reason: Anxiety MORPHINE ORAL FARHAD CONC 20mg/mL [Roxanol Oral Soln Conc 20Mg/ml] 5 mg PO Q4H PRN #30 ml PRN Reason: Pain Control Scopolamine 1.5MG/72Hr Patch [TransDerm Scop] 1 patch TRANSDERM Q72H #1 patch Continue Albuterol Sulfate [Albuterol Sulfate Hfa] 2 puff INHALATION RT-Q4H PRN PRN Reason: Shortness Of Breath Discontinued Folic Acid 1 mg PO DAILY@1200 Cholecalciferol [Vitamin D3 (25 Mcg = 1000 Iu)] 2,000 unit PO DAILY@1700 bisacodyL [Dulcolax] 10 mg RECTAL DAILY PRN PRN Reason: Constipation Ferrous Sulfate [Iron (65 MG Elemental)] 325 mg PO DAILY@1200 Atorvastatin [Lipitor] 40 mg PO HS@2100 Epoetin Juan Jose [Procrit] 20,000 unit SQ TH Linaclotide [Linzess] 145 mcg PO DAILY@0800 Calcium Acetate [PhosLo] 667 mg PO DAILY@0800 Sennosides [Senna] 8.6 - 17.2 mg PO HS PRN PRN Reason: Constipation Lactulose 10 gm PO BID PRN PRN Reason: Constipation calcitrioL [Calcitriol] 0.25 mcg PO DAILY@1700 Isosorbide Mononitrate ER [Imdur] 30 mg PO DAILY@0800 Ipratropium-Albuterol Nebulize [Duoneb 0.5 mg-3 mg/3 ml Soln] 3 ml INHALATION RT-QID Aspirin 81 mg PO DAILY@1200 Acetaminophen Tab [Tylenol] 650 mg PO Q4H PRN PRN Reason: Pain Or Fever > 100.5 Co Q-10 60mg 60 mg PO DAILY@1700 Hydrocortisone Cream [Hydrocortisone 2.5% Cream] 1 applic TOPICAL BID allopurinoL [Zyloprim] 100 mg PO DAILY@0800 Loratadine [Claritin] 10 mg PO Q48H PRN PRN Reason: Allergy Symptoms Magnesium Hydroxide [Milk of Magnesia Concentrate] 7,200 mg PO DAILY PRN PRN Reason: Constipation Acetaminophen-Codeine 300-30mg [Tylenol w/codeine #3] 1 tab PO TID PRN #9 tab PRN Reason: Pain Metoprolol Tartrate [Lopressor] 25 mg PO BID@0800,1700 Potassium Chloride [Klor-Con 10] 10 meq PO SUTUTHSA@1700 Torsemide [Demadex] 40 mg PO DAILY@0800 Caldesene Powder 1 applic TOPICAL BID Discharge Medication List Albuterol Sulfate [Albuterol Sulfate Hfa] 2 puff INHALATION RT-Q4H PRN 04/30/20 [History] LORazepam [Ativan] 0.5 mg PO Q6H PRN #12 tab 06/21/20 [Rx] MORPHINE ORAL FARHAD CONC 20mg/mL [Roxanol Oral Soln Conc 20Mg/ml] 5 mg PO Q4H PRN #30 ml 06/21/20 [Rx] Scopolamine 1.5MG/72Hr Patch [TransDerm Scop] 1 patch TRANSDERM Q72H #1 patch 06/21/20 [Rx] Follow up Appointment(s)/Referral(s): Enmanuel Perez DO [Primary Care Provider] - 1-2 Days
== END 2020-06-21 17:13 | DRG 951 ==
LOC: 2SICU 15:46
PROVIDERS: ADMIT Hospitalist; ATTEND Hospitalist
DX: Z51.5 Encounter for palliative care (principal); I50.33 Acute on chronic diastolic (congestive) heart failure; J96.22 Acute and chronic respiratory failure with hypercapnia; J96.21 Acute and chronic respiratory failure with hypoxia; I46.9 Cardiac arrest, cause unspecified; N17.0 Acute kidney failure with tubular necrosis; J18.9 Pneumonia, unspecified organism; R65.21 Severe sepsis with septic shock; I13.0 Hypertensive heart and chronic kidney disease with heart failure and stage 1 through stage 4 chronic kidney disease, or unspecified chronic kidney disease; Z68.45 Body mass index [BMI] 70 or greater, adult; I48.19 Other persistent atrial fibrillation; N18.4 Chronic kidney disease, stage 4 (severe); J91.8 Pleural effusion in other conditions classified elsewhere; J44.0 Chronic obstructive pulmonary disease with (acute) lower respiratory infection; E83.9 Disorder of mineral metabolism, unspecified; D63.1 Anemia in chronic kidney disease; K76.0 Fatty (change of) liver, not elsewhere classified; Z99.81 Dependence on supplemental oxygen; E66.01 Morbid (severe) obesity due to excess calories; I27.29 Other secondary pulmonary hypertension; Z66 Do not resuscitate; Z20.828 Contact with and (suspected) exposure to other viral communicable diseases; M19.91 Primary osteoarthritis, unspecified site; G47.33 Obstructive sleep apnea (adult) (pediatric); I07.1 Rheumatic tricuspid insufficiency; K44.9 Diaphragmatic hernia without obstruction or gangrene; M1A.9XX0 Chronic gout, unspecified, without tophus (tophi); Z79.82 Long term (current) use of aspirin; Z79.899 Other long term (current) drug therapy; Z87.891 Personal history of nicotine dependence; Z99.3 Dependence on wheelchair; Z87.01 Personal history of pneumonia (recurrent); Z87.440 Personal history of urinary (tract) infections; Z87.11 Personal history of peptic ulcer disease; Z98.891 History of uterine scar from previous surgery; Z98.890 Other specified postprocedural states; Z80.0 Family history of malignant neoplasm of digestive organs; Z82.49 Family history of ischemic heart disease and other diseases of the circulatory system
CPT/HCPCS: 87635